=== PATIENT | male | born 2000 | race Caucasian/White ===

== ENCOUNTER 2024-10-17 11:57 | Inpatient (IN) | payer MEDICAID, OTHER, SELFPAY ==
[2024-10-17 12:10] VITALS: BP 145/76; PULSE 97; RESP 16; TEMP 37.3; O2SAT 98
[2024-10-17 14:02] LABS: Alanine Aminotransferase 56 U/L (0-40); Albumin Level 4.5 g/dL (3.5-5.0); Alkaline Phosphatase 88 U/L (39-117); Anion Gap 10 (12-20); Aspartate Amino Transferase 35 U/L (5-37); Bilirubin Total 0.5 mg/dL (0.0-1.0); Blood Urea Nitrogen 13 mg/dL (9-16); Calcium 9.8 mg/dL (8.4-10.2); Carbon Dioxide 25 mmol/L (22-29); Chloride 111 mmol/L (96-108); Estimated Glomerular Filt Rate > 60; Glucose Random 121 mg/dL (60-115); Potassium 3.7 mmol/L (3.3-5.1); Sodium 142 mmol/L (135-145)
--- NOTE | 2024-10-17 15:46 | PC.ADMIT ---
Dario is a 24 y/o telugu speaking male who was admitted to at [address] [facility] on A CV for treatment of psychosis, unspecified type diagnosis. The pt was initially sent to the hospital with SI and a plan to hang himself. Mom was reporting that he was not sleeping and was confused. Mom also says pt was having AH and fearful that others were out to get him. Pt denies AH or fears at this time saying,? everything is fine, I?m ok.? Pt is A&O X3, calm and cooperative. Pt reports no depression, but appears sad with a flat affect. Pt denying AVH at the time of the interview with the assembler flexible leads. Pt reported that he had fears of ?people being after him?, but not anymore. Pts speech is quit in tone. Pt denies ideation, plan or intent to harm self or others. He reports a good appetite and good sleep.? Pts tox screen was negative except for THC, last used prior to hospitalization. Pt has no known acute medical issues or concerns. His goal is to return home. Pt was placed on 15 safety checks.
[2024-10-17] MEDS: Flu Vacc TS2024-25(6mos up)/PF 0.5 ML SYRINGE IM (16:11)
[2024-10-17 19:40] VITALS: BP 142/74; PULSE 85; TEMP 36.5; O2SAT 99
[2024-10-17] MEDS: OLANZapine 5 MG TABLET PO (20:10)
[2024-10-18 08:00] VITALS: BP 144/83; PULSE 87; RESP 18; TEMP 36.3; O2SAT 99
[2024-10-18] MEDS: OLANZapine 5 MG TABLET PO ×2 (08:01→20:46)
[2024-10-18 08:32] LABS: Estimated Average Glucose 97 mg/dL; Hemoglobin A1C 125.3775 umol/L; Total Hemoglobin (HGBA1C) 4031.7699 umol/L
[2024-10-18 08:37] LABS: Cholesterol 104 mg/dL (<200); HDL Cholesterol 23 mg/dL (>40); LDL Cholesterol Calculated 45 mg/dL (<100); Triglycerides 180 mg/dL (<150)
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
[2024-10-18 20:00] VITALS: BP 140/79; PULSE 78; TEMP 36.4; O2SAT 97
[2024-10-19 08:00] VITALS: BP 165/86; PULSE 86; RESP 16; TEMP 36.5; O2SAT 100
[2024-10-19] MEDS: OLANZapine 5 MG TABLET PO ×2 (08:45→14:01)
--- NOTE | 2024-10-19 12:02 | HO.PSYCHPN ---
Subjective Subjective Date of Service: 10/19/24 Reason For Visit: decompensation Interim History: Met with patient; discussed with team Patient says that the AH of guns and drugs are gone however he is still hearing AH, saying piece of shit over and over; this was happening before 2 and now it has increased. Patient agrees to increase Zyprexa since it has already been helpful. Patient otherwise feels that his mood is better, good and he is feeling safe on the unit Mental Status Exam Mental Status Exam Narrative: Pt is alert and oriented; behavior is cooperative, friendly and calm; patient is not in distress; dressed in casual attire with unkempt hair, marginal hygiene; mood is described as good and affect congruent brighter, more calm; eye contact appropriate; Speech is normal rate, volume and prosody and not pressured; no psychomotor agitation/retardation present; thought process is concrete, goal directed; Thought content is on dealing with AH; 0 paranoid delusional thinking expressed; denies any SI/HI. Continued AH Patients insight and judgment impaired but improving Diagnostics Vital Signs (24Hr): Vital Signs - 24 hr 10/18/24 20:00 10/19/24 08:00 Temperature 97.6 F 97.7 F Pulse Rate 78 86 Respiratory Rate 16 Blood Pressure 140/79 H 165/86 H Pulse Oximetry 97 100 Oxygen Delivery Method Room Air Labs 10/17/24 13:03 Labs: Laboratory Results - last 48 hr 10/17/24 10/18/24 13:03 07:55 Sodium 142 Potassium 3.7 Chloride 111 H Carbon Dioxide 25 Anion Gap 10 L BUN 13 Creatinine 0.81 Estim Creat Clear Calc TNP Estimated GFR > 60 Random Glucose 121 H Estimat Average Glucose 97 Hemoglobin A1c % 5.0 Calcium 9.8 Total Bilirubin 0.5 AST 35 ALT 56 H Alkaline Phosphatase 88 Total Protein 8.0 Albumin 4.5 Triglycerides 180 H Cholesterol 104 LDL Cholesterol, Calc 45 HDL Cholesterol 23 L Medications Medications Current Medications Acetaminophen (Acetaminophen 325 Mg Tablet) 650 mg PO Q6H PRN PRN Reason: Headache/Pain Mild Scale (1-3) Al Hydroxide/Mg Hydroxide (Magnesium Hydrox/Alum Hydrox 30 Ml Oral.Susp) 30 ml PO Q6H PRN PRN Reason: Heartburn/Nausea Hydroxyzine HCl (Hydroxyzine Hcl 25 Mg Tablet) 25 mg PO Q6H PRN PRN Reason: Anxiety Magnesium Hydroxide (Milk Of Magnesia 30 Ml Oral.Susp) 30 ml PO DAILY PRN PRN Reason: Constipation Nicotine (Nicotine 21 Mg Patch.Td24) 21 mg TRANSDERMA DAILY PRN PRN Reason: smoking cessation Nicotine Polacrilex (Nicotine Polacrilex 2 Mg Gum) 4 mg BUCCAL Q2H PRN PRN Reason: Nicotine Cravings Olanzapine (Olanzapine 5 Mg Tablet) 5 mg PO TID PRN PRN Reason: agitation Olanzapine (Olanzapine 5 Mg Tablet) 5 mg PO BID UZMA Last Admin: 10/19/24 08:45 Dose: 5 mg Trazodone HCl (Trazodone Hcl 50 Mg Tablet) 50 mg PO BEDTIME MRX1 PRN PRN Reason: Insomnia Allergies Allergies Allergy/AdvReac Type Severity Reaction Status Date / Time No Known Allergies Allergy Verified 10/17/24 12:27 Assessment & Plan Assessment & Plan (1) Schizophreniform disorder: Status: Acute Code(s): F20.81 - Schizophreniform disorder (2) Schizoaffective disorder, depressive type: Status: Suspected Code(s): F25.1 - Schizoaffective disorder, depressive type Plan HPI: Pt is a 24 yo male, with hx of depression, who presented to ED for SI with thoughts to hang himself in face of AH and paranoid delusions. Pt reports that he has been very sad but is feeling better now. Although reticent pt shares that he was stressed from his job. Patient has been working at his job for 1 year. About 3 months ago he quit explaining that bad things were going on at his job and he was scared that they would kill me...lot of drugs and guns... Patient clarifies he did not see guns/drugs but would hear people talking to him about it, specifically he would hear Cristopher Dockery (a co-worker) tell him such things while patient was in the cooler, working by himself. He clarifies he never actually saw Cristopher say these things, but could just hear him. Pt quit his job and for past 3 months has been staying at his mothers house feeling sad and afraid; while at home, he continued with AH and paranoid ideations. This past week, feeling very scared, he for first time ever had thoughts about killing himself (though no intent). He eventually told this to his mom brought him to the Hospital. At ED, they gave him Zyprexa and since, he no longer hears any voices or is worried about work, even feeling he could return. -uses cannabis daily; denies other drug/alcohol use -no hx of manic episodes -hx of depressive episodes that can last for weeks; not having a dad has been a source of emotional pain Formulation/clinical reasoning: Patient has a history of depression; seems that psychotic illness has revealed itself as over the past 3 months he has been having auditory hallucinations and paranoid delusions. Does not meet full criteria for schizophrenia since only 3 months but the consistency of symptoms strongly lean diagnosis in that direction. Technically meets criteria for schizophreniform; combined with depression likely schizoaffective disorder depressed type. Patient does not have insight that his past concerns are due to psychotic symptoms. However, he is grateful that Zyprexa medication, started in the emergency room, has resolved AH and his worries about work. Patient is amenable to continuing with treatment with Zyprexa. Patient still seems depressed, however this may be due to anxiety and missing his mother as patient is only 24 yo, hospitalized, [place] and with limited [place] speaking skills. Hospital course: 10/19 Patient says that the AH of guns and drugs are gone however he is still hearing AH, saying piece of shit over and over; this was happening before 2 and now it has increased.? Patient agrees to increase Zyprexa since it has already been helpful.? Patient otherwise feels that his mood is better, good and he is feeling safe on the unit; of note affect is noticeably brighter and more calm -play writer discussed diagnosis and patient seemed to understand that none of this is true but that his brain is playing tricks on him and that medication is the treatment Plan: CV Q 15 minute checks Continue Zyprexa 5 mg b.i.d. Gather collateral; patient gave permission to call his mother Patient educated on: diagnosis and medication risk/benefits Informed Consent: understands and further education needed Reason for continued inpatient stay Substantial Risk for: stable for discharge and rapid decompensation Time Spent With Patient Time: Total time managing care of this patient today ____ minutes.
[2024-10-19 20:00] VITALS: BP 156/93; PULSE 98; TEMP 36.8; O2SAT 98
[2024-10-19] MEDS: OLANZapine 10 MG TABLET PO (21:07)
--- NOTE | 2024-10-20 05:52 | P.PNPSI_ITS ---
Subjective Subjective Date of Service: 10/20/24 Reason For Visit: decompensation Subjective Notes: Conditional Voluntary Healthcare Proxy: No Guardianship: No Medical Problems Affecting Mental Status: No Interim History: Met with pt using computer bilingual customer service. Reviewed with team. Reports voices continue- they are saying his name, telling him he is fat, a piece of s---, and too big to matter. Feeling safe and supported on the unit, using prn's, feeling bored. Family is visiting today. Amimon playing is helpful to manage sx and pt is participating Medication Compliance: Yes Side effects from medications: No Attending Groups: Intermittent Review of Systems Acute medical concerns: No Medical Review of Systems: unchanged Review of Systems Review of Systems denies Mental Status Exam Mental Status Exam Patient Appearance: Appropriate Patient Orientation: Person, Place, Time and Situation Level of Consciousness: Alert Patient Behavior: Talkative, Suspicious and Good Eye Contact Mood Description: Depressed Affect Description: Flat Patient Cognition Impaired: No Ability to Follow Directions: Good Speech Pattern: Spontaneous Speech Memory Description: Intact Hallucinations: Auditory Perceptual Disturbances: Derealization Thought Process: Rumination Thought Content: positive for Circumstantial and positive for Perseveration Depressive Symptoms: Feelings of Worthlessness, Hopelessness, Unhappiness, Increased Fatigue, Low Self Esteem and Loss of Energy Judgement: Fair Diagnostics Vital Signs (24Hr): Vital Signs - 24 hr 10/19/24 08:00 10/19/24 20:00 Temperature 97.7 F 98.2 F Pulse Rate 86 98 Respiratory Rate 16 Blood Pressure 165/86 H 156/93 H Pulse Oximetry 100 98 Oxygen Delivery Method Room Air Labs 10/17/24 13:03 Labs: Laboratory Results - last 48 hr 10/18/24 07:55 Estimat Average Glucose 97 Hemoglobin A1c % 5.0 Triglycerides 180 H Cholesterol 104 LDL Cholesterol, Calc 45 HDL Cholesterol 23 L Medications Medications Current Medications Acetaminophen (Acetaminophen 325 Mg Tablet) 650 mg PO Q6H PRN PRN Reason: Headache/Pain Mild Scale (1-3) Al Hydroxide/Mg Hydroxide (Magnesium Hydrox/Alum Hydrox 30 Ml Oral.Susp) 30 ml PO Q6H PRN PRN Reason: Heartburn/Nausea Hydroxyzine HCl (Hydroxyzine Hcl 25 Mg Tablet) 25 mg PO Q6H PRN PRN Reason: Anxiety Magnesium Hydroxide (Milk Of Magnesia 30 Ml Oral.Susp) 30 ml PO DAILY PRN PRN Reason: Constipation Nicotine (Nicotine 21 Mg Patch.Td24) 21 mg TRANSDERMA DAILY PRN PRN Reason: smoking cessation Nicotine Polacrilex (Nicotine Polacrilex 2 Mg Gum) 4 mg BUCCAL Q2H PRN PRN Reason: Nicotine Cravings Olanzapine (Olanzapine 5 Mg Tablet) 5 mg PO TID PRN PRN Reason: agitation Olanzapine (Olanzapine 10 Mg Tablet) 10 mg PO BID UZMA Last Admin: 10/19/24 21:07 Dose: 10 mg Trazodone HCl (Trazodone Hcl 50 Mg Tablet) 50 mg PO BEDTIME MRX1 PRN PRN Reason: Insomnia Allergies Allergies Allergy/AdvReac Type Severity Reaction Status Date / Time No Known Allergies Allergy Verified 10/17/24 12:27 Assessment & Plan Assessment & Plan (1) Schizophreniform disorder: Status: Acute Code(s): F20.81 - Schizophreniform disorder (2) Schizoaffective disorder, depressive type: Status: Suspected Code(s): F25.1 - Schizoaffective disorder, depressive type Plan HPI: Pt is a 24 yo male, with hx of depression, who presented to ED for SI with thoughts to hang himself in face of AH and paranoid delusions. Pt reports that he has been very sad but is feeling better now. Although reticent pt shares that he was stressed from his job. Patient has been working at his job for 1 year. About 3 months ago he quit explaining that bad things were going on at his job and he was scared that they would kill me...lot of drugs and guns... Patient clarifies he did not see guns/drugs but would hear people talking to him about it, specifically he would hear Cristopher Dockery (a co-worker) tell him such things while patient was in the cooler, working by himself. He clarifies he never actually saw Cristopher say these things, but could just hear him. Pt quit his job and for past 3 months has been staying at his mothers house feeling sad and afraid; while at home, he continued with AH and paranoid ideations. This past week, feeling very scared, he for first time ever had thoughts about killing himself (though no intent). He eventually told this to his mom brought him to the Hospital. At ED, they gave him Zyprexa and since, he no longer hears any voices or is worried about work, even feeling he could return. -uses cannabis daily; denies other drug/alcohol use -no hx of manic episodes -hx of depressive episodes that can last for weeks; not having a dad has been a source of emotional pain Formulation/clinical reasoning: Patient has a history of depression; seems that psychotic illness has revealed itself as over the past 3 months he has been having auditory hallucinations and paranoid delusions. Does not meet full criteria for schizophrenia since only 3 months but the consistency of symptoms strongly lean diagnosis in that direction. Technically meets criteria for schizophreniform; combined with depression likely schizoaffective disorder depressed type. Patient does not have insight that his past concerns are due to psychotic symptoms. However, he is grateful that Zyprexa medication, started in the emergency room, has resolved AH and his worries about work. Patient is amenable to continuing with treatment with Zyprexa. Patient still seems depressed, however this may be due to anxiety and missing his mother as patient is only 24 yo, hospitalized, [place] and with limited [place] speaking skills. Hospital course: 10/19 Patient says that the AH of guns and drugs are gone however he is still hearing AH, saying piece of shit over and over; this was happening before 2 and now it has increased.? Patient agrees to increase Zyprexa since it has already been helpful.? Patient otherwise feels that his mood is better, good and he is feeling safe on the unit; of note affect is noticeably brighter and more calm -technical writer and editor discussed diagnosis and patient seemed to understand that none of this is true but that his brain is playing tricks on him and that medication is the treatment. 10/20- Continue current regime and plan of care. Plan: CV Q 15 minute checks Continue Zyprexa 5 mg b.i.d. Gather collateral; patient gave permission to call his mother Informed Consent: understands Reason for continued inpatient stay Substantial Risk for: rapid decompensation Time Spent With Patient Time: Total time managing care of this patient today ____ minutes.
[2024-10-20 08:00] VITALS: BP 148/81; PULSE 83; RESP 18; TEMP 36.7; O2SAT 100
[2024-10-20] MEDS: OLANZapine 10 MG TABLET PO ×2 (08:22→21:00)
[2024-10-20] MEDS: hydrOXYzine HCL 25 MG TABLET PO (11:32)
[2024-10-20] MEDS: OLANZapine 5 MG TABLET PO (11:33)
[2024-10-20 19:48] VITALS: BP 125/62; PULSE 113; TEMP 36.2; O2SAT 97
[2024-10-20] MEDS: traZODone HCL 50 MG TABLET PO (21:00)
[2024-10-21 07:47] VITALS: BP 176/97; PULSE 90; RESP 16; TEMP 36.9; O2SAT 97
[2024-10-21] MEDS: OLANZapine 10 MG TABLET PO (08:01)
--- NOTE | 2024-10-21 08:44 | P.PNPSI_ITS ---
Subjective Subjective Date of Service: 10/21/24 Reason For Visit: decompensation Subjective Notes: Conditional Voluntary Healthcare Proxy: No Guardianship: No Medical Problems Affecting Mental Status: No Interim History: Met with pt, reviewed with team. Pt reports sx persist. Increase in voices that interfere with sleep. HTN is present 176/97 this a.m. Will increase Olanzapine to 15 mg bid, add Clonidine 0.1 mg bid and Haldol 2 mg bid prn for voices. Medication Compliance: Yes Side effects from medications: No Attending Groups: Intermittent Review of Systems Acute medical concerns: No Medical Review of Systems: unchanged Review of Systems Review of Systems Voices Mental Status Exam Mental Status Exam Patient Appearance: Appropriate Patient Orientation: Person, Place, Time and Situation Level of Consciousness: Alert Patient Behavior: Talkative, Suspicious and Good Eye Contact Mood Description: Depressed Affect Description: Flat Patient Cognition Impaired: No Ability to Follow Directions: Good Speech Pattern: Spontaneous Speech Memory Description: Intact Hallucinations: Auditory Perceptual Disturbances: Derealization Thought Process: Rumination Thought Content: positive for Circumstantial and positive for Perseveration Depressive Symptoms: Feelings of Worthlessness, Hopelessness, Unhappiness, Increased Fatigue, Low Self Esteem and Loss of Energy Judgement: Fair Diagnostics Vital Signs (24Hr): Vital Signs - 24 hr 10/20/24 19:48 10/21/24 07:47 Temperature 97.2 F 98.5 F Pulse Rate 113 H 90 Respiratory Rate 16 Blood Pressure 125/62 176/97 H Pulse Oximetry 97 97 Oxygen Delivery Method Room Air Room Air Labs 10/17/24 13:03 Medications Medications Current Medications Acetaminophen (Acetaminophen 325 Mg Tablet) 650 mg PO Q6H PRN PRN Reason: Headache/Pain Mild Scale (1-3) Al Hydroxide/Mg Hydroxide (Magnesium Hydrox/Alum Hydrox 30 Ml Oral.Susp) 30 ml PO Q6H PRN PRN Reason: Heartburn/Nausea Hydroxyzine HCl (Hydroxyzine Hcl 25 Mg Tablet) 25 mg PO Q6H PRN PRN Reason: Anxiety Last Admin: 10/20/24 11:32 Dose: 25 mg Magnesium Hydroxide (Milk Of Magnesia 30 Ml Oral.Susp) 30 ml PO DAILY PRN PRN Reason: Constipation Nicotine (Nicotine 21 Mg Patch.Td24) 21 mg TRANSDERMA DAILY PRN PRN Reason: smoking cessation Nicotine Polacrilex (Nicotine Polacrilex 2 Mg Gum) 4 mg BUCCAL Q2H PRN PRN Reason: Nicotine Cravings Olanzapine (Olanzapine 5 Mg Tablet) 5 mg PO TID PRN PRN Reason: agitation Last Admin: 10/20/24 11:33 Dose: 5 mg Olanzapine (Olanzapine 10 Mg Tablet) 10 mg PO BID UZMA Last Admin: 10/21/24 08:01 Dose: 10 mg Trazodone HCl (Trazodone Hcl 50 Mg Tablet) 50 mg PO BEDTIME MRX1 PRN PRN Reason: Insomnia Last Admin: 10/20/24 21:00 Dose: 50 mg Allergies Allergies Allergy/AdvReac Type Severity Reaction Status Date / Time No Known Allergies Allergy Verified 10/17/24 12:27 Assessment & Plan Assessment & Plan (1) Schizophreniform disorder: Status: Acute Code(s): F20.81 - Schizophreniform disorder (2) Schizoaffective disorder, depressive type: Status: Suspected Code(s): F25.1 - Schizoaffective disorder, depressive type Plan HPI: Pt is a 24 yo male, with hx of depression, who presented to ED for SI with thoughts to hang himself in face of AH and paranoid delusions. Pt reports that he has been very sad but is feeling better now. Although reticent pt shares that he was stressed from his job. Patient has been working at his job for 1 year. About 3 months ago he quit explaining that bad things were going on at his job and he was scared that they would kill me...lot of drugs and guns... Patient clarifies he did not see guns/drugs but would hear people talking to him about it, specifically he would hear Cristopher Dockery (a co-worker) tell him such things while patient was in the cooler, working by himself. He clarifies he never actually saw Cristopher say these things, but could just hear him. Pt quit his job and for past 3 months has been staying at his mothers house feeling sad and afraid; while at home, he continued with AH and paranoid ideations. This past week, feeling very scared, he for first time ever had thoughts about killing himself (though no intent). He eventually told this to his mom brought him to the Hospital. At ED, they gave him Zyprexa and since, he no longer hears any voices or is worried about work, even feeling he could return. -uses cannabis daily; denies other drug/alcohol use -no hx of manic episodes -hx of depressive episodes that can last for weeks; not having a dad has been a source of emotional pain Formulation/clinical reasoning: Patient has a history of depression; seems that psychotic illness has revealed itself as over the past 3 months he has been having auditory hallucinations and paranoid delusions. Does not meet full criteria for schizophrenia since only 3 months but the consistency of symptoms strongly lean diagnosis in that direction. Technically meets criteria for schizophreniform; combined with depression likely schizoaffective disorder depressed type. Patient does not have insight that his past concerns are due to psychotic symptoms. However, he is grateful that Zyprexa medication, started in the emergency room, has resolved AH and his worries about work. Patient is amenable to continuing with treatment with Zyprexa. Patient still seems depressed, however this may be due to anxiety and missing his mother as patient is only 24 yo, hospitalized, [place] and with limited Filipino speaking skills. Hospital course: 10/19 Patient says that the AH of guns and drugs are gone however he is still hearing AH, saying piece of shit over and over; this was happening before 2 and now it has increased.? Patient agrees to increase Zyprexa since it has already been helpful.? Patient otherwise feels that his mood is better, good and he is feeling safe on the unit; of note affect is noticeably brighter and more calm -automatic typewriter inspector discussed diagnosis and patient seemed to understand that none of this is true but that his brain is playing tricks on him and that medication is the treatment 10/21: Increase Olanzapine to 15 mg bid Clonidine 0.1 mg bid Haldol 2 mg bid prn auditory perceptual alterations Plan: CV Q 15 minute checks Continue Zyprexa 5 mg b.i.d. Gather collateral; patient gave permission to call his mother Reason for continued inpatient stay Substantial Risk for: rapid decompensation Time Spent With Patient Time: Total time managing care of this patient today ____ minutes.
[2024-10-21 20:00] VITALS: BP 145/86; PULSE 112; TEMP 36.4; O2SAT 98
[2024-10-21 21:28] VITALS: BP 145/86
[2024-10-21] MEDS: cloNIDine HCL 0.1 MG TABLET PO (21:28)
[2024-10-21] MEDS: OLANZapine 7.5 MG TABLET 15 MG PO (21:28)
[2024-10-22 08:31] VITALS: BP 127/58; PULSE 90; RESP 18; TEMP 36.9; O2SAT 99
[2024-10-22] MEDS: cloNIDine HCL 0.1 MG TABLET PO ×2 (08:33→20:18)
[2024-10-22] MEDS: OLANZapine 7.5 MG TABLET 15 MG PO (08:33)
[2024-10-22] MEDS: risperiDONE 1 MG TABLET PO ×2 (13:14→21:30)
--- NOTE | 2024-10-22 19:07 | P.PNPSI_ITS ---
Subjective Subjective Date of Service: 10/22/24 Reason For Visit: decompensation Interim History: Met with patient; discussed with team Seen with Ukrainian-speaking staff Patient reports that he is continuing to have auditory hallucinations. He keeps hearing Daroi, fat Dario, Dario as a shit... And says that AH is more pronounced than before. Not so worried about guns and drugs at the where house. Patient's mother also came to visit. Drug Abuse Program Coordinator discussed with both of them diagnosis and treatment. Mother asked about medications and both agreed for patient to switch to risperidone given that Zyprexa has not seemed all that effective; mother also asked about whether not natural remedies would be helpful however she seemed to accept writers explanation for antipsychotic treatment for psychotic illness. Both agreed with patient staying on the unit longer to try risperidone; however later on, talking in Ukrainian, patient's mother was overheard telling her son that he does not have a psychotic disorder, that this will get better, that there will be natural treatments... Mental Status Exam Mental Status Exam Narrative: Pt is alert and oriented; behavior is cooperative, friendly and calm; patient is not in distress; dressed in casual attire, obese with unkempt hair, marginal hygiene; mood is described as okay and affect congruent, a little downcast; eye contact appropriate; Speech is normal rate, volume and prosody and not pressured; no psychomotor agitation/retardation present; thought process is concrete, goal directed; Thought content is on dealing with AH; currently no paranoid delusional thinking expressed; denies any SI/HI. Continued AH Patients insight and judgment impaired Diagnostics Vital Signs (24Hr): Vital Signs - 24 hr 10/21/24 20:00 10/21/24 21:28 10/22/24 08:31 Temperature 97.5 F 98.4 F Pulse Rate 112 H 90 Respiratory Rate 18 Blood Pressure 145/86 H 145/86 H 127/58 L Pulse Oximetry 98 99 Oxygen Delivery Method Room Air Room Air Labs 10/17/24 13:03 Medications Medications Current Medications Acetaminophen (Acetaminophen 325 Mg Tablet) 650 mg PO Q6H PRN PRN Reason: Headache/Pain Mild Scale (1-3) Al Hydroxide/Mg Hydroxide (Magnesium Hydrox/Alum Hydrox 30 Ml Oral.Susp) 30 ml PO Q6H PRN PRN Reason: Heartburn/Nausea Clonidine HCl (Clonidine Hcl 0.1 Mg Tablet) 0.1 mg PO BID UZMA; Protocol Last Admin: 10/22/24 08:33 Dose: 0.1 mg Haloperidol (Haloperidol 1 Mg Tablet) 2 mg PO BID PRN PRN Reason: auditory perceptual alteration Hydroxyzine HCl (Hydroxyzine Hcl 25 Mg Tablet) 25 mg PO Q6H PRN PRN Reason: Anxiety Last Admin: 10/20/24 11:32 Dose: 25 mg Magnesium Hydroxide (Milk Of Magnesia 30 Ml Oral.Susp) 30 ml PO DAILY PRN PRN Reason: Constipation Nicotine (Nicotine 21 Mg Patch.Td24) 21 mg TRANSDERMA DAILY PRN PRN Reason: smoking cessation Nicotine Polacrilex (Nicotine Polacrilex 2 Mg Gum) 4 mg BUCCAL Q2H PRN PRN Reason: Nicotine Cravings Olanzapine (Olanzapine 5 Mg Tablet) 5 mg PO TID PRN PRN Reason: agitation Last Admin: 10/20/24 11:33 Dose: 5 mg Olanzapine (Olanzapine 7.5 Mg Tablet) 15 mg PO BID [facility] Last Admin: 10/22/24 08:33 Dose: 15 mg Risperidone (Risperidone 1 Mg Tablet) 1 mg PO BID [facility] Trazodone HCl (Trazodone Hcl 50 Mg Tablet) 50 mg PO BEDTIME MRX1 PRN PRN Reason: Insomnia Last Admin: 10/20/24 21:00 Dose: 50 mg Allergies Allergies Allergy/AdvReac Type Severity Reaction Status Date / Time No Known Allergies Allergy Verified 10/17/24 12:27 Assessment & Plan Assessment & Plan (1) Schizophreniform disorder: Status: Acute Code(s): F20.81 - Schizophreniform disorder (2) Schizoaffective disorder, depressive type: Status: Suspected Code(s): F25.1 - Schizoaffective disorder, depressive type Plan HPI: Pt is a 24 yo male, with hx of depression, who presented to ED for SI with thoughts to hang himself in face of AH and paranoid delusions. Pt reports that he has been very sad but is feeling better now. Although reticent pt shares that he was stressed from his job. Patient has been working at his job for 1 year. About 3 months ago he quit explaining that bad things were going on at his job and he was scared that they would kill me...lot of drugs and guns... Patient clarifies he did not see guns/drugs but would hear people talking to him about it, specifically he would hear Cristopher Dockery (a co-worker) tell him such things while patient was in the cooler, working by himself. He clarifies he never actually saw Cristopher say these things, but could just hear him. Pt quit his job and for past 3 months has been staying at his mothers house feeling sad and afraid; while at home, he continued with AH and paranoid ideations. This past week, feeling very scared, he for first time ever had thoughts about killing himself (though no intent). He eventually told this to his mom brought him to the Hospital. At ED, they gave him Zyprexa and since, he no longer hears any voices or is worried about work, even feeling he could return. -uses cannabis daily; denies other drug/alcohol use -no hx of manic episodes -hx of depressive episodes that can last for weeks; not having a dad has been a source of emotional pain Formulation/clinical reasoning: Patient has a history of depression; seems that psychotic illness has revealed itself as over the past 3 months he has been having auditory hallucinations and paranoid delusions. Does not meet full criteria for schizophrenia since only 3 months but the consistency of symptoms strongly lean diagnosis in that direction. Technically meets criteria for schizophreniform; combined with depression likely schizoaffective disorder depressed type. Patient does not have insight that his past concerns are due to psychotic symptoms. However, he is grateful that Zyprexa medication, started in the emergency room, has resolved AH and his worries about work. Patient is amenable to continuing with treatment with Zyprexa. Patient still seems depressed, however this may be due to anxiety and missing his mother as patient is only 24 yo, hospitalized, [place] and with limited Spanish speaking skills. Hospital course: 10/19 Patient says that the AH of guns and drugs are gone however he is still hearing AH, saying piece of shit over and over; this was happening before 2 and now it has increased.? Patient agrees to increase Zyprexa since it has already been helpful.? Patient otherwise feels that his mood is better, good and he is feeling safe on the unit; of note affect is noticeably brighter and more calm -credit underwriter discussed diagnosis and patient seemed to understand that none of this is true but that his brain is playing tricks on him and that medication is the treatment 10/21: Increase Olanzapine to 15 mg bid Clonidine 0.1 mg bid Haldol 2 mg bid prn auditory perceptual alterations 10/22 Patient reports that he is continuing to have auditory hallucinations. He keeps hearing Dario, fat Dario, Dario as a shit... And says that AH is more pronounced than before. Not so worried about guns and drugs at the where house. Patient's mother also came to visit. Drug Abuse Program Coordinator discussed with both of them diagnosis and treatment. Mother asked about medications and both agreed for patient to switch to risperidone given that Zyprexa has not seemed all that effective; mother also asked about whether not natural remedies would be helpful however she seemed to accept writers explanation for antipsychotic treatment for psychotic illness. Both agreed with patient staying on the unit longer to try risperidone; however later on, talking in Ukrainian, patient's mother was overheard telling her son that he does not have a psychotic disorder, that this will get better, that there will be natural treatments... Also, although patient agreed to stay, he kept asking his mother in Ukrainian if he was going home with her even after she told him no. Intellectual disability? -patient's mom did say that some family relatives had psychotic illness but that perhaps it was due to an environmental flu and resolved on its own -will continue to try and treat patient to see if symptoms resolve. Otherwise patient has remained in good behavioral and impulse control; says no SI at all which has remained fully resolved since admission. Plan: CV Q 15 minute checks Start risperidone 1 mg b.i.d. WILIAM Merrill Gather collateral; patient gave permission to call his mother Patient educated on: diagnosis and medication risk/benefits Informed Consent: understands, does not understand and further education needed Reason for continued inpatient stay Substantial Risk for: stable for discharge and rapid decompensation Time Spent With Patient Time: Total time managing care of this patient today ____ minutes.
[2024-10-22 20:00] VITALS: BP 147/71; PULSE 109; TEMP 36.4; O2SAT 97
[2024-10-22 20:18] VITALS: BP 147/71
[2024-10-22] MEDS: hydrOXYzine HCL 25 MG TABLET PO (23:29)
[2024-10-23 08:05] VITALS: BP 168/81; PULSE 97; RESP 18; TEMP 37.2; O2SAT 99
[2024-10-23] MEDS: risperiDONE 1 MG TABLET PO (08:31)
[2024-10-23] MEDS: cloNIDine HCL 0.1 MG TABLET PO ×2 (08:31→20:23)
--- NOTE | 2024-10-23 09:38 | P.PNPSI_ITS ---
Subjective Subjective Date of Service: 10/23/24 Reason For Visit: decompensation Interim History: met with patient and paraprofessional interpreter; discussed with team pt initially said all AH is gone; however once principal technical writer explained that he'll be able to discharge this , regardless of AH...he recounted and said he is still having AH, saying negative things about him; he says it is perhaps a little less than before. His mood however is good and he says he is feeling calmer which staff has noticed; patient going to groups as well and asked to play the [employer]. Discussed medications and patient agrees to increase risperidone Mental Status Exam Mental Status Exam Narrative: Pt is alert and oriented; behavior is cooperative, friendly and calm; patient is not in distress; dressed in casual attire, obese with unkempt hair, marginal hygiene; mood is described as good and affect congruent, a little brighter and more calm; eye contact appropriate; Speech is normal rate, volume and prosody and not pressured; no psychomotor agitation/retardation present; thought process is concrete, goal directed; Thought content is on dealing with AH and discharge; denies paranoid delusional thinking and none expressed; denies any SI/HI. Continued AH Patients insight and judgment impaired but improved. Diagnostics Vital Signs (24Hr): Vital Signs - 24 hr 10/22/24 20:00 10/22/24 20:18 10/23/24 08:05 Temperature 97.5 F 99.0 F Pulse Rate 109 H 97 Respiratory Rate 18 Blood Pressure 147/71 H 147/71 H 168/81 H Pulse Oximetry 97 99 Oxygen Delivery Method Room Air Room Air Labs 10/17/24 13:03 Medications Medications Current Medications Acetaminophen (Acetaminophen 325 Mg Tablet) 650 mg PO Q6H PRN PRN Reason: Headache/Pain Mild Scale (1-3) Al Hydroxide/Mg Hydroxide (Magnesium Hydrox/Alum Hydrox 30 Ml Oral.Susp) 30 ml PO Q6H PRN PRN Reason: Heartburn/Nausea Clonidine HCl (Clonidine Hcl 0.1 Mg Tablet) 0.1 mg PO BID UZMA; Protocol Last Admin: 10/23/24 08:31 Dose: 0.1 mg Hydroxyzine HCl (Hydroxyzine Hcl 25 Mg Tablet) 25 mg PO Q6H PRN PRN Reason: Anxiety Last Admin: 10/22/24 23:29 Dose: 25 mg Magnesium Hydroxide (Milk Of Magnesia 30 Ml Oral.Susp) 30 ml PO DAILY PRN PRN Reason: Constipation Nicotine (Nicotine 21 Mg Patch.Td24) 21 mg TRANSDERMA DAILY PRN PRN Reason: smoking cessation Nicotine Polacrilex (Nicotine Polacrilex 2 Mg Gum) 4 mg BUCCAL Q2H PRN PRN Reason: Nicotine Cravings Risperidone (Risperidone 1 Mg Tablet) 1 mg PO BID UZMA Last Admin: 10/23/24 08:31 Dose: 1 mg Trazodone HCl (Trazodone Hcl 50 Mg Tablet) 50 mg PO BEDTIME MRX1 PRN PRN Reason: Insomnia Last Admin: 10/20/24 21:00 Dose: 50 mg Allergies Allergies Allergy/AdvReac Type Severity Reaction Status Date / Time No Known Allergies Allergy Verified 10/17/24 12:27 Assessment & Plan Assessment & Plan (1) Schizophreniform disorder: Status: Acute Code(s): F20.81 - Schizophreniform disorder (2) Schizoaffective disorder, depressive type: Status: Suspected Code(s): F25.1 - Schizoaffective disorder, depressive type Plan HPI: Pt is a 24 yo male, with hx of depression, who presented to ED for SI with thoughts to hang himself in face of AH and paranoid delusions. Pt reports that he has been very sad but is feeling better now. Although reticent pt shares that he was stressed from his job. Patient has been working at his job for 1 year. About 3 months ago he quit explaining that bad things were going on at his job and he was scared that they would kill me...lot of drugs and guns... Patient clarifies he did not see guns/drugs but would hear people talking to him about it, specifically he would hear Cristopher Dockery (a co-worker) tell him such things while patient was in the cooler, working by himself. He clarifies he never actually saw Cristopher say these things, but could just hear him. Pt quit his job and for past 3 months has been staying at his mothers house feeling sad and afraid; while at home, he continued with AH and paranoid ideations. This past week, feeling very scared, he for first time ever had thoughts about killing himself (though no intent). He eventually told this to his mom brought him to the Hospital. At ED, they gave him Zyprexa and since, he no longer hears any voices or is worried about work, even feeling he could return. -uses cannabis daily; denies other drug/alcohol use -no hx of manic episodes -hx of depressive episodes that can last for weeks; not having a dad has been a source of emotional pain Formulation/clinical reasoning: Patient has a history of depression; seems that psychotic illness has revealed itself as over the past 3 months he has been having auditory hallucinations and paranoid delusions. Does not meet full criteria for schizophrenia since only 3 months but the consistency of symptoms strongly lean diagnosis in that direction. Technically meets criteria for schizophreniform; combined with depression likely schizoaffective disorder depressed type. Patient does not have insight that his past concerns are due to psychotic symptoms. However, he is grateful that Zyprexa medication, started in the emergency room, has resolved AH and his worries about work. Patient is amenable to continuing with treatment with Zyprexa. Patient still seems depressed, however this may be due to anxiety and missing his mother as patient is only 24 yo, hospitalized, [place] and with limited Yakut speaking skills. Hospital course: 10/19 Patient says that the AH of guns and drugs are gone however he is still hearing AH, saying piece of shit over and over; this was happening before 2 and now it has increased.? Patient agrees to increase Zyprexa since it has already been helpful.? Patient otherwise feels that his mood is better, good and he is feeling safe on the unit; of note affect is noticeably brighter and more calm -principal technical writer discussed diagnosis and patient seemed to understand that none of this is true but that his brain is playing tricks on him and that medication is the treatment 10/21: Increase Olanzapine to 15 mg bid Clonidine 0.1 mg bid Haldol 2 mg bid prn auditory perceptual alterations 10/22 Patient reports that he is continuing to have auditory hallucinations. He keeps hearing Dario, fat Dario, Dario as a shit... And says that AH is more pronounced than before. Not so worried about guns and drugs at the where house. Patient's mother also came to visit. Woods Superintendent discussed with both of them diagnosis and treatment. Mother asked about medications and both agreed for patient to switch to risperidone given that Zyprexa has not seemed all that effective; mother also asked about whether not natural remedies would be helpful however she seemed to accept writers explanation for antipsychotic treatment for psychotic illness. Both agreed with patient staying on the unit longer to try risperidone; however later on, talking in [place]cu[place], patient's mother was overheard telling her son that he does not have a psychotic disorder, that this will get better, that there will be natural treatments... Also, although patient agreed to stay, he kept asking his mother in [place] if he was going home with her even after she told him no. Intellectual disability? -patient's mom did say that some family relatives had psychotic illness but that perhaps it was due to an environmental flu and resolved on its own -will continue to try and treat patient to see if symptoms resolve. Otherwise patient has remained in good behavioral and impulse control; says no SI at all which has remained fully resolved since admission. 10/23 pt initially said all AH is gone; however once principal technical writer explained that he'll be able to discharge this , regardless of AH...he recounted and said he is still having AH, saying negative things about him; he says it is perhaps a little less than before. His mood however is good and he says he is feeling calmer which staff has noticed; patient going to groups as well and asked to play the guitar. Discussed medications and patient agrees to increase risperidone -patient reports no SI at all and that his mood is in fact better. Woods Superintendent agrees that patient is not in imminent risk for harm to self or others but would benefit from seeing if a medication could help reduce experience of AH; patient agrees and is willing to stay on the unit a few days longer for this purpose. Plan: CV Q 15 minute checks Increase to risperidone 2 mg b.i.d. DC Zyprexa Gather collateral; patient gave permission to call his mother Patient educated on: diagnosis and medication risk/benefits Informed Consent: understands and further education needed Reason for continued inpatient stay Substantial Risk for: stable for discharge and rapid decompensation Time Spent With Patient Time: Total time managing care of this patient today ____ minutes.
[2024-10-23 09:45] VITALS: BP 135/92; PULSE 125
[2024-10-23] MEDS: risperiDONE 2 MG TABLET PO ×2 (14:24→20:23)
[2024-10-23 20:00] VITALS: BP 141/90; PULSE 110; TEMP 36.1; O2SAT 97
[2024-10-23 20:23] VITALS: BP 141/90
[2024-10-23] MEDS: traZODone HCL 50 MG TABLET PO (23:07)
[2024-10-24 08:30] VITALS: BP 130/66; PULSE 93; RESP 16; TEMP 36.6; O2SAT 99
[2024-10-24] MEDS: risperiDONE 2 MG TABLET PO (08:40)
[2024-10-24] MEDS: cloNIDine HCL 0.1 MG TABLET PO ×2 (08:40→20:41)
--- NOTE | 2024-10-24 11:17 | HO.PSYCHPN ---
Subjective Subjective Date of Service: 10/24/24 Reason For Visit: decompensation Interim History: Met with patient; discussed with team Patient reports that he is doing okay however AH remains saying that he is a piece of shit and has not decreased with Risperdal. Agrees to try Haldol. Either way patient wants to discharge tomorrow regardless of whether or not symptoms are reduced. Denies any SI at all and just wants to get to seeing his mother. Mental Status Exam Mental Status Exam Narrative: Pt is alert and oriented; behavior is cooperative, friendly and calm; patient is not in distress; dressed in casual attire, obese with unkempt hair, marginal hygiene; mood is described as good and affect congruent, a little brighter and more calm; eye contact appropriate; Speech is normal rate, volume and prosody and not pressured; no psychomotor agitation/retardation present; thought process is concrete, goal directed; Thought content is on dealing with AH and discharge; denies paranoid delusional thinking and none expressed; denies any SI/HI. Continued AH Patients insight and judgment impaired but improved since admission and adequate. Diagnostics Vital Signs (24Hr): Vital Signs - 24 hr 10/23/24 20:00 10/23/24 20:23 10/24/24 08:30 Temperature 96.9 F 97.8 F Pulse Rate 110 H 93 Respiratory Rate 16 Blood Pressure 141/90 H 141/90 H 130/66 Pulse Oximetry 97 99 Oxygen Delivery Method Room Air Room Air Labs 10/17/24 13:03 Medications Medications Current Medications Acetaminophen (Acetaminophen 325 Mg Tablet) 650 mg PO Q6H PRN PRN Reason: Headache/Pain Mild Scale (1-3) Al Hydroxide/Mg Hydroxide (Magnesium Hydrox/Alum Hydrox 30 Ml Oral.Susp) 30 ml PO Q6H PRN PRN Reason: Heartburn/Nausea Clonidine HCl (Clonidine Hcl 0.1 Mg Tablet) 0.1 mg PO BID UZMA; Protocol Last Admin: 10/24/24 08:40 Dose: 0.1 mg Hydroxyzine HCl (Hydroxyzine Hcl 25 Mg Tablet) 25 mg PO Q6H PRN PRN Reason: Anxiety Last Admin: 10/22/24 23:29 Dose: 25 mg Magnesium Hydroxide (Milk Of Magnesia 30 Ml Oral.Susp) 30 ml PO DAILY PRN PRN Reason: Constipation Nicotine (Nicotine 21 Mg Patch.Td24) 21 mg TRANSDERMA DAILY PRN PRN Reason: smoking cessation Nicotine Polacrilex (Nicotine Polacrilex 2 Mg Gum) 4 mg BUCCAL Q2H PRN PRN Reason: Nicotine Cravings Risperidone (Risperidone 2 Mg Tablet) 2 mg PO BID UZMA Last Admin: 10/24/24 08:40 Dose: 2 mg Trazodone HCl (Trazodone Hcl 50 Mg Tablet) 50 mg PO BEDTIME MRX1 PRN PRN Reason: Insomnia Last Admin: 10/23/24 23:07 Dose: 50 mg Allergies Allergies Allergy/AdvReac Type Severity Reaction Status Date / Time No Known Allergies Allergy Verified 10/17/24 12:27 Assessment & Plan Assessment & Plan (1) Schizophreniform disorder: Status: Acute Code(s): F20.81 - Schizophreniform disorder (2) Schizoaffective disorder, depressive type: Status: Suspected Code(s): F25.1 - Schizoaffective disorder, depressive type Plan HPI: Pt is a 24 yo male, with hx of depression, who presented to ED for SI with thoughts to hang himself in face of AH and paranoid delusions. Pt reports that he has been very sad but is feeling better now. Although reticent pt shares that he was stressed from his job. Patient has been working at his job for 1 year. About 3 months ago he quit explaining that bad things were going on at his job and he was scared that they would kill me...lot of drugs and guns... Patient clarifies he did not see guns/drugs but would hear people talking to him about it, specifically he would hear Cristopher Dockery (a co-worker) tell him such things while patient was in the cooler, working by himself. He clarifies he never actually saw Cristopher say these things, but could just hear him. Pt quit his job and for past 3 months has been staying at his mothers house feeling sad and afraid; while at home, he continued with AH and paranoid ideations. This past week, feeling very scared, he for first time ever had thoughts about killing himself (though no intent). He eventually told this to his mom brought him to the Hospital. At ED, they gave him Zyprexa and since, he no longer hears any voices or is worried about work, even feeling he could return. -uses cannabis daily; denies other drug/alcohol use -no hx of manic episodes -hx of depressive episodes that can last for weeks; not having a dad has been a source of emotional pain Formulation/clinical reasoning: Patient has a history of depression; seems that psychotic illness has revealed itself as over the past 3 months he has been having auditory hallucinations and paranoid delusions. Does not meet full criteria for schizophrenia since only 3 months but the consistency of symptoms strongly lean diagnosis in that direction. Technically meets criteria for schizophreniform; combined with depression likely schizoaffective disorder depressed type. Patient does not have insight that his past concerns are due to psychotic symptoms. However, he is grateful that Zyprexa medication, started in the emergency room, has resolved AH and his worries about work. Patient is amenable to continuing with treatment with Zyprexa. Patient still seems depressed, however this may be due to anxiety and missing his mother as patient is only 24 yo, hospitalized, [place] and with limited Finnish speaking skills. Hospital course: 10/19 Patient says that the AH of guns and drugs are gone however he is still hearing AH, saying piece of shit over and over; this was happening before 2 and now it has increased.? Patient agrees to increase Zyprexa since it has already been helpful.? Patient otherwise feels that his mood is better, good and he is feeling safe on the unit; of note affect is noticeably brighter and more calm -gag writer discussed diagnosis and patient seemed to understand that none of this is true but that his brain is playing tricks on him and that medication is the treatment 10/21: Increase Olanzapine to 15 mg bid Clonidine 0.1 mg bid Haldol 2 mg bid prn auditory perceptual alterations 10/22 Patient reports that he is continuing to have auditory hallucinations. He keeps hearing Dario, fat Dario, Dario as a shit... And says that AH is more pronounced than before. Not so worried about guns and drugs at the where house. Patient's mother also came to visit. Automotive Electrician Helper discussed with both of them diagnosis and treatment. Mother asked about medications and both agreed for patient to switch to risperidone given that Zyprexa has not seemed all that effective; mother also asked about whether not natural remedies would be helpful however she seemed to accept writers explanation for antipsychotic treatment for psychotic illness. Both agreed with patient staying on the unit longer to try risperidone; however later on, talking in [place] Island[place], patient's mother was overheard telling her son that he does not have a psychotic disorder, that this will get better, that there will be natural treatments... Also, although patient agreed to stay, he kept asking his mother in [place] if he was going home with her even after she told him no. Intellectual disability? -patient's mom did say that some family relatives had psychotic illness but that perhaps it was due to an environmental flu and resolved on its own -will continue to try and treat patient to see if symptoms resolve. Otherwise patient has remained in good behavioral and impulse control; says no SI at all which has remained fully resolved since admission. 10/23 pt initially said all AH is gone; however once gag writer explained that he'll be able to discharge this , regardless of AH...he recounted and said he is still having AH, saying negative things about him; he says it is perhaps a little less than before. His mood however is good and he says he is feeling calmer which staff has noticed; patient going to groups as well and asked to play the guitar. Discussed medications and patient agrees to increase risperidone -patient reports no SI at all and that his mood is in fact better. Automotive Electrician Helper agrees that patient is not in imminent risk for harm to self or others but would benefit from seeing if a medication could help reduce experience of AH; patient agrees and is willing to stay on the unit a few days longer for this purpose. 10/24 Patient reports that he is doing okay however AH remains saying that he is a piece of shit and has not decreased with Risperdal. Agrees to try Haldol. Either way patient wants to discharge tomorrow regardless of whether or not symptoms are reduced. Denies any SI at all and just wants to get to seeing his mother. -reasoning for changing medications quickly is that patient will discharge soon and these changes are an effort to find a medication that can perhaps mitigate his psychotic symptoms. The most up-to-date research indicates that antipsychotics can in fact reduce actual psychotic symptoms to a small degree even within the 1st day of treatment (which then predicts further efficacy of that medication). Impression Patient remains accepting treatment, but regardless of symptoms, Patient is determined to discharge. Automotive Electrician Helper agrees that patient is not in imminent risk for harm to self or others; he has not been suicidal since even before this admission and has remained in good behavioral and impulse control throughout his time in the unit. Regardless of AH, He has been practicing coping skills, listening to music, going to groups and playing guitar; he has been appropriate with peers and staff. Medications seem to have had some effect as delusional ideations seems to have resolved and only AH remains. AH is certainly bothersome for him and he has been accepting treatment throughout his time in the unit. And hopefully Haldol will prove effective and patient and his mother will know what medication to ask for should patient again seek out treatment in the future. Currently however both patient and mother are skeptical of treatment in general. And while he outwardly verbalizes that AH is not real, that what the voices say is not true and that this experience is just his mind playing tricks on him... It seems he and his mother privately remain wary about medication and psychiatric diagnosis. Thus, it is not surprising he is asking for discharge rather than wanting to stay until symptoms resolve. As wasr mentioned earlier patient is not in imminent risk for harm herself or others; he is returning to live with his mother who is supportive and his request for discharge will be honored. Plan: CV Q 15 minute checks Start Haldol DC Risperdal; has not been effective (though very limited trial) DC Zyprexa Gather collateral; patient gave permission to call his mother Patient educated on: diagnosis and medication risk/benefits Informed Consent: understands, does not understand and further education needed Reason for continued inpatient stay Substantial Risk for: stable for discharge Time Spent With Patient Time: Total time managing care of this patient today ____ minutes.
[2024-10-24] MEDS: HaloperidoL 5 MG TABLET 7.5 MG PO (13:51)
[2024-10-24] MEDS: traZODone HCL 50 MG TABLET PO (20:40)
[2024-10-24] MEDS: HaloperidoL 5 MG TABLET 10 MG PO (20:42)
[2024-10-25 08:17] VITALS: BP 140/66; PULSE 78; TEMP 36.5; O2SAT 98
[2024-10-25] MEDS: cloNIDine HCL 0.1 MG TABLET PO (08:28)
[2024-10-25] MEDS: HaloperidoL 5 MG TABLET 10 MG PO (08:28)
--- NOTE | 2024-10-25 09:36 | PM.PSYDC ---
DS: Providers Provider Date of Service: 10/25/24 Date of admission: 10/17/24 11:57 Date of discharge: 10/25/24 Primary care physician: None Physician Attending physician on admission: Ravi Cornell Consults: 10/17/24 12:32 Consult to Hospitalist Routine Comment: Consulting Provider: [facility] Reason For Exam: admission physical Attending physician on discharge: Ravi Cornell DS: Diagnosis Discharge Diagnosis (1) Schizophreniform disorder: Status: Acute (2) Schizoaffective disorder, depressive type: Status: Suspected Mental Status Exam Mental Status Exam Narrative: Pt is alert and oriented; behavior is cooperative, friendly and calm; patient is not in distress; dressed in casual attire, obese with unkempt hair, marginal hygiene; mood is described as good and affect congruent, a little brighter and more calm; eye contact appropriate; Speech is normal rate, volume and prosody and not pressured; no psychomotor agitation/retardation present; thought process is concrete, goal directed; Thought content is on dealing with AH and discharge; denies paranoid delusional thinking and none expressed; denies any SI/HI. Continued AH Patients insight and judgment impaired but improved since admission and adequate. DS: Summary Hospital Course Hospital Course: HPI: Pt is a 24 yo male, with hx of depression, who presented to ED for SI with thoughts to hang himself in face of AH and paranoid delusions. Pt reports that he has been very sad but is feeling better now. Although reticent pt shares that he was stressed from his job. Patient has been working at his job for 1 year. About 3 months ago he quit explaining that bad things were going on at his job and he was scared that they would kill me...lot of drugs and guns... Patient clarifies he did not see guns/drugs but would hear people talking to him about it, specifically he would hear Cristopher Dockery (a co-worker) tell him such things while patient was in the cooler, working by himself. He clarifies he never actually saw Cristopher say these things, but could just hear him. Pt quit his job and for past 3 months has been staying at his mothers house feeling sad and afraid; while at home, he continued with AH and paranoid ideations. This past week, feeling very scared, he for first time ever had thoughts about killing himself (though no intent). He eventually told this to his mom brought him to the Hospital. At ED, they gave him Zyprexa and since, he no longer hears any voices or is worried about work, even feeling he could return. -uses cannabis daily; denies other drug/alcohol use -no hx of manic episodes -hx of depressive episodes that can last for weeks; not having a dad has been a source of emotional pain Formulation/clinical reasoning: Patient has a history of depression; seems that psychotic illness has revealed itself as over the past 3 months he has been having auditory hallucinations and paranoid delusions. Does not meet full criteria for schizophrenia since only 3 months but the consistency of symptoms strongly lean diagnosis in that direction. Technically meets criteria for schizophreniform; combined with depression likely schizoaffective disorder depressed type. Patient does not have insight that his past concerns are due to psychotic symptoms. However, he is grateful that Zyprexa medication, started in the emergency room, has resolved AH and his worries about work. Patient is amenable to continuing with treatment with Zyprexa. Patient still seems depressed, however this may be due to anxiety and missing his mother as patient is only 24 yo, hospitalized, [place] and with limited German speaking skills. Hospital course: 10/19 Patient says that the AH of guns and drugs are gone however he is still hearing AH, saying piece of shit over and over; this was happening before 2 and now it has increased.? Patient agrees to increase Zyprexa since it has already been helpful.? Patient otherwise feels that his mood is better, good and he is feeling safe on the unit; of note affect is noticeably brighter and more calm -medical underwriter discussed diagnosis and patient seemed to understand that none of this is true but that his brain is playing tricks on him and that medication is the treatment 10/21: Increase Olanzapine to 15 mg bid Clonidine 0.1 mg bid Haldol 2 mg bid prn auditory perceptual alterations 10/22 Patient reports that he is continuing to have auditory hallucinations. He keeps hearing Dario, fat Dario, Dario as a shit... And says that AH is more pronounced than before. Not so worried about guns and drugs at the where house. Patient's mother also came to visit. Construction Materials Tester discussed with both of them diagnosis and treatment. Mother asked about medications and both agreed for patient to switch to risperidone given that Zyprexa has not seemed all that effective; mother also asked about whether not natural remedies would be helpful however she seemed to accept writers explanation for antipsychotic treatment for psychotic illness. Both agreed with patient staying on the unit longer to try risperidone; however later on, talking in Turkish, patient's mother was overheard telling her son that he does not have a psychotic disorder, that this will get better, that there will be natural treatments... Also, although patient agreed to stay, he kept asking his mother in Turkish if he was going home with her even after she told him no. Intellectual disability? -patient's mom did say that some family relatives had psychotic illness but that perhaps it was due to an environmental flu and resolved on its own -will continue to try and treat patient to see if symptoms resolve. Otherwise patient has remained in good behavioral and impulse control; says no SI at all which has remained fully resolved since admission. 10/23 pt initially said all AH is gone; however once medical underwriter explained that he'll be able to discharge this , regardless of AH...he recounted and said he is still having AH, saying negative things about him; he says it is perhaps a little less than before. His mood however is good and he says he is feeling calmer which staff has noticed; patient going to groups as well and asked to play the guitar. Discussed medications and patient agrees to increase risperidone -patient reports no SI at all and that his mood is in fact better. Construction Materials Tester agrees that patient is not in imminent risk for harm to self or others but would benefit from seeing if a medication could help reduce experience of AH; patient agrees and is willing to stay on the unit a few days longer for this purpose. 10/24 Patient reports that he is doing okay however AH remains saying that he is a piece of shit and has not decreased with Risperdal. Agrees to try Haldol. Either way patient wants to discharge tomorrow regardless of whether or not symptoms are reduced. Denies any SI at all and just wants to get to seeing his mother. -reasoning for changing medications quickly is that patient will discharge soon and these changes are an effort to find a medication that can perhaps mitigate his psychotic symptoms. The most up-to-date research indicates that antipsychotics can in fact reduce actual psychotic symptoms to a small degree even within the 1st day of treatment (which then predicts further efficacy of that medication). Impression Patient remains accepting treatment, but regardless of symptoms, Patient is determined to discharge. Outwardly patient verbalizes understanding that AH is not real, that what the voices say is not true and that this experience is just his mind playing tricks on him... It seems he and his mother privately remain wary about medication and psychiatric diagnosis. Thus, it is not surprising he is asking for discharge rather than wanting to stay until symptoms resolve. That said, Construction Materials Tester agrees that patient is not in imminent risk for harm to self or others; he has not been suicidal since even before this admission and has remained in good behavioral and impulse control throughout his time in the unit; also has no history at all of self-harm. Regardless of AH, He has been practicing coping skills, listening to music, going to groups and playing guitar; he has been appropriate with peers and staff. Medications seem to have had some effect as delusional ideations seems to have resolved and only AH remains. AH is certainly bothersome for him and he has been accepting treatment throughout his time in the unit. Initially Haldol did seem to reduce AH which patient reported to nursing on 2 different shifts; hopefully this medication will continue to prove effective. On day of discharge, Construction Materials Tester discussed this with patient and his mother, including that it is possible Haldol will become increasingly effective with continued use. Both agreed to continue taking it and asked about pharmacy and cost. Despite their skepticism of treatment in general, it is hopeful that Haldol's initial will be enough to convince patient to continue with this medication. Construction Materials Tester also discussed hypertension and clonidine. As mentioned mentioned earlier patient is not in imminent risk for harm herself or others; he is returning to live with his mother who is supportive and his request for discharge honored. Medication: Started Haldol 10 mg b.i.d. Started clonidine 0.1 mg b.i.d. for hypertension/anxiety Time spent discussing smoking cessation with patient: 3 to 10 minutes Status at Discharge Functional status at discharge: independent ambulation Overall status at discharge: patient is progressing back to baseline Time Spent with Patient Time attestation: Total time managing care of this patient today _40___ minutes. Time spent: Greater than 30 minutes Specific discharge activities: Met with patient; discussed with team; charting; prescriptions Discharge Plan Discharge Anticipated Discharge Date/Time: 10/25/24 15:31 Patient Disposition: Home, Self-Care Discharge Diagnosis: Schizophreniform (likely to become schizophrenia/schizoaffective disorder) Referrals: Physician,None [Primary Care Provider] - 1 Week Discharge Medications: New clonidine HCl 0.1 mg Tablet 0.1 mg PO BID 30 Days Qty: 60 0RF Protocol: Hold for SBP< HOLD for SBP < : 90 haloperidol 10 mg tablet 10 mg PO BID 30 Days Qty: 60 0RF Discharge Orders: Discharge Order (Routine); Ordered 10/25/24 Ordered By: Ravi Cornell Diet: Regular diet Activity on Discharge: As tolerated Stand Alone Forms: Patient Portal Discharge page, Community Support Print Language: Turkish Care Plan Goals: Maintain mood and safe behaviors Take medications as prescribed Practice coping skills Continue with outpatient providers and reach out to them as needed Health Concerns: Mood stability and behaviors Elevated Blood Pressure Plan of Treatment: Follow up with your PCP, psychiatric provider and other outpatient providers regarding above concerns Take medications as prescribed Assessment: Risk assessment at time of discharge:? Patient was interviewed prior to discharge and found to be fully oriented and without any SI or HI. Patient has improved insight and judgment. Patient is not in imminent risk of harm to self or others and has a safety plan that includes presenting to the closest ER or calling 911 if feeling unsafe.? Patient has been observed closely by nursing and unit staff throughout admission; patient has not engaged in any behaviors that suggest dangerousness to self or others and has demonstrated appropriate behaviors and impulse control Patient Instructions: Schizophrenia (GEN) Discharge Date/Time: 10/25/24 14:28
== END 2024-10-25 14:28 | disposition home or self-care (01) | DRG 750 ==
PROVIDERS: Admitting Provider Psychiatry & Neurology Psychiatry; Visit Provider Psychiatry & Neurology Psychiatry
DX: F20.81 Schizophreniform disorder (principal); R45.851 Suicidal ideations; Z23 Encounter for immunization; Z87.891 Personal history of nicotine dependence; Z79.899 Other long term (current) drug therapy
CPT/HCPCS: 36415; 80053; 80061; 83036; 90656

== ENCOUNTER → 2024-10-17 11:57 | Outpatient (BNV) | payer MEDICAID, SELFPAY | PROVIDERS: Admitting Provider Psychiatry & Neurology Psychiatry; Visit Provider Student in an Organized Health Care Education/Training Program | DX: Z00.8 Encounter for other general examination (principal) | CPT/HCPCS: 99222 ==

== ENCOUNTER → 2024-10-17 11:57 | Outpatient (BNV) | payer MEDICAID, SELFPAY | PROVIDERS: Admitting Provider Psychiatry & Neurology Psychiatry; Visit Provider Psychiatry & Neurology Psychiatry | DX: F25.1 Schizoaffective disorder, depressive type (principal) | CPT/HCPCS: 99222; 99231; 99232 ==

== ENCOUNTER 2024-11-12 12:02 | Emergency (ER) | payer MEDICAID, OTHER, SELFPAY ==
[2024-11-12 12:37] VITALS: BP 145/83; PULSE 86; RESP 19; TEMP 36.6; O2SAT 98; BMI 43.8
--- NOTE | 2024-11-12 12:42 | ED_ITS ---
HPI - Psych General Chief Complaint: Psychiatric Symptoms Stated Complaint: Not Feeling Well Time Seen by Provider: 11/12/24 13:21 Source: patient, family, old records reviewed and medical record assistant Mode of arrival: ambulatory Limitations: no limitations History of Present Illness ED Provider: EFE ROMANO Narrative: 24 yo male with PMH of schizoaffective disorder who just left inpatient at [facility] and had some med changes but he and mom are not sure. They just note his voices are worse and he is not okay and needs help. No SI/HI MD complaint: anxiety and hallucinations Onset (ago): day(s) (5) Duration: getting worse History of same: Yes Relieving factors: none Exacerbating factors: medication Context: other Associated psychiatric symptoms: depression and auditory hallucinations Associated symptoms: denies other symptoms Treatments prior to arrival: none Related Data Home Medications ?Medication ?Instructions ?Recorded ?Confirmed mirtazapine 15 mg tablet 15 mg PO BEDTIME 11/12/24 11/12/24 propranolol 20 mg tablet 20 mg PO TID 11/12/24 11/12/24 Previous Rx's ?Medication ?Instructions ?Recorded clonidine HCl 0.1 mg tablet 0.1 mg PO BID 30 days #60 tabs 10/25/24 haloperidol 10 mg tablet 10 mg PO BID 30 days #60 tabs 10/25/24 Allergies Allergy/AdvReac Type Severity Reaction Status Date / Time No Known Allergies Allergy Verified 11/12/24 12:41 Review of Systems 2 Review of Systems: Constitutional : No Fever, No Chills ENT/Mouth : No Ear Pain, No Nasal Congestion, No sore throat Eyes: No Eye Pain, No Swelling, No Redness Cardiovascular : No Chest Pain, No SOB Respiratory : No Cough, No Sputum, No Dyspnea Gastrointestinal : No Nausea, No Vomiting, No Diarrhea, No Hematochezia, No Melena Genitourinary : No Dysuria, No Urinary Frequency, No Hematuria Musculoskeletal : No Myalgias Skin : No Skin Lesions, No rash Neuro : No Weakness, No Numbness, No Paresthesias, No Dizziness, No Headache Psych : positive Anxiety, positive Depression, no SI/HI, pos AH All other systems reviewed and are negative PMFSH Past Medical History Attestation statement: The following information was validated with the patient. Source: old records reviewed Medical History Medical clearance for psychiatric admission Schizoaffective disorder, depressive type Social History Social History Household Members: Family Housing: Apartment Do you presently have visiting nurse or other home services: No Patient Tobacco Use Status: Former Tobacco user Tobacco use type: Cigarette Cigarette Packs Per Day: 0.3 Cigarettes Per Day: 6.0 Years Smoked: 1 year Second Hand Smoke Exposure: No Substance Use Type: Marijuana Advance Directives: No Advance Directives Information Provided: Yes Do you have a plan to hurt others: No Plan service: No Sexual orientation: Unable to collect Physical Exam 2 Vital Signs: Vital Signs: Last Vital Signs Temp 98.0 F 11/12/24 13:33 Pulse 88 11/12/24 13:33 Resp 16 11/12/24 13:33 BP 147/97 H 11/12/24 13:33 Pulse Ox 96 11/12/24 13:33 O2 Del Method Room Air 11/12/24 13:33 BMI result Body Mass Index 43.8 Appearance: Alert. Oriented X3. No acute distress. Eyes: Pupils equal, round and reactive to light. ENT: Pharynx normal. Neck: Normal inspection. Neck supple. CVS: Normal heart rate and rhythm. Pulses normal. Respiratory: No respiratory distress. Breath sounds normal. Abdomen: Soft and nontender. Skin: Skin warm and dry. Normal skin color. Normal skin turgor. Extremities: No lower extremity edema. No calf ttp Neuro: Oriented X 3. No motor deficit. No sensory deficit. CN2-12 intact Course Course Course Narrative: This is an RME: Additional HPI, ROS, PE not included below will be deferred to primary provider. RME assessment and note performed by: Alisha Blanco PA-C This is a 24-year-old Moroccan-speaking male, with a history of schizoaffective disorder, who presents emergency department with auditory hallucinations. Patient reports that he was just discharged from [facility] on , he has not slept, he was feeling anxious, in his hearing voices. Denies any SI or HI. Plan: Labs, UA Medications Administered Discontinued Medications Generic Name Dose Route Start Last Admin Trade Name Freq PRN Reason Stop Dose Admin Lorazepam 2 mg 11/12/24 13:23 11/12/24 13:29 Lorazepam 1 Mg Tablet PO 11/12/24 13:24 2 mg ONCE ONE Administration Olanzapine 5 mg 11/12/24 13:23 11/12/24 13:29 Olanzapine 5 Mg Tablet PO 11/12/24 13:24 5 mg ONCE ONE Administration Medical Decision Making Medical Decision Making [facility] Narrative: 24 yo male with PMH of schizoaffective disorder here with c/o hearing voices and not feeling well asking for psych evaluation. At this time labs and CARE team consult Differential Diagnosis Differential Diagnoses: The differential diagnosis associated with the presentation includes schizoaffective disorder Admission/Observation Consideration of admission/observation: Escalation of care including admission/observation considered physician observation started at 2pm pending CARE team cleared by CARE team he has no SI/HI has good outpatient follow up Consult Healthcare Provider Management of the patient was discussed with: Behavioral Health Provider Lab Data [facility] Lab Attestation statement: I reviewed the patient's lab results. 11/12/24 14:00 11/12/24 14:00 Labs: Lab Results 11/12/24 Range/Units 14:00 WBC 13.9 H (4.8-10.8) X10*3/uL RBC 5.68 (4.60-5.80) X10*6/uL Hgb 17.5 (14.0-18.0) g/dl Hct 50.2 (42.0-52.0) % MCV 88.4 (80.0-98.0) fL MCH 30.8 (27.0-33.0) pg MCHC 34.9 (31.0-36.0) g/dl RDW 12.7 (11.0-16.0) % Plt Count 274 (160-400) X10*3/uL MPV 10.5 (9.4-12.4) fL Immature Gran % (Auto) 0.4 (0.0-0.4) % Neut % (Auto) 69.7 (45-73) % Lymph % (Auto) 21.8 (20-40) % Butts % (Auto) 7.3 (2-11) % Eos % (Auto) 0.4 (0-4) % Baso % (Auto) 0.4 (0-2) % Lymph # (Auto) 3.0 (1.2-4.9) X10*3/uL Butts # (Auto) 1.0 (0.1-1.2) X10*3/uL Eos # (Auto) 0.1 (0.0-0.4) X10*3/uL Baso # (Auto) 0.1 (0.0-0.2) X10*3/uL Abs Immat Gran (auto) 0.05 H (0.00-0.03) X10*3/uL Absolute Neuts (auto) 9.7 H (2.0-8.3) x10*3/uL Absolute Nucleated RBC 0.000 (0.0-0.012) X10*3/uL Nucleated RBC % (auto) 0.0 (0.0-0.2) /100WBC Sodium 141 (135-145) mmol/L Potassium 4.1 (3.3-5.1) mmol/L Chloride 107 (96-108) mmol/L Carbon Dioxide 23 (22-29) mmol/L Anion Gap 15 (12-20) BUN 11 (9-16) mg/dL Creatinine 0.72 (0.5-1.4) mg/dL Estim Creat Clear Calc 205.9 Estimated GFR > 60 Random Glucose 106 (60-115) mg/dL Calcium 9.8 (8.4-10.2) mg/dL Total Bilirubin 0.7 (0.0-1.0) mg/dL AST 24 (5-37) U/L ALT 32 (0-40) U/L Alkaline Phosphatase 86 (39-117) U/L Total Protein 8.4 H (6.5-8.0) g/dL Albumin 4.7 (3.5-5.0) g/dL Urine Color Dark Yellow Urine Appearance Clear Urine pH 5.5 (5.0-9.0) Ur Specific [place] >= 1.030 H (1.005-1.025) Urine Protein 30 (1+) H (Neg-Trace) mg/dL Urine Glucose (UA) Negative (Negative) mg/dL Urine Ketones Negative (Negative) mg/dL Urine Blood Trace H (Negative) Urine Nitrite Negative (Negative) Ur Leukocyte Esterase Negative (Negative) Urine RBC 3-5 H (0-2) /HPF Urine WBC 0-5 (0-5) /HPF Ur Squamous Epith Cells 0-2 (0-2) /HPF Urine Bacteria None Seen (None Seen) Hyaline Casts 0-2 (0-2) /LPF Salicylates < 5.0 L (15-30) mg/dL Urine Opiates Screen Not Detected (Not Detect) Ur Buprenorphine Scrn Not Detected (Not Detect) ng/mL Ur Oxycodone Screen Not Detected (Not Detect) ng/mL Urine Methadone Screen Not Detected (Not Detect) ng/mL Urine Fentanyl Screen Not Detected (Not Detect) Acetaminophen < 3 (<30) mcg/mL Ur Barbiturates Screen Not Detected (Not Detect) Ur Phencyclidine Scrn Not Detected (Not Detect) Ur Amphetamines Screen Not Detected (Not Detect) U Benzodiazepines Scrn POSITIVE H (Not Detect) Urine Cocaine Screen Not Detected (Not Detect) U Marijuana (THC) Screen POSITIVE H (Not Detect) Ethyl Alcohol < 10 mg/dL Independent Historian Clinical information obtained from an independent historian. History obtained from or confirmed by: Parent External Record Review External record reviewed: Inpatient record and Outpatient record Discharge Plan Discharge Clinical Impression: Schizophreniform disorder Patient Disposition: Home, Self-Care Instructions: Schizophrenia (ED) Additional Instructions: follow up with your outpatient mental health providers return for any thoughts of self harm or harm to others Prescriptions: No Action clonidine HCl 0.1 mg Tablet 0.1 mg PO BID 30 Days Qty: 60 0RF Protocol: Hold for SBP< HOLD for SBP < : 90 haloperidol 10 mg tablet 10 mg PO BID 30 Days Qty: 60 0RF mirtazapine 15 mg tablet 15 mg PO BEDTIME propranolol 20 mg tablet 20 mg PO TID Interventions: [place]-Suicide Risk Severity Scale Last Done: 11/12/24 13:04 Print Language: Tajik
[2024-11-12 13:04] VITALS: RESP 14
--- NOTE | 2024-11-12 13:24 | PC.NURSE ---
patient ambulating around BH pod, alert and oriented x4, no apparent distress noted. Mom provided with d/c instructions
[2024-11-12] MEDS: LORazepam 1 MG TABLET 2 MG PO (13:29)
[2024-11-12] MEDS: OLANZapine 5 MG TABLET PO (13:29)
--- NOTE | 2024-11-12 13:30 | PC.NURSE ---
Pt presents to the pod, appears anxious, tapping his foot repeatedly, non-verbal, unwilling to participate in conversation with RN in urdu or paraguayan. Patient does not appear to be responding to internal stimuli at this time. patient initially refused to claim approver but when security told him his mom is waiting, he eagerly got up and changed with security present in the bathroom. Patient ambulated with steady gait to 1, mom is now sitting at bedside. patient remains anxious, medications administered per MAR without issue, patient remains non-verbal at this time
[2024-11-12 13:33] VITALS: BP 147/97; PULSE 88; RESP 16; TEMP 36.7; O2SAT 96
--- NOTE | 2024-11-12 13:36 | PC.NURSE ---
RE: Med rec This RN completed med rec via medical record history, patient not responding to this RN so we are unable to verify when last dose was
[2024-11-12 14:08] LABS: MANUAL DIFF FLAG NO
[2024-11-12 14:10] LABS: Appearance Urine Clear; Color Urine Dark Yellow; Glucose Urine UA Negative (Negative); Leukocyte Esterase Urine Negative (Negative); Nitrite Urine Negative (Negative); PH 5.5 (5.0-9.0); Specific Gravity - Urine >= 1.030 (1.005-1.025); UMIC TRIGGER UACC YES; Urine Blood Trace (Negative); Urine Ketones Negative (Negative); Urine Protein 30 (1+) mg/dL (Neg-Trace)
[2024-11-12 14:13] LABS: Basophils Absolute Auto 0.1 X10*3/uL (0.0-0.2); Basophils Percent Auto 0.4 % (0-2); Eosinophils Absolute Auto 0.1 X10*3/uL (0.0-0.4); Eosinophils Percent Auto 0.4 % (0-4); Hematocrit 50.2 % (42.0-52.0); Hemoglobin 17.5 g/dl (14.0-18.0); Imm Gran Abs Auto 0.05 X10*3/uL (0.00-0.03); Imm Gran Pct Auto 0.4 % (0.0-0.4); Lymphocytes Percent Auto 21.8 % (20-40); Mean Corpuscular HGB Conc 34.9 g/dl (31.0-36.0); Mean Corpuscular Hemoglobin 30.8 pg (27.0-33.0); Mean Corpuscular Volume 88.4 fL (80.0-98.0); Mean Platelet Volume 10.5 fL (9.4-12.4); Monocytes Percent Auto 7.3 % (2-11); Neutrophils Absolute Auto 9.7 x10*3/uL (2.0-8.3); Neutrophils Percent Auto 69.7 % (45-73); Platelet Count 274 X10*3/uL (160-400); Red Blood Count 5.68 X10*6/uL (4.60-5.80); Red Cell Distribution Width 12.7 % (11.0-16.0); White Blood Count 13.9 X10*3/uL (4.8-10.8)
[2024-11-12 14:17] LABS: Bacteria Urine None Seen (None Seen); Hyaline Casts Urine 0-2 /LPF (0-2); Squamous Epithelial Cell Urine 0-2 /HPF (0-2); WBC Urine 0-5 /HPF (0-5)
[2024-11-12 14:24] LABS: Amphetamine Screen Urine Not Detected (Not Detect); Barbiturates, Urine Not Detected (Not Detect); Benzodiazepines Screen Urine POSITIVE (Not Detect); Buprenorphine Scr Not Detected (Not Detect); Cannabinoid Screen Urine POSITIVE (Not Detect); Cocaine Screen Urine Not Detected (Not Detect); Fentanyl, urine Not Detected (Not Detect); Methadone Screen, Urine Not Detected (Not Detect); Opiate Screen Urine Not Detected (Not Detect); Oxycodone Screen Urine Not Detected (Not Detect); Phencyclidine Screen Urine Not Detected (Not Detect)
[2024-11-12 14:28] LABS: Acetaminophen LAB < 3 mcg/mL (<30); Alanine Aminotransferase 32 U/L (0-40); Albumin Level 4.7 g/dL (3.5-5.0); Alkaline Phosphatase 86 U/L (39-117); Anion Gap 15 (12-20); Aspartate Amino Transferase 24 U/L (5-37); Bilirubin Total 0.7 mg/dL (0.0-1.0); Blood Urea Nitrogen 11 mg/dL (9-16); Calcium 9.8 mg/dL (8.4-10.2); Carbon Dioxide 23 mmol/L (22-29); Chloride 107 mmol/L (96-108); Creatinine Clr Calc Pharmacy 205.9; Estimated Glomerular Filt Rate > 60; Ethanol < 10 mg/dL; Glucose Random 106 mg/dL (60-115); Potassium 4.1 mmol/L (3.3-5.1); Salicylate < 5.0 mg/dL (15-30); Sodium 141 mmol/L (135-145); Total Protein 8.4 g/dL (6.5-8.0)
--- OUTSIDE RECORDS SUMMARY | 2024-11-12 15:42 | XMS_ITS | Encounter Summary ---
Author Organization [employer] Address [address] [place] [address] Care Team Providers Care Business Planning Analyst Name Role Phone Physician, No Pcp Primary Care Provider Unavaila ble Reason for Visit * Reason Comments Anxiety Anxiety depression t hinks bp is high denies si/hi has been here before for similar symptoms Encounter Details Date Type Department Care Team (Late st Contact Info) Description 10/27/2024 9:50 PM EST - 10/27/2024 11:58 PM EST Emergency [facility] Emergency [address] [place] [address] Anxiety (Primary Dx) Discharge Disposition: Home or Self Care Social History Tobacco Use Types Packs/Day Years Used Date Smoking Tobacco: Never Smokeless Tobacco: Never Alcohol Use Standard Drinks/Week Comments Never 0 (1 standard drink = 0.6 oz pur e alcohol) Sex and Gender Information Value Date Recorded Sex Assigned at Male 10/09/2024 3:51 PM EST Legal Sex Male 10:39 AM EST Gender Identity Male 10/09/2024 3:51 PM EST Sexual Orientation Straight 10/09/2024 3: 51 PM EST documented as of this encounter Last Filed Vital Signs Vital Sign Reading Time Taken Comments Blood Pressure 130/98 10/27/2024 11:27 PM EST Pulse 100 10/27/2024 11:27 PM EST Temperature 36.9 ??C (98.4 ??F) 10/27/2024 11:[address] Respiratory Rate 17 10/27/2024 11:27 PM EST Oxygen Saturation 98% 10/27/2024 11:27 PM EST Inhaled Oxygen Concentration - - Weight 130 kg (286 lb 9.6 oz) 10/27/2024 9:20 PM EST Height 167.6 cm (5' 6 ) 10/27/2024 9:22 PM EST Body Mass Index 46.26 10/27/2024 9:20 PM EST documented in this encounter Functional Status * Are you deaf or do you have serious difficulty hearing? Answer Date of Assessment Author No 10/27/2024 10:23 PM Annamaria Talavera RN * Are you blind or do you have serious difficulty seeing, even when wearing glasses? Answer Date of Assessment Author No 10/27/2024 10:23 PM Annamaria Talavera RN * Do you have serious difficulty walking or climbing stairs? Answer Date of Assessment Author No 10/27/2024 10:23 PM Annamaria Talavera RN * Do you have serious difficulty dressing or bathing? Answer Date of Assessment Author No 10/27/2024 10:23 PM Annamaria Talavera RN * Because of a physical, mental, or emotional condition, do you have serious difficulty doing errandsalone such as visiting the doctor? Answer Date of Assessment Author No 10/27/2024 10:23 PM Annamaria Talavera RN documented as of this encounter Mental Status * Because of a physical, mental, or emotional condition, do you have serious difficulty concentrating, remembering, or making decisions? (5 years old or older) Answer Entry Date Author No 10/27/2024 10:23 PM Annamaria Talavera RN documented in this encounter Medications at Time of Discharge diphenhydrAMINE (BENADRYL) 25 mg tablet Take 1 capsule by mouth every 6 hours as needed for anxiety 24 tablet 10/27/2024 11/26/2024 documented as of this encounter Ordered Prescriptions Prescription Sig Dispense Quantity Refills Last Filled Start Date End Date diphenhydrAMINE (BENADRYL) 25 mg tablet Take 1 capsule by mouth every 6 hours as needed for anxiety 24 tablet 10/27/2024 documented in this encounter Discharge Disposition Disposition Code Departure Means Destination Comment s Home or Self Care documented in this encounter Progress Notes * Mary Moreno RN - 10/27/2024 9:25 PM EST Pt was d[place] [facility] [place] * Mary Moreno RN - 10/27/2024 9:13 PM EST All information obtained via proof machine operator [id number] Pt was seen at [facility] [place] concerns recently but feeling more anxiety and depression. Denies si/hi. Pt reports auditory hallucinations which pt reports is not new. Pt unable to remember what the voices say. * LISANDRA Miranda - 10/27/2024 9:05 PM EST Emergency Medicine Note Patient Name: Dario Prater Initial Evaluation: 10/27/2024 : 2000 Patient's PCP: No Pcp Physician Emergency Physician: LISANDRA Miranda History of Present Illness Chief Complaint: Chief Complaint Patient presents with Anxiety Anxiety depression thinks bp is high denies si/hi has been here before for similar symptoms HPI: Patient well-appearing. Denies any suicidal or homicidal ideations. States he was recently at [facility] he has been depressed and anxious. He had anxiety earlier today it is almost resolved. Denies any chest pain or respiratory distress. Patient was placed on clonidine and Haldol. He has been compliant with his medication. Will give him a number for his mom to call for a referral for follow-up. Thus with him low threshold to return to the emergency department if the had any questions or concerns about his physical or mental health. ROS: I have performed a ROS with the pertinent positives and negatives documented in the history ofpresent illness. Previous History Past Medical History: Diagnosis Date No known health problems per patient History reviewed. No pertinent surgical history. Social History Tobacco Use Smoking status: Never Smokeless tobacco: Never Substance Use Topics Alcohol use: Never Drug use: Yes Types: Marijuana/Cannabis No family history on file. has No Known Allergies. No current facility-administered medications on file prior to encounter. No current outpatient medications on file prior to encounter. Physical Exam ED Triage Vitals [10/27/24 2120] Temp Heart Rate Resp BP 36.8 ??C (98.2 ??F) 98 19 (!) 152/101 SpO2 Temp Source Heart Rate Source Patient Position 98 % Oral -- -- BP Location FiO2 (%) Right arm -- Physical Exam Vitals and nursing note reviewed. Constitutional: Appearance: Normal appearance. HENT: Head: Normocephalic. Eyes: Extraocular Movements: Extraocular movements intact. Cardiovascular: Comments: Symmetrical thorax Pulmonary: Effort: Pulmonary effort is normal. Musculoskeletal: General: Normal range of motion. Cervical back: Normal range of motion. Skin: General: Skin is warm. Capillary Refill: Capillary refill takes less than 2 seconds. Neurological: General: No focal deficit present. Mental Status: He is alert and oriented to person, place, and time. Psychiatric: Mood and Affect: Mood normal. Behavior: Behavior normal. Results Labs Reviewed - No data to display Abnormal Labs Reviewed - No data to display No orders to display I have discussed the incidental/abnormal imaging and/or lab abnormalities with the patient and haveinstructed them the need for further evaluation and workup with their primary care doctor. I have provided the patient with a paper copy of the abnormality. The laboratory results, imaging results and other diagnostic exam results were reviewed in the EMR. EKG Interpretation Critical Care Time None ? Differential Diagnosis Suicidal ideation Auditory hallucinations Anxiety Medication reaction Medical Decision Making Patient well-appearing. Denies any suicidal or homicidal ideations. States he was recently at [facility] he has been depressed and anxious. He had anxiety earlier today it is almost resolved. Denies any chest pain or respiratory distress. Patient was placed on clonidine and Haldol. He has been compliant with his medication. Will give him a number for his mom to call for a referral for follow-up. Thus with him low threshold to return to the emergency department if the had any questions or concerns about his physical or mental health. Medications diphenhydrAMINE (BENADRYL) capsule 50 mg (50 mg oral Given 10/27/242323) ED Course as of 10/27/242347 Sat Oct 27, 20242347 Referral number given for patient to go to walk-in [address] [place] [address] for crisis or to call. Discussed with family low threshold to return to the emergency department if needed [RH] ED Course User Index [RH] LISANDRA Miranda Clinical Impressions as of 10/27/24 2348 Anxiety Amount and/or Complexity of Data Reviewed External Data Reviewed: Encounters reviewed in Chart Review. Details: Labs: ordered. Decision-making details documented in ED Course. Radiology: ordered. Decision-making details documented in ED Course. ECG/medicine tests: ordered. Decision-making details documented in ED Course. Procedures Procedures Diagnosis 1. Anxiety Disposition Discharge ED Prescriptions Medication Sig Dispense Start Date End Date Auth. Provider diphenhydrAMINE (BENADRYL) 25 mg tablet Take 1 capsule by mouth every 6 hours as needed for [id number] tablet 10/27/2024 11/26/2024 LISANDRA Miranda Physician Attestation LISANDRA Miranda 10/27/24 2246 LISANDRA Miranda 10/27/24 2321 LISANDRA Miranda 10/27/24 2322 LISANDRA Miranda 10/27/24 2348 Cosigned by Dario Aviles DO at 10/28/2024 11:00 AM EST documented in this encounter Plan of Treatment Not on file documented as of this encounter Visit Diagnoses Diagnosis Anxiety- Primary Anxiety state, unspecified documented in this encounter Administered Medications Inactive Administered Medications - up to 3 most recent administrations Medication Order MAR Action Action Date Dose Rate Site diphenhydrAMINE (BENADRYL) capsule 50 mg 50 mg, oral, Once, On 10/27/24 at 2320, For 1 dose Given 10/27/2024 11:24 PM EST 50 mg documented in this encounter Active and Recently Administered Medications Times are shown in EST. Scheduled Medication Order 10/25/2024 10/26/2024 10/27/2024 diphenhydrAMINE (BENADRYL) capsule 50 mg (COMPLETED) 50 mg, oral, Once, On 10/27/24 at 2320, For 1 dose 2324 (Given - Provid er: Annamaria Griffin RN) documented in this encounter Orders Medications Ordered That Jaime ht Not Have Been Administered Count Last Ordered Date First Ordered Date diphenhydrAMINE (BENADRYL) capsule 50 mg 1 10/27/2024 documented in this encounter Care Teams Business Planning Analyst Relationship Specialty Start Date End Date Physician, No Pcp PCP - General 10/09/24 documented as of this encounter
--- OUTSIDE RECORDS SUMMARY | 2024-11-12 15:42 | XMS_ITS | Encounter Summary ---
Author Organization [employer] Address [address] [place] [address] Care Team Providers Care Screw Supervisor Name Role Phone Physician, No Pcp Primary Care Provider Unavaila ble Reason for Visit * Reason Comments Psychiatric Evaluation SI with plan to h ang himself Encounter Details Date Type Department Care Team (Late st Contact Info) Description 10/09/2024 11:17 AM EST - 10/17/2024 11:39 AM EST Emergency [facility] Emergency [address] [place] [phone] James Moses MD [address] [place] [id number] Brady Lee MD [address] [place] [address] [id number] Veronica Muir DO [address] [place] [phone] Vivienne Tucker MD [address] [place] [phone] Blake Castillo MD [address] [id number] Shayne Soler DO [address] [place] [id number] Davis Mooney MD [address] [place] [id number] Declan Hawkins MD [address] [place] [address] Marcellus Carpio MD [address] [place] [address] Joseph Horne DO [address] [place] [address] Psychosis, unspecified psychosis type (CMS/HCC) (Primary Dx) Discharge Disposition: Psychiatric Hospital Social History Tobacco Use Types Packs/Day Years [...] Sign Reading Time Taken Comments Blood Pressure 121/82 10/17/2024 5:52 AM EST Pulse 87 10/17/2024 5:52 AM EST Temperature 36.6 ??C (97.9 ??F) 10/17/2024 5:52 AM ES T Respiratory Rate 16 10/17/2024 5:52 AM EST Oxygen Saturation 100% 10/17/2024 5:52 AM EST Inhaled Oxygen Concentration - - Weight 130 kg (286 lb) 10/09/2024 11:02 AM EST Height 170 cm (5' 6.93 ) 10/09/2024 11:02 AM EST Body Mass Index 44.89 10/09/2024 11:02 AM EST documented in this encounter Functional Status * Are you deaf or do you have serious difficulty hearing? Answer Date of Assessment Author No 10/12/2024 3:50 AM EST Nehal Faye RN * Are you blind or do you have serious difficulty seeing, even when wearing glasses? Answer Date of Assessment Author No 10/12/2024 3:50 AM EST Nehal Faye RN * Do you have serious difficulty walking or climbing stairs? Answer Date of Assessment Author No 10/12/2024 3:50 AM Nehal Roberson RN * Do you have serious difficulty dressing or bathing? Answer Date of Assessment Author No 10/12/2024 3:50 AM Nehal Roberson RN documented as of this encounter Mental Status * Because of a physical, mental, or emotional condition, do you have serious difficulty concentrating, remembering, or making decisions? (5 years old or older) Answer Entry Date Author No 10/12/2024 3:50 AM Nehal Roberson RN documented in this encounter Discharge Disposition Disposition Code Departure Means Destination Comment [facility] documented in this encounter Progress Notes * Carina Oconnor - 10/17/2024 10:28 AM EST Patient accepted to [facility], by Dr Ace, for today 10/17/24. ETA will be determined during nurse to nurse * Declan Hawkins MD - 10/17/2024 7:48 AM EST ED Course as of 10/17/24 1058 Tue Oct 09, 2024 1311 CBC and differential(!) Blood work reveals leukocytosis, no anemia, electrolyte derangement or renal insufficiency. LFTs are normal. Thus far blood work is reassuring. Awaiting results of urinalysis. [TC] 1424 Urinalysis shows positive for cannabinoids but otherwise negative. Patient medically clear forcrisis evaluation. [TC] 1658 Patient has been seen by the crisis team. She felt this to be new onset psychosis which will need inpatient psychiatric management. Patient is a bed search at this time. [TC] Rosemary Oct 11, 2024 0923 qWrite for her Haldol for 10/12 one-time dose [JL] 0926 No issues o/n. Pt comfortable [JL] 1307 Patient is mildly tachycardic no history of EtOH withdrawal. Afebrile patient is basically asymptomatic he has been here for several days no calf pain no cough no shortness of breath obtain a D-dimer and chest x-ray and viral panel. Reassess [JL] 1431 Urinalysis with reflex microscopic [JL] 1505 Still tachycardic on reevaluation to 122. Despite a negative D-dimer is no sign of withdrawal.Will give IV fluids obtain blood cultures and lactic acid improved with fluids or positive lactate will admit for unexplained tachycardia rule out bacteremia [JL] 1522 Tachycardic and although he does have a mild leukocytosis I see no other signs of infection. Deferred antibiotics to be does have an elevated lactate we will start empiric antibiotics assess after IV fluids. Signed out to the oncoming physician [JL] Fri Oct 12, 2024 0839 Received the patient in signout will recheck lab work and EKG see if there is any improvement.Patient appears calm no signs of withdrawal or rigors or sepsis. [JL] 0938 Patient is mildly tachycardic to 118 however nurse states that the patient is very anxious. Likely all this tachycardia is due to anxiety although he peers to mask it very well when I am in the room with him [JL] [facility] Oct 13, 2024 1515 I, Dr. Wyatt Hawkins, have received signout for this patient from Dr. Mooney at 1500 hrs. patient excepted [facility] pending repeat EKG. Repeat EKG is done to be faxed to the intake line now. [MG] 2221 Have not heard back from [facility]. Reschedule crisis but no response. I, Dr. Wyatt Hawkins, signed this patient out pending further workup and evaluation. History and physical reviewed with oncoming team. At this point the pending portions of the work-up are: Follow-up [facility] placement [MG] [place] Oct 14, 2024 1533 I, Dr. Wyatt Hawkins, have received signout for this patient from Dr Muir at 1500 hrs. The patient is currently pending inpatient psychiatric bed search. No issues during my shift. Anticipate signout to overnight team at 2300 hrs.. [MG] 1548 No acute changes during my shift currently pending psychiatric bed search at this time. Patient will be signed out to oncoming provider. [TC-2] [facility] Oct 15, 2024 0722 I spoke with nurse taking care of the patient, patient has been psychotic, has been evaluated by psychiatry but no medications ordered except for Valium 10 mg every 8 hours, I will order an antipsychotic this patient has been wandering the halls and has to be redirected and has been difficult to place. [KV] 1818 Signout no current issues responded well to his Zyprexa [JL] e Oct 16, 2024 0919 Received patient end of shift transfer care. No acute issues. No issues overnight. [] 0919 Expect placement at [facility] [] 1620 Received patient in signout patient is doing better on scheduled medications. Awaiting placement [JL] TueOct 17, 2024 0746 I, Dr. Wyatt Hawkins, have received signout for this patient from Dr. Carpio at 0700 hrs. The patient is currently pending inpatient psychiatric bed search. Patient excepted to [facility] by Dr. Cornell.Anticipate sign out to Dr. Soler at 1500 hrs. [MG] ED Course User Index [JL] Blake Castillo MD [KV] Brady Lee MD [MC] Joseph Horne DO [MG] Declan Hawkins MD [TC] James Moses MD [TC-2] Veronica Muir DO Clinical Impressions as of 10/17/24 1058 Psychosis, unspecified psychosis type (CMS/HCC) Send to Specialty Department 1. Psychosis, unspecified psychosis type (CMS/HCC) Procedures Dariochasity Prater * Jo-Ann Mora NP - 10/16/2024 5:02 PM EST Psychiatry Progress note Interview with assist of video flatwork feeder Scott #[id number] Patient seen by me, nursing report reviewed with the interdisciplinary team, medications and chart history reviewed. Subjective: (reported issues and events over the last 24 hours) I am better Active Problems: No Active Problems: There are no active problems currently on the Problem List. Please update the Problem List and refresh. Objective: Seclusion/Restraint in last 24 hours: No Blood pressure (!) 143/60, pulse 99, temperature 37.1 ??C (98.8 ??F), temperature source Oral, resp. rate 16, height 1.7 m (66.93 ), weight 130 kg (286 lb), SpO2 99%. Appearance/Grooming: eye contact fair, grooming moderately kept, and well developed, well nourished Musculoskeletal: Normal Orientation: Appropriate to age, Person, and Place Mood: better Affect: mood-congruent Memory: Recent: fair Remote: fair Attention Span: fair Concentration: fair Language Usage: Appropriate to age Speech: Coherent and Regular rate, rhythm, volume and articulation Fund. Of Knowledge: Fair Thought Processes: Coherent Thought Associations: Logical Thought Abnormalities or Psychosis: Not present Judgement: Appropriate to age and Good Insight: fair Sleep: better Appetite: I am hungry Energy: no change Lab Results: Results for orders placed or performed during the hospital encounter of 10/09/24 ECG 12 lead Collection Time: 10/09/24 11:08 AM Result Value Ref Range Ventricular Rate ECG 128 BPM Atrial Rate 128 BPM P-R Interval 132 ms QRS Duration 80 ms Q-T Interval 300 ms QTc 438 ms P Wave [place] 56 degrees R [place] 58 degrees T [place] 24 degrees ECG Interpretation Sinus tachycardia Cannot rule out Inferior infarct , age undetermined Abnormal ECG No previous ECGs available Confirmed by CATHERINE GARZON ([id number]) on 10/09/2024 9:39:21 PM Comprehensive metabolic panel Collection Time: 10/09/24 11:10 AM Result Value Ref Range Sodium 136 133 - 145 mmol/L Potassium 3.7 3.5 - 5.5 mmol/L Chloride 104 96 - 110 mmol/L CO2 25 21 - 32 mmol/L Anion Gap 7 3 - 11 Glucose 137 (H) 70 - 100 mg/dL BUN 13 5 - 25 mg/dL Creatinine 0.85 0.70 - 1.30 mg/dL eGFR 126 >=60 mL/min/1.73m2 BUN/Creatinine Ratio 15.3 Calcium 9.4 8.5 - 10.5 mg/dL AST (SGOT) 31 10 - 42 unit/L ALT (SGPT) 47 10 - 60 unit/L Alkaline Phosphatase 91 42 - 121 unit/L Total Protein 8.3 (H) 6.0 - 8.0 g/dL Albumin 4.6 3.2 - 5.0 g/dL Total Bilirubin 0.9 0.0 - 1.4 mg/dL Ethanol Collection Time: 10/09/24 11:10 AM Result Value Ref Range Ethanol Level <3 0 - 10 mg/dL Acetaminophen level Collection Time: 10/09/24 11:10 AM Result Value Ref Range Acetaminophen Level <2.0 (L) 10.0 - 30.0 mcg/mL Salicylate level Collection Time: 10/09/24 11:10 AM Result Value Ref Range Salicylate Level <1.7 (L) 2.0 - 29.0 mg/dL CBC auto differential Collection Time: 10/09/24 11:10 AM Result Value Ref Range WBC 16.4 (H) 4.8 - 10.8 K/mcL RBC 5.60 (H) 4.50 - 5.50 M/mcL Hemoglobin 17.1 13.5 - 17.5 g/dL Hematocrit 50.4 42.0 - 54.0 % MCV 89.7 79.0 - 98.0 FL MCH 30.4 27.0 - 32.0 pcg MCHC 33.9 32.0 - 37.0 g/dL RDW 12.5 11.0 - 15.0 % Platelets 282 130 - 400 K/mcL MPV 10.9 7.0 - 11.0 FL NRBC 0.0 <1.0 % NRBC Absolute 0.00 <0.10 K/mcL Neutrophils Relative 72.2 % Lymphocytes Relative 20.0 % Monocytes Relative 6.7 % Eosinophils Relative 0.2 % Basophils Relative 0.4 % Immature Granulocytes Relative 0.5 % Neutrophils Absolute 11.82 (H) 1.50 - 7.00 K/mcL Lymphocytes Absolute 3.28 1.00 - 5.00 K/mcL Monocytes Absolute 1.10 (H) 0.20 - 1.00 K/mcL Eosinophils Absolute 0.03 0.00 - 0.50 K/mcL Basophils Absolute 0.07 0.00 - 0.20 K/mcL Immature Granulocytes Absolute 0.08 (H) 0.00 - 0.03 K/mcL Thyroid stimulating hormone (TSH) Collection Time: 10/09/24 11:10 AM Result Value Ref Range TSH 1.22 0.40 - 4.00 mcIU/mL Drug abuse screen 8a panel, urine Collection Time: 10/09/24 1:14 PM Result Value Ref Range Amphetamine Screen, Ur Negative Negative Barbiturate Screen, Ur Negative Negative Benzodiazepine Screen, Ur Negative Negative Cocaine Screen, Ur Negative Negative Opiate Screen, Ur Negative Negative Cannabinoid (THC) Screen, Ur Positive (A) Negative Oxycodone Screen, Ur Negative Negative Fentanyl, Ur Negative Negative Buprenorphine screen, urine Collection Time: 10/09/24 1:14 PM Result Value Ref Range Buprenorphine Screen Urine Negative Negative Phencyclidine, urine Collection Time: 10/09/24 1:14 PM Result Value Ref Range PCP Scrn, Ur Negative Negative Methadone, urine Collection Time: 10/09/24 1:14 PM Result Value Ref Range Methadone Screen, Urine Negative Negative Urinalysis with reflex microscopic Collection Time: 10/09/24 3:42 PM Result Value Ref Range Specific [place] Urine 1.003 1.003 - 1.030 pH, Urine 7.0 5.0 - 8.0 pH Leukocytes, Urine Negative Negative Nitrite, Urine Negative Negative Protein, Urine Negative <=Trace mg/dL Glucose, Urine Negative Negative mg/dL Ketones, Urine Negative Negative mg/dL Urobilinogen, Urine 0.2 0.2 - 1.0 mg/dL Bilirubin, Urine Negative Negative Blood, Urine Negative Negative Rapid [id number], molecular Collection Time: 10/10/24 6:32 AM Specimen: Nares; Swab Result Value Ref Range SARS-COV-2 Screen Not Detected Not Detected Respiratory virus panel molecular study Collection Time: 10/11/24 1:23 PM Specimen: Nares; Swab Result Value Ref Range Adenovirus Detection by PCR Not Detected Not Detected Influenza A PCR Not Detected Not Detected Influenza B PCR Not Detected Not Detected Coronavirus 229E Not Detected Not Detected Coronavirus HKU1 Not Detected Not Detected Coronavirus OC43 Not Detected Not Detected Coronavirus NL63 Not Detected Not Detected Parainfluenza Virus 1 Not Detected Not Detected Parainfluenza Virus 2 Not Detected Not Detected Parainfluenza Virus 3 Not Detected Not Detected Parainfluenza Virus 4 Not Detected Not Detected RSV PCR Not Detected Not Detected Human Metapneumovirus A and B Not Detected Not Detected Rhinovirus/Enterovirus Not Detected Not Detected Bordetella pertussis Not Detected Not Detected Bordetella parapertussis Not Detected Not Detected Mycoplasma pneumo by PCR Not Detected Not Detected Chlamydia pneumoniae Not Detected Not Detected SARS COV-2 Not Detected Not Detected D-dimer, quantitative Collection Time: 10/11/24 1:23 PM Result Value Ref Range D-Dimer, Quant (D-DU) <150 <=230 ng/mL DDU Blood Culture, Peripheral Draw #1 Collection Time: 10/11/24 3:47 PM Specimen: Blood, Venous Result Value Ref Range Culture, Blood No growth at 5 days Lactate, with reflex Collection Time: 10/11/24 3:47 PM Result Value Ref Range LACTIC ACID 2.3 (H) 0.4 - 2.0 mmol/L Blood Culture, Peripheral Draw #2 Collection Time: 10/11/24 3:54 PM Specimen: Blood, Venous Result Value Ref Range Culture, Blood No growth at 5 days Lactate, with reflex Collection Time: 10/11/24 5:46 PM Result Value Ref Range LACTIC ACID 2.1 (H) 0.4 - 2.0 mmol/L Sedimentation rate, automated Collection Time: 10/12/24 8:45 AM Result Value Ref Range Sed Rate 10 0 - 15 mm/hr C-reactive protein Collection Time: 10/12/24 8:45 AM Result Value Ref Range C-Reactive Protein <0.29 <=0.50 mg/dL CBC auto differential Collection Time: 10/12/24 8:45 AM Result Value Ref Range WBC 14.5 (H) 4.8 - 10.8 K/mcL RBC 5.10 4.50 - 5.50 M/mcL Hemoglobin 15.5 13.5 - 17.5 g/dL Hematocrit 46.2 42.0 - 54.0 % MCV 90.8 79.0 - 98.0 FL MCH 30.5 27.0 - 32.0 pcg MCHC 33.5 32.0 - 37.0 g/dL RDW 12.9 11.0 - 15.0 % Platelets 220 130 - 400 K/mcL MPV 10.5 7.0 - 11.0 FL NRBC 0.0 <1.0 % NRBC Absolute 0.00 <0.10 K/mcL Neutrophils Relative 54.8 % Lymphocytes Relative 34.6 % Monocytes Relative 8.5 % Eosinophils Relative 1.2 % Basophils Relative 0.6 % Immature Granulocytes Relative 0.3 % Neutrophils Absolute 7.92 (H) 1.50 - 7.00 K/mcL Lymphocytes Absolute 5.00 1.00 - 5.00 K/mcL Monocytes Absolute 1.23 (H) 0.20 - 1.00 K/mcL Eosinophils Absolute 0.18 0.00 - 0.50 K/mcL Basophils Absolute 0.08 0.00 - 0.20 K/mcL Immature Granulocytes Absolute 0.05 (H) 0.00 - 0.03 K/mcL Comprehensive metabolic panel Collection Time: 10/12/24 8:45 AM Result Value Ref Range Sodium 141 133 - 145 mmol/L Potassium 3.7 3.5 - 5.5 mmol/L Chloride 110 96 - 110 mmol/L CO2 28 21 - 32 mmol/L Anion Gap 3 3 - 11 Glucose 104 (H) 70 - 100 mg/dL BUN 12 5 - 25 mg/dL Creatinine 0.82 0.70 - 1.30 mg/dL eGFR 127 >=60 mL/min/1.73m2 BUN/Creatinine Ratio 14.6 Calcium 9.0 8.5 - 10.5 mg/dL AST (SGOT) 26 10 - 42 unit/L ALT (SGPT) 54 10 - 60 unit/L Alkaline Phosphatase 84 42 - 121 unit/L Total Protein 7.1 6.0 - 8.0 g/dL Albumin 3.9 3.2 - 5.0 g/dL Total Bilirubin 1.0 0.0 - 1.4 mg/dL ECG 12 lead Collection Time: 10/12/24 9:19 AM Result Value Ref Range Ventricular Rate ECG 118 BPM Atrial Rate 118 BPM P-R Interval 134 ms QRS Duration 90 ms Q-T Interval 324 ms QTc 454 ms P Wave [place] 39 degrees R [place] 61 degrees T [place] 30 degrees ECG Interpretation Sinus tachycardia Nonspecific T wave abnormality Abnormal ECG When compared with ECG of 09-OCT-2024 11:08, Nonspecific T wave abnormality now evident in Lateral leads Confirmed by CATHERINE GARZON ([id number]) on 10/12/2024 5:29:08 PM ECG 12 lead Collection Time: 10/13/24 7:47 PM Result Value Ref Range Ventricular Rate ECG 102 BPM Atrial Rate 102 BPM P-R Interval 124 ms QRS Duration 86 ms Q-T Interval 334 ms QTc 435 ms P Wave [place] 40 degrees R [place] 67 degrees T [place] 27 degrees ECG Interpretation Sinus tachycardia When compared with ECG of 12-OCT-2024 09:19, Nonspecific T wave abnormality no longer evident in Lateral leads Confirmed by FERNY DANGELO ([id number]) on 10/14/2024 12:43:54 AM Medications: Current Facility-Administered Medications Medication Dose Route Frequency Provider Last Rate Last Admin diazePAM (VALIUM) tablet 5 mg 5 mg oral BID PRN Jo-Ann Morgan, FOOD PHOTOGRAPHER 5 mg at 10/15/24 1709 OLANZapine (ZyPREXA) tablet 5 mg 5 mg oral BID Jo-Ann Morgan, FOOD PHOTOGRAPHER 5 mg at 10/16/24 0942 No current outpatient medications on file. Met with patient and mother with patient permission. Patient reports feeling better , denies voices , denies suicidal thoughts, reports improved sleepand good appetite. Reports I was doing too much weed I think Mother reports He looks good, not like he did before Diagnosis/Assessment/Plan: Psychosis, unspecified Suicidal ideation Patient with recent change in behavior, disorganized thoughts, poor sleep, suicidal ideation, responding to internal stimuli Medication Issues: No ADRs 1) Will continue olanzapine 5 mg po BID to assist with thought organization, anxiety/ agitation. Patient reports recent auditory hallucinations with reports of responding to internal stimuli 2) Will continue diazepam to 5 mg BID PRN for anxiety due to oversedation with most recent dosing. 3) Collaborate with team for inpatient psychiatric hospitalization for patient safety. Mood stabilization and medication management Jo-Ann Mora NP * Blake Castillo MD - 10/16/2024 4:20 PM EST ED Course as of 10/29/24 0708 e Oct 09, 2024 1311 CBC and differential(!) Blood work reveals leukocytosis, no anemia, electrolyte derangement or renal insufficiency. LFTs are normal. Thus far blood work is reassuring. Awaiting results of urinalysis. [TC] 1424 Urinalysis shows positive for cannabinoids but otherwise negative. Patient medically clear forcrisis evaluation. [TC] 1658 Patient has been seen by the crisis team. She felt this to be new onset psychosis which will need inpatient psychiatric management. Patient is a bed search at this time. [TC] Rosemary Oct 11, 2024 0923 qWrite for her Haldol for 10/12 one-time dose [JL] 0926 No issues o/n. Pt comfortable [JL] 1307 Patient is mildly tachycardic no history of EtOH withdrawal. Afebrile patient is basically asymptomatic he has been here for several days no calf pain no cough no shortness of breath obtain a D-dimer and chest x-ray and viral panel. Reassess [JL] 1431 Urinalysis with reflex microscopic [JL] 1505 Still tachycardic on reevaluation to 122. Despite a negative D-dimer is no sign of withdrawal.Will give IV fluids obtain blood cultures and lactic acid improved with fluids or positive lactate will admit for unexplained tachycardia rule out bacteremia [JL] 1522 Tachycardic and although he does have a mild leukocytosis I see no other signs of infection. Deferred antibiotics to be does have an elevated lactate we will start empiric antibiotics assess after IV fluids. Signed out to the oncoming physician [JL] Fri Oct 12, 2024 0839 Received the patient in signout will recheck lab work and EKG see if there is any improvement.Patient appears calm no signs of withdrawal or rigors or sepsis. [JL] 0938 Patient is mildly tachycardic to 118 however nurse states that the patient is very anxious. Likely all this tachycardia is due to anxiety although he peers to mask it very well when I am in the room with him [JL] Sat Oct 13, 2024 1515 I, Dr. Wyatt Hawkins, have received signout for this patient from Dr. Mooney at 1500 hrs. patient excepted [facility] pending repeat EKG. Repeat EKG is done to be faxed to the intake line now. [MG] 2221 Have not heard back from [facility]. Reschedule crisis but no response. I, Dr. Wyatt Hawkins, signed this patient out pending further workup and evaluation. History and physical reviewed with oncoming team. At this point the pending portions of the work-up are: Follow-up [facility] placement [MG] [place] Oct 14, 2024 1533 I, Dr. Wyatt Hawkins, have received signout for this patient from Dr Muir at 1500 hrs. The patient is currently pending inpatient psychiatric bed search. No issues during my shift. Anticipate signout to overnight team at 2300 hrs.. [MG] 1548 No acute changes during my shift currently pending psychiatric bed search at this time. Patient will be signed out to oncoming provider. [TC-2] Mon Oct 15, 2024 0722 I spoke with nurse taking care of the patient, patient has been psychotic, has been evaluated by psychiatry but no medications ordered except for Valium 10 mg every 8 hours, I will order an antipsychotic this patient has been wandering the halls and has to be redirected and has been difficult to place. [KV] 1818 Signout no current issues responded well to his Zyprexa [JL] Tue Oct 16, 2024 0919 Received patient end of shift transfer care. No acute issues. No issues overnight. [MC] 0919 Expect placement at [facility] [] 1620 Received patient in signout patient is doing better on scheduled medications. Awaiting placement [JL] TueOct 17, 2024 0746 I, Dr. Wyatt Hawkins, have received signout for this patient from Dr. Carpio at 0700 hrs. The patient is currently pending inpatient psychiatric bed search. Patient excepted to [facility] by Dr. Cornell.Anticipate sign out to Dr. Soler at 1500 hrs. [MG] ED Course User Index [JL] Blake Castillo MD [KV] Brady Lee MD [MC] Joseph Horne DO [MG] Declan Hawkins MD [TC] James Moses MD [TC-2] Veronica Muir, Clinical Impressions as of 10/29/24 0708 Psychosis, unspecified psychosis type (CMS/HCC) Send to Specialty Department 1. Psychosis, unspecified psychosis type (CMS/HCC) Procedures * Saira Nagel RN - 10/16/2024 12:40 PM EST Pt frequently needed redirection to either chair in common area or his bed. Continues to try and wander towards exit or PO computer. Able to be redirected. * Joseph Horne DO - 10/16/2024 9:18 AM EST ED Course as of 10/17/24 1021 Tue Oct 09, 2024 1311 CBC and differential(!) Blood work reveals leukocytosis, no anemia, electrolyte derangement or renal insufficiency. LFTs are normal. Thus far blood work is reassuring. Awaiting results of urinalysis. [TC] 1424 Urinalysis shows positive for cannabinoids but otherwise negative. Patient medically clear forcrisis evaluation. [TC] 1658 Patient has been seen by the crisis team. She felt this to be new onset psychosis which will need inpatient psychiatric management. Patient is a bed search at this time. [TC] Rosemary Oct 11, 2024 0923 qWrite for her Haldol for 10/12 one-time dose [JL] 0926 No issues o/n. Pt comfortable [JL] 1307 Patient is mildly tachycardic no history of EtOH withdrawal. Afebrile patient is basically asymptomatic he has been here for several days no calf pain no cough no shortness of breath obtain a D-dimer and chest x-ray and viral panel. Reassess [JL] 1431 Urinalysis with reflex microscopic [JL] 1505 Still tachycardic on reevaluation to 122. Despite a negative D-dimer is no sign of withdrawal.Will give IV fluids obtain blood cultures and lactic acid improved with fluids or positive lactate will admit for unexplained tachycardia rule out bacteremia [JL] 1522 Tachycardic and although he does have a mild leukocytosis I see no other signs of infection. Deferred antibiotics to be does have an elevated lactate we will start empiric antibiotics assess after IV fluids. Signed out to the oncoming physician [JL] Fri Oct 12, 2024 0839 Received the patient in signout will recheck lab work and EKG see if there is any improvement.Patient appears calm no signs of withdrawal or rigors or sepsis. [JL] 0938 Patient is mildly tachycardic to 118 however nurse states that the patient is very anxious. Likely all this tachycardia is due to anxiety although he peers to mask it very well when I am in the room with him [JL] Sat Oct 13, 2024 1515 I, Dr. Wyatt Hawkins, have received signout for this patient from Dr. Mooney at 1500 hrs. patient excepted [facility] pending repeat EKG. Repeat EKG is done to be faxed to the intake line now. [MG] 2221 Have not heard back from [facility]. Reschedule crisis but no response. I, Dr. Wyatt Hawkins, signed this patient out pending further workup and evaluation. [facility]. At this point the pending portions of the work-up are: Follow-up [facility] placement [MG] Yolande Oct 14, 2024 1533 I, Dr. Wyatt Hawkins, have received signout for this patient from Dr Muir at 1500 hrs. The patient is currently pending inpatient psychiatric bed search. No issues during my shift. Anticipate signout to overnight team at 2300 hrs.. [MG] 1548 No acute changes during my shift currently pending psychiatric bed search at this time. Patient will be signed out to oncoming provider. [TC-2] TueOct 15, 2024 0722 I spoke with nurse taking care of the patient, patient has been psychotic, has been evaluated by psychiatry but no medications ordered except for Valium 10 mg every 8 hours, I will order an antipsychotic this patient has been wandering the halls and has to be redirected and has been difficult to place. [KV] 1818 Signout no current issues responded well to his Zyprexa [JL] TueOct 16, 2024 0919 Received patient end of shift transfer care. No acute issues. No issues overnight. [MC] 0919 Expect placement at [facility] [MC] 1620 Received patient in signout patient is doing better on scheduled medications. Awaiting placement [JL] TueOct 17, 2024 0746 I, Dr. Wyatt Hawkins, have received signout for this patient from Dr. Carpio at 0700 hrs. The patient is currently pending inpatient psychiatric bed search. Complaint. Anticipate sign out to Dr. Soler at 1500 hrs. [MG] ED Course User Index [JL] Blake Castillo MD [KV] Brady Lee MD [MC] Joseph Horne DO [MG] Declan Hawkins MD [TC] James Moses MD [TC-2] Veronica Muir DO Clinical Impressions as of 10/17/24 1021 Psychosis, unspecified psychosis type (CMS/HCC) Send to Specialty Department 1. Psychosis, unspecified psychosis type (CMS/HCC) Procedures * Blake Castillo MD - 10/15/2024 3:36 PM EST ED Course as of 10/29/24 0708 TueOct 09, 2024 1311 CBC and differential(!) Blood work reveals leukocytosis, no anemia, electrolyte derangement or renal insufficiency. LFTs are normal. Thus far blood work is reassuring. Awaiting results of urinalysis. [TC] 1424 Urinalysis shows positive for cannabinoids but otherwise negative. Patient medically clear forcrisis evaluation. [TC] 1658 Patient has been seen by the crisis team. She felt this to be new onset psychosis which will need inpatient psychiatric management. Patient is a bed search at this time. [TC] Rosemary Oct 11, 2024 0923 qWrite for her Haldol for 10/12 one-time dose [JL] 0926 No issues o/n. Pt comfortable [JL] 1307 Patient is mildly tachycardic no history of EtOH withdrawal. Afebrile patient is basically asymptomatic he has been here for several days no calf pain no cough no shortness of breath obtain a D-dimer and chest x-ray and viral panel. Reassess [JL] 1431 Urinalysis with reflex microscopic [JL] 1505 Still tachycardic on reevaluation to 122. Despite a negative D-dimer is no sign of withdrawal.Will give IV fluids obtain blood cultures and lactic acid improved with fluids or positive lactate will admit for unexplained tachycardia rule out bacteremia [JL] 1522 Tachycardic and although he does have a mild leukocytosis I see no other signs of infection. Deferred antibiotics to be does have an elevated lactate we will start empiric antibiotics assess after IV fluids. Signed out to the oncoming physician [JL] Fri Oct 12, 2024 0839 Received the patient in signout will recheck lab work and EKG see if there is any improvement.Patient appears calm no signs of withdrawal or rigors or sepsis. [JL] 0938 Patient is mildly tachycardic to 118 however nurse states that the patient is very anxious. Likely all this tachycardia is due to anxiety although he peers to mask it very well when I am in the room with him [JL] Sat Oct 13, 2024 1515 I, Dr. Wyatt Hawkins, have received signout for this patient from Dr. Mooney at 1500 hrs. patient excepted [facility] pending repeat EKG. Repeat EKG is done to be faxed to the intake line now. [MG] 2221 Have not heard back from [facility]. Reschedule crisis but no response. I, Dr. Wyatt Hawkins, signed this patient out pending further workup and evaluation. History and physical reviewed with oncoming team. At this point the pending portions of the work-up are: Follow-up [facility] placement [MG] [place] Oct 14, 2024 1533 I, Dr. Wyatt Hawkins, have received signout for this patient from Dr Muir at 1500 hrs. The patient is currently pending inpatient psychiatric bed search. No issues during my shift. Anticipate signout to overnight team at 2300 hrs.. [MG] 1548 No acute changes during my shift currently pending psychiatric bed search at this time. Patient will be signed out to oncoming provider. [TC-2] [facility] Oct 15, 2024 0722 I spoke with nurse taking care of the patient, patient has been psychotic, has been evaluated by psychiatry but no medications ordered except for Valium 10 mg every 8 hours, I will order an antipsychotic this patient has been wandering the halls and has to be redirected and has been difficult to place. [KV] 1818 Signout no current issues responded well to his Zyprexa [JL] e Oct 16, 2024 0919 Received patient end of shift transfer care. No acute issues. No issues overnight. [MC] 0919 Expect placement at [facility] [] 1620 Received patient in signout patient is doing better on scheduled medications. Awaiting placement [JL] [facility] Oct 17, 2024 0746 I, Dr. Wyatt Hawkins, have received signout for this patient from Dr. Carpio at 0700 hrs. The patient is currently pending inpatient psychiatric bed search. Patient excepted to [facility] by Dr. Cornell.Anticipate sign out to Dr. Soler at 1500 hrs. [MG] ED Course User Index [JL] Blake Castillo MD [KV] Brady Lee MD [MC] Joseph Horne, [MG] Declan Hawkins MD [TC] James Moses MD [TC-2] Veronica Muir, DO Clinical Impressions as of 10/29/24 0708 Psychosis, unspecified psychosis type (CMS/HCC) Send to Specialty Department 1. Psychosis, unspecified psychosis type (CMS/HCC) Procedures * Jo-Ann Mora NP - 10/15/2024 3:11 PM EST Psychiatry Progress note Interview with assist of video flatwork feeder Teto #[id number] Patient seen by me, nursing report reviewed with the interdisciplinary team, medications and chart history reviewed. Subjective: (reported issues and events over the last 24 hours) I miss my mother Active Problems: No Active Problems: There are no active problems currently on the Problem List. Please update the Problem List and refresh. Objective: Lying on bed in POD Seclusion/Restraint in last 24 hours: No Blood pressure 126/76, pulse 75, temperature 36.9 ??C (98.5 ??F), temperature source Oral, resp. rate 16, height 1.7 m (66.93 ), weight 130 kg (286 lb), SpO2 100%. Appearance/Grooming: eye contact fair, grooming moderately kept, and well developed, well nourishedShowered yesterday per staff Musculoskeletal: Normal Orientation: Appropriate to age, Person, and Place Mood: anxious and depressed Affect: sad, tearful Memory: Recent: reports unable to remember events leading to arrival in ED Remote: fair Attention Span: fair Concentration: poor Language Usage: Difficulties with initiation Speech: Paucity of language and Soft Fund. Of Knowledge: Fair Thought Processes: Impaired Thought Associations: Loose Thought Abnormalities or Psychosis: Not present and reports last voices were the day before yesterday Judgement: Questionable Insight: poor Sleep: received medications slept til midday Appetite: did not eat meals today Energy: decrease Lab Results: Results for orders placed or performed during the hospital encounter of 10/09/24 ECG 12 lead Collection Time: 10/09/24 11:08 AM Result Value Ref Range Ventricular Rate ECG 128 BPM Atrial Rate 128 BPM P-R Interval 132 ms QRS Duration 80 ms Q-T Interval 300 ms QTc 438 ms P Wave [place] 56 degrees R [place] 58 degrees T [place] 24 degrees ECG Interpretation Sinus tachycardia Cannot rule out Inferior infarct , age undetermined Abnormal ECG No previous ECGs available Confirmed by CATHERINE GARZON ([id number]) on 10/09/2024 9:39:21 PM Comprehensive metabolic panel Collection Time: 10/09/24 11:10 AM Result Value Ref Range Sodium 136 133 - 145 mmol/L Potassium 3.7 3.5 - 5.5 mmol/L Chloride 104 96 - 110 mmol/L CO2 25 21 - 32 mmol/L Anion Gap 7 3 - 11 Glucose 137 (H) 70 - 100 mg/dL BUN 13 5 - 25 mg/dL Creatinine 0.85 0.70 - 1.30 mg/dL eGFR 126 >=60 mL/min/1.73m2 BUN/Creatinine Ratio 15.3 Calcium 9.4 8.5 - 10.5 mg/dL AST (SGOT) 31 10 - 42 unit/L ALT (SGPT) 47 10 - 60 unit/L Alkaline Phosphatase 91 42 - 121 unit/L Total Protein 8.3 (H) 6.0 - 8.0 g/dL Albumin 4.6 3.2 - 5.0 g/dL Total Bilirubin 0.9 0.0 - 1.4 mg/dL Ethanol Collection Time: 10/09/24 11:10 AM Result Value Ref Range Ethanol Level <3 0 - 10 mg/dL Acetaminophen level Collection Time: 10/09/24 11:10 AM Result Value Ref Range Acetaminophen Level <2.0 (L) 10.0 - 30.0 mcg/mL Salicylate level Collection Time: 10/09/24 11:10 AM Result Value Ref Range Salicylate Level <1.7 (L) 2.0 - 29.0 mg/dL CBC auto differential Collection Time: 10/09/24 11:10 AM Result Value Ref Range WBC 16.4 (H) 4.8 - 10.8 K/mcL RBC 5.60 (H) 4.50 - 5.50 M/mcL Hemoglobin 17.1 13.5 - 17.5 g/dL Hematocrit 50.4 42.0 - 54.0 % MCV 89.7 79.0 - 98.0 FL MCH 30.4 27.0 - 32.0 pcg MCHC 33.9 32.0 - 37.0 g/dL RDW 12.5 11.0 - 15.0 % Platelets 282 130 - 400 K/mcL MPV 10.9 7.0 - 11.0 FL NRBC 0.0 <1.0 % NRBC Absolute 0.00 <0.10 K/mcL Neutrophils Relative 72.2 % Lymphocytes Relative 20.0 % Monocytes Relative 6.7 % Eosinophils Relative 0.2 % Basophils Relative 0.4 % Immature Granulocytes Relative 0.5 % Neutrophils Absolute 11.82 (H) 1.50 - 7.00 K/mcL Lymphocytes Absolute 3.28 1.00 - 5.00 K/mcL Monocytes Absolute 1.10 (H) 0.20 - 1.00 K/mcL Eosinophils Absolute 0.03 0.00 - 0.50 K/mcL Basophils Absolute 0.07 0.00 - 0.20 K/mcL Immature Granulocytes Absolute 0.08 (H) 0.00 - 0.03 K/mcL Thyroid stimulating hormone (TSH) Collection Time: 10/09/24 11:10 AM Result Value Ref Range TSH 1.22 0.40 - 4.00 mcIU/mL Drug abuse screen 8a panel, urine Collection Time: 10/09/24 1:14 PM Result Value Ref Range Amphetamine Screen, Ur Negative Negative Barbiturate Screen, Ur Negative Negative Benzodiazepine Screen, Ur Negative Negative Cocaine Screen, Ur Negative Negative Opiate Screen, Ur Negative Negative Cannabinoid (THC) Screen, Ur Positive (A) Negative Oxycodone Screen, Ur Negative Negative Fentanyl, Ur Negative Negative Buprenorphine screen, urine Collection Time: 10/09/24 1:14 PM Result Value Ref Range Buprenorphine Screen Urine Negative Negative Phencyclidine, urine Collection Time: 10/09/24 1:14 PM Result Value Ref Range PCP Scrn, Ur Negative Negative Methadone, urine Collection Time: 10/09/24 1:14 PM Result Value Ref Range Methadone Screen, Urine Negative Negative Urinalysis with reflex microscopic Collection Time: 10/09/24 3:42 PM Result Value Ref Range Specific [place] Urine 1.003 1.003 - 1.030 pH, Urine 7.0 5.0 - 8.0 pH Leukocytes, Urine Negative Negative Nitrite, Urine Negative Negative Protein, Urine Negative <=Trace mg/dL Glucose, Urine Negative Negative mg/dL Ketones, Urine Negative Negative mg/dL Urobilinogen, Urine 0.2 0.2 - 1.0 mg/dL Bilirubin, Urine Negative Negative Blood, Urine Negative Negative Rapid [id number], molecular Collection Time: 10/10/24 6:32 AM Specimen: Nares; Swab Result Value Ref Range SARS-COV-2 Screen Not Detected Not Detected Respiratory virus panel molecular study Collection Time: 10/11/24 1:23 PM Specimen: Nares; Swab Result Value Ref Range Adenovirus Detection by PCR Not Detected Not Detected Influenza A PCR Not Detected Not Detected Influenza B PCR Not Detected Not Detected Coronavirus 229E Not Detected Not Detected Coronavirus HKU1 Not Detected Not Detected Coronavirus OC43 Not Detected Not Detected Coronavirus NL63 Not Detected Not Detected Parainfluenza Virus 1 Not Detected Not Detected Parainfluenza Virus 2 Not Detected Not Detected Parainfluenza Virus 3 Not Detected Not Detected Parainfluenza Virus 4 Not Detected Not Detected RSV PCR Not Detected Not Detected Human Metapneumovirus A and B Not Detected Not Detected Rhinovirus/Enterovirus Not Detected Not Detected Bordetella pertussis Not Detected Not Detected Bordetella parapertussis Not Detected Not Detected Mycoplasma pneumo by PCR Not Detected Not Detected Chlamydia pneumoniae Not Detected Not Detected SARS COV-2 Not Detected Not Detected D-dimer, quantitative Collection Time: 10/11/24 1:23 PM Result Value Ref Range D-Dimer, Quant (D-DU) <150 <=230 ng/mL DDU Blood Culture, Peripheral Draw #1 Collection Time: 10/11/24 3:47 PM Specimen: Blood, Venous Result Value Ref Range Culture, Blood No growth at 2 days Lactate, with reflex Collection Time: 10/11/24 3:47 PM Result Value Ref Range LACTIC ACID 2.3 (H) 0.4 - 2.0 mmol/L Blood Culture, Peripheral Draw #2 Collection Time: 10/11/24 3:54 PM Specimen: Blood, Venous Result Value Ref Range Culture, Blood No growth at 2 days Lactate, with reflex Collection Time: 10/11/24 5:46 PM Result Value Ref Range LACTIC ACID 2.1 (H) 0.4 - 2.0 mmol/L Sedimentation rate, automated Collection Time: 10/12/24 8:45 AM Result Value Ref Range Sed Rate 10 0 - 15 mm/hr C-reactive protein Collection Time: 10/12/24 8:45 AM Result Value Ref Range C-Reactive Protein <0.29 <=0.50 mg/dL CBC auto differential Collection Time: 10/12/24 8:45 AM Result Value Ref Range WBC 14.5 (H) 4.8 - 10.8 K/mcL RBC 5.10 4.50 - 5.50 M/mcL Hemoglobin 15.5 13.5 - 17.5 g/dL Hematocrit 46.2 42.0 - 54.0 % MCV 90.8 79.0 - 98.0 FL MCH 30.5 27.0 - 32.0 pcg MCHC 33.5 32.0 - 37.0 g/dL RDW 12.9 11.0 - 15.0 % Platelets 220 130 - 400 K/mcL MPV 10.5 7.0 - 11.0 FL NRBC 0.0 <1.0 % NRBC Absolute 0.00 <0.10 K/mcL Neutrophils Relative 54.8 % Lymphocytes Relative 34.6 % Monocytes Relative 8.5 % Eosinophils Relative 1.2 % Basophils Relative 0.6 % Immature Granulocytes Relative 0.3 % Neutrophils Absolute 7.92 (H) 1.50 - 7.00 K/mcL Lymphocytes Absolute 5.00 1.00 - 5.00 K/mcL Monocytes Absolute 1.23 (H) 0.20 - 1.00 K/mcL Eosinophils Absolute 0.18 0.00 - 0.50 K/mcL Basophils Absolute 0.08 0.00 - 0.20 K/mcL Immature Granulocytes Absolute 0.05 (H) 0.00 - 0.03 K/mcL Comprehensive metabolic panel Collection Time: 10/12/24 8:45 AM Result Value Ref Range Sodium 141 133 - 145 mmol/L Potassium 3.7 3.5 - 5.5 mmol/L Chloride 110 96 - 110 mmol/L CO2 28 21 - 32 mmol/L Anion Gap 3 3 - 11 Glucose 104 (H) 70 - 100 mg/dL BUN 12 5 - 25 mg/dL Creatinine 0.82 0.70 - 1.30 mg/dL eGFR 127 >=60 mL/min/1.73m2 BUN/Creatinine Ratio 14.6 Calcium 9.0 8.5 - 10.5 mg/dL AST (SGOT) 26 10 - 42 unit/L ALT (SGPT) 54 10 - 60 unit/L Alkaline Phosphatase 84 42 - 121 unit/L Total Protein 7.1 6.0 - 8.0 g/dL Albumin 3.9 3.2 - 5.0 g/dL Total Bilirubin 1.0 0.0 - 1.4 mg/dL ECG 12 lead Collection Time: 10/12/24 9:19 AM Result Value Ref Range Ventricular Rate ECG 118 BPM Atrial Rate 118 BPM P-R Interval 134 ms QRS Duration 90 ms Q-T Interval 324 ms QTc 454 ms P Wave [place] 39 degrees R [place] 61 degrees T [place] 30 degrees ECG Interpretation Sinus tachycardia Nonspecific T wave abnormality Abnormal ECG When compared with ECG of 09-OCT-2024 11:08, Nonspecific T wave abnormality now evident in Lateral leads Confirmed by CATHERINE GARZON ([id number]) on 10/12/2024 5:29:08 PM ECG 12 lead Collection Time: 10/13/24 7:47 PM Result Value Ref Range Ventricular Rate ECG 102 BPM Atrial Rate 102 BPM P-R Interval 124 ms QRS Duration 86 ms Q-T Interval 334 ms QTc 435 ms P Wave [place] 40 degrees R [place] 67 degrees T [place] 27 degrees ECG Interpretation Sinus tachycardia When compared with ECG of 12-OCT-2024 09:19, Nonspecific T wave abnormality no longer evident in Lateral leads Confirmed by FERNY DANGELO ([id number]) on 10/14/2024 12:43:54 AM Medications: Current Facility-Administered Medications Medication Dose Route Frequency Provider Last Rate Last Admin diazePAM (VALIUM) tablet 5 mg 5 mg oral BID PRN Jo-Ann Mora NP OLANZapine (ZyPREXA) tablet 5 mg 5 mg oral BID Brady Lee MD 5 mg at 10/15/24 0843 No current outpatient medications on file. Diagnosis/Assessment/Plan: Psychosis, unspecified Suicidal ideation Patient with recent change in behavior, disorganized thoughts, poor sleep, suicidal ideation, responding to internal stimuli Medication Issues: No ADRs 1) Will continue olanzapine 5 mg po BID to assist with thought organization, anxiety/ agitation. Patient reports recent auditory hallucinations with reports of responding to internal stimuli 2) Will reduce diazepam to 5 mg BID PRN for anxiety due to oversedation with most recent dosing. 3) Collaborate with team for inpatient psychiatric hospitalization for patient safety. Mood stabilization and medication management Jo-Ann Mora NP * Declan Hawkins MD - 10/14/2024 3:35 PM EST ED Course as of 10/17/24 1058 Tue Oct 09, 2024 1311 CBC and differential(!) Blood work reveals leukocytosis, no anemia, electrolyte derangement or renal insufficiency. LFTs are normal. Thus far blood work is reassuring. Awaiting results of urinalysis. [TC] 1424 Urinalysis shows positive for cannabinoids but otherwise negative. Patient medically clear forcrisis evaluation. [TC] 9512 Patient has been seen by the crisis team. She felt this to be new onset psychosis which will need inpatient psychiatric management. Patient is a bed search at this time. [TC] Rosemary Oct 11, 2024 0923 qWrite for her Haldol for 10/12 one-time dose [JL] 0926 No issues o/n. Pt comfortable [JL] 1307 Patient is mildly tachycardic no history of EtOH withdrawal. Afebrile patient is basically asymptomatic he has been here for several days no calf pain no cough no shortness of breath obtain a D-dimer and chest x-ray and viral panel. Reassess [JL] 1431 Urinalysis with reflex microscopic [JL] 1505 Still tachycardic on reevaluation to 122. Despite a negative D-dimer is no sign of withdrawal.Will give IV fluids obtain blood cultures and lactic acid improved with fluids or positive lactate will admit for unexplained tachycardia rule out bacteremia [JL] 1522 Tachycardic and although he does have a mild leukocytosis I see no other signs of infection. Deferred antibiotics to be does have an elevated lactate we will start empiric antibiotics assess after IV fluids. Signed out to the oncoming physician [JL] Fri Oct 12, 2024 0839 Received the patient in signout will recheck lab work and EKG see if there is any improvement.Patient appears calm no signs of withdrawal or rigors or sepsis. [JL] 0938 Patient is mildly tachycardic to 118 however nurse states that the patient is very anxious. Likely all this tachycardia is due to anxiety although he peers to mask it very well when I am in the room with him [JL] Sat Oct 13, 2024 1515 I, Dr. Wyatt Hawkins, have received signout for this patient from Dr. Mooney at 1500 hrs. patient excepted [facility] pending repeat EKG. Repeat EKG is done to be faxed to the intake line now. [MG] 2221 Have not heard back from [facility]. Reschedule crisis but no response. I, Dr. Wyatt Hawkins, signed this patient out pending further workup and evaluation. [facility] and physical [facility]. At this point the pending portions of the work-up are: Follow-up [facility] placement [MG] Yolande Oct 14, 2024 1533 I, Dr. Wyatt Hawkins, have received signout for this patient from Dr Muir at 1500 hrs. The patient is currently pending inpatient psychiatric bed search. No issues during my shift. Anticipate signout to overnight team at 2300 hrs.. [MG] 1548 No acute changes during my shift currently pending psychiatric bed search at this time. Patient will be signed out to oncoming provider. [TC-2] TueOct 15, 2024 0722 I spoke with nurse taking care of the patient, patient has been psychotic, has been evaluated by psychiatry but no medications ordered except for Valium 10 mg every 8 hours, I will order an antipsychotic this patient has been wandering the halls and has to be redirected and has been difficult to place. [KV] 1818 Signout no current issues responded well to his Zyprexa [JL] TueOct 16, 2024 0919 Received patient end of shift transfer care. No acute issues. No issues overnight. [MC] 0919 Expect placement at [facility] [] 1620 Received patient in signout patient is doing better on scheduled medications. Awaiting placement [JL] TueOct 17, 2024 0746 I, Dr. Wyatt Hawkins, have received signout for this patient from Dr. Carpio at 0700 hrs. The patient is currently pending inpatient psychiatric bed search. Patient excepted to [facility] by Dr. Cornell.Anticipate sign out to Dr. Soler at 1500 hrs. [MG] ED Course User Index [JL] Blake Castillo MD [KV] Brady Lee MD [MC] Joseph Horne DO [MG] Declan Hawkins MD [TC] James Moses MD [TC-2] Veronica Muir DO Clinical Impressions as of 10/17/24 1058 Psychosis, unspecified psychosis type (CMS/HCC) Send to Specialty Department 1. Psychosis, unspecified psychosis type (CMS/HCC) Procedures Dario Prater * Veronica Muir DO - 10/14/2024 9:33 AM EST ED Course as of 10/14/24 1549 Tue Oct 09, 2024 1311 CBC and differential(!) Blood work reveals leukocytosis, no anemia, electrolyte derangement or renal insufficiency. LFTs are normal. Thus far blood work is reassuring. Awaiting results of urinalysis. [TC] 1424 Urinalysis shows positive for cannabinoids but otherwise negative. Patient medically clear forcrisis evaluation. [TC] 1658 Patient has been seen by the crisis team. She felt this to be new onset psychosis which will need inpatient psychiatric management. Patient is a bed search at this time. [TC] Rosemary Oct 11, 2024 0923 qWrite for her Haldol for 10/12 one-time dose [JL] 0926 No issues o/n. Pt comfortable [JL] 1307 Patient is mildly tachycardic no history of EtOH withdrawal. Afebrile patient is basically asymptomatic he has been here for several days no calf pain no cough no shortness of breath obtain a D-dimer and chest x-ray and viral panel. Reassess [JL] 1431 Urinalysis with reflex microscopic [JL] 1505 Still tachycardic on reevaluation to 122. Despite a negative D-dimer is no sign of withdrawal.Will give IV fluids obtain blood cultures and lactic acid improved with fluids or positive lactate will admit for unexplained tachycardia rule out bacteremia [JL] 1522 Tachycardic and although he does have a mild leukocytosis I see no other signs of infection. Deferred antibiotics to be does have an elevated lactate we will start empiric antibiotics assess after IV fluids. Signed out to the oncoming physician [JL] Fri Oct 12, 2024 0839 Received the patient in signout will recheck lab work and EKG see if there is any improvement.Patient appears calm no signs of withdrawal or rigors or sepsis. [JL] 0938 Patient is mildly tachycardic to 118 however nurse states that the patient is very anxious. Likely all this tachycardia is due to anxiety although he peers to mask it very well when I am in the room with him [JL] Sat Oct 13, 2024 1515 I, Dr. Wyatt Hawkins, have received signout for this patient from Dr. Mooney at 1500 hrs. patient excepted [facility] pending repeat EKG. Repeat EKG is done to be faxed to the intake line now. [MG] 2221 Have not heard back from [facility]. Reschedule crisis but no response. I, Dr. Wyatt Hawkins, signed this patient out pending further workup and evaluation. History and physical reviewed with oncoming team. At this point the pending portions of the work-up are: Follow-up [facility] placement [MG] Yolande Oct 14, 2024 1533 I, Dr. Wyatt Hawkins, have received signout for this patient from Dr Muir at 1500 hrs. The patient is currently pending inpatient psychiatric bed search. No issues during my shift. Anticipate signout to overnight team at 2300 hrs.. [MG] 1548 No acute changes during my shift currently pending psychiatric bed search at this time. Patient will be signed out to oncoming provider. [TC-2] ED Course User Index [JL] Blake Castillo MD [MG] Declan Hawkins MD [TC] James Moses MD [TC-2] Veronica Muir DO Clinical Impressions as of 10/14/24 1549 Psychosis, unspecified psychosis type (CMS/HCC) Send to Specialty Department 1. Psychosis, unspecified psychosis type (CMS/HCC) Procedures Dario Prater * Declan Hawkins MD - 10/13/2024 3:17 PM EST ED Course as of 10/17/24 1058 Tue Oct 09, 2024 1311 CBC and differential(!) Blood work reveals leukocytosis, no anemia, electrolyte derangement or renal insufficiency. LFTs are normal. Thus far blood work is reassuring. Awaiting results of urinalysis. [TC] 1424 Urinalysis shows positive for cannabinoids but otherwise negative. Patient medically clear forcrisis evaluation. [TC] 1658 Patient has been seen by the crisis team. She felt this to be new onset psychosis which will need inpatient psychiatric management. Patient is a bed search at this time. [TC] [facility] Oct 11, 2024 0923 qWrite for her Haldol for 10/12 one-time dose [JL] 0926 No issues o/n. Pt comfortable [JL] 1307 Patient is mildly tachycardic no history of EtOH withdrawal. Afebrile patient is basically asymptomatic he has been here for several days no calf pain no cough no shortness of breath obtain a D-dimer and chest x-ray and viral panel. Reassess [JL] 1431 Urinalysis with reflex microscopic [JL] 1505 Still tachycardic on reevaluation to 122. Despite a negative D-dimer is no sign of withdrawal.Will give IV fluids obtain blood cultures and lactic acid improved with fluids or positive lactate will admit for unexplained tachycardia rule out bacteremia [JL] 1522 Tachycardic and although he does have a mild leukocytosis I see no other signs of infection. Deferred antibiotics to be does have an elevated lactate we will start empiric antibiotics assess after IV fluids. Signed out to the oncoming physician [JL] Fri Oct 12, 2024 0839 Received the patient in signout will recheck lab work and EKG see if there is any improvement.Patient appears calm no signs of withdrawal or rigors or sepsis. [JL] 0938 Patient is mildly tachycardic to 118 however nurse states that the patient is very anxious. Likely all this tachycardia is due to anxiety although he peers to mask it very well when I am in the room with him [JL] Sat Oct 13, 2024 1515 I, Dr. Wyatt Hawkins, have received signout for this patient from Dr. Mooney at 1500 hrs. patient excepted [facility] pending repeat EKG. Repeat EKG is done to be faxed to the intake line now. [MG] 2221 Have not heard back from [facility]. Reschedule crisis but no response. I, Dr. Wyatt Hawkins, signed this patient out pending further workup and evaluation. History and physical reviewed with oncoming team. At this point the pending portions of the work-up are: Follow-up [facility] placement [MG] Sun Oct 14, 2024 1533 I, Dr. Wyatt Hawkins, have received signout for this patient from Dr Muir at 1500 hrs. The patient is currently pending inpatient psychiatric bed search. No issues during my shift. Anticipate signout to overnight team at 2300 hrs.. [MG] 1548 No acute changes during my shift currently pending psychiatric bed search at this time. [facility] [TC-2] Mon Oct 15, 2024 0722 I spoke with nurse taking care of the patient, patient has been psychotic, has been evaluated by psychiatry but no medications ordered except for Valium 10 mg every 8 hours, I will order an antipsychotic this patient has been wandering the halls and has to be redirected and has been difficult to place. [KV] 1818 Signout no current issues responded well to his Zyprexa [JL] e Oct 16, 2024 0919 Received patient end of shift transfer care. No acute issues. No issues overnight. [] 0919 Expect placement at [facility] [] 1620 Received patient in signout patient is doing better on scheduled medications. Awaiting placement [JL] TueOct 17, 2024 0746 I, Dr. Wyatt Hawkins, have received signout for this patient from Dr. Carpio at 0700 hrs. The patient is currently pending inpatient psychiatric bed search. Patient excepted to [facility] by Dr. Cornell.Anticipate sign out to Dr. Soler at 1500 hrs. [MG] ED Course User Index [JL] Blake Castillo MD [KV] Brady Lee MD [MC] Joseph Horne DO [MG] Declan Hawkins MD [TC] James Moses MD [TC-2] Veronica Muir DO Clinical Impressions as of 10/17/24 1058 Psychosis, unspecified psychosis type (CMS/HCC) Send to Specialty Department 1. Psychosis, unspecified psychosis type (CMS/HCC) Procedures Dario Prater * Farzaneh Lundberg RN - 10/12/2024 12:00 PM EST Patient continues to come out of room and walk towards exit doors. Pt appears very anxious, pacing in and out of room.Pt is tearful and slightly tremulous. Pt expresses that he is scared and confused. Pt reassured by staff. Pt noted to be standing in shower, fully dressed holding drinking cup without the water running. Security redirected patient back to room. Dr. Castillo notified about ongoing behavior. See mar for orders. Farzaneh Lundberg RN 10/12/24 1255 * Farzaneh Lundberg RN - 10/12/2024 11:05 AM EST Patient's uncle at bedside for visitation. Visitor wanded by security prior to visiting with patient. Patient is tearful but calm while visiting. Farzaneh Lundberg RN 10/12/24 1137 * Farzaneh Lundberg RN - 10/12/2024 9:20 AM EST Patient is very anxious in presentation. Pt states that he is scared and confused. Reassured patient of being at [facility] and is in a safe place. Patient out of rooms multiple times, pacing in hallway looking at exit door. Patient needing frequent redirection and reminders to stay in room. Patient is high risk for elopement. Dr. Castillo aware, see [facility] for orders. Farzaneh Lundberg RN 10/12/24 0955 * Blake Castillo MD - 10/12/2024 8:39 AM EST ED Course as of 10/29/24 0708 TueOct 09, 2024 1311 CBC and differential(!) Blood work reveals leukocytosis, no anemia, electrolyte derangement or renal insufficiency. LFTs are normal. Thus far blood work is reassuring. Awaiting results of urinalysis. [TC] 1424 Urinalysis shows positive for cannabinoids but otherwise negative. Patient medically clear forcrisis evaluation. [TC] 1658 Patient has been seen by the crisis team. She felt this to be new onset psychosis which will need inpatient psychiatric management. Patient is a bed search at this time. [TC] TueOct 11, 2024 0923 qWrite for her Haldol for 10/12 one-time dose [JL] 0926 No issues o/n. Pt comfortable [JL] 1307 Patient is mildly tachycardic no history of EtOH withdrawal. Afebrile patient is basically asymptomatic he has been here for several days no calf pain no cough no shortness of breath obtain a D-dimer and chest x-ray and viral panel. Reassess [JL] 1431 Urinalysis with reflex microscopic [JL] 1505 Still tachycardic on reevaluation to 122. Despite a negative D-dimer is no sign of withdrawal.Will give IV fluids obtain blood cultures and lactic acid improved with fluids or positive lactate will admit for unexplained tachycardia rule out bacteremia [JL] 1522 Tachycardic and although he does have a mild leukocytosis I see no other signs of infection. Deferred antibiotics to be does have an elevated lactate we will start empiric antibiotics assess after IV fluids. Signed out to the oncoming physician [JL] Fri Oct 12, 2024 0839 Received the patient in signout will recheck lab work and EKG see if there is any improvement.Patient appears calm no signs of withdrawal or rigors or sepsis. [JL] 0938 Patient is mildly tachycardic to 118 however nurse states that the patient is very anxious. Likely all this tachycardia is due to anxiety although he peers to mask it very well when I am in the room with him [JL] [facility] Oct 13, 2024 1515 I, Dr. Wyatt Hawkins, have received signout for this patient from Dr. Mooney at 1500 hrs. patient excepted [facility] pending repeat EKG. Repeat EKG is done to be faxed to the intake line now. [MG] 2221 Have not heard back from [facility]. Reschedule crisis but no response. I, Dr. Wyatt Hawkins, signed this patient out pending further workup and evaluation. History and physical reviewed with oncoming team. At this point the pending portions of the work-up are: Follow-up [facility] placement [MG] [place] Oct 14, 2024 1533 I, Dr. Wyatt Hawkins, have received signout for this patient from Dr Muir at 1500 hrs. The patient is currently pending inpatient psychiatric bed search. No issues during my shift. Anticipate signout to overnight team at 2300 hrs.. [MG] 1548 No acute changes during my shift currently pending psychiatric bed search at this time. [facility]. [TC-2] [facility] Oct 15, 2024 0722 I spoke with nurse taking care of the patient, patient has been psychotic, has been evaluated by psychiatry but no medications ordered except for Valium 10 mg every 8 hours, I will order an antipsychotic this patient has been wandering the halls and has to be redirected and has been difficult to place. [KV] 1818 Signout no current issues responded well to his Zyprexa [JL] TueOct 16, 2024 0919 Received patient end of shift transfer care. No acute issues. No issues overnight. [] 0919 Expect placement at [facility] [] 1620 Received patient in signout patient is doing better on scheduled medications. Awaiting placement [JL] TueOct 17, 2024 0746 I, Dr. Wyatt Hawkins, have received signout for this patient from Dr. Crapio at 0700 hrs. The patient is currently pending inpatient psychiatric bed search. Patient excepted to [facility] by Dr. Cornell.Anticipate sign out to Dr. Soler at 1500 hrs. [MG] ED Course User Index [JL] Blake Castillo MD [KV] Brady Lee MD [MC] Joseph Horne DO [MG] Declan Hawkins MD [TC] James Moses MD [TC-2] Veronica Muir DO Clinical Impressions as of 10/29/24 0708 Psychosis, unspecified psychosis type (CMS/HCC) Data Unavailable 1. Psychosis, unspecified psychosis type (CMS/HCC) Procedures * Jaiden Faye RN - 10/12/2024 1:09 AM EST Patient has been demonstrating that he actively hallucinating and is responding to internal stimuli- shows impulsivity running from his room to the pod door multiple times - seems delayed in response to staff intervening verbally - does not want to stay in room and is always watching the exit doorthrough his window while in his room or stands in the day room watching the exit and waiting for someone to happen in - he is high risk for elopement and is very anxious in presentation - inability to sleep at night - high pulse and 1mg ativan shows no effect. * Blake Castillo MD - 10/11/2024 8:02 AM EST ED Course as of 10/29/24 0707 Tue Oct 09, 2024 1311 CBC and differential(!) Blood work reveals leukocytosis, no anemia, electrolyte derangement or renal insufficiency. LFTs are normal. Thus far blood work is reassuring. Awaiting results of urinalysis. [TC] 1424 Urinalysis shows positive for cannabinoids but otherwise negative. Patient medically clear forcrisis evaluation. [TC] 1658 Patient has been seen by the crisis team. She felt this to be new onset psychosis which will need inpatient psychiatric management. Patient is a bed search at this time. [TC] [place] Oct 11, 2024 0923 qWrite for her Haldol for 10/12 one-time dose [JL] 0926 No issues o/n. Pt comfortable [JL] 1307 Patient is mildly tachycardic no history of EtOH withdrawal. Afebrile patient is basically asymptomatic he has been here for several days no calf pain no cough no shortness of breath obtain a D-dimer and chest x-ray and viral panel. Reassess [JL] 1431 Urinalysis with reflex microscopic [JL] 1505 Still tachycardic on reevaluation to 122. Despite a negative D-dimer is no sign of withdrawal.Will give IV fluids obtain blood cultures and lactic acid improved with fluids or positive lactate will admit for unexplained tachycardia rule out bacteremia [JL] 1522 Tachycardic and although he does have a mild leukocytosis I see no other signs of infection. Deferred antibiotics to be does have an elevated lactate we will start empiric antibiotics assess after IV fluids. Signed out to the oncoming physician [JL] Fri Oct 12, 2024 0839 Received the patient in signout will recheck lab work and EKG see if there is any improvement.Patient appears calm no signs of withdrawal or rigors or sepsis. [JL] 0938 Patient is mildly tachycardic to 118 however nurse states that the patient is very anxious. Likely all this tachycardia is due to anxiety although he peers to mask it very well when I am in the room with him [JL] Sat Oct 13, 2024 1515 I, Dr. Wyatt Hawkins, have received signout for this patient from Dr. Mooney at 1500 hrs. patient excepted [facility] pending repeat EKG. Repeat EKG is done to be faxed to the intake line now. [MG] 2221 Have not heard back from [facility]. Reschedule crisis but no response. I, Dr. Wyatt Hawkins, signed this patient out pending further workup and evaluation. History and physical reviewed with oncoming team. At this point the pending portions of the work-up are: Follow-up [facility] placement [MG] [place] Oct 14, 2024 1533 I, Dr. Wyatt Hawkins, have received signout for this patient from Dr Muir at 1500 hrs. The patient is currently pending inpatient psychiatric bed search. No issues during my shift. Anticipate signout to overnight team at 2300 hrs.. [MG] 1548 No acute changes during my shift currently pending psychiatric bed search at this time. Patient will be signed out to oncoming provider. [TC-2] [facility] Oct 15, 2024 0722 I spoke with nurse taking care of the patient, patient has been psychotic, has been evaluated by psychiatry but no medications ordered except for Valium 10 mg every 8 hours, I will order an antipsychotic this patient has been wandering the halls and has to be redirected and has been difficult to place. [KV] 1818 Signout no current issues responded well to his Zyprexa [JL] e Oct 16, 2024 0919 Received patient end of shift transfer care. No acute issues. No issues overnight. [MC] 0919 Expect placement at [facility] [MC] 1620 Received patient in signout patient is doing better on scheduled medications. Awaiting placement [JL] [facility] Oct 17, 2024 0746 I, Dr. Wyatt Hawkins, have received signout for this patient from Dr. Carpio at 0700 hrs. The patient is currently pending inpatient psychiatric bed search. Patient excepted to [facility] by Dr. Cornell.Anticipate sign out to Dr. Soler at 1500 hrs. [MG] ED Course User Index [JL] Blake Castillo MD [KV] Brady Lee MD [MC] Joseph Horne, DO [MG] Declan Hawkins MD [TC] James Moses MD [TC-2] Veronica Muir, DO Clinical Impressions as of 10/29/24 0707 Psychosis, unspecified psychosis type (CMS/HCC) Data Unavailable 1. Psychosis, unspecified psychosis type (CMS/HCC) Procedures * Jo-Ann Mora NP - 10/10/2024 4:12 PM EST Psychiatry Initial Intake Mr Reginaldo Prater is a 24-year-old primarily [place]an speaking gentleman who presents with his family for evaluation of suicidal ideation and possible plan to hang himself. On arrival patient is unclear how he has been feeling like this or the trigger for these feelings. He is intermittently tearful and seems confused about questions. He keeps repeating, Call, don't fall when asked questions. He denies headache, chest pain, abdominal pain, vomiting or diarrhea. He states he does smoke marijuana but does not use fentanyl or heroin. He denies taking medication for any regular medical problems. Patient did reports that he had contemplated hanging himself. Interview with assist of flatwork feeder at bedside. Subjective Yes suicidal, but better now . HPI: Patient responds to most questions I don't remember but is able to reports recent suicidal thoughts. Patient reports potential contributing factor the weed, I am not going to do it anymore . Patient reports inability to remember what he had for meals today (trays empty), where he worked, if hegraduated high school and if he slept last night. Medical Review Of Systems: Objective Lying on bed in POD. Reports from nursing notes patient intermittently throughout the day comes outof room - goes to door of POD and tries to open, responds to direction to return to room. Current Medications: Scheduled Meds: Continuous Infusions: PRN Meds: Stressors: reportedly lost job several weeks ago Past Psychiatric History: Previous therapy: no Previous psychiatric treatment and medication trials: no Previous psychiatric hospitalizations: no Previous diagnoses: no Previous suicide attempts: no History of violence: no Currently in treatment with none. 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,get rid of a hangover or get the day started: no Use of OTC medications: don;t know Psychiatric Review Of Systems: Sleep: yes, reports poor sleep 4-5 days Appetite changes: no Weight changes: don't know Energy: yes Interest/pleasure/anhedonia: yes Somatic symptoms: no Anxiety/panic: yes Guilty/hopeless: no Self-injurious behavior/risky behavior: yes Any drugs: yes, marijuana Alcohol: no Mental Status Exam: General Observations Appearance and Build: age appropriate, overweight , unkempt, and malodorous Demeanor: Withdrawn and Reoccupied Eye Contact: Avoidant Activity: Average Speech: normal pitch and clear Behavior: restless Mood: Better Affect: normal Thought Process: blocked, disorganized, and loose associations Thought Content: Delusions: Reports of thoughts of grandeur Other: preoccupied Self Abuse: suicidal (assess lethality if present): states current thoughts better but recent thoughts- unable to state what the thoughts were or Aggressive: none reported Cognition: Impairment of: attention/concentration Intelligence Estimate: Unable to assess Sensorium/Orientation: person, place, and time/date Perception: Hallucinations: Appears to respond to internal stimuli at times Other: none reported Insight/Judgment: impaired due to concentration, disorganized thoughts Elaboration of Positive Mental Status Findings: Poor sleep, suicidal ideation, disorganized thoughts, inappropriate behaviors and appears to respond to internal stimuli Physical/Somatic Complaints The patient lists: no physical complaints. Functioning in Relationships: Spouse/partner: none Peers: none Employers: lost job Lives with mother Objective: Seclusion/Restraint in last 24 hours: No Blood pressure 138/73, pulse 97, temperature 36.9 ??C (98.4 ??F), resp. rate 20, height 1.7 m (66.93 ), weight 130 kg (286 lb), SpO2 100%. Lab Results: Results for orders placed or performed during the hospital encounter of 10/09/24 ECG 12 lead Collection Time: 10/09/24 11:08 AM Result Value Ref Range Ventricular Rate ECG 128 BPM Atrial Rate 128 BPM P-R Interval 132 ms QRS Duration 80 ms Q-T Interval 300 ms QTc 438 ms P Wave [place] 56 degrees R [place] 58 degrees T [place] 24 degrees ECG Interpretation Sinus tachycardia Cannot rule out Inferior infarct , age undetermined Abnormal ECG No previous ECGs available Confirmed by CATHERINE GARZON ([id number]) on 10/09/2024 9:39:21 PM Comprehensive metabolic panel Collection Time: 10/09/24 11:10 AM Result Value Ref Range Sodium 136 133 - 145 mmol/L Potassium 3.7 3.5 - 5.5 mmol/L Chloride 104 96 - 110 mmol/L CO2 25 21 - 32 mmol/L Anion Gap 7 3 - 11 Glucose 137 (H) 70 - 100 mg/dL BUN 13 5 - 25 mg/dL Creatinine 0.85 0.70 - 1.30 mg/dL eGFR 126 >=60 mL/min/1.73m2 BUN/Creatinine Ratio 15.3 Calcium 9.4 8.5 - 10.5 mg/dL AST (SGOT) 31 10 - 42 unit/L ALT (SGPT) 47 10 - 60 unit/L Alkaline Phosphatase 91 42 - 121 unit/L Total Protein 8.3 (H) 6.0 - 8.0 g/dL Albumin 4.6 3.2 - 5.0 g/dL Total Bilirubin 0.9 0.0 - 1.4 mg/dL Ethanol Collection Time: 10/09/24 11:10 AM Result Value Ref Range Ethanol Level <3 0 - 10 mg/dL Acetaminophen level Collection Time: 10/09/24 11:10 AM Result Value Ref Range Acetaminophen Level <2.0 (L) 10.0 - 30.0 mcg/mL Salicylate level Collection Time: 10/09/24 11:10 AM Result Value Ref Range Salicylate Level <1.7 (L) 2.0 - 29.0 mg/dL CBC auto differential Collection Time: 10/09/24 11:10 AM Result Value Ref Range WBC 16.4 (H) 4.8 - 10.8 K/mcL RBC 5.60 (H) 4.50 - 5.50 M/mcL Hemoglobin 17.1 13.5 - 17.5 g/dL Hematocrit 50.4 42.0 - 54.0 % MCV 89.7 79.0 - 98.0 FL MCH 30.4 27.0 - 32.0 pcg MCHC 33.9 32.0 - 37.0 g/dL RDW 12.5 11.0 - 15.0 % Platelets 282 130 - 400 K/mcL MPV 10.9 7.0 - 11.0 FL NRBC 0.0 <1.0 % NRBC Absolute 0.00 <0.10 K/mcL Neutrophils Relative 72.2 % Lymphocytes Relative 20.0 % Monocytes Relative 6.7 % Eosinophils Relative 0.2 % Basophils Relative 0.4 % Immature Granulocytes Relative 0.5 % Neutrophils Absolute 11.82 (H) 1.50 - 7.00 K/mcL Lymphocytes Absolute 3.28 1.00 - 5.00 K/mcL Monocytes Absolute 1.10 (H) 0.20 - 1.00 K/mcL Eosinophils Absolute 0.03 0.00 - 0.50 K/mcL Basophils Absolute 0.07 0.00 - 0.20 K/mcL Immature Granulocytes Absolute 0.08 (H) 0.00 - 0.03 K/mcL Drug abuse screen 8a panel, urine Collection Time: 10/09/24 1:14 PM Result Value Ref Range Amphetamine Screen, Ur Negative Negative Barbiturate Screen, Ur Negative Negative Benzodiazepine Screen, Ur Negative Negative Cocaine Screen, Ur Negative Negative Opiate Screen, Ur Negative Negative Cannabinoid (THC) Screen, Ur Positive (A) Negative Oxycodone Screen, Ur Negative Negative Fentanyl, Ur Negative Negative Buprenorphine screen, urine Collection Time: 10/09/24 1:14 PM Result Value Ref Range Buprenorphine Screen Urine Negative Negative Phencyclidine, urine Collection Time: 10/09/24 1:14 PM Result Value Ref Range PCP Scrn, Ur Negative Negative Methadone, urine Collection Time: 10/09/24 1:14 PM Result Value Ref Range Methadone Screen, Urine Negative Negative Urinalysis with reflex microscopic Collection Time: 10/09/24 3:42 PM Result Value Ref Range Specific [place] Urine 1.003 1.003 - 1.030 pH, Urine 7.0 5.0 - 8.0 pH Leukocytes, Urine Negative Negative Nitrite, Urine Negative Negative Protein, Urine Negative <=Trace mg/dL Glucose, Urine Negative Negative mg/dL Ketones, Urine Negative Negative mg/dL Urobilinogen, Urine 0.2 0.2 - 1.0 mg/dL Bilirubin, Urine Negative Negative Blood, Urine Negative Negative Rapid [id number], molecular Collection Time: 10/10/24 6:32 AM Specimen: Nares; Swab Result Value Ref Range SARS-COV-2 Screen Not Detected Not Detected Medications: No current facility-administered medications for this encounter. No current outpatient medications on file. Diagnosis/Assessment/Plan: Psychosis, unspecified Suicidal ideation Patient with recent change in behavior, disorganized thoughts, poor sleep, suicidal ideation, responding to internal stimuli Medication Issues: No ADRs 1) Will add olanzapine 5 mg po daily prn anxiety/ agitation. Patient appears to have received a dose while in the ED and appeared to be effective. May promote organization of thoughts. 2) Collaborate with team for inpatient psychiatric hospitalization for patient safety. Mood stabilization and medication management Jo-Ann Mora NP * Larry Oliveros MD - 10/10/2024 8:56 AM EST ED Course as of 10/22/24 1010 Tue Oct 09, 2024 1311 CBC and differential(!) Blood work reveals leukocytosis, no anemia, electrolyte derangement or renal insufficiency. LFTs are normal. Thus far blood work is reassuring. Awaiting results of urinalysis. [TC] 1424 Urinalysis shows positive for cannabinoids but otherwise negative. Patient medically clear forcrisis evaluation. [TC] 1658 Patient has been seen by the crisis team. She felt this to be new onset psychosis which will need inpatient psychiatric management. Patient is a bed search at this time. [TC] [facility] Oct 11, 2024 0923 qWrite for her Haldol for 10/12 one-time dose [JL] 0926 No issues o/n. Pt comfortable [JL] 1307 Patient is mildly tachycardic no history of EtOH withdrawal. Afebrile patient is basically asymptomatic he has been here for several days no calf pain no cough no shortness of breath obtain a D-dimer and chest x-ray and viral panel. Reassess [JL] 1431 Urinalysis with reflex microscopic [JL] 1505 Still tachycardic on reevaluation to 122. Despite a negative D-dimer is no sign of withdrawal.Will give IV fluids obtain blood cultures and lactic acid improved with fluids or positive lactate will admit for unexplained tachycardia rule out bacteremia [JL] 1522 Tachycardic and although he does have a mild leukocytosis I see no other signs of infection. Deferred antibiotics to be does have an elevated lactate we will start empiric antibiotics assess after IV fluids. Signed out to the oncoming physician [JL] Fri Oct 12, 2024 0839 Received the patient in signout will recheck lab work and EKG see if there is any improvement.Patient appears calm no signs of withdrawal or rigors or sepsis. [JL] 0938 Patient is mildly tachycardic to 118 however nurse states that the patient is very anxious. Likely all this tachycardia is due to anxiety although he peers to mask it very well when I am in the room with him [JL] Sat Oct 13, 2024 1515 I, Dr. Wyatt Hawkins, have received signout for this patient from Dr. Mooney at 1500 hrs. patient excepted [facility] pending repeat EKG. Repeat EKG is done to be faxed to the intake line now. [MG] 2221 Have not heard back from [facility]. Reschedule crisis but no response. I, Dr. Wyatt Hawkins, signed this patient out pending further workup and evaluation. History and physical reviewed with oncoming team. At this point the pending portions of the work-up are: Follow-up [facility] placement [MG] Sun Oct 14, 2024 1533 I, Dr. Wyatt Hawkins, have received signout for this patient from Dr Muir at 1500 hrs. The patient is currently pending inpatient psychiatric bed search. No issues during my shift. Anticipate signout to overnight team at 2300 hrs.. [MG] 1548 No acute changes during my shift currently pending psychiatric bed search at this time. [facility] [TC-2] Mon Oct 15, 2024 0722 I spoke with nurse taking care of the patient, patient has been psychotic, has been evaluated by psychiatry but no medications ordered except for Valium 10 mg every 8 hours, I will order an antipsychotic this patient has been wandering the halls and has to be redirected and has been difficult to place. [KV] 1818 Signout no current issues responded well to his Zyprexa [JL] Tue Oct 16, 2024 0919 Received patient end of shift transfer care. No acute issues. No issues overnight. [MC] 0919 Expect placement at [facility] [MC] 1620 Received patient in signout patient is doing better on scheduled medications. Awaiting placement [JL] TueOct 17, 2024 0746 I, Dr. Wyatt Hawkins, have received signout for this patient from Dr. Carpio at 0700 hrs. The patient is currently pending inpatient psychiatric bed search. Patient excepted to [facility] by Dr. Cornell.Anticipate sign out to Dr. Soler at 1500 hrs. [MG] ED Course User Index [JL] Blake Castillo MD [KV] Brady Lee MD [MC] Joseph Horne DO [MG] Declan Hawkins MD [TC] James Moses MD [TC-2] Veronica Muir DO Clinical Impressions as of 10/22/24 1010 Psychosis, unspecified psychosis type (CMS/HCC) Data Unavailable 1. Psychosis, unspecified psychosis type (CMS/HCC) Procedures 24-year-old male patient who presented with suicidal ideation. This is the patient's first psychotic break. Plan is for the patient to go inpatient at this time. No active issues at this time. The patient is calm. Vital signs are stable. * Shavon Blanco RN - 10/09/2024 1:20 PM EST Pt much calmer than earlier. States feeling better. States only home med is otc vitamin. Able to give urine specimen. Slow responses to questions, flat affect. * Shavon Blanco RN - 10/09/2024 11:55 AM EST Pt aggitated and restless, disorganized. Pt placed clarke in toilet, pt voided in urine cup but then poured in back in toilet and on floor. Pt took zyprexa. Muttering to himself, occasionally yelling. * Kamryn León RN - 10/09/2024 11:25 AM EST Patient assisted by stretcher over to y, patient reports feelings of SI, no plan. Asked family at bedside to wait in lobby. Patient assisted to aqua pod. Gait steady, no assistance needed. * Quang Rao RN - 10/09/2024 10:59 AM EST Pt presents from home, accompanied by family, triage difficult secondary to emotional distress- tearful and hyperventilating. Family reports major depression . Intermittently, pt reporting I wantto . * James Moses MD - 10/09/2024 10:39 AM EST Emergency Medicine Note Patient Name: Dario Prater Initial Evaluation: 10/09/2024 : 2000 Patient's PCP: No Pcp Physician Emergency Physician: James Moses MD History of Present Illness Chief Complaint: Chief Complaint Patient presents with Psychiatric Evaluation SI with plan to hang himself 24-year-old male presents with his family for evaluation of suicidal ideation and possibly plan to hang himself. Patient is unclear how he has been feeling like this or the trigger for these feelings. He is intermittently tearful and seems confused about questions. He keeps repeating, Call, don't fall when asked questions. He denies headache, chest pain, abdominal pain, vomiting or diarrhea. Hestates he does smoke marijuana but does not use fentanyl or heroin. He denies taking medication forany regular medical problems. At 1 point he said he had contemplated hanging himself but does not tell me this is his specific plan for self-harm. 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 Physical Exam ED Triage Vitals [10/09/24 1102] Temp Heart Rate Resp BP 37.3 ??C (99.1 ??F) (!) 130 22 (!) 177/117 SpO2 Temp Source Heart Rate Source Patient Position 97 % Oral Monitor Sitting BP Location FiO2 (%) Right arm -- Physical Exam Vitals and nursing note reviewed. Constitutional: Appearance: Normal appearance. He is not ill-appearing. HENT: Head: Normocephalic. Mouth/Throat: Mouth: Mucous membranes are moist. Eyes: Conjunctiva/sclera: Conjunctivae normal. Cardiovascular: Rate and Rhythm: Regular rhythm. Tachycardia present. Pulmonary: Effort: Pulmonary effort is normal. Breath sounds: Normal breath sounds. No stridor. Abdominal: Palpations: Abdomen is soft. Tenderness: There is no abdominal tenderness. Musculoskeletal: Cervical back: Normal range of motion. Right lower leg: No swelling or tenderness. No edema. Left lower leg: No swelling or tenderness. No edema. Skin: General: Skin is warm and dry. Neurological: General: No focal deficit present. Mental Status: He is alert. Psychiatric: Attention and Perception: Attention normal. Behavior: Behavior normal. Results Labs Reviewed COMPREHENSIVE METABOLIC PANEL - Abnormal Result Value Sodium 136 Potassium 3.7 Chloride 104 CO2 25 Anion Gap 7 Glucose 137 (*) BUN 13 Creatinine 0.85 eGFR 126 BUN/Creatinine Ratio 15.3 Calcium 9.4 AST (SGOT) 31 ALT (SGPT) 47 Alkaline Phosphatase 91 Total Protein 8.3 (*) Albumin 4.6 Total Bilirubin 0.9 ACETAMINOPHEN LEVEL - Abnormal Acetaminophen Level <2.0 (*) SALICYLATE LEVEL - Abnormal Salicylate Level <1.7 (*) DRUG ABUSE SCREEN 8A PANEL, URINE - Abnormal Amphetamine Screen, Ur Negative Barbiturate Screen, Ur Negative Benzodiazepine Screen, Ur Negative Cocaine Screen, Ur Negative Opiate Screen, Ur Negative Cannabinoid (THC) Screen, Ur Positive (*) Oxycodone Screen, Ur Negative Fentanyl, Ur Negative Narrative: Assay cutoffs: Amphetamines 1000 ng/mL Barbiturates 200 ng/mL Benzodiazepines 200 ng/mL Cocaine 300 ng/mL Fentanyl 1 ng/mL Opiates 300 ng/mL Oxycodone 100 ng/mL THC 50 ng/mL Semi-quantitative assay for screening purposes only. Unconfirmed screening result should not be used for non-medical purposes. *ALTERNATE METHOD CONFIRMATION DONE UPON REQUEST ONLY* CBC WITH AUTO DIFFERENTIAL - Abnormal WBC 16.4 (*) RBC 5.60 (*) Hemoglobin 17.1 Hematocrit 50.4 MCV 89.7 MCH 30.4 MCHC 33.9 RDW 12.5 Platelets 282 MPV 10.9 NRBC 0.0 NRBC Absolute 0.00 Neutrophils Relative 72.2 Lymphocytes Relative 20.0 Monocytes Relative 6.7 Eosinophils Relative 0.2 Basophils Relative 0.4 Immature Granulocytes Relative 0.5 Neutrophils Absolute 11.82 (*) Lymphocytes Absolute 3.28 Monocytes Absolute 1.10 (*) Eosinophils Absolute 0.03 Basophils Absolute 0.07 Immature Granulocytes Absolute 0.08 (*) LACTATE, WITH REFLEX - Abnormal LACTIC ACID 2.3 (*) LACTATE, WITH REFLEX - Abnormal LACTIC ACID 2.1 (*) CBC WITH AUTO DIFFERENTIAL - Abnormal WBC 14.5 (*) RBC 5.10 Hemoglobin 15.5 Hematocrit 46.2 MCV 90.8 MCH 30.5 MCHC 33.5 RDW 12.9 Platelets 220 MPV 10.5 NRBC 0.0 NRBC Absolute 0.00 Neutrophils Relative 54.8 Lymphocytes Relative 34.6 Monocytes Relative 8.5 Eosinophils Relative 1.2 Basophils Relative 0.6 Immature Granulocytes Relative 0.3 Neutrophils Absolute 7.92 (*) Lymphocytes Absolute 5.00 Monocytes Absolute 1.23 (*) Eosinophils Absolute 0.18 Basophils Absolute 0.08 Immature Granulocytes Absolute 0.05 (*) COMPREHENSIVE METABOLIC PANEL - Abnormal Sodium 141 Potassium 3.7 Chloride 110 CO2 28 Anion Gap 3 Glucose 104 (*) BUN 12 Creatinine 0.82 eGFR 127 BUN/Creatinine Ratio 14.6 Calcium 9.0 AST (SGOT) 26 ALT (SGPT) 54 Alkaline Phosphatase 84 Total Protein 7.1 Albumin 3.9 Total Bilirubin 1.0 RAPID [id number] SCREENING, MOLECULAR - Normal SARS-COV-2 Screen Not Detected RESPIRATORY VIRUS PANEL MOLECULAR STUDY - Normal Adenovirus Detection by PCR Not Detected Influenza A PCR Not Detected Influenza B PCR Not Detected Coronavirus 229E Not Detected Coronavirus HKU1 Not Detected Coronavirus OC43 Not Detected Coronavirus NL63 Not Detected Parainfluenza Virus 1 Not Detected Parainfluenza Virus 2 Not Detected Parainfluenza Virus 3 Not Detected Parainfluenza Virus 4 Not Detected RSV PCR Not Detected Human Metapneumovirus A and B Not Detected Rhinovirus/Enterovirus Not Detected Bordetella pertussis Not Detected Bordetella parapertussis Not Detected Mycoplasma pneumo by PCR Not Detected Chlamydia pneumoniae Not Detected SARS COV-2 Not Detected Narrative: Testing was performed using the [employer] Respiratory Pathogen PCR Assay. All results must be correlated with the clinical findings. Results should not be used as the sole basis for diagnosis. False Negative results may occur from the presence of sequence variants in the region targeted by the assay or the presence of inhibitors. Results may be affected by concurrent antiviral/antimicrobial therapy or levels of organisms that are below the limit of detection. ETHANOL - Normal Ethanol Level <3 BUPRENORPHINE SCREEN, URINE - Normal Buprenorphine Screen Urine Negative Narrative: Assay cutoff 5 ng/mL Semi-quantitative assay for screening purposes only. Unconfirmed screening result should not be used for non-medical purposes. *ALTERNATE METHOD CONFIRMATION DONE UPON REQUEST ONLY* PHENCYCLIDINE, URINE - Normal PCP Scrn, Ur Negative METHADONE SCREEN, URINE - Normal Methadone Screen, Urine Negative URINALYSIS WITH REFLEX MICROSCOPIC - Normal Specific [place] Urine 1.003 pH, Urine 7.0 Leukocytes, Urine Negative Nitrite, Urine Negative Protein, Urine Negative Glucose, Urine Negative Ketones, Urine Negative Urobilinogen, Urine 0.2 Bilirubin, Urine Negative Blood, Urine Negative D-DIMER - Normal D-Dimer, Quant (D-DU) <150 Narrative: D-Dimer <230 ng/mL (D-Dimer units) is the threshold for exclusion of DVT/PE. D-Dimer may be elevated in: Critically ill, severely infected, trauma patients, DIC, acute CVA, acute MD, unstable angina, AF, old age, , and smoking. D-Dimer may be decreased with: Initiation of heparin therapy and oral anticoagulants. THYROID STIMULATING HORMONE - Normal TSH 1.22 SEDIMENTATION RATE - Normal Sed Rate 10 C-REACTIVE PROTEIN - Normal C-Reactive Protein <0.29 CULTURE BLOOD Culture, Blood No growth at 5 days CULTURE BLOOD Culture, Blood No growth at 5 days CBC AND DIFFERENTIAL Narrative: The following orders were created for panel order CBC and differential. Procedure Abnormality Status --------- ------ CBC auto differential[[id number]] Abnormal Final result Please view results for these tests on the individual orders. URINALYSIS WITH REFLEX MICROSCOPIC Narrative: The following orders were created for panel order Urinalysis with reflex microscopic. Procedure Abnormality Status --------- ------ Urinalysis with reflex ...[[id number]] Normal Final result Please view results for these tests on the individual orders. CBC AND DIFFERENTIAL Narrative: The following orders were created for panel order CBC and differential. Procedure Abnormality Status --------- ------ CBC auto differential[[id number]] Abnormal Final result Please view results for these tests on the individual orders. Abnormal Labs Reviewed COMPREHENSIVE METABOLIC PANEL - Abnormal; Notable for the following components: Result Value Glucose 137 (*) Total Protein 8.3 (*) All other components within normal limits ACETAMINOPHEN LEVEL - Abnormal; Notable for the following components: Acetaminophen Level <2.0 (*) All other components within normal limits SALICYLATE LEVEL - Abnormal; Notable for the following components: Salicylate Level <1.7 (*) All other components within normal limits DRUG ABUSE SCREEN 8A PANEL, URINE - Abnormal; Notable for the following components: Cannabinoid (THC) Screen, Ur Positive (*) All other components within normal limits Narrative: Assay cutoffs: Amphetamines 1000 ng/mL Barbiturates 200 ng/mL Benzodiazepines 200 ng/mL Cocaine 300 ng/mL Fentanyl 1 ng/mL Opiates 300 ng/mL Oxycodone 100 ng/mL THC 50 ng/mL Semi-quantitative assay for screening purposes only. Unconfirmed screening result should not be used for non-medical purposes. *ALTERNATE METHOD CONFIRMATION DONE UPON REQUEST ONLY* CBC WITH AUTO DIFFERENTIAL - Abnormal; Notable for the following components: WBC 16.4 (*) RBC 5.60 (*) Neutrophils Absolute 11.82 (*) Monocytes Absolute 1.10 (*) Immature Granulocytes Absolute 0.08 (*) All other components within normal limits LACTATE, WITH REFLEX - Abnormal; Notable for the following components: LACTIC ACID 2.3 (*) All other components within normal limits LACTATE, WITH REFLEX - Abnormal; Notable for the following components: LACTIC ACID 2.1 (*) All other components within normal limits CBC WITH AUTO DIFFERENTIAL - Abnormal; Notable for the following components: WBC 14.5 (*) Neutrophils Absolute 7.92 (*) Monocytes Absolute 1.23 (*) Immature Granulocytes Absolute 0.05 (*) All other components within normal limits COMPREHENSIVE METABOLIC PANEL - Abnormal; Notable for the following components: Glucose 104 (*) All other components within normal limits XR Chest 2 Views Final Result No evidence of active pulmonary disease. [id number] -------- FINAL REPORT -------- Dictated By: Jamal Lin Dictated Date: 10/11/2024 13:45 ET Assigned Physician: Jamal Lin Reviewed and Electronically Signed By: Jamal Lin Signed Date: 10/11/2024 13:46 ET Workstation ID: [id number] Transcribed By: Self Edit Transcribed Date: 10/11/2024 13:45 ET I have discussed the incidental/abnormal imaging and/or lab abnormalities with the patient and haveinstructed them the need for further evaluation and workup with their primary care doctor. I have provided the patient with a paper copy of the abnormality. The laboratory results, imaging results and other diagnostic exam results were reviewed in the EMR. EKG Interpretation Critical Care Time None ? Differential Diagnosis Emotional crisis, psychosis, depression, suicidality, bipolar Medical Decision Making Medical Decision Making Patient arrives tachycardic. EKG will be done. Blood work and urinalysis have been ordered per protocol for medical clearance prior to psychiatric evaluation. No focal neurodeficits to suggest CVA orTIA. Patient is currently a 1: 4 1 watch. Given his emotional lability right now we will give a dose of oral olanzapine. Medications OLANZapine (ZyPREXA ZYDIS) disintegrating tablet 10 mg (10 mg oral Given 10/09/24 114) LORazepam (ATIVAN) tablet 0.5 mg (0.5 mg oral Given 10/10/242249) melatonin tablet 3 mg (3 mg oral Given 10/10/242249) sodium chloride 0.9 % bolus 1,000 mL (0 mL intravenous Stopped 10/11/241923) sodium chloride 0.9 % bolus 1,000 mL (0 mL intravenous Stopped 10/11/242009) LORazepam (ATIVAN) tablet 1 mg (1 mg oral Given 10/11/24 2206) LORazepam (ATIVAN) tablet 1 mg (1 mg oral Given 10/12/24 0939) ziprasidone (GEODON) capsule 20 mg (20 mg oral Given 10/12/24 1256) ED Course as of 10/22/24 0815 Tue Oct 09, 2024 1311 CBC and differential(!) Blood work reveals leukocytosis, no anemia, electrolyte derangement or renal insufficiency. LFTs are normal. Thus far blood work is reassuring. Awaiting results of urinalysis. [TC] 1424 Urinalysis shows positive for cannabinoids but otherwise negative. Patient medically clear forcrisis evaluation. [TC] 1658 Patient has been seen by the crisis team. She felt this to be new onset psychosis which will need inpatient psychiatric management. Patient is a bed search at this time. [TC] Rosemary Oct 11, 2024 0923 qWrite for her Haldol for 10/12 one-time dose [JL] 0926 No issues o/n. Pt comfortable [JL] 1307 Patient is mildly tachycardic no history of EtOH withdrawal. Afebrile patient is basically asymptomatic he has been here for several days no calf pain no cough no shortness of breath obtain a D-dimer and chest x-ray and viral panel. Reassess [JL] 1431 Urinalysis with reflex microscopic [JL] 1505 Still tachycardic on reevaluation to 122. Despite a negative D-dimer is no sign of withdrawal.Will give IV fluids obtain blood cultures and lactic acid improved with fluids or positive lactate will admit for unexplained tachycardia rule out bacteremia [JL] 1522 Tachycardic and although he does have a mild leukocytosis I see no other signs of infection. Deferred antibiotics to be does have an elevated lactate we will start empiric antibiotics assess after IV fluids. Signed out to the oncoming physician [JL] Fri Oct 12, 2024 0839 Received the patient in signout will recheck lab work and EKG see if there is any improvement.Patient appears calm no signs of withdrawal or rigors or sepsis. [JL] 0938 Patient is mildly tachycardic to 118 however nurse states that the patient is very anxious. Likely all this tachycardia is due to anxiety although he peers to mask it very well when I am in the room with him [JL] Sat Oct 13, 2024 1515 I, Dr. Wyatt Hawkins, have received signout for this patient from Dr. Mooney at 1500 hrs. patient excepted [facility] pending repeat EKG. Repeat EKG is done to be faxed to the intake line now. [MG] 222 Have not heard back from [facility]. Reschedule crisis but no response. I, Dr. Wyatt Hawkins, signed this patient out pending further workup and evaluation. History and physical reviewed with oncoming team. At this point the pending portions of the work-up are: Follow-up [facility] placement [MG] Sun Oct 14, 2024 1533 I, Dr. Wyatt Hawkins, have received signout for this patient from Dr Muir at 1500 hrs. The patient is currently pending inpatient psychiatric bed search. No issues during my shift. Anticipate signout to overnight team at 2300 hrs.. [MG] 1548 No acute changes during my shift currently pending psychiatric bed search at this time. Patient will be signed out to oncoming provider. [TC-2] Mon Oct 15, 2024 0722 I spoke with nurse taking care of the patient, patient has been psychotic, has been evaluated by psychiatry but no medications ordered except for Valium 10 mg every 8 hours, I will order an antipsychotic this patient has been wandering the halls and has to be redirected and has been difficult to place. [KV] 1818 Signout no current issues responded well to his Zyprexa [JL] Tue Oct 16, 2024 0919 Received patient end of shift transfer care. No acute issues. No issues overnight. [MC] 0919 Expect placement at [facility] [] 1620 Received patient in signout patient is doing better on scheduled medications. Awaiting placement [JL] Wed Oct 17, 2024 0746 I, Dr. Wyatt Hawkins, have received signout for this patient from Dr. Carpio at 0700 hrs. The patient is currently pending inpatient psychiatric bed search. Patient excepted to [facility] by Dr. Cornell.Anticipate sign out to Dr. Soler at 1500 hrs. [MG] ED Course User Index [JL] Blake Castillo MD [KV] Brady Lee MD [MC] Joseph Horne DO [MG] Declan Hawkins MD [TC] James Moses MD [TC-2] Veronica Johnston Tj Wood, DO Clinical Impressions as of 10/22/24 0815 Psychosis, unspecified psychosis type (CMS/HCC) Procedures Procedures Diagnosis 1. Psychosis, unspecified psychosis type (CMS/HCC) Disposition Send to Specialty Department ED Prescriptions None Physician Attestation Please note that this chart has been created using speech recognition software and may contain errors related to that system, including errors in grammar, punctuation, and spelling. It may also include errors in words and phrases. If there are any questions or concerns, please feel free to contact me for clarification. James Moses MD 10/09/24 1147 James Moses MD 10/09/24 1156 James Moses MD 10/09/24 1353 James Moses MD 10/22/24 0815 documented in this encounter Consult Notes * Katlyn Pike - 10/16/2024 10:42 AM EST Images from the original note were not included. Behavioral Health Services - Mental Status Update Important times Time assessment started: 10:00 a.m. Time of disposition: 10:45 a.m. Location: [facility] Emergency Department Consulted case with: Una Serrato LCSW Reason for Consultation / Presenting Problem: Dario Prater is being seen today for a 24hour re-evaluation due to their state wide bed search being exhausted. Dario was initially referredto Behavioral Health due to SI with plan to hang himself, and his Mother's concerns of his decompensating mental state. During the follow up Dario reports he is doing very good . He states he was depressed before butis doing so well now. Dario states multiple times throughout the follow up that he is doing good . He reports taking medications yesterday and believes they are helpful. Dario states I'm ortiz when asked if he has anything additional to share with the Behavioral Health Specialist ([facility]). He states he has only shared this with the B[facility] and no one else. Collaterals, contact information, and engagement level: Therapist: None reported Psychiatrist: None reported PCP: Unknown Family: Mother Jaspreet (gambian speaking only) [phone]- Not contacted Mental Status Speech: WNL Eye Contact: Intermittent Motor Activity: WNL Mood: Pleasant Affect: Appropriate Sleep: Dario reports his sleep was perfect . Appetite: Dario reports his appetite is good . Memory: No impairment observed during follow up. Attention / Concentration: WNL Behavior: Cooperative Hallucinations: Dario reports he was hearing voices before last night but not anymore . He denied VH. Per previousfollow up Dario was observed responding to internal stimuli. Delusions: Dario was not observed endorsing delusions at time of follow up. Per previous follow up Dario was observed responding to internal stimuli. Thought Content: WNL SI: Denied current. On admittance to the ED Dario endorsed SI with a plan to hang himself. HI: Denied Thought Process: WNL Orientation Impairment: Person Insight: Poor Judgment: Poor Impulse Control: Poor Medications: Scheduled Meds: OLANZapine, 5 mg, oral, BID PRN medications: diazePAM Risk Assessment: Self-Harm: None Suicidal Behavior: None current. On admission to the ED Dario endorsed SI with plan to hang himself. Homicidal Behavior: None Physical Assault: None Physical Aggression: None Property Damage: None Verbal Aggression: None Family history of suicide: Per previous follow up- Mom reported that her brother attempted to kill himself in the past. Protective Factors: Familial support Stable housing Risk Factors: No mental health providers. Struggling with psychotic/bizarre behaviors. Struggling with memory. Unemployed. Unresolved trauma. Suicide Risk: Based on patient's history and current presentation, their level of risk for intentional lethal harm is considered low. However the patients risk for unintentional lethal harm is moderate to high. Interventions: Risk assessment. Active, supportive, and empathetic listening. Psychoeducation. Response to interventions: Dario was receptive to interventions above. DSM-5TR Diagnosis: F29 Unspecified Schizophrenia Spectrum and other psychotic D/O Plan: Dario continues to benefit from an involuntary inpatient psychiatric admission for safety and containment, mood stabilization, psychiatric medication evaluation, diagnostic clarification, an opportunity to engage in therapeutic treatment through individual and group counseling to develop adaptive co ping/symptoms management skills and assistance in accessing community resources at discharge. Recommendations were discussed with requesting provider. It was a pleasure to assist Dario Prater here at [facility]. This report is written and finalized by: Katlyn Pike Under the Supervision of ROMARIO Lugo, [facility] Behavioral Health Specialist [facility] (Tel): [phone] / : [phone] Cosigned by Una Serrato LCSW at 10/16/2024 11:19 AM EST * Meseret Winston - 10/15/2024 11:40 AM EST Images from the original note were not included. Behavioral Health Services - Mental Status Update Important times Time assessment started: 10/15/24 11:00 am Time of disposition: 10/15/24 11:30 am Location: [facility] Emergency Department Consulted case with: Una Serrato LCSW Reason for Consultation / Presenting Problem: Dario Prater is being seen today for a 24hour re-evaluation due to their state wide bed search being exhausted. He was initially seen on 10/09/24. He is a 24-year-old male presents with his family for evaluation of suicidal ideation and possibly plan to hang himself. He is unclear how he has been feeling like this or the trigger for these feelings. He is intermittently tearful and seems confused about questions. He keeps repeating, Call, don't fall when asked questions. He denies headache, chest pain, abdominal pain, vomiting or diarrhea. He states he does smoke marijuana but does not use fentanyl or heroin. He denies taking medication for any regular medical problems. At 1 point he said he had contemplated hanging himself but does not tell me this is his specific plan for self-harm. Dario's mother stated he has never been like this before and that each day that goes by he keeps getting worse and worse. She reported he has not slept in over 3 days and is very confused. His motherreported he thinks that is he tries to sleep he will . She reported he is going backwards. She reported he stated he is going to make it big in music playing his guitar. She reported he is very anx ious and then he will be calm His mother reported he is acting like a small child. She stated he has no history of psychiatric admissions. Dario was seen for a mental status update. The nurse stated today he has been in his room sleeping.She stated there has been no issues today. Dario reported I was tired and I was sleeping cause I am up at night . He reported I am hearing voices that keep calling my name , He reported they keep me up at night mumbling and I don't know what they are saying . Collaterals, contact information, and engagement level: Therapist: None reported Psychiatrist: None reported PCP: Unknown Family: Mother Jaspreet (gambian speaking only) [phone] Mental Status Speech: Slowed Eye Contact: Avoidant Motor Activity: WNL Mood: Anxious Affect: Flat Sleep: Poor Appetite: Poor Memory: WNL Attention / Concentration: Moderate Impairment Behavior: Cooperative and Bizarre Hallucinations: None Delusions: Responding to internal stimuli Thought Content: Preoccupied SI: Denied HI: Denied Thought Process: Blocked Orientation Impairment: Person Insight: WNL and Poor Judgment: Poor Impulse Control: WNL and Poor Medications: Scheduled Meds: OLANZapine, 5 mg, oral, BID Continuous Infusions: PRN Meds: PRN medications: diazePAM Risk Assessment: Self-Harm: None Suicidal Behavior: None Homicidal Behavior: None Physical Assault: None Physical Aggression: None Property Damage: None Verbal Aggression: None Family history of suicide: None reported Protective Factors: Mother is supportive Stable housing Risk Factors: Psychosis and unable to care for himself/not showering Hallucinations Suicide Risk: Based on patient's history and current presentation, their level of risk for intentional lethal harm is considered Low Interventions: Used brief crisis intervention. Response to interventions: Dario tried to engage in the conversation however, struggled. DSM-5TR Diagnosis: F29 Unspecified Schizophrenia Spectrum and other psychotic D/O Plan: Dario is at low risk for suicidal and homicidal plan and intent. He is at risk however, due to his decompensated state. He is confused, not sleeping or showering and is having visual hallucinations. He would benefit from inpatient level of care for safety, stabilization and medication evaluation. He is on a section 12 involuntary. Recommendations were discussed with requesting provider. It was a pleasure to assist Dario Prater here at [facility]. This report is written and finalized by: Meseret Winston MS Behavioral Health Specialist [facility] (Tel): [phone] / : [phone] * Robert Zhou - 10/14/2024 4:08 PM EST Images from the original note were not included. Behavioral Health Services - Mental Status Update Important times Time assessment started: 15:30 Time of disposition: 14:00 Location: Emergency Room (ER) Consulted case with: Una Serrato LCSW Reason for Consultation / Presenting Problem: Dario Prater is being seen today for a 24hour re-evaluation due to their state wide bed search being exhausted. S utilized hospital flatwork feeder to complete assessment. Patient's mother was visiting and patient reported that he was alignedwith mother being in the room during assessment. Patient reported that he is feeling fine today and mainly spoke in one to two word answers to questions. Patient reported that he continues to struggle with his memory, stating that he does not remember [facility] or anything that occurred while at the hospital before today. He denied SI/HI/AH/VH. Mom was aligned with speaking with S and flatwork feeder outside the hospital room. Mom reported thatpatient is still experiencing fear and paranoia. Per mom, patient is scared to leave the hospital because he is concerned others will kill him. Mom also reported that when patient was 18 he assisted in somebody else's suicide by helping the person hang themselves. Mom stated that patient is beginning to discuss this situation and other traumas in his life. She also reported that patient appears more calm and overall better today but was able to identify that patient's presentation differs daily. Mom also stated that patient's cousin has exhibited similar behaviors and once patient learned about cousin's behaviors, patient began to have said behaviors. Collaterals, contact information, and engagement level: Therapist: None reported Psychiatrist: None reported PCP: Unknown Family: MotherJosefa: - Mom was visiting patient at time of assessment and spoke with S regarding mom's concerns for patient. Other: None reported Mental Status Speech: Slowed and quiet Eye Contact: Avoidant Motor Activity: Slowed Mood: Neutral and Depressed Affect: Flat Sleep: WNL Appetite: WNL Memory: Severe Impairment Attention / Concentration: WNL Behavior: Cooperative, Guarded, and Withdrawn Hallucinations: None Delusions: None Thought Content: Phobic SI: Denied HI: Denied Thought Process: Decreased thought flow Orientation Impairment: None Insight: Poor Judgment: Poor Impulse Control: Poor Medications: Scheduled Meds: Continuous Infusions: PRN Meds: PRN medications: diazePAM Risk Assessment: Self-Harm: None Suicidal Behavior: Past and Ideation Homicidal Behavior: None Physical Assault: None Physical Aggression: None Property Damage: None Verbal Aggression: None Family history of suicide: Mom reported that her brother attempted to kill himself in the past. Protective Factors: Patient has familial support. Patient has stable housing. Risk Factors: Patient does not have mental health providers. Patient has been struggling with psychotic/bizarre behaviors. Patient is struggling with his memory. Patient is unemployed. Patient has unresolved trauma. Suicide Risk: Based on patient's history and current presentation, their level of risk for intentional lethal harm is considered Low Interventions: Risk/crisis assessment, active listening, empathetic listening, support Response to interventions: Patient was cooperative but struggled with engagement, speaking minimally and looking away from S. DSM-5TR Diagnosis: F29 Unspecified Schizophrenia Spectrum and other Psychotic Disorder Plan: Based on the information above, patient would continue to benefit from an involuntary inpatient psychiatric admission for safety and containment, mood stabilization, diagnostic evaluation, medicationevaluation, and therapeutic milieu. Upon discharge, patient would also benefit from coordination with outpatient mental health supports. He is currently at risk due to his decompensated state. Recommendations were discussed with requesting provider. It was a pleasure to assist Dario Prater here at [facility]. This report is written and finalized by: Robert Zhou Behavioral Health Specialist [facility] (Tel): [phone] / : [phone] * Meghana Woodward [facility] - 10/12/2024 6:08 PM EST Images from the original note were not included. Behavioral Health Services - Mental Status Update Important times Time assessment started: 5:20 PM Time of disposition: 5:45 PM Location: [facility] Consulted case with: Mervat Singer [facility] Reason for Consultation / Presenting Problem: Dario Prater is being seen today for a 24hour re-evaluation due to their state wide bed search being exhausted. During the mental status Dario was emotional and he reported auditory hallucinations and feeling confuse and depressed. He had minimal engagement. Mom was visiting him. Dario was Ox1 self not to time, place and situation. Collaterals, contact information, and engagement level: Therapist: None reported Psychiatrist: None reported PCP: Unknown Family: Mother: Josefa Mom was present she reported that has been presenting this wayfor about a week. She did not report much. Mental Status Speech: Slowed Eye Contact: WNL Motor Activity: Restless Mood: Anxious and Depressed Affect: Flat Sleep: Fair Appetite: Fair Memory: WNL Attention / Concentration: WNL Behavior: Cooperative Hallucinations: Auditory Delusions: Paranoid Thought Content: WNL SI: Suicidal with Plan but her did not elaborate on his plan. HI: Denied Thought Process: Confuse Orientation Impairment: Person not to time, place and situation Insight: Fair Judgment: Fair Impulse Control: Fair Medications: Scheduled Meds: Continuous Infusions: PRN Meds: PRN medications: diazePAM Risk Assessment: Self-Harm: None Suicidal Behavior: Past with ideation Homicidal Behavior: None Physical Assault: None Physical Aggression: None Property Damage: None Verbal Aggression: None Family history of suicide: Brother attempted to kill himself in the past. Protective Factors: -Help seeking -Supportive family -Stable housing -Denied HI/VH Risk Factors: -No current providers -Suicidal no plan -Auditory hallucinations -Confuse -Emotional -Unemployed Suicide Risk: Based on patient's history and current presentation, their level of risk for intentional lethal harm is considered Low Interventions: -Validating -Active listening Response to interventions: Dario had minimal engaging he was emotional and he was crying during the mental status. DSM-5TR Diagnosis: F29 Unspecified Schizophrenia Spectrum and other Psychotic Disorder Plan: Based on the above information and Dario's presentation he would continue to benefit from an involuntary inpatient psychiatric hospitalization for safety and containment, mood stabilization, diagnostic evaluation, and medication evaluation. He is currently at risk due to his decompensated state. Recommendations were discussed with requesting provider. It was a pleasure to assist Dario Prater here at [facility]. This report is written and finalized by: SHERLYN Perez Behavioral Health Specialist [facility] (Tel): [phone] / : [phone] * Robert Zhou - 10/11/2024 10:06 AM EST Images from the original note were not included. Behavioral Health Services - Mental Status Update Important times Time assessment started: 09:30 Time of disposition: 10:00 Location: Emergency Room (ER) Consulted case with: JUDITH Lugo Reason for Consultation / Presenting Problem: Dario Prater is being seen today for a 24hour re-evaluation due to their state wide bed search being exhausted. S utilized hospital flatwork feeder to complete MSU. Patient appeared downcast. He was sitting on the bed, looking at the floor, and stated that he does not remember anything. Patient asked what happened and S informed patient why he is at [facility]. Patient initially expressed SI but recanted a minute later and stated the last thing he remembers is a drug deal but was unable to discuss further. When asked about VH, patient reported that he wanted to save his grandmother but did not know what he wanted to save his grandmother from. Patient denied HI/AH. [facility] noticed a few drops of blood on the floor of patient's room. Patient stated it was from a bloody nose. S informed nurse and security. Collaterals, contact information, and engagement level: Therapist: None reported Psychiatrist: None reported PCP: Unknown Family: MotherJaspreet (Venezuelan speaking only): UncleWilliams Other: None reported Mental Status Speech: Slowed Eye Contact: Avoidant Motor Activity: Slowed Mood: Anxious and Depressed Affect: Flat Sleep: WNL Appetite: WNL Memory: Moderate Impairment Attention / Concentration: WNL Behavior: Cooperative, Paranoid, and Calm Hallucinations: Visual Delusions: None Thought Content: WNL SI: Presence - Patient initially expressed SI and recanted a minute later HI: Denied Thought Process: Blocked Orientation Impairment: None Insight: Fair Judgment: Poor Impulse Control: Poor Medications: Scheduled Meds: Continuous Infusions: PRN Meds: Risk Assessment: Self-Harm: None Suicidal Behavior: Past and Ideation Homicidal Behavior: None Physical Assault: None Physical Aggression: None Property Damage: None Verbal Aggression: None Family history of suicide: Mother reported that her brother attempted to kill himself in the past. Protective Factors: Patient has familial support. Patient has stable housing. Risk Factors: Patient has been struggling with potential psychosis. Patient reported to not remembering coming to the hospital or any part of his admission until this morning. Patient is unemployed. Suicide Risk: Based on patient's history and current presentation, their level of risk for intentional lethal harm is considered Moderate Interventions: Risk/crisis assessment, active listening, empathetic listening, support Response to interventions: Patient was cooperative, engaged, and aligned with speaking with [facility]. He became weepy when speakingof his mother, but was able to be consoled and reassured that he is able to call his mother. DSM-5TR Diagnosis: F29 Unspecified Schizophrenia Spectrum and other Psychotic Disorder Plan: Based on the information above, patient would continue to benefit from an involuntary inpatient psychiatric hospitalization for safety and containment, mood stabilization, diagnostic evaluation, and medication evaluation. Patient is currently at risk due to his decompensated state. Recommendations were discussed with requesting provider. It was a pleasure to assist Dario Prater here at [facility]. This report is written and finalized by: Robert Zhou Behavioral Health Specialist [facility] (Tel): [phone] / : [phone] * Robert Zhou - 10/10/2024 10:16 AM EST Images from the original note were not included. Behavioral Health Services - Mental Status Update Important times Time assessment started: 09:15 Time of disposition: 09:45 Location: Emergency Room (ER) Consulted case with: VICTORIANO LillyW Reason for Consultation / Presenting Problem: Dario Prater is being seen today for a 24hour re-evaluation due to their state wide bed search being exhausted. [facility] utilized hospital flatwork feeder to complete MSU assessment with patient. Patient's uncle (Williams) was visiting and willing to step out of the room for the conversation. Patient appeared to feel well this morning, evidenced by him smiling and being willing to engage in conversation. He denied SI/HI/VH/AH and struggled to identify the source of stress in his life. Patient continued to state I was just stressed yesterday and repeatedly stated that he's fine now . Eventually, patient was able to state he was stressed about work and that he quit his job three months ago. Uncle was aligned with speaking with [facility] and flatwork feeder outside of patient's room. Uncle identified that patient's depression began after having to leave his job due to discrimination. Per uncle, patient's friend gave him something to smoke about a month ago, which is when his depression increased. He also reported that patient had not slept in the last four days before he arrived at [facility]. Collaterals, contact information, and engagement level: Therapist: None reported Psychiatrist: None reported PCP: Unknown Family: MotherJaspreet (Venezuelan speaking only): UncleWilliams - [facility] spoke with uncle outside of patient's room. Uncle was able to discuss situations leading up to yesterday and reported that he does not feel patient may be experiencing a psychoticbreak. Other: None reported Mental Status Speech: WNL and redundant Eye Contact: WNL Motor Activity: WNL Mood: Pleasant and happy Affect: Appropriate Sleep: WNL Appetite: WNL Memory: Moderate Impairment Attention / Concentration: WNL Behavior: Cooperative, [place] Compliant, and Avoidant Hallucinations: None Delusions: None Thought Content: WNL SI: Denied HI: Denied Thought Process: [place] Orientation Impairment: None Insight: Fair Judgment: Poor Impulse Control: Poor Medications: Scheduled Meds: Continuous Infusions: PRN Meds: Patient reported that he has not had medications from hospital. Risk Assessment: Self-Harm: None Suicidal Behavior: Past and Ideation Homicidal Behavior: None Physical Assault: None Physical Aggression: None Property Damage: None Verbal Aggression: None Family history of suicide: Mother reported that her brother attempted to kill himself in the past. Protective Factors: Patient has familial support. Patient has stable housing. Risk Factors: Patient has been struggling with potential psychosis. Patient did not sleep for four days before arriving to the hospital. Patient's uncle reported that patient experienced discrimination at his work place. Patient is unemployed. Suicide Risk: Based on patient's history and current presentation, their level of risk for intentional lethal harm is considered Low Interventions: Risk/crisis assessment, active listening, empathetic listening, support Response to interventions: Patient was cooperative, engaged, and aligned with speaking with [facility]. He struggled with exploring the triggers to his behaviors yesterday, repeating that he was just stressed and is fine now . DSM-5TR Diagnosis: F29 Unspecified Schizophrenia Spectrum and other Psychotic Disorder Plan: Based on the information above, patient would benefit from an involuntary inpatient psychiatric hospitalization for safety and containment, mood stabilization, diagnostic evaluation, and medication evaluation. Patient is currently at risk due to his decompensated state. Recommendations were discussed with requesting provider. It was a pleasure to assist Dario Prater here at [facility]. This report is written and finalized by: Robert Zhou Behavioral Health Specialist [facility] (Tel): [phone] / : [phone] * Meseret Winston - 10/09/2024 3:43 PM ESTAssociated Order(s): IP CONSULT TO ALLIANCES CONSULTANT Images from the original note were not included. Behavioral Health Services - Crisis Assessment Important times Time of arrival: 10/09/24 11:17 am Time of referral: 10/09/24 11:30 am Time of readiness: 10/09/24 2:15 pm Time assessment started: 10/09/24 2:30 pm Time of disposition: 10/09/24 3:30 pm Location: [facility] Emergency Department Consulted case with: nUa Serrato LCSW Reason for Consultation / Presenting Problem: Dario Prater is being seen today for a consultive service at the request of James Moses MD to assess risk and identify appropriate level of care. He is unknown to [facility]. He is a 24-year-old male presents with his family for evaluation of suicidal ideation and possibly plan to hang himself. He is unclear how he has been feeling like this or the trigger for these feelings. He is intermittently tearful and seems confused about questions. He keeps repeating, Call, don't fall when asked questions. He denies headache, chest pain, abdominal pain, vomiting or diarrhea. He states he does smoke marijuana but does not use fentanyl or heroin. He denies taking medication for any regular medical problems. At 1 point he said he had contemplated hanging himself but does not tell me this is his specific plan for self-harm. Dario was seen with a rn managed care who reported he was speaking gibberish at times. He stated his mother took him here cause she needed him to be okay. He stated I don't know who I am . He stated I was laughing at the small child . He stated I just need to learn how to breath, nothing is wrong . He stated you can cure yourself . Dario's mother stated he has never been like this before and that each day that goes by he keeps getting worse and worse. She reported he has not slept in over 3 days and is very confused. His motherreported he thinks that is he tries to sleep he will . She reported he is going backwards. She reported he stated he is going to make it big in music playing his guitar. She reported he is very anx ious and then he will be calm His mother reported he is acting like a small child. She stated he has no history of psychiatric admissions. History of Present Illness: Dario is a 24 y.o. male with Chief Complaint Patient presents with Psychiatric Evaluation SI with plan to hang himself Social/Educational History: Guardian - if Yes, provide contact information: self Status: N/A State Agency Involvement: None Williams's Order: None Marital Status: single Alternative Placement Details: N/A Living Situation for patient: Parent/Guardian Household Members/Age: Unknown Friendships/Family/Social Peer Support/Relationships: Has good family support. Highest level of education: High School graduate Comments (Include Learning Needs): None reported Occupation: Unemployed Employment/Extracurricular Activities/Hobbies: None reported Limitations of Daily Activities: None Strengths/Supports: Dario has family supports who advocate for him. Collaterals, contact information, and engagement level: Therapist: None reported Psychiatrist: None reported PCP: Unknown Family: Mother Jaspreet (gambian speaking only) [phone] Mental Status Speech: WNL Eye Contact: Avoidant Motor Activity: WNL Mood: WNL, Anxious, and Depressed Affect: Flat Sleep: Poor Appetite: Fair Memory: Moderate Impairment Attention / Concentration: Moderate Impairment Behavior: Cooperative, Agitated, and Bizarre Hallucinations: Visual Delusions: Paranoid Thought Content: Preoccupied SI: Presence HI: Denied Thought Process: Incoherent, Flight of Ideas, and Tangential Orientation Impairment: Person Insight: Poor Judgment: Poor Impulse Control: Fair Substance Use History (Including family history): Dario stated he does not drink alcohol. Marijuana 1-4 x a week. Last use 3 months ago. Utox Results: Substance Use Treatment History: Has not history of substance abuse treatment. Mental Health Treatment History: Outpatient Mental Health Treatment: None reported Previous or Current Psychological Diagnosis: No history of mental health. Prior Psychiatric Hospitalizations/Residential Treatment Facilities: Dario's mother reported he hasno history of suicide attempts or psychiatric hospitalizations. Other Comments Regarding Mental Health Treatment History: None reported Mental Health Concerns in Family: Mother reported on her side of the family she has a few brother'sand cousin who has mental health issues. She stated her brother attempted to kill himself before. Trauma History: Dario denies any history of sexual abuse or other trama. Medications: Scheduled Meds: Continuous Infusions: PRN Meds: Risk Assessment: Self-Harm: None Suicidal Behavior: Ideation Homicidal Behavior: None Physical Assault: None Physical Aggression: None Property Damage: None Verbal Aggression: None Family history of suicide: Mother reported her brother tried to kill himself in the past. Protective Factors: Mother is supportive Stable housing Risk Factors: Over the last week has been psychotic. He is confused, has not slept in 3 days and visual hallucinations. Suicide Risk: Based on patient's history and current presentation, their level of risk for intentional lethal harm is considered Low Interventions: Used brief crisis intervention. Response to interventions: Dario was limited in the conversation. DSM-5TR Diagnosis: F29 Unspecified Schizophrenia Spectrum and other psychotic D/O Plan: Dario is at low risk for suicidal and homicidal plan and intent. He is at risk however, due to his decompensated state. He is confused, not sleeping and is having visual hallucinations. He would benefit from inpatient level of care for safety, stabilization and medication evaluation. He is on a section 12 involuntary. Recommendations were discussed with requesting provider. It was a pleasure to assist Dario Prater here at [facility]. This report is written and finalized by: Meseret Winston MS Behavioral Health Specialist [facility] (Tel): [phone] / : [phone] documented in this encounter Miscellaneous Notes * Psych ED Progress Note 1 - Elizabeth Tovar MD - 10/14/2024 3:54 PM EST S/O: Patient seen and examined by this group underwriter with the assistance of a live unemployment specialist and his mother by his bedside. Dario reports that he has not been suicidal since 10/09/24 but could not give clear reasons for the change. He just simply stated that everything was fine now and he has the support of his mother who has always been a great support for him. He reports sleeping and eating well and denies any safety concerns. Per mother, his anxiety and thinking is clearer but still having some residual symptoms. Current Psychiatric Medication: Diazepam 10mg po q8 hours prn anxiety MSE: Appearance: dressed in hospital gown, malodorous Behavior: poor eye contact, looking at the wall Speech: normal rate, rhythm, volume Mood: fine mood Affect: slightly anxious, guarded, slightly avoidant Thought Process: logical, but evasive/minimizing and seemed a bit disorganized at times. Thought Content: +SI with plan to hang self on 10/09/24 but denies current SI, denies SH, denies HI, behaviors. Insight/Judgement/Impulse control: poor A/P: Unspecified psychosis Dario is a 24 y.o. male who presents with SI with plan to hang self with unclear precipitant who isdenying current SI but is unable to identify the reason for the change. Continue current medication. Continue current plan for inpatient bed search for safety and stabilization. * Psych ED Progress Note 1 - Elizabeth Tovar MD - 10/13/2024 3:19 PM EST S/O: Patient seen and examined by this group underwriter with the assistance of a live unemployment specialist. Dario reports that he has not been suicidal since 10/09/24 but could not give clear reasons for the change. He just simply stated that everything was fine now and he has the support of his mother who has always been a great support for him. He states that he thinks that he may be ortiz and feels confused about his sexuality for the past 3-4 months. When asked if he has had some relationships or other precipitants to this confusion, he simply states that he misses his friends but could not state the reason why. He reports sleeping and eating well and denies any safety concerns.\ Current Psychiatric Medication: Diazepam 10mg po q8 hours prn anxiety MSE: Appearance: dressed in hospital gown, malodorous Behavior: poor eye contact, looking at the floor Cognition: asked what the date was Speech: normal rate, rhythm, volume Mood: good mood Affect: slightly anxious, guarded, slightly avoidant Thought Process: logical, but evasive/minimizing and seemed a bit disorganized at times. Thought Content: +SI with plan to hang self on 10/09/24 but denies current SI, denies SH, denies HI, behaviors. Insight/Judgement/Impulse control: poor A/P: Unspecified psychosis Dario is a 24 y.o. male who presents with SI with plan to hang self with unclear precipitant who isdenying current SI but is unable to identify the reason for the change. Continue current medication. Continue current plan for inpatient bed search for safety and stabilization. documented in this encounter Plan of Treatment Not on file documented as of this encounter Procedures Procedure Name Priority Date/Time Associated Diagnosis Comments ECG 12-LEAD STAT 10/13/2024 7:47 PM EST ECG 12-LEAD STAT 10/12/2024 9:19 AM EST CBC WITH AUTO DIFFERENTIAL STAT 10/12/2024 8:45 AM EST SEDIMENTATION RATE STAT 10/12/2024 8: 45 AM EST CBC AND DIFFERENTIAL STAT 10/12/2024 8:45 AM EST C-REACTIVE PROTEIN STAT 10/12/2024 8: 45 AM EST COMPREHENSIVE METABOLIC PANEL STAT 10/12/2024 8:45 AM EST LACTATE, WITH REFLEX Timed 10/11/2024 5:46 PM EST CULTURE BLOOD STAT 10/11/2024 3:54 PM EST LACTATE, WITH REFLEX STAT 10/11/2024 3:47 PM EST CULTURE BLOOD STAT 10/11/2024 3:47 PM EST XR CHEST 2 VIEWS STAT 10/11/2024 1:28 PM EST RESPIRATORY VIRUS PANEL MOLECULAR STUDY STAT 10/11/2024 1:23 PM EST D-DIMER STAT 10/11/2024 1:23 PM EST RAPID [id number] SCREENING, MOLECULAR STAT 10/10/2024 6:32 AM EST URINALYSIS WITH REFLEX MICROSCOPIC STAT 10/09/2024 3:42 PM EST URINALYSIS WITH REFLEX MICROSCOPIC STAT 10/09/2024 3:42 PM EST DRUG ABUSE SCREEN 8A PANEL, URINE STAT 10/09/2024 1:14 PM EST BUPRENORPHINE SCREEN, URINE STAT 10/09/2024 1:14 PM EST METHADONE SCREEN, URINE STAT 10/09/2024 1:14 PM EST PHENCYCLIDINE, URINE STAT 10/09/2024 1:14 PM EST CBC WITH AUTO DIFFERENTIAL STAT 10/09/2024 11:10 AM EST CBC AND DIFFERENTIAL STAT 10/09/2024 11:10 AM EST THYROID STIMULATING HORMONE STAT Add-on 10/09/2024 11:10 AM EST ETHANOL STAT 10/09/2024 11:10 AM EST ACETAMINOPHEN LEVEL STAT 10/09/2024 1 1:10 AM EST SALICYLATE LEVEL STAT 10/09/2024 11:1 0 AM EST COMPREHENSIVE METABOLIC PANEL STAT 10/09/2024 11:10 AM EST ECG 12-LEAD STAT 10/09/2024 11:08 AM EST ECG ANNOTATED 10/09/2024 ECG ANNOTATED 10/09/2024 ECG ANNOTATED 10/09/2024 documented in this encounter Results * ECG 12 lead (10/13/2024 7:47 PM EST) Ventricular Rate ECG 102 BPM GEMUSE Atrial Rate 102 BPM GEMUSE P-R Interval 124 ms GEMUSE QRS Duration 86 ms GEMUSE Q-T Interval 334 ms GEMUSE QTc 435 ms GEMUSE P Wave [place] 40 degrees GEMUSE R [place] 67 degrees GEMUSE T [place] 27 degrees GEMUSE ECG Interpretation Sinus tachycardia When compared with ECG of 12-OCT-2024 09:19, Nonspecific T wave abnormality no longer evident in Lateral leads Confirmed by FERNY DANGELO ([id number]) on 10/14/2024 12:43:54 AM GEMUSE 10/13/2024 7:47 PM EST 10/14/2024 12:43 AM EST us Declan Hawkins MD ECG ORDERABLES Final Result Performing Organization Address [facility] Phone Number GEMUSE * ECG 12 lead (10/12/2024 9:19 AM EST) Ventricular Rate ECG 118 BPM GEMUSE Atrial Rate 118 BPM GEMUSE P-R Interval 134 ms GEMUSE QRS Duration 90 ms GEMUSE Q-T Interval 324 ms GEMUSE QTc 454 ms GEMUSE P Wave [place] 39 degrees GEMUSE R [place] 61 degrees GEMUSE T [place] 30 degrees GEMUSE ECG Interpretation Sinus tachycardia Nonspecific T wave abnormality Abnormal ECG When compared with ECG of 09-OCT-2024 11:08, Nonspecific T wave abnormality now evident in Lateral leads Confirmed by CATHERINE GARZON ([id number]) on 10/12/2024 5:29:08 PM GEMUSE 10/12/2024 9:19 AM EST 10/12/2024 5:29 PM EST us Blake Castillo MD ECG ORDERABLES Final Resul t Performing Organization Address [facility] de Phone Number GEMUSE * (ABNORMAL) Comprehensive metabolic panel (10/12/2024 8:45 AM EST) Sodium 141 133 - 145 mmol/L LAB CHEMISTRY METHOD 10/12/2024 9:20 AM EST [facility] Potassium 3.7 3.5 - 5.5 mmol/L LAB CHEMISTRY METHOD 10/12/2024 9:20 AM EST [facility] Chloride 110 96 - 110 mmol/L LAB CHEMISTRY METHOD 10/12/2024 9:20 AM EST [facility] CO2 28 21 - 32 mmol/L LAB CHEMISTRY METHOD 10/12/2024 9:20 AM EST [facility] Anion Gap 3 3 - 11 LAB CHEMISTRY METHOD 10/12/2024 9:20 AM [facility] Glucose 104(H) 70 - 100 mg/dL LAB CHEMISTRY METHOD 10/12/2024 9:20 AM [facility] BUN 12 5 - 25 mg/dL LAB CHEMISTRY METHOD 10/12/2024 9:20 AM [facility] Creatinine 0.82 0.70 - 1.30 mg/dL LAB CHEMISTRY METHOD 10/12/2024 9:20 AM [facility] eGFR 127 >=60 mL/min/1. 73m2 LAB CHEMISTRY METHOD 10/12/2024 9:20 AM [facility] Comment:Calculation based on the??Chronic Kidney Disease Epidemiology Collaboration (CKD-EPI) equation refit??without adjustment for race. BUN/Creatinine Ratio 14.6 LAB CHEMISTRY METHOD 10/12/2024 9:20 AM [facility] Calcium 9.0 8.5 - 10.5 mg/dL LAB CHEMISTRY METHOD 10/12/2024 9:20 AM [facility] AST (SGOT) 26 10 - 42 unit/L LAB CHEMISTRY METHOD 10/12/2024 9:20 AM [facility] ALT (SGPT) 54 10 - 60 unit/L LAB CHEMISTRY METHOD 10/12/2024 9:20 AM [facility] Alkaline Phosphatase 84 42 - 121 unit/L LAB CHEMISTRY METHOD 10/12/2024 9:20 AM [facility] Total Protein 7.1 6.0 - 8.0 g/dL LAB CHEMISTRY METHOD 10/12/2024 9:20 AM [facility] Albumin 3.9 3.2 - 5.0 g/dL LAB CHEMISTRY METHOD 10/12/2024 9:20 AM [facility] Total Bilirubin 1.0 0.0 - 1.4 mg/dL LAB CHEMISTRY METHOD 10/12/2024 9:20 AM [facility] Blood Venous blood specimen / Unknown Venipuncture / Unknown 10/12/2024 8:45 AM EST 10/12/2024 8:50 AM EST Vivienne Tucker MD LAB BLOOD ORDERABLES Fin al Result [facility] [address] [place] [address], * (ABNORMAL) CBC auto differential (10/12/2024 8:45 AM EST) WBC 14.5(H) 4.8 - 10.8 K/mcL LAB HEMETOLOGY METHOD 10/12/2024 8:54 AM [facility] RBC 5.10 4.50 - 5.50 M/mcL LAB HEMETOLOGY METHOD 10/12/2024 8:54 AM [facility] Hemoglobin 15.5 13.5 - 17.5 g/dL LAB HEMETOLOGY METHOD 10/12/2024 8:54 AM [facility] Hematocrit 46.2 42.0 - 54.0 % LAB HEMETOLOGY METHOD 10/12/2024 8:54 AM [facility] MCV 90.8 79.0 - 98.0 FL LAB HEMETOLOGY METHOD 10/12/2024 8:54 AM [facility] MCH 30.5 27.0 - 32.0 pcg LAB HEMETOLOGY METHOD 10/12/2024 8:54 AM [facility] MCHC 33.5 32.0 - 37.0 g/dL LAB HEMETOLOGY METHOD 10/12/2024 8:54 AM [facility] RDW 12.9 11.0 - 15.0 % LAB HEMETOLOGY METHOD 10/12/2024 8:54 AM [facility] Platelets 220 130 - 400 K/mcL LAB HEMETOLOGY METHOD 10/12/2024 8:54 AM [facility] MPV 10.5 7.0 - 11.0 FL LAB HEMETOLOGY METHOD 10/12/2024 8:54 AM [facility] NRBC 0.0 <1.0 % LAB HEMETOLOGY METHOD 10/12/2024 8:54 AM [facility] NRBC Absolute 0.00 <0.10 K/[facility] LAB HEMETOLOGY METHOD 10/12/2024 8:54 AM [facility] Neutrophils Relative 54.8 % LAB HEMETOLOGY METHOD 10/12/2024 8:54 AM [facility] Lymphocytes Relative 34.6 % LAB HEMETOLOGY METHOD 10/12/2024 8:54 AM [facility] Monocytes Relative 8.5 % LAB HEMETOLOGY METHOD 10/12/2024 8:54 AM [facility] Eosinophils Relative 1.2 % LAB HEMETOLOGY METHOD 10/12/2024 8:54 AM [facility] Basophils Relative 0.6 % LAB HEMETOLOGY METHOD 10/12/2024 8:54 AM [facility] Immature Granulocytes Relative 0.3 % LAB HEMETOLOGY METHOD 10/12/2024 8:54 AM [facility] Neutrophils Absolute 7.92(H) 1.50 - 7.00 K/mcL LAB HEMETOLOGY METHOD 10/12/2024 8:54 AM [facility] Lymphocytes Absolute 5.00 1.00 - 5.00 K/mcL LAB HEMETOLOGY METHOD 10/12/2024 8:54 AM [facility] Monocytes Absolute 1.23(H) 0.20 - 1.00 K/mcL LAB HEMETOLOGY METHOD 10/12/2024 8:54 AM [facility] Eosinophils Absolute 0.18 0.00 - 0.50 K/mcL LAB HEMETOLOGY METHOD 10/12/2024 8:54 AM EST [facility] Basophils Absolute 0.08 0.00 - 0.20 K/[facility] LAB HEMETOLOGY METHOD 10/12/2024 8:54 AM EST [facility] Immature Granulocytes Absolute 0.05(H) 0.00 - 0.03 K/[facility] LAB HEMETOLOGY METHOD 10/12/2024 8:54 AM EST [facility] Blood Venous blood specimen / Unknown Venipuncture / Unknown 10/12/2024 8:45 AM EST 10/12/2024 8:50 AM EST Vivienne Tucker MD LAB BLOOD ORDERABLES Fin al Result Performing Organization Address [facility]/ZIP Co de Phone Number [facility] [address] [place] [address], * C-reactive protein (10/12/2024 8:45 AM EST) C-Reactive Protein <0.29 <=0.50 mg/dL LAB CHEMISTRY METHOD 10/12/2024 9:20 AM EST [facility] Blood Venous blood specimen / Unknown Venipuncture / Unknown 10/12/2024 8:45 AM EST 10/12/2024 8:50 AM EST Vivienne Tucker MD LAB BLOOD ORDERABLES Fin al Result [facility] [address] [place] [address], [place] [phone] * Sedimentation rate, automated (10/12/2024 8:45 AM EST) Sed Rate 10 0 - 15 mm/hr LAB HEMETOLOGY METHOD 10/12/2024 9:01 AM EST [facility] Blood Venous blood specimen / Unknown Venipuncture / Unknown 10/12/2024 8:45 AM EST 10/12/2024 8:50 AM EST Vivienne Tucker MD LAB BLOOD ORDERABLES Fin al Result Performing Organization Address [facility]/ZIP Co de Phone Number [facility] [address] [place] [address], [place] [phone] * (ABNORMAL) Lactate, with reflex (10/11/2024 5:46 PM EST) LACTIC ACID 2.1(H) 0.4 - 2.0 mmol/L LAB CHEMISTRY METHOD 10/11/2024 6:37 PM EST [facility] Blood Venous blood specimen / Unknown Venipuncture / Unknown 10/11/2024 5:46 PM EST 10/11/2024 6:02 PM EST Blake Castillo MD LAB BLOOD ORDERABLES Final Result Performing Organization Address [facility] Co de Phone Number [facility] [address] [place] [address], [place] [phone] * Blood Culture, Peripheral Draw #2 (10/11/2024 3:54 PM EST) [facility] Culture, Blood No growth at 5 days 10/16/2024 5:01 PM EST [facility] Blood Venous blood specimen / Unknown Venipuncture / Unknown 10/11/2024 3:54 PM EST 10/11/2024 4:00 PM EST Blake Castillo MD LAB MICROBIOLOGY - GENERAL ORDERABLES Final Result Performing Organization Address City/[facility]/ZIP Co de Phone Number [facility] [address] [place] [address], [place] [phone] * (ABNORMAL) Lactate, with reflex (10/11/2024 3:47 PM EST) LACTIC ACID 2.3(H) 0.4 - 2.0 mmol/L LAB CHEMISTRY METHOD 10/11/2024 4:46 PM EST [facility] Blood Venous blood specimen / Unknown Venipuncture / Unknown 10/11/2024 3:47 PM EST 10/11/2024 4:00 PM EST Blake Castillo MD LAB BLOOD ORDERABLES Final Result Performing Organization Address [facility] Co de Phone Number [facility] [address] [place] [address], [place] [phone] * Blood Culture, Peripheral Draw #1 (10/11/2024 3:47 PM EST) [facility] Culture, Blood No growth at 5 days 10/16/2024 5:01 PM EST [facility] Blood Venous blood specimen / Unknown Venipuncture / Unknown 10/11/2024 3:47 PM EST 10/11/2024 3:58 PM EST Blake Castillo MD LAB MICROBIOLOGY - GENERAL ORDERABLES Final Result Performing Organization Address [facility] Co de Phone Number [facility] [address] [place] [address], [place] [phone] * XR Chest 2 Views (10/11/2024 1:28 PM EST) Anatomical Region Laterality Modality Body Radiographic Ariela ging 10/11/2024 1:45 PM EST Impressions 10/11/2024 1:46 PM EST No evidence of active pulmonary disease. [id number] -------- FINAL REPORT -------- Dictated By: Jamal Lin Dictated Date: 10/11/2024 13:45 ET Assigned Physician: Jamal Lin Reviewed and Electronically Signed By: Jamal Lin Signed Date: 10/11/2024 13:46 ET Workstation ID: [id number] Transcribed By: Self Edit Transcribed Date: 10/11/2024 13:45 ET Narrative 10/11/2024 1:46 PM EST INDICATION: Tachycardia FINDINGS: Two views of the chest were obtained. There are no prior studies available for comparison. Lung reynolds are well inflated without infiltrates or effusions. Cardiomediastinal silhouette is normal in size and shape. Bony structures are within normal limits for the patient's age. Procedure Note Jamal Lin MD - 10/11/2024 INDICATION: Tachycardia FINDINGS: Two views of the chest were obtained. There are no prior studiesavailable for comparison. Lung reynolds are well inflated without infiltrates or effusions. Cardiomediastinal silhouette is normal in size and shape. Bony structures are within normal limits for the patient's age. IMPRESSION: No evidence of active pulmonary disease. [id number] -------- FINAL REPORT -------- Dictated By: Jamal Lin Dictated Date: 10/11/2024 13:45 ET Assigned Physician: Jamal Lin Reviewed and Electronically Signed By: Jamal Lin Signed Date: 10/11/2024 13:46 ET Workstation ID: [id number] Transcribed By: Self Edit Transcribed Date: 10/11/2024 13:45 ET Blake Castillo MD IMG XR PROCEDURES Final Res ult * Respiratory virus panel molecular study (10/11/2024 1:23 PM EST) Adenovirus Detection by PCR Not Detected Not Detected LAB MICROBIOLOGY METHOD 10/11/2024 2:46 PM EST [facility] Influenza A PCR Not Detected Not Detected LAB MICROBIOLOGY METHOD 10/11/2024 2:46 PM EST [facility] Influenza B PCR Not Detected Not Detected LAB MICROBIOLOGY METHOD 10/11/2024 2:46 PM [facility] Coronavirus 229E Not Detected Not Detected LAB MICROBIOLOGY METHOD 10/11/2024 2:46 PM EST [facility] Coronavirus HKU1 Not Detected Not Detected LAB MICROBIOLOGY METHOD 10/11/2024 2:46 PM [facility] Coronavirus OC43 Not Detected Not Detected LAB MICROBIOLOGY METHOD 10/11/2024 2:46 PM [facility] Coronavirus NL63 Not Detected Not Detected LAB MICROBIOLOGY METHOD 10/11/2024 2:46 PM [facility] Parainfluenza Virus 1 Not Detected Not Detected LAB MICROBIOLOGY METHOD 10/11/2024 2:46 PM [facility] Parainfluenza Virus 2 Not Detected Not Detected LAB MICROBIOLOGY METHOD 10/11/2024 2:46 PM [facility] Parainfluenza Virus 3 Not Detected Not Detected LAB MICROBIOLOGY METHOD 10/11/2024 2:46 PM [facility] Parainfluenza Virus 4 Not Detected Not Detected LAB MICROBIOLOGY METHOD 10/11/2024 2:46 PM [facility] RSV PCR Not Detected Not Detected LAB MICROBIOLOGY METHOD 10/11/2024 2:46 PM [facility] Human Metapneumovirus A and B Not Detected Not Detected LAB MICROBIOLOGY METHOD 10/11/2024 2:46 PM [facility] Rhinovirus/Entero virus Not Detected Not Detected LAB MICROBIOLOGY METHOD 10/11/2024 2:46 PM [facility] Bordetella pertussis Not Detected Not Detected LAB MICROBIOLOGY METHOD 10/11/2024 2:46 PM [facility] Bordetella parapertussis Not Detected Not Detected LAB MICROBIOLOGY METHOD 10/11/2024 2:46 PM [facility] Mycoplasma pneumo by PCR Not Detected Not Detected LAB MICROBIOLOGY METHOD 10/11/2024 2:46 PM [facility] Chlamydia pneumoniae Not Detected Not Detected LAB MICROBIOLOGY METHOD 10/11/2024 2:46 PM [facility] SARS COV-2 Not Detected Not Detected LAB MICROBIOLOGY METHOD 10/11/2024 2:46 PM [facility] Swab Both anterior nares / Unknown Non-blood Collection / Unknown 10/11/2024 1:23 PM EST 10/11/2024 1:50 PM EST [facility] - 10/11/2024 2:46 PM EST Testing was performed using the [employer] Respiratory Pathogen PCR Assay. All results must be correlated with the clinical findings. Results should not be used as the sole basis for diagnosis. False Negative results may occur from the presence of sequence variants in the region targeted by the assay or the presence of inhibitors. Results may be affected by concurrent antiviral/antimicrobial therapy or levels of organisms that are below the limit of detection. us Blake Castillo MD LAB MICROBIOLOGY - GENERAL ORDERABLES Final Result Performing Organization Address [facility] Co de Phone Number [facility] [address] [place] [address], [place] [phone] * D-dimer, quantitative (10/11/2024 1:23 PM EST) Pathologist [facility] D-Dimer, Quant (D-DU) <150 <=230 ng/mL DDU LAB COAGULATION METHOD 10/11/2024 2:10 PM EST [facility] Blood Venous blood specimen / Unknown Venipuncture / Unknown 10/11/2024 1:23 PM EST 10/11/2024 1:50 PM EST [facility] - 10/11/2024 2:10 PM EST D-Dimer <230 ng/mL (D-Dimer units) is the threshold for exclusion of DVT/PE. D-Dimer may be elevated in: Critically ill, severely infected, trauma patients, DIC, acute CVA, acute MD, unstable angina, AF, old age, , and smoking. D-Dimer may be decreased with: Initiation of heparin therapy and oral anticoagulants. us Blake Castillo MD LAB BLOOD ORDERABLES Final Result Performing Organization Address [facility]/ZIP Co de Phone Number [facility] [address] [place] [address], [place] [phone] * Rapid [id number], molecular (10/10/2024 6:32 AM EST) [facility] SARS-COV-2 Screen Not Detected Not Detected METHOD [id number] 10/10/2024 8:22 AM EST [facility] Swab Both anterior nares / Unknown Non-blood Collection / Unknown 10/10/2024 6:32 AM EST 10/10/2024 8:06 AM EST [facility] LAB MICROBIOLOGY - GENERAL TIFFANIE HUGHES Final Result [facility] [address] [place] [address], [place] [phone] * Urinalysis with reflex microscopic (10/09/2024 3:42 PM EST) [facility] Specific [place] Urine 1.003 1.003 - 1.030 LAB URINALYSIS - AUTOMATED METHOD 10/09/2024 4:15 PM [facility] pH, Urine 7.0 5.0 - 8.0 pH LAB URINALYSIS - AUTOMATED METHOD 10/09/2024 4:15 PM [facility] Leukocytes, Urine Negative Negative LAB URINALYSIS - AUTOMATED METHOD 10/09/2024 4:15 PM [facility] Nitrite, Urine Negative Negative LAB URINALYSIS - AUTOMATED METHOD 10/09/2024 4:15 PM [facility] Protein, Urine Negative <=Trace mg/dL LAB URINALYSIS - AUTOMATED METHOD 10/09/2024 4:15 PM [facility] Glucose, Urine Negative Negative mg/dL LAB URINALYSIS - AUTOMATED METHOD 10/09/2024 4:15 PM [facility] Ketones, Urine Negative Negative mg/dL LAB URINALYSIS - AUTOMATED METHOD 10/09/2024 4:15 PM [facility] Urobilinogen, Urine 0.2 0.2 - 1.0 mg/dL LAB URINALYSIS - AUTOMATED METHOD 10/09/2024 4:15 PM EST [facility] Bilirubin, Urine Negative Negative LAB URINALYSIS - AUTOMATED METHOD 10/09/2024 4:15 PM [facility] Blood, Urine Negative Negative LAB URINALYSIS - AUTOMATED METHOD 10/09/2024 4:15 PM [facility] Urine Urine specimen obtained by clean catch procedure / Unknown Non-blood Collection / Unknown 10/09/2024 3:42 PM EST 10/09/2024 4:06 PM EST James Moses MD LAB URINE ORDERABLES Francisca l Result Performing Organization Address [facility] Co de Phone Number [facility] [address] [place] [address], [place] [phone] * Methadone, urine (10/09/2024 1:14 PM EST) Methadone Screen, Urine Negative Negative LAB CHEMISTRY METHOD 10/09/2024 2:10 PM EST [facility] Comment: Assay cutoff 300 ng/mL Semi-quantitative assay for screening purposes only. Unconfirmed screening result should not be used for non-medical purposes. *ALTERNATE METHOD CONFIRMATION DONE UPON REQUEST ONLY* Urine Urine specimen obtained by clean catch procedure / Unknown Non-blood Collection / Unknown 10/09/2024 1:14 PM EST 10/09/2024 1:30 PM EST us James Moses MD LAB URINE ORDERABLES Francisca l Result Performing Organization Address City/[facility]/ZIP Co de Phone Number [facility] [address] [place] [address], [place] [phone] * Phencyclidine, urine (10/09/2024 1:14 PM EST) PCP Scrn, Ur Negative Negative LAB CHEMISTRY METHOD 10/09/2024 2:17 PM EST [facility] Comment: Assay cutoff 25 ng/mL Semi-quantitative assay for screening purposes only. Unconfirmed screening result should not be used for non-medical purposes. *ALTERNATE METHOD CONFIRMATION DONE UPON REQUEST ONLY* Urine Urine specimen obtained by clean catch procedure / Unknown Non-blood Collection / Unknown 10/09/2024 1:14 PM EST 10/09/2024 1:30 PM EST James Moses MD LAB URINE ORDERABLES Francisca l Result Performing Organization Address [facility]/ZIP Co de Phone Number [facility] [address] [place] [address], [place] [phone] * Buprenorphine screen, urine (10/09/2024 1:14 PM EST) Buprenorphine Screen Urine Negative Negative LAB CHEMISTRY METHOD 10/09/2024 2:10 PM EST [facility] Urine Urine specimen obtained by clean catch procedure / Unknown Non-blood Collection / Unknown 10/09/2024 1:14 PM EST 10/09/2024 1:30 PM EST Narrative [facility] - 10/09/2024 2:10 PM EST Assay cutoff 5 ng/mL Semi-quantitative assay for screening purposes only. Unconfirmed screening result should not be used for non-medical purposes. *ALTERNATE METHOD CONFIRMATION DONE UPON REQUEST ONLY* James Moses MD LAB URINE ORDERABLES Francisca l Result Performing Organization Address [facility]/ZIP Co de Phone Number [facility] [address] [place] [address], [place] [phone] * (ABNORMAL) Drug abuse screen 8a panel, urine (10/09/2024 1:14 PM EST) Amphetamine Screen, Ur Negative Negative LAB CHEMISTRY METHOD 2:17 PM EST [facility] Comment:Certain OTC medicati ons containing ephedrine, phenylephrine, pseudoephedrine and phenylpropanolamine can cause false positive results. Barbiturate Screen, Ur Negative Negative LAB CHEMISTRY METHOD 5 2:17 PM [facility] Benzodiazepine Screen, Ur Negative Negative LAB CHEMISTRY METHOD 5 2:17 PM [facility] Cocaine Screen, Ur Negative Negative LAB CHEMISTRY METHOD 5 2:17 PM [facility] Opiate Screen, Ur Negative Negative LAB CHEMISTRY METHOD 5 2:17 PM [facility] Cannabinoid (THC) Screen, Ur Positive(A ) Negative LAB CHEMISTRY METHOD 5 2:17 PM [facility] Comment:Specimens from patie nts taking pantoprazole sodium (Protonix) have been shown to produce false positive results. Oxycodone Screen, Ur Negative Negative LAB CHEMISTRY METHOD 5 2:17 PM [facility] Fentanyl, Ur Negative Negative LAB CHEMISTRY METHOD 5 2:17 PM [facility] Urine Urine specimen obtained by clean catch procedure / Unknown Non-blood Collection / Unknown 10/09/2024 1:14 PM EST 10/09/2024 1:30 PM EST [facility] - 10/09/2024 2:17 PM EST Assay cutoffs: Amphetamines ? 1000 ng/mL Barbiturates ?200 ng/mL Benzodiazepines ?? 200 ng/mL Cocaine ? 300 ng/mL Fentanyl ?1 ng/mL Opiates ? 300 ng/mL Oxycodone ? 100 ng/mL THC ?50 ng/mL Semi-quantitative assay for screening purposes only. Unconfirmed screening result should not be used for non-medical purposes. *ALTERNATE METHOD CONFIRMATION DONE UPON REQUEST ONLY* us James Moses MD LAB URINE ORDERABLES Francisca l Result [facility] [address] [place] [address], [place] [phone] * Thyroid stimulating hormone (TSH) (10/09/2024 11:10 AM EST) Pathologist [facility] TSH 1.22 0.40 - 4.00 mcIU/mL LAB CHEMISTRY METHOD 10/11/2024 4:08 PM [facility] Blood Venous blood specimen / Unknown Venipuncture / Unknown 10/09/2024 11:10 AM EST 10/09/2024 11:17 AM EST Blake Castillo MD LAB BLOOD ORDERABLES Final Result Performing Organization Address City/[facility]/ZIP Co de Phone Number [facility] [address] [place] [address], [place] [phone] * (ABNORMAL) CBC auto differential (10/09/2024 11:10 AM EST) [facility] WBC 16.4(H) 4.8 - 10.8 K/mcL LAB HEMETOLOGY METHOD 10/09/2024 11:24 AM [facility] RBC 5.60(H) 4.50 - 5.50 M/mcL LAB HEMETOLOGY METHOD 10/09/2024 11:24 AM [facility] Hemoglobin 17.1 13.5 - 17.5 g/dL LAB HEMETOLOGY METHOD 10/09/2024 11:24 AM [facility] Hematocrit 50.4 42.0 - 54.0 % LAB HEMETOLOGY METHOD 10/09/2024 11:24 AM [facility] MCV 89.7 79.0 - 98.0 FL LAB HEMETOLOGY METHOD 10/09/2024 11:24 AM [facility] MCH 30.4 27.0 - 32.0 pcg LAB HEMETOLOGY METHOD 10/09/2024 11:24 AM [facility] MCHC 33.9 32.0 - 37.0 g/dL LAB HEMETOLOGY METHOD 10/09/2024 11:24 AM [facility] RDW 12.5 11.0 - 15.0 % LAB HEMETOLOGY METHOD 10/09/2024 11:24 AM [facility] Platelets 282 130 - 400 K/mcL LAB HEMETOLOGY METHOD 10/09/2024 11:24 AM [facility] MPV 10.9 7.0 - 11.0 FL LAB HEMETOLOGY METHOD 10/09/2024 11:24 AM [facility] NRBC 0.0 <1.0 % LAB HEMETOLOGY METHOD 10/09/2024 11:24 AM [facility] NRBC Absolute 0.00 <0.10 K/mcL LAB HEMETOLOGY METHOD 10/09/2024 11:24 AM [facility] Neutrophils Relative 72.2 % LAB HEMETOLOGY METHOD 10/09/2024 11:24 AM [facility] Lymphocytes Relative 20.0 % LAB HEMETOLOGY METHOD 10/09/2024 11:24 AM [facility] Monocytes Relative 6.7 % LAB HEMETOLOGY METHOD 10/09/2024 11:24 AM [facility] Eosinophils Relative 0.2 % LAB HEMETOLOGY METHOD 10/09/2024 11:24 AM [facility] Basophils Relative 0.4 % LAB HEMETOLOGY METHOD 10/09/2024 11:24 AM [facility] Immature Granulocytes Relative 0.5 % LAB HEMETOLOGY METHOD 10/09/2024 11:24 AM [facility] Neutrophils Absolute 11.82(H) 1.50 - 7.00 K/mcL LAB HEMETOLOGY METHOD 10/09/2024 11:24 AM EST [facility] Lymphocytes Absolute 3.28 1.00 - 5.00 K/[facility] LAB HEMETOLOGY METHOD 10/09/2024 11:24 AM EST [facility] Monocytes Absolute 1.10(H) 0.20 - 1.00 K/mcL LAB HEMETOLOGY METHOD 10/09/2024 11:24 AM EST [facility] Eosinophils Absolute 0.03 0.00 - 0.50 K/[facility] HEMETOLOGY METHOD 10/09/2024 11:24 AM EST [facility] Basophils Absolute 0.07 0.00 - 0.20 K/[facility] HEMETOLOGY METHOD 10/09/2024 11:24 AM [facility] Immature Granulocytes Absolute 0.08(H) 0.00 - 0.03 K/[facility] HEMETOLOGY METHOD 10/09/2024 11:24 AM EST [facility] Blood Venous blood specimen / Unknown Venipuncture / Unknown 10/09/2024 11:10 AM EST 10/09/2024 11:17 AM EST us James Moses MD LAB BLOOD ORDERABLES Francisca l Result [facility] [address] [place] [address], * (ABNORMAL) Salicylate level (10/09/2024 11:10 AM EST) Salicylate Level <1.7(L) 2.0 - 29.0 mg/dL LAB CHEMISTRY METHOD 10/09/2024 12:33 PM EST [facility] Blood Venous blood specimen / Unknown Venipuncture / Unknown 10/09/2024 11:10 AM EST 10/09/2024 11:17 AM EST James Moses MD LAB BLOOD ORDERABLES Francisca l Result Performing Organization Address [facility]/ZIP Co de Phone Number [facility] [address] [place] [address], [place] [phone] * (ABNORMAL) Acetaminophen level (10/09/2024 11:10 AM EST) Acetaminophen Level <2.0(L) 10.0 - 30.0 mcg/mL LAB CHEMISTRY METHOD 10/09/2024 12:38 PM EST [facility] Blood Venous blood specimen / Unknown Venipuncture / Unknown 10/09/2024 11:10 AM EST 10/09/2024 11:17 AM EST James Moses MD LAB BLOOD ORDERABLES Francisca l Result Performing Organization Address [facility] Co de Phone Number [facility] [address] [place] [address], [place] [phone] * Ethanol (10/09/2024 11:10 AM EST) Ethanol Level <3 0 - 10 mg/dL LAB CHEMISTRY METHOD 10/09/2024 12:38 PM EST [facility] Blood Venous blood specimen / Unknown Venipuncture / Unknown 10/09/2024 11:10 AM EST 10/09/2024 11:17 AM EST Jmaes Moses MD LAB BLOOD ORDERABLES Francisca l Result Performing Organization Address [facility]/ZIP Co de Phone Number [facility] [address] [place] [address], [place] [phone] * (ABNORMAL) Comprehensive metabolic panel (10/09/2024 11:10 AM EST) Sodium 136 133 - 145 mmol/L LAB CHEMISTRY METHOD 10/09/2024 12:33 PM EST [facility] Potassium 3.7 3.5 - 5.5 mmol/L LAB CHEMISTRY METHOD 10/09/2024 12:33 PM [facility] Chloride 104 96 - 110 mmol/L LAB CHEMISTRY METHOD 10/09/2024 12:33 PM [facility] CO2 25 21 - 32 mmol/L LAB CHEMISTRY METHOD 10/09/2024 12:33 PM [facility] Anion Gap 7 3 - 11 LAB CHEMISTRY METHOD 10/09/2024 12:33 PM [facility] Glucose 137(H) 70 - 100 mg/dL LAB CHEMISTRY METHOD 10/09/2024 12:33 PM [facility] BUN 13 5 - 25 mg/dL LAB CHEMISTRY METHOD 10/09/2024 12:33 PM [facility] Creatinine 0.85 0.70 - 1.30 mg/dL LAB CHEMISTRY METHOD 10/09/2024 12:33 PM [facility] eGFR 126 >=60 mL/min/1. 73m2 LAB CHEMISTRY METHOD 10/09/2024 12:33 PM [facility] Comment:Calculation based on the??Chronic Kidney Disease Epidemiology Collaboration (CKD-EPI) equation refit??without adjustment for race. BUN/Creatinine Ratio 15.3 LAB CHEMISTRY METHOD 10/09/2024 12:33 PM [facility] Calcium 9.4 8.5 - 10.5 mg/dL LAB CHEMISTRY METHOD 10/09/2024 12:33 PM [facility] AST (SGOT) 31 10 - 42 unit/L LAB CHEMISTRY METHOD 10/09/2024 12:33 PM [facility] ALT (SGPT) 47 10 - 60 unit/L LAB CHEMISTRY METHOD 10/09/2024 12:33 PM [facility] Alkaline Phosphatase 91 42 - 121 unit/L LAB CHEMISTRY METHOD 10/09/2024 12:33 PM [facility] Total Protein 8.3(H) 6.0 - 8.0 g/dL LAB CHEMISTRY METHOD 10/09/2024 12:33 PM EST [facility] Albumin 4.6 3.2 - 5.0 g/dL LAB CHEMISTRY METHOD 10/09/2024 12:33 PM EST [facility] Total Bilirubin 0.9 0.0 - 1.4 mg/dL LAB CHEMISTRY METHOD 10/09/2024 12:33 PM EST [facility] Blood Venous blood specimen / Unknown Venipuncture / Unknown 10/09/2024 11:10 AM EST 10/09/2024 11:17 AM EST James Moses MD LAB BLOOD ORDERABLES Francisca l Result Performing Organization Address [facility] Co de Phone Number [facility] [address] [place] [address], [place] [phone] * ECG 12 lead (10/09/2024 11:08 AM EST) Ventricular Rate ECG 128 BPM [facility] Atrial Rate 128 BPM [facility] P-R Interval 132 ms [facility] QRS Duration 80 ms [facility] Q-T Interval 300 ms [facility] QTc 438 ms GEM[facility] P Wave [place] 56 degrees GEMUSE R [place] 58 degrees GEMUSE T [place] 24 degrees GEMUSE ECG Interpretation Sinus tachycardia Cannot rule out Inferior infarct , age undetermined Abnormal ECG No previous ECGs available Confirmed by CATHERINE GARZON ([id number]) on 10/09/2024 9:39:21 PM [facility] 10/09/2024 11:0 8 AM EST 10/09/2024 9:39 PM EST us James Moses MD ECG ORDERABLES Final Res ult Performing Organization Address [facility]/ZIP Co de Phone Number [facility] * ECG-Annotated (10/09/2024) Provider Senia ROSALES ECG ORDERABLES Final Result * ECG-Annotated (10/09/2024) us Provider Onbase MD ECG ORDERABLES Final Result * ECG-Annotated (10/09/2024) us Provider Onbase MD ECG ORDERABLES Final Result documented in this encounter Visit Diagnoses Diagnosis Psychosis, unspecified psychosis type (CMS/HCC)- Primary documented in this encounter Administered Medications Inactive Administered Medications - up to 3 most recent administrations Medication Order MAR Action Action Date Dose Rate Site diazePAM (VALIUM) tablet 10 mg 10 mg, oral, Every 8 hours PRN, anxiety, Starting on Tue10/12/24 at 1443 Given 10/15/2024 4:40 AM EST 10 mg Given 10/14/2024 8:20 PM EST 10 mg Given 10/13/2024 10:09 PM EST 10 mg diazePAM (VALIUM) tablet 5 mg 5 mg, oral, 2 times daily PRN, anxiety, Starting on Tue10/15/24 at 1509 Given 10/15/2024 5:09 PM EST 5 mg LORazepam (ATIVAN) tablet 0.5 mg 0.5 mg, oral, Once, On Tue10/10/24 at 2230, For 1 dose Given 10/10/2024 10:50 PM EST 0.5 mg LORazepam (ATIVAN) tablet 1 mg 1 mg, oral, Once, On Tue10/11/24 at 2156, For 1 dose Given 10/11/2024 10:06 PM EST 1 mg LORazepam (ATIVAN) tablet 1 mg 1 mg, oral, Once, On Tue10/12/24 at 0928, For 1 dose Given 10/12/2024 9:39 AM EST 1 mg melatonin tablet 3 mg 3 mg, oral, Once, On Tue10/10/24 at 2230, For 1 dose Given 10/10/2024 10:50 PM EST 3 mg OLANZapine (ZyPREXA ZYDIS) disintegrating tablet 10 mg 10 mg, oral, Once, On Tue10/09/24 at 1143, For 1 dose, Tablets should NOT be swallowed whole, chewed, broken, or crushed. Place tablet in mouth, allow to dissolve, and then swallow saliva with or without water. Given 10/09/2024 11:49 AM EST 10 mg OLANZapine (ZyPREXA) tablet 5 mg 5 mg, oral, 2 times daily, First dose on Tue10/15/24 at 0900, For 7 doses Given 10/17/2024 8:28 AM EST 5 mg Given 10/16/2024 8:58 PM EST 5 mg Given 10/16/2024 9:42 AM EST 5 mg sodium chloride 0.9 % bolus 1,000 mL 1,000 mL, intravenous, at 1,000 mL/hr, Administer over 1 Hours, Once, On Tue10/11/24 at 1504, For 1 dose New Bag 10/11/2024 3:56 PM EST 1,000 mL 1000 mL/hr sodium chloride 0.9 % bolus 1,000 mL 1,000 mL, intravenous, at 2,000 mL/hr, Administer over 30 Minutes, Once, On Tue10/11/24 at 1919, For 1 dose New Bag 10/11/2024 7:40 PM EST 1,000 mL 2000 mL/hr ziprasidone (GEODON) capsule 20 mg 20 mg, oral, Once, On Tue10/12/24 at 1214, For 1 dose, May cause prolongation of QT interval. Take with food. HAZARDOUS Drug Precautions - Low Risk (Category A/NIOSH Group 3) Reproductive Risk Only: - Single pair of ASTM standard D6978 certified chemotherapy gloves - Eye protection (goggles or face shield) required only with a potential for facial contact (i.e. concern for spitting or vomiting of the dose during or after administration) - Staff at reproductive risk (actively trying to conceive, or may be become , and ): chemo certified gown and an N95 respirator required when crushing meds (crushing of tabs allowed only in closed pouches) or opening of capsules only for allowable dosage forms Given 10/12/2024 12:56 PM EST 20 mg documented in this encounter Active and Recently Administered Medications Times are shown in EST. Scheduled Medication Order 10/15/2024 10/16/2024 10/17/2024 OLANZapine (ZyPREXA) tablet 5 mg 5 mg, oral, 2 times daily, First dose on Tue10/15/24 at 0900, For 7 doses 0843 (Given - Provider: Tatum Andino RN)2052 (Given - Provider: Nedra Gates RN) 0942 (Given - Provider: Saira Nagel, RN)2057 (Given - Provider: Barbara Bales, RN) 0800 (Given - Provider: Juanis Rodriguez RN) PRN Medication Order 10/15/2024 10/16/2024 10/17/2024 diazePAM (VALIUM) tablet 10 mg (CANCELED) 10 mg, oral, Every 8 hours PRN, anxiety, Starting on Tue10/12/24 at 1443 0440 (Given - Provider: Jaiden Faye RN) diazePAM (VALIUM) tablet 5 mg 5 mg, oral, 2 times daily PRN, anxiety, Starting on 10/15/24 at 1509 1709 (Given - Provider: Tatum Andino RN) documented in this encounter Orders Medications Ordered That Jaime ht Not Have Been Administered Count Last Ordered Date First Ordered Date diazePAM (VALIUM) tablet 10 mg 1 10/12/2024 sodium chloride 0.9 % bolus 1,000 mL 1 09/26 Consult Count Last Ordered Date First Orde red Date IP CONSULT TO ALLIANCES CONSULTANT 1 10/09/2024 documented in this encounter Additional Health Concerns Infection Onset Date Last Indicated Resolved Time Respiratory Rule-Out 10/11/2024 10/11/2024 025 2:46 PM EST documented as of this encounter Care Teams Screw Supervisor Relationship Specialty Start Date End Date Physician, No Pcp PCP - General 10/09/24 documented as of this encounter
[2024-11-12 16:42] VITALS: BP 142/68; PULSE 78; RESP 16; TEMP 36.3; O2SAT 97
== END 2024-11-12 17:26 | disposition home or self-care (01) ==
PROVIDERS: Physician Assistant Medical; Emergency Provider Emergency Medicine
DX: F33.1 Major depressive disorder, recurrent, moderate (principal); F20.9 Schizophrenia, unspecified; Z51.81 Encounter for therapeutic drug level monitoring; Z79.899 Other long term (current) drug therapy
CPT/HCPCS: 36415; 80053; 80143; 80179; 80307; 81001; 85025; 99285; S9485

== ENCOUNTER 2024-11-14 12:08 | Inpatient (IN) | payer MEDICAID, OTHER, SELFPAY ==
[2024-11-14 12:24] VITALS: BP 136/82; PULSE 78; RESP 18; TEMP 36.9; O2SAT 97; BMI 30.7
--- NOTE | 2024-11-14 12:49 | ED_ITS ---
HPI - General Adult General Chief complaint: Psychiatric Symptoms Stated complaint: Scared Time Seen by Provider: 11/14/24 12:49 Source: patient and dispatcher service (maltese) Mode of arrival: ambulatory Limitations: language barrier (maltese) History of Present Illness ED Provider: SULAIMAN BARRAZA PA-C HPI narrative: 24-year-old female with pmhx significant for schizoaffective disorder, depressive type self presents to the emergency department today for evaluation of auditory hallucinations. States these voices are telling him to commit suicide and to harm his mother. He states he has not acted on these. He does not have a plan in which he would harm himself or his mother. He reports compliance with all home medications. He cannot recall the last time he followed up with his psychiatrist. Admits to THC use, denies other ilicit substance use. Denies etoh consumption. Denies any physical complaints. Related Data Home Medications ?Medication ?Instructions ?Recorded ?Confirmed mirtazapine 15 mg tablet 15 mg PO BEDTIME 11/12/24 11/14/24 propranolol 20 mg tablet 20 mg PO TID 11/12/24 11/14/24 Previous Rx's ?Medication ?Instructions ?Recorded clonidine HCl 0.1 mg tablet 0.1 mg PO BID 30 days #60 tabs 10/25/24 haloperidol 10 mg tablet 10 mg PO BID 30 days #60 tabs 10/25/24 Allergies Allergy/AdvReac Type Severity Reaction Status Date / Time No Known Allergies Allergy Verified 11/14/24 12:28 Review of Systems 2 Review of Systems: Constitutional: No fever, chills, fatigue, night sweats, weight changes ENT/Mouth: No ear pain, hearing loss, nasal congestion, sinus pain, rhinorrhea, sore throat Eyes: No eye pain, swelling, redness, vision changes, discharge Cardio: No chest pain, palpitations, MONIQUE, orthopnea, peripheral edema Pulm: No SOB, cough, sputum, wheezing, dyspnea, hemoptysis GI: No nausea, vomiting, hematemesis, abdominal pain, diarrhea, constipation, hematochezia, melena : No irregular bleeding, dysuria, frequency, urgency, hesitancy, hematuria, flank pain, urinary flow changes, urinary incontinence or retention MSK: No back pain, neck pain, joint pain, myalgias Skin: No lesions, rashes Neuro: No weakness, numbness, paresthesias, LOC, dizziness, headache Psych: No anxiety/panic, depression, +AH, +SI/HI All other systems reviewed and are negative. [facility] Past Medical History Attestation statement: The following information was validated with the patient. Source: old records reviewed and nursing notes reviewed Medical History Medical clearance for psychiatric admission Schizoaffective disorder, depressive type Social History Social History Household Members: Family Housing: Apartment Do you presently have visiting nurse or other home services: No Patient Tobacco Use Status: Former Tobacco user Tobacco use type: Cigarette Cigarette Packs Per Day: 0.3 Cigarettes Per Day: 6.0 Years Smoked: 1 year Second Hand Smoke Exposure: No Substance Use Type: Marijuana Advance Directives: No Advance Directives Information Provided: No Do you have a plan to hurt others: No Plan service: No Sexual orientation: Unable to collect Physical Exam ED Vital Signs: Vital Signs - 24 hr 11/14/24 12:24 Temperature 98.4 F Pulse Rate 78 Respiratory Rate 18 Blood Pressure 136/82 Pulse Oximetry 97 Oxygen Delivery Method Room Air BMI result Body Mass Index 30.7 vital signs stable General: no acute distress Skin: Warm, dry, intact. No rashes or lesions. Head: Normocephalic, atraumatic. EENT: Hearing is intact b/l. Conjunctiva clear. PERRLA. EOM intact. Moist mucous membranes.? Neck: Supple without LAD Cardiac: Chest wall symmetric. RRR. Lungs: Normal respiratory effort without accessory muscle use. CTA bilaterally. Abdomen: Soft, non-tender, non-distended Back: No midline spinous or paraspinal tenderness. No step off deformity. Ext: Upper and lower extremities atraumatic, without tenderness, deformity, swelling or erythema Neuro: AOx3. Normal speech. CN 2-12 grossly intact. Ambulating with steady gait. Psych: avoids eye contact Course Course Course Narrative: 1610 -- Patient with leukocytosis of 12.4 which appears to be around his baseline. There is no left shift. No anemia. H&H stable. Chemistry without acute electrolyte abnormality requiring intervention. No AIMEE. Liver function around baseline. Urine without infection. urine drug screen negative. ethanol 11. Salicylates, acetaminophen undetectable. > patient is medically cleared at this time. Physician observation initiated pending care team evaluation. Medical Decision Making Medical Decision Making [facility] Narrative: 24-year-old female with pmhx significant for schizoaffective disorder, depressive type self presents to the emergency department today for evaluation of auditory hallucinations. vital signs stable. patient is AOX3, appears paranoid, does not make eye contact. physical exam otherwise unremarkable. Differential diagnosis includes schizophrenia, paranoia, polysubstance use, medication noncompliance, anemia, electrolyte abnormality Plan for medical clearance, care team eval Differential Diagnosis Differential Diagnoses: The differential diagnosis associated with the presentation includes as above. Admission/Observation Consideration of admission/observation: Escalation of care including admission/observation considered Lab Data [facility] Lab Attestation statement: I reviewed the patient's lab results. as above 11/14/24 13:50 11/14/24 13:50 Labs: Lab Results 11/14/24 11/14/24 Range/Units 13:20 13:50 WBC 12.4 H (4.8-10.8) X10*3/uL RBC 5.42 (4.60-5.80) X10*6/uL Hgb 16.6 (14.0-18.0) g/dl Hct 47.8 (42.0-52.0) % MCV 88.2 (80.0-98.0) fL MCH 30.6 (27.0-33.0) pg MCHC 34.7 (31.0-36.0) g/dl RDW 12.7 (11.0-16.0) % Plt Count 263 (160-400) X10*3/uL MPV 10.3 (9.4-12.4) fL Immature Gran % (Auto) 0.2 (0.0-0.4) % Neut % (Auto) 65.4 (45-73) % Lymph % (Auto) 24.1 (20-40) % [place] % (Auto) 8.9 (2-11) % Eos % (Auto) 0.8 (0-4) % Baso % (Auto) 0.6 (0-2) % Lymph # (Auto) 3.0 (1.2-4.9) X10*3/uL [place] # (Auto) 1.1 (0.1-1.2) X10*3/uL Eos # (Auto) 0.1 (0.0-0.4) X10*3/uL Baso # (Auto) 0.1 (0.0-0.2) X10*3/uL Abs Immat Gran (auto) 0.03 (0.00-0.03) X10*3/uL Absolute Neuts (auto) 8.1 (2.0-8.3) x10*3/uL Absolute Nucleated RBC 0.000 (0.0-0.012) X10*3/uL Nucleated RBC % (auto) 0.0 (0.0-0.2) /100WBC Sodium 142 (135-145) mmol/L Potassium 4.0 (3.3-5.1) mmol/L Chloride 111 H (96-108) mmol/L Carbon Dioxide 23 (22-29) mmol/L Anion Gap 12 (12-20) BUN 17 H (9-16) mg/dL Creatinine 0.67 (0.5-1.4) mg/dL Estim Creat Clear Calc 166.2 Estimated GFR > 60 Random Glucose 109 (60-115) mg/dL Calcium 9.3 (8.4-10.2) mg/dL Magnesium 2.2 (1.6-2.6) mg/dL Total Bilirubin 0.7 (0.0-1.0) mg/dL AST 25 (5-37) U/L ALT 37 (0-40) U/L Alkaline Phosphatase 84 (39-117) U/L Total Protein 8.1 H (6.5-8.0) g/dL Albumin 4.5 (3.5-5.0) g/dL Urine Color Yellow Urine Appearance Clear Urine pH 5.5 (5.0-9.0) Ur Specific [place] >= 1.030 H (1.005-1.025) Urine Protein Negative (Neg-Trace) mg/dL Urine Glucose (UA) Negative (Negative) mg/dL Urine Ketones Negative (Negative) mg/dL Urine Blood Negative (Negative) Urine Nitrite Negative (Negative) Ur Leukocyte Esterase Negative (Negative) Salicylates < 5.0 L (15-30) mg/dL Urine Opiates Screen Not Detected (Not Detect) Ur Buprenorphine Scrn Not Detected (Not Detect) ng/mL Ur Oxycodone Screen Not Detected (Not Detect) ng/mL Urine Methadone Screen Not Detected (Not Detect) ng/mL Urine Fentanyl Screen Not Detected (Not Detect) Acetaminophen < 3 (<30) mcg/mL Ur Barbiturates Screen Not Detected (Not Detect) Ur Phencyclidine Scrn Not Detected (Not Detect) Ur Amphetamines Screen Not Detected (Not Detect) U Benzodiazepines Scrn Not Detected (Not Detect) Urine Cocaine Screen Not Detected (Not Detect) U Marijuana (THC) Screen POSITIVE H (Not Detect) Ethyl Alcohol 11 mg/dL External Record Review External record reviewed: Inpatient record Chronic Conditions Patient?s care impacted by: Other (Schizoaffective) Social Determinants Patient?s care significantly limited by Social Determinants of Health including: Other Social Determinant of Health Critical Care Time Critical Care Time Critical Care Time: No Discharge Plan Discharge Clinical Impression: Paranoid delusion, Auditory hallucinations Patient Disposition: Still a Patient Prescriptions: No Action clonidine HCl 0.1 mg Tablet 0.1 mg PO BID 30 Days Qty: 60 0RF Protocol: Hold for SBP< HOLD for SBP < : 90 haloperidol 10 mg tablet 10 mg PO BID 30 Days Qty: 60 0RF mirtazapine 15 mg tablet 15 mg PO BEDTIME propranolol 20 mg tablet 20 mg PO TID Print Language: Qatari
--- OUTSIDE RECORDS SUMMARY | 2024-11-14 13:04 | XMS_ITS | Encounter Summary ---
Author Organization [employer] Address [address] [place] [address] Care Team Providers Care Tick Inspector Name Role Phone Physician, No Pcp Primary Care Provider Unavaila ble Reason for Visit * Reason Comments Psychiatric Evaluation SI with plan to h ang himself Encounter Details Date Type Department Care Team (Late st Contact Info) Description 10/09/2024 11:17 AM EST - 10/17/2024 11:39 AM EST Emergency [facility] Emergency [address] [place] [id number] James Moses MD [address] [place] [id number] Brady Lee MD [address] [place] [address] [id number] Veronica Muir DO [address] [place] [phone] Vivienne Tucker MD [address] [place] [phone] Blake Castillo MD [address] [address] Shayne Soler DO [address] [place] [id number] Davis Mooney MD [address] [place] [id number] Declan Hawkins MD [address] [place] [address] Marcellus Carpio MD [address] [place] [address] Joseph Horne DO [address] [place] [address] Psychosis, unspecified psychosis type (CMS/HCC) (Primary Dx) [...] Disposition Disposition Code Departure Means Destination Comment [facility] documented in this encounter Progress Notes * Carina Oconnor - 10/17/2024 10:28 AM EST Patient accepted to [facility], by Dr Ace, for today 10/17/24. ETA [...] am in the room with him [JL] [facility] Oct 13, 2024 1515 I, Dr. Wyatt Hawkins, have received signout for this patient from Dr. Mooney at 1500 hrs. patient excepted [facility] pending repeat EKG. Repeat EKG is done to be faxed to the intake line now. [MG] 2221 Have not heard back from [facility]. Reschedule crisis but no response. I, Dr. Wyatt Hawkins, signed this patient out pending further workup and evaluation. History and physical reviewed with oncoming team. At this point the pending portions of the work-up are: Follow-up [facility] placement [MG] [place] Oct 14, 2024 1533 I, Dr. Wyatt [...] be signed out to oncoming provider. [TC-2] [facility] Oct 15, 2024 0722 I spoke with [...] issues overnight. [] 0919 Expect placement at [facility] [] 1620 Received patient in signout patient is doing better on scheduled medications. Awaiting placement [JL] TueOct 17, 2024 0746 I, Dr. Wyatt Hawkins, have received signout for this patient from Dr. Carpio at 0700 hrs. The patient is currently pending inpatient psychiatric bed search. Patient [place] [facility] Cornell.Anticipate sign out to Dr. [...] Progress note Interview with assist of video dial brusher Scott #[id number] Patient seen by me, nursing report reviewed [...] 300 ms QTc 438 ms P Wave [place] 56 degrees R [place] 58 degrees T [place] 24 degrees ECG Interpretation Sinus tachycardia Cannot [...] 3:42 PM Result Value Ref Range Specific [place] Urine 1.003 1.003 - 1.030 pH, Urine 7.0 5.0 - 8.0 pH Leukocytes, Urine Negative Negative Nitrite, Urine Negative Negative Protein, Urine Negative <=Trace mg/dL Glucose, Urine Negative Negative mg/dL Ketones, Urine Negative Negative mg/dL Urobilinogen, Urine 0.2 0.2 - 1.0 mg/dL Bilirubin, Urine Negative Negative Blood, Urine Negative Negative Rapid [id number], molecular Collection Time: 10/10/24 6:32 AM Specimen: [...] 324 ms QTc 454 ms P Wave [place] 39 degrees R [place] 61 degrees T [place] 30 degrees ECG Interpretation Sinus tachycardia Nonspecific [...] 334 ms QTc 435 ms P Wave [place] 40 degrees R [place] 67 degrees T [place] 27 degrees ECG Interpretation Sinus tachycardia When compared with ECG of 12-OCT-2024 09:19, Nonspecific T wave abnormality no longer evident in Lateral leads Confirmed by FERNY DANGELO ([id number]) on 10/14/2024 12:43:54 AM Medications: Current Facility-Administered Medications Medication Dose Route Frequency Provider Last Rate Last Admin diazePAM (VALIUM) tablet 5 mg 5 mg oral BID PRN Jo-Ann Morgan, UNDERWRITING SERVICE REPRESENTATIVE 5 mg at 10/15/24 1709 OLANZapine (ZyPREXA) tablet 5 mg 5 mg oral BID Jo-Ann Morgan, UNDERWRITING SERVICE REPRESENTATIVE 5 mg at 10/16/24 0942 No current [...] Dr. Mooney at 1500 hrs. patient excepted [facility] pending repeat EKG. Repeat EKG is done to be faxed to the intake line now. [MG] 2221 Have not heard back from [facility]. Reschedule crisis but no response. I, Dr. Wyatt Hawkins, signed this patient out pending further workup and evaluation. History and physical reviewed with oncoming team. At this point the pending portions of the work-up are: Follow-up [facility] placement [MG] [place] Oct 14, 2024 1533 [...] issues overnight. [MC] 0919 Expect placement at [facility] [] 1620 Received patient in signout patient is doing better on scheduled medications. Awaiting placement [JL] TueOct 17, 2024 0746 I, Dr. Wyatt Hawkins, have received signout for this patient from Dr. Carpio at 0700 hrs. The patient is currently pending inpatient psychiatric bed search. Patient excepted [place] [facility] [place] Cornell.Anticipate sign out to Dr. [...] Dr. Mooney at 1500 hrs. patient excepted [facility] pending repeat EKG. Repeat EKG is done to be faxed to the intake line now. [MG] 2221 Have not heard back from [facility]. Reschedule crisis but no response. I, Dr. Wyatt Hawkins, signed this patient out pending further workup and evaluation. [facility] At this point the pending portions of the work-up are: Follow-up [facility] placement [MG] [place] Oct 14, 2024 1533 [...] issues overnight. [MC] 0919 Expect placement at [facility] [MC] 1620 Received patient in signout patient [...] unspecified psychosis type (CMS/HCC) Procedures * Blake Csatillo MD - 10/15/2024 3:36 PM EST ED [...] Dr. Mooney at 1500 hrs. patient excepted [facility] pending repeat EKG. Repeat EKG is done to be faxed to the intake line now. [MG] 2221 Have not heard back from [facility]. Reschedule crisis but no response. I, Dr. Wyatt Hawkins, signed this patient out pending further workup and evaluation. History and physical reviewed with oncoming team. At this point the pending portions of the work-up are: Follow-up [facility] placement [MG] [place] Oct 14, 2024 1533 I, Dr. Wyatt [...] be signed out to oncoming provider. [TC-2] [facility] Oct 15, 2024 0722 I spoke with [...] issues overnight. [MC] 0919 Expect placement at [facility] [] 1620 Received patient in signout patient is doing better on scheduled medications. Awaiting placement [JL] [facility] Oct 17, 2024 0746 I, Dr. Wyatt Hawkins, have received signout for this patient from Dr. Carpio at 0700 hrs. The patient is currently pending inpatient psychiatric bed search. Patient excepted [place] [facility] [place] Cornell.Anticipate sign out to Dr. [...] Progress note Interview with assist of video dial brusher Teto #[id number] Patient seen by me, nursing report reviewed [...] 300 ms QTc 438 ms P Wave [place] 56 degrees R [place] 58 degrees T [place] 24 degrees ECG Interpretation Sinus tachycardia Cannot [...] 3:42 PM Result Value Ref Range Specific [place] Urine 1.003 1.003 - 1.030 pH, Urine 7.0 5.0 - 8.0 pH Leukocytes, Urine Negative Negative Nitrite, Urine Negative Negative Protein, Urine Negative <=Trace mg/dL Glucose, Urine Negative Negative mg/dL Ketones, Urine Negative Negative mg/dL Urobilinogen, Urine 0.2 0.2 - 1.0 mg/dL Bilirubin, Urine Negative Negative Blood, Urine Negative Negative Rapid [id number], molecular Collection Time: 10/10/24 6:32 AM Specimen: [...] 324 ms QTc 454 ms P Wave [place] 39 degrees R [place] 61 degrees T [place] 30 degrees ECG Interpretation Sinus tachycardia Nonspecific [...] 334 ms QTc 435 ms P Wave [place] 40 degrees R [place] 67 degrees T [place] 27 degrees ECG Interpretation Sinus tachycardia When [...] negative. Patient medically clear forcrisis evaluation. [TC] 5982 Patient has been seen by the crisis [...] Dr. Mooney at 1500 hrs. patient excepted [facility] pending repeat EKG. Repeat EKG is done to be faxed to the intake line now. [MG] 2221 Have not heard back from [facility]. Reschedule crisis but no response. I, Dr. Wyatt Hawkins, signed this patient out pending further workup and evaluation. [facility] At this point the pending portions of the work-up are: Follow-up [facility] placement [MG] [place] Oct 14, 2024 1533 [...] issues overnight. [MC] 0919 Expect placement at [facility] [] 1620 Received patient in signout patient is doing better on scheduled medications. Awaiting placement [JL] TueOct 17, 2024 0746 I, Dr. Wyatt Hawkins, have received signout for this patient from Dr. Carpio at 0700 hrs. The patient is currently pending inpatient psychiatric bed search. Patient excepted [place] [facility] [place] Cornell.Anticipate sign out to Dr. Soler at 1500 hrs. [MG] ED Course User Index [JL] Blake Castillo MD [KV] Brady Lee MD [MC] Joseph Horne DO [MG] Decaln Hawkins MD [TC] James Moses MD [TC-2] [...] Dr. Mooney at 1500 hrs. patient excepted [facility] pending repeat EKG. Repeat EKG is done to be faxed to the intake line now. [MG] 2221 Have not heard back from [facility]. Reschedule crisis but no response. I, Dr. Wyatt Hawkins, signed this patient out pending further workup and evaluation. History and physical reviewed with oncoming team. At this point the pending portions of the work-up are: Follow-up [facility] placement [MG] [place] Oct 14, 2024 1533 [...] a bed search at this time. [TC] [facility] Oct 11, 2024 0923 qWrite for [...] Dr. Mooney at 1500 hrs. patient excepted [facility] pending repeat EKG. Repeat EKG is done to be faxed to the intake line now. [MG] 2221 Have not heard back from [facility]. Reschedule crisis but no response. I, Dr. Wyatt Hawkins, signed this patient out pending further workup and evaluation. History and physical reviewed with oncoming team. At this point the pending portions of the work-up are: Follow-up [facility] placement [MG] Sun Oct 14, 2024 1533 [...] time. [facility] [TC-2] Mon Oct 15, 2024 0722 [...] issues overnight. [] 0919 Expect placement at [facility] [] 1620 Received patient in signout patient is doing better on scheduled medications. Awaiting placement [JL] TueOct 17, 2024 0746 I, Dr. Wyatt Hawkins, have received signout for this patient from Dr. Carpio at 0700 hrs. The patient is currently pending inpatient psychiatric bed search. Patient excepted [place] [facility] [place] Cornell.Anticipate sign out to Dr. [...] and confused. Reassured patient of being at [facility] and is in a safe place. Patient out of rooms multiple times, pacing in hallway looking at exit door. Patient needing frequent redirection and reminders to stay in room. Patient is high risk for elopement. Dr. Castillo aware, see [facility] for orders. Farzaneh Lundberg RN 10/12/24 [...] am in the room with him [JL] [facility] Oct 13, 2024 1515 I, Dr. Wyatt Hawkins, have received signout for this patient from Dr. Mooney at 1500 hrs. patient excepted [facility] pending repeat EKG. Repeat EKG is done to be faxed to the intake line now. [MG] 2221 Have not heard back from [facility]. Reschedule crisis but no response. I, Dr. Wyatt Hawkins, signed this patient out pending further workup and evaluation. History and physical reviewed with oncoming team. At this point the pending portions of the work-up are: Follow-up [facility] placement [MG] [place] Oct 14, 2024 1533 [...] time. [facility] [TC-2] [facility] Oct 15, 2024 0722 I spoke with [...] issues overnight. [] 0919 Expect placement at [facility] [] 1620 Received patient in signout patient is doing better on scheduled medications. Awaiting placement [JL] TueOct 17, 2024 0746 I, Dr. Wyatt Hawkins, have received signout for this patient from Dr. Carpio at 0700 hrs. The patient is currently pending inpatient psychiatric bed search. Patient excepted [place] [facility] [place] Cornell.Anticipate sign out to Dr. [...] Dr. Mooney at 1500 hrs. patient excepted [facility] pending repeat EKG. Repeat EKG is done to be faxed to the intake line now. [MG] 2221 Have not heard back from [facility]. Reschedule crisis but no response. I, Dr. Wyatt Hawkins, signed this patient out pending further workup and evaluation. History and physical reviewed with oncoming team. At this point the pending portions of the work-up are: Follow-up [facility] placement [MG] [place] Oct 14, 2024 1533 I, Dr. Wyatt [...] be signed out to oncoming provider. [TC-2] [facility] Oct 15, 2024 0722 I spoke with [...] issues overnight. [MC] 0919 Expect placement at [facility] [MC] 1620 Received patient in signout patient is doing better on scheduled medications. Awaiting placement [JL] [facility] Oct 17, 2024 0746 I, Dr. Wyatt Hawkins, have received signout for this patient from Dr. Carpio at 0700 hrs. The patient is currently pending inpatient psychiatric bed search. Patient excepted [place] [facility] [place] Cornell.Anticipate sign out to Dr. [...] Mr Reginaldo Prater is a 24-year-old primarily Turkmen speaking gentleman who presents with his family [...] contemplated hanging himself. Interview with assist of dial brusher at bedside. 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 to steady [...] 300 ms QTc 438 ms P Wave [place] 56 degrees R [place] 58 degrees T [place] 24 degrees ECG Interpretation Sinus tachycardia Cannot [...] 3:42 PM Result Value Ref Range Specific [place] Urine 1.003 1.003 - 1.030 pH, Urine 7.0 5.0 - 8.0 pH Leukocytes, Urine Negative Negative Nitrite, Urine Negative Negative Protein, Urine Negative <=Trace mg/dL Glucose, Urine Negative Negative mg/dL Ketones, Urine Negative Negative mg/dL Urobilinogen, Urine 0.2 0.2 - 1.0 mg/dL Bilirubin, Urine Negative Negative Blood, Urine Negative Negative Rapid [id number], molecular Collection Time: 10/10/24 6:32 AM Specimen: [...] a bed search at this time. [TC] [facility] Oct 11, 2024 0923 qWrite for [...] Dr. Mooney at 1500 hrs. patient excepted [facility] pending repeat EKG. Repeat EKG is done to be faxed to the intake line now. [MG] 2221 Have not heard back from [facility]. Reschedule crisis but no response. I, Dr. Wyatt Hawkins, signed this patient out pending further workup and evaluation. History and physical reviewed with oncoming team. At this point the pending portions of the work-up are: Follow-up [facility] placement [MG] Sun Oct 14, 2024 1533 [...] time. [facility] [TC-2] Mon Oct 15, 2024 0722 [...] issues overnight. [MC] 0919 Expect placement at [facility] [MC] 1620 Received patient in signout patient is doing better on scheduled medications. Awaiting placement [JL] TueOct 17, 2024 0746 I, Dr. Wyatt Hawkins, have received signout for this patient from Dr. Carpio at 0700 hrs. The patient is currently pending inpatient psychiatric bed search. Patient excepted to [facility] [place] Cornell.Anticipate sign out to Dr. [...] Patient History limited by: Mental status change director post used: Yes (Titus) ROS: I have performed [...] 7.1 Albumin 3.9 Total Bilirubin 1.0 RAPID [id number] SCREENING, MOLECULAR - Normal SARS-COV-2 Screen Not [...] Detected Narrative: Testing was performed using the Next Jump Respiratory Pathogen PCR Assay. All results must [...] URINALYSIS WITH REFLEX MICROSCOPIC - Normal Specific [place] Urine 1.003 pH, Urine 7.0 Leukocytes, Urine [...] infected, trauma patients, DIC, acute CVA, acute NV, unstable angina, AF, old age, , and [...] Procedure Abnormality Status --------- ------ CBC auto differential[[id number]] Abnormal Final result Please view results for these tests on the individual orders. URINALYSIS WITH REFLEX MICROSCOPIC Narrative: The following orders were created for panel order Urinalysis with reflex microscopic. Procedure Abnormality Status --------- ------ Urinalysis with reflex ...[[id number]] Normal Final result Please view results for these tests on the individual orders. CBC AND DIFFERENTIAL Narrative: The following orders were created for panel order CBC and differential. Procedure Abnormality Status --------- ------ CBC auto differential[[id number]] Abnormal Final result Please view results for [...] Result No evidence of active pulmonary disease. [address] -------- FINAL REPORT -------- Dictated By: Jamal Lin Dictated Date: 10/11/2024 13:45 ET Assigned Physician: Jamal Lin Reviewed and Electronically Signed By: Jamal Lin Signed Date: 10/11/2024 13:46 ET Workstation ID: [id number] Transcribed By: Self Edit Transcribed Date: 10/11/2024 [...] Dr. Mooney at 1500 hrs. patient excepted [facility] pending repeat EKG. Repeat EKG is done to be faxed to the intake line now. [MG] 222 Have not heard back from [facility]. Reschedule crisis but no response. I, Dr. Wyatt Hawkins, signed this patient out pending further workup and evaluation. History and physical reviewed with oncoming team. At this point the pending portions of the work-up are: Follow-up [facility] placement [MG] Sun Oct 14, 2024 1533 [...] issues overnight. [MC] 0919 Expect placement at [facility] [] 1620 Received patient in signout patient is doing better on scheduled medications. Awaiting placement [JL] Wed Oct 17, 2024 0746 I, Dr. Wyatt Hawkins, have received signout for this patient from Dr. Carpio at 0700 hrs. The patient is currently pending inpatient psychiatric bed search. Patient excepted [place] [facility] [place] Cornell.Anticipate sign out to Dr. [...] a.m. Time of disposition: 10:45 a.m. Location: [facility] Emergency Department Consulted case with: Una [...] None reported PCP: Unknown Family: Mother Jaspreet (st [place] speaking only) [phone]- Not contacted Mental Status Speech: WNL Eye [...] pleasure to assist Dario Prater here at [facility]. This report is written and finalized by: Katlyn Pike Under the Supervision of ROMARIO Lugo, [facility] Behavioral Health Specialist [facility] (Tel): [phone] / : [phone] Cosigned by Una Serrato LCSW at 10/16/2024 11:19 AM EST * Meseret Winston - 10/15/2024 11:40 AM EST Images from the original note were not included. Behavioral Health Services - Mental Status Update Important times Time assessment started: 10/15/24 11:00 am Time of disposition: 10/15/24 11:30 am Location: [facility] Emergency Department Consulted case with: Una [...] this is his specific plan for self-harm. Draio's mother stated he has never been like [...] None reported PCP: Unknown Family: Mother Jaspreet (st [place] speaking only) [phone] Mental Status Speech: Slowed Eye Contact: Avoidant [...] pleasure to assist Dario Prater here at [facility]. This report is written and finalized by: Meseret Winston MS Behavioral Health Specialist [facility] (Tel): [phone] / : [phone] * Robert Zhou - 10/14/2024 4:08 PM [...] bed search being exhausted. S utilized hospital dial brusher to complete assessment. Patient's mother was visiting [...] was aligned with speaking with S and dial brusher outside the hospital room. Mom reported thatpatient [...] pleasure to assist Dario Prater here at [facility]. This report is written and finalized by: Robert Zhou Behavioral Health Specialist [facility] (Tel): [phone] / : [phone] * Meghana Woodward [facility] - 10/12/2024 6:08 PM EST Images from the original note were not included. Behavioral Health Services - Mental Status Update Important times Time assessment started: 5:20 PM Time of disposition: 5:45 PM Location: [facility] Consulted case with: Mervat Singer [facility] Reason for Consultation / Presenting Problem: Dario [...] pleasure to assist Dario Prater here at [facility]. This report is written and finalized by: SHERLYN Perez Behavioral Health Specialist [facility] (Tel): [phone] / : [phone] * Robert Zhou - 10/11/2024 10:06 AM [...] bed search being exhausted. S utilized hospital dial brusher to complete MSU. Patient appeared downcast. He was sitting on the bed, looking at the floor, and stated that he does not remember anything. Patient asked what happened and S informed patient why he is at [facility]. Patient initially expressed SI but recanted a [...] Psychiatrist: None reported PCP: Unknown Family: MotherJaspreet (Turkmen speaking only): UncleWilliams Other: None reported Mental [...] pleasure to assist Dario Prater here at [facility]. This report is written and finalized by: Robert Zhou Behavioral Health Specialist [facility] (Tel): [phone] / : [phone] * Robert Zhou - 10/10/2024 10:16 AM [...] their state wide bed search being exhausted. [facility] utilized hospital dial brusher to complete MSU assessment with patient. Patient's [...] ago. Uncle was aligned with speaking with [facility] and dial brusher outside of patient's room. Uncle identified that patient's depression began after having to leave his job due to discrimination. Per uncle, patient's friend gave him something to smoke about a month ago, which is when his depression increased. He also reported that patient had not slept in the last four days before he arrived at [facility]. Collaterals, contact information, and engagement level: Therapist: None reported Psychiatrist: None reported PCP: Unknown Family: MotherJaspreet (Turkmen speaking only): UncleWilliams - [facility] spoke with uncle outside of patient's room. [...] Impairment Attention / Concentration: WNL Behavior: Cooperative, [place] Compliant, and Avoidant Hallucinations: None Delusions: None Thought Content: WNL SI: Denied HI: Denied Thought Process: [place] Orientation Impairment: None Insight: Fair Judgment: Poor [...] pleasure to assist Dario Prater here at [facility]. This report is written and finalized by: Robert Zhou Behavioral Health Specialist [facility] (Tel): [phone] / : [phone] * Meseret Winston - 10/09/2024 3:43 PM ESTAssociated Order(s): IP CONSULT TO FISHING REEL ASSEMBLER Images from the original note were not included. Behavioral Health Services - Crisis Assessment Important times Time of arrival: 10/09/24 11:17 am Time of referral: 10/09/24 11:30 am Time of readiness: 10/09/24 2:15 pm Time assessment started: 10/09/24 2:30 pm Time of disposition: 10/09/24 3:30 pm Location: [facility] Emergency Department Consulted case with: Una Serrato LCSW Reason for Consultation / Presenting Problem: Dario Prater is being seen today for a consultive service at the request of James Moses MD to assess risk and identify appropriate level of care. He is unknown to [facility]. He is a 24-year-old male presents with [...] for self-harm. Dario was seen with a type rolling machine operator who reported he was speaking gibberish at [...] None reported PCP: Unknown Family: Mother Jaspreet (st [place] speaking only) [phone] Mental Status Speech: WNL Eye Contact: Avoidant [...] pleasure to assist Dario Prater here at [facility]. This report is written and finalized by: Meseret Winston MS Behavioral Health Specialist [facility] (Tel): [phone] / : [phone] documented in this encounter Miscellaneous Notes * Psych ED Progress Note 1 - Elizabeth Tovar MD - 10/14/2024 3:54 PM EST S/O: Patient seen and examined by this software writer with the assistance of a live slitter scorer cut off operator and his mother by his bedside. Dario [...] S/O: Patient seen and examined by this software writer with the assistance of a live slitter scorer cut off operator. Dario reports that he has not been [...] D-DIMER STAT 10/11/2024 1:23 PM EST RAPID [id number] SCREENING, MOLECULAR STAT 10/10/2024 6:32 AM EST [...] GEMUSE QTc 435 ms GEMUSE P Wave [place] 40 degrees GEMUSE R [place] 67 degrees GEMUSE T [place] 27 degrees GEMUSE ECG Interpretation Sinus tachycardia When compared with ECG of 12-OCT-2024 09:19, Nonspecific T wave abnormality no longer evident in Lateral leads Confirmed by FERNY DANGELO ([id number]) on 10/14/2024 12:43:54 AM GEMUSE 10/13/2024 7:47 PM EST 10/14/2024 12:43 AM EST us Declan Hawkins MD ECG ORDERABLES Final Result Performing Organization Address [facility] Phone Number GEMUSE * ECG 12 lead (10/12/2024 9:19 AM EST) Ventricular Rate ECG 118 BPM GEMUSE Atrial Rate 118 BPM GEMUSE P-R Interval 134 ms GEMUSE QRS Duration 90 ms GEMUSE Q-T Interval 324 ms GEMUSE QTc 454 ms GEMUSE P Wave [place] 39 degrees GEMUSE R [place] 61 degrees GEMUSE T [place] 30 degrees GEMUSE ECG Interpretation Sinus tachycardia Nonspecific T wave abnormality Abnormal ECG When compared with ECG of 09-OCT-2024 11:08, Nonspecific T wave abnormality now evident in Lateral leads Confirmed by CATHERINE GARZON ([id number]) on 10/12/2024 5:29:08 PM GEMUSE 10/12/2024 9:19 AM EST 10/12/2024 5:29 PM EST us Blake Castillo MD ECG ORDERABLES Final Resul t Performing Organization Address [facility] de Phone Number GEMUSE * (ABNORMAL) Comprehensive metabolic panel (10/12/2024 8:45 AM EST) Sodium 141 133 - 145 mmol/L LAB CHEMISTRY METHOD 10/12/2024 9:20 AM EST [facility] Potassium 3.7 3.5 - 5.5 mmol/L LAB CHEMISTRY METHOD 10/12/2024 9:20 AM EST [facility] Chloride 110 96 - 110 mmol/L LAB CHEMISTRY METHOD 10/12/2024 9:20 AM EST [facility] CO2 28 21 - 32 mmol/L LAB CHEMISTRY METHOD 10/12/2024 9:20 AM EST [facility] Anion Gap 3 3 - 11 LAB CHEMISTRY METHOD 10/12/2024 9:20 AM [facility] Glucose 104(H) 70 - 100 mg/dL LAB CHEMISTRY METHOD 10/12/2024 9:20 AM [facility] BUN 12 5 - 25 mg/dL LAB CHEMISTRY METHOD 10/12/2024 9:20 AM [facility] Creatinine 0.82 0.70 - 1.30 mg/dL LAB CHEMISTRY METHOD 10/12/2024 9:20 AM [facility] eGFR 127 >=60 mL/min/1. 73m2 LAB CHEMISTRY METHOD 10/12/2024 9:20 AM [facility] Comment:Calculation based on the??Chronic Kidney Disease Epidemiology Collaboration (CKD-EPI) equation refit??without adjustment for race. BUN/Creatinine Ratio 14.6 LAB CHEMISTRY METHOD 10/12/2024 9:20 AM [facility] Calcium 9.0 8.5 - 10.5 mg/dL LAB CHEMISTRY METHOD 10/12/2024 9:20 AM [facility] AST (SGOT) 26 10 - 42 unit/L LAB CHEMISTRY METHOD 10/12/2024 9:20 AM [facility] ALT (SGPT) 54 10 - 60 unit/L LAB CHEMISTRY METHOD 10/12/2024 9:20 AM [facility] Alkaline Phosphatase 84 42 - 121 unit/L LAB CHEMISTRY METHOD 10/12/2024 9:20 AM [facility] Total Protein 7.1 6.0 - 8.0 g/dL LAB CHEMISTRY METHOD 10/12/2024 9:20 AM [facility] Albumin 3.9 3.2 - 5.0 g/dL LAB CHEMISTRY METHOD 10/12/2024 9:20 AM [facility] Total Bilirubin 1.0 0.0 - 1.4 mg/dL LAB CHEMISTRY METHOD 10/12/2024 9:20 AM [facility] Blood Venous blood specimen / Unknown Venipuncture / Unknown 10/12/2024 8:45 AM EST 10/12/2024 8:50 AM EST Vivienne Tucker MD LAB BLOOD ORDERABLES Fin al Result [facility] [address] [place] [address], * (ABNORMAL) CBC auto differential (10/12/2024 8:45 AM EST) WBC 14.5(H) 4.8 - 10.8 K/mcL LAB HEMETOLOGY METHOD 10/12/2024 8:54 AM [facility] RBC 5.10 4.50 - 5.50 M/mcL LAB HEMETOLOGY METHOD 10/12/2024 8:54 AM [facility] Hemoglobin 15.5 13.5 - 17.5 g/dL LAB HEMETOLOGY METHOD 10/12/2024 8:54 AM [facility] Hematocrit 46.2 42.0 - 54.0 % LAB HEMETOLOGY METHOD 10/12/2024 8:54 AM [facility] MCV 90.8 79.0 - 98.0 FL LAB HEMETOLOGY METHOD 10/12/2024 8:54 AM [facility] MCH 30.5 27.0 - 32.0 pcg LAB HEMETOLOGY METHOD 10/12/2024 8:54 AM [facility] MCHC 33.5 32.0 - 37.0 g/dL LAB HEMETOLOGY METHOD 10/12/2024 8:54 AM [facility] RDW 12.9 11.0 - 15.0 % LAB HEMETOLOGY METHOD 10/12/2024 8:54 AM [facility] Platelets 220 130 - 400 K/mcL LAB HEMETOLOGY METHOD 10/12/2024 8:54 AM [facility] MPV 10.5 7.0 - 11.0 FL LAB HEMETOLOGY METHOD 10/12/2024 8:54 AM [facility] NRBC 0.0 <1.0 % LAB HEMETOLOGY METHOD 10/12/2024 8:54 AM [facility] NRBC Absolute 0.00 <0.10 [facility] HEMETOLOGY METHOD 10/12/2024 8:54 AM [facility] Neutrophils Relative 54.8 % LAB HEMETOLOGY METHOD 10/12/2024 8:54 AM [facility] Lymphocytes Relative 34.6 % LAB HEMETOLOGY METHOD 10/12/2024 8:54 AM [facility] Monocytes Relative 8.5 % LAB HEMETOLOGY METHOD 10/12/2024 8:54 AM [facility] Eosinophils Relative 1.2 % LAB HEMETOLOGY METHOD 10/12/2024 8:54 AM [facility] Basophils Relative 0.6 % LAB HEMETOLOGY METHOD 10/12/2024 8:54 AM [facility] Immature Granulocytes Relative 0.3 % LAB HEMETOLOGY METHOD 10/12/2024 8:54 AM [facility] Neutrophils Absolute 7.92(H) 1.50 - 7.00 K/mcL LAB HEMETOLOGY METHOD 10/12/2024 8:54 AM [facility] Lymphocytes Absolute 5.00 1.00 - 5.00 K/mcL LAB HEMETOLOGY METHOD 10/12/2024 8:54 AM [facility] Monocytes Absolute 1.23(H) 0.20 - 1.00 K/mcL LAB HEMETOLOGY METHOD 10/12/2024 8:54 AM [facility] Eosinophils Absolute 0.18 0.00 - 0.50 K/mcL LAB HEMETOLOGY METHOD 10/12/2024 8:54 AM EST [facility] Basophils Absolute 0.08 0.00 - 0.20 K[facility] LAB HEMETOLOGY METHOD 10/12/2024 8:54 AM EST [facility] Immature Granulocytes Absolute 0.05(H) 0.00 - 0.03 K[facility] LAB HEMETOLOGY METHOD 10/12/2024 8:54 AM EST [facility] Blood Venous blood specimen / Unknown Venipuncture / Unknown 10/12/2024 8:45 AM EST 10/12/2024 8:50 AM EST Vivienne Tucker MD LAB BLOOD ORDERABLES Fin al Result Performing Organization Address [facility]/ZIP Co de Phone Number [facility] [address] [place] [address], * C-reactive protein (10/12/2024 8:45 AM EST) C-Reactive Protein <0.29 <=0.50 mg/dL LAB CHEMISTRY METHOD 10/12/2024 9:20 AM EST [facility] Blood Venous blood specimen / Unknown Venipuncture / Unknown 10/12/2024 8:45 AM EST 10/12/2024 8:50 AM EST Vivienne Tucker MD LAB BLOOD ORDERABLES Fin al Result [facility] [address] [place] [address], [place] [phone] * Sedimentation rate, automated (10/12/2024 8:45 AM EST) Sed Rate 10 0 - 15 mm/hr LAB HEMETOLOGY METHOD 10/12/2024 9:01 AM EST [facility] Blood Venous blood specimen / Unknown Venipuncture / Unknown 10/12/2024 8:45 AM EST 10/12/2024 8:50 AM EST Vivienne Tucker MD LAB BLOOD ORDERABLES Fin al Result Performing Organization Address [facility]/ZIP Co de Phone Number [facility] [address] [place] [address], [place] [phone] * (ABNORMAL) Lactate, with reflex (10/11/2024 5:46 PM EST) LACTIC ACID 2.1(H) 0.4 - 2.0 mmol/L LAB CHEMISTRY METHOD 10/11/2024 6:37 PM EST [facility] Blood Venous blood specimen / Unknown Venipuncture / Unknown 10/11/2024 5:46 PM EST 10/11/2024 6:02 PM EST Blake Castillo MD LAB BLOOD ORDERABLES Final Result Performing Organization Address [facility] Co de Phone Number [facility] [address] [place] [address], [place] [phone] * Blood Culture, Peripheral Draw #2 (10/11/2024 3:54 PM EST) [facility] Culture, Blood No growth at 5 days 10/16/2024 5:01 PM EST [facility] Blood Venous blood specimen / Unknown Venipuncture / Unknown 10/11/2024 3:54 PM EST 10/11/2024 4:00 PM EST Blake Castillo MD LAB MICROBIOLOGY - GENERAL ORDERABLES Final Result Performing Organization Address City/[facility]/ZIP Co de Phone Number [facility] [address] [place] [address], [place] [phone] * (ABNORMAL) Lactate, with reflex (10/11/2024 3:47 PM EST) LACTIC ACID 2.3(H) 0.4 - 2.0 mmol/L LAB CHEMISTRY METHOD 10/11/2024 4:46 PM EST [facility] Blood Venous blood specimen / Unknown Venipuncture / Unknown 10/11/2024 3:47 PM EST 10/11/2024 4:00 PM EST Blake Castillo MD LAB BLOOD ORDERABLES Final Result Performing Organization Address [facility] Co de Phone Number [facility] [address] [place] [address], [place] [phone] * Blood Culture, Peripheral Draw #1 (10/11/2024 3:47 PM EST) [facility] Culture, Blood No growth at 5 days 10/16/2024 5:01 PM EST [facility] Blood Venous blood specimen / Unknown Venipuncture / Unknown 10/11/2024 3:47 PM EST 10/11/2024 3:58 PM EST Blake Castillo MD LAB MICROBIOLOGY - GENERAL ORDERABLES Final Result Performing Organization Address [facility] Co de Phone Number [facility] [address] [place] [address], [place] [phone] * XR Chest 2 Views (10/11/2024 1:28 PM EST) Anatomical Region Laterality Modality Body Radiographic Ariela ging 10/11/2024 1:45 PM EST Impressions 10/11/2024 1:46 PM EST No evidence of active pulmonary disease. [id number] -------- FINAL REPORT -------- Dictated By: Jamal Lin Dictated Date: 10/11/2024 13:45 ET Assigned Physician: Jamal Lin Reviewed and Electronically Signed By: Jamal Lni Signed Date: 10/11/2024 13:46 ET Workstation ID: [id number] Transcribed By: Self Edit Transcribed Date: 10/11/2024 [...] IMPRESSION: No evidence of active pulmonary disease. [id number] -------- FINAL REPORT -------- Dictated By: Jamal Lin Dictated Date: 10/11/2024 13:45 ET Assigned Physician: Jamal Lin Reviewed and Electronically Signed By: Jamal Lin Signed Date: 10/11/2024 13:46 ET Workstation ID: [id number] Transcribed By: Self Edit Transcribed Date: 10/11/2024 13:45 ET Blake Castillo MD IMG XR PROCEDURES Final Res ult * Respiratory virus panel molecular study (10/11/2024 1:23 PM EST) Adenovirus Detection by PCR Not Detected Not Detected LAB MICROBIOLOGY METHOD 10/11/2024 2:46 PM EST [facility] Influenza A PCR Not Detected Not Detected LAB MICROBIOLOGY METHOD 10/11/2024 2:46 PM EST [facility] Influenza B PCR Not Detected Not Detected LAB MICROBIOLOGY METHOD 10/11/2024 2:46 PM [facility] Coronavirus 229E Not Detected Not Detected LAB MICROBIOLOGY METHOD 10/11/2024 2:46 PM EST [facility] Coronavirus HKU1 Not Detected Not Detected LAB MICROBIOLOGY METHOD 10/11/2024 2:46 PM [facility] Coronavirus OC43 Not Detected Not Detected LAB MICROBIOLOGY METHOD 10/11/2024 2:46 PM [facility] Coronavirus NL63 Not Detected Not Detected LAB MICROBIOLOGY METHOD 10/11/2024 2:46 PM [facility] Parainfluenza Virus 1 Not Detected Not Detected LAB MICROBIOLOGY METHOD 10/11/2024 2:46 PM [facility] Parainfluenza Virus 2 Not Detected Not Detected LAB MICROBIOLOGY METHOD 10/11/2024 2:46 PM [facility] Parainfluenza Virus 3 Not Detected Not Detected LAB MICROBIOLOGY METHOD 10/11/2024 2:46 PM [facility] Parainfluenza Virus 4 Not Detected Not Detected LAB MICROBIOLOGY METHOD 10/11/2024 2:46 PM [facility] RSV PCR Not Detected Not Detected LAB MICROBIOLOGY METHOD 10/11/2024 2:46 PM [facility] Human Metapneumovirus A and B Not Detected Not Detected LAB MICROBIOLOGY METHOD 10/11/2024 2:46 PM [facility] Rhinovirus/Entero virus Not Detected Not Detected LAB MICROBIOLOGY METHOD 10/11/2024 2:46 PM [facility] Bordetella pertussis Not Detected Not Detected LAB MICROBIOLOGY METHOD 10/11/2024 2:46 PM [facility] Bordetella parapertussis Not Detected Not Detected LAB MICROBIOLOGY METHOD 10/11/2024 2:46 PM [facility] Mycoplasma pneumo by PCR Not Detected Not Detected LAB MICROBIOLOGY METHOD 10/11/2024 2:46 PM [facility] Chlamydia pneumoniae Not Detected Not Detected LAB MICROBIOLOGY METHOD 10/11/2024 2:46 PM [facility] SARS COV-2 Not Detected Not Detected LAB MICROBIOLOGY METHOD 10/11/2024 2:46 PM [facility] Swab Both anterior nares / Unknown Non-blood Collection / Unknown 10/11/2024 1:23 PM EST 10/11/2024 1:50 PM EST [facility] - 10/11/2024 2:46 PM EST Testing was performed using the Next Jump Respiratory Pathogen PCR Assay. All results must [...] GENERAL ORDERABLES Final Result Performing Organization Address [facility] Co de Phone Number [facility] [address] [place] [address], [place] [phone] * D-dimer, quantitative (10/11/2024 1:23 PM EST) Pathologist [facility] D-Dimer, Quant (D-DU) <150 <=230 ng/mL DDU LAB COAGULATION METHOD 10/11/2024 2:10 PM EST [facility] Blood Venous blood specimen / Unknown Venipuncture / Unknown 10/11/2024 1:23 PM EST 10/11/2024 1:50 PM EST [facility] - 10/11/2024 2:10 PM EST D-Dimer <230 ng/mL (D-Dimer units) is the threshold for exclusion of DVT/PE. D-Dimer may be elevated in: Critically ill, severely infected, trauma patients, DIC, acute CVA, acute NV, unstable angina, AF, old age, , and smoking. D-Dimer may be decreased with: Initiation of heparin therapy and oral anticoagulants. us Blake Castillo MD LAB BLOOD ORDERABLES Final Result Performing Organization Address [facility]/ZIP Co de Phone Number [facility] [address] [place] [address], [place] [phone] * Rapid [id number], molecular (10/10/2024 6:32 AM EST) [facility] SARS-COV-2 Screen Not Detected Not Detected METHOD [id number] 10/10/2024 8:22 AM EST [facility] Swab Both anterior nares / Unknown Non-blood Collection / Unknown 10/10/2024 6:32 AM EST 10/10/2024 8:06 AM EST [facility] LAB MICROBIOLOGY - GENERAL TIFFANIE HUGHES Final Result [facility] [address] [place] [address], [place] [phone] * Urinalysis with reflex microscopic (10/09/2024 3:42 PM EST) [facility] Specific [place] Urine 1.003 1.003 - 1.030 LAB URINALYSIS - AUTOMATED METHOD 10/09/2024 4:15 PM [facility] pH, Urine 7.0 5.0 - 8.0 pH LAB URINALYSIS - AUTOMATED METHOD 10/09/2024 4:15 PM [facility] Leukocytes, Urine Negative Negative LAB URINALYSIS - AUTOMATED METHOD 10/09/2024 4:15 PM [facility] Nitrite, Urine Negative Negative LAB URINALYSIS - AUTOMATED METHOD 10/09/2024 4:15 PM [facility] Protein, Urine Negative <=Trace mg/dL LAB URINALYSIS - AUTOMATED METHOD 10/09/2024 4:15 PM [facility] Glucose, Urine Negative Negative mg/dL LAB URINALYSIS - AUTOMATED METHOD 10/09/2024 4:15 PM [facility] Ketones, Urine Negative Negative mg/dL LAB URINALYSIS - AUTOMATED METHOD 10/09/2024 4:15 PM [facility] Urobilinogen, Urine 0.2 0.2 - 1.0 mg/dL LAB URINALYSIS - AUTOMATED METHOD 10/09/2024 4:15 PM EST [facility] Bilirubin, Urine Negative Negative LAB URINALYSIS - AUTOMATED METHOD 10/09/2024 4:15 PM [facility] Blood, Urine Negative Negative LAB URINALYSIS - AUTOMATED METHOD 10/09/2024 4:15 PM [facility] Urine Urine specimen obtained by clean catch procedure / Unknown Non-blood Collection / Unknown 10/09/2024 3:42 PM EST 10/09/2024 4:06 PM EST James Moses MD LAB URINE ORDERABLES Francisca l Result Performing Organization Address [facility] Co de Phone Number [facility] [address] [place] [address], [place] [phone] * Methadone, urine (10/09/2024 1:14 PM EST) Methadone Screen, Urine Negative Negative LAB CHEMISTRY METHOD 10/09/2024 2:10 PM EST [facility] Comment: Assay cutoff 300 ng/mL Semi-quantitative [...] ORDERABLES Francisca l Result Performing Organization Address City/[facility]/ZIP Co de Phone Number [facility] [address] [place] [address], [place] [phone] * Phencyclidine, urine (10/09/2024 1:14 PM EST) PCP Scrn, Ur Negative Negative LAB CHEMISTRY METHOD 10/09/2024 2:17 PM EST [facility] Comment: Assay cutoff 25 ng/mL Semi-quantitative assay for screening purposes only. Unconfirmed screening result should not be used for non-medical purposes. *ALTERNATE METHOD CONFIRMATION DONE UPON REQUEST ONLY* Urine Urine specimen obtained by clean catch procedure / Unknown Non-blood Collection / Unknown 10/09/2024 1:14 PM EST 10/09/2024 1:30 PM EST James Moses MD LAB URINE ORDERABLES Francisca l Result Performing Organization Address [facility]/ZIP Co de Phone Number [facility] [address] [place] [address], [place] [phone] * Buprenorphine screen, urine (10/09/2024 1:14 PM EST) Buprenorphine Screen Urine Negative Negative LAB CHEMISTRY METHOD 10/09/2024 2:10 PM EST [facility] Urine Urine specimen obtained by clean catch procedure / Unknown Non-blood Collection / Unknown 10/09/2024 1:14 PM EST 10/09/2024 1:30 PM EST Narrative [facility] - 10/09/2024 2:10 PM EST Assay cutoff 5 ng/mL Semi-quantitative assay for screening purposes only. Unconfirmed screening result should not be used for non-medical purposes. *ALTERNATE METHOD CONFIRMATION DONE UPON REQUEST ONLY* James Moses MD LAB URINE ORDERABLES Francisca l Result Performing Organization Address [facility]/ZIP Co de Phone Number [facility] [address] [place] [address], [place] [phone] * (ABNORMAL) Drug abuse screen 8a panel, urine (10/09/2024 1:14 PM EST) Amphetamine Screen, Ur Negative Negative LAB CHEMISTRY METHOD 2:17 PM EST [facility] Comment:Certain OTC medicati ons containing ephedrine, phenylephrine, pseudoephedrine and phenylpropanolamine can cause false positive results. Barbiturate Screen, Ur Negative Negative LAB CHEMISTRY METHOD 5 2:17 PM [facility] Benzodiazepine Screen, Ur Negative Negative LAB CHEMISTRY METHOD 5 2:17 PM [facility] Cocaine Screen, Ur Negative Negative LAB CHEMISTRY METHOD 5 2:17 PM [facility] Opiate Screen, Ur Negative Negative LAB CHEMISTRY METHOD 5 2:17 PM [facility] Cannabinoid (THC) Screen, Ur Positive(A ) Negative LAB CHEMISTRY METHOD 5 2:17 PM [facility] Comment:Specimens from patie nts taking pantoprazole sodium (Protonix) have been shown to produce false positive results. Oxycodone Screen, Ur Negative Negative LAB CHEMISTRY METHOD 5 2:17 PM [facility] Fentanyl, Ur Negative Negative LAB CHEMISTRY METHOD 5 2:17 PM [facility] Urine Urine specimen obtained by clean catch procedure / Unknown Non-blood Collection / Unknown 10/09/2024 1:14 PM EST 10/09/2024 1:30 PM EST [facility] - 10/09/2024 2:17 PM EST Assay [...] MD LAB URINE ORDERABLES Francisca l Result [facility] [address] [place] [address], [place] [phone] * Thyroid stimulating hormone (TSH) (10/09/2024 11:10 AM EST) Pathologist [facility] TSH 1.22 0.40 - 4.00 mcIU/mL LAB CHEMISTRY METHOD 10/11/2024 4:08 PM [facility] Blood Venous blood specimen / Unknown Venipuncture / Unknown 10/09/2024 11:10 AM EST 10/09/2024 11:17 AM EST Blake Castillo MD LAB BLOOD ORDERABLES Final Result Performing Organization Address City/[facility]/ZIP Co de Phone Number [facility] [address] [place] [address], [place] [phone] * (ABNORMAL) CBC auto differential (10/09/2024 11:10 AM EST) [facility] WBC 16.4(H) 4.8 - 10.8 K/mcL LAB HEMETOLOGY METHOD 10/09/2024 11:24 AM [facility] RBC 5.60(H) 4.50 - 5.50 M/mcL LAB HEMETOLOGY METHOD 10/09/2024 11:24 AM [facility] Hemoglobin 17.1 13.5 - 17.5 g/dL LAB HEMETOLOGY METHOD 10/09/2024 11:24 AM [facility] Hematocrit 50.4 42.0 - 54.0 % LAB HEMETOLOGY METHOD 10/09/2024 11:24 AM [facility] MCV 89.7 79.0 - 98.0 FL LAB HEMETOLOGY METHOD 10/09/2024 11:24 AM [facility] MCH 30.4 27.0 - 32.0 pcg LAB HEMETOLOGY METHOD 10/09/2024 11:24 AM [facility] MCHC 33.9 32.0 - 37.0 g/dL LAB HEMETOLOGY METHOD 10/09/2024 11:24 AM [facility] RDW 12.5 11.0 - 15.0 % LAB HEMETOLOGY METHOD 10/09/2024 11:24 AM [facility] Platelets 282 130 - 400 K/mcL LAB HEMETOLOGY METHOD 10/09/2024 11:24 AM [facility] MPV 10.9 7.0 - 11.0 FL LAB HEMETOLOGY METHOD 10/09/2024 11:24 AM [facility] NRBC 0.0 <1.0 % LAB HEMETOLOGY METHOD 10/09/2024 11:24 AM [facility] NRBC Absolute 0.00 <0.10 K/mcL LAB HEMETOLOGY METHOD 10/09/2024 11:24 AM [facility] Neutrophils Relative 72.2 % LAB HEMETOLOGY METHOD 10/09/2024 11:24 AM [facility] Lymphocytes Relative 20.0 % LAB HEMETOLOGY METHOD 10/09/2024 11:24 AM [facility] Monocytes Relative 6.7 % LAB HEMETOLOGY METHOD 10/09/2024 11:24 AM [facility] Eosinophils Relative 0.2 % LAB HEMETOLOGY METHOD 10/09/2024 11:24 AM [facility] Basophils Relative 0.4 % LAB HEMETOLOGY METHOD 10/09/2024 11:24 AM [facility] Immature Granulocytes Relative 0.5 % LAB HEMETOLOGY METHOD 10/09/2024 11:24 AM [facility] Neutrophils Absolute 11.82(H) 1.50 - 7.00 K/mcL LAB HEMETOLOGY METHOD 10/09/2024 11:24 AM EST [facility] Lymphocytes Absolute 3.28 1.00 - 5.00 [facility] HEMETOLOGY METHOD 10/09/2024 11:24 AM EST [facility] Monocytes Absolute 1.10(H) 0.20 - 1.00 K/mcL LAB HEMETOLOGY METHOD 10/09/2024 11:24 AM EST [facility] Eosinophils Absolute 0.03 0.00 - 0.50 [facility] HEMETOLOGY METHOD 10/09/2024 11:24 AM EST [facility] Basophils Absolute 0.07 0.00 - 0.20 [facility] HEMETOLOGY METHOD 10/09/2024 11:24 AM [facility] Immature Granulocytes Absolute 0.08(H) 0.00 - 0.03 [facility] HEMETOLOGY METHOD 10/09/2024 11:24 AM EST [facility] Blood Venous blood specimen / Unknown Venipuncture / Unknown 10/09/2024 11:10 AM EST 10/09/2024 11:17 AM EST us James Moses MD LAB BLOOD ORDERABLES Francisca l Result [facility] [address] [place] [address], * (ABNORMAL) Salicylate level (10/09/2024 11:10 AM EST) Salicylate Level <1.7(L) 2.0 - 29.0 mg/dL LAB CHEMISTRY METHOD 10/09/2024 12:33 PM EST [facility] Blood Venous blood specimen / Unknown Venipuncture / Unknown 10/09/2024 11:10 AM EST 10/09/2024 11:17 AM EST James Moses MD LAB BLOOD ORDERABLES Francisca l Result Performing Organization Address [facility]/ZIP Co de Phone Number [facility] [address] [place] [address], [place] [phone] * (ABNORMAL) Acetaminophen level (10/09/2024 11:10 AM EST) Acetaminophen Level <2.0(L) 10.0 - 30.0 mcg/mL LAB CHEMISTRY METHOD 10/09/2024 12:38 PM EST [facility] Blood Venous blood specimen / Unknown Venipuncture / Unknown 10/09/2024 11:10 AM EST 10/09/2024 11:17 AM EST James Moses MD LAB BLOOD ORDERABLES Francisca l Result Performing Organization Address [facility] Co de Phone Number [facility] [address] [place] [address], [place] [phone] * Ethanol (10/09/2024 11:10 AM EST) Ethanol Level <3 0 - 10 mg/dL LAB CHEMISTRY METHOD 10/09/2024 12:38 PM EST [facility] Blood Venous blood specimen / Unknown Venipuncture / Unknown 10/09/2024 11:10 AM EST 10/09/2024 11:17 AM EST James Moses MD LAB BLOOD ORDERABLES Francisca l Result Performing Organization Address [facility]/ZIP Co de Phone Number [facility] [address] [place] [address], [place] [phone] * (ABNORMAL) Comprehensive metabolic panel (10/09/2024 11:10 AM EST) Sodium 136 133 - 145 mmol/L LAB CHEMISTRY METHOD 10/09/2024 12:33 PM EST [facility] Potassium 3.7 3.5 - 5.5 mmol/L LAB CHEMISTRY METHOD 10/09/2024 12:33 PM [facility] Chloride 104 96 - 110 mmol/L LAB CHEMISTRY METHOD 10/09/2024 12:33 PM [facility] CO2 25 21 - 32 mmol/L LAB CHEMISTRY METHOD 10/09/2024 12:33 PM [facility] Anion Gap 7 3 - 11 LAB CHEMISTRY METHOD 10/09/2024 12:33 PM [facility] Glucose 137(H) 70 - 100 mg/dL LAB CHEMISTRY METHOD 10/09/2024 12:33 PM [facility] BUN 13 5 - 25 mg/dL LAB CHEMISTRY METHOD 10/09/2024 12:33 PM [facility] Creatinine 0.85 0.70 - 1.30 mg/dL LAB CHEMISTRY METHOD 10/09/2024 12:33 PM [facility] eGFR 126 >=60 mL/min/1. 73m2 LAB CHEMISTRY METHOD 10/09/2024 12:33 PM [facility] Comment:Calculation based on the??Chronic Kidney Disease Epidemiology Collaboration (CKD-EPI) equation refit??without adjustment for race. BUN/Creatinine Ratio 15.3 LAB CHEMISTRY METHOD 10/09/2024 12:33 PM [facility] Calcium 9.4 8.5 - 10.5 mg/dL LAB CHEMISTRY METHOD 10/09/2024 12:33 PM [facility] AST (SGOT) 31 10 - 42 unit/L LAB CHEMISTRY METHOD 10/09/2024 12:33 PM [facility] ALT (SGPT) 47 10 - 60 unit/L LAB CHEMISTRY METHOD 10/09/2024 12:33 PM [facility] Alkaline Phosphatase 91 42 - 121 unit/L LAB CHEMISTRY METHOD 10/09/2024 12:33 PM [facility] Total Protein 8.3(H) 6.0 - 8.0 g/dL LAB CHEMISTRY METHOD 10/09/2024 12:33 PM EST [facility] Albumin 4.6 3.2 - 5.0 g/dL LAB CHEMISTRY METHOD 10/09/2024 12:33 PM EST [facility] Total Bilirubin 0.9 0.0 - 1.4 mg/dL LAB CHEMISTRY METHOD 10/09/2024 12:33 PM EST [facility] Blood Venous blood specimen / Unknown Venipuncture / Unknown 10/09/2024 11:10 AM EST 10/09/2024 11:17 AM EST James Moses MD LAB BLOOD ORDERABLES Francisca l Result Performing Organization Address [facility] Co de Phone Number [facility] [address] [place] [address], [place] [phone] * ECG 12 lead (10/09/2024 11:08 AM EST) Ventricular Rate ECG 128 BPM G[facility] Atrial Rate 128 BPM GEM[facility] P-R Interval 132 ms GEMUSE QRS Duration 80 ms GEMUSE Q-T Interval 300 ms GEMUSE QTc 438 ms GEMUSE P Wave [place] 56 degrees GEMUSE R [place] 58 degrees GEMUSE T [place] 24 degrees GEMUSE ECG Interpretation Sinus tachycardia Cannot rule out Inferior infarct , age undetermined Abnormal ECG No previous ECGs available Confirmed by CATHERINE GARZON ([id number]) on 10/09/2024 9:39:21 PM GEMUSE 10/09/2024 11:0 8 AM EST 10/09/2024 9:39 PM EST us James Moses MD ECG ORDERABLES Final Res ult Performing Organization Address [facility]/ZIP Co de Phone Number GEMUSE * ECG-Annotated [...] Gates RN) [phone] (Given - Provider: Saira Ngael, RN)2057 (Given - Provider: Barbara Bales, RN) [phone] (Given - Provider: Juanis Rodriguez RN) PRN [...] First Orde red Date IP 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
--- OUTSIDE RECORDS SUMMARY | 2024-11-14 13:04 | XMS_ITS | Clinical Summary ---
Author Organization [facility] Address [address] [place] [address] Phone Care Team Providers Care General Production Manager Name Role Phone Physician, No Pcp Primary Care Provider Unavaila ble Allergies No known active allergies Medications diphenhydrAMINE (BENADRYL) 25 mg tablet Take 1 capsule by mouth every 6 hours as needed for anxiety 24 tablet 10/27/2024 Active Active Problems No known active problems Encounters Date Type Department Care Team Description 10/27/2024 9:50 PM EST - 10/27/2024 11:58 PM [facility] Emergency [address] [place] [address] [phone] Anxiety (Primary Dx) Discharge Disposition: Home or Self Care 10/09/2024 11:17 AM EST - 10/17/2024 11:39 AM [facility] Emergency [address] [place] [address] [phone] James Moses MD Vatrenko, Konstantin, MD Cheng, Ting Ho Danny, DO Garvin, Meredith Kate, MD Landry, Jonathan P, MD Kim, Tae Hyong, DO Chambers, Patrick, MD Goebel, Mathew, MD Millay, Scot A, MD Cauchon, Matthew C, DO Psychosis, unspecified psychosis type (CMS/HCC) (Primary Dx) Discharge Disposition: [facility] from Last 3 Months Medical History Medical History Date Comments No known health problems per pat ient Social History Tobacco Use Types Packs/Day Years [...] Orientation Straight 10/09/2024 3: 51 PM EST Obstetrics History Last Filed Vital Signs Vital Sign Reading [...] Mass Index 46.26 10/27/2024 9:20 PM EST Plan of Treatment Health Maintenance Due Date Last Done Comments HPV Vaccines (1 - Male 3-dos e series) 2017 Meningococcal B Vacine (1 of 2 - Standard) 2018 DTaP,Tdap,and Td Vaccines (1 - Tdap) 2021 Hepatitis B Vaccines (1 of 3 - 19+ 3-dose series) 2021 COVID-19 Vaccine (1 - 2023-2 5 season) 2024 Depression Screening 10/09/2024 HIV Screening 10/09/2024 Hepatitis C Screening 10/09/2024 Social Influencers of Health Screening 10/09/2024 Influenza Vaccine Completed 10/17/2024 HIB Vaccines Aged Out No longer eligi ble based on patient's age to complete this topic Hepatitis A Vaccines Aged Out No long er eligible based on patient's age to complete this topic IPV Vaccines Aged Out No longer eligi ble based on patient's age to complete this topic MMR Vaccines Aged Out No longer eligi ble based on patient's age to complete this topic Meningococcal ACWY Vaccine Aged Out N o longer eligible based on patient's age to complete this topic Pneumococcal Vaccine: Pediat rics (0 to 5 Years) and At-Risk Patients (6 to 64 Years) Aged Out No longer eligi ble based on patient's age to complete this topic RSV Immunization Patients Un elia 20 months Aged Out No longer eligible b ased on patient's age to complete this topic Varicella Vaccines Aged Out No longer eligible based on patient's age to complete this topic Procedures Procedure Name Priority Date/Time Associated Diagnosis Comments ECG 12-LEAD STAT 10/13/2024 7:47 PM EST ECG 12-LEAD STAT 10/12/2024 9:19 AM EST COMPREHENSIVE METABOLIC PANEL STAT 10/12/2024 8:45 AM EST CBC WITH AUTO DIFFERENTIAL STAT 10/12/2024 8:45 AM EST C-REACTIVE PROTEIN STAT 10/12/2024 8: 45 AM EST SEDIMENTATION RATE STAT 10/12/2024 8: 45 AM EST CBC AND DIFFERENTIAL STAT 10/12/2024 8:45 AM EST LACTATE, WITH REFLEX Timed 10/11/2024 5:46 PM EST CULTURE BLOOD STAT 10/11/2024 3:54 PM EST LACTATE, WITH REFLEX STAT 10/11/2024 3:47 PM EST CULTURE BLOOD STAT 10/11/2024 3:47 PM EST XR CHEST 2 VIEWS STAT 10/11/2024 1:28 PM EST D-DIMER STAT 10/11/2024 1:23 PM EST RESPIRATORY VIRUS PANEL MOLECULAR STUDY STAT 10/11/2024 1:23 PM EST RAPID [id number] SCREENING, MOLECULAR STAT 10/10/2024 6:32 AM EST URINALYSIS WITH REFLEX MICROSCOPIC STAT 10/09/2024 3:42 PM EST URINALYSIS WITH REFLEX MICROSCOPIC STAT 10/09/2024 3:42 PM EST METHADONE SCREEN, URINE STAT 10/09/2024 1:14 PM EST PHENCYCLIDINE, URINE STAT 10/09/2024 1:14 PM EST BUPRENORPHINE SCREEN, URINE STAT 10/09/2024 1:14 PM EST DRUG ABUSE SCREEN 8A PANEL, URINE STAT 10/09/2024 1:14 PM EST THYROID STIMULATING HORMONE STAT Add-on 10/09/2024 11:10 AM EST CBC WITH AUTO DIFFERENTIAL STAT 10/09/2024 11:10 AM EST SALICYLATE LEVEL STAT 10/09/2024 11:1 0 AM EST ACETAMINOPHEN LEVEL STAT 10/09/2024 1 1:10 AM EST ETHANOL STAT 10/09/2024 11:10 AM EST COMPREHENSIVE METABOLIC PANEL STAT 10/09/2024 11:10 AM EST CBC AND DIFFERENTIAL STAT 10/09/2024 11:10 AM EST ECG 12-LEAD STAT 10/09/2024 11:08 AM EST ECG ANNOTATED 10/09/2024 ECG ANNOTATED 10/09/2024 ECG ANNOTATED 10/09/2024 from Last 3 Months Results * ECG 12 lead (10/13/2024 7:47 PM EST) Only the most recent of3 resultswithin the time period is included. Ventricular Rate ECG 102 BPM GEMUSE Atrial Rate 102 BPM GEMUSE P-R Interval 124 ms GEMUSE QRS Duration 86 ms GEMUSE Q-T Interval 334 ms GEMUSE QTc 435 ms GEMUSE P Wave Menard 40 degrees GEMUSE R Menard 67 degrees GEMUSE T Menard 27 degrees GEMUSE ECG Interpretation Sinus tachycardia When compared with ECG of 12-OCT-2024 09:19, Nonspecific T wave abnormality no longer evident in Lateral leads Confirmed by FERNY DANGELO ([id number]) on 10/14/2024 12:43:54 AM GEMUSE 10/13/2024 7:47 PM EST 10/14/2024 12:43 AM EST us Declan Hawkins MD ECG ORDERABLES Final Result GEMUSE * (ABNORMAL) CBC auto differential (10/12/2024 8:45 AM EST) Only the most recent of2 resultswithin the time period is included. WBC 14.5(H) 4.8 - 10.8 K/mcL LAB HEMETOLOGY METHOD 10/12/2024 8:54 AM [facility] RBC 5.10 4.50 - 5.50 M/mcL LAB HEMETOLOGY METHOD 10/12/2024 8:54 AM [facility] Hemoglobin 15.5 13.5 - 17.5 g/dL LAB HEMETOLOGY METHOD 10/12/2024 8:54 AM [facility] Hematocrit 46.2 42.0 - 54.0 % LAB HEMETOLOGY METHOD 10/12/2024 8:54 AM [facility] MCV 90.8 79.0 - 98.0 FL LAB HEMETOLOGY METHOD 10/12/2024 8:54 AM [facility] MCH 30.5 27.0 - 32.0 pcg LAB HEMETOLOGY METHOD 10/12/2024 8:54 AM [facility] MCHC 33.5 32.0 - 37.0 g/dL LAB HEMETOLOGY METHOD 10/12/2024 8:54 AM [facility] RDW 12.9 11.0 - 15.0 % LAB HEMETOLOGY METHOD 10/12/2024 8:54 AM [facility] Platelets 220 130 - 400 K/mcL LAB HEMETOLOGY METHOD 10/12/2024 8:54 AM [facility] MPV 10.5 7.0 - 11.0 FL LAB HEMETOLOGY METHOD 10/12/2024 8:54 AM [facility] NRBC 0.0 <1.0 % LAB HEMETOLOGY METHOD 10/12/2024 8:54 AM [facility] NRBC Absolute 0.00 <0.10 K/mcL LAB HEMETOLOGY METHOD 10/12/2024 8:54 AM [facility] Neutrophils Relative 54.8 % LAB HEMETOLOGY METHOD 10/12/2024 8:54 AM [facility] Lymphocytes Relative 34.6 % LAB HEMETOLOGY METHOD 10/12/2024 8:54 AM [facility] Monocytes Relative 8.5 % LAB HEMETOLOGY METHOD 10/12/2024 8:54 AM [facility] Eosinophils Relative 1.2 % LAB HEMETOLOGY METHOD 10/12/2024 8:54 AM [facility] Basophils Relative 0.6 % LAB HEMETOLOGY METHOD 10/12/2024 8:54 AM [facility] Immature Granulocytes Relative 0.3 % LAB HEMETOLOGY METHOD 10/12/2024 8:54 AM [facility] Neutrophils Absolute 7.92(H) 1.50 - 7.00 K/mcL LAB HEMETOLOGY METHOD 10/12/2024 8:54 AM [facility] Lymphocytes Absolute 5.00 1.00 - 5.00 K/mcL LAB HEMETOLOGY METHOD 10/12/2024 8:54 AM [facility] Monocytes Absolute 1.23(H) 0.20 - 1.00 K/mcL LAB HEMETOLOGY METHOD 10/12/2024 8:54 AM EST [facility] Eosinophils Absolute 0.18 0.00 - 0.50 K/[facility] LAB HEMETOLOGY METHOD 10/12/2024 8:54 AM EST [facility] Basophils Absolute 0.08 0.00 - 0.20 K/[facility] LAB HEMETOLOGY METHOD 10/12/2024 8:54 AM EST [facility] Immature Granulocytes Absolute 0.05(H) 0.00 - 0.03 K/[facility] LAB HEMETOLOGY METHOD 10/12/2024 8:54 AM EST [facility] Blood Venous blood specimen / Unknown Venipuncture / Unknown 10/12/2024 8:45 AM EST 10/12/2024 8:50 AM EST Vivienne Tucker MD LAB BLOOD ORDERABLES Fin al Result Performing Organization Address City/[facility]/ZIP Co de Phone Number [facility] [address] [place] [address], [place] [phone] * Sedimentation rate, automated (10/12/2024 8:45 AM EST) Pathologist [facility] Sed Rate 10 0 - 15 mm/hr LAB HEMETOLOGY METHOD 10/12/2024 9:01 AM EST [facility] Blood Venous blood specimen / Unknown Venipuncture / Unknown 10/12/2024 8:45 AM EST 10/12/2024 8:50 AM EST Vivienne Tucker MD LAB BLOOD ORDERABLES Fin al Result Performing Organization Address City/[facility]/ZIP Co de Phone Number [facility] [address] [place] [address], [place] [phone] * C-reactive protein (10/12/2024 8:45 AM EST) Pathologist [facility] C-Reactive Protein <0.29 <=0.50 mg/dL LAB CHEMISTRY METHOD 10/12/2024 9:20 AM [facility] Blood Venous blood specimen / Unknown Venipuncture / Unknown 10/12/2024 8:45 AM EST 10/12/2024 8:50 AM EST us Vivienne Tucker MD LAB BLOOD ORDERABLES Fin al Result [facility] [address] [place] [address], [place] [phone] * (ABNORMAL) Comprehensive metabolic panel (10/12/2024 8:45 AM EST) Only the most recent of2 resultswithin the time period is included. Sodium 141 133 - 145 mmol/L LAB CHEMISTRY METHOD 10/12/2024 9:20 AM [facility] Potassium 3.7 3.5 - 5.5 mmol/L LAB CHEMISTRY METHOD 10/12/2024 9:20 AM [facility] Chloride 110 96 - 110 mmol/L LAB CHEMISTRY METHOD 10/12/2024 9:20 AM [facility] CO2 28 21 - 32 mmol/L LAB CHEMISTRY METHOD 10/12/2024 9:20 AM [facility] Anion Gap 3 3 - 11 LAB CHEMISTRY METHOD 10/12/2024 9:20 AM [facility] Glucose 104(H) 70 - 100 mg/dL LAB CHEMISTRY METHOD 10/12/2024 9:20 AM [facility] BUN 12 5 - 25 mg/dL LAB CHEMISTRY METHOD 10/12/2024 9:20 AM [facility] Creatinine 0.82 0.70 - 1.30 mg/dL LAB CHEMISTRY METHOD 10/12/2024 9:20 AM [facility] eGFR 127 >=60 mL/min/1. 73m2 LAB CHEMISTRY METHOD 10/12/2024 9:20 AM [facility] Comment:Calculation based on the??Chronic Kidney Disease Epidemiology Collaboration (CKD-EPI) equation refit??without adjustment for race. BUN/Creatinine Ratio 14.6 LAB CHEMISTRY METHOD 10/12/2024 9:20 AM [facility] Calcium 9.0 8.5 - 10.5 mg/dL LAB CHEMISTRY METHOD 10/12/2024 9:20 AM [facility] AST (SGOT) 26 10 - 42 unit/L LAB CHEMISTRY METHOD 10/12/2024 9:20 AM [facility] ALT (SGPT) 54 10 - 60 unit/L LAB CHEMISTRY METHOD 10/12/2024 9:20 AM [facility] Alkaline Phosphatase 84 42 - 121 unit/L LAB CHEMISTRY METHOD 10/12/2024 9:20 AM [facility] Total Protein 7.1 6.0 - 8.0 g/dL LAB CHEMISTRY METHOD 10/12/2024 9:20 AM [facility] Albumin 3.9 3.2 - 5.0 g/dL LAB CHEMISTRY METHOD 10/12/2024 9:20 AM [facility] Total Bilirubin 1.0 0.0 - 1.4 mg/dL LAB CHEMISTRY METHOD 10/12/2024 9:20 AM [facility] Blood Venous blood specimen / Unknown Venipuncture / Unknown 10/12/2024 8:45 AM EST 10/12/2024 8:50 AM EST us Vivienne Tucker MD LAB BLOOD ORDERABLES Fin al Result [facility] [address] [place] [address], * (ABNORMAL) Lactate, with reflex (10/11/2024 5:46 PM EST) Only the most recent of2 resultswithin the time period is included. LACTIC ACID 2.1(H) 0.4 - 2.0 mmol/L LAB CHEMISTRY METHOD 10/11/2024 6:37 PM EST [facility] Blood Venous blood specimen / Unknown Venipuncture / Unknown 10/11/2024 5:46 PM EST 10/11/2024 6:02 PM EST Blake Castillo MD LAB BLOOD ORDERABLES Final Result Performing Organization Address [facility] de Phone Number [facility] [address] [place] [address], [place] [phone] * Blood Culture, Peripheral Draw #2 (10/11/2024 3:54 PM EST) Only the most recent of2 resultswithin the time period is included. Culture, Blood No growth at 5 days 10/16/2024 5:01 PM EST [facility] Blood Venous blood specimen / Unknown Venipuncture / Unknown 10/11/2024 3:54 PM EST 10/11/2024 4:00 PM EST Blake Castillo MD LAB MICROBIOLOGY - GENERAL ORDERABLES Final Result Performing Organization Address [facility] de Phone Number [facility] [address] [place] [address], [place] [phone] * XR Chest 2 Views (10/11/2024 1:28 PM EST) Anatomical Region Laterality Modality Body Radiographic Ariela ging 10/11/2024 1:45 PM EST Impressions 10/11/2024 1:46 PM EST No evidence of active pulmonary disease. [id number] -------- FINAL REPORT -------- Dictated By: Jamal Lin Dictated Date: 10/11/2024 13:45 ET Assigned Physician: Jamal Lin Reviewed and Electronically Signed By: Jamal Lin Signed Date: 10/11/2024 13:46 ET Workstation ID: [id number] Transcribed By: Self Edit Transcribed Date: 10/11/2024 [...] IMPRESSION: No evidence of active pulmonary disease. [id number] -------- FINAL REPORT -------- Dictated By: Jamal Lin Dictated Date: 10/11/2024 13:45 ET Assigned Physician: Jamal Lin Reviewed and Electronically Signed By: Jamal Lin Signed Date: 10/11/2024 13:46 ET Workstation ID: [id number] Transcribed By: Self Edit Transcribed Date: 10/11/2024 [...] PM EST [facility] Coronavirus 229E Not Detected Not Detected LAB MICROBIOLOGY METHOD 10/11/2024 2:46 PM EST [facility] Coronavirus HKU1 Not Detected Not Detected LAB MICROBIOLOGY METHOD 10/11/2024 2:46 PM [facility] Coronavirus OC43 Not Detected Not Detected LAB MICROBIOLOGY METHOD 10/11/2024 2:46 PM [facility] Coronavirus NL63 Not Detected Not Detected LAB MICROBIOLOGY METHOD 10/11/2024 2:46 PM [facility] Parainfluenza Virus 1 Not Detected Not Detected LAB MICROBIOLOGY METHOD 10/11/2024 2:46 PM [facility] Parainfluenza Virus 2 Not Detected Not Detected LAB MICROBIOLOGY METHOD 10/11/2024 2:46 PM [facility] Parainfluenza Virus 3 Not Detected Not Detected LAB MICROBIOLOGY METHOD 10/11/2024 2:46 PM [facility] Parainfluenza Virus 4 Not Detected Not Detected LAB MICROBIOLOGY METHOD 10/11/2024 2:46 PM [facility] RSV PCR Not Detected Not Detected LAB MICROBIOLOGY METHOD 10/11/2024 2:46 PM [facility] Human Metapneumovirus A and B Not Detected Not Detected LAB MICROBIOLOGY METHOD 10/11/2024 2:46 PM [facility] Rhinovirus/Entero virus Not Detected Not Detected LAB MICROBIOLOGY METHOD 10/11/2024 2:46 PM [facility] Bordetella pertussis Not Detected Not Detected LAB MICROBIOLOGY METHOD 10/11/2024 2:46 PM [facility] Bordetella parapertussis Not Detected Not Detected LAB MICROBIOLOGY METHOD 10/11/2024 2:46 PM [facility] Mycoplasma pneumo by PCR Not Detected Not Detected LAB MICROBIOLOGY METHOD 10/11/2024 2:46 PM [facility] Chlamydia pneumoniae Not Detected Not Detected LAB MICROBIOLOGY METHOD 10/11/2024 2:46 PM [facility] SARS COV-2 Not Detected Not Detected LAB MICROBIOLOGY METHOD 10/11/2024 2:46 PM [facility] Swab Both anterior nares / Unknown Non-blood Collection / Unknown 10/11/2024 1:23 PM EST 10/11/2024 1:50 PM EST Mana [facility] - 10/11/2024 2:46 PM EST Testing was performed using the [employer] Respiratory Pathogen PCR Assay. All results must [...] GENERAL ORDERABLES Final Result Performing Organization Address [facility]/ZIP Co de Phone Number [facility] [address] [place] [address], * D-dimer, quantitative (10/11/2024 1:23 PM EST) D-Dimer, Quant (D-DU) <150 <=230 ng/mL DDU LAB COAGULATION METHOD 10/11/2024 2:10 PM EST [facility] Blood Venous blood specimen / Unknown Venipuncture / Unknown 10/11/2024 1:23 PM EST 10/11/2024 1:50 PM EST Mana [facility] - 10/11/2024 2:10 PM EST D-Dimer <230 ng/mL (D-Dimer units) is the threshold for exclusion of DVT/PE. D-Dimer may be elevated in: Critically ill, severely infected, trauma patients, DIC, acute CVA, acute WI, unstable angina, AF, old age, , and smoking. D-Dimer may be decreased with: Initiation of heparin therapy and oral anticoagulants. us Blake Castillo MD LAB BLOOD ORDERABLES Final Result Performing Organization Address [facility]/ZIP Co de Phone Number [facility] [address] [place] [address], [place] [phone] * Rapid [id number], molecular (10/10/2024 6:32 AM EST) [facility] SARS-COV-2 Screen Not Detected Not Detected METHOD [id number] 10/10/2024 8:22 AM EST [facility] Swab Both anterior nares / Unknown Non-blood Collection / Unknown 10/10/2024 6:32 AM EST 10/10/2024 8:06 AM EST Oanh [facility] LAB MICROBIOLOGY - GENERAL TIFFANIE HUGHES Final Result [facility] [address] [place] [address], [place] [phone] * Urinalysis with reflex microscopic (10/09/2024 3:42 PM EST) [facility] Specific [place] Urine 1.003 1.003 - 1.030 LAB URINALYSIS - AUTOMATED METHOD 10/09/2024 4:15 PM [facility] pH, Urine 7.0 5.0 - 8.0 pH LAB URINALYSIS - AUTOMATED METHOD 10/09/2024 4:15 PM [facility] Leukocytes, Urine Negative Negative LAB URINALYSIS - AUTOMATED METHOD 10/09/2024 4:15 PM [facility] Nitrite, Urine Negative Negative LAB URINALYSIS - AUTOMATED METHOD 10/09/2024 4:15 PM [facility] Protein, Urine Negative <=Trace mg/dL LAB URINALYSIS - AUTOMATED METHOD 10/09/2024 4:15 PM [facility] Glucose, Urine Negative Negative mg/dL LAB URINALYSIS - AUTOMATED METHOD 10/09/2024 4:15 PM [facility] Ketones, Urine Negative Negative mg/dL LAB URINALYSIS - AUTOMATED METHOD 10/09/2024 4:15 PM EST [facility] Urobilinogen, Urine 0.2 0.2 - 1.0 mg/dL LAB URINALYSIS - AUTOMATED METHOD 10/09/2024 4:15 PM [facility] Bilirubin, Urine Negative Negative LAB URINALYSIS - AUTOMATED METHOD 10/09/2024 4:15 PM [facility] Blood, Urine Negative Negative LAB URINALYSIS - AUTOMATED METHOD 10/09/2024 4:15 PM [facility] Urine Urine specimen obtained by clean catch procedure / Unknown Non-blood Collection / Unknown 10/09/2024 3:42 PM EST 10/09/2024 4:06 PM EST us James Moses MD LAB URINE ORDERABLES Francisca nur Result [facility] [address] [place] [address], [place] [phone] * (ABNORMAL) Drug abuse screen 8a panel, urine (10/09/2024 1:14 PM EST) [facility] Signature Amphetamine Screen, Ur Negative Negative LAB CHEMISTRY METHOD 5 2:17 PM [facility] Comment:Certain OTC medicati ons containing ephedrine, phenylephrine, pseudoephedrine and phenylpropanolamine can cause false positive results. Barbiturate Screen, Ur Negative Negative LAB CHEMISTRY METHOD 5 2:17 PM [facility] Benzodiazepine Screen, Ur Negative Negative LAB CHEMISTRY METHOD 5 2:17 PM [facility] Cocaine Screen, Ur Negative Negative LAB CHEMISTRY METHOD 5 2:17 PM [facility] Opiate Screen, Ur Negative Negative LAB CHEMISTRY METHOD 5 2:17 PM [facility] Cannabinoid (THC) Screen, Ur Positive(A ) Negative LAB CHEMISTRY METHOD 5 2:17 PM EST [facility] Comment:Specimens from patie nts taking pantoprazole sodium (Protonix) have been shown to produce false positive results. Oxycodone Screen, Ur Negative Negative LAB CHEMISTRY METHOD 5 2:17 PM EST [facility] Fentanyl, Ur Negative Negative LAB CHEMISTRY METHOD 5 2:17 PM EST [facility] Urine Urine specimen obtained by clean catch procedure / Unknown Non-blood Collection / Unknown 10/09/2024 1:14 PM EST 10/09/2024 1:30 PM EST Narrative [facility] - 10/09/2024 2:17 PM EST Assay [...] James Moses MD LAB URINE ORDERABLES Francisca nur Result [facility] [address] [place] [address], * Buprenorphine screen, urine (10/09/2024 1:14 PM [...] ORDERABLES Francisca l Result Performing Organization Address [facility] de Phone Number [facility] [address] [place] [address], [place] [phone] * Methadone, urine (10/09/2024 1:14 PM EST) [...] ORDERABLES Francisca l Result Performing Organization Address [facility] Co de Phone Number [facility] [address] [place] [address], [place] [phone] * Phencyclidine, urine (10/09/2024 1:14 PM EST) [...] ORDERABLES Francisca l Result Performing Organization Address [facility] Co de Phone Number [facility] [address] [place] [address], [place] [phone] * Thyroid stimulating hormone (TSH) (10/09/2024 11:10 AM EST) TSH 1.22 0.40 - 4.00 mcIU/mL LAB CHEMISTRY METHOD 10/11/2024 4:08 PM EST [facility] Blood Venous blood specimen / Unknown Venipuncture / Unknown 10/09/2024 11:10 AM EST 10/09/2024 11:17 AM EST Blake Castillo MD LAB BLOOD ORDERABLES Final Result Performing Organization Address [facility] de Phone Number [facility] [address] [place] [address], [place] [phone] * Ethanol (10/09/2024 11:10 AM EST) Ethanol Level <3 0 - 10 mg/dL LAB CHEMISTRY METHOD 10/09/2024 12:38 PM EST [facility] Blood Venous blood specimen / Unknown Venipuncture / Unknown 10/09/2024 11:10 AM EST 10/09/2024 11:17 AM EST us James Moses MD LAB BLOOD ORDERABLES Francisca l Result Performing Organization Address [facility]/ZIP Co de Phone Number [facility] [address] [place] [address], [place] [phone] * (ABNORMAL) Acetaminophen level (10/09/2024 11:10 AM EST) Acetaminophen Level <2.0(L) 10.0 - 30.0 mcg/mL LAB CHEMISTRY METHOD 10/09/2024 12:38 PM EST [facility] Blood Venous blood specimen / Unknown Venipuncture / Unknown 10/09/2024 11:10 AM EST 10/09/2024 11:17 AM EST James Moses MD LAB BLOOD ORDERABLES Francisca l Result Performing Organization Address City/[facility]/ZIP Co de Phone Number [facility] [address] [place] [address], [place] [phone] * (ABNORMAL) Salicylate level (10/09/2024 11:10 AM EST) Salicylate Level <1.7(L) 2.0 - 29.0 mg/dL LAB CHEMISTRY METHOD 10/09/2024 12:33 PM EST [facility] Blood Venous blood specimen / Unknown Venipuncture / Unknown 10/09/2024 11:10 AM EST 10/09/2024 11:17 AM EST James Moses MD LAB BLOOD ORDERABLES Francisca l Result Performing Organization Address [facility] de Phone Number [facility] [address] [place] [address], [place] [phone] * ECG-Annotated (10/09/2024) Only the most recent of3 resultswithin the time period is included. Provider Onbase ECG ORDERABLES Final Result from Last 3 Months Insurance MEDICAID - [place] Care Teams General Production Manager Relationship Specialty Start Date End Date Physician, No Pcp PCP - General 10/09/24
--- OUTSIDE RECORDS SUMMARY | 2024-11-14 13:05 | XMS_ITS | Encounter Summary ---
Author Organization [facility] Address [address] [place] [address] Care Team Providers Care Computer Numerical Control Operator Name Role Phone Physician, No Pcp Primary Care Provider Unavaila ble Reason for Visit * Reason Comments Anxiety Anxiety depression t hinks bp is high denies si/hi has been here before for similar symptoms Encounter Details Date Type Department Care Team (Late st Contact Info) Description 10/27/2024 9:50 PM EST - 10/27/2024 11:58 PM EST Emergency [facility] Emergency [address] [place] [address] Anxiety (Primary Dx) Discharge Disposition: [...] [place] [facility] [place] * Mary Moreno RN - 10/27/2024 9:13 PM EST All information obtained via automotive accessory installer [id number] Pt [place] [facility] [place] recently but feeling more [...] homicidal ideations. States he was recently at [facility] he has been depressed and anxious. [...] homicidal ideations. States he was recently at [facility] he has been depressed and anxious. [...] given for patient to go to walk-in [address] [place] [id number] for crisis or to call. Discussed with [...] mouth every 6 hours as needed for [id number] tablet 10/27/2024 11/26/2024 LISANDRA Miranda Physician Attestation [...] 10/27/2024 documented in this encounter Care Teams Computer Numerical Control Operator Relationship Specialty Start Date End Date Physician, No Pcp PCP - General 10/09/24 documented as of this encounter
[2024-11-14 13:35] LABS: Appearance Urine Clear; Color Urine Yellow; Glucose Urine UA Negative (Negative); Leukocyte Esterase Urine Negative (Negative); Nitrite Urine Negative (Negative); PH 5.5 (5.0-9.0); Specific Gravity - Urine >= 1.030 (1.005-1.025); Urine Blood Negative (Negative); Urine Ketones Negative (Negative); Urine Protein Negative (Neg-Trace)
[2024-11-14 13:56] LABS: MANUAL DIFF FLAG NO
[2024-11-14 13:57] LABS: Basophils Absolute Auto 0.1 X10*3/uL (0.0-0.2); Basophils Percent Auto 0.6 % (0-2); Eosinophils Absolute Auto 0.1 X10*3/uL (0.0-0.4); Eosinophils Percent Auto 0.8 % (0-4); Hematocrit 47.8 % (42.0-52.0); Hemoglobin 16.6 g/dl (14.0-18.0); Imm Gran Abs Auto 0.03 X10*3/uL (0.00-0.03); Imm Gran Pct Auto 0.2 % (0.0-0.4); Lymphocytes Percent Auto 24.1 % (20-40); Mean Corpuscular HGB Conc 34.7 g/dl (31.0-36.0); Mean Corpuscular Hemoglobin 30.6 pg (27.0-33.0); Mean Corpuscular Volume 88.2 fL (80.0-98.0); Mean Platelet Volume 10.3 fL (9.4-12.4); Monocytes Absolute Auto 1.1 X10*3/uL (0.1-1.2); Monocytes Percent Auto 8.9 % (2-11); Neutrophils Absolute Auto 8.1 x10*3/uL (2.0-8.3); Neutrophils Percent Auto 65.4 % (45-73); Platelet Count 263 X10*3/uL (160-400); Red Blood Count 5.42 X10*6/uL (4.60-5.80); Red Cell Distribution Width 12.7 % (11.0-16.0); White Blood Count 12.4 X10*3/uL (4.8-10.8)
[2024-11-14 14:03] LABS: Amphetamine Screen Urine Not Detected (Not Detect); Barbiturates, Urine Not Detected (Not Detect); Benzodiazepines Screen Urine Not Detected (Not Detect); Buprenorphine Scr Not Detected (Not Detect); Cannabinoid Screen Urine POSITIVE (Not Detect); Cocaine Screen Urine Not Detected (Not Detect); Fentanyl, urine Not Detected (Not Detect); Methadone Screen, Urine Not Detected (Not Detect); Opiate Screen Urine Not Detected (Not Detect); Oxycodone Screen Urine Not Detected (Not Detect); Phencyclidine Screen Urine Not Detected (Not Detect)
[2024-11-14 14:11] LABS: Ethanol 11 mg/dL
[2024-11-14 14:14] LABS: Acetaminophen LAB < 3 mcg/mL (<30); Salicylate < 5.0 mg/dL (15-30)
[2024-11-14 14:15] LABS: Alanine Aminotransferase 37 U/L (0-40); Albumin Level 4.5 g/dL (3.5-5.0); Alkaline Phosphatase 84 U/L (39-117); Anion Gap 12 (12-20); Aspartate Amino Transferase 25 U/L (5-37); Bilirubin Total 0.7 mg/dL (0.0-1.0); Blood Urea Nitrogen 17 mg/dL (9-16); Calcium 9.3 mg/dL (8.4-10.2); Carbon Dioxide 23 mmol/L (22-29); Chloride 111 mmol/L (96-108); Creatinine Clr Calc Pharmacy 166.2; Estimated Glomerular Filt Rate > 60; Glucose Random 109 mg/dL (60-115); Magnesium 2.2 mg/dL (1.6-2.6); Sodium 142 mmol/L (135-145); Total Protein 8.1 g/dL (6.5-8.0)
[2024-11-14 17:46] VITALS: BP 126/68; PULSE 84; RESP 13; TEMP 37.4; O2SAT 96
--- NOTE | 2024-11-14 19:24 | MHC.CARE ---
Pt was evaluated by the CARE Team and is an adult bedsearch-- on a section 12A for safety.
[2024-11-14 20:53] VITALS: BP 126/68; PULSE 84
[2024-11-14] MEDS: HaloperidoL 5 MG TABLET 10 MG PO (20:53)
[2024-11-14] MEDS: Mirtazapine 15 MG TABLET PO (20:53)
[2024-11-14] MEDS: cloNIDine HCL 0.1 MG TABLET PO (20:53)
[2024-11-14] MEDS: Propranolol HCL 20 MG TABLET PO (20:53)
[2024-11-15 06:00] VITALS: BP 118/65; PULSE 95; RESP 16; TEMP 36.6; O2SAT 97
[2024-11-15 09:56] VITALS: BP 159/95; PULSE 102; RESP 18; TEMP 37.2; O2SAT 96
[2024-11-15] MEDS: Propranolol HCL 20 MG TABLET PO ×3 (09:57→21:51)
[2024-11-15] MEDS: HaloperidoL 5 MG TABLET 10 MG PO ×2 (09:58→21:51)
[2024-11-15] MEDS: cloNIDine HCL 0.1 MG TABLET PO ×2 (09:58→21:50)
--- NOTE | 2024-11-15 15:08 | PHA.MEDREC ---
Addendum entered by Naresh Medina RPh 11/15/24 15:11: Reviewed by [facility] Original Note: Pharmacy Consult ? Medication Reconciliation Pharmacy has reviewed the medication reconciliation done by nursing. Claims match med list.
[2024-11-15 16:20] VITALS: BP 134/83; PULSE 110; RESP 16; TEMP 37; O2SAT 98
[2024-11-15 16:42] VITALS: BMI 47.8
--- NOTE | 2024-11-15 16:45 | PC.ADMIT ---
Pt arrived on the unit at 15:45 from the [facility] for the treatment of schizoaffective disorder. Pt signed a CV. Precipitants of this admission include pt hearing voices telling him to kill mom and feeling suicidal with no plan. Additionally, pt is not a legal immigrant and per N2N pt is terrified of ICE . Admission assessment was completed with [facility] surgical coordinator. During the admission process pt has a depressed and fearful affect. He is difficult to engage and replied with one word answers if at all. He endorses passive SI and reports hearing voices telling him to kill his mom. He endorses depression 4/10 and anxiety 5/10. He states his sleep and appetite have not been good lately due to his increased depression. He contracts for safety on the unit and knows to reach out to staff and that he can request an doughnut glazier. Pt appears to know some functional [place]. Urine tox screen positive for marijuana only. Skin check completed with no adverse findings.
--- NOTE | 2024-11-15 19:10 | PC.NURSE ---
Pt denies all alcohol use. Does not drink alcohol at all. CIWAs need to be discontinued. Pt experiences hallucinations and is anxious but NOT related to alcohol withdrawals.
[2024-11-15 20:00] VITALS: BP 118/64; PULSE 88; TEMP 36.3; O2SAT 95
[2024-11-15 21:50] VITALS: BP 118/64
[2024-11-15] MEDS: Mirtazapine 15 MG TABLET PO (21:50)
[2024-11-15 21:51] VITALS: BP 118/64; PULSE 88
[2024-11-16] MEDS: hydrOXYzine HCL 25 MG TABLET PO ×2 (07:31→19:10)
[2024-11-16 07:32] VITALS: BP 118/72; PULSE 101; TEMP 36.3; O2SAT 95
[2024-11-16 08:52] VITALS: BP 119/66; PULSE 93
[2024-11-16] MEDS: Propranolol HCL 20 MG TABLET PO ×3 (08:52→22:57)
[2024-11-16] MEDS: HaloperidoL 5 MG TABLET 10 MG PO (08:53)
[2024-11-16] MEDS: cloNIDine HCL 0.1 MG TABLET PO ×2 (09:26→22:56)
[2024-11-16] MEDS: LORazepam 1 MG TABLET 2 MG PO ×3 (09:26→20:12)
[2024-11-16] MEDS: LORazepam 1 MG TABLET PO ×3 (13:41→22:56)
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
[2024-11-16 15:47] VITALS: BP 135/79; PULSE 132
[2024-11-16 19:47] VITALS: BP 133/73; PULSE 109; RESP 16; TEMP 37.2; O2SAT 97
[2024-11-16 22:56] VITALS: BP 138/88
[2024-11-16] MEDS: Mirtazapine 15 MG TABLET PO (22:56)
[2024-11-16] MEDS: OLANZapine 10 MG TABLET PO (22:56)
[2024-11-16] MEDS: Benztropine Mesylate 1 MG TABLET PO (22:56)
[2024-11-16 22:57] VITALS: BP 138/88; PULSE 104
[2024-11-17 08:00] VITALS: BP 171/93; PULSE 102; TEMP 36.4; O2SAT 98
[2024-11-17] MEDS: Propranolol HCL 20 MG TABLET PO ×3 (09:10→20:41)
[2024-11-17] MEDS: LORazepam 1 MG TABLET PO ×4 (09:10→20:41)
[2024-11-17] MEDS: cloNIDine HCL 0.1 MG TABLET PO ×2 (09:10→20:42)
[2024-11-17] MEDS: Benztropine Mesylate 1 MG TABLET PO ×2 (09:10→20:41)
[2024-11-17] MEDS: OLANZapine 10 MG TABLET PO (09:10)
--- NOTE | 2024-11-17 09:49 | P.PNPSI_ITS ---
Subjective Subjective Date of Service: 11/17/24 Reason For Visit: Schizoaffective disorder Interim History: Met with patient; discussed with team; seen with waistline joiner overlock Patient struggling with ongoing psychotic symptoms hearing auditory hallucinations that he is a piece of shit, saying no Dario... And telling him to kill himself. Patient however says he does not want to hurt himself and has no SI. Patient frequently expressing fears that drug dealers are going to find him and kill. Wildlife Control Agent discussed medication management with patient and he is agreeable to starting a new antipsychotic medication of publications writer's choosing. Confirmed patient has not been drinking alcohol. Mental Status Exam Mental Status Exam Narrative: Pt is alert and oriented; behavior is somewhat disorganized, pacing lemus, internally preoccupied, staring straight ahead; cooperative and receptive to help; patient is not in distress; dressed in hospital attire, obese, malodorous; mood is described as blunted and affect congruent, blunted; eye contact avoidant, staring straight ahead; Speech is sparse, quiet and slowed; combination of psychomotor agitation/retardation, either sitting and staring or pacing; thought process is concrete, goal directed; Thought content is on dealing with AH, paranoid delusions; denies any SI/HI. Continued AH Patients insight and judgment impaired Diagnostics Vital Signs (24Hr): Vital Signs - 24 hr 11/16/24 15:47 11/16/24 19:47 11/16/24 22:56 Temperature 98.9 F Pulse Rate 132 H 109 H Respiratory Rate 16 Blood Pressure 135/79 133/73 138/88 Pulse Oximetry 97 Oxygen Delivery Method Room Air 11/16/24 22:57 11/17/24 08:00 Temperature 97.5 F Pulse Rate 104 H 102 H Respiratory Rate Blood Pressure 138/88 171/93 H Pulse Oximetry 98 Oxygen Delivery Method Room Air BMI result Body Mass Index 47.8 Labs 11/14/24 13:50 11/14/24 13:50 Medications Medications Current Medications Acetaminophen (Acetaminophen 325 Mg Tablet) 650 mg PO Q6H PRN PRN Reason: Headache/Pain, Scale 1-10 Al Hydroxide/Mg Hydroxide (Magnesium Hydrox/Alum Hydrox 30 Ml Oral.Susp) 30 ml PO Q6H PRN PRN Reason: Heartburn/Nausea Benztropine Mesylate (Benztropine Mesylate 1 Mg Tablet) 1 mg PO BID [facility] Last Admin: 11/17/24 09:10 Dose: 1 mg Clonidine HCl (Clonidine Hcl 0.1 Mg Tablet) 0.1 mg PO BID [facility]; Protocol Last Admin: 11/17/24 09:10 Dose: 0.1 mg Hydroxyzine HCl (Hydroxyzine Hcl 25 Mg Tablet) 25 mg PO Q6H PRN PRN Reason: mild anxiety Last Admin: 11/16/24 19:10 Dose: 25 mg Lorazepam (Lorazepam 1 Mg Tablet) 1 mg PO QID [facility] Last Admin: 11/17/24 09:10 Dose: 1 mg Lorazepam (Lorazepam 1 Mg Tablet) 2 mg PO Q2H PRN PRN Reason: ciwa 11+ Last Admin: 11/16/24 20:12 Dose: 2 mg Lorazepam (Lorazepam 1 Mg Tablet) 1 mg PO Q2H PRN PRN Reason: ciwa 6-10 Magnesium Hydroxide (Milk Of Magnesia 30 Ml Oral.Susp) 30 ml PO DAILY PRN PRN Reason: Constipation Mirtazapine (Mirtazapine 15 Mg Tablet) 15 mg PO BEDTIME [facility] Last Admin: 11/16/24 22:56 Dose: 15 mg Nicotine (Nicotine 21 Mg Patch.Td24) 21 mg TRANSDERMA DAILY PRN PRN Reason: nicotine cravings Nicotine Polacrilex (Nicotine Polacrilex 2 Mg Gum) 4 mg BUCCAL Q2H PRN PRN Reason: Nicotine Cravings Olanzapine (Olanzapine 10 Mg Tablet) 10 mg PO BID [facility] Last Admin: 11/17/24 09:10 Dose: 10 mg Propranolol HCl (Propranolol Hcl 20 Mg Tablet) 20 mg PO TID [facility]; Protocol Last Admin: 11/17/24 09:10 Dose: 20 mg Trazodone HCl (Trazodone Hcl 50 Mg Tablet) 50 mg PO BEDTIME MRX1 PRN PRN Reason: Insomnia Allergies Allergies Allergy/AdvReac Type Severity Reaction Status Date / Time No Known Allergies Allergy Verified 11/14/24 12:28 Assessment & Plan Assessment & Plan (1) Schizoaffective disorder, depressive type: Status: Suspected Code(s): F25.1 - Schizoaffective disorder, depressive type (2) Auditory hallucinations: Status: Acute Code(s): R44.0 - Auditory hallucinations (3) Paranoid delusion: Status: Acute Code(s): F22 - Delusional disorders Plan Hospital course: On admission patient had psychotic symptoms as well as catatonic symptoms. Started on Ativan which has helped relieve his catatonic symptoms and he has now moved around, walking, talking, eating and drinking 11/17 Patient struggling with ongoing psychotic symptoms hearing auditory hallucinations that he is a piece of shit, saying no Dario... And telling him to kill himself. Patient however says he does not want to hurt himself and has no SI. Patient frequently expressing fears that drug dealers are going to find him and kill. Wildlife Control Agent discussed medication management with patient and he is agreeable to starting a new antipsychotic medication of publications writer's choosing. Confirmed patient has not been drinking alcohol. Patient's previous admission to was his 1st psychiatric admission. During which time he failed the following medication trials: -Risperdal -Zyprexa -haloperidol ...though all of them were of limited trials Plan: Admit, CV, 15 minute checks Start Prolixin 2.5 mg t.i.d. Add Prolixin 2.5 mg t.i.d. p.r.n. for psychosis Discontinue Zyprexa; tried last admission with no effect Continue Ativan 1 mg q.i.d. to prevent return of catatonic symptoms DC CIWA; patient has not been drinking Collateral Contact Diagnostics as needed Encourage milieu [place] building Patient educated on: diagnosis and medication risk/benefits Informed Consent: understands, does not understand and further education needed Reason for continued inpatient stay Substantial Risk for: inability to function Time Spent With Patient Time: Total time managing care of this patient today ____ minutes.
[2024-11-17 10:27] VITALS: BP 140/67; PULSE 116
[2024-11-17 14:53] VITALS: BP 133/65; PULSE 122
[2024-11-17] MEDS: fluPHENAZine HCl 2.5 MG TABLET PO ×2 (16:42→20:41)
[2024-11-17 19:40] VITALS: BP 143/70; PULSE 100; RESP 16; TEMP 36.4; O2SAT 98
[2024-11-17 20:41] VITALS: BP 143/70; PULSE 100
[2024-11-17] MEDS: hydrOXYzine HCL 25 MG TABLET PO (20:41)
[2024-11-17] MEDS: Mirtazapine 15 MG TABLET PO (20:41)
[2024-11-17 20:42] VITALS: BP 143/70
[2024-11-18 08:39] VITALS: BP 130/60; PULSE 82; TEMP 36.7; O2SAT 97
[2024-11-18] MEDS: Benztropine Mesylate 1 MG TABLET PO (08:39)
[2024-11-18] MEDS: cloNIDine HCL 0.1 MG TABLET PO ×2 (08:39→21:47)
[2024-11-18] MEDS: Propranolol HCL 20 MG TABLET PO ×3 (08:39→21:48)
[2024-11-18] MEDS: fluPHENAZine HCl 2.5 MG TABLET PO ×3 (08:40→21:48)
[2024-11-18] MEDS: LORazepam 1 MG TABLET PO ×4 (08:40→21:48)
[2024-11-18] MEDS: hydrOXYzine HCL 25 MG TABLET PO ×2 (10:10→21:48)
--- NOTE | 2024-11-18 10:16 | HO.PSYCHPN ---
Subjective Subjective Date of Service: 11/18/24 Reason For Visit: Schizoaffective disorder Interim History: Met with patient; discussed with team; seen with goat farmer Patient remains with psychotic symptoms and says voices are still very bothersome. Tolerating Prolixin and agrees to increasing dose Mental Status Exam Mental Status Exam Narrative: Pt is alert and oriented; behavior is somewhat disorganized, pacing lemus, internally preoccupied, staring straight ahead; cooperative and receptive to help; patient is not in distress; dressed in hospital attire, obese, malodorous; mood is described as blunted and affect congruent, blunted; eye contact avoidant, staring straight ahead; Speech is sparse, quiet and slowed; combination of psychomotor agitation/retardation, either sitting and staring or pacing; thought process is concrete, goal directed; Thought content is on dealing with AH, paranoid delusions; denies any SI/HI. Continued AH Patients insight and judgment impaired Diagnostics Vital Signs (24Hr): Vital Signs - 24 hr 11/17/24 10:27 11/17/24 14:53 11/17/24 19:40 Temperature 97.5 F Pulse Rate 116 H 122 H 100 Respiratory Rate 16 Blood Pressure 140/67 H 133/65 143/70 H Pulse Oximetry 98 Oxygen Delivery Method Room Air 11/17/24 20:41 11/17/24 20:42 11/18/24 08:39 Temperature Pulse Rate 100 Respiratory Rate Blood Pressure 143/70 H 143/70 H 130/60 Pulse Oximetry Oxygen Delivery Method 11/18/24 08:39 11/18/24 08:39 Temperature 98.1 F Pulse Rate 82 82 Respiratory Rate Blood Pressure 130/60 130/60 Pulse Oximetry 97 Oxygen Delivery Method Room Air BMI result Body Mass Index 47.8 Labs 11/14/24 13:50 11/14/24 13:50 Medications Medications Current Medications Acetaminophen (Acetaminophen 325 Mg Tablet) 650 mg PO Q6H PRN PRN Reason: Headache/Pain, Scale 1-10 Al Hydroxide/Mg Hydroxide (Magnesium Hydrox/Alum Hydrox 30 Ml Oral.Susp) 30 ml PO Q6H PRN PRN Reason: Heartburn/Nausea Benztropine Mesylate (Benztropine Mesylate 1 Mg Tablet) 1 mg PO BID [facility] Last Admin: 11/18/24 08:39 Dose: 1 mg Clonidine HCl (Clonidine Hcl 0.1 Mg Tablet) 0.1 mg PO BID [facility]; Protocol Last Admin: 11/18/24 08:39 Dose: 0.1 mg Fluphenazine HCl (Fluphenazine Hcl 2.5 Mg Tablet) 2.5 mg PO TID [facility] Last Admin: 11/18/24 08:40 Dose: 2.5 mg Fluphenazine HCl (Fluphenazine Hcl 2.5 Mg Tablet) 2.5 mg PO TID PRN PRN Reason: psychosis Hydroxyzine HCl (Hydroxyzine Hcl 25 Mg Tablet) 25 mg PO Q6H PRN PRN Reason: mild anxiety Last Admin: 11/18/24 10:10 Dose: 25 mg Lorazepam (Lorazepam 1 Mg Tablet) 1 mg PO QID [facility] Last Admin: 11/18/24 08:40 Dose: 1 mg Magnesium Hydroxide (Milk Of Magnesia 30 Ml Oral.Susp) 30 ml PO DAILY PRN PRN Reason: Constipation Mirtazapine (Mirtazapine 15 Mg Tablet) 15 mg PO BEDTIME [facility] Last Admin: 11/17/24 20:41 Dose: 15 mg Nicotine (Nicotine 21 Mg Patch.Td24) 21 mg TRANSDERMA DAILY PRN PRN Reason: nicotine cravings Nicotine Polacrilex (Nicotine Polacrilex 2 Mg Gum) 4 mg BUCCAL Q2H PRN PRN Reason: Nicotine Cravings Propranolol HCl (Propranolol Hcl 20 Mg Tablet) 20 mg PO TID [facility]; Protocol Last Admin: 11/18/24 08:39 Dose: 20 mg Trazodone HCl (Trazodone Hcl 50 Mg Tablet) 50 mg PO BEDTIME MRX1 PRN PRN Reason: Insomnia Allergies Allergies Allergy/AdvReac Type Severity Reaction Status Date / Time No Known Allergies Allergy Verified 11/14/24 12:28 Assessment & Plan Assessment & Plan (1) Schizoaffective disorder, depressive type: Status: Suspected Code(s): F25.1 - Schizoaffective disorder, depressive type (2) Auditory hallucinations: Status: Acute Code(s): R44.0 - Auditory hallucinations (3) Paranoid delusion: Status: Acute Code(s): F22 - Delusional disorders Plan Hospital course: On admission patient had psychotic symptoms as well as catatonic symptoms. Started on Ativan which has helped relieve his catatonic symptoms and he has now moved around, walking, talking, eating and drinking 11/17 Patient struggling with ongoing psychotic symptoms hearing auditory hallucinations that he is a piece of shit, saying no Dario... And telling him to kill himself. Patient however says he does not want to hurt himself and has no SI. Patient frequently expressing fears that drug dealers are going to find him and kill. Boom Worker discussed medication management with patient and he is agreeable to starting a new antipsychotic medication of designer writer's choosing. Confirmed patient has not been drinking alcohol. Patient's previous admission to was his 1st psychiatric admission. During which time he failed the following medication trials: -Risperdal -Zyprexa -haloperidol ...though all of them were of limited trials 11/18 Patient remains with psychotic symptoms and says voices are still very bothersome. Tolerating Prolixin and agrees to increasing dose Plan: Admit, CV, 15 minute checks Increase to Prolixin 5 mg mg t.i.d. Add Prolixin 2.5 mg t.i.d. p.r.n. for psychosis Discontinue Zyprexa; tried last admission with no effect Continue Ativan 1 mg q.i.d. to prevent return of catatonic symptoms DC CIWA; patient has not been drinking Collateral Contact Diagnostics as needed Encourage milieu [place] building Patient educated on: diagnosis and medication risk/benefits Informed Consent: understands, does not understand and further education needed Reason for continued inpatient stay Substantial Risk for: inability to function Time Spent With Patient Time: Total time managing care of this patient today ____ minutes.
[2024-11-18 14:54] VITALS: BP 121/73; PULSE 108
[2024-11-18 19:42] VITALS: BP 139/66; PULSE 93; RESP 16; TEMP 37.1; O2SAT 97
[2024-11-18 21:47] VITALS: BP 139/66
[2024-11-18 21:48] VITALS: BP 139/66; PULSE 93
[2024-11-18] MEDS: Benztropine Mesylate 0.5 MG TABLET PO (21:48)
[2024-11-18] MEDS: Mirtazapine 15 MG TABLET PO (21:56)
[2024-11-19 08:00] VITALS: BP 119/59; PULSE 82; TEMP 36.3; O2SAT 98
[2024-11-19] MEDS: Propranolol HCL 20 MG TABLET PO ×3 (08:47→21:43)
[2024-11-19] MEDS: Benztropine Mesylate 0.5 MG TABLET PO ×2 (08:47→21:43)
[2024-11-19] MEDS: fluPHENAZine HCl 2.5 MG TABLET PO ×3 (08:47→21:43)
[2024-11-19] MEDS: LORazepam 1 MG TABLET PO ×4 (08:47→21:43)
[2024-11-19] MEDS: cloNIDine HCL 0.1 MG TABLET PO ×2 (08:47→21:43)
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
[2024-11-19 14:55] VITALS: BP 127/79; PULSE 93
[2024-11-19 20:30] VITALS: BP 177/88; PULSE 104; TEMP 36.5; O2SAT 98
[2024-11-19] MEDS: Mirtazapine 15 MG TABLET PO (21:43)
[2024-11-20 08:00] VITALS: BP 123/58; PULSE 88; TEMP 36.8; O2SAT 97
[2024-11-20] MEDS: fluPHENAZine HCl 2.5 MG TABLET PO ×3 (08:28→21:45)
[2024-11-20] MEDS: Propranolol HCL 20 MG TABLET PO ×3 (08:28→21:46)
[2024-11-20] MEDS: Benztropine Mesylate 0.5 MG TABLET PO ×2 (08:28→21:45)
[2024-11-20] MEDS: cloNIDine HCL 0.1 MG TABLET PO ×2 (08:29→21:45)
[2024-11-20] MEDS: LORazepam 1 MG TABLET PO ×4 (08:29→21:45)
--- NOTE | 2024-11-20 12:16 | P.PNPSI_ITS ---
Subjective Subjective Date of Service: 11/20/24 Reason For Visit: Schizoaffective disorder Subjective Notes: Conditional Voluntary Healthcare Proxy: No Guardianship: No Medical Problems Affecting Mental Status: No Interim History: Feeling less frightened here. Voices- at times , Anxiety- 4 Sleep is an issue Ativan helps Review of Systems Review of Systems denies Mental Status Exam Mental Status Exam Patient Appearance: Fatigued Patient Orientation: Person and Place Level of Consciousness: Sedated and Alert Patient Behavior: Guarded, Suspicious, Avoidant, Distractible and Poor Eye Contact Mood Description: Depressed Affect Description: Flat Patient Cognition Impaired: Yes Ability to Follow Directions: Fair Speech Pattern: Impoverished Memory Description: Remote Impaired Delusions: Paranoid Ideation and Present Perceptual Disturbances: Depersonalization and Derealization Thought Process: Rumination Thought Content: positive for Circumstantial, positive for Preoccupation, positive for Thought Blocking and positive for Suicidal Ideation Depressive Symptoms: Increased Anxiety, Hopelessness, Unhappiness, Thoughts of /Suicide and Difficulty Concentrating Judgement: Poor Diagnostics Vital Signs (24Hr): Vital Signs - 24 hr 11/19/24 14:55 11/19/24 20:30 11/20/24 08:00 Temperature 97.7 F 98.2 F Pulse Rate 93 104 H 88 Blood Pressure 127/79 177/88 H 123/58 L Pulse Oximetry 98 97 Oxygen Delivery Method Room Air Room Air BMI result Body Mass Index 47.8 Labs 11/14/24 13:50 11/14/24 13:50 Medications Medications Current Medications Acetaminophen (Acetaminophen 325 Mg Tablet) 650 mg PO Q6H PRN PRN Reason: Headache/Pain, Scale 1-10 Al Hydroxide/Mg Hydroxide (Magnesium Hydrox/Alum Hydrox 30 Ml Oral.Susp) 30 ml PO Q6H PRN PRN Reason: Heartburn/Nausea Benztropine Mesylate (Benztropine Mesylate 0.5 Mg Tablet) 0.5 mg PO BID [facility] Last Admin: 11/20/24 08:28 Dose: 0.5 mg Clonidine HCl (Clonidine Hcl 0.1 Mg Tablet) 0.1 mg PO BID [facility]; Protocol Last Admin: 11/20/24 08:29 Dose: 0.1 mg Fluphenazine HCl (Fluphenazine Hcl 2.5 Mg Tablet) 2.5 mg PO TID [facility] Last Admin: 11/20/24 08:28 Dose: 2.5 mg Fluphenazine HCl (Fluphenazine Hcl 5 Mg Tablet) 5 mg PO TID PRN PRN Reason: psychosis Hydroxyzine HCl (Hydroxyzine Hcl 25 Mg Tablet) 25 mg PO Q6H PRN PRN Reason: mild anxiety Last Admin: 11/18/24 21:48 Dose: 25 mg Lorazepam (Lorazepam 1 Mg Tablet) 1 mg PO QID [facility] Last Admin: 11/20/24 08:29 Dose: 1 mg Magnesium Hydroxide (Milk Of Magnesia 30 Ml Oral.Susp) 30 ml PO DAILY PRN PRN Reason: Constipation Mirtazapine (Mirtazapine 15 Mg Tablet) 15 mg PO BEDTIME [facility] Last Admin: 11/19/24 21:43 Dose: 15 mg Nicotine (Nicotine 21 Mg Patch.Td24) 21 mg TRANSDERMA DAILY PRN PRN Reason: nicotine cravings Nicotine Polacrilex (Nicotine Polacrilex 2 Mg Gum) 4 mg BUCCAL Q2H PRN PRN Reason: Nicotine Cravings Propranolol HCl (Propranolol Hcl 20 Mg Tablet) 20 mg PO TID [facility]; Protocol Last Admin: 11/20/24 08:28 Dose: 20 mg Trazodone HCl (Trazodone Hcl 50 Mg Tablet) 50 mg PO BEDTIME MRX1 PRN PRN Reason: Insomnia Allergies Allergies Allergy/AdvReac Type Severity Reaction Status Date / Time No Known Allergies Allergy Verified 11/14/24 12:28 Assessment & Plan Assessment & Plan (1) Schizoaffective disorder, depressive type: Status: Suspected Code(s): F25.1 - Schizoaffective disorder, depressive type (2) Auditory hallucinations: Status: Acute Code(s): R44.0 - Auditory hallucinations (3) Paranoid delusion: Status: Acute Code(s): F22 - Delusional disorders Plan Hospital course: On admission patient had psychotic symptoms as well as catatonic symptoms. Started on Ativan which has helped relieve his catatonic symptoms and he has now moved around, walking, talking, eating and drinking 11/17 Patient struggling with ongoing psychotic symptoms hearing auditory hallucinations that he is a piece of shit, saying no Dario... And telling him to kill himself. Patient however says he does not want to hurt himself and has no SI. Patient frequently expressing fears that drug dealers are going to find him and kill. Municipal Court Magistrate discussed medication management with patient and he is agreeable to starting a new antipsychotic medication of radio news writer's choosing. Confirmed patient has not been drinking alcohol. Patient's previous admission to was his 1st psychiatric admission. During which time he failed the following medication trials: -Risperdal -Zyprexa -haloperidol ...though all of them were of limited trials 11/18 Patient remains with psychotic symptoms and says voices are still very bothersome. Tolerating Prolixin and agrees to increasing dose 11/20: Depakote 250 mg tid Plan: Admit, CV, 15 minute checks Increase to Prolixin 5 mg mg t.i.d. Add Prolixin 2.5 mg t.i.d. p.r.n. for psychosis Discontinue Zyprexa; tried last admission with no effect Continue Ativan 1 mg q.i.d. to prevent return of catatonic symptoms DC CIWA; patient has not been drinking Collateral Contact Diagnostics as needed Encourage milieu [place] building Reason for continued inpatient stay Substantial Risk for: rapid decompensation Time Spent With Patient Time: Total time managing care of this patient today ____ minutes.
[2024-11-20 15:26] VITALS: BP 140/82; PULSE 107
[2024-11-20 20:00] VITALS: BP 117/73; PULSE 95; TEMP 36.9; O2SAT 98
[2024-11-20] MEDS: Divalproex Sodium 250 MG TABLET.DR PO (21:45)
[2024-11-20] MEDS: Mirtazapine 15 MG TABLET PO (21:45)
[2024-11-21 08:00] VITALS: BP 128/71; PULSE 80; RESP 18; TEMP 36.4; O2SAT 98
[2024-11-21] MEDS: LORazepam 1 MG TABLET PO ×4 (08:20→22:20)
[2024-11-21] MEDS: Divalproex Sodium 250 MG TABLET.DR PO ×3 (08:20→22:20)
[2024-11-21] MEDS: Propranolol HCL 20 MG TABLET PO ×3 (08:20→22:19)
[2024-11-21] MEDS: Benztropine Mesylate 0.5 MG TABLET PO ×2 (08:21→22:19)
[2024-11-21] MEDS: cloNIDine HCL 0.1 MG TABLET PO ×2 (08:21→22:19)
[2024-11-21] MEDS: fluPHENAZine HCl 2.5 MG TABLET PO ×3 (08:21→22:19)
[2024-11-21] MEDS: hydrOXYzine HCL 25 MG TABLET PO (10:28)
--- NOTE | 2024-11-21 10:30 | HO.PSYCHPN ---
Subjective Subjective Date of Service: 11/21/24 Reason For Visit: Schizoaffective disorder Subjective Notes: Conditional Voluntary Healthcare Proxy: No Guardianship: No Medical Problems Affecting Mental Status: No Interim History: Pt reports some improvement. Daily showering, voices are less but present, stating, gabriela Bishop. Slept 7 hours last night, ate meals with peers in the kitchen. Anxiety 6. Tells team when he goes home he needs to make sure he takes medicine, rests properly, exercises and plays video games. Does report nightmares when sleeping. Will trial prazosin at for mgt. Medication Compliance: Yes Side effects from medications: No Attending Groups: Intermittent Review of Systems Acute medical concerns: No Review of Systems Review of Systems denies Mental Status Exam Mental Status Exam Patient Appearance: Appropriate Patient Orientation: Person, Place, Time and Situation Level of Consciousness: Alert Patient Behavior: Guarded, Talkative, Cooperative and Good Eye Contact Mood Description: Anxious and Apprehensive Affect Description: Anxious and Apprehensive Patient Cognition Impaired: No Ability to Follow Directions: Good Speech Pattern: Spontaneous Speech Memory Description: Episodic Impaired Hallucinations: Auditory (decreased) Delusions: Paranoid Ideation Perceptual Disturbances: Depersonalization and Derealization Thought Process: Rumination Thought Content: positive for Perseveration Depressive Symptoms: Increased Anxiety and Thoughts of /Suicide (denies) Judgement: Fair Diagnostics Vital Signs (24Hr): Vital Signs - 24 hr 11/20/24 15:26 11/20/24 20:00 11/21/24 08:00 Temperature 98.5 F 97.5 F Pulse Rate 107 H 95 80 Respiratory Rate 18 Blood Pressure 140/82 H 117/73 128/71 Pulse Oximetry 98 98 Oxygen Delivery Method Room Air Room Air BMI result Body Mass Index 47.8 Labs 11/14/24 13:50 11/14/24 13:50 Medications Medications Current Medications Acetaminophen (Acetaminophen 325 Mg Tablet) 650 mg PO Q6H PRN PRN Reason: Headache/Pain, Scale 1-10 Al Hydroxide/Mg Hydroxide (Magnesium Hydrox/Alum Hydrox 30 Ml Oral.Susp) 30 ml PO Q6H PRN PRN Reason: Heartburn/Nausea Benztropine Mesylate (Benztropine Mesylate 0.5 Mg Tablet) 0.5 mg PO BID [facility] Last Admin: 11/21/24 08:21 Dose: 0.5 mg Clonidine HCl (Clonidine Hcl 0.1 Mg Tablet) 0.1 mg PO BID [facility]; Protocol Last Admin: 11/21/24 08:21 Dose: 0.1 mg Divalproex Sodium (Divalproex Sodium 250 Mg Tablet.Dr) 250 mg PO TID [facility] Last Admin: 11/21/24 08:20 Dose: 250 mg Fluphenazine HCl (Fluphenazine Hcl 2.5 Mg Tablet) 2.5 mg PO TID [facility] Last Admin: 11/21/24 08:21 Dose: 2.5 mg Fluphenazine HCl (Fluphenazine Hcl 5 Mg Tablet) 5 mg PO TID PRN PRN Reason: psychosis Hydroxyzine HCl (Hydroxyzine Hcl 25 Mg Tablet) 25 mg PO Q6H PRN PRN Reason: mild anxiety Last Admin: 11/21/24 10:28 Dose: 25 mg Lorazepam (Lorazepam 1 Mg Tablet) 1 mg PO QID [facility] Last Admin: 11/21/24 08:20 Dose: 1 mg Magnesium Hydroxide (Milk Of Magnesia 30 Ml Oral.Susp) 30 ml PO DAILY PRN PRN Reason: Constipation Mirtazapine (Mirtazapine 15 Mg Tablet) 15 mg PO BEDTIME [facility] Last Admin: 11/20/24 21:45 Dose: 15 mg Nicotine (Nicotine 21 Mg Patch.Td24) 21 mg TRANSDERMA DAILY PRN PRN Reason: nicotine cravings Nicotine Polacrilex (Nicotine Polacrilex 2 Mg Gum) 4 mg BUCCAL Q2H PRN PRN Reason: Nicotine Cravings Propranolol HCl (Propranolol Hcl 20 Mg Tablet) 20 mg PO TID [facility]; Protocol Last Admin: 11/21/24 08:20 Dose: 20 mg Trazodone HCl (Trazodone Hcl 50 Mg Tablet) 50 mg PO BEDTIME MRX1 PRN PRN Reason: Insomnia Allergies Allergies Allergy/AdvReac Type Severity Reaction Status Date / Time No Known Allergies Allergy Verified 11/14/24 12:28 Assessment & Plan Assessment & Plan (1) Schizoaffective disorder, depressive type: Status: Suspected Code(s): F25.1 - Schizoaffective disorder, depressive type (2) Auditory hallucinations: Status: Acute Code(s): R44.0 - Auditory hallucinations (3) Paranoid delusion: Status: Acute Code(s): F22 - Delusional disorders Plan Hospital course: On admission patient had psychotic symptoms as well as catatonic symptoms. Started on Ativan which has helped relieve his catatonic symptoms and he has now moved around, walking, talking, eating and drinking 11/17 Patient struggling with ongoing psychotic symptoms hearing auditory hallucinations that he is a piece of shit, saying no Dario... And telling him to kill himself. Patient however says he does not want to hurt himself and has no SI. Patient frequently expressing fears that drug dealers are going to find him and kill. Academy Education Director discussed medication management with patient and he is agreeable to starting a new antipsychotic medication of underwriter solicitation director's choosing. Confirmed patient has not been drinking alcohol. Patient's previous admission to was his 1st psychiatric admission. During which time he failed the following medication trials: -Risperdal -Zyprexa -haloperidol ...though all of them were of limited trials 11/18 Patient remains with psychotic symptoms and says voices are still very bothersome. Tolerating Prolixin and agrees to increasing dose 11/21: Prazosin 1 mg HS for mgt of nightmares Plan: Admit, CV, 15 minute checks Increase to Prolixin 5 mg mg t.i.d. Add Prolixin 2.5 mg t.i.d. p.r.n. for psychosis Discontinue Zyprexa; tried last admission with no effect Continue Ativan 1 mg q.i.d. to prevent return of catatonic symptoms DC CIWA; patient has not been drinking Collateral Contact Diagnostics as needed Encourage milieu [place] building Reason for continued inpatient stay Substantial Risk for: rapid decompensation Time Spent With Patient Time: Total time managing care of this patient today ____ minutes.
[2024-11-21 14:20] VITALS: BP 123/60; PULSE 113
[2024-11-21 20:00] VITALS: BP 122/78; PULSE 108; TEMP 37; O2SAT 98
[2024-11-21 22:19] VITALS: BP 122/78; PULSE 108
[2024-11-21 22:20] VITALS: BP 122/78
[2024-11-21] MEDS: Prazosin HCL 1 MG CAPSULE PO (22:20)
[2024-11-21] MEDS: Mirtazapine 15 MG TABLET PO (22:20)
[2024-11-22 07:00] VITALS: BMI 50.4
[2024-11-22 08:00] VITALS: BP 144/61; PULSE 92; TEMP 37.1; O2SAT 96
[2024-11-22] MEDS: Propranolol HCL 20 MG TABLET PO ×3 (08:22→21:35)
[2024-11-22] MEDS: Divalproex Sodium 250 MG TABLET.DR PO ×3 (08:22→21:34)
[2024-11-22] MEDS: fluPHENAZine HCl 2.5 MG TABLET PO ×3 (08:22→21:37)
[2024-11-22] MEDS: cloNIDine HCL 0.1 MG TABLET PO ×2 (08:22→21:34)
[2024-11-22] MEDS: Benztropine Mesylate 0.5 MG TABLET PO (08:22)
[2024-11-22] MEDS: LORazepam 1 MG TABLET PO ×4 (08:22→21:35)
--- NOTE | 2024-11-22 14:29 | P.PNPSI_ITS ---
Subjective Subjective Date of Service: 11/22/24 Reason For Visit: Schizoaffective disorder Subjective Notes: Conditional Voluntary Healthcare Proxy: No Guardianship: No Medical Problems Affecting Mental Status: No Interim History: Reports improvement, decrease in auditory perceptual alterations. Slept nine hours last night. Voices still repeat, No, Dario . Pt asks that we continue to titrate medication for voices. Plan to increase Prolixin on 11/23. [place] with Martha Vallecillo OTR/L. No word from family yet regarding family claims attorney wanting to meet prior to 11/[address] Medication Compliance: Yes Side effects from medications: No Attending Groups: Intermittent Review of Systems Acute medical concerns: No Review of Systems Review of Systems Denies Mental Status Exam Mental Status Exam Patient Appearance: Appropriate Patient Orientation: Person, Place, Time and Situation Level of Consciousness: Alert Patient Behavior: Appropriate, Talkative, Cooperative and Good Eye Contact Mood Description: Apprehensive Affect Description: Apprehensive Patient Cognition Impaired: No Ability to Follow Directions: Good Speech Pattern: Spontaneous Speech Memory Description: Episodic Impaired Hallucinations: Auditory Delusions: Not Present Perceptual Disturbances: Depersonalization and Derealization Thought Process: Goal Oriented Thought Content: positive for Goal Oriented and positive for Suicidal Ideation (denies) Judgement: Good Diagnostics Vital Signs (24Hr): Vital Signs - 24 hr 11/21/24 20:00 11/21/24 22:19 11/21/24 22:19 Temperature 98.6 F Pulse Rate 108 H 108 H Blood Pressure 122/78 122/78 122/78 Pulse Oximetry 98 Oxygen Delivery Method Room Air 11/21/24 22:20 11/22/24 08:00 Temperature 98.7 F Pulse Rate 92 Blood Pressure 122/78 144/61 H Pulse Oximetry 96 Oxygen Delivery Method Room Air BMI result Body Mass Index 50.4 Labs 11/14/24 13:50 11/14/24 13:50 Medications Medications Current Medications Acetaminophen (Acetaminophen 325 Mg Tablet) 650 mg PO Q6H PRN PRN Reason: Headache/Pain, Scale 1-10 Al Hydroxide/Mg Hydroxide (Magnesium Hydrox/Alum Hydrox 30 Ml Oral.Susp) 30 ml PO Q6H PRN PRN Reason: Heartburn/Nausea Benztropine Mesylate (Benztropine Mesylate 1 Mg Tablet) 1 mg PO BID [facility] Clonidine HCl (Clonidine Hcl 0.1 Mg Tablet) 0.1 mg PO BID [facility]; Protocol Last Admin: 11/22/24 08:22 Dose: 0.1 mg Divalproex Sodium (Divalproex Sodium 250 Mg Tablet.Dr) 250 mg PO TID [facility] Last Admin: 11/22/24 08:22 Dose: 250 mg Fluphenazine HCl (Fluphenazine Hcl 2.5 Mg Tablet) 2.5 mg PO TID [facility] Last Admin: 11/22/24 08:22 Dose: 2.5 mg Fluphenazine HCl (Fluphenazine Hcl 5 Mg Tablet) 5 mg PO TID PRN PRN Reason: psychosis Hydroxyzine HCl (Hydroxyzine Hcl 25 Mg Tablet) 25 mg PO Q6H PRN PRN Reason: mild anxiety Last Admin: 11/21/24 10:28 Dose: 25 mg Lorazepam (Lorazepam 1 Mg Tablet) 1 mg PO QID [facility] Last Admin: 11/22/24 12:16 Dose: 1 mg Magnesium Hydroxide (Milk Of Magnesia 30 Ml Oral.Susp) 30 ml PO DAILY PRN PRN Reason: Constipation Mirtazapine (Mirtazapine 15 Mg Tablet) 15 mg PO BEDTIME [facility] Last Admin: 11/21/24 22:20 Dose: 15 mg Nicotine (Nicotine 21 Mg Patch.Td24) 21 mg TRANSDERMA DAILY PRN PRN Reason: nicotine cravings Nicotine Polacrilex (Nicotine Polacrilex 2 Mg Gum) 4 mg BUCCAL Q2H PRN PRN Reason: Nicotine Cravings Prazosin HCl (Prazosin Hcl 1 Mg Capsule) 1 mg PO BEDTIME [facility]; Protocol Last Admin: 11/21/24 22:20 Dose: 1 mg Propranolol HCl (Propranolol Hcl 20 Mg Tablet) 20 mg PO TID [facility]; Protocol Last Admin: 11/22/24 08:22 Dose: 20 mg Trazodone HCl (Trazodone Hcl 50 Mg Tablet) 50 mg PO BEDTIME MRX1 PRN PRN Reason: Insomnia Allergies Allergies Allergy/AdvReac Type Severity Reaction Status Date / Time No Known Allergies Allergy Verified 11/14/24 12:28 Assessment & Plan Assessment & Plan (1) Schizoaffective disorder, depressive type: Status: Suspected Code(s): F25.1 - Schizoaffective disorder, depressive type (2) Auditory hallucinations: Status: Acute Code(s): R44.0 - Auditory hallucinations (3) Paranoid delusion: Status: Acute Code(s): F22 - Delusional disorders Plan Hospital course: On admission patient had psychotic symptoms as well as catatonic symptoms. Started on Ativan which has helped relieve his catatonic symptoms and he has now moved around, walking, talking, eating and drinking 11/17 Patient struggling with ongoing psychotic symptoms hearing auditory hallucinations that he is a piece of shit, saying no Dario... And telling him to kill himself. Patient however says he does not want to hurt himself and has no SI. Patient frequently expressing fears that drug dealers are going to find him and kill. Wax Pot Tender discussed medication management with patient and he is agreeable to starting a new antipsychotic medication of teletypewriter installer's choosing. Confirmed patient has not been drinking alcohol. Patient's previous admission to was his 1st psychiatric admission. During which time he failed the following medication trials: -Risperdal -Zyprexa -haloperidol ...though all of them were of limited trials 11/18 Patient remains with psychotic symptoms and says voices are still very bothersome. Tolerating Prolixin and agrees to increasing dose 11/21: Prazosin 1 mg HS for mgt of nightmares 11/22 Increase Prolixin to 5 mg tid Plan: Admit, CV, 15 minute checks Increase to Prolixin 5 mg mg t.i.d. Add Prolixin 2.5 mg t.i.d. p.r.n. for psychosis Discontinue Zyprexa; tried last admission with no effect Continue Ativan 1 mg q.i.d. to prevent return of catatonic symptoms DC CIWA; patient has not been drinking Collateral Contact Diagnostics as needed Encourage milieu [place] building Reason for continued inpatient stay Substantial Risk for: rapid decompensation Time Spent With Patient Time: Total time managing care of this patient today ____ minutes.
[2024-11-22 15:30] VITALS: BP 123/65; PULSE 118
[2024-11-22 20:00] VITALS: BP 117/61; PULSE 109; TEMP 36.4; O2SAT 99
[2024-11-22 21:34] VITALS: BP 114/61
[2024-11-22 21:35] VITALS: BP 117/61; PULSE 109
[2024-11-22 21:36] VITALS: BP 117/61
[2024-11-22] MEDS: Benztropine Mesylate 1 MG TABLET PO (21:36)
[2024-11-22] MEDS: Prazosin HCL 1 MG CAPSULE PO (21:36)
[2024-11-22] MEDS: Mirtazapine 15 MG TABLET PO (21:37)
[2024-11-23 08:15] VITALS: BP 134/65; PULSE 94; RESP 16; TEMP 36.4; O2SAT 96
[2024-11-23 09:52] VITALS: BP 134/65; BP 134/68; PULSE 94
[2024-11-23] MEDS: cloNIDine HCL 0.1 MG TABLET PO ×2 (09:52→21:06)
[2024-11-23] MEDS: Propranolol HCL 20 MG TABLET PO ×3 (09:52→21:06)
[2024-11-23] MEDS: Divalproex Sodium 250 MG TABLET.DR PO ×2 (09:53→14:48)
[2024-11-23] MEDS: LORazepam 1 MG TABLET PO ×4 (09:53→21:07)
[2024-11-23] MEDS: fluPHENAZine HCl 5 MG TABLET PO ×3 (09:53→21:06)
[2024-11-23] MEDS: Benztropine Mesylate 1 MG TABLET PO ×2 (11:09→21:06)
--- NOTE | 2024-11-23 11:16 | P.PNPSI_ITS ---
Subjective Subjective Date of Service: 11/23/24 Reason For Visit: Schizoaffective disorder Subjective Notes: Conditional Voluntary Healthcare Proxy: No Guardianship: No Medical Problems Affecting Mental Status: No Interim History: No voices Pt reports absence of auditory perceptual alterations. Anxiety still a factor. Discussed upcoming court date with pt, Jeanie WONG and [facility]. Pt is calmer about this issue, grounded, and will ask mother for more information so we may assist him in follow up with this appointment Medication Compliance: Yes Side effects from medications: No Attending Groups: Yes Review of Systems Acute medical concerns: No Medical Review of Systems: unchanged Review of Systems Review of Systems Yes all other systems are reviewed and are negative Mental Status Exam Mental Status Exam Patient Appearance: Appropriate Patient Orientation: Person, Place, Time and Situation Level of Consciousness: Alert Patient Behavior: Appropriate, Talkative, Cooperative and Good Eye Contact Mood Description: Apprehensive Affect Description: Apprehensive Patient Cognition Impaired: No Ability to Follow Directions: Good Speech Pattern: Spontaneous Speech Memory Description: Episodic Impaired Hallucinations: Auditory Delusions: Not Present Perceptual Disturbances: Depersonalization and Derealization Thought Process: Goal Oriented Thought Content: positive for Goal Oriented and positive for Suicidal Ideation (denies) Judgement: Good Diagnostics Vital Signs (24Hr): Vital Signs - 24 hr 11/22/24 15:30 11/22/24 20:00 11/22/24 21:34 Temperature 97.5 F Pulse Rate 118 H 109 H Respiratory Rate Blood Pressure 123/65 117/61 114/61 Pulse Oximetry 99 Oxygen Delivery Method Room Air 11/22/24 21:35 11/22/24 21:36 11/23/24 08:15 Temperature 97.6 F Pulse Rate 109 H 94 Respiratory Rate 16 Blood Pressure 117/61 117/61 134/65 Pulse Oximetry 96 Oxygen Delivery Method Room Air 11/23/24 09:52 11/23/24 09:52 Temperature Pulse Rate 94 Respiratory Rate Blood Pressure 134/65 134/68 Pulse Oximetry Oxygen Delivery Method BMI result Body Mass Index 50.4 Labs 11/14/24 13:50 11/14/24 13:50 Medications Medications Current Medications Acetaminophen (Acetaminophen 325 Mg Tablet) 650 mg PO Q6H PRN PRN Reason: Headache/Pain, Scale 1-10 Al Hydroxide/Mg Hydroxide (Magnesium Hydrox/Alum Hydrox 30 Ml Oral.Susp) 30 ml PO Q6H PRN PRN Reason: Heartburn/Nausea Benztropine Mesylate (Benztropine Mesylate 1 Mg Tablet) 1 mg PO BID [facility] Last Admin: 11/23/24 11:09 Dose: 1 mg Clonidine HCl (Clonidine Hcl 0.1 Mg Tablet) 0.1 mg PO BID [facility]; Protocol Last Admin: 11/23/24 09:52 Dose: 0.1 mg Divalproex Sodium (Divalproex Sodium 250 Mg Tablet.Dr) 250 mg PO TID [facility] Last Admin: 11/23/24 09:53 Dose: 250 mg Fluphenazine HCl (Fluphenazine Hcl 5 Mg Tablet) 5 mg PO TID PRN PRN Reason: psychosis Fluphenazine HCl (Fluphenazine Hcl 5 Mg Tablet) 5 mg PO TID [facility] Last Admin: 11/23/24 09:53 Dose: 5 mg Hydroxyzine HCl (Hydroxyzine Hcl 25 Mg Tablet) 25 mg PO Q6H PRN PRN Reason: mild anxiety Last Admin: 11/21/24 10:28 Dose: 25 mg Lorazepam (Lorazepam 1 Mg Tablet) 1 mg PO QID [facility] Last Admin: 11/23/24 09:53 Dose: 1 mg Magnesium Hydroxide (Milk Of Magnesia 30 Ml Oral.Susp) 30 ml PO DAILY PRN PRN Reason: Constipation Mirtazapine (Mirtazapine 15 Mg Tablet) 15 mg PO BEDTIME [facility] Last Admin: 11/22/24 21:37 Dose: 15 mg Nicotine (Nicotine 21 Mg Patch.Td24) 21 mg TRANSDERMA DAILY PRN PRN Reason: nicotine cravings Nicotine Polacrilex (Nicotine Polacrilex 2 Mg Gum) 4 mg BUCCAL Q2H PRN PRN Reason: Nicotine Cravings Prazosin HCl (Prazosin Hcl 1 Mg Capsule) 1 mg PO BEDTIME [facility]; Protocol Last Admin: 11/22/24 21:36 Dose: 1 mg Propranolol HCl (Propranolol Hcl 20 Mg Tablet) 20 mg PO TID [facility]; Protocol Last Admin: 11/23/24 09:52 Dose: 20 mg Trazodone HCl (Trazodone Hcl 50 Mg Tablet) 50 mg PO BEDTIME MRX1 PRN PRN Reason: Insomnia Allergies Allergies Allergy/AdvReac Type Severity Reaction Status Date / Time No Known Allergies Allergy Verified 11/14/24 12:28 Assessment & Plan Assessment & Plan (1) Schizoaffective disorder, depressive type: Status: Suspected Code(s): F25.1 - Schizoaffective disorder, depressive type (2) Auditory hallucinations: Status: Acute Code(s): R44.0 - Auditory hallucinations (3) Paranoid delusion: Status: Acute Code(s): F22 - Delusional disorders Plan Hospital course: On admission patient had psychotic symptoms as well as catatonic symptoms. Started on Ativan which has helped relieve his catatonic symptoms and he has now moved around, walking, talking, eating and drinking 11/17 Patient struggling with ongoing psychotic symptoms hearing auditory hallucinations that he is a piece of shit, saying no Dario... And telling him to kill himself. Patient however says he does not want to hurt himself and has no SI. Patient frequently expressing fears that drug dealers are going to find him and kill. Soda Drier Feeder discussed medication management with patient and he is agreeable to starting a new antipsychotic medication of keno writer's choosing. Confirmed patient has not been drinking alcohol. Patient's previous admission to was his 1st psychiatric admission. During which time he failed the following medication trials: -Risperdal -Zyprexa -haloperidol ...though all of them were of limited trials 11/18 Patient remains with psychotic symptoms and says voices are still very bothersome. Tolerating Prolixin and agrees to increasing dose 11/21: Prazosin 1 mg HS for mgt of nightmares 11/23: Increase Depakote to 375 mg tid Valproate Level, CBCD, CMP on 11/26 Plan: Admit, CV, 15 minute checks Increase to Prolixin 5 mg mg t.i.d. Add Prolixin 2.5 mg t.i.d. p.r.n. for psychosis Discontinue Zyprexa; tried last admission with no effect Continue Ativan 1 mg q.i.d. to prevent return of catatonic symptoms DC CIWA; patient has not been drinking Collateral Contact Diagnostics as needed Encourage milieu [place] building Reason for continued inpatient stay Substantial Risk for: rapid decompensation Time Spent With Patient Time: Total time managing care of this patient today ____ minutes.
[2024-11-23 14:49] VITALS: BP 135/60; PULSE 102
[2024-11-23 20:00] VITALS: BP 126/82; PULSE 117; RESP 18; TEMP 36.3; O2SAT 96
[2024-11-23] MEDS: Mirtazapine 15 MG TABLET PO (21:06)
[2024-11-23] MEDS: Divalproex Sodium 250 MG TABLET.DR 375 MG PO (21:06)
[2024-11-23] MEDS: Prazosin HCL 1 MG CAPSULE PO (21:07)
[2024-11-24 08:52] VITALS: BP 115/67; PULSE 99; RESP 16; TEMP 36.4; O2SAT 99
[2024-11-24] MEDS: cloNIDine HCL 0.1 MG TABLET PO ×2 (09:27→20:58)
[2024-11-24] MEDS: Propranolol HCL 20 MG TABLET PO ×3 (09:27→20:58)
[2024-11-24] MEDS: LORazepam 1 MG TABLET PO ×4 (09:28→20:58)
[2024-11-24] MEDS: fluPHENAZine HCl 5 MG TABLET PO ×3 (09:28→20:58)
[2024-11-24] MEDS: Benztropine Mesylate 1 MG TABLET PO ×2 (09:28→20:57)
[2024-11-24] MEDS: Divalproex Sodium 250 MG TABLET.DR 375 MG PO ×3 (10:07→20:57)
--- NOTE | 2024-11-24 18:01 | P.PNPSI_ITS ---
Subjective Subjective Date of Service: 11/24/24 Reason For Visit: Schizoaffective disorder Interim History: no questions or complaints. per staff, sleeping well. no AVH. had been psychotic/catatonic. Mental Status Exam Mental Status Exam Patient Appearance: Appropriate Patient Orientation: Person, Place, Time and Situation Level of Consciousness: Alert Patient Behavior: Appropriate, Cooperative and Good Eye Contact Mood Description: Apprehensive Affect Description: Apprehensive Patient Cognition Impaired: No Ability to Follow Directions: Good Speech Pattern: Spontaneous Speech Memory Description: Episodic Impaired Hallucinations: None Delusions: Not Present Perceptual Disturbances: Depersonalization and Derealization Thought Process: Goal Oriented Thought Content: positive for Goal Oriented and positive for Suicidal Ideation (denies) Judgement: Good Diagnostics Vital Signs (24Hr): Vital Signs - 24 hr 11/23/24 20:00 11/24/24 08:52 Temperature 97.3 F 97.6 F Pulse Rate 117 H 99 Respiratory Rate 18 16 Blood Pressure 126/82 115/67 Pulse Oximetry 96 99 Oxygen Delivery Method Room Air Room Air BMI result Body Mass Index 50.4 Labs 11/14/24 13:50 11/14/24 13:50 Medications Medications Current Medications Acetaminophen (Acetaminophen 325 Mg Tablet) 650 mg PO Q6H PRN PRN Reason: Headache/Pain, Scale 1-10 Al Hydroxide/Mg Hydroxide (Magnesium Hydrox/Alum Hydrox 30 Ml Oral.Susp) 30 ml PO Q6H PRN PRN Reason: Heartburn/Nausea Benztropine Mesylate (Benztropine Mesylate 1 Mg Tablet) 1 mg PO BID [facility] Last Admin: 11/24/24 09:28 Dose: 1 mg Clonidine HCl (Clonidine Hcl 0.1 Mg Tablet) 0.1 mg PO BID [facility]; Protocol Last Admin: 11/24/24 09:27 Dose: 0.1 mg Divalproex Sodium (Divalproex Sodium 250 Mg Tablet.Dr) 375 mg PO TID [facility] Last Admin: 11/24/24 15:49 Dose: 375 mg Fluphenazine HCl (Fluphenazine Hcl 5 Mg Tablet) 5 mg PO TID PRN PRN Reason: psychosis Fluphenazine HCl (Fluphenazine Hcl 5 Mg Tablet) 5 mg PO TID [facility] Last Admin: 11/24/24 15:49 Dose: 5 mg Hydroxyzine HCl (Hydroxyzine Hcl 25 Mg Tablet) 25 mg PO Q6H PRN PRN Reason: mild anxiety Last Admin: 11/21/24 10:28 Dose: 25 mg Lorazepam (Lorazepam 1 Mg Tablet) 1 mg PO QID [facility] Last Admin: 11/24/24 17:08 Dose: 1 mg Magnesium Hydroxide (Milk Of Magnesia 30 Ml Oral.Susp) 30 ml PO DAILY PRN PRN Reason: Constipation Mirtazapine (Mirtazapine 15 Mg Tablet) 15 mg PO BEDTIME [facility] Last Admin: 11/23/24 21:06 Dose: 15 mg Nicotine (Nicotine 21 Mg Patch.Td24) 21 mg TRANSDERMA DAILY PRN PRN Reason: nicotine cravings Nicotine Polacrilex (Nicotine Polacrilex 2 Mg Gum) 4 mg BUCCAL Q2H PRN PRN Reason: Nicotine Cravings Prazosin HCl (Prazosin Hcl 1 Mg Capsule) 1 mg PO BEDTIME [facility]; Protocol Last Admin: 11/23/24 21:07 Dose: 1 mg Propranolol HCl (Propranolol Hcl 20 Mg Tablet) 20 mg PO TID [facility]; Protocol Last Admin: 11/24/24 15:49 Dose: 20 mg Trazodone HCl (Trazodone Hcl 50 Mg Tablet) 50 mg PO BEDTIME MRX1 PRN PRN Reason: Insomnia Allergies Allergies Allergy/AdvReac Type Severity Reaction Status Date / Time No Known Allergies Allergy Verified 11/14/24 12:28 Assessment & Plan Assessment & Plan (1) Schizoaffective disorder, depressive type: Status: Suspected Code(s): F25.1 - Schizoaffective disorder, depressive type (2) Auditory hallucinations: Status: Acute Code(s): R44.0 - Auditory hallucinations (3) Paranoid delusion: Status: Acute Code(s): F22 - Delusional disorders Plan Hospital course: On admission patient had psychotic symptoms as well as catatonic symptoms. Started on Ativan which has helped relieve his catatonic symptoms and he has now moved around, walking, talking, eating and drinking 11/17 Patient struggling with ongoing psychotic symptoms hearing auditory hallucinations that he is a piece of shit, saying no Dario... And telling him to kill himself. Patient however says he does not want to hurt himself and has no SI. Patient frequently expressing fears that drug dealers are going to find him and kill. Test Development Engineer discussed medication management with patient and he is agreeable to starting a new antipsychotic medication of automotive service writer's choosing. Confirmed patient has not been drinking alcohol. Patient's previous admission to was his 1st psychiatric admission. During which time he failed the following medication trials: -Risperdal -Zyprexa -haloperidol ...though all of them were of limited trials 11/18 Patient remains with psychotic symptoms and says voices are still very bothersome. Tolerating Prolixin and agrees to increasing dose 11/21: Prazosin 1 mg HS for mgt of nightmares 11/23: Increase Depakote to 375 mg tid Valproate Level, CBCD, CMP on 11/26 11/24: stable. per staff, no longer c/o AVH. continue current mgmt. Plan: Admit, CV, 15 minute checks Increase to Prolixin 5 mg mg t.i.d. Add Prolixin 2.5 mg t.i.d. p.r.n. for psychosis Discontinue Zyprexa; tried last admission with no effect Continue Ativan 1 mg q.i.d. to prevent return of catatonic symptoms DC CIWA; patient has not been drinking Collateral Contact Diagnostics as needed Encourage milieu [place] building Reason for continued inpatient stay Substantial Risk for: inability to function and rapid decompensation Time Spent With Patient Time: Total time managing care of this patient today ____ minutes.
[2024-11-24 20:00] VITALS: BP 140/78; PULSE 115; RESP 18; TEMP 36.4; O2SAT 98
[2024-11-24] MEDS: Mirtazapine 15 MG TABLET PO (20:58)
[2024-11-24] MEDS: Prazosin HCL 1 MG CAPSULE PO (20:58)
[2024-11-25 08:20] VITALS: BP 143/70; PULSE 101; RESP 16; TEMP 36.4; O2SAT 98
[2024-11-25] MEDS: Propranolol HCL 20 MG TABLET PO ×3 (09:11→21:02)
[2024-11-25] MEDS: Benztropine Mesylate 1 MG TABLET PO ×2 (09:12→21:03)
[2024-11-25] MEDS: fluPHENAZine HCl 5 MG TABLET PO ×3 (09:12→21:03)
[2024-11-25] MEDS: cloNIDine HCL 0.1 MG TABLET PO ×2 (09:12→21:03)
[2024-11-25] MEDS: Divalproex Sodium 250 MG TABLET.DR 375 MG PO ×3 (09:12→21:01)
[2024-11-25] MEDS: LORazepam 1 MG TABLET PO ×4 (09:12→21:03)
--- NOTE | 2024-11-25 15:43 | HO.PSYCHPN ---
Subjective Subjective Date of Service: 11/25/24 Reason For Visit: Schizoaffective disorder Interim History: feeling well, no complaints or requests. per staff, dep 3. no AVH. sleeping well. showered today. doing laundry. Mental Status Exam Mental Status Exam Patient Appearance: Appropriate Patient Orientation: Person, Place, Time and Situation Level of Consciousness: Alert Patient Behavior: Appropriate, Cooperative and Good Eye Contact Mood Description: Apprehensive Affect Description: Apprehensive Patient Cognition Impaired: No Ability to Follow Directions: Good Speech Pattern: Spontaneous Speech Memory Description: Episodic Impaired Hallucinations: None Delusions: Not Present Perceptual Disturbances: Depersonalization and Derealization Thought Process: Goal Oriented Thought Content: positive for Goal Oriented Judgement: Good Diagnostics Vital Signs (24Hr): Vital Signs - 24 hr 11/24/24 20:00 11/25/24 08:20 Temperature 97.6 F 97.6 F Pulse Rate 115 H 101 H Respiratory Rate 18 16 Blood Pressure 140/78 H 143/70 H Pulse Oximetry 98 98 Oxygen Delivery Method Room Air Room Air BMI result Body Mass Index 50.4 Labs 11/14/24 13:50 11/14/24 13:50 Medications Medications Current Medications Acetaminophen (Acetaminophen 325 Mg Tablet) 650 mg PO Q6H PRN PRN Reason: Headache/Pain, Scale 1-10 Al Hydroxide/Mg Hydroxide (Magnesium Hydrox/Alum Hydrox 30 Ml Oral.Susp) 30 ml PO Q6H PRN PRN Reason: Heartburn/Nausea Benztropine Mesylate (Benztropine Mesylate 1 Mg Tablet) 1 mg PO BID [facility] Last Admin: 11/25/24 09:12 Dose: 1 mg Clonidine HCl (Clonidine Hcl 0.1 Mg Tablet) 0.1 mg PO BID [facility]; Protocol Last Admin: 11/25/24 09:12 Dose: 0.1 mg Divalproex Sodium (Divalproex Sodium 250 Mg Tablet.Dr) 375 mg PO TID [facility] Last Admin: 11/25/24 09:12 Dose: 375 mg Fluphenazine HCl (Fluphenazine Hcl 5 Mg Tablet) 5 mg PO TID PRN PRN Reason: psychosis Fluphenazine HCl (Fluphenazine Hcl 5 Mg Tablet) 5 mg PO TID [facility] Last Admin: 11/25/24 09:12 Dose: 5 mg Hydroxyzine HCl (Hydroxyzine Hcl 25 Mg Tablet) 25 mg PO Q6H PRN PRN Reason: mild anxiety Last Admin: 11/21/24 10:28 Dose: 25 mg Lorazepam (Lorazepam 1 Mg Tablet) 1 mg PO QID [facility] Last Admin: 11/25/24 12:52 Dose: 1 mg Magnesium Hydroxide (Milk Of Magnesia 30 Ml Oral.Susp) 30 ml PO DAILY PRN PRN Reason: Constipation Mirtazapine (Mirtazapine 15 Mg Tablet) 15 mg PO BEDTIME [facility] Last Admin: 11/24/24 20:58 Dose: 15 mg Nicotine (Nicotine 21 Mg Patch.Td24) 21 mg TRANSDERMA DAILY PRN PRN Reason: nicotine cravings Nicotine Polacrilex (Nicotine Polacrilex 2 Mg Gum) 4 mg BUCCAL Q2H PRN PRN Reason: Nicotine Cravings Prazosin HCl (Prazosin Hcl 1 Mg Capsule) 1 mg PO BEDTIME [facility]; Protocol Last Admin: 11/24/24 20:58 Dose: 1 mg Propranolol HCl (Propranolol Hcl 20 Mg Tablet) 20 mg PO TID [facility]; Protocol Last Admin: 11/25/24 09:11 Dose: 20 mg Trazodone HCl (Trazodone Hcl 50 Mg Tablet) 50 mg PO BEDTIME MRX1 PRN PRN Reason: Insomnia Allergies Allergies Allergy/AdvReac Type Severity Reaction Status Date / Time No Known Allergies Allergy Verified 11/14/24 12:28 Assessment & Plan Assessment & Plan (1) Schizoaffective disorder, depressive type: Status: Suspected Code(s): F25.1 - Schizoaffective disorder, depressive type (2) Auditory hallucinations: Status: Acute Code(s): R44.0 - Auditory hallucinations (3) Paranoid delusion: Status: Acute Code(s): F22 - Delusional disorders Plan Hospital course: On admission patient had psychotic symptoms as well as catatonic symptoms. Started on Ativan which has helped relieve his catatonic symptoms and he has now moved around, walking, talking, eating and drinking 11/17 Patient struggling with ongoing psychotic symptoms hearing auditory hallucinations that he is a piece of shit, saying no Dario... And telling him to kill himself. Patient however says he does not want to hurt himself and has no SI. Patient frequently expressing fears that drug dealers are going to find him and kill. Manager Of Case Management discussed medication management with patient and he is agreeable to starting a new antipsychotic medication of junior technical writer's choosing. Confirmed patient has not been drinking alcohol. Patient's previous admission to was his 1st psychiatric admission. During which time he failed the following medication trials: -Risperdal -Zyprexa -haloperidol ...though all of them were of limited trials 11/18 Patient remains with psychotic symptoms and says voices are still very bothersome. Tolerating Prolixin and agrees to increasing dose 11/21: Prazosin 1 mg HS for mgt of nightmares 11/23: Increase Depakote to 375 mg tid Valproate Level, CBCD, CMP on 11/26 11/24: stable. per staff, no longer c/o AVH. continue current mgmt. 11/25: improved, stable. showered, doing laundry, denying psych Sx. Plan: Admit, CV, 15 minute checks Increase to Prolixin 5 mg mg t.i.d. Add Prolixin 2.5 mg t.i.d. p.r.n. for psychosis Discontinue Zyprexa; tried last admission with no effect Continue Ativan 1 mg q.i.d. to prevent return of catatonic symptoms DC CIWA; patient has not been drinking Collateral Contact Diagnostics as needed Encourage milieu [place] building Reason for continued inpatient stay Substantial Risk for: inability to function Time Spent With Patient Time: Total time managing care of this patient today ____ minutes.
[2024-11-25 16:08] VITALS: BP 136/71
[2024-11-25 20:00] VITALS: BP 126/88; PULSE 105; RESP 15; TEMP 36.2; O2SAT 97
[2024-11-25] MEDS: Prazosin HCL 1 MG CAPSULE PO (21:02)
[2024-11-25] MEDS: Mirtazapine 15 MG TABLET PO (21:03)
[2024-11-26] VITALS (8 sets, daily range): BP systolic 121–139; BP diastolic 60–78; PULSE 94–111; RESP 16–18; TEMP 36.9–37.1; O2SAT 97
[2024-11-26 08:41] LABS: MANUAL DIFF FLAG NO
[2024-11-26 08:45] LABS: Basophils Absolute Auto 0.1 X10*3/uL (0.0-0.2); Basophils Percent Auto 0.4 % (0-2); Eosinophils Absolute Auto 0.2 X10*3/uL (0.0-0.4); Eosinophils Percent Auto 1.5 % (0-4); Hematocrit 46.1 % (42.0-52.0); Hemoglobin 15.6 g/dl (14.0-18.0); Imm Gran Abs Auto 0.13 X10*3/uL (0.00-0.03); Imm Gran Pct Auto 0.9 % (0.0-0.4); Lymphocytes Absolute Auto 2.9 X10*3/uL (1.2-4.9); Lymphocytes Percent Auto 20.4 % (20-40); Mean Corpuscular HGB Conc 33.8 g/dl (31.0-36.0); Mean Corpuscular Hemoglobin 29.9 pg (27.0-33.0); Mean Corpuscular Volume 88.3 fL (80.0-98.0); Mean Platelet Volume 10.1 fL (9.4-12.4); Monocytes Absolute Auto 1.1 X10*3/uL (0.1-1.2); Monocytes Percent Auto 8.1 % (2-11); Neutrophils Absolute Auto 9.6 x10*3/uL (2.0-8.3); Neutrophils Percent Auto 68.7 % (45-73); Platelet Count 278 X10*3/uL (160-400); Red Blood Count 5.22 X10*6/uL (4.60-5.80); Red Cell Distribution Width 12.8 % (11.0-16.0)
[2024-11-26 08:58] LABS: Valproate 55.6 mcg/mL (50.0-100.0)
[2024-11-26] MEDS: Divalproex Sodium 250 MG TABLET.DR 375 MG PO ×3 (08:58→21:53)
[2024-11-26] MEDS: fluPHENAZine HCl 5 MG TABLET PO ×3 (08:58→21:57)
[2024-11-26] MEDS: Propranolol HCL 20 MG TABLET PO ×3 (08:59→21:56)
[2024-11-26] MEDS: cloNIDine HCL 0.1 MG TABLET PO ×2 (09:00→21:54)
[2024-11-26] MEDS: Benztropine Mesylate 1 MG TABLET PO ×2 (09:01→21:54)
[2024-11-26] MEDS: LORazepam 1 MG TABLET PO ×3 (09:01→21:55)
[2024-11-26 09:02] LABS: Alanine Aminotransferase 42 U/L (0-40); Alkaline Phosphatase 88 U/L (39-117); Anion Gap 15 (12-20); Aspartate Amino Transferase 29 U/L (5-37); Bilirubin Total 0.4 mg/dL (0.0-1.0); Blood Urea Nitrogen 13 mg/dL (9-16); Calcium 9.1 mg/dL (8.4-10.2); Carbon Dioxide 20 mmol/L (22-29); Chloride 108 mmol/L (96-108); Estimated Glomerular Filt Rate > 60; Glucose Random 92 mg/dL (60-115); Potassium 4.3 mmol/L (3.3-5.1); Sodium 139 mmol/L (135-145); Total Protein 7.5 g/dL (6.5-8.0)
--- NOTE | 2024-11-26 09:40 | HO.PSYCHPN ---
Subjective Subjective Date of Service: 11/26/24 Reason For Visit: Schizoaffective disorder Subjective Notes: Conditional Voluntary Healthcare Proxy: No Guardianship: No Medical Problems Affecting Mental Status: No Interim History: Met with [place] and [facility] [place] Sales Manager. Pt reports doing well. Depression 3, Anxiety 5. Nightmares still at times. Pt discussed feeling prepared for discharge. Mother provided compliance attorney name for team Jian Ramsey [phone]. This is the family compliance attorney representing them for their immigration hearing on 11/28. Medication Compliance: Yes Side effects from medications: No Attending Groups: Intermittent Review of Systems Acute medical concerns: No Review of Systems Review of Systems denies Mental Status Exam Mental Status Exam Patient Appearance: Appropriate Patient Orientation: Person, Place, Time and Situation Level of Consciousness: Alert Patient Behavior: Appropriate, Talkative, Cooperative and Good Eye Contact Mood Description: Apprehensive Affect Description: Apprehensive Patient Cognition Impaired: No Ability to Follow Directions: Good Speech Pattern: Spontaneous Speech Memory Description: Intact Hallucinations: None Delusions: Not Present Thought Process: Intact Thought Content: positive for Intact and positive for Suicidal Ideation (denies) Depressive Symptoms: Increased Anxiety Judgement: Good Diagnostics Vital Signs (24Hr): Vital Signs - 24 hr 11/25/24 16:08 11/25/24 20:00 11/26/24 08:59 Temperature 97.1 F Pulse Rate 105 H 104 H Respiratory Rate 15 Blood Pressure 136/71 126/88 139/76 Pulse Oximetry 97 11/26/24 09:00 Temperature Pulse Rate Respiratory Rate Blood Pressure 139/76 Pulse Oximetry BMI result Body Mass Index 50.4 Labs 11/26/24 08:31 11/26/24 08:31 Labs: Laboratory Results - last 48 hr 11/26/24 08:31 WBC 14.0 H RBC 5.22 Hgb 15.6 Hct 46.1 MCV 88.3 MCH 29.9 MCHC 33.8 RDW 12.8 Plt Count 278 MPV 10.1 Immature Gran % (Auto) 0.9 H Neut % (Auto) 68.7 Lymph % (Auto) 20.4 [place] % (Auto) 8.1 Eos % (Auto) 1.5 Baso % (Auto) 0.4 Lymph # (Auto) 2.9 [place] # (Auto) 1.1 Eos # (Auto) 0.2 Baso # (Auto) 0.1 Abs Immat Gran (auto) 0.13 H Absolute Neuts (auto) 9.6 H Absolute Nucleated RBC 0.000 Nucleated RBC % (auto) 0.0 Sodium 139 Potassium 4.3 Chloride 108 Carbon Dioxide 20 L Anion Gap 15 BUN 13 Creatinine 0.68 Estim Creat Clear Calc 214.0 Estimated GFR > 60 Random Glucose 92 Calcium 9.1 Total Bilirubin 0.4 AST 29 ALT 42 H Alkaline Phosphatase 88 Total Protein 7.5 Albumin 4.0 Valproic Acid 55.6 Medications Medications Current Medications Acetaminophen (Acetaminophen 325 Mg Tablet) 650 mg PO Q6H PRN PRN Reason: Headache/Pain, Scale 1-10 Al Hydroxide/Mg Hydroxide (Magnesium Hydrox/Alum Hydrox 30 Ml Oral.Susp) 30 ml PO Q6H PRN PRN Reason: Heartburn/Nausea Benztropine Mesylate (Benztropine Mesylate 1 Mg Tablet) 1 mg PO BID COUNTS INCLUDE 234 BEDS AT THE [facility] Last Admin: 11/26/24 09:01 Dose: 1 mg Clonidine HCl (Clonidine Hcl 0.1 Mg Tablet) 0.1 mg PO BID COUNTS INCLUDE 234 BEDS AT THE [facility]; Protocol Last Admin: 11/26/24 09:00 Dose: 0.1 mg Divalproex Sodium (Divalproex Sodium 250 Mg Tablet.Dr) 375 mg PO TID COUNTS INCLUDE 234 BEDS AT THE [facility] Last Admin: 11/26/24 08:58 Dose: 375 mg Fluphenazine HCl (Fluphenazine Hcl 5 Mg Tablet) 5 mg PO TID PRN PRN Reason: psychosis Fluphenazine HCl (Fluphenazine Hcl 5 Mg Tablet) 5 mg PO TID COUNTS INCLUDE 234 BEDS AT THE [facility] Last Admin: 11/26/24 08:58 Dose: 5 mg Hydroxyzine HCl (Hydroxyzine Hcl 25 Mg Tablet) 25 mg PO Q6H PRN PRN Reason: mild anxiety Last Admin: 11/21/24 10:28 Dose: 25 mg Lorazepam (Lorazepam 1 Mg Tablet) 1 mg PO QID COUNTS INCLUDE 234 BEDS AT THE [facility] Last Admin: 11/26/24 09:01 Dose: 1 mg Magnesium Hydroxide (Milk Of Magnesia 30 Ml Oral.Susp) 30 ml PO DAILY PRN PRN Reason: Constipation Mirtazapine (Mirtazapine 15 Mg Tablet) 15 mg PO BEDTIME COUNTS INCLUDE 234 BEDS AT THE [facility] Last Admin: 11/25/24 21:03 Dose: 15 mg Nicotine (Nicotine 21 Mg Patch.Td24) 21 mg TRANSDERMA DAILY PRN PRN Reason: nicotine cravings Nicotine Polacrilex (Nicotine Polacrilex 2 Mg Gum) 4 mg BUCCAL Q2H PRN PRN Reason: Nicotine Cravings Prazosin HCl (Prazosin Hcl 1 Mg Capsule) 1 mg PO BEDTIME [facility]; Protocol Last Admin: 11/25/24 21:02 Dose: 1 mg Propranolol HCl (Propranolol Hcl 20 Mg Tablet) 20 mg PO TID [facility]; Protocol Last Admin: 11/26/24 08:59 Dose: 20 mg Trazodone HCl (Trazodone Hcl 50 Mg Tablet) 50 mg PO BEDTIME MRX1 PRN PRN Reason: Insomnia Allergies Allergies Allergy/AdvReac Type Severity Reaction Status Date / Time No Known Allergies Allergy Verified 11/14/24 12:28 Assessment & Plan Assessment & Plan (1) Schizoaffective disorder, depressive type: Status: Suspected Code(s): F25.1 - Schizoaffective disorder, depressive type (2) Auditory hallucinations: Status: Acute Code(s): R44.0 - Auditory hallucinations (3) Paranoid delusion: Status: Acute Code(s): F22 - Delusional disorders Plan Hospital course: On admission patient had psychotic symptoms as well as catatonic symptoms. Started on Ativan which has helped relieve his catatonic symptoms and he has now moved around, walking, talking, eating and drinking 11/17 Patient struggling with ongoing psychotic symptoms hearing auditory hallucinations that he is a piece of shit, saying no Dario... And telling him to kill himself. Patient however says he does not want to hurt himself and has no SI. Patient frequently expressing fears that drug dealers are going to find him and kill. Chuck Wagon Cook discussed medication management with patient and he is agreeable to starting a new antipsychotic medication of comic book writer's choosing. Confirmed patient has not been drinking alcohol. Patient's previous admission to was his 1st psychiatric admission. During which time he failed the following medication trials: -Risperdal -Zyprexa -haloperidol ...though all of them were of limited trials 11/18 Patient remains with psychotic symptoms and says voices are still very bothersome. Tolerating Prolixin and agrees to increasing dose 11/21: Prazosin 1 mg HS for mgt of nightmares 11/23: Increase Depakote to 375 mg tid Valproate Level, CBCD, CMP on 11/26 11/24: stable. per staff, no longer c/o [facility]. continue current mgmt. 11/25: improved, stable. showered, doing laundry, denying psych Sx. 11/26: Continue regime. DC 11/28 Plan: Admit, CV, 15 minute checks Increase to Prolixin 5 mg mg t.i.d. Add Prolixin 2.5 mg t.i.d. p.r.n. for psychosis Discontinue Zyprexa; tried last admission with no effect Continue Ativan 1 mg q.i.d. to prevent return of catatonic symptoms DC CIWA; patient has not been drinking Collateral Contact Diagnostics as needed Encourage milieu [place] building Reason for continued inpatient stay Substantial Risk for: rapid decompensation Time Spent With Patient Time: Total time managing care of this patient today ____ minutes.
[2024-11-26] MEDS: Prazosin HCL 1 MG CAPSULE PO (21:58)
[2024-11-26] MEDS: Mirtazapine 15 MG TABLET PO (21:58)
[2024-11-27] VITALS (7 sets, daily range): BP systolic 119–135; BP diastolic 57–74; PULSE 94–105; RESP 16–18; TEMP 36.8; O2SAT 97–98
[2024-11-27] MEDS: cloNIDine HCL 0.1 MG TABLET PO ×2 (08:25→21:57)
[2024-11-27] MEDS: LORazepam 1 MG TABLET PO ×3 (08:25→21:59)
[2024-11-27] MEDS: Divalproex Sodium 250 MG TABLET.DR 375 MG PO ×3 (08:25→21:57)
[2024-11-27] MEDS: Benztropine Mesylate 1 MG TABLET PO ×2 (08:26→22:01)
[2024-11-27] MEDS: Propranolol HCL 20 MG TABLET PO ×3 (08:26→22:01)
[2024-11-27] MEDS: fluPHENAZine HCl 5 MG TABLET PO ×3 (08:27→22:02)
--- NOTE | 2024-11-27 16:20 | HO.PSYCHPN ---
Subjective Subjective Date of Service: 11/27/24 Reason For Visit: Schizoaffective disorder Subjective Notes: Conditional Voluntary Healthcare Proxy: No Guardianship: No Medical Problems Affecting Mental Status: No Interim History: Met with pt, Jeanie Delatorre SECOND OPERATOR, [facility] [place] Home Aide Reports some anxiety. Showering with support from [facility] Occupational Therapist Agrees to [facility] referral Symtpoms he reports are managed. Will increase Prazosin to 2 mg HS for improved nightmare mgt. Medication Compliance: Yes Side effects from medications: No Attending Groups: Intermittent Review of Systems Acute medical concerns: No Review of Systems Review of Systems denies Mental Status Exam Mental Status Exam Patient Appearance: Appropriate Patient Orientation: Person, Place, Time and Situation Level of Consciousness: Alert Patient Behavior: Appropriate, Talkative, Cooperative and Good Eye Contact Mood Description: Apprehensive Affect Description: Apprehensive Patient Cognition Impaired: No Ability to Follow Directions: Good Speech Pattern: Spontaneous Speech Memory Description: Intact Hallucinations: None Delusions: Not Present Thought Process: Intact Thought Content: positive for Intact and positive for Suicidal Ideation (denies) Depressive Symptoms: Increased Anxiety Judgement: Good Diagnostics Vital Signs (24Hr): Vital Signs - 24 hr 11/26/24 19:50 11/26/24 21:54 11/26/24 21:56 Temperature 98.4 F Pulse Rate 95 94 Respiratory Rate 16 Blood Pressure 131/67 121/60 121/60 Pulse Oximetry 97 Oxygen Delivery Method Room Air 11/26/24 21:58 11/27/24 07:47 11/27/24 08:26 Temperature 98.3 F Pulse Rate 105 H 105 H Respiratory Rate 18 Blood Pressure 121/60 135/63 Pulse Oximetry 98 Oxygen Delivery Method Room Air 11/27/24 14:18 Temperature Pulse Rate 95 Respiratory Rate Blood Pressure 133/60 Pulse Oximetry Oxygen Delivery Method BMI result Body Mass Index 50.4 Labs 11/26/24 08:31 11/26/24 08:31 Labs: Laboratory Results - last 48 hr 11/26/24 08:31 WBC 14.0 H RBC 5.22 Hgb 15.6 Hct 46.1 MCV 88.3 MCH 29.9 MCHC 33.8 RDW 12.8 Plt Count 278 MPV 10.1 Immature Gran % (Auto) 0.9 H Neut % (Auto) 68.7 Lymph % (Auto) 20.4 [place] % (Auto) 8.1 Eos % (Auto) 1.5 Baso % (Auto) 0.4 Lymph # (Auto) 2.9 [place] # (Auto) 1.1 Eos # (Auto) 0.2 Baso # (Auto) 0.1 Abs Immat Gran (auto) 0.13 H Absolute Neuts (auto) 9.6 H Absolute Nucleated RBC 0.000 Nucleated RBC % (auto) 0.0 Sodium 139 Potassium 4.3 Chloride 108 Carbon Dioxide 20 L Anion Gap 15 BUN 13 Creatinine 0.68 Estim Creat Clear Calc 214.0 Estimated GFR > 60 Random Glucose 92 Calcium 9.1 Total Bilirubin 0.4 AST 29 ALT 42 H Alkaline Phosphatase 88 Total Protein 7.5 Albumin 4.0 Valproic Acid 55.6 Medications Medications Current Medications Acetaminophen (Acetaminophen 325 Mg Tablet) 650 mg PO Q6H PRN PRN Reason: Headache/Pain, Scale 1-10 Al Hydroxide/Mg Hydroxide (Magnesium Hydrox/Alum Hydrox 30 Ml Oral.Susp) 30 ml PO Q6H PRN PRN Reason: Heartburn/Nausea Benztropine Mesylate (Benztropine Mesylate 1 Mg Tablet) 1 mg PO BID [facility] Last Admin: 11/27/24 08:26 Dose: 1 mg Clonidine HCl (Clonidine Hcl 0.1 Mg Tablet) 0.1 mg PO BID [facility]; Protocol Last Admin: 11/27/24 08:25 Dose: 0.1 mg Divalproex Sodium (Divalproex Sodium 250 Mg Tablet.Dr) 375 mg PO TID [facility] Last Admin: 11/27/24 14:16 Dose: 375 mg Fluphenazine HCl (Fluphenazine Hcl 5 Mg Tablet) 5 mg PO TID PRN PRN Reason: psychosis Fluphenazine HCl (Fluphenazine Hcl 5 Mg Tablet) 5 mg PO TID [facility] Last Admin: 11/27/24 14:16 Dose: 5 mg Hydroxyzine HCl (Hydroxyzine Hcl 25 Mg Tablet) 25 mg PO Q6H PRN PRN Reason: mild anxiety Last Admin: 11/21/24 10:28 Dose: 25 mg Lorazepam (Lorazepam 1 Mg Tablet) 1 mg PO TID [facility] Last Admin: 11/27/24 14:16 Dose: 1 mg Magnesium Hydroxide (Milk Of Magnesia 30 Ml Oral.Susp) 30 ml PO DAILY PRN PRN Reason: Constipation Mirtazapine (Mirtazapine 15 Mg Tablet) 15 mg PO BEDTIME [facility] Last Admin: 11/26/24 21:58 Dose: 15 mg Nicotine (Nicotine 21 Mg Patch.Td24) 21 mg TRANSDERMA DAILY PRN PRN Reason: nicotine cravings Nicotine Polacrilex (Nicotine Polacrilex 2 Mg Gum) 4 mg BUCCAL Q2H PRN PRN Reason: Nicotine Cravings Prazosin HCl (Prazosin Hcl 1 Mg Capsule) 1 mg PO BEDTIME [facility]; Protocol Last Admin: 11/26/24 21:58 Dose: 1 mg Propranolol HCl (Propranolol Hcl 20 Mg Tablet) 20 mg PO TID [facility]; Protocol Last Admin: 11/27/24 14:18 Dose: 20 mg Trazodone HCl (Trazodone Hcl 50 Mg Tablet) 50 mg PO BEDTIME MRX1 PRN PRN Reason: Insomnia Allergies Allergies Allergy/AdvReac Type Severity Reaction Status Date / Time No Known Allergies Allergy Verified 11/14/24 12:28 Assessment & Plan Assessment & Plan (1) Schizoaffective disorder, depressive type: Status: Suspected Code(s): F25.1 - Schizoaffective disorder, depressive type (2) Auditory hallucinations: Status: Acute Code(s): R44.0 - Auditory hallucinations (3) Paranoid delusion: Status: Acute Code(s): F22 - Delusional disorders Plan Hospital course: On admission patient had psychotic symptoms as well as catatonic symptoms. Started on Ativan which has helped relieve his catatonic symptoms and he has now moved around, walking, talking, eating and drinking 11/17 Patient struggling with ongoing psychotic symptoms hearing auditory hallucinations that he is a piece of shit, saying no Dario... And telling him to kill himself. Patient however says he does not want to hurt himself and has no SI. Patient frequently expressing fears that drug dealers are going to find him and kill. Marketing Automation Analyst discussed medication management with patient and he is agreeable to starting a new antipsychotic medication of jingle writer's choosing. Confirmed patient has not been drinking alcohol. Patient's previous admission to was his 1st psychiatric admission. During which time he failed the following medication trials: -Risperdal -Zyprexa -haloperidol ...though all of them were of limited trials 11/18 Patient remains with psychotic symptoms and says voices are still very bothersome. Tolerating Prolixin and agrees to increasing dose 11/21: Prazosin 1 mg HS for mgt of nightmares 11/23: Increase Depakote to 375 mg tid Valproate Level, CBCD, CMP on 11/26 11/24: stable. per staff, no longer c/o [facility]. continue current mgmt. 11/25: improved, stable. showered, doing laundry, denying psych Sx. 11/27: DC 11/28. Valproate level 11/27. Plan: Admit, CV, 15 minute checks Increase to Prolixin 5 mg mg t.i.d. Add Prolixin 2.5 mg t.i.d. p.r.n. for psychosis Discontinue Zyprexa; tried last admission with no effect Continue Ativan 1 mg q.i.d. to prevent return of catatonic symptoms DC CIWA; patient has not been drinking Collateral Contact Diagnostics as needed Encourage milieu [place] building Reason for continued inpatient stay Substantial Risk for: stable for discharge Time Spent With Patient Time: Total time managing care of this patient today ____ minutes.
[2024-11-27] MEDS: Mirtazapine 15 MG TABLET PO (22:02)
[2024-11-27] MEDS: Prazosin HCL 1 MG CAPSULE 2 MG PO (22:03)
[2024-11-28 08:00] VITALS: BP 126/59; PULSE 90; RESP 18; TEMP 36.6; O2SAT 98
[2024-11-28] MEDS: Propranolol HCL 20 MG TABLET PO ×2 (08:33→14:08)
[2024-11-28] MEDS: Divalproex Sodium 250 MG TABLET.DR 375 MG PO ×2 (08:33→14:08)
[2024-11-28] MEDS: LORazepam 1 MG TABLET PO ×2 (08:34→14:08)
[2024-11-28] MEDS: fluPHENAZine HCl 5 MG TABLET PO ×2 (08:34→14:08)
[2024-11-28] MEDS: Benztropine Mesylate 1 MG TABLET PO (08:34)
[2024-11-28] MEDS: cloNIDine HCL 0.1 MG TABLET PO (08:34)
[2024-11-28 09:02] LABS: Valproate 54.6 mcg/mL (50.0-100.0)
[2024-11-28 14:08] VITALS: BP 135/85; PULSE 88
--- NOTE | 2024-12-23 06:47 | P.DS_ITS ---
DS: Providers Provider Date of Service: 11/28/24 Date of admission: 11/15/24 14:52 Date of discharge: 11/28/24 Primary care physician: Gio Physician Admitting clinician: Carla Corey Attending physician on admission: Erasmo Ellis Attending physician on discharge: Erasmo Ellis Discharging clinician: Carla Corey DS: Diagnosis Discharge Diagnosis (1) Schizoaffective disorder, depressive type: Status: Suspected (2) Auditory hallucinations: Status: Resolved (3) Paranoid delusion: Status: Resolved DS: Medications Discharge Medications Home Medications: Previous Rx's ?Medication ?Instructions ?Recorded benztropine 1 mg tablet 1 mg PO BID #60 tabs 11/27/24 clonidine HCl 0.1 mg tablet 0.1 mg PO BID #60 tabs 11/27/24 clonidine HCl 0.1 mg tablet 0.1 mg PO BID 30 days #60 tabs 11/27/24 divalproex 125 mg tablet,delayed 125 mg PO TID #90 tabs 11/27/24 release (Depakote) divalproex 250 mg tablet,delayed 250 mg PO TID #90 tabs 11/27/24 release (Depakote) fluphenazine HCl 5 mg tablet 5 mg PO TID #90 tabs 11/27/24 hydroxyzine HCl 25 mg tablet 25 mg PO Q6H PRN mild anxiety #30 11/27/24 tabs mirtazapine 15 mg tablet 15 mg PO BEDTIME #30 tabs 11/27/24 prazosin 1 mg capsule 2 mg PO BEDTIME #60 caps 11/27/24 propranolol 20 mg tablet 20 mg PO TID #90 tabs 11/27/24 trazodone 50 mg tablet 50 mg PO BEDTIME MRX1 PRN Insomnia 11/27/24 #30 tabs lorazepam 1 mg tablet (Ativan) 1 mg PO BID 30 days #60 tabs 11/28/24 Mental Status Exam Mental Status Exam Patient Appearance: Appropriate Patient Orientation: Person, Place, Time and Situation Level of Consciousness: Alert Patient Behavior: Appropriate, Talkative, Cooperative and Good Eye Contact Mood Description: Apprehensive Affect Description: Apprehensive Patient Cognition Impaired: No Ability to Follow Directions: Good Speech Pattern: Spontaneous Speech Memory Description: Intact Hallucinations: None Delusions: Not Present Thought Process: Intact Thought Content: positive for Intact and positive for Suicidal Ideation (denies) Depressive Symptoms: Increased Anxiety Judgement: Good DS: Summary Hospital Course Hospital Course: Admission to adult psychiatry for exacerbation of schizoaffective disorder. Pt presenting with increased fear, paranoia, command auditory hallucinations. Recent admits in local facilities with poor treatment compliance. Pt/family with concerns as he has no insurance and family has an upcoming hearing on remaining in [facility] as they are not established citizens yet, but are in process. Medications were evaluated and adjusted. Pt presented with catatonia at times. With time, pt was able to recover. Resources were identified for pt and family for ongoing treatment, low cost medications and pt has applied for insurance. He will discharge to family and will call/return as needed. Status at Discharge Functional status at discharge: independent ambulation Overall status at discharge: patient is progressing back to baseline Time Spent with Patient Time attestation: Total time managing care of this patient today ____ minutes. Discharge Plan Discharge Anticipated Discharge Date/Time: 11/27/24 12:00 Patient Disposition: Home, Self-Care Discharge Diagnosis: Schizoaffective Disorder Referrals: Department of Mental Health ([facility]) [Other] - 1 Week (A [facility] application has been submitted on your behalf, they will be calling you, please be on the look out for their call. ) Physician,None [Primary Care Provider] - 1 Week Discharge Medications: New clonidine HCl 0.1 mg Tablet 0.1 mg PO BID Qty: 60 0RF Protocol: Hold for SBP< HOLD for SBP < : 90 trazodone 50 mg Tablet 50 mg PO BEDTIME MRX1 PRN (Reason: Insomnia) Qty: 30 0RF prazosin 1 mg Capsule 2 mg PO BEDTIME Qty: 60 0RF Protocol: Hold for SBP< HOLD for SBP < : 90 benztropine 1 mg Tablet 1 mg PO BID Qty: 60 0RF hydroxyzine HCl 25 mg Tablet 25 mg PO Q6H PRN (Reason: mild anxiety) Qty: 30 0RF fluphenazine HCl 5 mg Tablet 5 mg PO TID Qty: 90 0RF divalproex [Depakote] 125 mg tablet,delayed release (DR/EC) 125 mg PO TID Qty: 90 0RF Rx Instructions: 375 mg three times per day divalproex [Depakote] 250 mg tablet,delayed release (DR/EC) 250 mg PO TID Qty: 90 0RF Rx Instructions: 375 mg three times per day lorazepam [Ativan] 1 mg tablet 1 mg PO BID 30 Days Qty: 60 0RF Continued clonidine HCl 0.1 mg Tablet 0.1 mg PO BID 30 Days Qty: 60 0RF Protocol: Hold for SBP< HOLD for SBP < : 90 mirtazapine 15 mg tablet 15 mg PO BEDTIME Qty: 30 0RF propranolol 20 mg tablet 20 mg PO TID Qty: 90 0RF Discontinued haloperidol 10 mg tablet 10 mg PO BID 30 Days Qty: 60 0RF Discharge Orders: Discharge Order (Routine); Ordered 11/28/24 Ordered By: Carla Corey Diet: Advance to usual diet Activity on Discharge: As tolerated Stand Alone Forms: Patient Portal Discharge page, Community Support Print Language: Irish Care Plan Goals: Mood and Behavioral Stabilization Health Concerns: Mood and Behavioral Stabilization Plan of Treatment: Attend scheduled appointments Take medicine as directed Call/Return if needed Assessment: Risk assessment at time of discharge:? Patient was interviewed prior to discharge and found to be fully oriented and without any SI or HI. Patient has improved insight and judgment and wants to continue treatment. Patient is not in imminent risk of harm to self or others and has a safety plan that includes presenting to the closest ER or calling 911 if feeling unsafe.? Patient has been observed closely by nursing and unit staff throughout admission; patient has not engaged in any behaviors that suggest dangerousness to self or others and has demonstrated appropriate behaviors and impulse control Discharge Date/Time: 11/28/24 15:47
== END 2024-11-28 15:47 | disposition home or self-care (01) | DRG 750 ==
LOC: HO.ED 11-15 07:45 → HO.PM5 11-15 14:53
PROVIDERS: Physician Assistant Medical; Admitting Provider Clinical Nurse Specialist Psychiatric/Mental Health, Adult; Emergency Provider Emergency Medicine; Visit Provider Clinical Nurse Specialist Psychiatric/Mental Health, Adult
DX: F25.1 Schizoaffective disorder, depressive type (principal); Z79.899 Other long term (current) drug therapy
CPT/HCPCS: 36415; 80053; 80143; 80164; 80179; 80307; 81003; 83735; 85025; 99285; S9485

== ENCOUNTER → 2024-11-15 14:52 | Outpatient (BNV) | payer MEDICAID, SELFPAY | PROVIDERS: Admitting Provider Clinical Nurse Specialist Psychiatric/Mental Health, Adult; Emergency Provider Emergency Medicine; Visit Provider Psychiatry & Neurology Psychiatry | DX: F25.1 Schizoaffective disorder, depressive type (principal); F22 Delusional disorders | CPT/HCPCS: 90792; 99232 ==

== ENCOUNTER 2024-12-09 12:06 | Inpatient (IN) | payer MEDICAID, OTHER, SELFPAY ==
--- NOTE | ~2024-12-09 | XR_ITS ---
EXAMINATION: XR ABDOMEN KUB CLINICAL INDICATION: constipation COMPARISON: None available. TECHNIQUE: AP view of the abdomen. FINDINGS: There is gas throughout the intestine. No intestinal dilatation. No air-fluid levels. Sacralization of L5. XR/XR KUB IMPRESSION: No intestinal obstruction pattern. Electronically signed by: Wero Montanez MD 12/17/2024 08:14 AM EDT
[2024-12-09 12:39] VITALS: BP 160/96; PULSE 132; RESP 20; TEMP 36.6; O2SAT 96; BMI 40.7
--- NOTE | 2024-12-09 12:46 | ECG_ITS ---
Test Reason : TACHYCARDIAC Blood Pressure : */* mmHG Vent. Rate : 120 BPM Atrial Rate : 120 BPM P-R Int : 134 ms QRS Dur : 84 ms QT Int : 314 ms P-R-T Axes : 32 56 13 degrees QTcB Int : 443 ms Sinus tachycardia Possible Inferior infarct , age undetermined Abnormal ECG No previous ECGs available Referred By: Antonella Miller Electronically Signed By: Vamshi Hubbard
--- NOTE | 2024-12-09 12:49 | ED.GENADULT ---
HPI - General Adult General Chief complaint: Psychiatric Symptoms Stated complaint: Crisis Time Seen by Provider: 12/09/24 12:46 Source: patient, EMS, RN notes reviewed and old records reviewed Mode of arrival: EMS Limitations: no limitations History of Present Illness ED Provider: Angela HPI narrative: Patient is a 24-year-old male with history of schizoaffective disorder, schizophreniform disorder presenting to the emergency department reporting auditory hallucinations, complains of eyes burning. He denies suicidal or homicidal ideation, visual hallucinations. Denies other physical complaints. States that he can not remember if he recently used any drugs or alcohol. Reportedly told others he use both marijuana and cocaine prior to arrival. Denies chest pain or palpitations, shortness of breath. Denies calf pain or swelling. Patient giving one-word answers to all questions. MD complaint: auditory hallucinations Related Data Previous Rx's ?Medication ?Instructions ?Recorded benztropine 1 mg tablet 1 mg PO BID #60 tabs 11/27/24 clonidine HCl 0.1 mg tablet 0.1 mg PO BID #60 tabs 11/27/24 clonidine HCl 0.1 mg tablet 0.1 mg PO BID 30 days #60 tabs 11/27/24 divalproex 125 mg tablet,delayed 125 mg PO TID #90 tabs 11/27/24 release (Depakote) divalproex 250 mg tablet,delayed 250 mg PO TID #90 tabs 11/27/24 release (Depakote) fluphenazine HCl 5 mg tablet 5 mg PO TID #90 tabs 11/27/24 hydroxyzine HCl 25 mg tablet 25 mg PO Q6H PRN mild anxiety #30 11/27/24 tabs mirtazapine 15 mg tablet 15 mg PO BEDTIME #30 tabs 11/27/24 prazosin 1 mg capsule 2 mg PO BEDTIME #60 caps 11/27/24 propranolol 20 mg tablet 20 mg PO TID #90 tabs 11/27/24 trazodone 50 mg tablet 50 mg PO BEDTIME MRX1 PRN Insomnia 11/27/24 #30 tabs lorazepam 1 mg tablet (Ativan) 1 mg PO BID 30 days #60 tabs 11/28/24 Allergies Allergy/AdvReac Type Severity Reaction Status Date / Time No Known Allergies Allergy Verified 12/09/24 12:43 Review of Systems Review of Systems: As per HPI Yes all other systems are reviewed and are negative Constitutional: Constitutional: Reports as per HPI [facility] Past Medical History Medical History Medical clearance for psychiatric admission Schizoaffective disorder, depressive type Social History Social History Household Members: Family Housing: Apartment Do you presently have visiting nurse or other home services: No Alcohol intake: current Patient Tobacco Use Status: Never used Tobacco Tobacco use type: Cigarette Cigarette Packs Per Day: 0.3 Cigarettes Per Day: 6.0 Years Smoked: 1 year Smoked in Last 30 Days: No Second Hand Smoke Exposure: No Use of substances other than those prescribed or required for medical reasons: Yes Substance Use Type: Marijuana Substance Use Frequency: Chronic Longstanding Last Used Substance: Unknown Any prior treatment program specific to substance use: No Advance Directives: No Advance Directives Information Provided: No Do you have a plan to hurt others: No Plan service: No Sexual orientation: Unable to collect Physical Exam ED Vital Signs: Vital Signs - 24 hr 12/09/24 12:39 12/09/24 13:47 12/09/24 14:36 Temperature 97.8 F 98.7 F Pulse Rate 132 H 122 H 118 H Respiratory Rate 20 15 Blood Pressure 160/96 H 146/88 H 162/95 H Pulse Oximetry 96 95 Oxygen Delivery Method Room Air Room Air BMI result Body Mass Index 40.7 Vital signs have been reviewed and appear to be correct. Blood pressure elevated. Heart rate tachycardic. Respiratory rate normal. Temperature normal. Oxygen saturation normal. Const General: cooperative and no acute distress Orientation/consciousness: oriented to person, oriented to place, oriented to time and patient oriented x3 Limitations: no limitations HENMT Head: Yes normocephalic and Yes atraumatic Ears: external ears normal General nose exam: Normal external nose present Face and sinus: Yes face symmetric Mouth: oropharynx normal and moist mucous membranes Throat: Yes uvula midline Eyes General: appearance normal, both eyes and all related structures Pupils: Equal, round and reactive pupils present Neck Neck: Yes normal visual inspection and Yes supple Resp Effort & Inspection: normal respiratory effort and able to speak in complete sentences Auscultation: clear to auscultation bilaterally Cardio Rate: regular rate Rhythm: regular rhythm Heart sounds: S1 normal heart sound present and S2 normal heart sound present GI Palpation (GI): Soft to palpation and nontender Auscultation: normoactive bowel sounds General: Yes no CVA tenderness Back/Spine/Pelvis Back: no CVA tenderness Skin General skin exam: elasticity normal and turgor normal Neuro General: oriented to person, oriented to place, oriented to time, patient oriented x3, moves all extremities, no focal motor deficits and CN's II-XI intact bilaterally Cranial nerves: Yes Equal, round and reactive pupils present Cognition (Neuro): normal cognition Extrem General: Yes full ROM, Yes no pedal edema and Yes no calf tenderness Psych Appearance: grossly normal Affect: Blunted affect present Attitude: Guarded attititude/behavior present Thought content: suicidality, no homicidality and Hallucination(s) present auditory; not visual Insight: Limited insight present (Psych) Judgement: Limited judgement present (Psych) Medical Decision Making Medical Decision Making [facility] Narrative: Patient is a 24-year-old male with history of schizoaffective disorder, schizophreniform disorder presenting to the emergency department reporting auditory hallucinations, complains of eyes burning. On exam patient is awake, A+Ox3, tachycardic, BP elevated, VS otherwise WNL, afebrile, normal neurological exam without focal deficits, physical exam findings as above. Given reported symptoms and physical exam findings, initial differential includes but is not limited to auditory hallucinations, drug or alcohol intoxication, electrolyte abnormality, schizoaffective disorder. EKG shows sinus tachycardia. Labs notable for mild leukocytosis which appears chronic, otherwise unremarkable. Urinalysis is without evidence of infection. Viral serology negative. Urine drug screen positive for THC only. Will medically clear patient at this time and place on physician observation for care team evaluation. Per CARE team, patient has not been able to obtain his medications due to insurance issues. They feel patient requires inpatient admission, section 12A signed by Dr. Wallace. Differential Diagnosis Differential Diagnoses: The differential diagnosis associated with the presentation includes As per [facility] Admission/Observation Consideration of admission/observation: Escalation of care including admission/observation considered Consult Healthcare Provider Management of the patient was discussed with: Behavioral Health Provider Lab Data [facility] Lab Attestation statement: I reviewed the patient's lab results. As per [facility] 12/09/24 13:16 12/09/24 13:16 Labs: Lab Results 12/09/24 12/09/24 Range/Units 13:16 13:23 WBC 14.9 H (4.8-10.8) X10*3/uL RBC 5.36 (4.60-5.80) X10*6/uL Hgb 16.4 (14.0-18.0) g/dl Hct 47.1 (42.0-52.0) % MCV 87.9 (80.0-98.0) fL MCH 30.6 (27.0-33.0) pg MCHC 34.8 (31.0-36.0) g/dl RDW 12.9 (11.0-16.0) % Plt Count 312 (160-400) X10*3/uL MPV 9.8 (9.4-12.4) fL Immature Gran % (Auto) 0.4 (0.0-0.4) % Neut % (Auto) 70.9 (45-73) % Lymph % (Auto) 18.3 L (20-40) % [place] % (Auto) 9.6 (2-11) % Eos % (Auto) 0.5 (0-4) % Baso % (Auto) 0.3 (0-2) % Lymph # (Auto) 2.7 (1.2-4.9) X10*3/uL [place] # (Auto) 1.4 H (0.1-1.2) X10*3/uL Eos # (Auto) 0.1 (0.0-0.4) X10*3/uL Baso # (Auto) 0.1 (0.0-0.2) X10*3/uL Abs Immat Gran (auto) 0.06 H (0.00-0.03) X10*3/uL Absolute Neuts (auto) 10.6 H (2.0-8.3) x10*3/uL Absolute Nucleated RBC 0.000 (0.0-0.012) X10*3/uL Nucleated RBC % (auto) 0.0 (0.0-0.2) /100WBC Sodium 141 (135-145) mmol/L Potassium 3.8 (3.3-5.1) mmol/L Chloride 108 (96-108) mmol/L Carbon Dioxide 24 (22-29) mmol/L Anion Gap 13 (12-20) BUN 10 (9-16) mg/dL Creatinine 0.69 (0.5-1.4) mg/dL Estim Creat Clear Calc 239.8 Estimated GFR > 60 Random Glucose 131 H (60-115) mg/dL Calcium 9.6 (8.4-10.2) mg/dL Total Bilirubin 0.7 (0.0-1.0) mg/dL AST 27 (5-37) U/L ALT 42 H (0-40) U/L Alkaline Phosphatase 80 (39-117) U/L Troponin I High Sens < 2.7 (<3.5-35.0) ng/L Total Protein 8.2 H (6.5-8.0) g/dL Albumin 4.4 (3.5-5.0) g/dL Urine Color Dark Yellow Urine Appearance Clear Urine pH 6.5 (5.0-9.0) Ur Specific [place] 1.025 (1.005-1.025) Urine Protein Trace (Neg-Trace) mg/dL Urine Glucose (UA) Negative (Negative) mg/dL Urine Ketones Trace (Negative) mg/dL Urine Blood Negative (Negative) Urine Nitrite Negative (Negative) Ur Leukocyte Esterase Negative (Negative) Urine Opiates Screen Not Detected (Not Detect) Ur Buprenorphine Scrn Not Detected (Not Detect) ng/mL Ur Oxycodone Screen Not Detected (Not Detect) ng/mL Urine Methadone Screen Not Detected (Not Detect) ng/mL Urine Fentanyl Screen Not Detected (Not Detect) Ur Barbiturates Screen Not Detected (Not Detect) Ur Phencyclidine Scrn Not Detected (Not Detect) Ur Amphetamines Screen Not Detected (Not Detect) U Benzodiazepines Scrn Not Detected (Not Detect) Urine Cocaine Screen Not Detected (Not Detect) U Marijuana (THC) Screen POSITIVE H (Not Detect) Ethyl Alcohol < 10 mg/dL Influenza Type A (PCR) NEGATIVE (Negative) Influenza Type B (PCR) NEGATIVE (Negative) RSV RNA Qual (PCR) NEGATIVE (Negative) SARS-CoV-2 RNA (RT-PCR) NEGATIVE (Negative) External Record Review External record reviewed: Inpatient record, Office record and Outpatient record Discharge Plan Discharge Clinical Impression: Schizoaffective disorder Patient Disposition: Still a Patient Prescriptions: No Action clonidine HCl 0.1 mg Tablet 0.1 mg PO BID Qty: 60 0RF Protocol: Hold for SBP< HOLD for SBP < : 90 trazodone 50 mg Tablet 50 mg PO BEDTIME MRX1 PRN (Reason: Insomnia) Qty: 30 0RF prazosin 1 mg Capsule 2 mg PO BEDTIME Qty: 60 0RF Protocol: Hold for SBP< HOLD for SBP < : 90 benztropine 1 mg Tablet 1 mg PO BID Qty: 60 0RF hydroxyzine HCl 25 mg Tablet 25 mg PO Q6H PRN (Reason: mild anxiety) Qty: 30 0RF fluphenazine HCl 5 mg Tablet 5 mg PO TID Qty: 90 0RF divalproex [Depakote] 125 mg tablet,delayed release (DR/EC) 125 mg PO TID Qty: 90 0RF Rx Instructions: 375 mg three times per day divalproex [Depakote] 250 mg tablet,delayed release (DR/EC) 250 mg PO TID Qty: 90 0RF Rx Instructions: 375 mg three times per day clonidine HCl 0.1 mg Tablet 0.1 mg PO BID 30 Days Qty: 60 0RF Protocol: Hold for SBP< HOLD for SBP < : 90 mirtazapine 15 mg tablet 15 mg PO BEDTIME Qty: 30 0RF propranolol 20 mg tablet 20 mg PO TID Qty: 90 0RF lorazepam [Ativan] 1 mg tablet 1 mg PO BID 30 Days Qty: 60 0RF Print Language: Sri Lankan
[2024-12-09 13:23] LABS: Basophils Absolute Auto 0.1 X10*3/uL (0.0-0.2); Basophils Percent Auto 0.3 % (0-2); Eosinophils Absolute Auto 0.1 X10*3/uL (0.0-0.4); Eosinophils Percent Auto 0.5 % (0-4); Hematocrit 47.1 % (42.0-52.0); Hemoglobin 16.4 g/dl (14.0-18.0); Imm Gran Abs Auto 0.06 X10*3/uL (0.00-0.03); Imm Gran Pct Auto 0.4 % (0.0-0.4); Lymphocytes Absolute Auto 2.7 X10*3/uL (1.2-4.9); Lymphocytes Percent Auto 18.3 % (20-40); MANUAL DIFF FLAG NO; Mean Corpuscular HGB Conc 34.8 g/dl (31.0-36.0); Mean Corpuscular Hemoglobin 30.6 pg (27.0-33.0); Mean Corpuscular Volume 87.9 fL (80.0-98.0); Mean Platelet Volume 9.8 fL (9.4-12.4); Monocytes Absolute Auto 1.4 X10*3/uL (0.1-1.2); Monocytes Percent Auto 9.6 % (2-11); Neutrophils Absolute Auto 10.6 x10*3/uL (2.0-8.3); Neutrophils Percent Auto 70.9 % (45-73); Platelet Count 312 X10*3/uL (160-400); Red Blood Count 5.36 X10*6/uL (4.60-5.80); Red Cell Distribution Width 12.9 % (11.0-16.0); White Blood Count 14.9 X10*3/uL (4.8-10.8)
[2024-12-09 13:34] LABS: Appearance Urine Clear; Color Urine Dark Yellow; Glucose Urine UA Negative (Negative); Leukocyte Esterase Urine Negative (Negative); Nitrite Urine Negative (Negative); PH 6.5 (5.0-9.0); Specific Gravity - Urine 1.025 (1.005-1.025); Urine Blood Negative (Negative); Urine Ketones Trace mg/dL (Negative); Urine Protein Trace mg/dL (Neg-Trace)
[2024-12-09 13:36] LABS: Ethanol < 10 mg/dL
[2024-12-09 13:37] LABS: Alanine Aminotransferase 42 U/L (0-40); Albumin Level 4.4 g/dL (3.5-5.0); Alkaline Phosphatase 80 U/L (39-117); Anion Gap 13 (12-20); Aspartate Amino Transferase 27 U/L (5-37); Bilirubin Total 0.7 mg/dL (0.0-1.0); Blood Urea Nitrogen 10 mg/dL (9-16); Calcium 9.6 mg/dL (8.4-10.2); Carbon Dioxide 24 mmol/L (22-29); Chloride 108 mmol/L (96-108); Creatinine Clr Calc Pharmacy 239.8; Estimated Glomerular Filt Rate > 60; Glucose Random 131 mg/dL (60-115); Potassium 3.8 mmol/L (3.3-5.1); Sodium 141 mmol/L (135-145); Total Protein 8.2 g/dL (6.5-8.0)
--- NOTE | 2024-12-09 13:42 | PC.NURSE ---
Pt endorses auditory hallucinations as the reason he hasn't been sleeping; pt doesn't want to discuss what the voices have been saying at this time; mother at bedside; labwork and EKG completed
[2024-12-09 13:47] VITALS: BP 146/88; PULSE 122
[2024-12-09 13:52] LABS: Troponin-I High Sensitivity < 2.7 ng/L (<3.5-35.0)
[2024-12-09 13:53] LABS: Amphetamine Screen Urine Not Detected (Not Detect); Barbiturates, Urine Not Detected (Not Detect); Benzodiazepines Screen Urine Not Detected (Not Detect); Buprenorphine Scr Not Detected (Not Detect); Cannabinoid Screen Urine POSITIVE (Not Detect); Cocaine Screen Urine Not Detected (Not Detect); Methadone Screen, Urine Not Detected (Not Detect); Opiate Screen Urine Not Detected (Not Detect); Oxycodone Screen Urine Not Detected (Not Detect); Phencyclidine Screen Urine Not Detected (Not Detect)
[2024-12-09 14:01] LABS: Fentanyl, urine Not Detected (Not Detect)
[2024-12-09 14:02] LABS: Influenza A PCR NEGATIVE (Negative); Influenza B PCR NEGATIVE (Negative); Resp Syncy Virus RNA Qual PCR NEGATIVE (Negative); SARS COV2 PCR INHOUSE NEGATIVE (Negative)
--- NOTE | 2024-12-09 14:15 | PC.NURSE ---
Care Team with pt/mother and professional development manager
[2024-12-09 14:36] VITALS: BP 162/95; PULSE 118; RESP 15; TEMP 37.1; O2SAT 95
[2024-12-09] MEDS: traZODone HCL 50 MG TABLET PO (23:38)
[2024-12-09] MEDS: LORazepam 1 MG TABLET PO (23:38)
--- NOTE | 2024-12-09 23:41 | PC.NURSE ---
Took over care from ANISA Andrade, pt wondering, medicated per mar.
--- NOTE | 2024-12-10 | ECG_ITS ---
Test Reason : TACHY Blood Pressure : */* mmHG Vent. Rate : 106 BPM Atrial Rate : 106 BPM P-R Int : 124 ms QRS Dur : 88 ms QT Int : 328 ms P-R-T Axes : 23 54 4 degrees QTcB Int : 435 ms Sinus tachycardia Possible Inferior infarct (cited on or before 09-Dec-2024) Abnormal ECG When compared with ECG of 09-Dec-2024 12:56, No significant change was found Referred By: Generic ED Physician Electronically Signed By: Vamshi Hubbard
[2024-12-10 05:35] VITALS: BP 156/92; PULSE 115; RESP 17; TEMP 37; O2SAT 97
--- NOTE | 2024-12-10 06:08 | PC.NURSE ---
pt pacing, now sitting in the common area.
--- NOTE | 2024-12-10 06:19 | PC.NURSE ---
completed med rec from medical chart. Notified Provider AMBERLY
--- NOTE | 2024-12-10 10:50 | MHC.CARE ---
Pt was inpatient and discharged on 11/28 with prescriptions, he has returned, medication non-adherent.? Pt?s Mother reports that the family cannot afford the cost of the prescriptions. CARE Team has spoken with Financial Counseling who reports that the [employer] that pt currently has does not cover the full (or perhaps any)cost of the prescriptions.? Pt is not a [place] Citizen so his availability of coverage is very limited. CARE Team contacts [facility].? CARE Team refers pt to [facility] for a primary Care Physician, it is noted that he has none.? Pt has an appointment with Luis Cervantes () on March 21, 2025 at 10:45AM.? It is hoped that, upon discharge from the inpatient unit, Dr. Chanel would be able to continue prescribing medications until pt secures a psychiatrist. If [facility] psychiat[facility] sends his prescriptions, upon discharge from the inpatient unit, to the [facility] pharmacy, he will be able to pick them up prior to his seeing Dr. Chanel in February.? CARE Team was advised that there would be no co pay associated with the prescriptions.
--- NOTE | 2024-12-10 10:54 | MHC.CARE ---
CARE Team calls [facility] to inquire about the availability of therapy for pt based on his current available insurance. [facility] reports that they do not accept pt's insurance.
[2024-12-10 12:31] VITALS: BMI 38.7
[2024-12-10 12:39] VITALS: BP 151/90; PULSE 114; RESP 17; TEMP 36.7; O2SAT 98
[2024-12-10] MEDS: LORazepam 1 MG TABLET PO ×3 (13:41→20:21)
[2024-12-10] MEDS: hydrOXYzine HCL 25 MG TABLET PO (13:41)
[2024-12-10 13:43] LABS: Alanine Aminotransferase 44 U/L (0-40); Albumin Level 4.7 g/dL (3.5-5.0); Alkaline Phosphatase 87 U/L (39-117); Anion Gap 15 (12-20); Aspartate Amino Transferase 32 U/L (5-37); Bilirubin Total 0.9 mg/dL (0.0-1.0); Blood Urea Nitrogen 14 mg/dL (9-16); Calcium 9.8 mg/dL (8.4-10.2); Carbon Dioxide 24 mmol/L (22-29); Chloride 108 mmol/L (96-108); Creatinine Clr Calc Pharmacy 217.7; Estimated Glomerular Filt Rate > 60; Glucose Fasting 110 mg/dL (60-99); Potassium 3.9 mmol/L (3.3-5.1); Sodium 143 mmol/L (135-145); Total Protein 8.9 g/dL (6.5-8.0)
[2024-12-10] MEDS: fluPHENAZine HCl 5 MG TABLET PO (14:30)
[2024-12-10] MEDS: Divalproex Sodium 250 MG TABLET.DR PO ×2 (14:30→20:21)
--- NOTE | 2024-12-10 15:29 | PC.ADMIT ---
Addendum entered by Ariana Person RN 12/10/24 17:24: Pt came to in the evening and requested medication for AH. He reports that they are telling him to kill himself but he does not have a plan and does not have SI- he is willing to come to staff if he has any. Original Note: Dario is a 24 year old male who was admitted to from [facility] at 12:10 with diagnosis of psychosis. Per the CARE team report Dario presented to the ED with his mother reporting command auditory?hallucinations telling him to kill himself. He denied SI/HI/VH. He reported he had not been taking any of his medications due to cost (insurance won't cover and mom said she can't afford it) , has?no outpatient providers, and had not been sleeping or eating for 3 days. He was last inpatient on ? on 11/28. Upon arrival to the unit, Dario was quiet, avoided eye contact, staring down at the ground, flat affect and soft spoken speech. He is disheveled and unkempt, skin and safety check performed and unremarkable. He signed a CV with Dr Cornell and was able to answer a few admission questions stating? yes or No se . Pt appears to be internally preoccupied at this time. Tox screen was positive for marijuana which he reports using daily. He required redirection a few times and was responsive. He reported hearing voices but did not share what they were saying. He denied SI/HI and when asked if he felt safe? nodded yes.?Medications have been resumed and Ativan started TID. Assisted with menu selection and? placed on q 15 min safety checks.?
[2024-12-10] MEDS: risperiDONE 2 MG TABLET PO ×2 (16:44→19:26)
[2024-12-10] MEDS: LORazepam 1 MG TABLET 2 MG PO (19:25)
[2024-12-10 20:00] VITALS: BP 133/61; PULSE 148; RESP 16; TEMP 36.8; O2SAT 98
[2024-12-10 20:22] VITALS: BP 133/61
[2024-12-10] MEDS: cloNIDine HCL 0.1 MG TABLET PO (20:22)
[2024-12-10 22:10] VITALS: BP 118/66; PULSE 132
[2024-12-11 08:00] VITALS: BP 157/94; PULSE 136; RESP 18; TEMP 36.9; O2SAT 98
[2024-12-11] MEDS: LORazepam 1 MG TABLET PO ×4 (08:38→22:08)
[2024-12-11 08:39] LABS: Estimated Average Glucose 103 mg/dL; Hemoglobin A1C 130.4654 umol/L; Hemoglobin A1c % 5.2 % (<6.0); Total Hemoglobin (HGBA1C) 3964.8057 umol/L
[2024-12-11] MEDS: Divalproex Sodium 250 MG TABLET.DR PO ×3 (08:39→22:08)
[2024-12-11] MEDS: cloNIDine HCL 0.1 MG TABLET PO ×2 (08:39→22:08)
[2024-12-11] MEDS: risperiDONE 2 MG TABLET PO ×3 (08:40→22:08)
[2024-12-11 08:41] LABS: Cholesterol 144 mg/dL (<200); HDL Cholesterol 35 mg/dL (>40); LDL Cholesterol Calculated 90 mg/dL (<100); Triglycerides 98 mg/dL (<150)
[2024-12-11] MEDS: Nicotine 21 MG PATCH.TD24 TRANSDERMA (08:41)
[2024-12-11] MEDS: fluPHENAZine HCl 5 MG TABLET PO (11:44)
--- NOTE | 2024-12-11 16:36 | P.PNPSI_ITS ---
Subjective Subjective Reason For Visit: Psychosis Diagnostics Vital Signs (24Hr): Vital Signs - 24 hr 12/10/24 20:00 12/10/24 20:22 12/10/24 22:10 Temperature 98.3 F Pulse Rate 148 H 132 H Respiratory Rate 16 Blood Pressure 133/61 133/61 118/66 Pulse Oximetry 98 Oxygen Delivery Method Room Air 12/11/24 08:00 Temperature 98.4 F Pulse Rate 136 H Respiratory Rate 18 Blood Pressure 157/94 H Pulse Oximetry 98 Oxygen Delivery Method Room Air BMI result Body Mass Index 38.7 Labs 12/09/24 13:16 12/10/24 12:55 Labs: Laboratory Results - last 48 hr 12/10/24 12/11/24 12:55 07:22 Sodium 143 Potassium 3.9 Chloride 108 Carbon Dioxide 24 Anion Gap 15 BUN 14 Creatinine 0.74 Estim Creat Clear Calc 217.7 Estimated GFR > 60 Fasting Glucose 110 H Estimat Average Glucose 103 Hemoglobin A1c % 5.2 Calcium 9.8 Total Bilirubin 0.9 AST 32 ALT 44 H Alkaline Phosphatase 87 Total Protein 8.9 H Albumin 4.7 Triglycerides 98 Cholesterol 144 LDL Cholesterol, Calc 90 HDL Cholesterol 35 L Medications Medications Current Medications Acetaminophen (Acetaminophen 325 Mg Tablet) 650 mg PO Q6H PRN PRN Reason: Headache/Pain, Scale 1-10 Al Hydroxide/Mg Hydroxide (Magnesium Hydrox/Alum Hydrox 30 Ml Oral.Susp) 30 ml PO Q6H PRN PRN Reason: Heartburn/Nausea Chlorpromazine HCl (Chlorpromazine Hcl 25 Mg Tablet) 50 mg PO QID PRN PRN Reason: psychosis, agitation Clonidine HCl (Clonidine Hcl 0.1 Mg Tablet) 0.1 mg PO BID [facility]; Protocol Last Admin: 12/11/24 08:39 Dose: 0.1 mg Divalproex Sodium (Divalproex Sodium 250 Mg Tablet.Dr) 250 mg PO TID [facility] Last Admin: 12/11/24 14:11 Dose: 250 mg Hydroxyzine HCl (Hydroxyzine Hcl 25 Mg Tablet) 25 mg PO Q6H PRN PRN Reason: mild anxiety Last Admin: 12/10/24 13:41 Dose: 25 mg Lorazepam (Lorazepam 0.5 Mg Tablet) 0.5 mg PO Q4H PRN PRN Reason: agitation Magnesium Hydroxide (Milk Of Magnesia 30 Ml Oral.Susp) 30 ml PO DAILY PRN PRN Reason: Constipation Nicotine (Nicotine 21 Mg Patch.Td24) 21 mg TRANSDERMA DAILY PRN PRN Reason: smoking cessation Last Admin: 12/11/24 08:41 Dose: 21 mg Nicotine Polacrilex (Nicotine Polacrilex 2 Mg Gum) 4 mg BUCCAL Q2H PRN PRN Reason: Nicotine Cravings Risperidone (Risperidone 2 Mg Tablet) 2 mg PO BID UZMA Last Admin: 12/11/24 08:40 Dose: 2 mg Risperidone (Risperidone 2 Mg Tablet) 2 mg PO BID PRN PRN Reason: voices, sx psychosis Last Admin: 12/11/24 14:11 Dose: 2 mg Trazodone HCl (Trazodone Hcl 50 Mg Tablet) 50 mg PO BEDTIME MRX1 PRN PRN Reason: Insomnia Allergies Allergies Allergy/AdvReac Type Severity Reaction Status Date / Time No Known Allergies Allergy Verified 12/09/24 12:43 Assessment & Plan Time Spent With Patient Time: Total time managing care of this patient today ____ minutes.
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
[2024-12-11] MEDS: chlorproMAZINE HCl 25 MG TABLET 50 MG PO (19:27)
[2024-12-11] MEDS: LORazepam 0.5 MG TABLET PO (19:27)
[2024-12-11 20:00] VITALS: BP 165/89; PULSE 130; RESP 16; TEMP 37.1; O2SAT 92
[2024-12-11 22:08] VITALS: BP 121/56
--- NOTE | 2024-12-12 | EEG_ITS ---
This is a 16 channel EEG with an EKG lead. The patient is reported sleeping during the tracing. Background EEG rhythm is low amplitude, mixed theta, beta with no obvious asymmetry or paroxysmal tendency. Photic stimulation does not produce any significant driving. Hyperventilation is not performed. No sharp wave spikes or paroxysmal tendencies noted. Cardiac lead does not reveal any significant abnormality. IMPRESSION: No significant abnormality noted on this EEG. MD SUNNY Geiger/ERWIN / [phone]
[2024-12-12] MEDS: cloNIDine HCL 0.1 MG TABLET PO ×2 (08:34→20:12)
[2024-12-12] MEDS: Divalproex Sodium 250 MG TABLET.DR PO ×3 (08:34→20:12)
[2024-12-12] MEDS: risperiDONE 2 MG TABLET PO ×2 (08:34→12:11)
[2024-12-12 08:39] VITALS: BP 145/96; PULSE 120; RESP 16; TEMP 36.2; O2SAT 97
--- NOTE | 2024-12-12 09:52 | P.PNPSI_ITS ---
Subjective Subjective Date of Service: 12/12/24 Reason For Visit: Psychosis Subjective Notes: Conditional Voluntary Healthcare Proxy: No Guardianship: No Medical Problems Affecting Mental Status: No Interim History: Pt experiencing medicine SE, stiffness, drooling, catatonic appearing at times. Team reports some disinhibitive episodes, intrusive episodes. Met with pt and stabilizer operator. Pt is non verbal, alert, appears catatonic, walking in the lemus, attentive to environment but appears psychotic. By history, pt reported he did not fill regime from last admission which was effective due to cost. Team did extensive research and did find that his new PCP at [facility] could help him out with co-payments. As a result, we will make a change back to the original regime which he tolerated and did well on during his last admission. [facility] plans to see pt on 12/13 to review his application for services. Medication Compliance: Yes Side effects from medications: Yes Attending Groups: No Review of Systems Acute medical concerns: No Medical Review of Systems: unchanged Review of Systems Review of Systems Yes Unobtainable due to mental status Mental Status Exam Mental Status Exam Patient Appearance: Fatigued, Disheveled, Perspiring, Unkempt and Malodorous Patient Orientation: Person Level of Consciousness: Alert Patient Behavior: Guarded, Talkative, Passive, Restless, Wandering, Anxious, Fearful, Fatigued, Distractible, Confused and Good Eye Contact Mood Description: Withdrawn, Depressed, Fearful and Anxious Affect Description: Suspicious, Withdrawn, Fearful, Anxious, Sad and Apprehensive Patient Cognition Impaired: Yes Ability to Follow Directions: Fair Speech Pattern: Impoverished, Soft-Spoken, Delayed, Poor Articulation and Long Pauses Memory Description: Remote Impaired Hallucinations: Auditory Delusions: Paranoid Ideation and Present Perceptual Disturbances: Derealization and Hallucinations Thought Process: Distracted, Rumination and Confusion Thought Content: positive for [place], positive for Perseveration, positive for Poverty of Content, positive for Preoccupation, positive for Thought Blocking and positive for Disorganized Depressive Symptoms: Insomnia, Diff. Making Decisions, Difficulty Sleeping, Significant Weight Gain and Thoughts of /Suicide Abnormal Motor Activity Signs and Symptoms: Restlessness Judgement: Poor Diagnostics Vital Signs (24Hr): Vital Signs - 24 hr 12/11/24 20:00 12/11/24 22:08 12/12/24 08:39 Temperature 98.7 F 97.1 F Pulse Rate 130 H 120 H Respiratory Rate 16 16 Blood Pressure 165/89 H 121/56 L 145/96 H Pulse Oximetry 92 97 Oxygen Delivery Method Room Air Room Air BMI result Body Mass Index 38.7 Labs 12/09/24 13:16 12/10/24 12:55 Labs: Laboratory Results - last 48 hr 12/10/24 12/11/24 12:55 07:22 Sodium 143 Potassium 3.9 Chloride 108 Carbon Dioxide 24 Anion Gap 15 BUN 14 Creatinine 0.74 Estim Creat Clear Calc 217.7 Estimated GFR > 60 Fasting Glucose 110 H Estimat Average Glucose 103 Hemoglobin A1c % 5.2 Calcium 9.8 Total Bilirubin 0.9 AST 32 ALT 44 H Alkaline Phosphatase 87 Total Protein 8.9 H Albumin 4.7 Triglycerides 98 Cholesterol 144 LDL Cholesterol, Calc 90 HDL Cholesterol 35 L Medications Medications Current Medications Acetaminophen (Acetaminophen 325 Mg Tablet) 650 mg PO Q6H PRN PRN Reason: Headache/Pain, Scale 1-10 Al Hydroxide/Mg Hydroxide (Magnesium Hydrox/Alum Hydrox 30 Ml Oral.Susp) 30 ml PO Q6H PRN PRN Reason: Heartburn/Nausea Chlorpromazine HCl (Chlorpromazine Hcl 25 Mg Tablet) 50 mg PO QID PRN PRN Reason: psychosis, agitation Last Admin: 12/11/24 19:27 Dose: 50 mg Clonidine HCl (Clonidine Hcl 0.1 Mg Tablet) 0.1 mg PO BID [facility]; Protocol Last Admin: 12/12/24 08:34 Dose: 0.1 mg Divalproex Sodium (Divalproex Sodium 250 Mg Tablet.Dr) 250 mg PO TID [facility] Last Admin: 12/12/24 08:34 Dose: 250 mg Hydroxyzine HCl (Hydroxyzine Hcl 25 Mg Tablet) 25 mg PO Q6H PRN PRN Reason: mild anxiety Last Admin: 12/10/24 13:41 Dose: 25 mg Lorazepam (Lorazepam 0.5 Mg Tablet) 0.5 mg PO Q4H PRN PRN Reason: agitation Last Admin: 12/11/24 19:27 Dose: 0.5 mg Magnesium Hydroxide (Milk Of Magnesia 30 Ml Oral.Susp) 30 ml PO DAILY PRN PRN Reason: Constipation Nicotine (Nicotine 21 Mg Patch.Td24) 21 mg TRANSDERMA DAILY PRN PRN Reason: smoking cessation Last Admin: 12/11/24 08:41 Dose: 21 mg Nicotine Polacrilex (Nicotine Polacrilex 2 Mg Gum) 4 mg BUCCAL Q2H PRN PRN Reason: Nicotine Cravings Risperidone (Risperidone 2 Mg Tablet) 2 mg PO BID [facility] Last Admin: 12/12/24 08:34 Dose: 2 mg Risperidone (Risperidone 2 Mg Tablet) 2 mg PO BID PRN PRN Reason: voices, sx psychosis Last Admin: 12/11/24 14:11 Dose: 2 mg Trazodone HCl (Trazodone Hcl 50 Mg Tablet) 50 mg PO BEDTIME MRX1 PRN PRN Reason: Insomnia Allergies Allergies Allergy/AdvReac Type Severity Reaction Status Date / Time No Known Allergies Allergy Verified 12/09/24 12:43 Assessment & Plan Assessment & Plan (1) Schizoaffective disorder: Status: Acute Code(s): F25.9 - Schizoaffective disorder, unspecified (2) Cannabis use disorder: Status: Acute Code(s): F12.90 - Cannabis use, unspecified, uncomplicated Plan Admit, CV, One to One-SI, Disinhbition, Acute Psychosis Diagnostics as needed Collateral contact Milieu integration as tolerated Risperdal 2 mg bid Decrease Lorazepam to 0.5 mg q4h prn (pt is disinhibited, exposing himself) Depakote-continue Clonidine-continue Chlorpromazine prn (olanzapine has not been helpful by history) 12/12: DC Risperdal, Chlorpromazine Prolixin 5 bid and tid prn psychosis Increase Lorazapam to 1 mg tid Fe, CPK, CBCD, Myoglobin, EEG, B12,Folate, TSH, Valproate Reason for continued inpatient stay Substantial Risk for: rapid decompensation and med/psych decompensation Time Spent With Patient Time: Total time managing care of this patient today ____ minutes.
[2024-12-12] MEDS: LORazepam 0.5 MG TABLET PO ×2 (10:54→14:12)
[2024-12-12] MEDS: chlorproMAZINE HCl 25 MG TABLET 50 MG PO (12:11)
[2024-12-12] MEDS: Benztropine Mesylate 1 MG TABLET PO ×2 (13:01→20:12)
[2024-12-12] MEDS: fluPHENAZine HCl 5 MG TABLET PO ×2 (14:12→20:12)
[2024-12-12 20:00] VITALS: BP 128/70; PULSE 120; RESP 18; TEMP 36.2; O2SAT 98
[2024-12-12] MEDS: LORazepam 1 MG TABLET PO (20:12)
[2024-12-12] MEDS: traZODone HCL 50 MG TABLET PO (23:38)
[2024-12-13] MEDS: hydrOXYzine HCL 25 MG TABLET PO (02:58)
[2024-12-13] MEDS: traZODone HCL 50 MG TABLET PO (02:58)
[2024-12-13] MEDS: LORazepam 0.5 MG TABLET PO (02:58)
[2024-12-13 07:00] VITALS: BMI 39.0
[2024-12-13 08:00] VITALS: BP 155/87; PULSE 96; RESP 16; TEMP 37.2; O2SAT 95
[2024-12-13] MEDS: cloNIDine HCL 0.1 MG TABLET PO ×2 (08:13→20:28)
[2024-12-13] MEDS: LORazepam 1 MG TABLET PO ×2 (08:13→14:11)
[2024-12-13] MEDS: fluPHENAZine HCl 5 MG TABLET PO ×2 (08:14→20:28)
[2024-12-13] MEDS: Benztropine Mesylate 1 MG TABLET PO ×2 (08:14→20:28)
[2024-12-13] MEDS: Divalproex Sodium 250 MG TABLET.DR PO ×3 (08:14→20:28)
[2024-12-13 08:38] LABS: MANUAL DIFF FLAG NO
[2024-12-13 08:43] LABS: Basophils Absolute Auto 0.1 X10*3/uL (0.0-0.2); Basophils Percent Auto 0.5 % (0-2); Eosinophils Absolute Auto 0.1 X10*3/uL (0.0-0.4); Eosinophils Percent Auto 0.8 % (0-4); Hematocrit 41.9 % (42.0-52.0); Hemoglobin 14.4 g/dl (14.0-18.0); Imm Gran Abs Auto 0.04 X10*3/uL (0.00-0.03); Imm Gran Pct Auto 0.4 % (0.0-0.4); Lymphocytes Percent Auto 29.3 % (20-40); Mean Corpuscular HGB Conc 34.4 g/dl (31.0-36.0); Mean Corpuscular Hemoglobin 30.6 pg (27.0-33.0); Mean Corpuscular Volume 89.1 fL (80.0-98.0); Mean Platelet Volume 10.1 fL (9.4-12.4); Monocytes Absolute Auto 0.8 X10*3/uL (0.1-1.2); Monocytes Percent Auto 8.1 % (2-11); Neutrophils Absolute Auto 6.3 x10*3/uL (2.0-8.3); Neutrophils Percent Auto 60.9 % (45-73); Platelet Count 250 X10*3/uL (160-400); Red Cell Distribution Width 12.7 % (11.0-16.0); White Blood Count 10.4 X10*3/uL (4.8-10.8)
[2024-12-13 09:02] LABS: Valproate 39.1 mcg/mL (50.0-100.0)
[2024-12-13 09:13] LABS: Iron 62 mcg/dL (45-160); Percent Iron Saturation 23 % (15-50); Total Iron Binding Capacity 270 mcg/dL (228-428); Unsaturated Iron Binding 208 ug/dL
[2024-12-13 09:28] LABS: Thyroid Stimulating Hormone 1.44 uIU/mL (0.32-4.0)
[2024-12-13 09:43] LABS: Folate 14.6 ng/mL (> or = 4.0); Vitamin B12 < 148 pg/mL (200-900)
[2024-12-13] MEDS: Thiamine HCL 100 MG TABLET 200 MG PO (10:30)
--- NOTE | 2024-12-13 12:21 | HO.PSYCHPN ---
Subjective Subjective Date of Service: 12/13/24 Reason For Visit: Psychosis Subjective Notes: Conditional Voluntary Healthcare Proxy: No Guardianship: No Medical Problems Affecting Mental Status: No Interim History: [facility] referral pending. 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 Catatonic, speaking minimally, intense eye contact- reports poor sleep, consistent voices. Disinhibited at times-alternates between 1-1 and 5 minute checks Medication Compliance: Yes Side effects from medications: Yes Attending Groups: No Review of Systems Acute medical concerns: No Review of Systems Review of Systems Denies Mental Status Exam Mental Status Exam Patient Appearance: Fatigued, Disheveled, Perspiring, Unkempt and Malodorous Patient Orientation: Person Level of Consciousness: Alert Patient Behavior: Guarded, Talkative, Passive, Restless, Wandering, Anxious, Fearful, Fatigued, Distractible, Confused and Good Eye Contact Mood Description: Withdrawn, Depressed, Fearful and Anxious Affect Description: Suspicious, Withdrawn, Fearful, Anxious, Sad and Apprehensive Patient Cognition Impaired: Yes Ability to Follow Directions: Fair Speech Pattern: Impoverished, Soft-Spoken, Delayed, Poor Articulation and Long Pauses Memory Description: Remote Impaired Hallucinations: Auditory Delusions: Paranoid Ideation and Present Perceptual Disturbances: Derealization and Hallucinations Thought Process: Distracted, Rumination and Confusion Thought Content: positive for [place], positive for Perseveration, positive for Poverty of Content, positive for Preoccupation, positive for Thought Blocking and positive for Disorganized Depressive Symptoms: Insomnia, Diff. Making Decisions, Difficulty Sleeping, Significant Weight Gain and Thoughts of /Suicide Abnormal Motor Activity Signs and Symptoms: Restlessness Judgement: Poor Diagnostics Vital Signs (24Hr): Vital Signs - 24 hr 12/12/24 20:00 12/13/24 08:00 Temperature 97.1 F 98.9 F Pulse Rate 120 H 96 Respiratory Rate 18 16 Blood Pressure 128/70 155/87 H Pulse Oximetry 98 95 Oxygen Delivery Method Room Air Room Air BMI result Body Mass Index 39.0 Labs 12/13/24 07:43 12/10/24 12:55 Labs: Laboratory Results - last 48 hr 12/13/24 07:43 WBC 10.4 RBC 4.70 Hgb 14.4 Hct 41.9 L MCV 89.1 MCH 30.6 MCHC 34.4 RDW 12.7 Plt Count 250 MPV 10.1 Immature Gran % (Auto) 0.4 Neut % (Auto) 60.9 Lymph % (Auto) 29.3 [place] % (Auto) 8.1 Eos % (Auto) 0.8 Baso % (Auto) 0.5 Lymph # (Auto) 3.0 [place] # (Auto) 0.8 Eos # (Auto) 0.1 Baso # (Auto) 0.1 Abs Immat Gran (auto) 0.04 H Absolute Neuts (auto) 6.3 Absolute Nucleated RBC 0.000 Nucleated RBC % (auto) 0.0 Iron 62 TIBC 270 % Saturation 23 Unsat Iron Binding 208 Total Creatine Kinase 177 H Vitamin B12 < 148 L Folate 14.6 TSH 1.44 Valproic Acid 39.1 L Medications Medications Current Medications Acetaminophen (Acetaminophen 325 Mg Tablet) 650 mg PO Q6H PRN PRN Reason: Headache/Pain, Scale 1-10 Al Hydroxide/Mg Hydroxide (Magnesium Hydrox/Alum Hydrox 30 Ml Oral.Susp) 30 ml PO Q6H PRN PRN Reason: Heartburn/Nausea Benztropine Mesylate (Benztropine Mesylate 1 Mg Tablet) 1 mg PO BID [facility] Last Admin: 12/13/24 08:14 Dose: 1 mg Clonidine HCl (Clonidine Hcl 0.1 Mg Tablet) 0.1 mg PO BID [facility]; Protocol Last Admin: 12/13/24 08:13 Dose: 0.1 mg Divalproex Sodium (Divalproex Sodium 250 Mg Tablet.Dr) 250 mg PO TID [facility] Last Admin: 12/13/24 08:14 Dose: 250 mg Fluphenazine HCl (Fluphenazine Hcl 5 Mg Tablet) 5 mg PO TID PRN PRN Reason: psychosis Fluphenazine HCl (Fluphenazine Hcl 5 Mg Tablet) 5 mg PO BID [facility] Last Admin: 12/13/24 08:14 Dose: 5 mg Hydroxyzine HCl (Hydroxyzine Hcl 25 Mg Tablet) 25 mg PO Q6H PRN PRN Reason: mild anxiety Last Admin: 12/13/24 02:58 Dose: 25 mg Lorazepam (Lorazepam 0.5 Mg Tablet) 0.5 mg PO Q4H PRN PRN Reason: agitation Last Admin: 12/13/24 02:58 Dose: 0.5 mg Lorazepam (Lorazepam 1 Mg Tablet) 1 mg PO TID [facility] Last Admin: 12/13/24 08:13 Dose: 1 mg Magnesium Hydroxide (Milk Of Magnesia 30 Ml Oral.Susp) 30 ml PO DAILY PRN PRN Reason: Constipation Nicotine (Nicotine 21 Mg Patch.Td24) 21 mg TRANSDERMA DAILY PRN PRN Reason: smoking cessation Last Admin: 12/11/24 08:41 Dose: 21 mg Nicotine Polacrilex (Nicotine Polacrilex 2 Mg Gum) 4 mg BUCCAL Q2H PRN PRN Reason: Nicotine Cravings Thiamine HCl (Thiamine Hcl 100 Mg Tablet) 200 mg PO DAILY [facility] Last Admin: 12/13/24 10:30 Dose: 200 mg Trazodone HCl (Trazodone Hcl 50 Mg Tablet) 50 mg PO BEDTIME MRX1 PRN PRN Reason: Insomnia Last Admin: 12/13/24 02:58 Dose: 50 mg Allergies Allergies Allergy/AdvReac Type Severity Reaction Status Date / Time No Known Allergies Allergy Verified 12/09/24 12:43 Assessment & Plan Assessment & Plan (1) Schizoaffective disorder: Status: Acute Code(s): F25.9 - Schizoaffective disorder, unspecified (2) Cannabis use disorder: Status: Acute Code(s): F12.90 - Cannabis use, unspecified, uncomplicated Plan Admit, CV, One to One-SI, Disinhbition, Acute Psychosis Diagnostics as needed Collateral contact Milieu integration as tolerated Risperdal 2 mg bid Decrease Lorazepam to 0.5 mg q4h prn (pt is disinhibited, exposing himself) Depakote-continue Clonidine-continue Chlorpromazine prn (olanzapine has not been helpful by history) 12/12: DC Risperdal, Chlorpromazine Prolixin 5 bid and tid prn psychosis Increase Lorazapam to 1 mg tid Fe, CPK, CBCD, Myoglobin, EEG, B12,Folate, TSH, Valproate 12/13- Increase Prolixin and Lorazepam Add Thiamine Reason for continued inpatient stay Substantial Risk for: rapid decompensation Time Spent With Patient Time: Total time managing care of this patient today ____ minutes.
[2024-12-13 19:57] VITALS: BP 161/89; PULSE 117; RESP 16; TEMP 37.2; O2SAT 97
[2024-12-13 20:28] VITALS: BP 133/73
[2024-12-13] MEDS: LORazepam 1 MG TABLET 2 MG PO (20:29)
[2024-12-14] MEDS: fluPHENAZine HCl 5 MG TABLET PO ×4 (05:04→22:09)
[2024-12-14] MEDS: LORazepam 0.5 MG TABLET PO (05:04)
[2024-12-14 07:48] VITALS: BP 141/99; PULSE 115; TEMP 36.6; O2SAT 98
[2024-12-14] MEDS: Thiamine HCL 100 MG TABLET 200 MG PO (08:36)
[2024-12-14] MEDS: LORazepam 1 MG TABLET 2 MG PO ×3 (08:36→22:10)
[2024-12-14] MEDS: Divalproex Sodium 250 MG TABLET.DR PO ×3 (08:37→22:10)
[2024-12-14] MEDS: Benztropine Mesylate 1 MG TABLET PO ×2 (08:37→22:10)
[2024-12-14] MEDS: cloNIDine HCL 0.1 MG TABLET PO ×2 (08:37→22:10)
--- NOTE | 2024-12-14 16:26 | P.PNPSI_ITS ---
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 Appears more alert today, increased verbal capacity. Approved for [facility] services Voices still present, insomnia still present Feeling overmedicated and undermedicated Reports constipation- KUB ordered. Medication Compliance: Yes Side effects from medications: Yes Attending Groups: No Review of Systems Acute medical concerns: No Review of Systems Review of Systems constipation Mental Status Exam Mental Status Exam Patient Appearance: Fatigued, Disheveled, Perspiring, Unkempt and Malodorous Patient Orientation: Person Level of Consciousness: Alert Patient Behavior: Guarded, Talkative, Passive, Restless, Wandering, Anxious, Fearful, Fatigued, Distractible, Confused and Good Eye Contact Mood Description: Withdrawn, Depressed, Fearful and Anxious Affect Description: Suspicious, Withdrawn, Fearful, Anxious, Sad and Apprehensive Patient Cognition Impaired: Yes Ability to Follow Directions: Fair Speech Pattern: Impoverished, Soft-Spoken, Delayed, Poor Articulation and Long Pauses Memory Description: Remote Impaired Hallucinations: Auditory Delusions: Paranoid Ideation and Present Perceptual Disturbances: Derealization and Hallucinations Thought Process: Distracted, Rumination and Confusion Thought Content: positive for [place], positive for Perseveration, positive for Poverty of Content, positive for Preoccupation, positive for Thought Blocking and positive for Disorganized Depressive Symptoms: Insomnia, Diff. Making Decisions, Difficulty Sleeping, Significant Weight Gain and Thoughts of /Suicide Abnormal Motor Activity Signs and Symptoms: Restlessness Judgement: Poor Diagnostics Vital Signs (24Hr): Vital Signs - 24 hr 12/13/24 19:57 12/13/24 20:28 12/14/24 07:48 Temperature 98.9 F 97.8 F Pulse Rate 117 H 115 H Respiratory Rate 16 Blood Pressure 161/89 H 133/73 141/99 H Pulse Oximetry 97 98 Oxygen Delivery Method Room Air Room Air BMI result Body Mass Index 39.0 Labs 12/13/24 07:43 12/10/24 12:55 Labs: Laboratory Results - last 48 hr 12/13/24 07:43 WBC 10.4 RBC 4.70 Hgb 14.4 Hct 41.9 L MCV 89.1 MCH 30.6 MCHC 34.4 RDW 12.7 Plt Count 250 MPV 10.1 Immature Gran % (Auto) 0.4 Neut % (Auto) 60.9 Lymph % (Auto) 29.3 [place] % (Auto) 8.1 Eos % (Auto) 0.8 Baso % (Auto) 0.5 Lymph # (Auto) 3.0 [place] # (Auto) 0.8 Eos # (Auto) 0.1 Baso # (Auto) 0.1 Abs Immat Gran (auto) 0.04 H Absolute Neuts (auto) 6.3 Absolute Nucleated RBC 0.000 Nucleated RBC % (auto) 0.0 Iron 62 TIBC 270 % Saturation 23 Unsat Iron Binding 208 Total Creatine Kinase 177 H Vitamin B12 < 148 L Folate 14.6 TSH 1.44 Valproic Acid 39.1 L Medications Medications Current Medications Acetaminophen (Acetaminophen 325 Mg Tablet) 650 mg PO Q6H PRN PRN Reason: Headache/Pain, Scale 1-10 Al Hydroxide/Mg Hydroxide (Magnesium Hydrox/Alum Hydrox 30 Ml Oral.Susp) 30 ml PO Q6H PRN PRN Reason: Heartburn/Nausea Benztropine Mesylate (Benztropine Mesylate 1 Mg Tablet) 1 mg PO BID [facility] Last Admin: 12/14/24 08:37 Dose: 1 mg Clonidine HCl (Clonidine Hcl 0.1 Mg Tablet) 0.1 mg PO BID [facility]; Protocol Last Admin: 12/14/24 08:37 Dose: 0.1 mg Divalproex Sodium (Divalproex Sodium 250 Mg Tablet.Dr) 250 mg PO TID [facility] Last Admin: 12/14/24 15:31 Dose: 250 mg Fluphenazine HCl (Fluphenazine Hcl 5 Mg Tablet) 5 mg PO TID PRN PRN Reason: psychosis Last Admin: 12/14/24 05:04 Dose: 5 mg Fluphenazine HCl (Fluphenazine Hcl 5 Mg Tablet) 5 mg PO TID [facility] Last Admin: 12/14/24 15:31 Dose: 5 mg Hydroxyzine HCl (Hydroxyzine Hcl 25 Mg Tablet) 25 mg PO Q6H PRN PRN Reason: mild anxiety Last Admin: 12/13/24 02:58 Dose: 25 mg Lorazepam (Lorazepam 0.5 Mg Tablet) 0.5 mg PO Q4H PRN PRN Reason: agitation Last Admin: 12/14/24 05:04 Dose: 0.5 mg Lorazepam (Lorazepam 1 Mg Tablet) 2 mg PO TID [facility] Last Admin: 12/14/24 15:31 Dose: 2 mg Magnesium Hydroxide (Milk Of Magnesia 30 Ml Oral.Susp) 30 ml PO DAILY PRN PRN Reason: Constipation Nicotine (Nicotine 21 Mg Patch.Td24) 21 mg TRANSDERMA DAILY PRN PRN Reason: smoking cessation Last Admin: 12/11/24 08:41 Dose: 21 mg Nicotine Polacrilex (Nicotine Polacrilex 2 Mg Gum) 4 mg BUCCAL Q2H PRN PRN Reason: Nicotine Cravings Thiamine HCl (Thiamine Hcl 100 Mg Tablet) 200 mg PO DAILY [facility] Last Admin: 12/14/24 08:36 Dose: 200 mg Trazodone HCl (Trazodone Hcl 50 Mg Tablet) 50 mg PO BEDTIME MRX1 PRN PRN Reason: Insomnia Last Admin: 12/13/24 02:58 Dose: 50 mg Allergies Allergies Allergy/AdvReac Type Severity Reaction Status Date / Time No Known Allergies Allergy Verified 12/09/24 12:43 Assessment & Plan Assessment & Plan (1) Schizoaffective disorder: Status: Acute Code(s): F25.9 - Schizoaffective disorder, unspecified (2) Cannabis use disorder: Status: Acute Code(s): F12.90 - Cannabis use, unspecified, uncomplicated Plan Admit, CV, One to One-SI, Disinhbition, Acute Psychosis Diagnostics as needed Collateral contact Milieu integration as tolerated Risperdal 2 mg bid Decrease Lorazepam to 0.5 mg q4h prn (pt is disinhibited, exposing himself) Depakote-continue Clonidine-continue Chlorpromazine prn (olanzapine has not been helpful by history) 12/12: DC Risperdal, Chlorpromazine Prolixin 5 bid and tid prn psychosis Increase Lorazapam to 1 mg tid Fe, CPK, CBCD, Myoglobin, EEG, B12,Folate, TSH, Valproate 12/14: KUB Continue current regime Reason for continued inpatient stay Substantial Risk for: rapid decompensation and med/psych decompensation Time Spent With Patient Time: Total time managing care of this patient today ____ minutes.
[2024-12-14 20:00] VITALS: BP 143/75; PULSE 111; RESP 16; TEMP 37.2; O2SAT 97
[2024-12-14 22:10] VITALS: BP 143/75
[2024-12-15] MEDS: traZODone HCL 50 MG TABLET PO ×2 (03:49→21:03)
[2024-12-15 07:57] VITALS: BP 124/62; PULSE 98; RESP 18; TEMP 37.1; O2SAT 97
[2024-12-15] MEDS: Divalproex Sodium 250 MG TABLET.DR PO (07:59)
[2024-12-15] MEDS: fluPHENAZine HCl 5 MG TABLET PO (07:59)
[2024-12-15] MEDS: LORazepam 1 MG TABLET 2 MG PO ×4 (07:59→21:03)
[2024-12-15] MEDS: cloNIDine HCL 0.1 MG TABLET PO ×2 (08:00→21:03)
[2024-12-15] MEDS: Benztropine Mesylate 1 MG TABLET PO (08:00)
[2024-12-15] MEDS: Thiamine HCL 100 MG TABLET 200 MG PO (08:00)
[2024-12-15 09:20] VITALS: BP 127/75; PULSE 105; TEMP 36.8
--- NOTE | 2024-12-15 09:20 | HO.PSYCHPN ---
Subjective Subjective Date of Service: 12/15/24 Reason For Visit: Psychosis Interim History: met with patient; discussed with team; reviewed chart Earlier this morning nose bleed which however resolved on its own remains with significant catatonic symptoms Increased to Ativan 2mg QID and patient soon talked a little bit more (initially lowered out of concern that it was disinhibited patient who was disrobing, however patient is disrobing seems more likely to be due to his psychotic disorganization than to Ativan; currently primary goal is to treat catatonia). For now Discontinued Fluphenazine out of concern for antipsychotic being contributory to catatonia (also dc'd Depakote out of an abundance of caution) Pt had told staff he has not had BM; KUB ordered but impression pending...Ordered Mirralx since no laxative ordered. Mental Status Exam Mental Status Exam Patient Appearance: Fatigued, Disheveled, Perspiring, Unkempt and Malodorous Patient Orientation: Person Level of Consciousness: Alert Patient Behavior: Passive, Restless, Wandering (aimlessly ), Anxious, Fearful, Confused and Poor Eye Contact (staring ) Mood Description: Fearful Affect Description: Fearful, Anxious and Blunted Patient Cognition Impaired: Yes Ability to Follow Directions: Fair (limited ) Speech Pattern: Impoverished, Soft-Spoken, Delayed, Poor Articulation and Long Pauses Memory Description: Remote Impaired Hallucinations: Auditory Delusions: Paranoid Ideation and Present Perceptual Disturbances: Derealization and Hallucinations Thought Process: Distracted, Rumination and Confusion Thought Content: positive for [place], positive for Perseveration, positive for Poverty of Content, positive for Preoccupation, positive for Thought Blocking and positive for Disorganized Depressive Symptoms: Thoughts of /Suicide Abnormal Motor Activity Signs and Symptoms: Restlessness Judgement: Poor Judgement and Insight: Impair Diagnostics Vital Signs (24Hr): Vital Signs - 24 hr 12/14/24 20:00 12/14/24 22:10 12/15/24 07:57 Temperature 98.9 F 98.7 F Pulse Rate 111 H 98 Respiratory Rate 16 18 Blood Pressure 143/75 H 143/75 H 124/62 Pulse Oximetry 97 97 Oxygen Delivery Method Room Air Room Air BMI result Body Mass Index 39.0 Labs 12/13/24 07:43 12/10/24 12:55 Labs: Laboratory Results - last 48 hr 12/13/24 07:43 Vitamin B12 < 148 L Folate 14.6 TSH 1.44 Medications Medications Current Medications Acetaminophen (Acetaminophen 325 Mg Tablet) 650 mg PO Q6H PRN PRN Reason: Headache/Pain, Scale 1-10 Al Hydroxide/Mg Hydroxide (Magnesium Hydrox/Alum Hydrox 30 Ml Oral.Susp) 30 ml PO Q6H PRN PRN Reason: Heartburn/Nausea Benztropine Mesylate (Benztropine Mesylate 1 Mg Tablet) 1 mg PO BID [facility] Last Admin: 12/15/24 08:00 Dose: 1 mg Clonidine HCl (Clonidine Hcl 0.1 Mg Tablet) 0.1 mg PO BID [facility]; Protocol Last Admin: 12/15/24 08:00 Dose: 0.1 mg Fluphenazine HCl (Fluphenazine Hcl 5 Mg Tablet) 5 mg PO TID PRN PRN Reason: psychosis Last Admin: 12/14/24 05:04 Dose: 5 mg Hydroxyzine HCl (Hydroxyzine Hcl 25 Mg Tablet) 25 mg PO Q6H PRN PRN Reason: mild anxiety Last Admin: 12/13/24 02:58 Dose: 25 mg Lorazepam (Lorazepam 0.5 Mg Tablet) 0.5 mg PO Q4H PRN PRN Reason: agitation Last Admin: 12/14/24 05:04 Dose: 0.5 mg Lorazepam (Lorazepam 1 Mg Tablet) 2 mg PO QID [facility] Magnesium Hydroxide (Milk Of Magnesia 30 Ml Oral.Susp) 30 ml PO DAILY PRN PRN Reason: Constipation Nicotine (Nicotine 21 Mg Patch.Td24) 21 mg TRANSDERMA DAILY PRN PRN Reason: smoking cessation Last Admin: 12/11/24 08:41 Dose: 21 mg Nicotine Polacrilex (Nicotine Polacrilex 2 Mg Gum) 4 mg BUCCAL Q2H PRN PRN Reason: Nicotine Cravings Thiamine HCl (Thiamine Hcl 100 Mg Tablet) 200 mg PO DAILY [facility] Last Admin: 12/15/24 08:00 Dose: 200 mg Trazodone HCl (Trazodone Hcl 50 Mg Tablet) 50 mg PO BEDTIME MRX1 PRN PRN Reason: Insomnia Last Admin: 12/15/24 03:49 Dose: 50 mg Allergies Allergies Allergy/AdvReac Type Severity Reaction Status Date / Time No Known Allergies Allergy Verified 12/09/24 12:43 Assessment & Plan Assessment & Plan (1) Catatonia: Status: Acute Code(s): F06.1 - Catatonic disorder due to known physiological condition (2) Schizoaffective disorder: Status: Acute Code(s): F25.9 - Schizoaffective disorder, unspecified (3) Cannabis use disorder: Status: Acute Code(s): F12.90 - Cannabis use, unspecified, uncomplicated Plan Admit, CV, One to One-SI, Disinhbition, Acute Psychosis Diagnostics as needed Collateral contact Milieu integration as tolerated Risperdal 2 mg bid Decrease Lorazepam to 0.5 mg q4h prn (pt is disinhibited, exposing himself) Depakote-continue Clonidine-continue Chlorpromazine prn (olanzapine has not been helpful by history) 12/12: DC Risperdal, Chlorpromazine Prolixin 5 bid and tid prn psychosis Increase Lorazapam to 1 mg tid Fe, CPK, CBCD, Myoglobin, EEG, B12,Folate, TSH, Valproate 12/14: KUB Continue current regime 12/15 remains with significant catatonic symptoms 1) Increased to Ativan 2mg QID. With increased dose, patient soon talked a little bit more (Ativan initially lowered out of concern that it was disinhibiting patient who was disrobing, however it seems more likely that this behavior is due to his psychotic disorganization than to effects of Ativan; currently. primary goal is to treat catatonia). 2)Discontinued Fluphenazine (for now) out of concern for antipsychotic being contributory to catatonia (also dc'd Depakote out of an abundance of caution) -Pt had told staff he has not had BM; KUB ordered but impression pending...Ordered Mirralx since no laxative ordered. Had nose bleed this morning which resolved on its own Patient educated on: diagnosis and medication risk/benefits Informed Consent: does not understand Reason for continued inpatient stay Substantial Risk for: inability to function Time Spent With Patient Time: Total time managing care of this patient today ____ minutes.
[2024-12-15 11:00] VITALS: BP 133/81; PULSE 105; RESP 18; TEMP 36.6
[2024-12-15 11:10] VITALS: BP 133/81; PULSE 105; RESP 18; TEMP 36.6; O2SAT 98
[2024-12-15] MEDS: polyethylene glycoL 3350 17 GM POWD.PACK PO (11:21)
--- NOTE | 2024-12-15 11:44 | PC.NURSE ---
Pt continues on 1:1 for disorganized behaviors. At 1100 technical writer called to room due to a witnessed fall. Per 1:1 sitter, pt reportedly attempted to get out of bed quickly, appeared to get tangled in his blankets, and rolled onto the floor. Pt able to stand up unassisted. No apparent injuries. Pt verbalized that he did hit the back of his head, however denied any pain/discomfort. ROM remains unchanged. VS obtained and documented. During post fall assessment it was noted that pt's pants were soaked in urine. Pt verbalized that he needed to use the bathroom. Pt was assisted to bathroom and proceeded to void into toilet. Pt was then assisted with changing into clean pants. Covering provider Dr. Cornell made aware, no new orders at this time. Covering nursing special services supervisor and charge account clerk made aware of fall. Will continue to monitor for any changes in pt's condition.
[2024-12-15 20:00] VITALS: BP 134/82; PULSE 102; RESP 16; TEMP 36.6; O2SAT 98
[2024-12-15 21:03] VITALS: BP 128/61
[2024-12-15] MEDS: hydrOXYzine HCL 25 MG TABLET PO (23:39)
[2024-12-15] MEDS: LORazepam 0.5 MG TABLET PO (23:39)
[2024-12-16 08:27] VITALS: BP 137/87; PULSE 112; RESP 16; TEMP 36.9; O2SAT 100
[2024-12-16] MEDS: polyethylene glycoL 3350 17 GM POWD.PACK PO (08:29)
[2024-12-16] MEDS: LORazepam 1 MG TABLET 2 MG PO ×4 (08:30→21:28)
[2024-12-16] MEDS: Thiamine HCL 100 MG TABLET 200 MG PO (08:30)
[2024-12-16] MEDS: cloNIDine HCL 0.1 MG TABLET PO ×2 (08:31→21:31)
--- NOTE | 2024-12-16 08:52 | HO.PSYCHPN ---
Subjective Subjective Date of Service: 12/16/24 Reason For Visit: Psychosis Interim History: met with pt; discussed with team still catatonic but a little more activity and talking a little more; though one word answers, pt responding appropriately to questions when asks. Says no voices, but later says AH remains. Mental Status Exam Mental Status Exam Patient Appearance: Fatigued, Perspiring and Unkempt Patient Orientation: Person Level of Consciousness: Alert Patient Behavior: Passive, Restless, Wandering (aimlessly ), Anxious, Fearful, Confused and Poor Eye Contact (staring ) Mood Description: Fearful Affect Description: Fearful, Anxious and Blunted Patient Cognition Impaired: Yes Ability to Follow Directions: Fair (limited ) Speech Pattern: Impoverished, Soft-Spoken, Delayed, Poor Articulation and Long Pauses Memory Description: Remote Impaired Hallucinations: Auditory Delusions: Paranoid Ideation and Present Perceptual Disturbances: Derealization and Hallucinations Thought Process: Distracted, Rumination and Confusion Thought Content: positive for [place], positive for Perseveration, positive for Poverty of Content, positive for Preoccupation, positive for Thought Blocking and positive for Disorganized Abnormal Motor Activity Signs and Symptoms: Restlessness Judgement: Poor Judgement and Insight: Impair Diagnostics Vital Signs (24Hr): Vital Signs - 24 hr 12/15/24 09:20 12/15/24 11:00 12/15/24 11:10 Temperature 98.2 F 98 F 98 F Pulse Rate 105 H 105 H 105 H Respiratory Rate 18 18 Blood Pressure 127/75 133/81 133/81 Pulse Oximetry 98 Oxygen Delivery Method Room Air 12/15/24 20:00 12/15/24 21:03 12/16/24 08:27 Temperature 98 F 98.4 F Pulse Rate 102 H 112 H Respiratory Rate 16 16 Blood Pressure 134/82 128/61 137/87 Pulse Oximetry 98 100 Oxygen Delivery Method Room Air Room Air BMI result Body Mass Index 39.0 Labs 12/13/24 07:43 12/10/24 12:55 Medications Medications Current Medications Acetaminophen (Acetaminophen 325 Mg Tablet) 650 mg PO Q6H PRN PRN Reason: Headache/Pain, Scale 1-10 Al Hydroxide/Mg Hydroxide (Magnesium Hydrox/Alum Hydrox 30 Ml Oral.Susp) 30 ml PO Q6H PRN PRN Reason: Heartburn/Nausea Benztropine Mesylate (Benztropine Mesylate 1 Mg Tablet) 1 mg PO BID [facility] Last Admin: 12/15/24 08:00 Dose: 1 mg Clonidine HCl (Clonidine Hcl 0.1 Mg Tablet) 0.1 mg PO BID [facility]; Protocol Last Admin: 12/16/24 08:31 Dose: 0.1 mg Hydroxyzine HCl (Hydroxyzine Hcl 25 Mg Tablet) 25 mg PO Q6H PRN PRN Reason: mild anxiety Last Admin: 12/15/24 23:39 Dose: 25 mg Lorazepam (Lorazepam 0.5 Mg Tablet) 0.5 mg PO Q4H PRN PRN Reason: agitation Last Admin: 12/15/24 23:39 Dose: 0.5 mg Lorazepam (Lorazepam 1 Mg Tablet) 2 mg PO QID [facility] Last Admin: 12/16/24 08:30 Dose: 2 mg Magnesium Hydroxide (Milk Of Magnesia 30 Ml Oral.Susp) 30 ml PO DAILY PRN PRN Reason: Constipation Nicotine (Nicotine 21 Mg Patch.Td24) 21 mg TRANSDERMA DAILY PRN PRN Reason: smoking cessation Last Admin: 12/11/24 08:41 Dose: 21 mg Nicotine Polacrilex (Nicotine Polacrilex 2 Mg Gum) 4 mg BUCCAL Q2H PRN PRN Reason: Nicotine Cravings Polyethylene Glycol (Polyethylene Glycol 3350 17 Gm Powd.Pack) 17 gm PO DAILY [facility] Last Admin: 12/16/24 08:29 Dose: 17 gm Polyethylene Glycol (Polyethylene Glycol 3350 17 Gm Powd.Pack) 17 gm PO DAILY PRN PRN Reason: continued Constipation Thiamine HCl (Thiamine Hcl 100 Mg Tablet) 200 mg PO DAILY [facility] Last Admin: 12/16/24 08:30 Dose: 200 mg Trazodone HCl (Trazodone Hcl 50 Mg Tablet) 50 mg PO BEDTIME MRX1 PRN PRN Reason: Insomnia Last Admin: 12/15/24 21:03 Dose: 50 mg Allergies Allergies Allergy/AdvReac Type Severity Reaction Status Date / Time No Known Allergies Allergy Verified 12/09/24 12:43 Assessment & Plan Assessment & Plan (1) Catatonia: Status: Acute Code(s): F06.1 - Catatonic disorder due to known physiological condition (2) Schizoaffective disorder: Status: Acute Code(s): F25.9 - Schizoaffective disorder, unspecified (3) Cannabis use disorder: Status: Acute Code(s): F12.90 - Cannabis use, unspecified, uncomplicated Plan Admit, CV, One to One-SI, Disinhbition, Acute Psychosis Diagnostics as needed Collateral contact Milieu integration as tolerated Risperdal 2 mg bid Decrease Lorazepam to 0.5 mg q4h prn (pt is disinhibited, exposing himself) Depakote-continue Clonidine-continue Chlorpromazine prn (olanzapine has not been helpful by history) 12/12: DC Risperdal, Chlorpromazine Prolixin 5 bid and tid prn psychosis Increase Lorazapam to 1 mg tid Fe, CPK, CBCD, Myoglobin, EEG, B12,Folate, TSH, Valproate 12/14: KUB Continue current regime 12/15 remains with significant catatonic symptoms 1) Increased to Ativan 2mg QID. With increased dose, patient soon talked a little bit more (Ativan initially lowered out of concern that it was disinhibiting patient who was disrobing, however it seems more likely that this behavior is due to his psychotic disorganization than to effects of Ativan; currently. primary goal is to treat catatonia). 2)Discontinued Fluphenazine (for now) out of concern for antipsychotic being contributory to catatonia (also dc'd Depakote out of an abundance of caution) -Pt had told staff he has not had BM; KUB ordered but impression pending...Ordered Mirralx since no laxative ordered. Had nose bleed this morning which resolved on its own 12/16 still catatonic but a little more activity and talking a little more; though one word answers, pt responding appropriately to questions when asks. Says no voices, but later says AH remains. Patient educated on: diagnosis Informed Consent: understands, does not understand and further education needed Reason for continued inpatient stay Substantial Risk for: inability to function Time Spent With Patient Time: Total time managing care of this patient today ____ minutes.
[2024-12-16] MEDS: Acetaminophen 325 MG TABLET 650 MG PO (12:01)
[2024-12-16 21:31] VITALS: BP 138/86
[2024-12-16] MEDS: traZODone HCL 50 MG TABLET PO (21:31)
[2024-12-16 21:35] VITALS: BP 138/80; PULSE 89; TEMP 36.9
[2024-12-17 08:33] VITALS: BP 137/83; PULSE 107; RESP 16; TEMP 36.9; O2SAT 98
[2024-12-17] MEDS: Thiamine HCL 100 MG TABLET 200 MG PO (08:35)
[2024-12-17] MEDS: cloNIDine HCL 0.1 MG TABLET PO ×2 (08:35→21:04)
[2024-12-17] MEDS: LORazepam 1 MG TABLET 2 MG PO ×4 (08:36→21:04)
[2024-12-17] MEDS: polyethylene glycoL 3350 17 GM POWD.PACK PO (08:36)
--- NOTE | 2024-12-17 10:12 | P.PNPSI_ITS ---
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 Voices persist, saying, No, Dario . Reports sleep is intact, reports daily shower, some communication in Urdu, denies SI. Medication Compliance: Yes Side effects from medications: No Attending Groups: No Review of Systems Acute medical concerns: No Medical Review of Systems: unchanged Review of Systems Review of Systems Denies Mental Status Exam Mental Status Exam Patient Appearance: Fatigued Patient Orientation: Person and Place Level of Consciousness: Awake and Alert Patient Behavior: Cooperative, Anxious, Distractible and Good Eye Contact Mood Description: Withdrawn and Blunted Affect Description: Withdrawn and Blunted Patient Cognition Impaired: No Ability to Follow Directions: Good Speech Pattern: Impoverished, Spontaneous Speech and Soft-Spoken Memory Description: Remote Impaired Hallucinations: Auditory Delusions: Present Thought Process: Rumination Thought Content: positive for [place], positive for [place] and positive for Perseveration Depressive Symptoms: Difficulty Concentrating Judgement: Poor Diagnostics Vital Signs (24Hr): Vital Signs - 24 hr 12/16/24 21:31 12/16/24 21:35 12/17/24 08:33 Temperature 98.4 F 98.4 F Pulse Rate 89 107 H Respiratory Rate 16 Blood Pressure 138/86 138/80 137/83 Pulse Oximetry 98 Oxygen Delivery Method Room Air BMI result Body Mass Index 39.0 Labs 12/13/24 07:43 12/10/24 12:55 Imaging Radiology Impressions: ITS Impressions KUB X-Ray 12/14/24 16:10 IMPRESSION: No intestinal obstruction pattern. Electronically signed by: Wero Montanez MD 12/17/2024 08:14 AM EDT Medications Medications Current Medications Acetaminophen (Acetaminophen 325 Mg Tablet) 650 mg PO Q6H PRN PRN Reason: Headache/Pain, Scale 1-10 Last Admin: 12/16/24 12:01 Dose: 650 mg Al Hydroxide/Mg Hydroxide (Magnesium Hydrox/Alum Hydrox 30 Ml Oral.Susp) 30 ml PO Q6H PRN PRN Reason: Heartburn/Nausea Benztropine Mesylate (Benztropine Mesylate 1 Mg Tablet) 1 mg PO BID [facility] Last Admin: 12/15/24 08:00 Dose: 1 mg Clonidine HCl (Clonidine Hcl 0.1 Mg Tablet) 0.1 mg PO BID [facility]; Protocol Last Admin: 12/17/24 08:35 Dose: 0.1 mg Hydroxyzine HCl (Hydroxyzine Hcl 25 Mg Tablet) 25 mg PO Q6H PRN PRN Reason: mild anxiety Last Admin: 12/15/24 23:39 Dose: 25 mg Lorazepam (Lorazepam 0.5 Mg Tablet) 0.5 mg PO Q4H PRN PRN Reason: agitation Last Admin: 12/15/24 23:39 Dose: 0.5 mg Lorazepam (Lorazepam 1 Mg Tablet) 2 mg PO QID [facility] Last Admin: 12/17/24 08:36 Dose: 2 mg Magnesium Hydroxide (Milk Of Magnesia 30 Ml Oral.Susp) 30 ml PO DAILY PRN PRN Reason: Constipation Nicotine (Nicotine 21 Mg Patch.Td24) 21 mg TRANSDERMA DAILY PRN PRN Reason: smoking cessation Last Admin: 12/11/24 08:41 Dose: 21 mg Nicotine Polacrilex (Nicotine Polacrilex 2 Mg Gum) 4 mg BUCCAL Q2H PRN PRN Reason: Nicotine Cravings Polyethylene Glycol (Polyethylene Glycol 3350 17 Gm Powd.Pack) 17 gm PO DAILY [facility] Last Admin: 12/17/24 08:36 Dose: 17 gm Polyethylene Glycol (Polyethylene Glycol 3350 17 Gm Powd.Pack) 17 gm PO DAILY PRN PRN Reason: continued Constipation Thiamine HCl (Thiamine Hcl 100 Mg Tablet) 200 mg PO DAILY [facility] Last Admin: 12/17/24 08:35 Dose: 200 mg Trazodone HCl (Trazodone Hcl 50 Mg Tablet) 50 mg PO BEDTIME MRX1 PRN PRN Reason: Insomnia Last Admin: 12/16/24 21:31 Dose: 50 mg Allergies Allergies Allergy/AdvReac Type Severity Reaction Status Date / Time No Known Allergies Allergy Verified 12/09/24 12:43 Assessment & Plan Assessment & Plan (1) Catatonia: Status: Acute Code(s): F06.1 - Catatonic disorder due to known physiological condition (2) Schizoaffective disorder: Status: Acute Code(s): F25.9 - Schizoaffective disorder, unspecified (3) Cannabis use disorder: Status: Acute Code(s): F12.90 - Cannabis use, unspecified, uncomplicated Plan Admit, CV, One to One-SI, Disinhbition, Acute Psychosis Diagnostics as needed Collateral contact Milieu integration as tolerated Risperdal 2 mg bid Decrease Lorazepam to 0.5 mg q4h prn (pt is disinhibited, exposing himself) Depakote-continue Clonidine-continue Chlorpromazine prn (olanzapine has not been helpful by history) 12/12: DC Risperdal, Chlorpromazine Prolixin 5 bid and tid prn psychosis Increase Lorazapam to 1 mg tid Fe, CPK, CBCD, Myoglobin, EEG, B12,Folate, TSH, Valproate 12/14: KUB Continue current regime 12/15 remains with significant catatonic symptoms 1) Increased to Ativan 2mg QID. With increased dose, patient soon talked a little bit more (Ativan initially lowered out of concern that it was disinhibiting patient who was disrobing, however it seems more likely that this behavior is due to his psychotic disorganization than to effects of Ativan; currently. primary goal is to treat catatonia). 2)Discontinued Fluphenazine (for now) out of concern for antipsychotic being contributory to catatonia (also dc'd Depakote out of an abundance of caution) -Pt had told staff he has not had BM; KUB ordered but impression pending...Ordered Mirralx since no laxative ordered. Had nose bleed this morning which resolved on its own 12/16 still catatonic but a little more activity and talking a little more; though one word answers, pt responding appropriately to questions when asks. Says no voices, but later says AH remains. 12/17 plan exchange underwriting consultant the weekend-continue tx Reason for continued inpatient stay Substantial Risk for: rapid decompensation Time Spent With Patient Time: Total time managing care of this patient today ____ minutes.
[2024-12-17 20:00] VITALS: BP 141/78; PULSE 97; O2SAT 98
[2024-12-18 08:38] VITALS: BP 127/84; PULSE 87; TEMP 37.1; O2SAT 97
[2024-12-18] MEDS: polyethylene glycoL 3350 17 GM POWD.PACK PO (08:44)
[2024-12-18] MEDS: Thiamine HCL 100 MG TABLET 200 MG PO (08:44)
[2024-12-18] MEDS: LORazepam 1 MG TABLET 2 MG PO ×4 (08:45→20:52)
[2024-12-18] MEDS: cloNIDine HCL 0.1 MG TABLET PO ×2 (08:45→20:52)
--- NOTE | 2024-12-18 12:43 | HO.PSYCHPN ---
Subjective Subjective Date of Service: 12/18/24 Reason For Visit: Psychosis Subjective Notes: Conditional Voluntary Healthcare Proxy: No Guardianship: No Medical Problems Affecting Mental Status: No Interim History: Some improvement per team. Responding in Filipino at times, increased in attentiveness and clarity. Continues to report auditory perceptual alterations. Team reports [facility] is scheduled for his first appt in February. Medication Compliance: Yes Side effects from medications: No Attending Groups: Yes (attended an OT group per team today) Review of Systems Acute medical concerns: No Medical Review of Systems: unchanged Review of Systems Review of Systems Denies Mental Status Exam Mental Status Exam Patient Appearance: Appropriate Patient Orientation: Person and Place Level of Consciousness: Awake and Alert Patient Behavior: Cooperative, Distractible and Good Eye Contact Mood Description: Anxious and Blunted Affect Description: Anxious and Blunted Patient Cognition Impaired: No Ability to Follow Directions: Good Speech Pattern: Impoverished, Spontaneous Speech and Soft-Spoken Memory Description: Remote Impaired Hallucinations: Auditory Delusions: Present Thought Process: Distracted Thought Content: positive for [place], positive for Circumstantial and positive for Perseveration Depressive Symptoms: Increased Fatigue Judgement: Fair Diagnostics Vital Signs (24Hr): Vital Signs - 24 hr 12/17/24 20:00 12/18/24 08:38 Temperature 98.8 F Pulse Rate 97 87 Blood Pressure 141/78 H 127/84 Pulse Oximetry 98 97 Oxygen Delivery Method Room Air Room Air BMI result Body Mass Index 39.0 Labs 12/13/24 07:43 12/10/24 12:55 Imaging Radiology Impressions: ITS Impressions KUB X-Ray 12/14/24 16:10 IMPRESSION: No intestinal obstruction pattern. Electronically signed by: Wero Montanez MD 12/17/2024 08:14 AM EDT Medications Medications Current Medications Acetaminophen (Acetaminophen 325 Mg Tablet) 650 mg PO Q6H PRN PRN Reason: Headache/Pain, Scale 1-10 Last Admin: 12/16/24 12:01 Dose: 650 mg Al Hydroxide/Mg Hydroxide (Magnesium Hydrox/Alum Hydrox 30 Ml Oral.Susp) 30 ml PO Q6H PRN PRN Reason: Heartburn/Nausea Benztropine Mesylate (Benztropine Mesylate 1 Mg Tablet) 1 mg PO BID [facility] Last Admin: 12/15/24 08:00 Dose: 1 mg Clonidine HCl (Clonidine Hcl 0.1 Mg Tablet) 0.1 mg PO BID [facility]; Protocol Last Admin: 12/18/24 08:45 Dose: 0.1 mg Hydroxyzine HCl (Hydroxyzine Hcl 25 Mg Tablet) 25 mg PO Q6H PRN PRN Reason: mild anxiety Last Admin: 12/15/24 23:39 Dose: 25 mg Lorazepam (Lorazepam 0.5 Mg Tablet) 0.5 mg PO Q4H PRN PRN Reason: agitation Last Admin: 12/15/24 23:39 Dose: 0.5 mg Lorazepam (Lorazepam 1 Mg Tablet) 2 mg PO QID [facility] Last Admin: 12/18/24 08:45 Dose: 2 mg Magnesium Hydroxide (Milk Of Magnesia 30 Ml Oral.Susp) 30 ml PO DAILY PRN PRN Reason: Constipation Nicotine (Nicotine 21 Mg Patch.Td24) 21 mg TRANSDERMA DAILY PRN PRN Reason: smoking cessation Last Admin: 12/11/24 08:41 Dose: 21 mg Nicotine Polacrilex (Nicotine Polacrilex 2 Mg Gum) 4 mg BUCCAL Q2H PRN PRN Reason: Nicotine Cravings Polyethylene Glycol (Polyethylene Glycol 3350 17 Gm Powd.Pack) 17 gm PO DAILY [facility] Last Admin: 12/18/24 08:44 Dose: 17 gm Polyethylene Glycol (Polyethylene Glycol 3350 17 Gm Powd.Pack) 17 gm PO DAILY PRN PRN Reason: continued Constipation Thiamine HCl (Thiamine Hcl 100 Mg Tablet) 200 mg PO DAILY [facility] Last Admin: 12/18/24 08:44 Dose: 200 mg Trazodone HCl (Trazodone Hcl 50 Mg Tablet) 50 mg PO BEDTIME MRX1 PRN PRN Reason: Insomnia Last Admin: 12/16/24 21:31 Dose: 50 mg Allergies Allergies Allergy/AdvReac Type Severity Reaction Status Date / Time No Known Allergies Allergy Verified 12/09/24 12:43 Assessment & Plan Assessment & Plan (1) Catatonia: Status: Acute Code(s): F06.1 - Catatonic disorder due to known physiological condition (2) Schizoaffective disorder: Status: Acute Code(s): F25.9 - Schizoaffective disorder, unspecified (3) Cannabis use disorder: Status: Acute Code(s): F12.90 - Cannabis use, unspecified, uncomplicated Plan Admit, CV, One to One-SI, Disinhbition, Acute Psychosis Diagnostics as needed Collateral contact Milieu integration as tolerated Risperdal 2 mg bid Decrease Lorazepam to 0.5 mg q4h prn (pt is disinhibited, exposing himself) Depakote-continue Clonidine-continue Chlorpromazine prn (olanzapine has not been helpful by history) 12/12: DC Risperdal, Chlorpromazine Prolixin 5 bid and tid prn psychosis Increase Lorazapam to 1 mg tid Fe, CPK, CBCD, Myoglobin, EEG, B12,Folate, TSH, Valproate 12/14: KUB Continue current regime 12/15 remains with significant catatonic symptoms 1) Increased to Ativan 2mg QID. With increased dose, patient soon talked a little bit more (Ativan initially lowered out of concern that it was disinhibiting patient who was disrobing, however it seems more likely that this behavior is due to his psychotic disorganization than to effects of Ativan; currently. primary goal is to treat catatonia). 2)Discontinued Fluphenazine (for now) out of concern for antipsychotic being contributory to catatonia (also dc'd Depakote out of an abundance of caution) -Pt had told staff he has not had BM; KUB ordered but impression pending...Ordered Mirralx since no laxative ordered. Had nose bleed this morning which resolved on its own 12/16 still catatonic but a little more activity and talking a little more; though one word answers, pt responding appropriately to questions when asks. Says no voices, but later says AH remains. 12/18 continue current plan Reason for continued inpatient stay Substantial Risk for: rapid decompensation Time Spent With Patient Time: Total time managing care of this patient today ____ minutes.
[2024-12-18 20:00] VITALS: BP 138/88; PULSE 113; RESP 16; TEMP 36.8; O2SAT 98
[2024-12-19 01:17] LABS: Myoglobin, Quant. Random Urine <1 mg/L (0-1)
[2024-12-19 07:30] VITALS: BP 172/79; PULSE 104; TEMP 36.6; O2SAT 99
[2024-12-19 07:56] VITALS: BP 152/78; PULSE 94
[2024-12-19] MEDS: polyethylene glycoL 3350 17 GM POWD.PACK PO (08:30)
[2024-12-19] MEDS: LORazepam 1 MG TABLET 2 MG PO ×4 (08:30→21:01)
[2024-12-19] MEDS: Thiamine HCL 100 MG TABLET 200 MG PO (08:30)
[2024-12-19] MEDS: cloNIDine HCL 0.1 MG TABLET PO ×2 (08:31→21:01)
--- NOTE | 2024-12-19 10:45 | HO.PSYCHPN ---
Subjective Subjective Date of Service: 12/19/24 Reason For Visit: Psychosis Subjective Notes: Conditional Voluntary Healthcare Proxy: No Guardianship: No Medical Problems Affecting Mental Status: No Interim History: Continues to improve. Seen with [facility] Distribution Clerk. Voices still present. Reports feeling improved. Denies medical or medication SE. Trial dose of 5 mg olanzapine today with effect-pt reports a decrease in voices. Will continue trial. Medication Compliance: Yes Side effects from medications: No Attending Groups: Intermittent Review of Systems Acute medical concerns: No Review of Systems Review of Systems Denies Mental Status Exam Mental Status Exam Patient Appearance: Appropriate Patient Orientation: Person and Place Level of Consciousness: Awake and Alert Patient Behavior: Cooperative, Distractible and Good Eye Contact Mood Description: Anxious and Blunted Affect Description: Anxious and Blunted Patient Cognition Impaired: No Ability to Follow Directions: Good Speech Pattern: Impoverished, Spontaneous Speech and Soft-Spoken Memory Description: Remote Impaired Hallucinations: Auditory Delusions: Present Thought Process: Distracted Thought Content: positive for [place], positive for Circumstantial and positive for Perseveration Depressive Symptoms: Increased Fatigue Judgement: Fair Diagnostics Vital Signs (24Hr): Vital Signs - 24 hr 12/18/24 20:00 12/19/24 07:30 12/19/24 07:56 Temperature 98.2 F 97.8 F Pulse Rate 113 H 104 H 94 Respiratory Rate 16 Blood Pressure 138/88 172/79 H 152/78 H Pulse Oximetry 98 99 Oxygen Delivery Method Room Air Room Air BMI result Body Mass Index 39.0 Labs 12/13/24 07:43 12/10/24 12:55 Labs: Laboratory Results - last 48 hr 12/12/24 23:55 Ur Myoglobin, Quant <1 Imaging Radiology Impressions: ITS Impressions KUB X-Ray 12/14/24 16:10 IMPRESSION: No intestinal obstruction pattern. Electronically signed by: Wero Montanez MD 12/17/2024 08:14 AM EDT Medications Medications Current Medications Acetaminophen (Acetaminophen 325 Mg Tablet) 650 mg PO Q6H PRN PRN Reason: Headache/Pain, Scale 1-10 Last Admin: 12/16/24 12:01 Dose: 650 mg Al Hydroxide/Mg Hydroxide (Magnesium Hydrox/Alum Hydrox 30 Ml Oral.Susp) 30 ml PO Q6H PRN PRN Reason: Heartburn/Nausea Benztropine Mesylate (Benztropine Mesylate 1 Mg Tablet) 1 mg PO BID [facility] Last Admin: 12/15/24 08:00 Dose: 1 mg Clonidine HCl (Clonidine Hcl 0.1 Mg Tablet) 0.1 mg PO BID [facility]; Protocol Last Admin: 12/19/24 08:31 Dose: 0.1 mg Hydroxyzine HCl (Hydroxyzine Hcl 25 Mg Tablet) 25 mg PO Q6H PRN PRN Reason: mild anxiety Last Admin: 12/15/24 23:39 Dose: 25 mg Lorazepam (Lorazepam 0.5 Mg Tablet) 0.5 mg PO Q4H PRN PRN Reason: agitation Last Admin: 12/15/24 23:39 Dose: 0.5 mg Lorazepam (Lorazepam 1 Mg Tablet) 2 mg PO QID [facility] Last Admin: 12/19/24 08:30 Dose: 2 mg Magnesium Hydroxide (Milk Of Magnesia 30 Ml Oral.Susp) 30 ml PO DAILY PRN PRN Reason: Constipation Nicotine (Nicotine 21 Mg Patch.Td24) 21 mg TRANSDERMA DAILY PRN PRN Reason: smoking cessation Last Admin: 12/11/24 08:41 Dose: 21 mg Nicotine Polacrilex (Nicotine Polacrilex 2 Mg Gum) 4 mg BUCCAL Q2H PRN PRN Reason: Nicotine Cravings Olanzapine (Olanzapine 5 Mg Tablet) 5 mg PO BID [facility] Polyethylene Glycol (Polyethylene Glycol 3350 17 Gm Powd.Pack) 17 gm PO DAILY [facility] Last Admin: 12/19/24 08:30 Dose: 17 gm Polyethylene Glycol (Polyethylene Glycol 3350 17 Gm Powd.Pack) 17 gm PO DAILY PRN PRN Reason: continued Constipation Thiamine HCl (Thiamine Hcl 100 Mg Tablet) 200 mg PO DAILY [facility] Last Admin: 12/19/24 08:30 Dose: 200 mg Trazodone HCl (Trazodone Hcl 50 Mg Tablet) 50 mg PO BEDTIME MRX1 PRN PRN Reason: Insomnia Last Admin: 12/16/24 21:31 Dose: 50 mg Allergies Allergies Allergy/AdvReac Type Severity Reaction Status Date / Time No Known Allergies Allergy Verified 12/09/24 12:43 Assessment & Plan Assessment & Plan (1) Catatonia: Status: Acute Code(s): F06.1 - Catatonic disorder due to known physiological condition (2) Schizoaffective disorder: Status: Acute Code(s): F25.9 - Schizoaffective disorder, unspecified (3) Cannabis use disorder: Status: Acute Code(s): F12.90 - Cannabis use, unspecified, uncomplicated Plan Admit, CV, One to One-SI, Disinhbition, Acute Psychosis Diagnostics as needed Collateral contact Milieu integration as tolerated Risperdal 2 mg bid Decrease Lorazepam to 0.5 mg q4h prn (pt is disinhibited, exposing himself) Depakote-continue Clonidine-continue Chlorpromazine prn (olanzapine has not been helpful by history) 12/12: DC Risperdal, Chlorpromazine Prolixin 5 bid and tid prn psychosis Increase Lorazapam to 1 mg tid Fe, CPK, CBCD, Myoglobin, EEG, B12,Folate, TSH, Valproate 12/14: KUB Continue current regime 12/15 remains with significant catatonic symptoms 1) Increased to Ativan 2mg QID. With increased dose, patient soon talked a little bit more (Ativan initially lowered out of concern that it was disinhibiting patient who was disrobing, however it seems more likely that this behavior is due to his psychotic disorganization than to effects of Ativan; currently. primary goal is to treat catatonia). 2)Discontinued Fluphenazine (for now) out of concern for antipsychotic being contributory to catatonia (also dc'd Depakote out of an abundance of caution) -Pt had told staff he has not had BM; KUB ordered but impression pending...Ordered Mirralx since no laxative ordered. Had nose bleed this morning which resolved on its own 12/16 still catatonic but a little more activity and talking a little more; though one word answers, pt responding appropriately to questions when asks. Says no voices, but later says AH remains. 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 Continue olanzapine 5 mg daily. Reason for continued inpatient stay Substantial Risk for: rapid decompensation Time Spent With Patient Time: Total time managing care of this patient today ____ minutes.
[2024-12-19] MEDS: OLANZapine 5 MG TABLET PO (11:29)
[2024-12-19] MEDS: Benztropine Mesylate 1 MG TABLET PO ×2 (11:29→21:01)
[2024-12-19 19:56] VITALS: BP 137/74; PULSE 118; RESP 16; TEMP 37.1; O2SAT 97
[2024-12-19] MEDS: traZODone HCL 50 MG TABLET PO (21:01)
[2024-12-20 07:00] VITALS: BMI 39.9
[2024-12-20 08:00] VITALS: PULSE 112; RESP 18; TEMP 37.7; O2SAT 96
[2024-12-20] MEDS: polyethylene glycoL 3350 17 GM POWD.PACK PO (08:33)
[2024-12-20] MEDS: Thiamine HCL 100 MG TABLET 200 MG PO (08:36)
[2024-12-20] MEDS: OLANZapine 5 MG TABLET PO (08:36)
[2024-12-20] MEDS: Benztropine Mesylate 1 MG TABLET PO ×2 (08:36→21:33)
[2024-12-20 08:37] VITALS: BP 134/63
[2024-12-20] MEDS: cloNIDine HCL 0.1 MG TABLET PO ×2 (08:37→21:31)
[2024-12-20] MEDS: LORazepam 1 MG TABLET 2 MG PO ×4 (08:37→21:31)
[2024-12-20 12:00] VITALS: TEMP 37.3
[2024-12-20 20:00] VITALS: BP 149/82; PULSE 113; RESP 18; TEMP 37.4; O2SAT 96
--- NOTE | 2024-12-20 20:00 | HO.PSYCHPN ---
Subjective Subjective Date of Service: 12/20/24 Reason For Visit: Psychosis Subjective Notes: Conditional Voluntary Healthcare Proxy: No Guardianship: No Medical Problems Affecting Mental Status: No Interim History: Some improvement. Reports sadness, anxiety, increase in voices and feeling tired. Reports he is able to sleep but is still not feeling like himself. Believes Olanzapine was helpful with voices. Will increase dosing to 7.5 mg Medication Compliance: Yes Side effects from medications: No Attending Groups: No Review of Systems Acute medical concerns: No Medical Review of Systems: unchanged Review of Systems Review of Systems Denies Feeling tired Mental Status Exam Mental Status Exam Patient Appearance: Appropriate Patient Orientation: Person and Place Level of Consciousness: Awake and Alert Patient Behavior: Cooperative, Distractible and Good Eye Contact Mood Description: Anxious and Blunted Affect Description: Anxious and Blunted Patient Cognition Impaired: No Ability to Follow Directions: Good Speech Pattern: Impoverished, Spontaneous Speech and Soft-Spoken Memory Description: Remote Impaired Hallucinations: Auditory Delusions: Present Thought Process: Distracted Thought Content: positive for [place], positive for Circumstantial and positive for Perseveration Depressive Symptoms: Increased Fatigue Judgement: Fair Diagnostics Vital Signs (24Hr): Vital Signs - 24 hr 12/20/24 08:00 12/20/24 08:37 12/20/24 12:00 Temperature 99.8 F 99.1 F Pulse Rate 112 H Respiratory Rate 18 Blood Pressure 134/63 Pulse Oximetry 96 Oxygen Delivery Method Room Air BMI result Body Mass Index 39.9 Labs 12/13/24 07:43 12/10/24 12:55 Labs: Laboratory Results - last 48 hr 12/12/24 23:55 Ur Myoglobin, Quant <1 Imaging Radiology Impressions: ITS Impressions KUB X-Ray 12/14/24 16:10 IMPRESSION: No intestinal obstruction pattern. Electronically signed by: Wero Montanez MD 12/17/2024 08:14 AM EDT Medications Medications Current Medications Acetaminophen (Acetaminophen 325 Mg Tablet) 650 mg PO Q6H PRN PRN Reason: Headache/Pain, Scale 1-10 Last Admin: 12/16/24 12:01 Dose: 650 mg Al Hydroxide/Mg Hydroxide (Magnesium Hydrox/Alum Hydrox 30 Ml Oral.Susp) 30 ml PO Q6H PRN PRN Reason: Heartburn/Nausea Benztropine Mesylate (Benztropine Mesylate 1 Mg Tablet) 1 mg PO BID [facility] Last Admin: 12/20/24 08:36 Dose: 1 mg Clonidine HCl (Clonidine Hcl 0.1 Mg Tablet) 0.1 mg PO BID [facility]; Protocol Last Admin: 12/20/24 08:37 Dose: 0.1 mg Hydroxyzine HCl (Hydroxyzine Hcl 25 Mg Tablet) 25 mg PO Q6H PRN PRN Reason: mild anxiety Last Admin: 12/15/24 23:39 Dose: 25 mg Lorazepam (Lorazepam 0.5 Mg Tablet) 0.5 mg PO Q4H PRN PRN Reason: agitation Last Admin: 12/15/24 23:39 Dose: 0.5 mg Lorazepam (Lorazepam 1 Mg Tablet) 2 mg PO QID [facility] Last Admin: 12/20/24 16:38 Dose: 2 mg Magnesium Hydroxide (Milk Of Magnesia 30 Ml Oral.Susp) 30 ml PO DAILY PRN PRN Reason: Constipation Nicotine (Nicotine 21 Mg Patch.Td24) 21 mg TRANSDERMA DAILY PRN PRN Reason: smoking cessation Last Admin: 12/11/24 08:41 Dose: 21 mg Nicotine Polacrilex (Nicotine Polacrilex 2 Mg Gum) 4 mg BUCCAL Q2H PRN PRN Reason: Nicotine Cravings Olanzapine (Olanzapine 7.5 Mg Tablet) 7.5 mg PO DAILY [facility] Polyethylene Glycol (Polyethylene Glycol 3350 17 Gm Powd.Pack) 17 gm PO DAILY [facility] Last Admin: 12/20/24 08:33 Dose: 17 gm Polyethylene Glycol (Polyethylene Glycol 3350 17 Gm Powd.Pack) 17 gm PO DAILY PRN PRN Reason: continued Constipation Thiamine HCl (Thiamine Hcl 100 Mg Tablet) 200 mg PO DAILY [facility] Last Admin: 12/20/24 08:36 Dose: 200 mg Trazodone HCl (Trazodone Hcl 50 Mg Tablet) 50 mg PO BEDTIME MRX1 PRN PRN Reason: Insomnia Last Admin: 12/19/24 21:01 Dose: 50 mg Allergies Allergies Allergy/AdvReac Type Severity Reaction Status Date / Time No Known Allergies Allergy Verified 12/09/24 12:43 Assessment & Plan Assessment & Plan (1) Catatonia: Status: Acute Code(s): F06.1 - Catatonic disorder due to known physiological condition (2) Schizoaffective disorder: Status: Acute Code(s): F25.9 - Schizoaffective disorder, unspecified (3) Cannabis use disorder: Status: Acute Code(s): F12.90 - Cannabis use, unspecified, uncomplicated Plan Admit, CV, One to One-SI, Disinhbition, Acute Psychosis Diagnostics as needed Collateral contact Milieu integration as tolerated Risperdal 2 mg bid Decrease Lorazepam to 0.5 mg q4h prn (pt is disinhibited, exposing himself) Depakote-continue Clonidine-continue Chlorpromazine prn (olanzapine has not been helpful by history) 12/12: DC Risperdal, Chlorpromazine Prolixin 5 bid and tid prn psychosis Increase Lorazapam to 1 mg tid Fe, CPK, CBCD, Myoglobin, EEG, B12,Folate, TSH, Valproate 12/14: KUB Continue current regime 12/15 remains with significant catatonic symptoms 1) Increased to Ativan 2mg QID. With increased dose, patient soon talked a little bit more (Ativan initially lowered out of concern that it was disinhibiting patient who was disrobing, however it seems more likely that this behavior is due to his psychotic disorganization than to effects of Ativan; currently. primary goal is to treat catatonia). 2)Discontinued Fluphenazine (for now) out of concern for antipsychotic being contributory to catatonia (also dc'd Depakote out of an abundance of caution) -Pt had told staff he has not had BM; KUB ordered but impression pending...Ordered Mirralx since no laxative ordered. Had nose bleed this morning which resolved on its own 12/16 still catatonic but a little more activity and talking a little more; though one word answers, pt responding appropriately to questions when asks. Says no voices, but later says AH remains. 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 Continue olanzapine 5 mg daily. 12/20 increase olanzapine to 7.5 mg daily Reason for continued inpatient stay Substantial Risk for: rapid decompensation Time Spent With Patient Time: Total time managing care of this patient today ____ minutes.
[2024-12-20 21:31] VITALS: BP 148/82
[2024-12-20] MEDS: traZODone HCL 50 MG TABLET PO (21:31)
[2024-12-21 07:52] VITALS: BP 145/60; PULSE 90; TEMP 36.8; O2SAT 95
[2024-12-21] MEDS: OLANZapine 7.5 MG TABLET PO (08:57)
[2024-12-21] MEDS: LORazepam 1 MG TABLET 2 MG PO ×4 (08:57→20:54)
[2024-12-21] MEDS: polyethylene glycoL 3350 17 GM POWD.PACK PO (08:57)
[2024-12-21] MEDS: Benztropine Mesylate 1 MG TABLET PO ×2 (08:57→20:54)
[2024-12-21] MEDS: cloNIDine HCL 0.1 MG TABLET PO ×2 (08:57→20:54)
[2024-12-21] MEDS: Thiamine HCL 100 MG TABLET 200 MG PO (08:57)
--- NOTE | 2024-12-21 10:17 | HO.PSYCHPN ---
Subjective Subjective Date of Service: 12/21/24 Reason For Visit: Psychosis Subjective Notes: Conditional Voluntary Healthcare Proxy: No Guardianship: No Medical Problems Affecting Mental Status: No Interim History: Visable in milieu. Responses today are in Portuguese, immigration manager not needed. Reports a decrease in voices, reports feeling stronger, clearer today as well. Attending groups. Medication Compliance: Yes Side effects from medications: No Attending Groups: Yes Review of Systems Acute medical concerns: No Review of Systems Review of Systems Denies today Mental Status Exam Mental Status Exam Patient Appearance: Appropriate Patient Orientation: Person and Place Level of Consciousness: Awake and Alert Patient Behavior: Cooperative, Distractible and Good Eye Contact Mood Description: Anxious and Blunted Affect Description: Anxious and Blunted Patient Cognition Impaired: No Ability to Follow Directions: Good Speech Pattern: Impoverished, Spontaneous Speech and Soft-Spoken Memory Description: Remote Impaired Hallucinations: Auditory Delusions: Present Thought Process: Distracted Thought Content: positive for [place], positive for Circumstantial and positive for Perseveration Judgement: Fair Diagnostics Vital Signs (24Hr): Vital Signs - 24 hr 12/20/24 12:00 12/20/24 20:00 12/20/24 21:31 Temperature 99.1 F 99.3 F Pulse Rate 113 H Respiratory Rate 18 Blood Pressure 149/82 H 148/82 H Pulse Oximetry 96 Oxygen Delivery Method Room Air 12/21/24 07:52 Temperature 98.3 F Pulse Rate 90 Respiratory Rate Blood Pressure 145/60 H Pulse Oximetry 95 Oxygen Delivery Method Room Air BMI result Body Mass Index 39.9 Labs 12/13/24 07:43 12/10/24 12:55 Imaging Radiology Impressions: ITS Impressions KUB X-Ray 12/14/24 16:10 IMPRESSION: No intestinal obstruction pattern. Electronically signed by: Wero Montanez MD 12/17/2024 08:14 AM EDT Medications Medications Current Medications Acetaminophen (Acetaminophen 325 Mg Tablet) 650 mg PO Q6H PRN PRN Reason: Headache/Pain, Scale 1-10 Last Admin: 12/16/24 12:01 Dose: 650 mg Al Hydroxide/Mg Hydroxide (Magnesium Hydrox/Alum Hydrox 30 Ml Oral.Susp) 30 ml PO Q6H PRN PRN Reason: Heartburn/Nausea Benztropine Mesylate (Benztropine Mesylate 1 Mg Tablet) 1 mg PO BID UZMA Last Admin: 12/21/24 08:57 Dose: 1 mg Clonidine HCl (Clonidine Hcl 0.1 Mg Tablet) 0.1 mg PO BID [facility]; Protocol Last Admin: 12/21/24 08:57 Dose: 0.1 mg Hydroxyzine HCl (Hydroxyzine Hcl 25 Mg Tablet) 25 mg PO Q6H PRN PRN Reason: mild anxiety Last Admin: 12/15/24 23:39 Dose: 25 mg Lorazepam (Lorazepam 0.5 Mg Tablet) 0.5 mg PO Q4H PRN PRN Reason: agitation Last Admin: 12/15/24 23:39 Dose: 0.5 mg Lorazepam (Lorazepam 1 Mg Tablet) 2 mg PO QID [facility] Last Admin: 12/21/24 08:57 Dose: 2 mg Magnesium Hydroxide (Milk Of Magnesia 30 Ml Oral.Susp) 30 ml PO DAILY PRN PRN Reason: Constipation Nicotine (Nicotine 21 Mg Patch.Td24) 21 mg TRANSDERMA DAILY PRN PRN Reason: smoking cessation Last Admin: 12/11/24 08:41 Dose: 21 mg Nicotine Polacrilex (Nicotine Polacrilex 2 Mg Gum) 4 mg BUCCAL Q2H PRN PRN Reason: Nicotine Cravings Olanzapine (Olanzapine 7.5 Mg Tablet) 7.5 mg PO DAILY [facility] Last Admin: 12/21/24 08:57 Dose: 7.5 mg Polyethylene Glycol (Polyethylene Glycol 3350 17 Gm Powd.Pack) 17 gm PO DAILY [facility] Last Admin: 12/21/24 08:57 Dose: 17 gm Polyethylene Glycol (Polyethylene Glycol 3350 17 Gm Powd.Pack) 17 gm PO DAILY PRN PRN Reason: continued Constipation Thiamine HCl (Thiamine Hcl 100 Mg Tablet) 200 mg PO DAILY [facility] Last Admin: 12/21/24 08:57 Dose: 200 mg Trazodone HCl (Trazodone Hcl 50 Mg Tablet) 50 mg PO BEDTIME MRX1 PRN PRN Reason: Insomnia Last Admin: 12/20/24 21:31 Dose: 50 mg Allergies Allergies Allergy/AdvReac Type Severity Reaction Status Date / Time No Known Allergies Allergy Verified 12/09/24 12:43 Assessment & Plan Assessment & Plan (1) Catatonia: Status: Acute Code(s): F06.1 - Catatonic disorder due to known physiological condition (2) Schizoaffective disorder: Status: Acute Code(s): F25.9 - Schizoaffective disorder, unspecified (3) Cannabis use disorder: Status: Acute Code(s): F12.90 - Cannabis use, unspecified, uncomplicated Plan Admit, CV, One to One-SI, Disinhbition, Acute Psychosis Diagnostics as needed Collateral contact Milieu integration as tolerated Risperdal 2 mg bid Decrease Lorazepam to 0.5 mg q4h prn (pt is disinhibited, exposing himself) Depakote-continue Clonidine-continue Chlorpromazine prn (olanzapine has not been helpful by history) 12/12: DC Risperdal, Chlorpromazine Prolixin 5 bid and tid prn psychosis Increase Lorazapam to 1 mg tid Fe, CPK, CBCD, Myoglobin, EEG, B12,Folate, TSH, Valproate 12/14: KUB Continue current regime 12/15 remains with significant catatonic symptoms 1) Increased to Ativan 2mg QID. With increased dose, patient soon talked a little bit more (Ativan initially lowered out of concern that it was disinhibiting patient who was disrobing, however it seems more likely that this behavior is due to his psychotic disorganization than to effects of Ativan; currently. primary goal is to treat catatonia). 2)Discontinued Fluphenazine (for now) out of concern for antipsychotic being contributory to catatonia (also dc'd Depakote out of an abundance of caution) -Pt had told staff he has not had BM; KUB ordered but impression pending...Ordered Mirralx since no laxative ordered. Had nose bleed this morning which resolved on its own 12/16 still catatonic but a little more activity and talking a little more; though one word answers, pt responding appropriately to questions when asks. Says no voices, but later says AH remains. 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 Continue olanzapine 5 mg daily. 12/20 increase olanzapine to 7.5 mg daily 12/21 continue tx Reason for continued inpatient stay Substantial Risk for: rapid decompensation Time Spent With Patient Time: Total time managing care of this patient today ____ minutes.
[2024-12-21 20:00] VITALS: BP 124/78; PULSE 118; RESP 15; TEMP 36.8; O2SAT 96
[2024-12-21] MEDS: traZODone HCL 50 MG TABLET PO (20:54)
[2024-12-22 08:00] VITALS: BP 126/80; PULSE 100; RESP 16; TEMP 36.6; O2SAT 97
--- NOTE | 2024-12-22 08:09 | P.PNPSI_ITS ---
Subjective Subjective Date of Service: 12/22/24 Reason For Visit: Psychosis Subjective Notes: Conditional Voluntary Healthcare Proxy: No Guardianship: No Medical Problems Affecting Mental Status: No Interim History: 24 yo with intense eye contact, sitting in kitchen, leg trembling right while sitting- some mumbling of words but responds Nursing reports better on olanzapine then was on thorazine Medication Compliance: Yes Side effects from medications: Yes (?slurring /mumbling of words or if that is part of catatonia) Attending Groups: Intermittent Review of Systems Acute medical concerns: No Medical Review of Systems: unchanged Review of Systems: eps of right leg/? Mental Status Exam Mental Status Exam Patient Appearance: Disheveled and Unkempt Patient Orientation: Person, Place and Situation Level of Consciousness: Awake Patient Behavior: Dependent and Passive Behavior Comments: poor hygiene Mood Description: Flat Affect Description: Blunted Patient Cognition Impaired: Yes Ability to Follow Directions: Fair Speech Pattern: Mumbled and Poor Articulation Hallucinations: Auditory (can't tell me what they say ) Thought Process: Illogical (?) Thought Content: positive for [place] and positive for Poverty of Content Depressive Symptoms: Muscle Tension Abnormal Motor Activity Signs and Symptoms: Tremors Judgement: Poor Diagnostics Vital Signs (24Hr): Vital Signs - 24 hr 12/21/24 20:00 Temperature 98.3 F Pulse Rate 118 H Respiratory Rate 15 Blood Pressure 124/78 Pulse Oximetry 96 BMI result Body Mass Index 39.9 Labs 12/13/24 07:43 12/10/24 12:55 Imaging Radiology Impressions: ITS Impressions KUB X-Ray 12/14/24 16:10 IMPRESSION: No intestinal obstruction pattern. Electronically signed by: Wero Montanez MD 12/17/2024 08:14 AM EDT Medications Medications Current Medications Acetaminophen (Acetaminophen 325 Mg Tablet) 650 mg PO Q6H PRN PRN Reason: Headache/Pain, Scale 1-10 Last Admin: 12/16/24 12:01 Dose: 650 mg Al Hydroxide/Mg Hydroxide (Magnesium Hydrox/Alum Hydrox 30 Ml Oral.Susp) 30 ml PO Q6H PRN PRN Reason: Heartburn/Nausea Benztropine Mesylate (Benztropine Mesylate 1 Mg Tablet) 1 mg PO BID UZMA Last Admin: 12/21/24 20:54 Dose: 1 mg Clonidine HCl (Clonidine Hcl 0.1 Mg Tablet) 0.1 mg PO BID [facility]; Protocol Last Admin: 12/21/24 20:54 Dose: 0.1 mg Hydroxyzine HCl (Hydroxyzine Hcl 25 Mg Tablet) 25 mg PO Q6H PRN PRN Reason: mild anxiety Last Admin: 12/15/24 23:39 Dose: 25 mg Lorazepam (Lorazepam 0.5 Mg Tablet) 0.5 mg PO Q4H PRN PRN Reason: agitation Last Admin: 12/15/24 23:39 Dose: 0.5 mg Lorazepam (Lorazepam 1 Mg Tablet) 2 mg PO QID [facility] Last Admin: 12/21/24 20:54 Dose: 2 mg Magnesium Hydroxide (Milk Of Magnesia 30 Ml Oral.Susp) 30 ml PO DAILY PRN PRN Reason: Constipation Nicotine (Nicotine 21 Mg Patch.Td24) 21 mg TRANSDERMA DAILY PRN PRN Reason: smoking cessation Last Admin: 12/11/24 08:41 Dose: 21 mg Nicotine Polacrilex (Nicotine Polacrilex 2 Mg Gum) 4 mg BUCCAL Q2H PRN PRN Reason: Nicotine Cravings Olanzapine (Olanzapine 7.5 Mg Tablet) 7.5 mg PO DAILY [facility] Last Admin: 12/21/24 08:57 Dose: 7.5 mg Polyethylene Glycol (Polyethylene Glycol 3350 17 Gm Powd.Pack) 17 gm PO DAILY [facility] Last Admin: 12/21/24 08:57 Dose: 17 gm Polyethylene Glycol (Polyethylene Glycol 3350 17 Gm Powd.Pack) 17 gm PO DAILY PRN PRN Reason: continued Constipation Thiamine HCl (Thiamine Hcl 100 Mg Tablet) 200 mg PO DAILY [facility] Last Admin: 12/21/24 08:57 Dose: 200 mg Trazodone HCl (Trazodone Hcl 50 Mg Tablet) 50 mg PO BEDTIME MRX1 PRN PRN Reason: Insomnia Last Admin: 12/21/24 20:54 Dose: 50 mg Allergies Allergies Allergy/AdvReac Type Severity Reaction Status Date / Time No Known Allergies Allergy Verified 12/09/24 12:43 Assessment & Plan Assessment & Plan (1) Catatonia: Status: Acute Code(s): F06.1 - Catatonic disorder due to known physiological condition (2) Schizoaffective disorder: Status: Acute Code(s): F25.9 - Schizoaffective disorder, unspecified (3) Cannabis use disorder: Status: Acute Code(s): F12.90 - Cannabis use, unspecified, uncomplicated Plan Admit, CV, One to One-SI, Disinhbition, Acute Psychosis Diagnostics as needed Collateral contact Milieu integration as tolerated Risperdal 2 mg bid Decrease Lorazepam to 0.5 mg q4h prn (pt is disinhibited, exposing himself) Depakote-continue Clonidine-continue Chlorpromazine prn (olanzapine has not been helpful by history) 12/12: DC Risperdal, Chlorpromazine Prolixin 5 bid and tid prn psychosis Increase Lorazapam to 1 mg tid Fe, CPK, CBCD, Myoglobin, EEG, B12,Folate, TSH, Valproate 12/14: KUB Continue current regime 12/15 remains with significant catatonic symptoms 1) Increased to Ativan 2mg QID. With increased dose, patient soon talked a little bit more (Ativan initially lowered out of concern that it was disinhibiting patient who was disrobing, however it seems more likely that this behavior is due to his psychotic disorganization than to effects of Ativan; currently. primary goal is to treat catatonia). 2)Discontinued Fluphenazine (for now) out of concern for antipsychotic being contributory to catatonia (also dc'd Depakote out of an abundance of caution) -Pt had told staff he has not had BM; KUB ordered but impression pending...Ordered Mirralx since no laxative ordered. Had nose bleed this morning which resolved on its own 12/16 still catatonic but a little more activity and talking a little more; though one word answers, pt responding appropriately to questions when asks. Says no voices, but later says AH remains. 12/17 plan stain remover the weekend-continue tx 12/19 trial of olanzapine 5 mg with a decrease in auditory perceptual alterations. Continue olanzapine 5 mg daily. 12/20 increase olanzapine to 7.5 mg daily 12/21 continue tx 12/22 seems to be responding to olanzapine ? if we could lower ativan a bit Patient educated on: medication risk/benefits Informed Consent: further education needed Reason for continued inpatient stay Substantial Risk for: inability to function and rapid decompensation Time Spent With Patient Time: Total time managing care of this patient today ____ minutes.
[2024-12-22] MEDS: OLANZapine 7.5 MG TABLET PO (09:14)
[2024-12-22] MEDS: cloNIDine HCL 0.1 MG TABLET PO ×2 (09:14→21:06)
[2024-12-22] MEDS: LORazepam 1 MG TABLET 2 MG PO ×4 (09:14→21:08)
[2024-12-22] MEDS: Thiamine HCL 100 MG TABLET 200 MG PO (09:15)
[2024-12-22] MEDS: polyethylene glycoL 3350 17 GM POWD.PACK PO (09:15)
[2024-12-22] MEDS: Benztropine Mesylate 1 MG TABLET PO ×2 (09:15→21:09)
[2024-12-22 20:00] VITALS: BP 135/84; PULSE 88; TEMP 36.9; O2SAT 98
[2024-12-22 21:06] VITALS: BP 135/85
[2024-12-22] MEDS: traZODone HCL 50 MG TABLET PO (21:09)
[2024-12-23 08:00] VITALS: BP 110/60; PULSE 99; RESP 16; TEMP 36.8; O2SAT 98
[2024-12-23] MEDS: OLANZapine 7.5 MG TABLET PO (09:00)
[2024-12-23] MEDS: Benztropine Mesylate 1 MG TABLET PO ×2 (09:00→20:05)
[2024-12-23] MEDS: LORazepam 1 MG TABLET 2 MG PO ×3 (09:00→20:05)
[2024-12-23] MEDS: polyethylene glycoL 3350 17 GM POWD.PACK PO (09:00)
[2024-12-23] MEDS: cloNIDine HCL 0.1 MG TABLET PO ×2 (09:00→20:05)
[2024-12-23] MEDS: Thiamine HCL 100 MG TABLET 200 MG PO (09:00)
--- NOTE | 2024-12-23 10:41 | P.PNPSI_ITS ---
Subjective Subjective Date of Service: 12/23/24 Reason For Visit: Psychosis Subjective Notes: Conditional Voluntary Healthcare Proxy: No Guardianship: No Medical Problems Affecting Mental Status: No Interim History: 24 yo with co AH , feeling ok and more appropriate less disorganized on unit- would like inc olanzapine to 10mg - he co depression, Nursing report no longer catatonic speaking in full sentences though sometimes poorly articulated- cooperative eating drinking fluids, walking halls but not xs pacing Medication Compliance: Yes Side effects from medications: No Attending Groups: No Review of Systems Acute medical concerns: No Medical Review of Systems: unchanged Mental Status Exam Mental Status Exam Patient Appearance: Unkempt Patient Orientation: Person, Place and Situation Level of Consciousness: Awake Mood Description: Sad Affect Description: Blunted Ability to Follow Directions: Fair Speech Pattern: Poor Articulation Hallucinations: Auditory Thought Process: Intact Thought Content: positive for [place] and positive for Poverty of Content Depressive Symptoms: Unhappiness Judgement: Fair Diagnostics Vital Signs (24Hr): Vital Signs - 24 hr 12/22/24 20:00 12/22/24 21:06 12/23/24 08:00 Temperature 98.5 F 98.2 F Pulse Rate 88 99 Respiratory Rate 16 Blood Pressure 135/84 135/85 110/60 Pulse Oximetry 98 98 Oxygen Delivery Method Room Air Room Air BMI result Body Mass Index 39.9 Labs 12/13/24 07:43 12/10/24 12:55 Imaging Radiology Impressions: ITS Impressions KUB X-Ray 12/14/24 16:10 IMPRESSION: No intestinal obstruction pattern. Electronically signed by: Wero Montanez MD 12/17/2024 08:14 AM EDT Medications Medications Current Medications Acetaminophen (Acetaminophen 325 Mg Tablet) 650 mg PO Q6H PRN PRN Reason: Headache/Pain, Scale 1-10 Last Admin: 12/16/24 12:01 Dose: 650 mg Al Hydroxide/Mg Hydroxide (Magnesium Hydrox/Alum Hydrox 30 Ml Oral.Susp) 30 ml PO Q6H PRN PRN Reason: Heartburn/Nausea Benztropine Mesylate (Benztropine Mesylate 1 Mg Tablet) 1 mg PO BID [facility] Last Admin: 12/23/24 09:00 Dose: 1 mg Clonidine HCl (Clonidine Hcl 0.1 Mg Tablet) 0.1 mg PO BID [facility] [place]; Protocol Last Admin: 12/23/24 09:00 Dose: 0.1 mg Hydroxyzine HCl (Hydroxyzine Hcl 25 Mg Tablet) 25 mg PO Q6H PRN PRN Reason: mild anxiety Last Admin: 12/15/24 23:39 Dose: 25 mg Lorazepam (Lorazepam 0.5 Mg Tablet) 0.5 mg PO Q4H PRN PRN Reason: agitation Last Admin: 12/15/24 23:39 Dose: 0.5 mg Lorazepam (Lorazepam 1 Mg Tablet) 2 mg PO QID [facility] [place] Last Admin: 12/23/24 09:00 Dose: 2 mg Magnesium Hydroxide (Milk Of Magnesia 30 Ml Oral.Susp) 30 ml PO DAILY PRN PRN Reason: Constipation Nicotine (Nicotine 21 Mg Patch.Td24) 21 mg TRANSDERMA DAILY PRN PRN Reason: smoking cessation Last Admin: 12/11/24 08:41 Dose: 21 mg Nicotine Polacrilex (Nicotine Polacrilex 2 Mg Gum) 4 mg BUCCAL Q2H PRN PRN Reason: Nicotine Cravings Olanzapine (Olanzapine 10 Mg Tablet) 10 mg PO DAILY [facility] Polyethylene Glycol (Polyethylene Glycol 3350 17 Gm Powd.Pack) 17 gm PO DAILY [facility] Last Admin: 12/23/24 09:00 Dose: 17 gm Polyethylene Glycol (Polyethylene Glycol 3350 17 Gm Powd.Pack) 17 gm PO DAILY PRN PRN Reason: continued Constipation Thiamine HCl (Thiamine Hcl 100 Mg Tablet) 200 mg PO DAILY [facility] [place] Last Admin: 12/23/24 09:00 Dose: 200 mg Trazodone HCl (Trazodone Hcl 50 Mg Tablet) 50 mg PO BEDTIME MRX1 PRN PRN Reason: Insomnia Last Admin: 12/22/24 21:09 Dose: 50 mg Allergies Allergies Allergy/AdvReac Type Severity Reaction Status Date / Time No Known Allergies Allergy Verified 12/09/24 12:43 Assessment & Plan Assessment & Plan (1) Catatonia: Status: Acute Code(s): F06.1 - Catatonic disorder due to known physiological condition (2) Schizoaffective disorder: Status: Acute Code(s): F25.9 - Schizoaffective disorder, unspecified (3) Cannabis use disorder: Status: Acute Code(s): F12.90 - Cannabis use, unspecified, uncomplicated Plan Admit, CV, One to One-SI, Disinhbition, Acute Psychosis Diagnostics as needed Collateral contact Milieu integration as tolerated Risperdal 2 mg bid Decrease Lorazepam to 0.5 mg q4h prn (pt is disinhibited, exposing himself) Depakote-continue Clonidine-continue Chlorpromazine prn (olanzapine has not been helpful by history) 12/12: DC Risperdal, Chlorpromazine Prolixin 5 bid and tid prn psychosis Increase Lorazapam to 1 mg tid Fe, CPK, CBCD, Myoglobin, EEG, B12,Folate, TSH, Valproate 12/14: KUB Continue current regime 12/15 remains with significant catatonic symptoms 1) Increased to Ativan 2mg QID. With increased dose, patient soon talked a little bit more (Ativan initially lowered out of concern that it was disinhibiting patient who was disrobing, however it seems more likely that this behavior is due to his psychotic disorganization than to effects of Ativan; currently. primary goal is to treat catatonia). 2)Discontinued Fluphenazine (for now) out of concern for antipsychotic being contributory to catatonia (also dc'd Depakote out of an abundance of caution) -Pt had told staff he has not had BM; KUB ordered but impression pending...Ordered Mirralx since no laxative ordered. Had nose bleed this morning which resolved on its own 12/16 still catatonic but a little more activity and talking a little more; though one word answers, pt responding appropriately to questions when asks. Says no voices, but later says AH remains. 12/17 plan slip box changer the weekend-continue tx 12/19 trial of olanzapine 5 mg with a decrease in auditory perceptual alterations. Continue olanzapine 5 mg daily. 12/20 increase olanzapine to 7.5 mg daily 12/21 continue tx 12/22 seems to be responding to olanzapine ? if we could lower ativan a bit 12/23- agrees to inc olanzapine to 10mg, co feels sad and ah, but less catatonic- more engagable flat affect Patient educated on: medication risk/benefits Informed Consent: understands Reason for continued inpatient stay Substantial Risk for: inability to function and rapid decompensation Time Spent With Patient Time: Total time managing care of this patient today ____ minutes.
[2024-12-23 19:45] VITALS: BP 127/72; PULSE 112; RESP 15; TEMP 36.7; O2SAT 98
[2024-12-23] MEDS: traZODone HCL 50 MG TABLET PO (20:05)
--- NOTE | 2024-12-24 | ECG_ITS ---
Test Reason : CP SINCE 12/22/24 Blood Pressure : */* mmHG Vent. Rate : 99 BPM Atrial Rate : 99 BPM P-R Int : 132 ms QRS Dur : 82 ms QT Int : 320 ms P-R-T Axes : 22 48 20 degrees QTcB Int : 410 ms Sinus rhythm with marked sinus arrhythmia Otherwise normal ECG When compared with ECG of 10-Dec-2024 06:14, No significant change was found Referred By: Carla Corey Electronically Signed By: TELMA ARITA
[2024-12-24 08:00] VITALS: BP 115/63; PULSE 84; RESP 18; TEMP 37; O2SAT 94
[2024-12-24] MEDS: polyethylene glycoL 3350 17 GM POWD.PACK PO (08:14)
[2024-12-24] MEDS: Benztropine Mesylate 1 MG TABLET PO ×2 (08:15→21:11)
[2024-12-24] MEDS: Thiamine HCL 100 MG TABLET 200 MG PO (08:15)
[2024-12-24] MEDS: cloNIDine HCL 0.1 MG TABLET PO ×2 (08:15→21:11)
[2024-12-24] MEDS: LORazepam 1 MG TABLET 2 MG PO ×4 (08:15→21:11)
[2024-12-24] MEDS: OLANZapine 10 MG TABLET PO (08:15)
[2024-12-24 16:03] LABS: MANUAL DIFF FLAG NO
[2024-12-24 16:09] LABS: Basophils Absolute Auto 0.1 X10*3/uL (0.0-0.2); Basophils Percent Auto 0.6 % (0-2); Eosinophils Absolute Auto 0.1 X10*3/uL (0.0-0.4); Hematocrit 45.9 % (42.0-52.0); Hemoglobin 15.9 g/dl (14.0-18.0); Imm Gran Abs Auto 0.05 X10*3/uL (0.00-0.03); Imm Gran Pct Auto 0.4 % (0.0-0.4); Lymphocytes Absolute Auto 3.4 X10*3/uL (1.2-4.9); Lymphocytes Percent Auto 27.6 % (20-40); Mean Corpuscular HGB Conc 34.6 g/dl (31.0-36.0); Mean Corpuscular Volume 89.5 fL (80.0-98.0); Mean Platelet Volume 10.5 fL (9.4-12.4); Monocytes Absolute Auto 1.2 X10*3/uL (0.1-1.2); Monocytes Percent Auto 9.7 % (2-11); Neutrophils Absolute Auto 7.6 x10*3/uL (2.0-8.3); Neutrophils Percent Auto 60.7 % (45-73); Platelet Count 266 X10*3/uL (160-400); Red Blood Count 5.13 X10*6/uL (4.60-5.80); Red Cell Distribution Width 12.8 % (11.0-16.0); White Blood Count 12.4 X10*3/uL (4.8-10.8)
[2024-12-24 16:30] LABS: Alanine Aminotransferase 67 U/L (0-40); Albumin Level 4.2 g/dL (3.5-5.0); Alkaline Phosphatase 88 U/L (39-117); Anion Gap 14 (12-20); Aspartate Amino Transferase 38 U/L (5-37); Bilirubin Total 0.3 mg/dL (0.0-1.0); Blood Urea Nitrogen 15 mg/dL (9-16); Calcium 9.5 mg/dL (8.4-10.2); Carbon Dioxide 24 mmol/L (22-29); Chloride 108 mmol/L (96-108); Creatinine Clr Calc Pharmacy 204.6; Estimated Glomerular Filt Rate > 60; Glucose Random 105 mg/dL (60-115); Potassium 3.9 mmol/L (3.3-5.1); Sodium 142 mmol/L (135-145); Total Protein 7.6 g/dL (6.5-8.0)
[2024-12-24 16:39] LABS: Troponin-I High Sensitivity < 2.7 ng/L (<3.5-35.0)
--- NOTE | 2024-12-24 17:24 | P.PNPSI_ITS ---
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 Reports voices are the main sx. When he compares olanzapine to prolixin, he believes prolixin worked better. Team reports decreased verbalizations over the weekend. Anxiety, all day, every day . Depression from past traumas Chest pain -6 EKG WNL, troponins <2.7. Medication Compliance: Yes Side effects from medications: No Attending Groups: No Review of Systems Acute medical concerns: No Medical Review of Systems: unchanged Review of Systems Review of Systems chest discomfort Mental Status Exam Mental Status Exam Patient Appearance: Fatigued Patient Orientation: Person, Place, Time and Situation Level of Consciousness: Alert Patient Behavior: Cooperative, Anxious, Fatigued and Distractible Mood Description: Withdrawn Affect Description: Withdrawn Patient Cognition Impaired: No Ability to Follow Directions: Fair Speech Pattern: Spontaneous Speech Memory Description: Intact Hallucinations: Auditory Thought Process: Rumination Thought Content: positive for Perseveration Depressive Symptoms: Increased Anxiety Judgement: Fair Diagnostics Vital Signs (24Hr): Vital Signs - 24 hr 12/23/24 19:45 12/24/24 08:00 Temperature 98.1 F 98.6 F Pulse Rate 112 H 84 Respiratory Rate 15 18 Blood Pressure 127/72 115/63 Pulse Oximetry 98 94 Oxygen Delivery Method Room Air BMI result Body Mass Index 39.9 Labs 12/24/24 15:41 12/24/24 15:41 Labs: Laboratory Results - last 48 hr 12/24/24 15:41 WBC 12.4 H RBC 5.13 Hgb 15.9 Hct 45.9 MCV 89.5 MCH 31.0 MCHC 34.6 RDW 12.8 Plt Count 266 MPV 10.5 Immature Gran % (Auto) 0.4 Neut % (Auto) 60.7 Lymph % (Auto) 27.6 [place] % (Auto) 9.7 Eos % (Auto) 1.0 Baso % (Auto) 0.6 Lymph # (Auto) 3.4 [place] # (Auto) 1.2 Eos # (Auto) 0.1 Baso # (Auto) 0.1 Abs Immat Gran (auto) 0.05 H Absolute Neuts (auto) 7.6 Absolute Nucleated RBC 0.000 Nucleated RBC % (auto) 0.0 Sodium 142 Potassium 3.9 Chloride 108 Carbon Dioxide 24 Anion Gap 14 BUN 15 Creatinine 0.80 Estim Creat Clear Calc 204.6 Estimated GFR > 60 Random Glucose 105 Calcium 9.5 Total Bilirubin 0.3 AST 38 H ALT 67 H Alkaline Phosphatase 88 Troponin I High Sens < 2.7 Total Protein 7.6 Albumin 4.2 Imaging Radiology Impressions: ITS Impressions KUB X-Ray 12/14/24 16:10 IMPRESSION: No intestinal obstruction pattern. Electronically signed by: Wero Montanez MD 12/17/2024 08:14 AM EDT RP Medications Medications Current Medications Acetaminophen (Acetaminophen 325 Mg Tablet) 650 mg PO Q6H PRN PRN Reason: Headache/Pain, Scale 1-10 Last Admin: 12/16/24 12:01 Dose: 650 mg Al Hydroxide/Mg Hydroxide (Magnesium Hydrox/Alum Hydrox 30 Ml Oral.Susp) 30 ml PO Q6H PRN PRN Reason: Heartburn/Nausea Benztropine Mesylate (Benztropine Mesylate 1 Mg Tablet) 1 mg PO BID [facility] Last Admin: 12/24/24 08:15 Dose: 1 mg Clonidine HCl (Clonidine Hcl 0.1 Mg Tablet) 0.1 mg PO BID [facility]; Protocol Last Admin: 12/24/24 08:15 Dose: 0.1 mg Hydroxyzine HCl (Hydroxyzine Hcl 25 Mg Tablet) 25 mg PO Q6H PRN PRN Reason: mild anxiety Last Admin: 12/15/24 23:39 Dose: 25 mg Lorazepam (Lorazepam 0.5 Mg Tablet) 0.5 mg PO Q4H PRN PRN Reason: agitation Last Admin: 12/15/24 23:39 Dose: 0.5 mg Lorazepam (Lorazepam 1 Mg Tablet) 2 mg PO QID [facility] Last Admin: 12/24/24 17:19 Dose: 2 mg Magnesium Hydroxide (Milk Of Magnesia 30 Ml Oral.Susp) 30 ml PO DAILY PRN PRN Reason: Constipation Nicotine (Nicotine 21 Mg Patch.Td24) 21 mg TRANSDERMA DAILY PRN PRN Reason: smoking cessation Last Admin: 12/11/24 08:41 Dose: 21 mg Nicotine Polacrilex (Nicotine Polacrilex 2 Mg Gum) 4 mg BUCCAL Q2H PRN PRN Reason: Nicotine Cravings Olanzapine (Olanzapine 10 Mg Tablet) 10 mg PO DAILY [facility] Last Admin: 12/24/24 08:15 Dose: 10 mg Polyethylene Glycol (Polyethylene Glycol 3350 17 Gm Powd.Pack) 17 gm PO DAILY [facility] Last Admin: 12/24/24 08:14 Dose: 17 gm Polyethylene Glycol (Polyethylene Glycol 3350 17 Gm Powd.Pack) 17 gm PO DAILY PRN PRN Reason: continued Constipation Thiamine HCl (Thiamine Hcl 100 Mg Tablet) 200 mg PO DAILY [facility] Last Admin: 12/24/24 08:15 Dose: 200 mg Trazodone HCl (Trazodone Hcl 50 Mg Tablet) 50 mg PO BEDTIME MRX1 PRN PRN Reason: Insomnia Last Admin: 12/23/24 20:05 Dose: 50 mg Allergies Allergies Allergy/AdvReac Type Severity Reaction Status Date / Time No Known Allergies Allergy Verified 12/09/24 12:43 Assessment & Plan Assessment & Plan (1) Catatonia: Status: Acute Code(s): F06.1 - Catatonic disorder due to known physiological condition (2) Schizoaffective disorder: Status: Acute Code(s): F25.9 - Schizoaffective disorder, unspecified (3) Cannabis use disorder: Status: Acute Code(s): F12.90 - Cannabis use, unspecified, uncomplicated Plan Admit, CV, One to One-SI, Disinhbition, Acute Psychosis Diagnostics as needed Collateral contact Milieu integration as tolerated Risperdal 2 mg bid Decrease Lorazepam to 0.5 mg q4h prn (pt is disinhibited, exposing himself) Depakote-continue Clonidine-continue Chlorpromazine prn (olanzapine has not been helpful by history) 12/12: DC Risperdal, Chlorpromazine Prolixin 5 bid and tid prn psychosis Increase Lorazapam to 1 mg tid Fe, CPK, CBCD, Myoglobin, EEG, B12,Folate, TSH, Valproate 12/14: KUB Continue current regime 12/15 remains with significant catatonic symptoms 1) Increased to Ativan 2mg QID. With increased dose, patient soon talked a little bit more (Ativan initially lowered out of concern that it was disinhibiting patient who was disrobing, however it seems more likely that this behavior is due to his psychotic disorganization than to effects of Ativan; currently. primary goal is to treat catatonia). 2)Discontinued Fluphenazine (for now) out of concern for antipsychotic being contributory to catatonia (also dc'd Depakote out of an abundance of caution) -Pt had told staff he has not had BM; KUB ordered but impression pending...Ordered Mirralx since no laxative ordered. Had nose bleed this morning which resolved on its own 12/16 still catatonic but a little more activity and talking a little more; though one word answers, pt responding appropriately to questions when asks. Says no voices, but later says AH remains. 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 Continue olanzapine 5 mg daily. 12/20 increase olanzapine to 7.5 mg daily 12/21 continue tx 12/22 seems to be responding to olanzapine ? if we could lower ativan a bit 12/23- agrees to inc olanzapine to 10mg, co feels sad and ah, but less catatonic- more engagable flat affect 12/24- DC Olanzapine Prolixin 5 mg bid Reason for continued inpatient stay Substantial Risk for: rapid decompensation Time Spent With Patient Time: Total time managing care of this patient today ____ minutes.
[2024-12-24 20:00] VITALS: BP 143/94; PULSE 128; TEMP 36.6; O2SAT 96
[2024-12-24] MEDS: traZODone HCL 50 MG TABLET PO (21:11)
[2024-12-24] MEDS: fluPHENAZine HCl 5 MG TABLET PO (21:11)
[2024-12-25] MEDS: cloNIDine HCL 0.1 MG TABLET PO ×2 (08:19→20:13)
[2024-12-25] MEDS: LORazepam 1 MG TABLET 2 MG PO ×4 (08:19→20:12)
[2024-12-25] MEDS: Benztropine Mesylate 1 MG TABLET PO ×2 (08:20→20:13)
[2024-12-25] MEDS: fluPHENAZine HCl 5 MG TABLET PO ×2 (08:20→20:12)
[2024-12-25] MEDS: Thiamine HCL 100 MG TABLET 200 MG PO (08:20)
[2024-12-25] MEDS: polyethylene glycoL 3350 17 GM POWD.PACK PO (08:22)
[2024-12-25 08:25] VITALS: BP 144/63; PULSE 97; RESP 16; TEMP 37.2; O2SAT 97
--- NOTE | 2024-12-25 11:03 | HO.PSYCHPN ---
Subjective Subjective Date of Service: 12/25/24 Reason For Visit: Psychosis Subjective Notes: Conditional Voluntary Healthcare Proxy: No Guardianship: No Medical Problems Affecting Mental Status: No Interim History: T 99.3 WBC 12.4. Urine culture sent. Denies physical sx. Reports anxiety, pricks in my heart . Diagnostics essentially negative. Asks for more sandwiches Team reports he is slow to respond and when asked to help move his room today he returned to bed. Reports he is sleeping. No adverse effect from a change to Prolixin from Olanzapine. Medication Compliance: Yes Side effects from medications: No Attending Groups: No Review of Systems Acute medical concerns: No Review of Systems Review of Systems describes his anxiety at pricks in my heart Mental Status Exam Mental Status Exam Patient Appearance: Fatigued Patient Orientation: Person, Place, Time and Situation Level of Consciousness: Alert Patient Behavior: Cooperative, Anxious, Fatigued and Distractible Mood Description: Withdrawn Affect Description: Withdrawn Patient Cognition Impaired: No Ability to Follow Directions: Fair Speech Pattern: Spontaneous Speech Memory Description: Intact Hallucinations: Auditory Thought Process: Rumination Thought Content: positive for Perseveration Depressive Symptoms: Increased Anxiety Judgement: Fair Diagnostics Vital Signs (24Hr): Vital Signs - 24 hr 12/24/24 20:00 12/25/24 08:25 Temperature 97.8 F 98.9 F Pulse Rate 128 H 97 Respiratory Rate 16 Blood Pressure 143/94 H 144/63 H Pulse Oximetry 96 97 Oxygen Delivery Method Room Air Room Air BMI result Body Mass Index 39.9 Labs 12/24/24 15:41 12/24/24 15:41 Labs: Laboratory Results - last 48 hr 12/24/24 15:41 WBC 12.4 H RBC 5.13 Hgb 15.9 Hct 45.9 MCV 89.5 MCH 31.0 MCHC 34.6 RDW 12.8 Plt Count 266 MPV 10.5 Immature Gran % (Auto) 0.4 Neut % (Auto) 60.7 Lymph % (Auto) 27.6 [place] % (Auto) 9.7 Eos % (Auto) 1.0 Baso % (Auto) 0.6 Lymph # (Auto) 3.4 [place] # (Auto) 1.2 Eos # (Auto) 0.1 Baso # (Auto) 0.1 Abs Immat Gran (auto) 0.05 H Absolute Neuts (auto) 7.6 Absolute Nucleated RBC 0.000 Nucleated RBC % (auto) 0.0 Sodium 142 Potassium 3.9 Chloride 108 Carbon Dioxide 24 Anion Gap 14 BUN 15 Creatinine 0.80 Estim Creat Clear Calc 204.6 Estimated GFR > 60 Random Glucose 105 Calcium 9.5 Total Bilirubin 0.3 AST 38 H ALT 67 H Alkaline Phosphatase 88 Troponin I High Sens < 2.7 Total Protein 7.6 Albumin 4.2 Imaging Radiology Impressions: ITS Impressions KUB X-Ray 12/14/24 16:10 IMPRESSION: No intestinal obstruction pattern. Electronically signed by: Wero Montanez MD 12/17/2024 08:14 AM EDT RP Medications Medications Current Medications Acetaminophen (Acetaminophen 325 Mg Tablet) 650 mg PO Q6H PRN PRN Reason: Headache/Pain, Scale 1-10 Last Admin: 12/16/24 12:01 Dose: 650 mg Al Hydroxide/Mg Hydroxide (Magnesium Hydrox/Alum Hydrox 30 Ml Oral.Susp) 30 ml PO Q6H PRN PRN Reason: Heartburn/Nausea Benztropine Mesylate (Benztropine Mesylate 1 Mg Tablet) 1 mg PO BID [facility] Last Admin: 12/25/24 08:20 Dose: 1 mg Clonidine HCl (Clonidine Hcl 0.1 Mg Tablet) 0.1 mg PO BID [facility]; Protocol Last Admin: 12/25/24 08:19 Dose: 0.1 mg Fluphenazine HCl (Fluphenazine Hcl 5 Mg Tablet) 5 mg PO BID [facility] Last Admin: 12/25/24 08:20 Dose: 5 mg Hydroxyzine HCl (Hydroxyzine Hcl 25 Mg Tablet) 25 mg PO Q6H PRN PRN Reason: mild anxiety Last Admin: 12/15/24 23:39 Dose: 25 mg Lorazepam (Lorazepam 0.5 Mg Tablet) 0.5 mg PO Q4H PRN PRN Reason: agitation Last Admin: 12/15/24 23:39 Dose: 0.5 mg Lorazepam (Lorazepam 1 Mg Tablet) 2 mg PO QID [facility] Last Admin: 12/25/24 08:19 Dose: 2 mg Magnesium Hydroxide (Milk Of Magnesia 30 Ml Oral.Susp) 30 ml PO DAILY PRN PRN Reason: Constipation Nicotine (Nicotine 21 Mg Patch.Td24) 21 mg TRANSDERMA DAILY PRN PRN Reason: smoking cessation Last Admin: 12/11/24 08:41 Dose: 21 mg Nicotine Polacrilex (Nicotine Polacrilex 2 Mg Gum) 4 mg BUCCAL Q2H PRN PRN Reason: Nicotine Cravings Polyethylene Glycol (Polyethylene Glycol 3350 17 Gm Powd.Pack) 17 gm PO DAILY [facility] Last Admin: 12/25/24 08:22 Dose: 17 gm Polyethylene Glycol (Polyethylene Glycol 3350 17 Gm Powd.Pack) 17 gm PO DAILY PRN PRN Reason: continued Constipation Thiamine HCl (Thiamine Hcl 100 Mg Tablet) 200 mg PO DAILY [facility] Last Admin: 12/25/24 08:20 Dose: 200 mg Trazodone HCl (Trazodone Hcl 50 Mg Tablet) 50 mg PO BEDTIME MRX1 PRN PRN Reason: Insomnia Last Admin: 12/24/24 21:11 Dose: 50 mg Allergies Allergies Allergy/AdvReac Type Severity Reaction Status Date / Time No Known Allergies Allergy Verified 12/09/24 12:43 Assessment & Plan Assessment & Plan (1) Catatonia: Status: Acute Code(s): F06.1 - Catatonic disorder due to known physiological condition (2) Schizoaffective disorder: Status: Acute Code(s): F25.9 - Schizoaffective disorder, unspecified (3) Cannabis use disorder: Status: Acute Code(s): F12.90 - Cannabis use, unspecified, uncomplicated Plan Admit, CV, One to One-SI, Disinhbition, Acute Psychosis Diagnostics as needed Collateral contact Milieu integration as tolerated Risperdal 2 mg bid Decrease Lorazepam to 0.5 mg q4h prn (pt is disinhibited, exposing himself) Depakote-continue Clonidine-continue Chlorpromazine prn (olanzapine has not been helpful by history) 12/12: DC Risperdal, Chlorpromazine Prolixin 5 bid and tid prn psychosis Increase Lorazapam to 1 mg tid Fe, CPK, CBCD, Myoglobin, EEG, B12,Folate, TSH, Valproate 12/14: KUB Continue current regime 12/15 remains with significant catatonic symptoms 1) Increased to Ativan 2mg QID. With increased dose, patient soon talked a little bit more (Ativan initially lowered out of concern that it was disinhibiting patient who was disrobing, however it seems more likely that this behavior is due to his psychotic disorganization than to effects of Ativan; currently. primary goal is to treat catatonia). 2)Discontinued Fluphenazine (for now) out of concern for antipsychotic being contributory to catatonia (also dc'd Depakote out of an abundance of caution) -Pt had told staff he has not had BM; KUB ordered but impression pending...Ordered Mirralx since no laxative ordered. Had nose bleed this morning which resolved on its own 12/16 still catatonic but a little more activity and talking a little more; though one word answers, pt responding appropriately to questions when asks. Says no voices, but later says AH remains. 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 Continue olanzapine 5 mg daily. 12/20 increase olanzapine to 7.5 mg daily 12/21 continue tx 12/22 seems to be responding to olanzapine ? if we could lower ativan a bit 12/23- agrees to inc olanzapine to 10mg, co feels sad and ah, but less catatonic- more engagable flat affect 12/25- Decrease Lorazepam to 2 mg tid, a decrease of 2 mg. Reason for continued inpatient stay Substantial Risk for: rapid decompensation Time Spent With Patient Time: Total time managing care of this patient today ____ minutes.
[2024-12-25 12:44] VITALS: TEMP 37.4
[2024-12-25 20:00] VITALS: BP 99/60; PULSE 108; RESP 16; TEMP 36.8; O2SAT 98
[2024-12-26 08:00] VITALS: BP 135/74; PULSE 87; RESP 16; TEMP 36.5; O2SAT 98
[2024-12-26] MEDS: Benztropine Mesylate 1 MG TABLET PO ×2 (08:57→20:41)
[2024-12-26] MEDS: LORazepam 1 MG TABLET 2 MG PO ×3 (08:57→20:40)
[2024-12-26] MEDS: cloNIDine HCL 0.1 MG TABLET PO ×2 (08:57→20:39)
[2024-12-26] MEDS: fluPHENAZine HCl 5 MG TABLET PO ×2 (08:57→20:41)
[2024-12-26] MEDS: Thiamine HCL 100 MG TABLET 200 MG PO (08:57)
[2024-12-26] MEDS: polyethylene glycoL 3350 17 GM POWD.PACK PO (08:58)
[2024-12-26] MEDS: LORazepam 0.5 MG TABLET PO ×2 (11:32→17:00)
--- NOTE | 2024-12-26 15:50 | P.PNPSI_ITS ---
Subjective Subjective Date of Service: 12/26/24 Reason For Visit: Psychosis Interim History: Keeping to self. pacing unit hallway at times. Patient reports feeling sad and anxious ; pt stated, I don't know why I feel this way . guarded and difficult to engage. Denies SI/HI/VH. He reports auditory hallucinations, when asked what they were saying, pt began speaking Indonesian and stated, I don't know . Medication Compliance: Yes Side effects from medications: No Mental Status Exam Mental Status Exam Patient Appearance: Appropriate Patient Orientation: Person, Place and Situation Level of Consciousness: Awake Patient Behavior: Guarded and Cooperative Mood Description: Anxious and Sad Affect Description: Blunted Ability to Follow Directions: Good Speech Pattern: Soft-Spoken and Delayed Hallucinations: Auditory Thought Process: Slowed Thinking Thought Content: positive for Slowed Thinking Diagnostics Vital Signs (24Hr): Vital Signs - 24 hr 12/25/24 20:00 12/26/24 08:00 Temperature 98.2 F 97.7 F Pulse Rate 108 H 87 Respiratory Rate 16 16 Blood Pressure 99/60 135/74 Pulse Oximetry 98 98 Oxygen Delivery Method Room Air BMI result Body Mass Index 39.9 Labs 12/24/24 15:41 12/24/24 15:41 Labs: Laboratory Results - last 48 hr 12/24/24 15:41 WBC 12.4 H RBC 5.13 Hgb 15.9 Hct 45.9 MCV 89.5 MCH 31.0 MCHC 34.6 RDW 12.8 Plt Count 266 MPV 10.5 Immature Gran % (Auto) 0.4 Neut % (Auto) 60.7 Lymph % (Auto) 27.6 [place] % (Auto) 9.7 Eos % (Auto) 1.0 Baso % (Auto) 0.6 Lymph # (Auto) 3.4 [place] # (Auto) 1.2 Eos # (Auto) 0.1 Baso # (Auto) 0.1 Abs Immat Gran (auto) 0.05 H Absolute Neuts (auto) 7.6 Absolute Nucleated RBC 0.000 Nucleated RBC % (auto) 0.0 Sodium 142 Potassium 3.9 Chloride 108 Carbon Dioxide 24 Anion Gap 14 BUN 15 Creatinine 0.80 Estim Creat Clear Calc 204.6 Estimated GFR > 60 Random Glucose 105 Calcium 9.5 Total Bilirubin 0.3 AST 38 H ALT 67 H Alkaline Phosphatase 88 Troponin I High Sens < 2.7 Total Protein 7.6 Albumin 4.2 Imaging Radiology Impressions: ITS Impressions KUB X-Ray 12/14/24 16:10 IMPRESSION: No intestinal obstruction pattern. Electronically signed by: Wero Montanez MD 12/17/2024 08:14 AM EDT Medications Medications Current Medications Acetaminophen (Acetaminophen 325 Mg Tablet) 650 mg PO Q6H PRN PRN Reason: Headache/Pain, Scale 1-10 Last Admin: 12/16/24 12:01 Dose: 650 mg Al Hydroxide/Mg Hydroxide (Magnesium Hydrox/Alum Hydrox 30 Ml Oral.Susp) 30 ml PO Q6H PRN PRN Reason: Heartburn/Nausea Benztropine Mesylate (Benztropine Mesylate 1 Mg Tablet) 1 mg PO BID [facility] Last Admin: 12/26/24 08:57 Dose: 1 mg Clonidine HCl (Clonidine Hcl 0.1 Mg Tablet) 0.1 mg PO BID [facility]; Protocol Last Admin: 12/26/24 08:57 Dose: 0.1 mg Fluphenazine HCl (Fluphenazine Hcl 5 Mg Tablet) 5 mg PO BID [facility] Last Admin: 12/26/24 08:57 Dose: 5 mg Hydroxyzine HCl (Hydroxyzine Hcl 25 Mg Tablet) 25 mg PO Q6H PRN PRN Reason: mild anxiety Last Admin: 12/15/24 23:39 Dose: 25 mg Lorazepam (Lorazepam 0.5 Mg Tablet) 0.5 mg PO Q4H PRN PRN Reason: agitation Last Admin: 12/26/24 11:32 Dose: 0.5 mg Lorazepam (Lorazepam 1 Mg Tablet) 2 mg PO TID [facility] Last Admin: 12/26/24 14:01 Dose: 2 mg Magnesium Hydroxide (Milk Of Magnesia 30 Ml Oral.Susp) 30 ml PO DAILY PRN PRN Reason: Constipation Nicotine (Nicotine 21 Mg Patch.Td24) 21 mg TRANSDERMA DAILY PRN PRN Reason: smoking cessation Last Admin: 12/11/24 08:41 Dose: 21 mg Nicotine Polacrilex (Nicotine Polacrilex 2 Mg Gum) 4 mg BUCCAL Q2H PRN PRN Reason: Nicotine Cravings Polyethylene Glycol (Polyethylene Glycol 3350 17 Gm Powd.Pack) 17 gm PO DAILY [facility] Last Admin: 12/26/24 08:58 Dose: 17 gm Polyethylene Glycol (Polyethylene Glycol 3350 17 Gm Powd.Pack) 17 gm PO DAILY PRN PRN Reason: continued Constipation Thiamine HCl (Thiamine Hcl 100 Mg Tablet) 200 mg PO DAILY [facility] Last Admin: 12/26/24 08:57 Dose: 200 mg Trazodone HCl (Trazodone Hcl 50 Mg Tablet) 50 mg PO BEDTIME MRX1 PRN PRN Reason: Insomnia Last Admin: 12/24/24 21:11 Dose: 50 mg Allergies Allergies Allergy/AdvReac Type Severity Reaction Status Date / Time No Known Allergies Allergy Verified 12/09/24 12:43 Assessment & Plan Assessment & Plan (1) Catatonia: Status: Acute Code(s): F06.1 - Catatonic disorder due to known physiological condition (2) Schizoaffective disorder: Status: Acute Code(s): F25.9 - Schizoaffective disorder, unspecified (3) Cannabis use disorder: Status: Acute Code(s): F12.90 - Cannabis use, unspecified, uncomplicated Plan Admit, CV, One to One-SI, Disinhbition, Acute Psychosis Diagnostics as needed Collateral contact Milieu integration as tolerated Risperdal 2 mg bid Decrease Lorazepam to 0.5 mg q4h prn (pt is disinhibited, exposing himself) Depakote-continue Clonidine-continue Chlorpromazine prn (olanzapine has not been helpful by history) 12/12: DC Risperdal, Chlorpromazine Prolixin 5 bid and tid prn psychosis Increase Lorazapam to 1 mg tid Fe, CPK, CBCD, Myoglobin, EEG, B12,Folate, TSH, Valproate 12/14: KUB Continue current regime 12/15 remains with significant catatonic symptoms 1) Increased to Ativan 2mg QID. With increased dose, patient soon talked a little bit more (Ativan initially lowered out of concern that it was disinhibiting patient who was disrobing, however it seems more likely that this behavior is due to his psychotic disorganization than to effects of Ativan; currently. primary goal is to treat catatonia). 2)Discontinued Fluphenazine (for now) out of concern for antipsychotic being contributory to catatonia (also dc'd Depakote out of an abundance of caution) -Pt had told staff he has not had BM; KUB ordered but impression pending...Ordered Mirralx since no laxative ordered. Had nose bleed this morning which resolved on its own 12/16 still catatonic but a little more activity and talking a little more; though one word answers, pt responding appropriately to questions when asks. Says no voices, but later says AH remains. 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 Continue olanzapine 5 mg daily. 12/20 increase olanzapine to 7.5 mg daily 12/21 continue tx 12/22 seems to be responding to olanzapine ? if we could lower ativan a bit 12/23- agrees to inc olanzapine to 10mg, co feels sad and ah, but less catatonic- more engagable flat affect 12/25- Decrease Lorazepam to 2 mg tid, a decrease of 2 mg. 12/26: difficult to engage. +AH; continue current tx plan. Patient educated on: medication risk/benefits Reason for continued inpatient stay Substantial Risk for: med/psych decompensation Time Spent With Patient Time: Total time managing care of this patient today _10___ minutes.
[2024-12-26 20:00] VITALS: BP 143/74; PULSE 104; TEMP 36.8; O2SAT 97
[2024-12-26 20:39] VITALS: BP 143/74
[2024-12-26] MEDS: traZODone HCL 50 MG TABLET PO ×2 (20:41→22:05)
[2024-12-27 07:00] VITALS: BMI 40.5
[2024-12-27 08:00] VITALS: BP 150/65; PULSE 112; RESP 18; TEMP 37.1; O2SAT 97
[2024-12-27] MEDS: Thiamine HCL 100 MG TABLET 200 MG PO (08:26)
[2024-12-27] MEDS: Benztropine Mesylate 1 MG TABLET PO ×2 (08:26→20:39)
[2024-12-27] MEDS: fluPHENAZine HCl 5 MG TABLET PO ×3 (08:26→20:40)
[2024-12-27] MEDS: cloNIDine HCL 0.1 MG TABLET PO ×2 (08:26→20:40)
[2024-12-27] MEDS: polyethylene glycoL 3350 17 GM POWD.PACK PO (08:26)
[2024-12-27] MEDS: LORazepam 1 MG TABLET 2 MG PO ×4 (08:26→20:39)
--- NOTE | 2024-12-27 11:53 | HO.PSYCHPN ---
Subjective Subjective Date of Service: 12/27/24 Reason For Visit: Psychosis Subjective Notes: Conditional Voluntary Healthcare Proxy: No Guardianship: No Medical Problems Affecting Mental Status: No Interim History: Reports anxiety is high-identifies precipitants today as the law - taxes-worked and unsure if he paid enough taxes-used money for fast food, cannabis, fears losing mom due to or deportation. Continues to hear a voice, gabriela Bishop Medication Compliance: Yes Side effects from medications: No Attending Groups: No Review of Systems Acute medical concerns: No Review of Systems Review of Systems Yes all other systems are reviewed and are negative Mental Status Exam Mental Status Exam Patient Appearance: Appropriate Patient Orientation: Person, Place and Situation Level of Consciousness: Awake Patient Behavior: Guarded and Cooperative Mood Description: Anxious and Sad Affect Description: Blunted Ability to Follow Directions: Good Speech Pattern: Soft-Spoken and Delayed Hallucinations: Auditory Thought Process: Slowed Thinking Thought Content: positive for Slowed Thinking Diagnostics Vital Signs (24Hr): Vital Signs - 24 hr 12/26/24 20:00 12/26/24 20:39 12/27/24 08:00 Temperature 98.2 F 98.8 F Pulse Rate 104 H 112 H Respiratory Rate 18 Blood Pressure 143/74 H 143/74 H 150/65 H Pulse Oximetry 97 97 Oxygen Delivery Method Room Air Room Air BMI result Body Mass Index 39.9 Labs 12/24/24 15:41 12/24/24 15:41 Imaging Radiology Impressions: ITS Impressions KUB X-Ray 12/14/24 16:10 IMPRESSION: No intestinal obstruction pattern. Electronically signed by: Wero Montanez MD 12/17/2024 08:14 AM EDT Medications Medications Current Medications Acetaminophen (Acetaminophen 325 Mg Tablet) 650 mg PO Q6H PRN PRN Reason: Headache/Pain, Scale 1-10 Last Admin: 12/16/24 12:01 Dose: 650 mg Al Hydroxide/Mg Hydroxide (Magnesium Hydrox/Alum Hydrox 30 Ml Oral.Susp) 30 ml PO Q6H PRN PRN Reason: Heartburn/Nausea Benztropine Mesylate (Benztropine Mesylate 1 Mg Tablet) 1 mg PO BID [facility] Last Admin: 12/27/24 08:26 Dose: 1 mg Clonidine HCl (Clonidine Hcl 0.1 Mg Tablet) 0.1 mg PO BID [facility]; Protocol Last Admin: 12/27/24 08:26 Dose: 0.1 mg Fluphenazine HCl (Fluphenazine Hcl 5 Mg Tablet) 5 mg PO TID [facility] Hydroxyzine HCl (Hydroxyzine Hcl 25 Mg Tablet) 25 mg PO Q6H PRN PRN Reason: mild anxiety Last Admin: 12/15/24 23:39 Dose: 25 mg Lorazepam (Lorazepam 0.5 Mg Tablet) 0.5 mg PO Q4H PRN PRN Reason: agitation Last Admin: 12/26/24 17:00 Dose: 0.5 mg Lorazepam (Lorazepam 1 Mg Tablet) 2 mg PO QID [facility] Magnesium Hydroxide (Milk Of Magnesia 30 Ml Oral.Susp) 30 ml PO DAILY PRN PRN Reason: Constipation Nicotine (Nicotine 21 Mg Patch.Td24) 21 mg TRANSDERMA DAILY PRN PRN Reason: smoking cessation Last Admin: 12/11/24 08:41 Dose: 21 mg Nicotine Polacrilex (Nicotine Polacrilex 2 Mg Gum) 4 mg BUCCAL Q2H PRN PRN Reason: Nicotine Cravings Polyethylene Glycol (Polyethylene Glycol 3350 17 Gm Powd.Pack) 17 gm PO DAILY [facility] Last Admin: 12/27/24 08:26 Dose: 17 gm Polyethylene Glycol (Polyethylene Glycol 3350 17 Gm Powd.Pack) 17 gm PO DAILY PRN PRN Reason: continued Constipation Thiamine HCl (Thiamine Hcl 100 Mg Tablet) 200 mg PO DAILY [facility] Last Admin: 12/27/24 08:26 Dose: 200 mg Trazodone HCl (Trazodone Hcl 50 Mg Tablet) 50 mg PO BEDTIME MRX1 PRN PRN Reason: Insomnia Last Admin: 12/26/24 22:05 Dose: 50 mg Allergies Allergies Allergy/AdvReac Type Severity Reaction Status Date / Time No Known Allergies Allergy Verified 12/09/24 12:43 Assessment & Plan Assessment & Plan (1) Catatonia: Status: Acute Code(s): F06.1 - Catatonic disorder due to known physiological condition (2) Schizoaffective disorder: Status: Acute Code(s): F25.9 - Schizoaffective disorder, unspecified (3) Cannabis use disorder: Status: Acute Code(s): F12.90 - Cannabis use, unspecified, uncomplicated Plan Admit, CV, One to One-SI, Disinhbition, Acute Psychosis Diagnostics as needed Collateral contact Milieu integration as tolerated Risperdal 2 mg bid Decrease Lorazepam to 0.5 mg q4h prn (pt is disinhibited, exposing himself) Depakote-continue Clonidine-continue Chlorpromazine prn (olanzapine has not been helpful by history) 12/12: DC Risperdal, Chlorpromazine Prolixin 5 bid and tid prn psychosis Increase Lorazapam to 1 mg tid Fe, CPK, CBCD, Myoglobin, EEG, B12,Folate, TSH, Valproate 12/14: KUB Continue current regime 12/15 remains with significant catatonic symptoms 1) Increased to Ativan 2mg QID. With increased dose, patient soon talked a little bit more (Ativan initially lowered out of concern that it was disinhibiting patient who was disrobing, however it seems more likely that this behavior is due to his psychotic disorganization than to effects of Ativan; currently. primary goal is to treat catatonia). 2)Discontinued Fluphenazine (for now) out of concern for antipsychotic being contributory to catatonia (also dc'd Depakote out of an abundance of caution) -Pt had told staff he has not had BM; KUB ordered but impression pending...Ordered Mirralx since no laxative ordered. Had nose bleed this morning which resolved on its own 12/16 still catatonic but a little more activity and talking a little more; though one word answers, pt responding appropriately to questions when asks. Says no voices, but later says AH remains. 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 Continue olanzapine 5 mg daily. 12/20 increase olanzapine to 7.5 mg daily 12/21 continue tx 12/22 seems to be responding to olanzapine ? if we could lower ativan a bit 12/23- agrees to inc olanzapine to 10mg, co feels sad and ah, but less catatonic- more engagable flat affect 12/25- Decrease Lorazepam to 2 mg tid, a decrease of 2 mg. 12/26: difficult to engage. +AH; continue current tx plan. 12/27 Increase Prolixin Return Lorazepam to 2 mg qid Reason for continued inpatient stay Substantial Risk for: rapid decompensation Time Spent With Patient Time: Total time managing care of this patient today ____ minutes.
[2024-12-27] MEDS: hydrOXYzine HCL 25 MG TABLET PO (13:19)
[2024-12-27 20:00] VITALS: BP 134/75; PULSE 124; TEMP 36.7; O2SAT 97
[2024-12-27 20:40] VITALS: BP 134/75
[2024-12-27] MEDS: traZODone HCL 50 MG TABLET PO (20:40)
[2024-12-28] MEDS: LORazepam 0.5 MG TABLET PO ×2 (07:28→23:24)
[2024-12-28 08:53] VITALS: BP 145/68
[2024-12-28] MEDS: Benztropine Mesylate 1 MG TABLET PO ×2 (08:53→21:09)
[2024-12-28] MEDS: cloNIDine HCL 0.1 MG TABLET PO ×2 (08:53→21:09)
[2024-12-28] MEDS: fluPHENAZine HCl 5 MG TABLET PO ×3 (08:53→21:09)
[2024-12-28] MEDS: Thiamine HCL 100 MG TABLET 200 MG PO (08:53)
[2024-12-28] MEDS: LORazepam 1 MG TABLET 2 MG PO ×4 (08:53→21:09)
[2024-12-28] MEDS: polyethylene glycoL 3350 17 GM POWD.PACK PO (08:54)
--- NOTE | 2024-12-28 09:39 | P.PNPSI_ITS ---
Subjective Subjective Date of Service: 12/28/24 Reason For Visit: Psychosis Subjective Notes: Conditional Voluntary Interim History: Anxiety persists Will meet with [facility] 01/01 to begin service eval Talking about going home. Medication Compliance: Yes Side effects from medications: No Attending Groups: No Review of Systems Acute medical concerns: No Review of Systems Review of Systems Denies Mental Status Exam Mental Status Exam Patient Appearance: Appropriate Patient Orientation: Person, Place and Situation Level of Consciousness: Awake Patient Behavior: Guarded and Cooperative Mood Description: Anxious and Sad Affect Description: Anxious Ability to Follow Directions: Good Speech Pattern: Soft-Spoken and Delayed Hallucinations: Auditory Thought Process: Slowed Thinking Thought Content: positive for Slowed Thinking Diagnostics Vital Signs (24Hr): Vital Signs - 24 hr 12/27/24 20:00 12/27/24 20:40 12/28/24 08:53 Temperature 98.1 F Pulse Rate 124 H Blood Pressure 134/75 134/75 145/68 H Pulse Oximetry 97 Oxygen Delivery Method Room Air BMI result Body Mass Index 40.5 Labs 12/24/24 15:41 12/24/24 15:41 Imaging Radiology Impressions: ITS Impressions KUB X-Ray 12/14/24 16:10 IMPRESSION: No intestinal obstruction pattern. Electronically signed by: Wero Montanez MD 12/17/2024 08:14 AM EDT Medications Medications Current Medications Acetaminophen (Acetaminophen 325 Mg Tablet) 650 mg PO Q6H PRN PRN Reason: Headache/Pain, Scale 1-10 Last Admin: 12/16/24 12:01 Dose: 650 mg Al Hydroxide/Mg Hydroxide (Magnesium Hydrox/Alum Hydrox 30 Ml Oral.Susp) 30 ml PO Q6H PRN PRN Reason: Heartburn/Nausea Benztropine Mesylate (Benztropine Mesylate 1 Mg Tablet) 1 mg PO BID [facility] Last Admin: 12/28/24 08:53 Dose: 1 mg Clonidine HCl (Clonidine Hcl 0.1 Mg Tablet) 0.1 mg PO BID [facility]; Protocol Last Admin: 12/28/24 08:53 Dose: 0.1 mg Fluphenazine HCl (Fluphenazine Hcl 5 Mg Tablet) 5 mg PO TID [facility] Last Admin: 12/28/24 08:53 Dose: 5 mg Hydroxyzine HCl (Hydroxyzine Hcl 25 Mg Tablet) 25 mg PO Q6H PRN PRN Reason: mild anxiety Last Admin: 12/27/24 13:19 Dose: 25 mg Lorazepam (Lorazepam 0.5 Mg Tablet) 0.5 mg PO Q4H PRN PRN Reason: agitation Last Admin: 12/28/24 07:28 Dose: 0.5 mg Lorazepam (Lorazepam 1 Mg Tablet) 2 mg PO QID [facility] Last Admin: 12/28/24 08:53 Dose: 2 mg Magnesium Hydroxide (Milk Of Magnesia 30 Ml Oral.Susp) 30 ml PO DAILY PRN PRN Reason: Constipation Nicotine (Nicotine 21 Mg Patch.Td24) 21 mg TRANSDERMA DAILY PRN PRN Reason: smoking cessation Last Admin: 12/11/24 08:41 Dose: 21 mg Nicotine Polacrilex (Nicotine Polacrilex 2 Mg Gum) 4 mg BUCCAL Q2H PRN PRN Reason: Nicotine Cravings Polyethylene Glycol (Polyethylene Glycol 3350 17 Gm Powd.Pack) 17 gm PO DAILY [facility] Last Admin: 12/28/24 08:54 Dose: 17 gm Polyethylene Glycol (Polyethylene Glycol 3350 17 Gm Powd.Pack) 17 gm PO DAILY PRN PRN Reason: continued Constipation Thiamine HCl (Thiamine Hcl 100 Mg Tablet) 200 mg PO DAILY [facility] Last Admin: 12/28/24 08:53 Dose: 200 mg Trazodone HCl (Trazodone Hcl 50 Mg Tablet) 50 mg PO BEDTIME MRX1 PRN PRN Reason: Insomnia Last Admin: 12/27/24 20:40 Dose: 50 mg Allergies Allergies Allergy/AdvReac Type Severity Reaction Status Date / Time No Known Allergies Allergy Verified 12/09/24 12:43 Assessment & Plan Assessment & Plan (1) Catatonia: Status: Acute Code(s): F06.1 - Catatonic disorder due to known physiological condition (2) Schizoaffective disorder: Status: Acute Code(s): F25.9 - Schizoaffective disorder, unspecified (3) Cannabis use disorder: Status: Acute Code(s): F12.90 - Cannabis use, unspecified, uncomplicated Plan Admit, CV, One to One-SI, Disinhbition, Acute Psychosis Diagnostics as needed Collateral contact Milieu integration as tolerated Risperdal 2 mg bid Decrease Lorazepam to 0.5 mg q4h prn (pt is disinhibited, exposing himself) Depakote-continue Clonidine-continue Chlorpromazine prn (olanzapine has not been helpful by history) 12/12: DC Risperdal, Chlorpromazine Prolixin 5 bid and tid prn psychosis Increase Lorazapam to 1 mg tid Fe, CPK, CBCD, Myoglobin, EEG, B12,Folate, TSH, Valproate 12/14: KUB Continue current regime 12/15 remains with significant catatonic symptoms 1) Increased to Ativan 2mg QID. With increased dose, patient soon talked a little bit more (Ativan initially lowered out of concern that it was disinhibiting patient who was disrobing, however it seems more likely that this behavior is due to his psychotic disorganization than to effects of Ativan; currently. primary goal is to treat catatonia). 2)Discontinued Fluphenazine (for now) out of concern for antipsychotic being contributory to catatonia (also dc'd Depakote out of an abundance of caution) -Pt had told staff he has not had BM; KUB ordered but impression pending...Ordered Mirralx since no laxative ordered. Had nose bleed this morning which resolved on its own 12/16 still catatonic but a little more activity and talking a little more; though one word answers, pt responding appropriately to questions when asks. Says no voices, but later says AH remains. 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 Continue olanzapine 5 mg daily. 12/20 increase olanzapine to 7.5 mg daily 12/21 continue tx 12/22 seems to be responding to olanzapine ? if we could lower ativan a bit 12/23- agrees to inc olanzapine to 10mg, co feels sad and ah, but less catatonic- more engagable flat affect 12/25- Decrease Lorazepam to 2 mg tid, a decrease of 2 mg. 12/26: difficult to engage. +AH; continue current tx plan. 12/28: Anxiety persists- Propranolol 10 mg tid Reason for continued inpatient stay Substantial Risk for: rapid decompensation Time Spent With Patient Time: Total time managing care of this patient today ____ minutes.
[2024-12-28 09:54] VITALS: BP 145/68; PULSE 99; TEMP 37; O2SAT 98
[2024-12-28 20:00] VITALS: BP 128/70; PULSE 118; TEMP 36.8; O2SAT 98
[2024-12-28] MEDS: Propranolol HCL 10 MG TABLET PO (21:08)
[2024-12-28] MEDS: traZODone HCL 50 MG TABLET PO ×2 (21:09→23:24)
[2024-12-29 07:46] VITALS: BP 162/74; PULSE 95; TEMP 36.8; O2SAT 97
[2024-12-29] MEDS: Thiamine HCL 100 MG TABLET 200 MG PO (08:37)
[2024-12-29] MEDS: Benztropine Mesylate 1 MG TABLET PO ×2 (08:37→20:27)
[2024-12-29] MEDS: polyethylene glycoL 3350 17 GM POWD.PACK PO (08:37)
[2024-12-29] MEDS: fluPHENAZine HCl 5 MG TABLET PO ×3 (08:37→20:27)
[2024-12-29] MEDS: LORazepam 1 MG TABLET 2 MG PO ×4 (08:37→20:26)
[2024-12-29] MEDS: Propranolol HCL 10 MG TABLET PO ×3 (08:38→20:27)
[2024-12-29 08:47] VITALS: BP 162/74
[2024-12-29] MEDS: cloNIDine HCL 0.1 MG TABLET PO ×2 (08:47→20:26)
--- NOTE | 2024-12-29 09:39 | P.PNPSI_ITS ---
Subjective Subjective Date of Service: 12/29/24 Reason For Visit: Psychosis Subjective Notes: Conditional Voluntary Interim History: Dario reports some improvement in sx of anxiety. He is awaiting a visit from his family and is pleased they are coming in. Today, he denies sx of concern. 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 Review of Systems Review of Systems Denies Mental Status Exam Mental Status Exam Patient Appearance: Appropriate Patient Orientation: Person, Place, Time and Situation Level of Consciousness: Alert Patient Behavior: Talkative and Good Eye Contact Mood Description: Apprehensive Affect Description: Apprehensive Patient Cognition Impaired: No Ability to Follow Directions: Good Speech Pattern: Spontaneous Speech Memory Description: Intact Hallucinations: Auditory (decreased) Thought Process: Intact and Goal Oriented Thought Content: positive for Intact and positive for Suicidal Ideation (denies) Judgement: Fair Diagnostics Vital Signs (24Hr): Vital Signs - 24 hr 12/28/24 09:54 12/28/24 20:00 12/29/24 07:46 Temperature 98.6 F 98.2 F 98.2 F Pulse Rate 99 118 H 95 Blood Pressure 145/68 H 128/70 162/74 H Pulse Oximetry 98 98 97 Oxygen Delivery Method Room Air Room Air Room Air 12/29/24 08:47 Temperature Pulse Rate Blood Pressure 162/74 H Pulse Oximetry Oxygen Delivery Method BMI result Body Mass Index 40.5 Labs 12/24/24 15:41 12/24/24 15:41 Imaging Radiology Impressions: ITS Impressions KUB X-Ray 12/14/24 16:10 IMPRESSION: No intestinal obstruction pattern. Electronically signed by: Wero Montanez MD 12/17/2024 08:14 AM EDT Medications Medications Current Medications Acetaminophen (Acetaminophen 325 Mg Tablet) 650 mg PO Q6H PRN PRN Reason: Headache/Pain, Scale 1-10 Last Admin: 12/16/24 12:01 Dose: 650 mg Al Hydroxide/Mg Hydroxide (Magnesium Hydrox/Alum Hydrox 30 Ml Oral.Susp) 30 ml PO Q6H PRN PRN Reason: Heartburn/Nausea Benztropine Mesylate (Benztropine Mesylate 1 Mg Tablet) 1 mg PO BID [facility] Last Admin: 12/29/24 08:37 Dose: 1 mg Clonidine HCl (Clonidine Hcl 0.1 Mg Tablet) 0.1 mg PO BID [facility]; Protocol Last Admin: 12/29/24 08:47 Dose: 0.1 mg Fluphenazine HCl (Fluphenazine Hcl 5 Mg Tablet) 5 mg PO TID [facility] Last Admin: 12/29/24 08:37 Dose: 5 mg Hydroxyzine HCl (Hydroxyzine Hcl 25 Mg Tablet) 25 mg PO Q6H PRN PRN Reason: mild anxiety Last Admin: 12/27/24 13:19 Dose: 25 mg Lorazepam (Lorazepam 0.5 Mg Tablet) 0.5 mg PO Q4H PRN PRN Reason: agitation Last Admin: 12/28/24 23:24 Dose: 0.5 mg Lorazepam (Lorazepam 1 Mg Tablet) 2 mg PO QID [facility] Last Admin: 12/29/24 08:37 Dose: 2 mg Magnesium Hydroxide (Milk Of Magnesia 30 Ml Oral.Susp) 30 ml PO DAILY PRN PRN Reason: Constipation Nicotine (Nicotine 21 Mg Patch.Td24) 21 mg TRANSDERMA DAILY PRN PRN Reason: smoking cessation Last Admin: 12/11/24 08:41 Dose: 21 mg Nicotine Polacrilex (Nicotine Polacrilex 2 Mg Gum) 4 mg BUCCAL Q2H PRN PRN Reason: Nicotine Cravings Polyethylene Glycol (Polyethylene Glycol 3350 17 Gm Powd.Pack) 17 gm PO DAILY [facility] Last Admin: 12/29/24 08:37 Dose: 17 gm Polyethylene Glycol (Polyethylene Glycol 3350 17 Gm Powd.Pack) 17 gm PO DAILY PRN PRN Reason: continued Constipation Propranolol HCl (Propranolol Hcl 10 Mg Tablet) 10 mg PO TID [facility]; Protocol Last Admin: 12/29/24 08:38 Dose: 10 mg Thiamine HCl (Thiamine Hcl 100 Mg Tablet) 200 mg PO DAILY [facility] Last Admin: 12/29/24 08:37 Dose: 200 mg Trazodone HCl (Trazodone Hcl 50 Mg Tablet) 50 mg PO BEDTIME MRX1 PRN PRN Reason: Insomnia Last Admin: 12/28/24 23:24 Dose: 50 mg Allergies Allergies Allergy/AdvReac Type Severity Reaction Status Date / Time No Known Allergies Allergy Verified 12/09/24 12:43 Assessment & Plan Assessment & Plan (1) Catatonia: Status: Acute Code(s): F06.1 - Catatonic disorder due to known physiological condition (2) Schizoaffective disorder: Status: Acute Code(s): F25.9 - Schizoaffective disorder, unspecified (3) Cannabis use disorder: Status: Acute Code(s): F12.90 - Cannabis use, unspecified, uncomplicated Plan Admit, CV, One to One-SI, Disinhbition, Acute Psychosis Diagnostics as needed Collateral contact Milieu integration as tolerated Risperdal 2 mg bid Decrease Lorazepam to 0.5 mg q4h prn (pt is disinhibited, exposing himself) Depakote-continue Clonidine-continue Chlorpromazine prn (olanzapine has not been helpful by history) 12/12: DC Risperdal, Chlorpromazine Prolixin 5 bid and tid prn psychosis Increase Lorazapam to 1 mg tid Fe, CPK, CBCD, Myoglobin, EEG, B12,Folate, TSH, Valproate 12/14: KUB Continue current regime 12/15 remains with significant catatonic symptoms 1) Increased to Ativan 2mg QID. With increased dose, patient soon talked a little bit more (Ativan initially lowered out of concern that it was disinhibiting patient who was disrobing, however it seems more likely that this behavior is due to his psychotic disorganization than to effects of Ativan; currently. primary goal is to treat catatonia). 2)Discontinued Fluphenazine (for now) out of concern for antipsychotic being contributory to catatonia (also dc'd Depakote out of an abundance of caution) -Pt had told staff he has not had BM; KUB ordered but impression pending...Ordered Mirralx since no laxative ordered. Had nose bleed this morning which resolved on its own 12/16 still catatonic but a little more activity and talking a little more; though one word answers, pt responding appropriately to questions when asks. Says no voices, but later says AH remains. 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 Continue olanzapine 5 mg daily. 12/20 increase olanzapine to 7.5 mg daily 12/21 continue tx 12/22 seems to be responding to olanzapine ? if we could lower ativan a bit 12/23- agrees to inc olanzapine to 10mg, co feels sad and ah, but less catatonic- more engagable flat affect 12/25- Decrease Lorazepam to 2 mg tid, a decrease of 2 mg. 12/26: difficult to engage. +AH; continue current tx plan. 12/29: continue plan/regime Reason for continued inpatient stay Substantial Risk for: rapid decompensation Time Spent With Patient Time: Total time managing care of this patient today ____ minutes.
[2024-12-29 15:02] VITALS: BP 156/84; PULSE 90
[2024-12-29 20:00] VITALS: BP 147/75; PULSE 116; TEMP 35.8; O2SAT 96
[2024-12-29] MEDS: traZODone HCL 50 MG TABLET PO (20:27)
[2024-12-30 08:00] VITALS: BP 161/82; PULSE 101; TEMP 37.2; O2SAT 97
[2024-12-30] MEDS: Propranolol HCL 10 MG TABLET PO ×3 (08:26→20:31)
[2024-12-30] MEDS: LORazepam 1 MG TABLET 2 MG PO ×3 (08:26→20:33)
[2024-12-30] MEDS: polyethylene glycoL 3350 17 GM POWD.PACK PO (08:26)
[2024-12-30] MEDS: Thiamine HCL 100 MG TABLET 200 MG PO (08:26)
[2024-12-30] MEDS: Benztropine Mesylate 1 MG TABLET PO ×2 (08:26→20:53)
[2024-12-30] MEDS: cloNIDine HCL 0.1 MG TABLET PO ×2 (08:27→20:33)
[2024-12-30] MEDS: fluPHENAZine HCl 5 MG TABLET PO ×3 (08:27→20:32)
--- NOTE | 2024-12-30 08:44 | HO.PSYCHPN ---
Subjective Subjective Date of Service: 12/30/24 Reason For Visit: Psychosis Interim History: Today: Patient intermittently seen on unit. Was agreeable to talk. Reports sleeping last night. Appetite is good. Says he is here for 'psychosis'. Says this is all gone now. Reports doing well with fluphenazine. He says he is hoping to have the medication when he goes home. Denies any AH/VH/SI/HI. Denies any acute issues. Tuesday: Dario reports some improvement in sx of anxiety. He is awaiting a visit from his family and is pleased they are coming in. Today, he denies sx of concern. 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 Review of Systems Review of Systems Denies Yes all other systems are reviewed and are negative and Unobtainable due to mental status Constitutional: Reports as per [facility] Mental Status Exam Mental Status Exam Patient Appearance: Appropriate Patient Orientation: Person, Place, Time and Situation Level of Consciousness: Alert Patient Behavior: Talkative and Good Eye Contact Behavior Comments: poor hygiene Mood Description: Apprehensive Affect Description: Apprehensive Patient Cognition Impaired: No Ability to Follow Directions: Good Speech Pattern: Spontaneous Speech Memory Description: Intact Diagnostics Vital Signs (24Hr): Vital Signs - 24 hr 12/29/24 08:47 12/29/24 15:02 12/29/24 20:00 Temperature 96.5 F L Pulse Rate 90 116 H Blood Pressure 162/74 H 156/84 H 147/75 H Pulse Oximetry 96 Oxygen Delivery Method Room Air 12/30/24 08:00 Temperature 99 F Pulse Rate 101 H Blood Pressure 161/82 H Pulse Oximetry 97 Oxygen Delivery Method Room Air BMI result Body Mass Index 40.5 Labs 12/24/24 15:41 12/24/24 15:41 Imaging Radiology Impressions: ITS Impressions KUB X-Ray 12/14/24 16:10 IMPRESSION: No intestinal obstruction pattern. Electronically signed by: Wero Montanez MD 12/17/2024 08:14 AM EDT Medications Medications Current Medications Acetaminophen (Acetaminophen 325 Mg Tablet) 650 mg PO Q6H PRN PRN Reason: Headache/Pain, Scale 1-10 Last Admin: 12/16/24 12:01 Dose: 650 mg Al Hydroxide/Mg Hydroxide (Magnesium Hydrox/Alum Hydrox 30 Ml Oral.Susp) 30 ml PO Q6H PRN PRN Reason: Heartburn/Nausea Benztropine Mesylate (Benztropine Mesylate 1 Mg Tablet) 1 mg PO BID [facility] Last Admin: 12/30/24 08:26 Dose: 1 mg Clonidine HCl (Clonidine Hcl 0.1 Mg Tablet) 0.1 mg PO BID [facility]; Protocol Last Admin: 12/30/24 08:27 Dose: 0.1 mg Fluphenazine HCl (Fluphenazine Hcl 5 Mg Tablet) 5 mg PO TID [facility] Last Admin: 12/30/24 08:27 Dose: 5 mg Hydroxyzine HCl (Hydroxyzine Hcl 25 Mg Tablet) 25 mg PO Q6H PRN PRN Reason: mild anxiety Last Admin: 12/27/24 13:19 Dose: 25 mg Lorazepam (Lorazepam 0.5 Mg Tablet) 0.5 mg PO Q4H PRN PRN Reason: agitation Last Admin: 12/28/24 23:24 Dose: 0.5 mg Lorazepam (Lorazepam 1 Mg Tablet) 2 mg PO QID [facility] Last Admin: 12/30/24 08:26 Dose: 2 mg Magnesium Hydroxide (Milk Of Magnesia 30 Ml Oral.Susp) 30 ml PO DAILY PRN PRN Reason: Constipation Nicotine (Nicotine 21 Mg Patch.Td24) 21 mg TRANSDERMA DAILY PRN PRN Reason: smoking cessation Last Admin: 12/11/24 08:41 Dose: 21 mg Nicotine Polacrilex (Nicotine Polacrilex 2 Mg Gum) 4 mg BUCCAL Q2H PRN PRN Reason: Nicotine Cravings Polyethylene Glycol (Polyethylene Glycol 3350 17 Gm Powd.Pack) 17 gm PO DAILY [facility] Last Admin: 12/30/24 08:26 Dose: 17 gm Polyethylene Glycol (Polyethylene Glycol 3350 17 Gm Powd.Pack) 17 gm PO DAILY PRN PRN Reason: continued Constipation Propranolol HCl (Propranolol Hcl 10 Mg Tablet) 10 mg PO TID [facility]; Protocol Last Admin: 12/30/24 08:26 Dose: 10 mg Thiamine HCl (Thiamine Hcl 100 Mg Tablet) 200 mg PO DAILY [facility] Last Admin: 12/30/24 08:26 Dose: 200 mg Trazodone HCl (Trazodone Hcl 50 Mg Tablet) 50 mg PO BEDTIME MRX1 PRN PRN Reason: Insomnia Last Admin: 12/29/24 20:27 Dose: 50 mg Allergies Allergies Allergy/AdvReac Type Severity Reaction Status Date / Time No Known Allergies Allergy Verified 12/09/24 12:43 Assessment & Plan Assessment & Plan (1) Catatonia: Status: Acute Code(s): F06.1 - Catatonic disorder due to known physiological condition (2) Schizoaffective disorder: Status: Acute Code(s): F25.9 - Schizoaffective disorder, unspecified (3) Cannabis use disorder: Status: Acute Code(s): F12.90 - Cannabis use, unspecified, uncomplicated Plan Admit, CV, One to One-SI, Disinhbition, Acute Psychosis Diagnostics as needed Collateral contact Milieu integration as tolerated Risperdal 2 mg bid Decrease Lorazepam to 0.5 mg q4h prn (pt is disinhibited, exposing himself) Depakote-continue Clonidine-continue Chlorpromazine prn (olanzapine has not been helpful by history) 12/12: DC Risperdal, Chlorpromazine Prolixin 5 bid and tid prn psychosis Increase Lorazapam to 1 mg tid Fe, CPK, CBCD, Myoglobin, EEG, B12,Folate, TSH, Valproate 12/14: KUB Continue current regime 12/15 remains with significant catatonic symptoms 1) Increased to Ativan 2mg QID. With increased dose, patient soon talked a little bit more (Ativan initially lowered out of concern that it was disinhibiting patient who was disrobing, however it seems more likely that this behavior is due to his psychotic disorganization than to effects of Ativan; currently. primary goal is to treat catatonia). 2)Discontinued Fluphenazine (for now) out of concern for antipsychotic being contributory to catatonia (also dc'd Depakote out of an abundance of caution) -Pt had told staff he has not had BM; KUB ordered but impression pending...Ordered Mirralx since no laxative ordered. Had nose bleed this morning which resolved on its own 12/16 still catatonic but a little more activity and talking a little more; though one word answers, pt responding appropriately to questions when asks. Says no voices, but later says AH remains. 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 Continue olanzapine 5 mg daily. 12/20 increase olanzapine to 7.5 mg daily 12/21 continue tx 12/22 seems to be responding to olanzapine ? if we could lower ativan a bit 12/23- agrees to inc olanzapine to 10mg, co feels sad and ah, but less catatonic- more engagable flat affect 12/25- Decrease Lorazepam to 2 mg tid, a decrease of 2 mg. 12/26: difficult to engage. +AH; continue current tx plan. 12/29: continue plan/regime 12/30: continue plan/regime Reason for continued inpatient stay Substantial Risk for: med/psych decompensation Time Spent With Patient Time: Total time managing care of this patient today ____ minutes.
[2024-12-30 15:00] VITALS: PULSE 96
[2024-12-30 19:28] VITALS: BP 128/75; PULSE 104; TEMP 37.1; O2SAT 98
[2024-12-30] MEDS: traZODone HCL 50 MG TABLET PO (20:33)
[2024-12-31 07:46] VITALS: BP 162/91; PULSE 91; RESP 18; TEMP 36.1; O2SAT 97
[2024-12-31] MEDS: LORazepam 1 MG TABLET 2 MG PO ×3 (08:53→20:08)
[2024-12-31] MEDS: Benztropine Mesylate 1 MG TABLET PO ×2 (08:53→20:09)
[2024-12-31 08:54] VITALS: BP 162/91
[2024-12-31] MEDS: fluPHENAZine HCl 5 MG TABLET PO ×3 (08:54→20:09)
[2024-12-31] MEDS: cloNIDine HCL 0.1 MG TABLET PO ×2 (08:54→20:09)
[2024-12-31 08:55] VITALS: BP 161/91; PULSE 91
[2024-12-31] MEDS: Thiamine HCL 100 MG TABLET 200 MG PO (08:55)
[2024-12-31] MEDS: Propranolol HCL 10 MG TABLET PO ×3 (08:55→20:09)
--- NOTE | 2024-12-31 12:04 | HO.PSYCHPN ---
Subjective Subjective Date of Service: 12/31/24 Reason For Visit: Psychosis Subjective Notes: Conditional Voluntary Healthcare Proxy: No Guardianship: No Medical Problems Affecting Mental Status: No Interim History: I am good. Reports anxiety-5, depression-4, voices-none. mood is sad, sleep is OK , no fear and feeling oversedate at times. Attending some groups, mother visited on Tuesday, pt will meet with team and [facility] on 01.01 and family meeting on 01/02 to plan discharge. Medication Compliance: Yes Side effects from medications: Yes (sedation reported) Attending Groups: Intermittent Review of Systems Review of Systems Denies Mental Status Exam Mental Status Exam Patient Appearance: Appropriate Patient Orientation: Person, Place, Time and Situation Level of Consciousness: Alert Patient Behavior: Talkative and Good Eye Contact Mood Description: Apprehensive Affect Description: Apprehensive Patient Cognition Impaired: No Ability to Follow Directions: Good Speech Pattern: Spontaneous Speech Memory Description: Intact Diagnostics Vital Signs (24Hr): Vital Signs - 24 hr 12/30/24 15:00 12/30/24 19:28 12/31/24 07:46 Temperature 98.8 F 97 F Pulse Rate 96 104 H 91 Respiratory Rate 18 Blood Pressure 128/75 162/91 H Pulse Oximetry 98 97 Oxygen Delivery Method Room Air Room Air 12/31/24 08:54 12/31/24 08:55 Temperature Pulse Rate 91 Respiratory Rate Blood Pressure 162/91 H 161/91 H Pulse Oximetry Oxygen Delivery Method BMI result Body Mass Index 40.5 Labs 12/24/24 15:41 12/24/24 15:41 Imaging Radiology Impressions: ITS Impressions KUB X-Ray 12/14/24 16:10 IMPRESSION: No intestinal obstruction pattern. Electronically signed by: Wero Montanez MD 12/17/2024 08:14 AM EDT Medications Medications Current Medications Acetaminophen (Acetaminophen 325 Mg Tablet) 650 mg PO Q6H PRN PRN Reason: Headache/Pain, Scale 1-10 Last Admin: 12/16/24 12:01 Dose: 650 mg Al Hydroxide/Mg Hydroxide (Magnesium Hydrox/Alum Hydrox 30 Ml Oral.Susp) 30 ml PO Q6H PRN PRN Reason: Heartburn/Nausea Benztropine Mesylate (Benztropine Mesylate 1 Mg Tablet) 1 mg PO BID [facility] Last Admin: 12/31/24 08:53 Dose: 1 mg Clonidine HCl (Clonidine Hcl 0.1 Mg Tablet) 0.1 mg PO BID [facility]; Protocol Last Admin: 12/31/24 08:54 Dose: 0.1 mg Fluphenazine HCl (Fluphenazine Hcl 5 Mg Tablet) 5 mg PO TID [facility] Last Admin: 12/31/24 08:54 Dose: 5 mg Hydroxyzine HCl (Hydroxyzine Hcl 25 Mg Tablet) 25 mg PO Q6H PRN PRN Reason: mild anxiety Last Admin: 12/27/24 13:19 Dose: 25 mg Lorazepam (Lorazepam 0.5 Mg Tablet) 0.5 mg PO Q4H PRN PRN Reason: agitation Last Admin: 12/28/24 23:24 Dose: 0.5 mg Lorazepam (Lorazepam 1 Mg Tablet) 2 mg PO TID [facility] Magnesium Hydroxide (Milk Of Magnesia 30 Ml Oral.Susp) 30 ml PO DAILY PRN PRN Reason: Constipation Nicotine (Nicotine 21 Mg Patch.Td24) 21 mg TRANSDERMA DAILY PRN PRN Reason: smoking cessation Last Admin: 12/11/24 08:41 Dose: 21 mg Nicotine Polacrilex (Nicotine Polacrilex 2 Mg Gum) 4 mg BUCCAL Q2H PRN PRN Reason: Nicotine Cravings Polyethylene Glycol (Polyethylene Glycol 3350 17 Gm Powd.Pack) 17 gm PO DAILY [facility] Last Admin: 12/31/24 08:56 Dose: Not Given Polyethylene Glycol (Polyethylene Glycol 3350 17 Gm Powd.Pack) 17 gm PO DAILY PRN PRN Reason: continued Constipation Propranolol HCl (Propranolol Hcl 10 Mg Tablet) 10 mg PO TID [facility]; Protocol Last Admin: 12/31/24 08:55 Dose: 10 mg Thiamine HCl (Thiamine Hcl 100 Mg Tablet) 200 mg PO DAILY [facility] Last Admin: 12/31/24 08:55 Dose: 200 mg Trazodone HCl (Trazodone Hcl 50 Mg Tablet) 50 mg PO BEDTIME MRX1 PRN PRN Reason: Insomnia Last Admin: 12/30/24 20:33 Dose: 50 mg Allergies Allergies Allergy/AdvReac Type Severity Reaction Status Date / Time No Known Allergies Allergy Verified 12/09/24 12:43 Assessment & Plan Assessment & Plan (1) Catatonia: Status: Acute Code(s): F06.1 - Catatonic disorder due to known physiological condition (2) Schizoaffective disorder: Status: Acute Code(s): F25.9 - Schizoaffective disorder, unspecified (3) Cannabis use disorder: Status: Acute Code(s): F12.90 - Cannabis use, unspecified, uncomplicated Plan Admit, CV, One to One-SI, Disinhbition, Acute Psychosis Diagnostics as needed Collateral contact Milieu integration as tolerated Risperdal 2 mg bid Decrease Lorazepam to 0.5 mg q4h prn (pt is disinhibited, exposing himself) Depakote-continue Clonidine-continue Chlorpromazine prn (olanzapine has not been helpful by history) 12/12: DC Risperdal, Chlorpromazine Prolixin 5 bid and tid prn psychosis Increase Lorazapam to 1 mg tid Fe, CPK, CBCD, Myoglobin, EEG, B12,Folate, TSH, Valproate 12/14: KUB Continue current regime 12/15 remains with significant catatonic symptoms 1) Increased to Ativan 2mg QID. With increased dose, patient soon talked a little bit more (Ativan initially lowered out of concern that it was disinhibiting patient who was disrobing, however it seems more likely that this behavior is due to his psychotic disorganization than to effects of Ativan; currently. primary goal is to treat catatonia). 2)Discontinued Fluphenazine (for now) out of concern for antipsychotic being contributory to catatonia (also dc'd Depakote out of an abundance of caution) -Pt had told staff he has not had BM; KUB ordered but impression pending...Ordered Mirralx since no laxative ordered. Had nose bleed this morning which resolved on its own 12/16 still catatonic but a little more activity and talking a little more; though one word answers, pt responding appropriately to questions when asks. Says no voices, but later says AH remains. 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 Continue olanzapine 5 mg daily. 12/20 increase olanzapine to 7.5 mg daily 12/21 continue tx 12/22 seems to be responding to olanzapine ? if we could lower ativan a bit 12/23- agrees to inc olanzapine to 10mg, co feels sad and ah, but less catatonic- more engagable flat affect 12/25- Decrease Lorazepam to 2 mg tid, a decrease of 2 mg. 12/26: difficult to engage. +AH; continue current tx plan. 12/29: continue plan/regime 12/30: continue plan/regime 12/31: Decrease Lorazepam to tid due to pt reports of sedation. Reason for continued inpatient stay Substantial Risk for: rapid decompensation Time Spent With Patient Time: Total time managing care of this patient today ____ minutes.
[2024-12-31 14:34] VITALS: BP 137/73; PULSE 116
[2024-12-31 20:00] VITALS: BP 133/72; PULSE 90; RESP 16; TEMP 36.5; O2SAT 97
[2024-12-31] MEDS: traZODone HCL 50 MG TABLET PO ×2 (20:09→22:12)
[2024-12-31] MEDS: LORazepam 0.5 MG TABLET PO (22:17)
[2024-12-31] MEDS: hydrOXYzine HCL 25 MG TABLET PO (22:17)
[2025-01-01 07:54] VITALS: BP 151/67; PULSE 92; RESP 18; TEMP 36.9; O2SAT 96
[2025-01-01] MEDS: fluPHENAZine HCl 5 MG TABLET PO ×3 (08:17→20:39)
[2025-01-01] MEDS: LORazepam 1 MG TABLET 2 MG PO ×3 (08:17→20:39)
[2025-01-01] MEDS: Thiamine HCL 100 MG TABLET 200 MG PO (08:17)
[2025-01-01] MEDS: Propranolol HCL 10 MG TABLET PO ×3 (08:17→20:39)
[2025-01-01] MEDS: Benztropine Mesylate 1 MG TABLET PO ×2 (08:17→20:40)
[2025-01-01] MEDS: cloNIDine HCL 0.1 MG TABLET PO ×2 (08:17→20:40)
[2025-01-01 15:09] VITALS: BP 142/78
--- NOTE | 2025-01-01 16:21 | P.PNPSI_ITS ---
Subjective Subjective Date of Service: 01/01/25 Reason For Visit: Psychosis Subjective Notes: Conditional Voluntary Healthcare Proxy: No Guardianship: No Medical Problems Affecting Mental Status: No Interim History: Visable in the milieu. Reports improvement in sx. Denies SI,HI,AH,VH-Able to talk with tw in Croatian today without difficulty. Tolerating decrease in Lorazepam. Medication Compliance: Yes Side effects from medications: Yes (sedation is decreased today per pt report) Attending Groups: Intermittent Review of Systems Acute medical concerns: No Review of Systems Review of Systems Denies Mental Status Exam Mental Status Exam Patient Appearance: Appropriate Patient Orientation: Person, Place, Time and Situation Level of Consciousness: Alert Patient Behavior: Talkative and Good Eye Contact Mood Description: Apprehensive Affect Description: Apprehensive Patient Cognition Impaired: No Ability to Follow Directions: Good Speech Pattern: Spontaneous Speech Memory Description: Intact Hallucinations: None (denies) Diagnostics Vital Signs (24Hr): Vital Signs - 24 hr 12/31/24 20:00 01/01/25 07:54 01/01/25 15:09 Temperature 97.7 F 98.4 F Pulse Rate 90 92 Respiratory Rate 16 18 Blood Pressure 133/72 151/67 H 142/78 H Pulse Oximetry 97 96 Oxygen Delivery Method Room Air Room Air BMI result Body Mass Index 40.5 Labs 12/24/24 15:41 12/24/24 15:41 Imaging Radiology Impressions: ITS Impressions KUB X-Ray 12/14/24 16:10 IMPRESSION: No intestinal obstruction pattern. Electronically signed by: Wero Montanez MD 12/17/2024 08:14 AM EDT Medications Medications Current Medications Acetaminophen (Acetaminophen 325 Mg Tablet) 650 mg PO Q6H PRN PRN Reason: Headache/Pain, Scale 1-10 Last Admin: 12/16/24 12:01 Dose: 650 mg Al Hydroxide/Mg Hydroxide (Magnesium Hydrox/Alum Hydrox 30 Ml Oral.Susp) 30 ml PO Q6H PRN PRN Reason: Heartburn/Nausea Benztropine Mesylate (Benztropine Mesylate 1 Mg Tablet) 1 mg PO BID [facility] Last Admin: 01/01/25 08:17 Dose: 1 mg Clonidine HCl (Clonidine Hcl 0.1 Mg Tablet) 0.1 mg PO BID [facility]; Protocol Last Admin: 01/01/25 08:17 Dose: 0.1 mg Fluphenazine HCl (Fluphenazine Hcl 5 Mg Tablet) 5 mg PO TID [facility] Last Admin: 01/01/25 15:09 Dose: 5 mg Hydroxyzine HCl (Hydroxyzine Hcl 25 Mg Tablet) 25 mg PO Q6H PRN PRN Reason: mild anxiety Last Admin: 12/31/24 22:17 Dose: 25 mg Lorazepam (Lorazepam 0.5 Mg Tablet) 0.5 mg PO Q4H PRN PRN Reason: agitation Last Admin: 12/31/24 22:17 Dose: 0.5 mg Lorazepam (Lorazepam 1 Mg Tablet) 2 mg PO TID [facility] Last Admin: 01/01/25 15:09 Dose: 2 mg Magnesium Hydroxide (Milk Of Magnesia 30 Ml Oral.Susp) 30 ml PO DAILY PRN PRN Reason: Constipation Nicotine (Nicotine 21 Mg Patch.Td24) 21 mg TRANSDERMA DAILY PRN PRN Reason: smoking cessation Last Admin: 12/11/24 08:41 Dose: 21 mg Nicotine Polacrilex (Nicotine Polacrilex 2 Mg Gum) 4 mg BUCCAL Q2H PRN PRN Reason: Nicotine Cravings Polyethylene Glycol (Polyethylene Glycol 3350 17 Gm Powd.Pack) 17 gm PO DAILY [facility] Last Admin: 01/01/25 08:21 Dose: Not Given Polyethylene Glycol (Polyethylene Glycol 3350 17 Gm Powd.Pack) 17 gm PO DAILY PRN PRN Reason: continued Constipation Propranolol HCl (Propranolol Hcl 10 Mg Tablet) 10 mg PO TID [facility]; Protocol Last Admin: 01/01/25 15:09 Dose: 10 mg Thiamine HCl (Thiamine Hcl 100 Mg Tablet) 200 mg PO DAILY [facility] Last Admin: 01/01/25 08:17 Dose: 200 mg Trazodone HCl (Trazodone Hcl 50 Mg Tablet) 50 mg PO BEDTIME MRX1 PRN PRN Reason: Insomnia Last Admin: 12/31/24 22:12 Dose: 50 mg Allergies Allergies Allergy/AdvReac Type Severity Reaction Status Date / Time No Known Allergies Allergy Verified 12/09/24 12:43 Assessment & Plan Assessment & Plan (1) Catatonia: Status: Acute Code(s): F06.1 - Catatonic disorder due to known physiological condition (2) Schizoaffective disorder: Status: Acute Code(s): F25.9 - Schizoaffective disorder, unspecified (3) Cannabis use disorder: Status: Acute Code(s): F12.90 - Cannabis use, unspecified, uncomplicated Plan Admit, CV, One to One-SI, Disinhbition, Acute Psychosis Diagnostics as needed Collateral contact Milieu integration as tolerated Risperdal 2 mg bid Decrease Lorazepam to 0.5 mg q4h prn (pt is disinhibited, exposing himself) Depakote-continue Clonidine-continue Chlorpromazine prn (olanzapine has not been helpful by history) 12/12: DC Risperdal, Chlorpromazine Prolixin 5 bid and tid prn psychosis Increase Lorazapam to 1 mg tid Fe, CPK, CBCD, Myoglobin, EEG, B12,Folate, TSH, Valproate 12/14: KUB Continue current regime 12/15 remains with significant catatonic symptoms 1) Increased to Ativan 2mg QID. With increased dose, patient soon talked a little bit more (Ativan initially lowered out of concern that it was disinhibiting patient who was disrobing, however it seems more likely that this behavior is due to his psychotic disorganization than to effects of Ativan; currently. primary goal is to treat catatonia). 2)Discontinued Fluphenazine (for now) out of concern for antipsychotic being contributory to catatonia (also dc'd Depakote out of an abundance of caution) -Pt had told staff he has not had BM; KUB ordered but impression pending...Ordered Mirralx since no laxative ordered. Had nose bleed this morning which resolved on its own 12/16 still catatonic but a little more activity and talking a little more; though one word answers, pt responding appropriately to questions when asks. Says no voices, but later says AH remains. 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 Continue olanzapine 5 mg daily. 12/20 increase olanzapine to 7.5 mg daily 12/21 continue tx 12/22 seems to be responding to olanzapine ? if we could lower ativan a bit 12/23- agrees to inc olanzapine to 10mg, co feels sad and ah, but less catatonic- more engagable flat affect 12/25- Decrease Lorazepam to 2 mg tid, a decrease of 2 mg. 12/26: difficult to engage. +AH; continue current tx plan. 12/29: continue plan/regime 12/30: continue plan/regime 01/01/25: continue plan/regime Reason for continued inpatient stay Substantial Risk for: rapid decompensation Time Spent With Patient Time: Total time managing care of this patient today ____ minutes.
[2025-01-01] MEDS: hydrOXYzine HCL 25 MG TABLET PO (18:28)
[2025-01-01 19:45] VITALS: BP 162/74; PULSE 110; TEMP 36.7; O2SAT 96
[2025-01-01] MEDS: LORazepam 0.5 MG TABLET PO (20:39)
[2025-01-01] MEDS: traZODone HCL 50 MG TABLET PO (20:40)
[2025-01-02] MEDS: LORazepam 1 MG TABLET 2 MG PO ×2 (08:33→20:30)
[2025-01-02] MEDS: Thiamine HCL 100 MG TABLET 200 MG PO (08:33)
[2025-01-02] MEDS: polyethylene glycoL 3350 17 GM POWD.PACK PO (08:33)
[2025-01-02 08:34] VITALS: BP 145/94; PULSE 88
[2025-01-02] MEDS: Benztropine Mesylate 1 MG TABLET PO ×2 (08:34→20:31)
[2025-01-02] MEDS: fluPHENAZine HCl 5 MG TABLET PO ×3 (08:34→20:31)
[2025-01-02] MEDS: Propranolol HCL 10 MG TABLET PO ×3 (08:34→20:31)
[2025-01-02] MEDS: cloNIDine HCL 0.1 MG TABLET PO ×2 (08:34→20:30)
[2025-01-02 08:57] VITALS: BP 145/94; PULSE 88; TEMP 37.1; O2SAT 97
--- NOTE | 2025-01-02 09:34 | P.PNPSI_ITS ---
Subjective Subjective Date of Service: 01/02/25 Reason For Visit: Psychosis Subjective Notes: Conditional Voluntary Healthcare Proxy: No Guardianship: No Medical Problems Affecting Mental Status: No Interim History: Reports feeling sedate. Will attempt another dosage reduction of Lorazepam. Reports meeting with [facility] for needs/means eval went well and they have services he could benefit from-final decision regarding acceptance is expected next week. Discussed family meeting with team-planned for 01/07 with potential DC next week Medication Compliance: Yes Side effects from medications: No Attending Groups: Intermittent Review of Systems Acute medical concerns: No Review of Systems Review of Systems Denies Mental Status Exam Mental Status Exam Patient Appearance: Appropriate Patient Orientation: Person, Place, Time and Situation Level of Consciousness: Alert Patient Behavior: Talkative and Good Eye Contact Mood Description: Apprehensive Affect Description: Apprehensive Patient Cognition Impaired: No Ability to Follow Directions: Good Speech Pattern: Spontaneous Speech Memory Description: Intact Hallucinations: None (denies) Diagnostics Vital Signs (24Hr): Vital Signs - 24 hr 01/01/25 15:09 01/01/25 19:45 01/02/25 08:34 Temperature 98.0 F Pulse Rate 110 H 88 Blood Pressure 142/78 H 162/74 H 145/94 H Pulse Oximetry 96 Oxygen Delivery Method Room Air 01/02/25 08:34 01/02/25 08:57 Temperature 98.7 F Pulse Rate 88 Blood Pressure 145/94 H 145/94 H Pulse Oximetry 97 Oxygen Delivery Method Room Air BMI result Body Mass Index 40.5 Labs 12/24/24 15:41 12/24/24 15:41 Imaging Radiology Impressions: ITS Impressions KUB X-Ray 12/14/24 16:10 IMPRESSION: No intestinal obstruction pattern. Electronically signed by: Wero Montanez MD 12/17/2024 08:14 AM EDT Medications Medications Current Medications Acetaminophen (Acetaminophen 325 Mg Tablet) 650 mg PO Q6H PRN PRN Reason: Headache/Pain, Scale 1-10 Last Admin: 12/16/24 12:01 Dose: 650 mg Al Hydroxide/Mg Hydroxide (Magnesium Hydrox/Alum Hydrox 30 Ml Oral.Susp) 30 ml PO Q6H PRN PRN Reason: Heartburn/Nausea Benztropine Mesylate (Benztropine Mesylate 1 Mg Tablet) 1 mg PO BID UZMA Last Admin: 01/02/25 08:34 Dose: 1 mg Clonidine HCl (Clonidine Hcl 0.1 Mg Tablet) 0.1 mg PO BID [facility]; Protocol Last Admin: 01/02/25 08:34 Dose: 0.1 mg Fluphenazine HCl (Fluphenazine Hcl 5 Mg Tablet) 5 mg PO TID [facility] Last Admin: 01/02/25 08:34 Dose: 5 mg Hydroxyzine HCl (Hydroxyzine Hcl 25 Mg Tablet) 25 mg PO Q6H PRN PRN Reason: mild anxiety Last Admin: 01/01/25 18:28 Dose: 25 mg Lorazepam (Lorazepam 0.5 Mg Tablet) 0.5 mg PO Q4H PRN PRN Reason: agitation Last Admin: 01/01/25 20:39 Dose: 0.5 mg Lorazepam (Lorazepam 1 Mg Tablet) 2 mg PO TID [facility] Last Admin: 01/02/25 08:33 Dose: 2 mg Magnesium Hydroxide (Milk Of Magnesia 30 Ml Oral.Susp) 30 ml PO DAILY PRN PRN Reason: Constipation Nicotine (Nicotine 21 Mg Patch.Td24) 21 mg TRANSDERMA DAILY PRN PRN Reason: smoking cessation Last Admin: 12/11/24 08:41 Dose: 21 mg Nicotine Polacrilex (Nicotine Polacrilex 2 Mg Gum) 4 mg BUCCAL Q2H PRN PRN Reason: Nicotine Cravings Polyethylene Glycol (Polyethylene Glycol 3350 17 Gm Powd.Pack) 17 gm PO DAILY [facility] Last Admin: 01/02/25 08:33 Dose: 17 gm Polyethylene Glycol (Polyethylene Glycol 3350 17 Gm Powd.Pack) 17 gm PO DAILY PRN PRN Reason: continued Constipation Propranolol HCl (Propranolol Hcl 10 Mg Tablet) 10 mg PO TID [facility]; Protocol Last Admin: 01/02/25 08:34 Dose: 10 mg Thiamine HCl (Thiamine Hcl 100 Mg Tablet) 200 mg PO DAILY [facility] Last Admin: 01/02/25 08:33 Dose: 200 mg Trazodone HCl (Trazodone Hcl 50 Mg Tablet) 50 mg PO BEDTIME MRX1 PRN PRN Reason: Insomnia Last Admin: 01/01/25 20:40 Dose: 50 mg Allergies Allergies Allergy/AdvReac Type Severity Reaction Status Date / Time No Known Allergies Allergy Verified 12/09/24 12:43 Assessment & Plan Assessment & Plan (1) Catatonia: Status: Acute Code(s): F06.1 - Catatonic disorder due to known physiological condition (2) Schizoaffective disorder: Status: Acute Code(s): F25.9 - Schizoaffective disorder, unspecified (3) Cannabis use disorder: Status: Acute Code(s): F12.90 - Cannabis use, unspecified, uncomplicated Plan Admit, CV, One to One-SI, Disinhbition, Acute Psychosis Diagnostics as needed Collateral contact Milieu integration as tolerated Risperdal 2 mg bid Decrease Lorazepam to 0.5 mg q4h prn (pt is disinhibited, exposing himself) Depakote-continue Clonidine-continue Chlorpromazine prn (olanzapine has not been helpful by history) 12/12: DC Risperdal, Chlorpromazine Prolixin 5 bid and tid prn psychosis Increase Lorazapam to 1 mg tid Fe, CPK, CBCD, Myoglobin, EEG, B12,Folate, TSH, Valproate 12/14: KUB Continue current regime 12/15 remains with significant catatonic symptoms 1) Increased to Ativan 2mg QID. With increased dose, patient soon talked a little bit more (Ativan initially lowered out of concern that it was disinhibiting patient who was disrobing, however it seems more likely that this behavior is due to his psychotic disorganization than to effects of Ativan; currently. primary goal is to treat catatonia). 2)Discontinued Fluphenazine (for now) out of concern for antipsychotic being contributory to catatonia (also dc'd Depakote out of an abundance of caution) -Pt had told staff he has not had BM; KUB ordered but impression pending...Ordered Mirralx since no laxative ordered. Had nose bleed this morning which resolved on its own 12/16 still catatonic but a little more activity and talking a little more; though one word answers, pt responding appropriately to questions when asks. Says no voices, but later says AH remains. 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 Continue olanzapine 5 mg daily. 12/20 increase olanzapine to 7.5 mg daily 12/21 continue tx 12/22 seems to be responding to olanzapine ? if we could lower ativan a bit 12/23- agrees to inc olanzapine to 10mg, co feels sad and ah, but less catatonic- more engagable flat affect 12/25- Decrease Lorazepam to 2 mg tid, a decrease of 2 mg. 12/26: difficult to engage. +AH; continue current tx plan. 12/29: continue plan/regime 12/30: continue plan/regime 12/31: Decrease Lorazepam to tid due to pt reports of sedation. 01/02: Decrease Lorazepam to bid due to pt reports of sedation. Reason for continued inpatient stay Substantial Risk for: rapid decompensation Time Spent With Patient Time: Total time managing care of this patient today ____ minutes.
[2025-01-02 14:40] VITALS: PULSE 88
[2025-01-02 19:35] VITALS: BP 149/76; PULSE 108; TEMP 36.3
[2025-01-02] MEDS: traZODone HCL 50 MG TABLET PO (20:30)
[2025-01-03] VITALS (8 sets, daily range): BP systolic 105–166; BP diastolic 64–92; PULSE 97–114; RESP 16; TEMP 36.3–36.9; O2SAT 96–97; BMI 41.4
[2025-01-03] MEDS: LORazepam 1 MG TABLET 2 MG PO ×2 (09:11→21:25)
[2025-01-03] MEDS: polyethylene glycoL 3350 17 GM POWD.PACK PO (09:11)
[2025-01-03] MEDS: fluPHENAZine HCl 5 MG TABLET PO ×3 (09:12→21:26)
[2025-01-03] MEDS: Propranolol HCL 10 MG TABLET PO ×2 (09:12→15:02)
[2025-01-03] MEDS: Thiamine HCL 100 MG TABLET 200 MG PO (09:12)
[2025-01-03] MEDS: cloNIDine HCL 0.1 MG TABLET PO ×2 (09:13→21:25)
[2025-01-03] MEDS: Benztropine Mesylate 1 MG TABLET PO ×2 (09:13→21:26)
--- NOTE | 2025-01-03 09:51 | HO.PSYCHPN ---
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 He reports he is well. Continues with anxiety sx. Preparing to work toward discharge next week. Family meeting 01/07. Denies SI,HI,AH, VH. No sx of acute psychosis/regla Tolerating decrease of Lorazepam well. Medication Compliance: Yes Side effects from medications: No Attending Groups: Intermittent Review of Systems Acute medical concerns: No Medical Review of Systems: unchanged Review of Systems Review of Systems Denies Mental Status Exam Mental Status Exam Patient Appearance: Appropriate Patient Orientation: Person, Place, Time and Situation Level of Consciousness: Alert Patient Behavior: Talkative and Good Eye Contact Mood Description: Apprehensive Affect Description: Apprehensive Patient Cognition Impaired: No Ability to Follow Directions: Good Speech Pattern: Spontaneous Speech Memory Description: Intact Hallucinations: None (denies) Diagnostics Vital Signs (24Hr): Vital Signs - 24 hr 01/02/25 14:40 01/02/25 19:35 01/03/25 07:54 Temperature 97.4 F 98.5 F Pulse Rate 88 108 H 106 H Blood Pressure 149/76 H 155/92 H Pulse Oximetry 97 Oxygen Delivery Method Room Air 01/03/25 09:12 01/03/25 09:13 Temperature Pulse Rate 106 H Blood Pressure 105/92 H 155/92 H Pulse Oximetry Oxygen Delivery Method BMI result Body Mass Index 40.5 Labs 12/24/24 15:41 12/24/24 15:41 Imaging Radiology Impressions: ITS Impressions KUB X-Ray 12/14/24 16:10 IMPRESSION: No intestinal obstruction pattern. Electronically signed by: Wero Montanez MD 12/17/2024 08:14 AM EDT Medications Medications Current Medications Acetaminophen (Acetaminophen 325 Mg Tablet) 650 mg PO Q6H PRN PRN Reason: Headache/Pain, Scale 1-10 Last Admin: 12/16/24 12:01 Dose: 650 mg Al Hydroxide/Mg Hydroxide (Magnesium Hydrox/Alum Hydrox 30 Ml Oral.Susp) 30 ml PO Q6H PRN PRN Reason: Heartburn/Nausea Benztropine Mesylate (Benztropine Mesylate 1 Mg Tablet) 1 mg PO BID [facility]MA Last Admin: 01/03/25 09:13 Dose: 1 mg Clonidine HCl (Clonidine Hcl 0.1 Mg Tablet) 0.1 mg PO BID [facility]; Protocol Last Admin: 01/03/25 09:13 Dose: 0.1 mg Fluphenazine HCl (Fluphenazine Hcl 5 Mg Tablet) 5 mg PO TID [facility] Last Admin: 01/03/25 09:12 Dose: 5 mg Hydroxyzine HCl (Hydroxyzine Hcl 25 Mg Tablet) 25 mg PO Q6H PRN PRN Reason: mild anxiety Last Admin: 01/01/25 18:28 Dose: 25 mg Lorazepam (Lorazepam 0.5 Mg Tablet) 0.5 mg PO Q4H PRN PRN Reason: agitation Last Admin: 01/01/25 20:39 Dose: 0.5 mg Lorazepam (Lorazepam 1 Mg Tablet) 2 mg PO BID [facility] Last Admin: 01/03/25 09:11 Dose: 2 mg Magnesium Hydroxide (Milk Of Magnesia 30 Ml Oral.Susp) 30 ml PO DAILY PRN PRN Reason: Constipation Nicotine (Nicotine 21 Mg Patch.Td24) 21 mg TRANSDERMA DAILY PRN PRN Reason: smoking cessation Last Admin: 12/11/24 08:41 Dose: 21 mg Nicotine Polacrilex (Nicotine Polacrilex 2 Mg Gum) 4 mg BUCCAL Q2H PRN PRN Reason: Nicotine Cravings Polyethylene Glycol (Polyethylene Glycol 3350 17 Gm Powd.Pack) 17 gm PO DAILY [facility] Last Admin: 01/03/25 09:11 Dose: 17 gm Polyethylene Glycol (Polyethylene Glycol 3350 17 Gm Powd.Pack) 17 gm PO DAILY PRN PRN Reason: continued Constipation Propranolol HCl (Propranolol Hcl 10 Mg Tablet) 10 mg PO TID [facility]; Protocol Last Admin: 01/03/25 09:12 Dose: 10 mg Thiamine HCl (Thiamine Hcl 100 Mg Tablet) 200 mg PO DAILY [facility] Last Admin: 01/03/25 09:12 Dose: 200 mg Trazodone HCl (Trazodone Hcl 50 Mg Tablet) 50 mg PO BEDTIME MRX1 PRN PRN Reason: Insomnia Last Admin: 01/02/25 20:30 Dose: 50 mg Allergies Allergies Allergy/AdvReac Type Severity Reaction Status Date / Time No Known Allergies Allergy Verified 12/09/24 12:43 Assessment & Plan Assessment & Plan (1) Catatonia: Status: Acute Code(s): F06.1 - Catatonic disorder due to known physiological condition (2) Schizoaffective disorder: Status: Acute Code(s): F25.9 - Schizoaffective disorder, unspecified (3) Cannabis use disorder: Status: Acute Code(s): F12.90 - Cannabis use, unspecified, uncomplicated Plan Admit, CV, One to One-SI, Disinhbition, Acute Psychosis Diagnostics as needed Collateral contact Milieu integration as tolerated Risperdal 2 mg bid Decrease Lorazepam to 0.5 mg q4h prn (pt is disinhibited, exposing himself) Depakote-continue Clonidine-continue Chlorpromazine prn (olanzapine has not been helpful by history) 12/12: DC Risperdal, Chlorpromazine Prolixin 5 bid and tid prn psychosis Increase Lorazapam to 1 mg tid Fe, CPK, CBCD, Myoglobin, EEG, B12,Folate, TSH, Valproate 12/14: KUB Continue current regime 12/15 remains with significant catatonic symptoms 1) Increased to Ativan 2mg QID. With increased dose, patient soon talked a little bit more (Ativan initially lowered out of concern that it was disinhibiting patient who was disrobing, however it seems more likely that this behavior is due to his psychotic disorganization than to effects of Ativan; currently. primary goal is to treat catatonia). 2)Discontinued Fluphenazine (for now) out of concern for antipsychotic being contributory to catatonia (also dc'd Depakote out of an abundance of caution) -Pt had told staff he has not had BM; KUB ordered but impression pending...Ordered Mirralx since no laxative ordered. Had nose bleed this morning which resolved on its own 12/16 still catatonic but a little more activity and talking a little more; though one word answers, pt responding appropriately to questions when asks. Says no voices, but later says AH remains. 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 Continue olanzapine 5 mg daily. 12/20 increase olanzapine to 7.5 mg daily 12/21 continue tx 12/22 seems to be responding to olanzapine ? if we could lower ativan a bit 12/23- agrees to inc olanzapine to 10mg, co feels sad and ah, but less catatonic- more engagable flat affect 12/25- Decrease Lorazepam to 2 mg tid, a decrease of 2 mg. 12/26: difficult to engage. +AH; continue current tx plan. 12/29: continue plan/regime 12/30: continue plan/regime 12/31: Decrease Lorazepam to tid due to pt reports of sedation. 01/02: Decrease Lorazepam to bid due to pt reports of sedation. 01/03: Increase Propranolol to 15 mg tid-anxiety, HTN sx. Family mtg 01/07. Reason for continued inpatient stay Substantial Risk for: rapid decompensation Time Spent With Patient Time: Total time managing care of this patient today ____ minutes.
[2025-01-03] MEDS: LORazepam 0.5 MG TABLET PO (13:15)
[2025-01-03] MEDS: traZODone HCL 50 MG TABLET PO (21:26)
[2025-01-03] MEDS: Propranolol HCL 10 MG TABLET 15 MG PO (22:40)
[2025-01-04 08:00] VITALS: BP 105/58; PULSE 85; TEMP 36.7; O2SAT 97
[2025-01-04] MEDS: LORazepam 1 MG TABLET 2 MG PO ×2 (08:29→20:10)
[2025-01-04] MEDS: Propranolol HCL 10 MG TABLET 15 MG PO ×3 (08:29→20:10)
[2025-01-04] MEDS: fluPHENAZine HCl 5 MG TABLET PO ×3 (08:30→20:10)
[2025-01-04] MEDS: Thiamine HCL 100 MG TABLET 200 MG PO (08:31)
[2025-01-04] MEDS: cloNIDine HCL 0.1 MG TABLET PO ×2 (08:31→20:11)
[2025-01-04] MEDS: Benztropine Mesylate 1 MG TABLET PO ×2 (08:31→22:15)
--- NOTE | 2025-01-04 10:05 | HO.PSYCHPN ---
Subjective Subjective Date of Service: 01/04/25 Reason For Visit: Psychosis Subjective Notes: Conditional Voluntary Healthcare Proxy: No Guardianship: No Medical Problems Affecting Mental Status: No Interim History: Met with pt, team, [facility] [place]. Pt reports he is doing well. Anxiety is still present-we just titrated Propranolol and will keep this at current dose. Denies AH,VH,SI,HI [employer] family meeting on Tuesday, DMH pending decision on Tuesday and DC for Tuesday. Medication Compliance: Yes Side effects from medications: No Attending Groups: Yes Review of Systems Acute medical concerns: No Review of Systems Review of Systems Denies Mental Status Exam Mental Status Exam Patient Appearance: Appropriate Patient Orientation: Person, Place, Time and Situation Level of Consciousness: Alert Patient Behavior: Talkative and Good Eye Contact Mood Description: Apprehensive Affect Description: Apprehensive Patient Cognition Impaired: No Ability to Follow Directions: Good Speech Pattern: Spontaneous Speech Memory Description: Intact Hallucinations: None (denies) Diagnostics Vital Signs (24Hr): Vital Signs - 24 hr 01/03/25 11:05 01/03/25 15:02 01/03/25 20:00 Temperature 97.4 F 97.5 F Pulse Rate 114 H 110 H 97 Respiratory Rate 16 Blood Pressure 150/77 H 150/80 H 166/69 H Pulse Oximetry 97 96 Oxygen Delivery Method Room Air Room Air 01/03/25 21:25 01/03/25 22:40 01/04/25 08:00 Temperature 98.1 F Pulse Rate 101 H 85 Respiratory Rate Blood Pressure 166/64 H 115/79 105/58 L Pulse Oximetry 97 Oxygen Delivery Method Room Air BMI result Body Mass Index 41.4 Labs 12/24/24 15:41 12/24/24 15:41 Imaging Radiology Impressions: ITS Impressions KUB X-Ray 12/14/24 16:10 IMPRESSION: No intestinal obstruction pattern. Electronically signed by: Wero Montanez MD 12/17/2024 08:14 AM EDT Medications Medications Current Medications Acetaminophen (Acetaminophen 325 Mg Tablet) 650 mg PO Q6H PRN PRN Reason: Headache/Pain, Scale 1-10 Last Admin: 12/16/24 12:01 Dose: 650 mg Al Hydroxide/Mg Hydroxide (Magnesium Hydrox/Alum Hydrox 30 Ml Oral.Susp) 30 ml PO Q6H PRN PRN Reason: Heartburn/Nausea Benztropine Mesylate (Benztropine Mesylate 1 Mg Tablet) 1 mg PO BID [facility] Last Admin: 01/04/25 08:31 Dose: 1 mg Clonidine HCl (Clonidine Hcl 0.1 Mg Tablet) 0.1 mg PO BID [facility]; Protocol Last Admin: 01/04/25 08:31 Dose: 0.1 mg Fluphenazine HCl (Fluphenazine Hcl 5 Mg Tablet) 5 mg PO TID [facility] Last Admin: 01/04/25 08:30 Dose: 5 mg Hydroxyzine HCl (Hydroxyzine Hcl 25 Mg Tablet) 25 mg PO Q6H PRN PRN Reason: mild anxiety Last Admin: 01/01/25 18:28 Dose: 25 mg Lorazepam (Lorazepam 0.5 Mg Tablet) 0.5 mg PO Q4H PRN PRN Reason: agitation Last Admin: 01/03/25 13:15 Dose: 0.5 mg Lorazepam (Lorazepam 1 Mg Tablet) 2 mg PO BID [facility] Last Admin: 01/04/25 08:29 Dose: 2 mg Magnesium Hydroxide (Milk Of Magnesia 30 Ml Oral.Susp) 30 ml PO DAILY PRN PRN Reason: Constipation Nicotine (Nicotine 21 Mg Patch.Td24) 21 mg TRANSDERMA DAILY PRN PRN Reason: smoking cessation Last Admin: 12/11/24 08:41 Dose: 21 mg Nicotine Polacrilex (Nicotine Polacrilex 2 Mg Gum) 4 mg BUCCAL Q2H PRN PRN Reason: Nicotine Cravings Polyethylene Glycol (Polyethylene Glycol 3350 17 Gm Powd.Pack) 17 gm PO DAILY [facility] Last Admin: 01/04/25 08:31 Dose: Not Given Polyethylene Glycol (Polyethylene Glycol 3350 17 Gm Powd.Pack) 17 gm PO DAILY PRN PRN Reason: continued Constipation Propranolol HCl (Propranolol Hcl 10 Mg Tablet) 15 mg PO TID [facility]; Protocol Last Admin: 01/04/25 08:29 Dose: 15 mg Thiamine HCl (Thiamine Hcl 100 Mg Tablet) 200 mg PO DAILY [facility] Last Admin: 01/04/25 08:31 Dose: 200 mg Trazodone HCl (Trazodone Hcl 50 Mg Tablet) 50 mg PO BEDTIME MRX1 PRN PRN Reason: Insomnia Last Admin: 01/03/25 21:26 Dose: 50 mg Allergies Allergies Allergy/AdvReac Type Severity Reaction Status Date / Time No Known Allergies Allergy Verified 12/09/24 12:43 Assessment & Plan Assessment & Plan (1) Catatonia: Status: Acute Code(s): F06.1 - Catatonic disorder due to known physiological condition (2) Schizoaffective disorder: Status: Acute Code(s): F25.9 - Schizoaffective disorder, unspecified (3) Cannabis use disorder: Status: Acute Code(s): F12.90 - Cannabis use, unspecified, uncomplicated Plan Admit, CV, One to One-SI, Disinhbition, Acute Psychosis Diagnostics as needed Collateral contact Milieu integration as tolerated Risperdal 2 mg bid Decrease Lorazepam to 0.5 mg q4h prn (pt is disinhibited, exposing himself) Depakote-continue Clonidine-continue Chlorpromazine prn (olanzapine has not been helpful by history) 12/12: DC Risperdal, Chlorpromazine Prolixin 5 bid and tid prn psychosis Increase Lorazapam to 1 mg tid Fe, CPK, CBCD, Myoglobin, EEG, B12,Folate, TSH, Valproate 12/14: KUB Continue current regime 12/15 remains with significant catatonic symptoms 1) Increased to Ativan 2mg QID. With increased dose, patient soon talked a little bit more (Ativan initially lowered out of concern that it was disinhibiting patient who was disrobing, however it seems more likely that this behavior is due to his psychotic disorganization than to effects of Ativan; currently. primary goal is to treat catatonia). 2)Discontinued Fluphenazine (for now) out of concern for antipsychotic being contributory to catatonia (also dc'd Depakote out of an abundance of caution) -Pt had told staff he has not had BM; KUB ordered but impression pending...Ordered Mirralx since no laxative ordered. Had nose bleed this morning which resolved on its own 12/16 still catatonic but a little more activity and talking a little more; though one word answers, pt responding appropriately to questions when asks. Says no voices, but later says AH remains. 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 Continue olanzapine 5 mg daily. 3/27 increase olanzapine to 7.5 mg daily 12/21 continue tx 12/22 seems to be responding to olanzapine ? if we could lower ativan a bit 12/23- agrees to inc olanzapine to 10mg, co feels sad and ah, but less catatonic- more engagable flat affect 12/25- Decrease Lorazepam to 2 mg tid, a decrease of 2 mg. 12/26: difficult to engage. +AH; continue current tx plan. 12/29: continue plan/regime 12/30: continue plan/regime 12/31: Decrease Lorazepam to tid due to pt reports of sedation. 01/02: Decrease Lorazepam to bid due to pt reports of sedation. 01/03: Increase Propranolol to 15 mg tid-anxiety, HTN sx. Family mtg 01/07. 01/04: Continue plan/regime. Reason for continued inpatient stay Substantial Risk for: rapid decompensation Time Spent With Patient Time: Total time managing care of this patient today ____ minutes.
[2025-01-04 14:27] VITALS: BP 129/67; PULSE 99
[2025-01-04 18:00] VITALS: BP 142/91; PULSE 112; RESP 18; TEMP 36.6; O2SAT 96
[2025-01-04] MEDS: LORazepam 0.5 MG TABLET PO (18:01)
[2025-01-04] MEDS: hydrOXYzine HCL 25 MG TABLET PO (18:13)
[2025-01-04 20:00] VITALS: BP 137/89; PULSE 92; RESP 18; TEMP 36.3; O2SAT 98
[2025-01-04] MEDS: traZODone HCL 50 MG TABLET PO (20:10)
--- NOTE | 2025-01-05 07:59 | P.PNPSI_ITS ---
Subjective Subjective Date of Service: 01/05/25 Reason For Visit: Psychosis Subjective Notes: Conditional Voluntary Healthcare Proxy: No Guardianship: No Medical Problems Affecting Mental Status: No Interim History: 24 yo with psychotic do partial catatonia was better/brighter yesterday and today back to odd engagement, limited - flat affect , speaking in [place] only- positive ah, and not feeling right ? sleeping he said no - will put trazodone standing dose on to see if likely he is not asking for anything to sleep given his passive condition Medication Compliance: Yes Side effects from medications: No Attending Groups: Intermittent Review of Systems Acute medical concerns: No Medical Review of Systems: unchanged Mental Status Exam Mental Status Exam Patient Appearance: Unkempt and Rigid Patient Orientation: Person and Place Level of Consciousness: Awake Patient Behavior: Guarded Behavior Comments: inapp space- came too close when I was speaking with another patient Mood Description: Apprehensive Affect Description: Blunted Ability to Follow Directions: Fair Speech Pattern: Impoverished and Poor Articulation Hallucinations: Auditory Thought Process: Slowed Thinking Thought Content: positive for Slowed Thinking and positive for Disorganized Abnormal Motor Activity Signs and Symptoms: Restlessness Judgement: Poor Diagnostics Vital Signs (24Hr): Vital Signs - 24 hr 01/04/25 08:00 01/04/25 14:27 01/04/25 18:00 Temperature 98.1 F 98 F Pulse Rate 85 99 112 H Respiratory Rate 18 Blood Pressure 105/58 L 129/67 142/91 H Pulse Oximetry 97 96 Oxygen Delivery Method Room Air Room Air 01/04/25 20:00 Temperature 97.3 F Pulse Rate 92 Respiratory Rate 18 Blood Pressure 137/89 Pulse Oximetry 98 Oxygen Delivery Method Room Air BMI result Body Mass Index 41.4 Labs 12/24/24 15:41 12/24/24 15:41 Imaging Radiology Impressions: ITS Impressions KUB X-Ray 12/14/24 16:10 IMPRESSION: No intestinal obstruction pattern. Electronically signed by: Wero Montanez MD 12/17/2024 08:14 AM EDT Medications Medications Current Medications Acetaminophen (Acetaminophen 325 Mg Tablet) 650 mg PO Q6H PRN PRN Reason: Headache/Pain, Scale 1-10 Last Admin: 12/16/24 12:01 Dose: 650 mg Al Hydroxide/Mg Hydroxide (Magnesium Hydrox/Alum Hydrox 30 Ml Oral.Susp) 30 ml PO Q6H PRN PRN Reason: Heartburn/Nausea Benztropine Mesylate (Benztropine Mesylate 1 Mg Tablet) 1 mg PO BID [facility] Last Admin: 01/04/25 22:15 Dose: 1 mg Clonidine HCl (Clonidine Hcl 0.1 Mg Tablet) 0.1 mg PO BID [facility]; Protocol Last Admin: 01/04/25 20:11 Dose: 0.1 mg Fluphenazine HCl (Fluphenazine Hcl 5 Mg Tablet) 5 mg PO TID [facility] Last Admin: 01/04/25 20:10 Dose: 5 mg Hydroxyzine HCl (Hydroxyzine Hcl 25 Mg Tablet) 25 mg PO Q6H PRN PRN Reason: mild anxiety Last Admin: 01/04/25 18:13 Dose: 25 mg Lorazepam (Lorazepam 0.5 Mg Tablet) 0.5 mg PO Q4H PRN PRN Reason: agitation Last Admin: 01/04/25 18:01 Dose: 0.5 mg Lorazepam (Lorazepam 1 Mg Tablet) 2 mg PO BID [facility] Last Admin: 01/04/25 20:10 Dose: 2 mg Magnesium Hydroxide (Milk Of Magnesia 30 Ml Oral.Susp) 30 ml PO DAILY PRN PRN Reason: Constipation Nicotine (Nicotine 21 Mg Patch.Td24) 21 mg TRANSDERMA DAILY PRN PRN Reason: smoking cessation Last Admin: 12/11/24 08:41 Dose: 21 mg Nicotine Polacrilex (Nicotine Polacrilex 2 Mg Gum) 4 mg BUCCAL Q2H PRN PRN Reason: Nicotine Cravings Polyethylene Glycol (Polyethylene Glycol 3350 17 Gm Powd.Pack) 17 gm PO DAILY [facility] Last Admin: 01/04/25 08:31 Dose: Not Given Polyethylene Glycol (Polyethylene Glycol 3350 17 Gm Powd.Pack) 17 gm PO DAILY PRN PRN Reason: continued Constipation Propranolol HCl (Propranolol Hcl 10 Mg Tablet) 15 mg PO TID [facility]; Protocol Last Admin: 01/04/25 20:10 Dose: 15 mg Thiamine HCl (Thiamine Hcl 100 Mg Tablet) 200 mg PO DAILY [facility] Last Admin: 01/04/25 08:31 Dose: 200 mg Trazodone HCl (Trazodone Hcl 50 Mg Tablet) 50 mg PO BEDTIME MRX1 PRN PRN Reason: Insomnia Last Admin: 01/04/25 20:10 Dose: 50 mg Allergies Allergies Allergy/AdvReac Type Severity Reaction Status Date / Time No Known Allergies Allergy Verified 12/09/24 12:43 Assessment & Plan Assessment & Plan (1) Catatonia: Status: Acute Code(s): F06.1 - Catatonic disorder due to known physiological condition (2) Schizoaffective disorder: Status: Acute Code(s): F25.9 - Schizoaffective disorder, unspecified (3) Cannabis use disorder: Status: Acute Code(s): F12.90 - Cannabis use, unspecified, uncomplicated Plan Admit, CV, One to One-SI, Disinhbition, Acute Psychosis Diagnostics as needed Collateral contact Milieu integration as tolerated Risperdal 2 mg bid Decrease Lorazepam to 0.5 mg q4h prn (pt is disinhibited, exposing himself) Depakote-continue Clonidine-continue Chlorpromazine prn (olanzapine has not been helpful by history) 12/12: DC Risperdal, Chlorpromazine Prolixin 5 bid and tid prn psychosis Increase Lorazapam to 1 mg tid Fe, CPK, CBCD, Myoglobin, EEG, B12,Folate, TSH, Valproate 12/14: KUB Continue current regime 12/15 remains with significant catatonic symptoms 1) Increased to Ativan 2mg QID. With increased dose, patient soon talked a little bit more (Ativan initially lowered out of concern that it was disinhibiting patient who was disrobing, however it seems more likely that this behavior is due to his psychotic disorganization than to effects of Ativan; currently. primary goal is to treat catatonia). 2)Discontinued Fluphenazine (for now) out of concern for antipsychotic being contributory to catatonia (also dc'd Depakote out of an abundance of caution) -Pt had told staff he has not had BM; KUB ordered but impression pending...Ordered Mirralx since no laxative ordered. Had nose bleed this morning which resolved on its own 12/16 still catatonic but a little more activity and talking a little more; though one word answers, pt responding appropriately to questions when asks. Says no voices, but later says AH remains. 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 Continue olanzapine 5 mg daily. 12/20 increase olanzapine to 7.5 mg daily 12/21 continue tx 12/22 seems to be responding to olanzapine ? if we could lower ativan a bit 12/23- agrees to inc olanzapine to 10mg, co feels sad and ah, but less catatonic- more engagable flat affect 12/25- Decrease Lorazepam to 2 mg tid, a decrease of 2 mg. 12/26: difficult to engage. +AH; continue current tx plan. 12/29: continue plan/regime 12/30: continue plan/regime 12/31: Decrease Lorazepam to tid due to pt reports of sedation. 01/02: Decrease Lorazepam to bid due to pt reports of sedation. 01/03: Increase Propranolol to 15 mg tid-anxiety, HTN sx. Family mtg 01/07. 01/04: Continue plan/regime. 01/05 lorazepam has been decreased he doesn't seem as well- and also co not sleeping well- ah- will review dec lorazepam but for tonight try trazodone scheduled instead of prn- which would mean he would have to actively ask for it and he may not be capable of that. Patient educated on: medication risk/benefits Informed Consent: understands Reason for continued inpatient stay Substantial Risk for: inability to function and rapid decompensation Time Spent With Patient Time: Total time managing care of this patient today ____ minutes.
[2025-01-05 08:00] VITALS: BP 130/63; PULSE 86; RESP 18; TEMP 37.1; O2SAT 97
[2025-01-05] MEDS: LORazepam 1 MG TABLET 2 MG PO ×2 (08:39→20:58)
[2025-01-05] MEDS: fluPHENAZine HCl 5 MG TABLET PO ×3 (08:39→20:58)
[2025-01-05] MEDS: Thiamine HCL 100 MG TABLET 200 MG PO (08:40)
[2025-01-05] MEDS: cloNIDine HCL 0.1 MG TABLET PO ×2 (08:40→20:59)
[2025-01-05] MEDS: Benztropine Mesylate 1 MG TABLET PO ×2 (08:40→20:58)
[2025-01-05] MEDS: Propranolol HCL 10 MG TABLET 15 MG PO ×3 (08:41→20:59)
[2025-01-05] MEDS: hydrOXYzine HCL 25 MG TABLET PO (09:13)
[2025-01-05 15:30] VITALS: BP 137/85; PULSE 113
[2025-01-05 19:53] VITALS: BP 135/81; PULSE 16; RESP 16; TEMP 36.4; O2SAT 97
[2025-01-05] MEDS: traZODone HCL 100 MG TABLET PO (20:59)
[2025-01-06 07:55] VITALS: BP 148/78; PULSE 102; RESP 18; TEMP 36.2; O2SAT 96
--- NOTE | 2025-01-06 08:06 | P.PNPSI_ITS ---
Subjective Subjective Date of Service: 01/06/25 Reason For Visit: Psychosis Subjective Notes: Conditional Voluntary Healthcare Proxy: No Guardianship: No Medical Problems Affecting Mental Status: No Interim History: Patient clearly struggling again - wishing he had stayed on higher ativan and inc - got cash applications representative for him and he said says where is the baby He doesn't know what baby- agreed that taking prn prolixin might help and we increased ativan back to 5mg/day (not the 6 he was on, though he also has prns-) Medication Compliance: Yes Side effects from medications: No Attending Groups: No Review of Systems Acute medical concerns: No Medical Review of Systems: unchanged Mental Status Exam Mental Status Exam Narrative: intense eye contact, Patient Appearance: Disheveled Patient Orientation: Person, Place and Situation Level of Consciousness: Awake Patient Behavior: Cooperative and Passive Mood Description: Apprehensive Affect Description: Blunted Patient Cognition Impaired: No Ability to Follow Directions: Fair Speech Pattern: Impoverished Hallucinations: Auditory Thought Process: Intact Thought Content: positive for [place] and positive for Poverty of Content Depressive Symptoms: Increased Anxiety Judgement: Fair Diagnostics Vital Signs (24Hr): Vital Signs - 24 hr 01/05/25 15:30 01/05/25 19:53 01/06/25 07:55 Temperature 97.6 F 97.2 F Pulse Rate 113 H 16 L 102 H Respiratory Rate 16 18 Blood Pressure 137/85 135/81 148/78 H Pulse Oximetry 97 96 Oxygen Delivery Method Room Air Room Air BMI result Body Mass Index 41.4 Labs 12/24/24 15:41 12/24/24 15:41 Imaging Radiology Impressions: ITS Impressions KUB X-Ray 12/14/24 16:10 IMPRESSION: No intestinal obstruction pattern. Electronically signed by: Wero Montanez MD 12/17/2024 08:14 AM EDT Medications Medications Current Medications Acetaminophen (Acetaminophen 325 Mg Tablet) 650 mg PO Q6H PRN PRN Reason: Headache/Pain, Scale 1-10 Last Admin: 12/16/24 12:01 Dose: 650 mg Al Hydroxide/Mg Hydroxide (Magnesium Hydrox/Alum Hydrox 30 Ml Oral.Susp) 30 ml PO Q6H PRN PRN Reason: Heartburn/Nausea Benztropine Mesylate (Benztropine Mesylate 1 Mg Tablet) 1 mg PO BID [facility] Last Admin: 01/05/25 20:58 Dose: 1 mg Clonidine HCl (Clonidine Hcl 0.1 Mg Tablet) 0.1 mg PO BID [facility]; Protocol Last Admin: 01/05/25 20:59 Dose: 0.1 mg Fluphenazine HCl (Fluphenazine Hcl 5 Mg Tablet) 5 mg PO TID [facility] Last Admin: 01/05/25 20:58 Dose: 5 mg Hydroxyzine HCl (Hydroxyzine Hcl 25 Mg Tablet) 25 mg PO Q6H PRN PRN Reason: mild anxiety Last Admin: 01/05/25 09:13 Dose: 25 mg Lorazepam (Lorazepam 0.5 Mg Tablet) 0.5 mg PO Q4H PRN PRN Reason: agitation Last Admin: 01/04/25 18:01 Dose: 0.5 mg Lorazepam (Lorazepam 1 Mg Tablet) 2 mg PO BID [facility] Last Admin: 01/05/25 20:58 Dose: 2 mg Magnesium Hydroxide (Milk Of Magnesia 30 Ml Oral.Susp) 30 ml PO DAILY PRN PRN Reason: Constipation Nicotine (Nicotine 21 Mg Patch.Td24) 21 mg TRANSDERMA DAILY PRN PRN Reason: smoking cessation Last Admin: 12/11/24 08:41 Dose: 21 mg Nicotine Polacrilex (Nicotine Polacrilex 2 Mg Gum) 4 mg BUCCAL Q2H PRN PRN Reason: Nicotine Cravings Polyethylene Glycol (Polyethylene Glycol 3350 17 Gm Powd.Pack) 17 gm PO DAILY [facility] Last Admin: 01/05/25 08:42 Dose: Not Given Polyethylene Glycol (Polyethylene Glycol 3350 17 Gm Powd.Pack) 17 gm PO DAILY PRN PRN Reason: continued Constipation Propranolol HCl (Propranolol Hcl 10 Mg Tablet) 15 mg PO TID [facility]; Protocol Last Admin: 01/05/25 20:59 Dose: 15 mg Thiamine HCl (Thiamine Hcl 100 Mg Tablet) 200 mg PO DAILY [facility] Last Admin: 01/05/25 08:40 Dose: 200 mg Trazodone HCl (Trazodone Hcl 100 Mg Tablet) 100 mg PO BEDTIME [facility] Last Admin: 01/05/25 20:59 Dose: 100 mg Allergies Allergies Allergy/AdvReac Type Severity Reaction Status Date / Time No Known Allergies Allergy Verified 12/09/24 12:43 Assessment & Plan Assessment & Plan (1) Catatonia: Status: Acute Code(s): F06.1 - Catatonic disorder due to known physiological condition (2) Schizoaffective disorder: Status: Acute Code(s): F25.9 - Schizoaffective disorder, unspecified (3) Cannabis use disorder: Status: Acute Code(s): F12.90 - Cannabis use, unspecified, uncomplicated Plan Admit, CV, One to One-SI, Disinhbition, Acute Psychosis Diagnostics as needed Collateral contact Milieu integration as tolerated Risperdal 2 mg bid Decrease Lorazepam to 0.5 mg q4h prn (pt is disinhibited, exposing himself) Depakote-continue Clonidine-continue Chlorpromazine prn (olanzapine has not been helpful by history) 12/12: DC Risperdal, Chlorpromazine Prolixin 5 bid and tid prn psychosis Increase Lorazapam to 1 mg tid Fe, CPK, CBCD, Myoglobin, EEG, B12,Folate, TSH, Valproate 12/14: KUB Continue current regime 12/15 remains with significant catatonic symptoms 1) Increased to Ativan 2mg QID. With increased dose, patient soon talked a little bit more (Ativan initially lowered out of concern that it was disinhibiting patient who was disrobing, however it seems more likely that this behavior is due to his psychotic disorganization than to effects of Ativan; currently. primary goal is to treat catatonia). 2)Discontinued Fluphenazine (for now) out of concern for antipsychotic being contributory to catatonia (also dc'd Depakote out of an abundance of caution) -Pt had told staff he has not had BM; KUB ordered but impression pending...Ordered Mirralx since no laxative ordered. Had nose bleed this morning which resolved on its own 12/16 still catatonic but a little more activity and talking a little more; though one word answers, pt responding appropriately to questions when asks. Says no voices, but later says AH remains. 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 Continue olanzapine 5 mg daily. 12/20 increase olanzapine to 7.5 mg daily 12/21 continue tx 12/22 seems to be responding to olanzapine ? if we could lower ativan a bit 12/23- agrees to inc olanzapine to 10mg, co feels sad and ah, but less catatonic- more engagable flat affect 12/25- Decrease Lorazepam to 2 mg tid, a decrease of 2 mg. 12/26: difficult to engage. +AH; continue current tx plan. 12/29: continue plan/regime 12/30: continue plan/regime 12/31: Decrease Lorazepam to tid due to pt reports of sedation. 01/02: Decrease Lorazepam to bid due to pt reports of sedation. 01/03: Increase Propranolol to 15 mg tid-anxiety, HTN sx. Family mtg 01/07. 01/04: Continue plan/regime. 01/05 lorazepam has been decreased he doesn't seem as well- and also co not sleeping well- ah- will review dec lorazepam but for tonight try trazodone scheduled instead of prn- which would mean he would have to actively ask for it and he may not be capable of that. 01/06 -add ativan 1mg q1pm, and prn prolixin 5mg Patient educated on: medication risk/benefits and other (symptoms) Informed Consent: understands Reason for continued inpatient stay Substantial Risk for: inability to function and rapid decompensation Time Spent With Patient Time: Total time managing care of this patient today ____ minutes.
[2025-01-06] MEDS: fluPHENAZine HCl 5 MG TABLET PO ×4 (08:51→21:04)
[2025-01-06] MEDS: LORazepam 1 MG TABLET 2 MG PO ×2 (08:51→21:04)
[2025-01-06] MEDS: Propranolol HCL 10 MG TABLET 15 MG PO ×3 (08:52→21:03)
[2025-01-06] MEDS: cloNIDine HCL 0.1 MG TABLET PO ×2 (08:52→21:04)
[2025-01-06] MEDS: Thiamine HCL 100 MG TABLET 200 MG PO (08:53)
[2025-01-06] MEDS: Benztropine Mesylate 1 MG TABLET PO ×2 (08:53→21:04)
[2025-01-06] MEDS: LORazepam 1 MG TABLET PO (12:13)
[2025-01-06 14:06] VITALS: BP 136/81; PULSE 113
[2025-01-06] MEDS: LORazepam 0.5 MG TABLET PO (14:06)
[2025-01-06] MEDS: hydrOXYzine HCL 25 MG TABLET PO (17:23)
[2025-01-06 20:00] VITALS: BP 142/88; PULSE 119; RESP 15; TEMP 36.5; O2SAT 96
[2025-01-06] MEDS: traZODone HCL 100 MG TABLET PO (21:04)
[2025-01-07 08:00] VITALS: BP 144/70; PULSE 95; RESP 18; TEMP 36.6; O2SAT 97
[2025-01-07] MEDS: Propranolol HCL 10 MG TABLET 15 MG PO ×3 (08:25→21:46)
[2025-01-07] MEDS: LORazepam 1 MG TABLET 2 MG PO ×4 (08:25→21:46)
[2025-01-07] MEDS: Benztropine Mesylate 1 MG TABLET PO ×2 (08:26→21:47)
[2025-01-07] MEDS: cloNIDine HCL 0.1 MG TABLET PO ×2 (08:26→21:46)
[2025-01-07] MEDS: fluPHENAZine HCl 5 MG TABLET PO ×3 (08:26→21:45)
[2025-01-07] MEDS: Thiamine HCL 100 MG TABLET 200 MG PO (08:26)
--- NOTE | 2025-01-07 09:43 | HO.PSYCHPN ---
Subjective Subjective Date of Service: 01/07/25 Reason For Visit: Psychosis Subjective Notes: Conditional Voluntary Healthcare Proxy: No Guardianship: No Medical Problems Affecting Mental Status: No Interim History: Pt/team report an increase in sx over the weekend-anxiety, withdrawal, paranoia. Most likely due to Ativan decrease which was prompted due to pt reporting sedation. Team met with mother. We will postpone discharge, increase Lorazepam to 2 mg tid. Medication Compliance: Yes Side effects from medications: Yes (paranoia, voices, anxiety) Attending Groups: No Review of Systems Acute medical concerns: No Medical Review of Systems: unchanged Review of Systems Review of Systems Denies Mental Status Exam Mental Status Exam Patient Appearance: Disheveled and Unkempt Patient Orientation: Person, Place and Situation Level of Consciousness: Alert Patient Behavior: Talkative, Fatigued, Distractible and Good Eye Contact Mood Description: Depressed and Anxious Affect Description: Apprehensive Patient Cognition Impaired: No Ability to Follow Directions: Good Speech Pattern: Spontaneous Speech and Soft-Spoken Memory Description: Intact Hallucinations: Auditory Delusions: Paranoid Ideation and Present Thought Process: Rumination Thought Content: positive for [place], positive for Circumstantial, positive for Perseveration, positive for Poverty of Content and positive for Preoccupation Depressive Symptoms: Increased Anxiety, Insomnia, Difficulty Sleeping, Unhappiness, Increased Fatigue, Loss of Energy and Difficulty Concentrating Judgement: Poor Diagnostics Vital Signs (24Hr): Vital Signs - 24 hr 01/06/25 14:06 01/06/25 20:00 01/07/25 08:00 Temperature 97.7 F 97.8 F Pulse Rate 113 H 119 H 95 Respiratory Rate 15 18 Blood Pressure 136/81 142/88 H 144/70 H Pulse Oximetry 96 97 Oxygen Delivery Method Room Air BMI result Body Mass Index 41.4 Labs 12/24/24 15:41 12/24/24 15:41 Imaging Radiology Impressions: ITS Impressions KUB X-Ray 12/14/24 16:10 IMPRESSION: No intestinal obstruction pattern. Electronically signed by: Wero Montanez MD 12/17/2024 08:14 AM EDT Medications Medications Current Medications Acetaminophen (Acetaminophen 325 Mg Tablet) 650 mg PO Q6H PRN PRN Reason: Headache/Pain, Scale 1-10 Last Admin: 12/16/24 12:01 Dose: 650 mg Al Hydroxide/Mg Hydroxide (Magnesium Hydrox/Alum Hydrox 30 Ml Oral.Susp) 30 ml PO Q6H PRN PRN Reason: Heartburn/Nausea Benztropine Mesylate (Benztropine Mesylate 1 Mg Tablet) 1 mg PO BID [facility] Last Admin: 01/07/25 08:26 Dose: 1 mg Clonidine HCl (Clonidine Hcl 0.1 Mg Tablet) 0.1 mg PO BID [facility]; Protocol Last Admin: 01/07/25 08:26 Dose: 0.1 mg Fluphenazine HCl (Fluphenazine Hcl 5 Mg Tablet) 5 mg PO TID [facility] Last Admin: 01/07/25 08:26 Dose: 5 mg Fluphenazine HCl (Fluphenazine Hcl 5 Mg Tablet) 5 mg PO DAILY PRN PRN Reason: psychosis Last Admin: 01/06/25 17:23 Dose: 5 mg Hydroxyzine HCl (Hydroxyzine Hcl 25 Mg Tablet) 25 mg PO Q6H PRN PRN Reason: mild anxiety Last Admin: 01/06/25 17:23 Dose: 25 mg Lorazepam (Lorazepam 1 Mg Tablet) 2 mg PO BID [facility] Last Admin: 01/07/25 08:25 Dose: 2 mg Lorazepam (Lorazepam 1 Mg Tablet) 1 mg PO DAILY@1300 [facility] Last Admin: 01/06/25 12:13 Dose: 1 mg Lorazepam (Lorazepam 0.5 Mg Tablet) 0.5 mg PO Q4H PRN PRN Reason: Anxiety Magnesium Hydroxide (Milk Of Magnesia 30 Ml Oral.Susp) 30 ml PO DAILY PRN PRN Reason: Constipation Nicotine (Nicotine 21 Mg Patch.Td24) 21 mg TRANSDERMA DAILY PRN PRN Reason: smoking cessation Last Admin: 12/11/24 08:41 Dose: 21 mg Nicotine Polacrilex (Nicotine Polacrilex 2 Mg Gum) 4 mg BUCCAL Q2H PRN PRN Reason: Nicotine Cravings Polyethylene Glycol (Polyethylene Glycol 3350 17 Gm Powd.Pack) 17 gm PO DAILY [facility] Last Admin: 01/07/25 08:38 Dose: Not Given Polyethylene Glycol (Polyethylene Glycol 3350 17 Gm Powd.Pack) 17 gm PO DAILY PRN PRN Reason: continued Constipation Propranolol HCl (Propranolol Hcl 10 Mg Tablet) 15 mg PO TID [facility]; Protocol Last Admin: 01/07/25 08:25 Dose: 15 mg Thiamine HCl (Thiamine Hcl 100 Mg Tablet) 200 mg PO DAILY [facility] Last Admin: 01/07/25 08:26 Dose: 200 mg Trazodone HCl (Trazodone Hcl 100 Mg Tablet) 100 mg PO BEDTIME [facility] Last Admin: 01/06/25 21:04 Dose: 100 mg Allergies Allergies Allergy/AdvReac Type Severity Reaction Status Date / Time No Known Allergies Allergy Verified 12/09/24 12:43 Assessment & Plan Assessment & Plan (1) Catatonia: Status: Acute Code(s): F06.1 - Catatonic disorder due to known physiological condition (2) Schizoaffective disorder: Status: Acute Code(s): F25.9 - Schizoaffective disorder, unspecified (3) Cannabis use disorder: Status: Acute Code(s): F12.90 - Cannabis use, unspecified, uncomplicated Plan Admit, CV, One to One-SI, Disinhbition, Acute Psychosis Diagnostics as needed Collateral contact Milieu integration as tolerated Risperdal 2 mg bid Decrease Lorazepam to 0.5 mg q4h prn (pt is disinhibited, exposing himself) Depakote-continue Clonidine-continue Chlorpromazine prn (olanzapine has not been helpful by history) 12/12: DC Risperdal, Chlorpromazine Prolixin 5 bid and tid prn psychosis Increase Lorazapam to 1 mg tid Fe, CPK, CBCD, Myoglobin, EEG, B12,Folate, TSH, Valproate 12/14: KUB Continue current regime 12/15 remains with significant catatonic symptoms 1) Increased to Ativan 2mg QID. With increased dose, patient soon talked a little bit more (Ativan initially lowered out of concern that it was disinhibiting patient who was disrobing, however it seems more likely that this behavior is due to his psychotic disorganization than to effects of Ativan; currently. primary goal is to treat catatonia). 2)Discontinued Fluphenazine (for now) out of concern for antipsychotic being contributory to catatonia (also dc'd Depakote out of an abundance of caution) -Pt had told staff he has not had BM; KUB ordered but impression pending...Ordered Mirralx since no laxative ordered. Had nose bleed this morning which resolved on its own 12/16 still catatonic but a little more activity and talking a little more; though one word answers, pt responding appropriately to questions when asks. Says no voices, but later says AH remains. 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 Continue olanzapine 5 mg daily. 12/20 increase olanzapine to 7.5 mg daily 12/21 continue tx 12/22 seems to be responding to olanzapine ? if we could lower ativan a bit 12/23- agrees to inc olanzapine to 10mg, co feels sad and ah, but less catatonic- more engagable flat affect 12/25- Decrease Lorazepam to 2 mg tid, a decrease of 2 mg. 12/26: difficult to engage. +AH; continue current tx plan. 12/29: continue plan/regime 12/30: continue plan/regime 12/31: Decrease Lorazepam to tid due to pt reports of sedation. 01/02: Decrease Lorazepam to bid due to pt reports of sedation. 01/03: Increase Propranolol to 15 mg tid-anxiety, HTN sx. Family mtg 01/07. 01/04: Continue plan/regime. 01/05 lorazepam has been decreased he doesn't seem as well- and also co not sleeping well- ah- will review dec lorazepam but for tonight try trazodone scheduled instead of prn- which would mean he would have to actively ask for it and he may not be capable of that. 01/06 -add ativan 1mg q1pm, and prn prolixin 5mg 01/07- increase ativan to 2 mg tid Reason for continued inpatient stay Substantial Risk for: rapid decompensation Time Spent With Patient Time: Total time managing care of this patient today ____ minutes.
[2025-01-07 14:25] VITALS: BP 132/91; PULSE 110
[2025-01-07 20:00] VITALS: BP 134/64; PULSE 106; RESP 16; TEMP 37.1; O2SAT 98
[2025-01-07 21:46] VITALS: BP 134/64; PULSE 102
[2025-01-07] MEDS: traZODone HCL 100 MG TABLET PO (21:46)
--- NOTE | 2025-01-07 23:36 | PC.NURSE ---
DUE TO SCANNING ISSUE ON DECEMBER 30, 2024 THE FOLLOWING MEDICATION WAS NOT ENTERED IN THE MAR. RX # [id number] LORAZEPAM 0.5 MG DISPENSED ON DECEMBER 30 2024 AT 2008 AND ADMINISTERED ON DECEMBER 30 2024 AT 2032. THIS NOTE IS BEING ENTERED PER INSTRUCTION OF COMBER OPERATOR. TO RESOLVE BLUE SIGHT INCIDENT.
[2025-01-08 07:45] VITALS: BP 136/77; PULSE 87; TEMP 37; O2SAT 95
[2025-01-08] MEDS: LORazepam 1 MG TABLET 2 MG PO ×3 (08:40→21:42)
[2025-01-08] MEDS: fluPHENAZine HCl 5 MG TABLET PO ×5 (08:40→21:43)
[2025-01-08] MEDS: Propranolol HCL 10 MG TABLET 15 MG PO ×3 (08:41→21:43)
[2025-01-08] MEDS: polyethylene glycoL 3350 17 GM POWD.PACK PO (08:42)
[2025-01-08] MEDS: Benztropine Mesylate 1 MG TABLET PO ×2 (08:42→21:42)
[2025-01-08] MEDS: cloNIDine HCL 0.1 MG TABLET PO ×2 (08:42→21:42)
[2025-01-08] MEDS: Thiamine HCL 100 MG TABLET 200 MG PO (08:42)
[2025-01-08] MEDS: LORazepam 0.5 MG TABLET PO (10:16)
[2025-01-08] MEDS: hydrOXYzine HCL 25 MG TABLET PO (13:30)
[2025-01-08 14:18] VITALS: BP 131/67; PULSE 101
--- NOTE | 2025-01-08 16:11 | P.PNPSI_ITS ---
Subjective Subjective Date of Service: 01/08/25 Reason For Visit: Psychosis Interim History: Met with patient; discussed with team Patient seen with monotypist Patient reports that auditory hallucinations remain and are worse today than yesterday. He said last week for some amount of time he had zero AH (seems to have been for about 1-2 days); patient said they are louder today and saying to turn [himself] off... Patient agreed to titrating Prolixin; he said taking the p.r.n. 5 mg Prolixin did help for a little bit Mental Status Exam Mental Status Exam Patient Appearance: Unkempt Patient Orientation: Person, Place and Situation Level of Consciousness: Alert Patient Behavior: Cooperative, Anxious and Good Eye Contact Mood Description: Depressed and Anxious Affect Description: Apprehensive Patient Cognition Impaired: No Ability to Follow Directions: Good Speech Pattern: Spontaneous Speech and Soft-Spoken Memory Description: Intact Hallucinations: Auditory Delusions: Paranoid Ideation and Present Thought Process: Rumination Thought Content: positive for [place], positive for Circumstantial, positive for Perseveration, positive for Poverty of Content and positive for Preoccupation Depressive Symptoms: Increased Anxiety, Insomnia, Difficulty Sleeping, Unhappiness, Increased Fatigue, Loss of Energy and Difficulty Concentrating Judgement and Insight: impaired Diagnostics Vital Signs (24Hr): Vital Signs - 24 hr 01/07/25 20:00 01/07/25 21:46 01/07/25 21:46 Temperature 98.8 F Pulse Rate 106 H 102 H Respiratory Rate 16 Blood Pressure 134/64 134/64 134/64 Pulse Oximetry 98 Oxygen Delivery Method Room Air 01/08/25 07:45 01/08/25 14:18 Temperature 98.6 F Pulse Rate 87 101 H Respiratory Rate Blood Pressure 136/77 131/67 Pulse Oximetry 95 Oxygen Delivery Method Room Air BMI result Body Mass Index 41.4 Labs 12/24/24 15:41 12/24/24 15:41 Imaging Radiology Impressions: ITS Impressions K[facility] X-Ray 12/14/24 16:10 IMPRESSION: No intestinal obstruction pattern. Electronically signed by: Wero Montanez MD 12/17/2024 08:14 AM EDT Medications Medications Current Medications Acetaminophen (Acetaminophen 325 Mg Tablet) 650 mg PO Q6H PRN PRN Reason: Headache/Pain, Scale 1-10 Last Admin: 12/16/24 12:01 Dose: 650 mg Al Hydroxide/Mg Hydroxide (Magnesium Hydrox/Alum Hydrox 30 Ml Oral.Susp) 30 ml PO Q6H PRN PRN Reason: Heartburn/Nausea Benztropine Mesylate (Benztropine Mesylate 1 Mg Tablet) 1 mg PO BID [facility] Last Admin: 01/08/25 08:42 Dose: 1 mg Clonidine HCl (Clonidine Hcl 0.1 Mg Tablet) 0.1 mg PO BID [facility]; Protocol Last Admin: 01/08/25 08:42 Dose: 0.1 mg Fluphenazine HCl (Fluphenazine Hcl 5 Mg Tablet) 5 mg PO DAILY PRN PRN Reason: psychosis Last Admin: 01/08/25 10:16 Dose: 5 mg Fluphenazine HCl (Fluphenazine Hcl 5 Mg Tablet) 5 mg PO QID [facility] Hydroxyzine HCl (Hydroxyzine Hcl 25 Mg Tablet) 25 mg PO Q6H PRN PRN Reason: mild anxiety Last Admin: 01/08/25 13:30 Dose: 25 mg Lorazepam (Lorazepam 0.5 Mg Tablet) 0.5 mg PO Q4H PRN PRN Reason: Anxiety Last Admin: 01/08/25 10:16 Dose: 0.5 mg Lorazepam (Lorazepam 1 Mg Tablet) 2 mg PO TID [facility] Last Admin: 01/08/25 14:18 Dose: 2 mg Magnesium Hydroxide (Milk Of Magnesia 30 Ml Oral.Susp) 30 ml PO DAILY PRN PRN Reason: Constipation Nicotine (Nicotine 21 Mg Patch.Td24) 21 mg TRANSDERMA DAILY PRN PRN Reason: smoking cessation Last Admin: 12/11/24 08:41 Dose: 21 mg Nicotine Polacrilex (Nicotine Polacrilex 2 Mg Gum) 4 mg BUCCAL Q2H PRN PRN Reason: Nicotine Cravings Polyethylene Glycol (Polyethylene Glycol 3350 17 Gm Powd.Pack) 17 gm PO DAILY [facility] Last Admin: 01/08/25 08:42 Dose: 17 gm Polyethylene Glycol (Polyethylene Glycol 3350 17 Gm Powd.Pack) 17 gm PO DAILY PRN PRN Reason: continued Constipation Propranolol HCl (Propranolol Hcl 10 Mg Tablet) 15 mg PO TID [facility]; Protocol Last Admin: 01/08/25 14:18 Dose: 15 mg Thiamine HCl (Thiamine Hcl 100 Mg Tablet) 200 mg PO DAILY [facility] Last Admin: 01/08/25 08:42 Dose: 200 mg Trazodone HCl (Trazodone Hcl 100 Mg Tablet) 100 mg PO BEDTIME [facility] Last Admin: 01/07/25 21:46 Dose: 100 mg Allergies Allergies Allergy/AdvReac Type Severity Reaction Status Date / Time No Known Allergies Allergy Verified 12/09/24 12:43 Assessment & Plan Assessment & Plan (1) Catatonia: Status: Acute Code(s): F06.1 - Catatonic disorder due to known physiological condition (2) Schizoaffective disorder: Status: Acute Code(s): F25.9 - Schizoaffective disorder, unspecified (3) Cannabis use disorder: Status: Acute Code(s): F12.90 - Cannabis use, unspecified, uncomplicated Plan Admit, CV, One to One-SI, Disinhbition, Acute Psychosis Diagnostics as needed Collateral contact Milieu integration as tolerated Risperdal 2 mg bid Decrease Lorazepam to 0.5 mg q4h prn (pt is disinhibited, exposing himself) Depakote-continue Clonidine-continue Chlorpromazine prn (olanzapine has not been helpful by history) 12/12: DC Risperdal, Chlorpromazine Prolixin 5 bid and tid prn psychosis Increase Lorazapam to 1 mg tid Fe, CPK, CBCD, Myoglobin, EEG, B12,Folate, TSH, Valproate 12/14: KUB Continue current regime 12/15 remains with significant catatonic symptoms 1) Increased to Ativan 2mg QID. With increased dose, patient soon talked a little bit more (Ativan initially lowered out of concern that it was disinhibiting patient who was disrobing, however it seems more likely that this behavior is due to his psychotic disorganization than to effects of Ativan; currently. primary goal is to treat catatonia). 2)Discontinued Fluphenazine (for now) out of concern for antipsychotic being contributory to catatonia (also dc'd Depakote out of an abundance of caution) -Pt had told staff he has not had BM; KUB ordered but impression pending...Ordered Mirralx since no laxative ordered. Had nose bleed this morning which resolved on its own 12/16 still catatonic but a little more activity and talking a little more; though one word answers, pt responding appropriately to questions when asks. Says no voices, but later says AH remains. 12/17 plan frame changer the weekend-continue tx 12/19 trial of olanzapine 5 mg with a decrease in auditory perceptual alterations. Continue olanzapine 5 mg daily. 12/20 increase olanzapine to 7.5 mg daily 12/21 continue tx 12/22 seems to be responding to olanzapine ? if we could lower ativan a bit 12/23- agrees to inc olanzapine to 10mg, co feels sad and ah, but less catatonic- more engagable flat affect 12/25- Decrease Lorazepam to 2 mg tid, a decrease of 2 mg. 12/26: difficult to engage. +AH; continue current tx plan. 12/29: continue plan/regime 12/30: continue plan/regime 12/31: Decrease Lorazepam to tid due to pt reports of sedation. 01/02: Decrease Lorazepam to bid due to pt reports of sedation. 01/03: Increase Propranolol to 15 mg tid-anxiety, HTN sx. Family mtg 01/07. 01/04: Continue plan/regime. 01/05 lorazepam has been decreased he doesn't seem as well- and also co not sleeping well- ah- will review dec lorazepam but for tonight try trazodone scheduled instead of prn- which would mean he would have to actively ask for it and he may not be capable of that. 01/06 -add ativan 1mg q1pm, and prn prolixin 5mg 01/07- increase ativan to 2 mg tid 01/08 Patient reports that auditory hallucinations remain and are worse today than yesterday. He said last week for some amount of time he had zero AH (seems to have been for about 1-2 days); patient said they are louder today and saying to turn [himself] off... Patient agreed to titrating Prolixin; he said taking the p.r.n. 5 mg Prolixin did help for a little bit -will increase Prolixin to 5 mg q.i.d. (up from t.i.d.) on the off chance that higher dose is beneficial. Patient educated on: diagnosis and medication risk/benefits Informed Consent: understands and further education needed Reason for continued inpatient stay Substantial Risk for: inability to function Time Spent With Patient Time: Total time managing care of this patient today ____ minutes.
[2025-01-08 20:00] VITALS: BP 170/78; PULSE 106; RESP 20; TEMP 36.7
[2025-01-08 20:05] VITALS: BP 145/66; PULSE 106; RESP 18; TEMP 36.7; O2SAT 96
[2025-01-08] MEDS: traZODone HCL 100 MG TABLET PO (21:42)
[2025-01-09 08:00] VITALS: BP 143/71; PULSE 83; TEMP 36.8; O2SAT 94
[2025-01-09] MEDS: Propranolol HCL 10 MG TABLET 15 MG PO ×3 (08:42→21:21)
[2025-01-09] MEDS: LORazepam 1 MG TABLET 2 MG PO ×3 (08:42→21:21)
[2025-01-09] MEDS: polyethylene glycoL 3350 17 GM POWD.PACK PO (08:42)
[2025-01-09] MEDS: Thiamine HCL 100 MG TABLET 200 MG PO (08:43)
[2025-01-09] MEDS: cloNIDine HCL 0.1 MG TABLET PO ×2 (08:44→21:21)
[2025-01-09] MEDS: Benztropine Mesylate 1 MG TABLET PO ×2 (08:44→21:21)
[2025-01-09] MEDS: fluPHENAZine HCl 5 MG TABLET PO ×5 (08:44→21:21)
[2025-01-09] MEDS: LORazepam 0.5 MG TABLET PO (10:37)
[2025-01-09] MEDS: hydrOXYzine HCL 25 MG TABLET PO (11:58)
--- NOTE | 2025-01-09 13:39 | P.PNPSI_ITS ---
Subjective Subjective Date of Service: 01/09/25 Reason For Visit: Psychosis Subjective Notes: Conditional Voluntary Healthcare Proxy: No Guardianship: No Medical Problems Affecting Mental Status: No Interim History: Team reports increase in PRN use, anxious. Met with pt, team, towel stretcher. Pt reports he misses his mom, is anxious, has no voices, +depressive sx, is worried about mom- that we will be . Also reports he is sleepy. Asks to call his mom who will visit today. Medication Compliance: Yes Side effects from medications: Yes (depression, anxiety-?situational--sleepy) Attending Groups: Intermittent Review of Systems Acute medical concerns: No Medical Review of Systems: unchanged Review of Systems Review of Systems Denies Mental Status Exam Mental Status Exam Patient Appearance: Fatigued and Disheveled Patient Orientation: Person, Place, Time and Situation Level of Consciousness: Alert Patient Behavior: Talkative and Good Eye Contact Mood Description: Depressed, Anxious and Flat Affect Description: Anxious and Flat Patient Cognition Impaired: No Ability to Follow Directions: Good Speech Pattern: Spontaneous Speech and Soft-Spoken Memory Description: Episodic Impaired Hallucinations: None Delusions: Not Present Thought Process: Rumination Thought Content: positive for Perseveration Depressive Symptoms: Increased Anxiety Judgement: Fair Diagnostics Vital Signs (24Hr): Vital Signs - 24 hr 01/08/25 14:18 01/08/25 20:00 01/08/25 20:05 Temperature 98.1 F 98.1 F Pulse Rate 101 H 106 H 106 H Respiratory Rate 20 18 Blood Pressure 131/67 170/78 H 145/66 H Pulse Oximetry 96 Oxygen Delivery Method Room Air 01/09/25 08:00 Temperature 98.2 F Pulse Rate 83 Respiratory Rate Blood Pressure 143/71 H Pulse Oximetry 94 Oxygen Delivery Method Room Air BMI result Body Mass Index 41.4 Labs 12/24/24 15:41 12/24/24 15:41 Imaging Radiology Impressions: ITS Impressions KUB X-Ray 12/14/24 16:10 IMPRESSION: No intestinal obstruction pattern. Electronically signed by: Wero Montanez MD 12/17/2024 08:14 AM EDT Medications Medications Current Medications Acetaminophen (Acetaminophen 325 Mg Tablet) 650 mg PO Q6H PRN PRN Reason: Headache/Pain, Scale 1-10 Last Admin: 12/16/24 12:01 Dose: 650 mg Al Hydroxide/Mg Hydroxide (Magnesium Hydrox/Alum Hydrox 30 Ml Oral.Susp) 30 ml PO Q6H PRN PRN Reason: Heartburn/Nausea Benztropine Mesylate (Benztropine Mesylate 1 Mg Tablet) 1 mg PO BID [facility] Last Admin: 01/09/25 08:44 Dose: 1 mg Clonidine HCl (Clonidine Hcl 0.1 Mg Tablet) 0.1 mg PO BID [facility]; Protocol Last Admin: 01/09/25 08:44 Dose: 0.1 mg Fluphenazine HCl (Fluphenazine Hcl 5 Mg Tablet) 5 mg PO DAILY PRN PRN Reason: psychosis Last Admin: 01/09/25 10:37 Dose: 5 mg Fluphenazine HCl (Fluphenazine Hcl 5 Mg Tablet) 5 mg PO QID [facility] Last Admin: 01/09/25 12:45 Dose: 5 mg Hydroxyzine HCl (Hydroxyzine Hcl 25 Mg Tablet) 25 mg PO Q6H PRN PRN Reason: mild anxiety Last Admin: 01/09/25 11:58 Dose: 25 mg Lorazepam (Lorazepam 0.5 Mg Tablet) 0.5 mg PO Q4H PRN PRN Reason: Anxiety Last Admin: 01/09/25 10:37 Dose: 0.5 mg Lorazepam (Lorazepam 1 Mg Tablet) 2 mg PO TID [facility] Last Admin: 01/09/25 08:42 Dose: 2 mg Magnesium Hydroxide (Milk Of Magnesia 30 Ml Oral.Susp) 30 ml PO DAILY PRN PRN Reason: Constipation Nicotine (Nicotine 21 Mg Patch.Td24) 21 mg TRANSDERMA DAILY PRN PRN Reason: smoking cessation Last Admin: 12/11/24 08:41 Dose: 21 mg Nicotine Polacrilex (Nicotine Polacrilex 2 Mg Gum) 4 mg BUCCAL Q2H PRN PRN Reason: Nicotine Cravings Polyethylene Glycol (Polyethylene Glycol 3350 17 Gm Powd.Pack) 17 gm PO DAILY [facility] Last Admin: 01/09/25 08:42 Dose: 17 gm Polyethylene Glycol (Polyethylene Glycol 3350 17 Gm Powd.Pack) 17 gm PO DAILY PRN PRN Reason: continued Constipation Propranolol HCl (Propranolol Hcl 10 Mg Tablet) 15 mg PO TID [facility]; Protocol Last Admin: 01/09/25 08:42 Dose: 15 mg Thiamine HCl (Thiamine Hcl 100 Mg Tablet) 200 mg PO DAILY [facility] Last Admin: 01/09/25 08:43 Dose: 200 mg Trazodone HCl (Trazodone Hcl 100 Mg Tablet) 100 mg PO BEDTIME [facility] Last Admin: 01/08/25 21:42 Dose: 100 mg Allergies Allergies Allergy/AdvReac Type Severity Reaction Status Date / Time No Known Allergies Allergy Verified 12/09/24 12:43 Assessment & Plan Assessment & Plan (1) Catatonia: Status: Acute Code(s): F06.1 - Catatonic disorder due to known physiological condition (2) Schizoaffective disorder: Status: Acute Code(s): F25.9 - Schizoaffective disorder, unspecified (3) Cannabis use disorder: Status: Acute Code(s): F12.90 - Cannabis use, unspecified, uncomplicated Plan Admit, CV, One to One-SI, Disinhbition, Acute Psychosis Diagnostics as needed Collateral contact Milieu integration as tolerated Risperdal 2 mg bid Decrease Lorazepam to 0.5 mg q4h prn (pt is disinhibited, exposing himself) Depakote-continue Clonidine-continue Chlorpromazine prn (olanzapine has not been helpful by history) 12/12: DC Risperdal, Chlorpromazine Prolixin 5 bid and tid prn psychosis Increase Lorazapam to 1 mg tid Fe, CPK, CBCD, Myoglobin, EEG, B12,Folate, TSH, Valproate 12/14: KUB Continue current regime 12/15 remains with significant catatonic symptoms 1) Increased to Ativan 2mg QID. With increased dose, patient soon talked a little bit more (Ativan initially lowered out of concern that it was disinhibiting patient who was disrobing, however it seems more likely that this behavior is due to his psychotic disorganization than to effects of Ativan; currently. primary goal is to treat catatonia). 2)Discontinued Fluphenazine (for now) out of concern for antipsychotic being contributory to catatonia (also dc'd Depakote out of an abundance of caution) -Pt had told staff he has not had BM; KUB ordered but impression pending...Ordered Mirralx since no laxative ordered. Had nose bleed this morning which resolved on its own 12/16 still catatonic but a little more activity and talking a little more; though one word answers, pt responding appropriately to questions when asks. Says no voices, but later says AH remains. 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 Continue olanzapine 5 mg daily. 12/20 increase olanzapine to 7.5 mg daily 12/21 continue tx 12/22 seems to be responding to olanzapine ? if we could lower ativan a bit 12/23- agrees to inc olanzapine to 10mg, co feels sad and ah, but less catatonic- more engagable flat affect 12/25- Decrease Lorazepam to 2 mg tid, a decrease of 2 mg. 12/26: difficult to engage. +AH; continue current tx plan. 12/29: continue plan/regime 12/30: continue plan/regime 12/31: Decrease Lorazepam to tid due to pt reports of sedation. 01/02: Decrease Lorazepam to bid due to pt reports of sedation. 01/03: Increase Propranolol to 15 mg tid-anxiety, HTN sx. Family mtg 01/07. 01/04: Continue plan/regime. 01/05 lorazepam has been decreased he doesn't seem as well- and also co not sleeping well- ah- will review dec lorazepam but for tonight try trazodone scheduled instead of prn- which would mean he would have to actively ask for it and he may not be capable of that. 01/06 -add ativan 1mg q1pm, and prn prolixin 5mg 01/07- increase ativan to 2 mg tid 01/08 Patient reports that auditory hallucinations remain and are worse today than yesterday. He said last week for some amount of time he had zero AH (seems to have been for about 1-2 days); patient said they are louder today and saying to turn [himself] off... Patient agreed to titrating Prolixin; he said taking the p.r.n. 5 mg Prolixin did help for a little bit -will increase Prolixin to 5 mg q.i.d. (up from t.i.d.) on the off chance that higher dose is beneficial. 01/09. Continue regime/plan Reason for continued inpatient stay Substantial Risk for: rapid decompensation Time Spent With Patient Time: Total time managing care of this patient today ____ minutes.
[2025-01-09 20:00] VITALS: BP 129/71; PULSE 102; RESP 14; TEMP 36.6; O2SAT 96
[2025-01-09] MEDS: traZODone HCL 100 MG TABLET PO (21:21)
[2025-01-10] VITALS (7 sets, daily range): BP systolic 118–143; BP diastolic 62–77; PULSE 88–104; RESP 16; TEMP 36.8; O2SAT 97; BMI 41.6
[2025-01-10] MEDS: LORazepam 1 MG TABLET 2 MG PO ×4 (08:30→21:08)
[2025-01-10] MEDS: fluPHENAZine HCl 5 MG TABLET PO ×3 (09:30→21:10)
[2025-01-10] MEDS: polyethylene glycoL 3350 17 GM POWD.PACK PO (09:30)
[2025-01-10] MEDS: cloNIDine HCL 0.1 MG TABLET PO ×2 (09:30→21:08)
[2025-01-10] MEDS: Propranolol HCL 10 MG TABLET 15 MG PO ×2 (09:31→14:05)
[2025-01-10] MEDS: Thiamine HCL 100 MG TABLET 200 MG PO (09:31)
[2025-01-10] MEDS: Benztropine Mesylate 1 MG TABLET PO ×2 (09:33→21:10)
--- NOTE | 2025-01-10 11:18 | HO.PSYCHPN ---
Subjective Subjective Date of Service: 01/10/25 Reason For Visit: Psychosis Subjective Notes: Conditional Voluntary Healthcare Proxy: No Guardianship: No Medical Problems Affecting Mental Status: No Interim History: Pt has deteriorated today. He barely speaks-one word responses. Not able to direct team as to what sx are present and how to help him. Appears with catatonic sx. Drooling at times. Team reports minimal interactions. Medication Compliance: Yes Side effects from medications: Yes (??) Attending Groups: Intermittent Review of Systems Review of Systems Yes Unobtainable due to mental status Mental Status Exam Mental Status Exam Patient Appearance: Fatigued Patient Orientation: Person, Place and Situation Level of Consciousness: Alert Patient Behavior: Guarded, Passive, Avoidant, Fatigued, Distractible and Good Eye Contact Mood Description: Withdrawn Affect Description: Withdrawn Patient Cognition Impaired: No Ability to Follow Directions: Fair Speech Pattern: Impoverished, Spontaneous Speech, Soft-Spoken, Delayed, Poor Articulation and Long Pauses Memory Description: Episodic Impaired Delusions: Present Perceptual Disturbances: Depersonalization and Derealization Thought Process: Distracted, Rumination and Slowed Thinking Thought Content: positive for [place], positive for Circumstantial, positive for Perseveration, positive for Poverty of Content, positive for Preoccupation, positive for Thought Blocking, positive for Slowed Thinking and positive for Evasive Depressive Symptoms: Increased Anxiety, Increased Fatigue, Loss of Energy and Difficulty Concentrating Judgement: Poor Diagnostics Vital Signs (24Hr): Vital Signs - 24 hr 01/09/25 20:00 01/10/25 08:00 01/10/25 09:30 Temperature 97.9 F 98.3 F Pulse Rate 102 H 93 Respiratory Rate 14 Blood Pressure 129/71 124/67 130/62 Pulse Oximetry 96 97 Oxygen Delivery Method Room Air Room Air 01/10/25 09:31 Temperature Pulse Rate 88 Respiratory Rate Blood Pressure 130/62 Pulse Oximetry Oxygen Delivery Method BMI result Body Mass Index 41.6 Labs 12/24/24 15:41 12/24/24 15:41 Imaging Radiology Impressions: ITS Impressions KUB X-Ray 12/14/24 16:10 IMPRESSION: No intestinal obstruction pattern. Electronically signed by: Wero Montanez MD 12/17/2024 08:14 AM EDT Medications Medications Current Medications Acetaminophen (Acetaminophen 325 Mg Tablet) 650 mg PO Q6H PRN PRN Reason: Headache/Pain, Scale 1-10 Last Admin: 12/16/24 12:01 Dose: 650 mg Al Hydroxide/Mg Hydroxide (Magnesium Hydrox/Alum Hydrox 30 Ml Oral.Susp) 30 ml PO Q6H PRN PRN Reason: Heartburn/Nausea Benztropine Mesylate (Benztropine Mesylate 1 Mg Tablet) 1 mg PO BID [facility] Last Admin: 01/10/25 09:33 Dose: 1 mg Clonidine HCl (Clonidine Hcl 0.1 Mg Tablet) 0.1 mg PO BID [facility]; Protocol Last Admin: 01/10/25 09:30 Dose: 0.1 mg Fluphenazine HCl (Fluphenazine Hcl 5 Mg Tablet) 5 mg PO DAILY PRN PRN Reason: psychosis Last Admin: 01/09/25 10:37 Dose: 5 mg Fluphenazine HCl (Fluphenazine Hcl 5 Mg Tablet) 5 mg PO QID [facility] Last Admin: 01/10/25 09:30 Dose: 5 mg Hydroxyzine HCl (Hydroxyzine Hcl 25 Mg Tablet) 25 mg PO Q6H PRN PRN Reason: mild anxiety Last Admin: 01/09/25 11:58 Dose: 25 mg Lorazepam (Lorazepam 0.5 Mg Tablet) 0.5 mg PO Q4H PRN PRN Reason: Anxiety Last Admin: 01/09/25 10:37 Dose: 0.5 mg Lorazepam (Lorazepam 1 Mg Tablet) 2 mg PO TID [facility] Last Admin: 01/10/25 08:30 Dose: 2 mg Magnesium Hydroxide (Milk Of Magnesia 30 Ml Oral.Susp) 30 ml PO DAILY PRN PRN Reason: Constipation Nicotine (Nicotine 21 Mg Patch.Td24) 21 mg TRANSDERMA DAILY PRN PRN Reason: smoking cessation Last Admin: 12/11/24 08:41 Dose: 21 mg Nicotine Polacrilex (Nicotine Polacrilex 2 Mg Gum) 4 mg BUCCAL Q2H PRN PRN Reason: Nicotine Cravings Polyethylene Glycol (Polyethylene Glycol 3350 17 Gm Powd.Pack) 17 gm PO DAILY [facility] Last Admin: 01/10/25 09:30 Dose: 17 gm Polyethylene Glycol (Polyethylene Glycol 3350 17 Gm Powd.Pack) 17 gm PO DAILY PRN PRN Reason: continued Constipation Propranolol HCl (Propranolol Hcl 10 Mg Tablet) 15 mg PO TID [facility]; Protocol Last Admin: 01/10/25 09:31 Dose: 15 mg Thiamine HCl (Thiamine Hcl 100 Mg Tablet) 200 mg PO DAILY [facility] Last Admin: 01/10/25 09:31 Dose: 200 mg Trazodone HCl (Trazodone Hcl 100 Mg Tablet) 100 mg PO BEDTIME [facility] Last Admin: 01/09/25 21:21 Dose: 100 mg Allergies Allergies Allergy/AdvReac Type Severity Reaction Status Date / Time No Known Allergies Allergy Verified 12/09/24 12:43 Assessment & Plan Assessment & Plan (1) Catatonia: Status: Acute Code(s): F06.1 - Catatonic disorder due to known physiological condition (2) Schizoaffective disorder: Status: Acute Code(s): F25.9 - Schizoaffective disorder, unspecified (3) Cannabis use disorder: Status: Acute Code(s): F12.90 - Cannabis use, unspecified, uncomplicated Plan Admit, CV, One to One-SI, Disinhbition, Acute Psychosis Diagnostics as needed Collateral contact Milieu integration as tolerated Risperdal 2 mg bid Decrease Lorazepam to 0.5 mg q4h prn (pt is disinhibited, exposing himself) Depakote-continue Clonidine-continue Chlorpromazine prn (olanzapine has not been helpful by history) 12/12: DC Risperdal, Chlorpromazine Prolixin 5 bid and tid prn psychosis Increase Lorazapam to 1 mg tid Fe, CPK, CBCD, Myoglobin, EEG, B12,Folate, TSH, Valproate 12/14: KUB Continue current regime 12/15 remains with significant catatonic symptoms 1) Increased to Ativan 2mg QID. With increased dose, patient soon talked a little bit more (Ativan initially lowered out of concern that it was disinhibiting patient who was disrobing, however it seems more likely that this behavior is due to his psychotic disorganization than to effects of Ativan; currently. primary goal is to treat catatonia). 2)Discontinued Fluphenazine (for now) out of concern for antipsychotic being contributory to catatonia (also dc'd Depakote out of an abundance of caution) -Pt had told staff he has not had BM; KUB ordered but impression pending...Ordered Mirralx since no laxative ordered. Had nose bleed this morning which resolved on its own 12/16 still catatonic but a little more activity and talking a little more; though one word answers, pt responding appropriately to questions when asks. Says no voices, but later says AH remains. 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 Continue olanzapine 5 mg daily. 12/20 increase olanzapine to 7.5 mg daily 12/21 continue tx 12/22 seems to be responding to olanzapine ? if we could lower ativan a bit 12/23- agrees to inc olanzapine to 10mg, co feels sad and ah, but less catatonic- more engagable flat affect 12/25- Decrease Lorazepam to 2 mg tid, a decrease of 2 mg. 12/26: difficult to engage. +AH; continue current tx plan. 12/29: continue plan/regime 12/30: continue plan/regime 12/31: Decrease Lorazepam to tid due to pt reports of sedation. 01/02: Decrease Lorazepam to bid due to pt reports of sedation. 01/03: Increase Propranolol to 15 mg tid-anxiety, HTN sx. Family mtg 01/07. 01/04: Continue plan/regime. 01/05 lorazepam has been decreased he doesn't seem as well- and also co not sleeping well- ah- will review dec lorazepam but for tonight try trazodone scheduled instead of prn- which would mean he would have to actively ask for it and he may not be capable of that. 01/06 -add ativan 1mg q1pm, and prn prolixin 5mg 01/07- increase ativan to 2 mg tid 01/08 Patient reports that auditory hallucinations remain and are worse today than yesterday. He said last week for some amount of time he had zero AH (seems to have been for about 1-2 days); patient said they are louder today and saying to turn [himself] off... Patient agreed to titrating Prolixin; he said taking the p.r.n. 5 mg Prolixin did help for a little bit -will increase Prolixin to 5 mg q.i.d. (up from t.i.d.) on the off chance that higher dose is beneficial. 01/09. Continue regime/plan 01/10: CBCD, CMP Decrease Prolixin to tid and prn Increase Lorazepam to QID Decrease Propranolol to 10 mg tid Reason for continued inpatient stay Substantial Risk for: rapid decompensation Time Spent With Patient Time: Total time managing care of this patient today ____ minutes.
[2025-01-10] MEDS: Propranolol HCL 10 MG TABLET PO (21:09)
[2025-01-10] MEDS: traZODone HCL 100 MG TABLET PO (21:10)
[2025-01-11 08:00] VITALS: BP 136/64; PULSE 88; RESP 16; TEMP 36.9; O2SAT 96
[2025-01-11 08:49] LABS: MANUAL DIFF FLAG NO
[2025-01-11 09:01] LABS: Basophils Absolute Auto 0.1 X10*3/uL (0.0-0.2); Basophils Percent Auto 0.6 % (0-2); Eosinophils Absolute Auto 0.1 X10*3/uL (0.0-0.4); Eosinophils Percent Auto 1.5 % (0-4); Hemoglobin 15.3 g/dl (14.0-18.0); Imm Gran Abs Auto 0.02 X10*3/uL (0.00-0.03); Imm Gran Pct Auto 0.2 % (0.0-0.4); Lymphocytes Absolute Auto 2.8 X10*3/uL (1.2-4.9); Lymphocytes Percent Auto 31.7 % (20-40); Mean Corpuscular Hemoglobin 30.5 pg (27.0-33.0); Mean Corpuscular Volume 89.8 fL (80.0-98.0); Mean Platelet Volume 9.9 fL (9.4-12.4); Monocytes Absolute Auto 0.7 X10*3/uL (0.1-1.2); Monocytes Percent Auto 7.6 % (2-11); Neutrophils Absolute Auto 5.1 x10*3/uL (2.0-8.3); Neutrophils Percent Auto 58.4 % (45-73); Platelet Count 262 X10*3/uL (160-400); Red Blood Count 5.01 X10*6/uL (4.60-5.80); Red Cell Distribution Width 12.8 % (11.0-16.0); White Blood Count 8.7 X10*3/uL (4.8-10.8)
[2025-01-11 09:05] VITALS: BP 136/64; PULSE 88
[2025-01-11] MEDS: Thiamine HCL 100 MG TABLET 200 MG PO (09:05)
[2025-01-11] MEDS: Propranolol HCL 10 MG TABLET PO ×3 (09:05→21:54)
[2025-01-11 09:06] VITALS: BP 136/67
[2025-01-11] MEDS: fluPHENAZine HCl 5 MG TABLET PO ×4 (09:06→21:55)
[2025-01-11] MEDS: LORazepam 1 MG TABLET 2 MG PO ×4 (09:06→21:54)
[2025-01-11] MEDS: cloNIDine HCL 0.1 MG TABLET PO ×2 (09:06→21:54)
[2025-01-11] MEDS: Benztropine Mesylate 1 MG TABLET PO ×2 (09:06→21:54)
[2025-01-11 09:21] LABS: Alanine Aminotransferase 37 U/L (0-40); Albumin Level 3.9 g/dL (3.5-5.0); Alkaline Phosphatase 77 U/L (39-117); Anion Gap 10 (12-20); Aspartate Amino Transferase 25 U/L (5-37); Bilirubin Total 0.6 mg/dL (0.0-1.0); Blood Urea Nitrogen 11 mg/dL (9-16); Calcium 9.5 mg/dL (8.4-10.2); Carbon Dioxide 27 mmol/L (22-29); Chloride 109 mmol/L (96-108); Creatinine Clr Calc Pharmacy 265.9; Estimated Glomerular Filt Rate > 60; Glucose Random 102 mg/dL (60-115); Potassium 4.1 mmol/L (3.3-5.1); Sodium 142 mmol/L (135-145)
[2025-01-11 16:06] VITALS: BP 139/72; PULSE 111
--- NOTE | 2025-01-11 16:36 | P.PNPSI_ITS ---
Subjective Subjective Date of Service: 01/11/25 Reason For Visit: Psychosis Subjective Notes: Conditional Voluntary Healthcare Proxy: No Guardianship: No Medical Problems Affecting Mental Status: No Interim History: Met with pt, [facility] Special Delivery Carrier, Jeanie Delatorre LCSW. 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 I am ortiz . States his mom is aware. All attempted to support pt, to discuss these as normal human actions and re- enforced his being a good person. Intermittent arm tremor- ?SE vs anxiety-inconsistent Medication Compliance: Yes Side effects from medications: Yes (??) Attending Groups: Intermittent Review of Systems Acute medical concerns: No Medical Review of Systems: unchanged Review of Systems Review of Systems Denies Mental Status Exam Mental Status Exam Patient Appearance: Fatigued Patient Orientation: Person, Place and Situation Level of Consciousness: Alert Patient Behavior: Passive, Distractible and Good Eye Contact Mood Description: Withdrawn and Depressed Affect Description: Withdrawn Patient Cognition Impaired: No Ability to Follow Directions: Fair Speech Pattern: Spontaneous Speech and Soft-Spoken Memory Description: Episodic Impaired Delusions: Present Perceptual Disturbances: Depersonalization and Derealization Thought Process: Distracted, Rumination and Slowed Thinking Thought Content: positive for [employer], positive for Circumstantial, positive for Perseveration, positive for Poverty of Content, positive for Preoccupation, positive for Thought Blocking and positive for Slowed Thinking Depressive Symptoms: Increased Anxiety and Loss of Energy Judgement: Fair Diagnostics Vital Signs (24Hr): Vital Signs - 24 hr 01/10/25 21:00 01/10/25 21:08 01/10/25 21:09 Temperature 98.3 F Pulse Rate 104 H 104 H Respiratory Rate 16 Blood Pressure 143/67 H 143/67 H 143/67 H Pulse Oximetry 97 Oxygen Delivery Method Room Air 01/11/25 08:00 01/11/25 09:05 01/11/25 09:06 Temperature 98.4 F Pulse Rate 88 88 Respiratory Rate 16 Blood Pressure 136/64 136/64 136/67 Pulse Oximetry 96 Oxygen Delivery Method Room Air 01/11/25 16:06 Temperature Pulse Rate 111 H Respiratory Rate Blood Pressure 139/72 Pulse Oximetry Oxygen Delivery Method BMI result Body Mass Index 41.6 Labs 01/11/25 08:33 01/11/25 08:33 Labs: Laboratory Results - last 48 hr 01/11/25 08:33 WBC 8.7 RBC 5.01 Hgb 15.3 Hct 45.0 MCV 89.8 MCH 30.5 MCHC 34.0 RDW 12.8 Plt Count 262 MPV 9.9 Immature Gran % (Auto) 0.2 Neut % (Auto) 58.4 Lymph % (Auto) 31.7 [place] % (Auto) 7.6 Eos % (Auto) 1.5 Baso % (Auto) 0.6 Lymph # (Auto) 2.8 [place] # (Auto) 0.7 Eos # (Auto) 0.1 Baso # (Auto) 0.1 Abs Immat Gran (auto) 0.02 Absolute Neuts (auto) 5.1 Absolute Nucleated RBC 0.000 Nucleated RBC % (auto) 0.0 Sodium 142 Potassium 4.1 Chloride 109 H Carbon Dioxide 27 Anion Gap 10 L BUN 11 Creatinine 0.63 Estim Creat Clear Calc 265.9 Estimated GFR > 60 Random Glucose 102 Calcium 9.5 Total Bilirubin 0.6 AST 25 ALT 37 Alkaline Phosphatase 77 Total Protein 7.0 Albumin 3.9 Imaging Radiology Impressions: ITS Impressions KUB X-Ray 12/14/24 16:10 IMPRESSION: No intestinal obstruction pattern. Electronically signed by: Wero Montanez MD 12/17/2024 08:14 AM EDT RP Medications Medications Current Medications Acetaminophen (Acetaminophen 325 Mg Tablet) 650 mg PO Q6H PRN PRN Reason: Headache/Pain, Scale 1-10 Last Admin: 12/16/24 12:01 Dose: 650 mg Al Hydroxide/Mg Hydroxide (Magnesium Hydrox/Alum Hydrox 30 Ml Oral.Susp) 30 ml PO Q6H PRN PRN Reason: Heartburn/Nausea Benztropine Mesylate (Benztropine Mesylate 1 Mg Tablet) 1 mg PO BID [facility] Last Admin: 01/11/25 09:06 Dose: 1 mg Clonidine HCl (Clonidine Hcl 0.1 Mg Tablet) 0.1 mg PO BID [facility]; Protocol Last Admin: 01/11/25 09:06 Dose: 0.1 mg Fluphenazine HCl (Fluphenazine Hcl 5 Mg Tablet) 5 mg PO DAILY PRN PRN Reason: psychosis Last Admin: 01/11/25 12:49 Dose: 5 mg Fluphenazine HCl (Fluphenazine Hcl 5 Mg Tablet) 5 mg PO TID [facility] Last Admin: 01/11/25 16:06 Dose: 5 mg Hydroxyzine HCl (Hydroxyzine Hcl 25 Mg Tablet) 25 mg PO Q6H PRN PRN Reason: mild anxiety Last Admin: 01/09/25 11:58 Dose: 25 mg Lorazepam (Lorazepam 0.5 Mg Tablet) 0.5 mg PO Q4H PRN PRN Reason: Anxiety Last Admin: 01/09/25 10:37 Dose: 0.5 mg Lorazepam (Lorazepam 1 Mg Tablet) 2 mg PO QID [facility] Last Admin: 01/11/25 16:06 Dose: 2 mg Magnesium Hydroxide (Milk Of Magnesia 30 Ml Oral.Susp) 30 ml PO DAILY PRN PRN Reason: Constipation Nicotine (Nicotine 21 Mg Patch.Td24) 21 mg TRANSDERMA DAILY PRN PRN Reason: smoking cessation Last Admin: 12/11/24 08:41 Dose: 21 mg Nicotine Polacrilex (Nicotine Polacrilex 2 Mg Gum) 4 mg BUCCAL Q2H PRN PRN Reason: Nicotine Cravings Ondansetron HCl (Ondansetron Odt 4 Mg Tab.Rapdis) 4 mg TRANSLINGU Q6H PRN PRN Reason: Nausea and Vomiting Polyethylene Glycol (Polyethylene Glycol 3350 17 Gm Powd.Pack) 17 gm PO DAILY [facility] Last Admin: 01/11/25 10:47 Dose: Not Given Polyethylene Glycol (Polyethylene Glycol 3350 17 Gm Powd.Pack) 17 gm PO DAILY PRN PRN Reason: continued Constipation Propranolol HCl (Propranolol Hcl 10 Mg Tablet) 10 mg PO TID [facility]; Protocol Last Admin: 01/11/25 16:06 Dose: 10 mg Thiamine HCl (Thiamine Hcl 100 Mg Tablet) 200 mg PO DAILY [facility] Last Admin: 01/11/25 09:05 Dose: 200 mg Trazodone HCl (Trazodone Hcl 100 Mg Tablet) 100 mg PO BEDTIME [facility] Last Admin: 01/10/25 21:10 Dose: 100 mg Allergies Allergies Allergy/AdvReac Type Severity Reaction Status Date / Time No Known Allergies Allergy Verified 12/09/24 12:43 Assessment & Plan Assessment & Plan (1) Catatonia: Status: Acute Code(s): F06.1 - Catatonic disorder due to known physiological condition (2) Schizoaffective disorder: Status: Acute Code(s): F25.9 - Schizoaffective disorder, unspecified (3) Cannabis use disorder: Status: Acute Code(s): F12.90 - Cannabis use, unspecified, uncomplicated Plan Admit, CV, One to One-SI, Disinhbition, Acute Psychosis Diagnostics as needed Collateral contact Milieu integration as tolerated Risperdal 2 mg bid Decrease Lorazepam to 0.5 mg q4h prn (pt is disinhibited, exposing himself) Depakote-continue Clonidine-continue Chlorpromazine prn (olanzapine has not been helpful by history) 12/12: DC Risperdal, Chlorpromazine Prolixin 5 bid and tid prn psychosis Increase Lorazapam to 1 mg tid Fe, CPK, CBCD, Myoglobin, EEG, B12,Folate, TSH, Valproate 12/14: KUB Continue current regime 12/15 remains with significant catatonic symptoms 1) Increased to Ativan 2mg QID. With increased dose, patient soon talked a little bit more (Ativan initially lowered out of concern that it was disinhibiting patient who was disrobing, however it seems more likely that this behavior is due to his psychotic disorganization than to effects of Ativan; currently. primary goal is to treat catatonia). 2)Discontinued Fluphenazine (for now) out of concern for antipsychotic being contributory to catatonia (also dc'd Depakote out of an abundance of caution) -Pt had told staff he has not had BM; KUB ordered but impression pending...Ordered Mirralx since no laxative ordered. Had nose bleed this morning which resolved on its own 12/16 still catatonic but a little more activity and talking a little more; though one word answers, pt responding appropriately to questions when asks. Says no voices, but later says AH remains. 12/17 plan change attendant the weekend-continue tx 12/19 trial of olanzapine 5 mg with a decrease in auditory perceptual alterations. Continue olanzapine 5 mg daily. 12/20 increase olanzapine to 7.5 mg daily 12/21 continue tx 12/22 seems to be responding to olanzapine ? if we could lower ativan a bit 12/23- agrees to inc olanzapine to 10mg, co feels sad and ah, but less catatonic- more engagable flat affect 12/25- Decrease Lorazepam to 2 mg tid, a decrease of 2 mg. 12/26: difficult to engage. +AH; continue current tx plan. 12/29: continue plan/regime 12/30: continue plan/regime 12/31: Decrease Lorazepam to tid due to pt reports of sedation. 01/02: Decrease Lorazepam to bid due to pt reports of sedation. 01/03: Increase Propranolol to 15 mg tid-anxiety, HTN sx. Family mtg 01/07. 01/04: Continue plan/regime. 01/05 lorazepam has been decreased he doesn't seem as well- and also co not sleeping well- ah- will review dec lorazepam but for tonight try trazodone scheduled instead of prn- which would mean he would have to actively ask for it and he may not be capable of that. 01/06 -add ativan 1mg q1pm, and prn prolixin 5mg 01/07- increase ativan to 2 mg tid 01/08 Patient reports that auditory hallucinations remain and are worse today than yesterday. He said last week for some amount of time he had zero AH (seems to have been for about 1-2 days); patient said they are louder today and saying to turn [himself] off... Patient agreed to titrating Prolixin; he said taking the p.r.n. 5 mg Prolixin did help for a little bit -will increase Prolixin to 5 mg q.i.d. (up from t.i.d.) on the off chance that higher dose is beneficial. 01/09. Continue regime/plan 01/10: CBCD, CMP Decrease Prolixin to tid and prn Increase Lorazepam to QID Decrease Propranolol to 10 mg tid 01/11: Continue tx Reason for continued inpatient stay Substantial Risk for: rapid decompensation Time Spent With Patient Time: Total time managing care of this patient today ____ minutes.
[2025-01-11] MEDS: hydrOXYzine HCL 25 MG TABLET PO (18:25)
[2025-01-11] MEDS: LORazepam 0.5 MG TABLET PO (18:25)
[2025-01-11 19:52] VITALS: BP 144/91; PULSE 101; RESP 18; TEMP 36.4; O2SAT 98
[2025-01-11] MEDS: traZODone HCL 100 MG TABLET PO (21:54)
[2025-01-12 08:13] VITALS: BP 119/65; PULSE 77; RESP 16; TEMP 36.4; O2SAT 97
[2025-01-12] MEDS: cloNIDine HCL 0.1 MG TABLET PO ×2 (08:13→20:38)
[2025-01-12] MEDS: polyethylene glycoL 3350 17 GM POWD.PACK PO (08:13)
[2025-01-12] MEDS: Propranolol HCL 10 MG TABLET PO ×3 (08:13→20:39)
[2025-01-12] MEDS: LORazepam 1 MG TABLET 2 MG PO ×4 (08:16→20:39)
[2025-01-12] MEDS: fluPHENAZine HCl 5 MG TABLET PO ×3 (08:16→20:38)
[2025-01-12] MEDS: Benztropine Mesylate 1 MG TABLET PO ×2 (08:17→20:37)
[2025-01-12] MEDS: Thiamine HCL 100 MG TABLET 200 MG PO (08:17)
--- NOTE | 2025-01-12 10:50 | HO.PSYCHPN ---
Subjective Subjective Date of Service: 01/12/25 Reason For Visit: Psychosis Subjective Notes: Conditional Voluntary Interim History: Attempted to see patient but discussed in rounds. Records and plans were reviewed. He continues to be depressed, seclusive with thought blocking. Reports auditory hallucinations. Compliant with medications. No complaints or side effects. No SI. No changes were made today Review of Systems Review of Systems Yes all other systems are reviewed and are negative Mental Status Exam Mental Status Exam Patient Appearance: Fatigued Patient Orientation: Person, Place and Situation Level of Consciousness: Alert Patient Behavior: Passive, Distractible and Good Eye Contact Mood Description: Withdrawn and Depressed Affect Description: Withdrawn Patient Cognition Impaired: No Ability to Follow Directions: Fair Speech Pattern: Spontaneous Speech and Soft-Spoken Memory Description: Episodic Impaired Delusions: Present Perceptual Disturbances: Depersonalization and Derealization Thought Process: Distracted, Rumination and Slowed Thinking Thought Content: positive for [employer], positive for Circumstantial, positive for Perseveration, positive for Poverty of Content, positive for Preoccupation, positive for Thought Blocking and positive for Slowed Thinking Depressive Symptoms: Increased Anxiety and Loss of Energy Judgement: Fair Diagnostics Vital Signs (24Hr): Vital Signs - 24 hr 01/11/25 16:06 01/11/25 19:52 01/12/25 08:13 Temperature 97.5 F Pulse Rate 111 H 101 H Respiratory Rate 18 Blood Pressure 139/72 144/91 H 119/65 Pulse Oximetry 98 Oxygen Delivery Method Room Air 01/12/25 08:13 01/12/25 08:13 Temperature 97.6 F Pulse Rate 77 77 Respiratory Rate 16 Blood Pressure 119/65 119/65 Pulse Oximetry 97 Oxygen Delivery Method Room Air BMI result Body Mass Index 41.6 Labs 01/11/25 08:33 01/11/25 08:33 Labs: Laboratory Results - last 48 hr 01/11/25 08:33 WBC 8.7 RBC 5.01 Hgb 15.3 Hct 45.0 MCV 89.8 MCH 30.5 MCHC 34.0 RDW 12.8 Plt Count 262 MPV 9.9 Immature Gran % (Auto) 0.2 Neut % (Auto) 58.4 Lymph % (Auto) 31.7 [place] % (Auto) 7.6 Eos % (Auto) 1.5 Baso % (Auto) 0.6 Lymph # (Auto) 2.8 [place] # (Auto) 0.7 Eos # (Auto) 0.1 Baso # (Auto) 0.1 Abs Immat Gran (auto) 0.02 Absolute Neuts (auto) 5.1 Absolute Nucleated RBC 0.000 Nucleated RBC % (auto) 0.0 Sodium 142 Potassium 4.1 Chloride 109 H Carbon Dioxide 27 Anion Gap 10 L BUN 11 Creatinine 0.63 Estim Creat Clear Calc 265.9 Estimated GFR > 60 Random Glucose 102 Calcium 9.5 Total Bilirubin 0.6 AST 25 ALT 37 Alkaline Phosphatase 77 Total Protein 7.0 Albumin 3.9 Imaging Radiology Impressions: ITS Impressions KUB X-Ray 12/14/24 16:10 IMPRESSION: No intestinal obstruction pattern. Electronically signed by: Wero Montanez MD 12/17/2024 08:14 AM EDT RP Medications Medications Current Medications Acetaminophen (Acetaminophen 325 Mg Tablet) 650 mg PO Q6H PRN PRN Reason: Headache/Pain, Scale 1-10 Last Admin: 12/16/24 12:01 Dose: 650 mg Al Hydroxide/Mg Hydroxide (Magnesium Hydrox/Alum Hydrox 30 Ml Oral.Susp) 30 ml PO Q6H PRN PRN Reason: Heartburn/Nausea Benztropine Mesylate (Benztropine Mesylate 1 Mg Tablet) 1 mg PO BID [facility] Last Admin: 01/12/25 08:17 Dose: 1 mg Clonidine HCl (Clonidine Hcl 0.1 Mg Tablet) 0.1 mg PO BID [facility]; Protocol Last Admin: 01/12/25 08:13 Dose: 0.1 mg Fluphenazine HCl (Fluphenazine Hcl 5 Mg Tablet) 5 mg PO DAILY PRN PRN Reason: psychosis Last Admin: 01/11/25 12:49 Dose: 5 mg Fluphenazine HCl (Fluphenazine Hcl 5 Mg Tablet) 5 mg PO TID [facility] Last Admin: 01/12/25 08:16 Dose: 5 mg Hydroxyzine HCl (Hydroxyzine Hcl 25 Mg Tablet) 25 mg PO Q6H PRN PRN Reason: mild anxiety Last Admin: 01/11/25 18:25 Dose: 25 mg Lorazepam (Lorazepam 0.5 Mg Tablet) 0.5 mg PO Q4H PRN PRN Reason: Anxiety Last Admin: 01/11/25 18:25 Dose: 0.5 mg Lorazepam (Lorazepam 1 Mg Tablet) 2 mg PO QID [facility] Last Admin: 01/12/25 08:16 Dose: 2 mg Magnesium Hydroxide (Milk Of Magnesia 30 Ml Oral.Susp) 30 ml PO DAILY PRN PRN Reason: Constipation Nicotine (Nicotine 21 Mg Patch.Td24) 21 mg TRANSDERMA DAILY PRN PRN Reason: smoking cessation Last Admin: 12/11/24 08:41 Dose: 21 mg Nicotine Polacrilex (Nicotine Polacrilex 2 Mg Gum) 4 mg BUCCAL Q2H PRN PRN Reason: Nicotine Cravings Ondansetron HCl (Ondansetron Odt 4 Mg Tab.Rapdis) 4 mg TRANSLINGU Q6H PRN PRN Reason: Nausea and Vomiting Polyethylene Glycol (Polyethylene Glycol 3350 17 Gm Powd.Pack) 17 gm PO DAILY [facility] Last Admin: 01/12/25 08:13 Dose: 17 gm Polyethylene Glycol (Polyethylene Glycol 3350 17 Gm Powd.Pack) 17 gm PO DAILY PRN PRN Reason: continued Constipation Propranolol HCl (Propranolol Hcl 10 Mg Tablet) 10 mg PO TID [facility]; Protocol Last Admin: 01/12/25 08:13 Dose: 10 mg Thiamine HCl (Thiamine Hcl 100 Mg Tablet) 200 mg PO DAILY [facility] Last Admin: 01/12/25 08:17 Dose: 200 mg Trazodone HCl (Trazodone Hcl 100 Mg Tablet) 100 mg PO BEDTIME [facility] Last Admin: 01/11/25 21:54 Dose: 100 mg Allergies Allergies Allergy/AdvReac Type Severity Reaction Status Date / Time No Known Allergies Allergy Verified 12/09/24 12:43 Assessment & Plan Assessment & Plan (1) Catatonia: Status: Acute Code(s): F06.1 - Catatonic disorder due to known physiological condition (2) Schizoaffective disorder: Status: Acute Code(s): F25.9 - Schizoaffective disorder, unspecified (3) Cannabis use disorder: Status: Acute Code(s): F12.90 - Cannabis use, unspecified, uncomplicated Plan Admit, CV, One to One-SI, Disinhbition, Acute Psychosis Diagnostics as needed Collateral contact Milieu integration as tolerated Risperdal 2 mg bid Decrease Lorazepam to 0.5 mg q4h prn (pt is disinhibited, exposing himself) Depakote-continue Clonidine-continue Chlorpromazine prn (olanzapine has not been helpful by history) 3/19: DC Risperdal, Chlorpromazine Prolixin 5 bid and tid prn psychosis Increase Lorazapam to 1 mg tid Fe, CPK, CBCD, Myoglobin, EEG, B12,Folate, TSH, Valproate 12/14: KUB Continue current regime 12/15 remains with significant catatonic symptoms 1) Increased to Ativan 2mg QID. With increased dose, patient soon talked a little bit more (Ativan initially lowered out of concern that it was disinhibiting patient who was disrobing, however it seems more likely that this behavior is due to his psychotic disorganization than to effects of Ativan; currently. primary goal is to treat catatonia). 2)Discontinued Fluphenazine (for now) out of concern for antipsychotic being contributory to catatonia (also dc'd Depakote out of an abundance of caution) -Pt had told staff he has not had BM; KUB ordered but impression pending...Ordered Mirralx since no laxative ordered. Had nose bleed this morning which resolved on its own 12/16 still catatonic but a little more activity and talking a little more; though one word answers, pt responding appropriately to questions when asks. Says no voices, but later says AH remains. 12/17 plan change management director the weekend-continue tx 12/19 trial of olanzapine 5 mg with a decrease in auditory perceptual alterations. Continue olanzapine 5 mg daily. 12/20 increase olanzapine to 7.5 mg daily 12/21 continue tx 12/22 seems to be responding to olanzapine ? if we could lower ativan a bit 12/23- agrees to inc olanzapine to 10mg, co feels sad and ah, but less catatonic- more engagable flat affect 12/25- Decrease Lorazepam to 2 mg tid, a decrease of 2 mg. 12/26: difficult to engage. +AH; continue current tx plan. 12/29: continue plan/regime 12/30: continue plan/regime 12/31: Decrease Lorazepam to tid due to pt reports of sedation. 01/02: Decrease Lorazepam to bid due to pt reports of sedation. 01/03: Increase Propranolol to 15 mg tid-anxiety, HTN sx. Family mtg 01/07. 01/04: Continue plan/regime. 01/05 lorazepam has been decreased he doesn't seem as well- and also co not sleeping well- ah- will review dec lorazepam but for tonight try trazodone scheduled instead of prn- which would mean he would have to actively ask for it and he may not be capable of that. 01/06 -add ativan 1mg q1pm, and prn prolixin 5mg 01/07- increase ativan to 2 mg tid 01/08 Patient reports that auditory hallucinations remain and are worse today than yesterday. He said last week for some amount of time he had zero AH (seems to have been for about 1-2 days); patient said they are louder today and saying to turn [himself] off... Patient agreed to titrating Prolixin; he said taking the p.r.n. 5 mg Prolixin did help for a little bit -will increase Prolixin to 5 mg q.i.d. (up from t.i.d.) on the off chance that higher dose is beneficial. 01/09. Continue regime/plan 01/10: CBCD, CMP Decrease Prolixin to tid and prn Increase Lorazepam to QID Decrease Propranolol to 10 mg tid 01/11: Continue tx Reason for continued inpatient stay Substantial Risk for: med/psych decompensation Time Spent With Patient Time: Total time managing care of this patient today ____ minutes.
[2025-01-12 15:44] VITALS: BP 107/80; PULSE 101
[2025-01-12 19:59] VITALS: BP 131/79; PULSE 107; RESP 18; TEMP 36.3; O2SAT 98
[2025-01-12] MEDS: traZODone HCL 100 MG TABLET PO (20:40)
[2025-01-13 08:21] VITALS: BP 124/77; PULSE 91; TEMP 37.3; O2SAT 97
[2025-01-13] MEDS: Benztropine Mesylate 1 MG TABLET PO ×2 (08:36→20:53)
[2025-01-13] MEDS: polyethylene glycoL 3350 17 GM POWD.PACK PO (08:36)
[2025-01-13] MEDS: LORazepam 1 MG TABLET 2 MG PO ×4 (08:36→20:53)
[2025-01-13] MEDS: Propranolol HCL 10 MG TABLET PO ×3 (08:36→20:54)
[2025-01-13] MEDS: Thiamine HCL 100 MG TABLET 200 MG PO (08:36)
[2025-01-13] MEDS: fluPHENAZine HCl 5 MG TABLET PO ×3 (08:36→20:53)
[2025-01-13] MEDS: cloNIDine HCL 0.1 MG TABLET PO ×2 (08:36→20:53)
--- NOTE | 2025-01-13 09:49 | P.PNPSI_ITS ---
Subjective Subjective Date of Service: 01/13/25 Reason For Visit: Psychosis Subjective Notes: Conditional Voluntary Interim History: Attempted to see patient but discussed in rounds. Records and plans were reviewed. He has been stable with continued depression. Pleasant. Continues to have auditory hallucinations. No SI. Eating and sleeping adequately. No side effects. No changes were made today Mental Status Exam Mental Status Exam Patient Appearance: Fatigued Patient Orientation: Person, Place and Situation Level of Consciousness: Alert Patient Behavior: Passive, Distractible and Good Eye Contact Mood Description: Withdrawn and Depressed Affect Description: Withdrawn Patient Cognition Impaired: No Ability to Follow Directions: Fair Speech Pattern: Spontaneous Speech and Soft-Spoken Memory Description: Episodic Impaired Delusions: Present Perceptual Disturbances: Depersonalization and Derealization Thought Process: Distracted, Rumination and Slowed Thinking Thought Content: positive for [place], positive for Circumstantial, positive for Perseveration, positive for Poverty of Content, positive for Preoccupation, positive for Thought Blocking and positive for Slowed Thinking Depressive Symptoms: Increased Anxiety and Loss of Energy Judgement: Fair Diagnostics Vital Signs (24Hr): Vital Signs - 24 hr 01/12/25 15:44 01/12/25 19:59 01/13/25 08:21 Temperature 97.3 F 99.1 F Pulse Rate 101 H 107 H 91 Respiratory Rate 18 Blood Pressure 107/80 131/79 124/77 Pulse Oximetry 98 97 Oxygen Delivery Method Room Air Room Air BMI result Body Mass Index 41.6 Labs 01/11/25 08:33 01/11/25 08:33 Imaging Radiology Impressions: ITS Impressions KUB X-Ray 12/14/24 16:10 IMPRESSION: No intestinal obstruction pattern. Electronically signed by: Wero Montanez MD 12/17/2024 08:14 AM EDT Medications Medications Current Medications Acetaminophen (Acetaminophen 325 Mg Tablet) 650 mg PO Q6H PRN PRN Reason: Headache/Pain, Scale 1-10 Last Admin: 12/16/24 12:01 Dose: 650 mg Al Hydroxide/Mg Hydroxide (Magnesium Hydrox/Alum Hydrox 30 Ml Oral.Susp) 30 ml PO Q6H PRN PRN Reason: Heartburn/Nausea Benztropine Mesylate (Benztropine Mesylate 1 Mg Tablet) 1 mg PO BID [facility] Last Admin: 01/13/25 08:36 Dose: 1 mg Clonidine HCl (Clonidine Hcl 0.1 Mg Tablet) 0.1 mg PO BID [facility]; Protocol Last Admin: 01/13/25 08:36 Dose: 0.1 mg Fluphenazine HCl (Fluphenazine Hcl 5 Mg Tablet) 5 mg PO DAILY PRN PRN Reason: psychosis Last Admin: 01/11/25 12:49 Dose: 5 mg Fluphenazine HCl (Fluphenazine Hcl 5 Mg Tablet) 5 mg PO TID [facility] Last Admin: 01/13/25 08:36 Dose: 5 mg Hydroxyzine HCl (Hydroxyzine Hcl 25 Mg Tablet) 25 mg PO Q6H PRN PRN Reason: mild anxiety Last Admin: 01/11/25 18:25 Dose: 25 mg Lorazepam (Lorazepam 0.5 Mg Tablet) 0.5 mg PO Q4H PRN PRN Reason: Anxiety Last Admin: 01/11/25 18:25 Dose: 0.5 mg Lorazepam (Lorazepam 1 Mg Tablet) 2 mg PO QID [facility] Last Admin: 01/13/25 08:36 Dose: 2 mg Magnesium Hydroxide (Milk Of Magnesia 30 Ml Oral.Susp) 30 ml PO DAILY PRN PRN Reason: Constipation Nicotine (Nicotine 21 Mg Patch.Td24) 21 mg TRANSDERMA DAILY PRN PRN Reason: smoking cessation Last Admin: 12/11/24 08:41 Dose: 21 mg Nicotine Polacrilex (Nicotine Polacrilex 2 Mg Gum) 4 mg BUCCAL Q2H PRN PRN Reason: Nicotine Cravings Ondansetron HCl (Ondansetron Odt 4 Mg Tab.Rapdis) 4 mg TRANSLINGU Q6H PRN PRN Reason: Nausea and Vomiting Polyethylene Glycol (Polyethylene Glycol 3350 17 Gm Powd.Pack) 17 gm PO DAILY [facility] Last Admin: 01/13/25 08:36 Dose: 17 gm Polyethylene Glycol (Polyethylene Glycol 3350 17 Gm Powd.Pack) 17 gm PO DAILY PRN PRN Reason: continued Constipation Propranolol HCl (Propranolol Hcl 10 Mg Tablet) 10 mg PO TID [facility]; Protocol Last Admin: 01/13/25 08:36 Dose: 10 mg Thiamine HCl (Thiamine Hcl 100 Mg Tablet) 200 mg PO DAILY [facility] Last Admin: 01/13/25 08:36 Dose: 200 mg Trazodone HCl (Trazodone Hcl 100 Mg Tablet) 100 mg PO BEDTIME [facility] Last Admin: 01/12/25 20:40 Dose: 100 mg Allergies Allergies Allergy/AdvReac Type Severity Reaction Status Date / Time No Known Allergies Allergy Verified 12/09/24 12:43 Assessment & Plan Assessment & Plan (1) Catatonia: Status: Acute Code(s): F06.1 - Catatonic disorder due to known physiological condition (2) Schizoaffective disorder: Status: Acute Code(s): F25.9 - Schizoaffective disorder, unspecified (3) Cannabis use disorder: Status: Acute Code(s): F12.90 - Cannabis use, unspecified, uncomplicated Plan Admit, CV, One to One-SI, Disinhbition, Acute Psychosis Diagnostics as needed Collateral contact Milieu integration as tolerated Risperdal 2 mg bid Decrease Lorazepam to 0.5 mg q4h prn (pt is disinhibited, exposing himself) Depakote-continue Clonidine-continue Chlorpromazine prn (olanzapine has not been helpful by history) 12/12: DC Risperdal, Chlorpromazine Prolixin 5 bid and tid prn psychosis Increase Lorazapam to 1 mg tid Fe, CPK, CBCD, Myoglobin, EEG, B12,Folate, TSH, Valproate 12/14: KUB Continue current regime 12/15 remains with significant catatonic symptoms 1) Increased to Ativan 2mg QID. With increased dose, patient soon talked a little bit more (Ativan initially lowered out of concern that it was disinhibiting patient who was disrobing, however it seems more likely that this behavior is due to his psychotic disorganization than to effects of Ativan; currently. primary goal is to treat catatonia). 2)Discontinued Fluphenazine (for now) out of concern for antipsychotic being contributory to catatonia (also dc'd Depakote out of an abundance of caution) -Pt had told staff he has not had BM; KUB ordered but impression pending...Ordered Mirralx since no laxative ordered. Had nose bleed this morning which resolved on its own 12/16 still catatonic but a little more activity and talking a little more; though one word answers, pt responding appropriately to questions when asks. Says no voices, but later says AH remains. 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 Continue olanzapine 5 mg daily. 12/20 increase olanzapine to 7.5 mg daily 12/21 continue tx 12/22 seems to be responding to olanzapine ? if we could lower ativan a bit 12/23- agrees to inc olanzapine to 10mg, co feels sad and ah, but less catatonic- more engagable flat affect 12/25- Decrease Lorazepam to 2 mg tid, a decrease of 2 mg. 12/26: difficult to engage. +AH; continue current tx plan. 12/29: continue plan/regime 12/30: continue plan/regime 12/31: Decrease Lorazepam to tid due to pt reports of sedation. 01/02: Decrease Lorazepam to bid due to pt reports of sedation. 01/03: Increase Propranolol to 15 mg tid-anxiety, HTN sx. Family mtg 01/07. 01/04: Continue plan/regime. 01/05 lorazepam has been decreased he doesn't seem as well- and also co not sleeping well- ah- will review dec lorazepam but for tonight try trazodone scheduled instead of prn- which would mean he would have to actively ask for it and he may not be capable of that. 01/06 -add ativan 1mg q1pm, and prn prolixin 5mg 01/07- increase ativan to 2 mg tid 01/08 Patient reports that auditory hallucinations remain and are worse today than yesterday. He said last week for some amount of time he had zero AH (seems to have been for about 1-2 days); patient said they are louder today and saying to turn [himself] off... Patient agreed to titrating Prolixin; he said taking the p.r.n. 5 mg Prolixin did help for a little bit -will increase Prolixin to 5 mg q.i.d. (up from t.i.d.) on the off chance that higher dose is beneficial. 01/09. Continue regime/plan 01/10: CBCD, CMP Decrease Prolixin to tid and prn Increase Lorazepam to QID Decrease Propranolol to 10 mg tid 01/11: Continue tx 01/13: Continue current plans and regimen Reason for continued inpatient stay Substantial Risk for: med/psych decompensation Time Spent With Patient Time: Total time managing care of this patient today ____ minutes.
[2025-01-13] MEDS: hydrOXYzine HCL 25 MG TABLET PO (13:52)
[2025-01-13 15:07] VITALS: BP 143/88; PULSE 119
[2025-01-13 20:00] VITALS: BP 136/68; PULSE 111; RESP 16; TEMP 36.8; O2SAT 96
[2025-01-13] MEDS: traZODone HCL 100 MG TABLET PO (20:53)
[2025-01-14 07:57] VITALS: BP 139/75; PULSE 90; RESP 18; TEMP 36.9; O2SAT 96
[2025-01-14] MEDS: Propranolol HCL 10 MG TABLET PO ×3 (08:25→21:50)
[2025-01-14] MEDS: fluPHENAZine HCl 5 MG TABLET PO ×4 (08:26→21:50)
[2025-01-14] MEDS: LORazepam 1 MG TABLET 2 MG PO ×4 (08:26→21:48)
[2025-01-14] MEDS: Thiamine HCL 100 MG TABLET 200 MG PO (08:26)
[2025-01-14] MEDS: cloNIDine HCL 0.1 MG TABLET PO ×2 (08:27→21:49)
--- NOTE | 2025-01-14 09:55 | HO.PSYCHPN ---
Subjective Subjective Date of Service: 01/14/25 Reason For Visit: Psychosis Interim History: met with patient; discussed with team; reviewed chart No change in presentation. Patient remains internally preoccupied; reports continues to tell him to turn off patient denies plan/intention Affect remains mostly a combination of blunted and anxious Mental Status Exam Mental Status Exam Patient Appearance: Unkempt Patient Orientation: Person, Place and Situation Level of Consciousness: Alert Patient Behavior: Cooperative, Anxious and Good Eye Contact Mood Description: Depressed and Anxious Affect Description: Apprehensive Patient Cognition Impaired: No Ability to Follow Directions: Good Speech Pattern: Spontaneous Speech and Soft-Spoken Memory Description: Intact Hallucinations: Auditory Delusions: Paranoid Ideation and Present Thought Process: Rumination Thought Content: positive for [place], positive for Circumstantial, positive for Perseveration, positive for Poverty of Content and positive for Preoccupation Depressive Symptoms: Increased Anxiety, Insomnia, Difficulty Sleeping, Unhappiness, Increased Fatigue, Loss of Energy and Difficulty Concentrating Judgement and Insight: impaired Diagnostics Vital Signs (24Hr): Vital Signs - 24 hr 01/13/25 15:07 01/13/25 20:00 01/14/25 07:57 Temperature 98.3 F 98.5 F Pulse Rate 119 H 111 H 90 Respiratory Rate 16 18 Blood Pressure 143/88 H 136/68 139/75 Pulse Oximetry 96 96 Oxygen Delivery Method Room Air Room Air BMI result Body Mass Index 41.6 Labs 01/11/25 08:33 01/11/25 08:33 Imaging Radiology Impressions: ITS Impressions KUB X-Ray 12/14/24 16:10 IMPRESSION: No intestinal obstruction pattern. Electronically signed by: Wero Montanez MD 12/17/2024 08:14 AM EDT Medications Medications Current Medications Acetaminophen (Acetaminophen 325 Mg Tablet) 650 mg PO Q6H PRN PRN Reason: Headache/Pain, Scale 1-10 Last Admin: 12/16/24 12:01 Dose: 650 mg Al Hydroxide/Mg Hydroxide (Magnesium Hydrox/Alum Hydrox 30 Ml Oral.Susp) 30 ml PO Q6H PRN PRN Reason: Heartburn/Nausea Benztropine Mesylate (Benztropine Mesylate 1 Mg Tablet) 1 mg PO BID [facility] Last Admin: 01/13/25 20:53 Dose: 1 mg Clonidine HCl (Clonidine Hcl 0.1 Mg Tablet) 0.1 mg PO BID [facility]; Protocol Last Admin: 01/14/25 08:27 Dose: 0.1 mg Fluphenazine HCl (Fluphenazine Hcl 5 Mg Tablet) 5 mg PO DAILY PRN PRN Reason: psychosis Last Admin: 01/11/25 12:49 Dose: 5 mg Fluphenazine HCl (Fluphenazine Hcl 5 Mg Tablet) 5 mg PO TID [facility] Last Admin: 01/14/25 08:26 Dose: 5 mg Hydroxyzine HCl (Hydroxyzine Hcl 25 Mg Tablet) 25 mg PO Q6H PRN PRN Reason: mild anxiety Last Admin: 01/13/25 13:52 Dose: 25 mg Lorazepam (Lorazepam 0.5 Mg Tablet) 0.5 mg PO Q4H PRN PRN Reason: Anxiety Last Admin: 01/11/25 18:25 Dose: 0.5 mg Lorazepam (Lorazepam 1 Mg Tablet) 2 mg PO QID [facility] Last Admin: 01/14/25 08:26 Dose: 2 mg Magnesium Hydroxide (Milk Of Magnesia 30 Ml Oral.Susp) 30 ml PO DAILY PRN PRN Reason: Constipation Nicotine (Nicotine 21 Mg Patch.Td24) 21 mg TRANSDERMA DAILY PRN PRN Reason: smoking cessation Last Admin: 12/11/24 08:41 Dose: 21 mg Nicotine Polacrilex (Nicotine Polacrilex 2 Mg Gum) 4 mg BUCCAL Q2H PRN PRN Reason: Nicotine Cravings Ondansetron HCl (Ondansetron Odt 4 Mg Tab.Rapdis) 4 mg TRANSLINGU Q6H PRN PRN Reason: Nausea and Vomiting Polyethylene Glycol (Polyethylene Glycol 3350 17 Gm Powd.Pack) 17 gm PO DAILY [facility] Last Admin: 01/14/25 08:32 Dose: Not Given Polyethylene Glycol (Polyethylene Glycol 3350 17 Gm Powd.Pack) 17 gm PO DAILY PRN PRN Reason: continued Constipation Propranolol HCl (Propranolol Hcl 10 Mg Tablet) 10 mg PO TID [facility]; Protocol Last Admin: 01/14/25 08:25 Dose: 10 mg Thiamine HCl (Thiamine Hcl 100 Mg Tablet) 200 mg PO DAILY [facility] Last Admin: 01/14/25 08:26 Dose: 200 mg Trazodone HCl (Trazodone Hcl 100 Mg Tablet) 100 mg PO BEDTIME [facility] Last Admin: 01/13/25 20:53 Dose: 100 mg Allergies Allergies Allergy/AdvReac Type Severity Reaction Status Date / Time No Known Allergies Allergy Verified 12/09/24 12:43 Assessment & Plan Assessment & Plan (1) Schizoaffective disorder: Status: Acute Code(s): F25.9 - Schizoaffective disorder, unspecified (2) Catatonia: Status: Acute Code(s): F06.1 - Catatonic disorder due to known physiological condition (3) Cannabis use disorder: Status: Acute Code(s): F12.90 - Cannabis use, unspecified, uncomplicated Plan Admit, CV, One to One-SI, Disinhbition, Acute Psychosis Diagnostics as needed Collateral contact Milieu integration as tolerated Risperdal 2 mg bid Decrease Lorazepam to 0.5 mg q4h prn (pt is disinhibited, exposing himself) Depakote-continue Clonidine-continue Chlorpromazine prn (olanzapine has not been helpful by history) 12/12: DC Risperdal, Chlorpromazine Prolixin 5 bid and tid prn psychosis Increase Lorazapam to 1 mg tid Fe, CPK, CBCD, Myoglobin, EEG, B12,Folate, TSH, Valproate 12/14: KUB Continue current regime 12/15 remains with significant catatonic symptoms 1) Increased to Ativan 2mg QID. With increased dose, patient soon talked a little bit more (Ativan initially lowered out of concern that it was disinhibiting patient who was disrobing, however it seems more likely that this behavior is due to his psychotic disorganization than to effects of Ativan; currently. primary goal is to treat catatonia). 2)Discontinued Fluphenazine (for now) out of concern for antipsychotic being contributory to catatonia (also dc'd Depakote out of an abundance of caution) -Pt had told staff he has not had BM; KUB ordered but impression pending...Ordered Mirralx since no laxative ordered. Had nose bleed this morning which resolved on its own 12/16 still catatonic but a little more activity and talking a little more; though one word answers, pt responding appropriately to questions when asks. Says no voices, but later says AH remains. 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 Continue olanzapine 5 mg daily. 12/20 increase olanzapine to 7.5 mg daily 12/21 continue tx 12/22 seems to be responding to olanzapine ? if we could lower ativan a bit 12/23- agrees to inc olanzapine to 10mg, co feels sad and ah, but less catatonic- more engagable flat affect 12/25- Decrease Lorazepam to 2 mg tid, a decrease of 2 mg. 12/26: difficult to engage. +AH; continue current tx plan. 12/29: continue plan/regime 12/30: continue plan/regime 12/31: Decrease Lorazepam to tid due to pt reports of sedation. 01/02: Decrease Lorazepam to bid due to pt reports of sedation. 01/03: Increase Propranolol to 15 mg tid-anxiety, HTN sx. Family mtg 01/07. 01/04: Continue plan/regime. 01/05 lorazepam has been decreased he doesn't seem as well- and also co not sleeping well- ah- will review dec lorazepam but for tonight try trazodone scheduled instead of prn- which would mean he would have to actively ask for it and he may not be capable of that. 01/06 -add ativan 1mg q1pm, and prn prolixin 5mg 01/07- increase ativan to 2 mg tid 01/08 Patient reports that auditory hallucinations remain and are worse today than yesterday. He said last week for some amount of time he had zero AH (seems to have been for about 1-2 days); patient said they are louder today and saying to turn [himself] off... Patient agreed to titrating Prolixin; he said taking the p.r.n. 5 mg Prolixin did help for a little bit -will increase Prolixin to 5 mg q.i.d. (up from t.i.d.) on the off chance that higher dose is beneficial. 01/09. Continue regime/plan 01/10: CBCD, CMP Decrease Prolixin to tid and prn Increase Lorazepam to QID Decrease Propranolol to 10 mg tid 01/11: Continue tx 01/13: Continue current plans and regimen 01/14 No change in presentation. Patient remains internally preoccupied; reports AH continues to tell him to turn off patient denies plan/intention Affect remains mostly a combination of blunted and anxious -continue current treatment plan for now -consider Clozaril? ECT? Reason for continued inpatient stay Substantial Risk for: inability to function Time Spent With Patient Time: Total time managing care of this patient today ____ minutes.
[2025-01-14] MEDS: Benztropine Mesylate 1 MG TABLET PO ×2 (10:45→21:50)
[2025-01-14 14:23] VITALS: BP 150/84; PULSE 127
[2025-01-14] MEDS: Ondansetron ODT 4 MG TAB.RAPDIS TRANSLINGU (17:39)
[2025-01-14 20:00] VITALS: BP 131/79; PULSE 99; RESP 16; TEMP 36.8; O2SAT 99
[2025-01-14 21:49] VITALS: BP 144/73
[2025-01-14 21:50] VITALS: BP 144/73; PULSE 107
[2025-01-14] MEDS: traZODone HCL 100 MG TABLET PO (21:50)
[2025-01-15 08:00] VITALS: BP 108/51; PULSE 90; RESP 18; TEMP 37; O2SAT 96
[2025-01-15] MEDS: Propranolol HCL 10 MG TABLET PO ×3 (08:27→20:31)
[2025-01-15] MEDS: Thiamine HCL 100 MG TABLET 200 MG PO (08:28)
[2025-01-15] MEDS: LORazepam 1 MG TABLET 2 MG PO ×4 (08:28→20:32)
[2025-01-15] MEDS: fluPHENAZine HCl 5 MG TABLET PO ×4 (08:29→22:48)
[2025-01-15] MEDS: cloNIDine HCL 0.1 MG TABLET PO ×2 (08:29→20:32)
[2025-01-15] MEDS: Benztropine Mesylate 1 MG TABLET PO ×2 (08:29→20:31)
--- NOTE | 2025-01-15 15:12 | HO.PSYCHPN ---
Subjective Subjective Date of Service: 01/15/25 Reason For Visit: Psychosis Subjective Notes: Conditional Voluntary Healthcare Proxy: No Guardianship: No Medical Problems Affecting Mental Status: No Interim History: Seen with the intrepreter. Reports the weekend was bad . Voices continue to tell him to turn off without SI, plan, intent. Reports visits were good with mother. Pt reports he is not attending process groups, only art and fresh air break. Encouraged to try to attend process groups and discuss concerns which he identified last week, along with feelings he is having. He states he will try. Medication Compliance: Yes Side effects from medications: No Attending Groups: Intermittent Review of Systems Acute medical concerns: No Review of Systems Review of Systems Denies Mental Status Exam Mental Status Exam Patient Appearance: Disheveled Patient Orientation: Person, Place, Time and Situation Level of Consciousness: Alert Patient Behavior: Guarded, Talkative, Cooperative, Anxious, Distractible and Good Eye Contact Mood Description: Withdrawn and Apprehensive Affect Description: Withdrawn and Apprehensive Patient Cognition Impaired: No Ability to Follow Directions: Good Speech Pattern: Spontaneous Speech Memory Description: Episodic Impaired Hallucinations: Auditory Delusions: Present Perceptual Disturbances: Depersonalization and Derealization Thought Process: Rumination Thought Content: positive for Circumstantial and positive for Perseveration Judgement: Fair Diagnostics Vital Signs (24Hr): Vital Signs - 24 hr 01/14/25 20:00 01/14/25 21:49 01/14/25 21:50 Temperature 98.3 F Pulse Rate 99 107 H Respiratory Rate 16 Blood Pressure 131/79 144/73 H 144/73 H Pulse Oximetry 99 Oxygen Delivery Method Room Air 01/15/25 08:00 Temperature 98.6 F Pulse Rate 90 Respiratory Rate 18 Blood Pressure 108/51 L Pulse Oximetry 96 Oxygen Delivery Method Room Air BMI result Body Mass Index 41.6 Labs 01/11/25 08:33 01/11/25 08:33 Imaging Radiology Impressions: ITS Impressions KUB X-Ray 12/14/24 16:10 IMPRESSION: No intestinal obstruction pattern. Electronically signed by: Wero Montanez MD 12/17/2024 08:14 AM EDT Medications Medications Current Medications Acetaminophen (Acetaminophen 325 Mg Tablet) 650 mg PO Q6H PRN PRN Reason: Headache/Pain, Scale 1-10 Last Admin: 12/16/24 12:01 Dose: 650 mg Al Hydroxide/Mg Hydroxide (Magnesium Hydrox/Alum Hydrox 30 Ml Oral.Susp) 30 ml PO Q6H PRN PRN Reason: Heartburn/Nausea Benztropine Mesylate (Benztropine Mesylate 1 Mg Tablet) 1 mg PO BID [facility] Last Admin: 01/15/25 08:29 Dose: 1 mg Clonidine HCl (Clonidine Hcl 0.1 Mg Tablet) 0.1 mg PO BID [facility]; Protocol Last Admin: 01/15/25 08:29 Dose: 0.1 mg Fluphenazine HCl (Fluphenazine Hcl 5 Mg Tablet) 5 mg PO DAILY PRN PRN Reason: psychosis Last Admin: 01/14/25 14:23 Dose: 5 mg Fluphenazine HCl (Fluphenazine Hcl 5 Mg Tablet) 5 mg PO TID [facility] Last Admin: 01/15/25 08:29 Dose: 5 mg Hydroxyzine HCl (Hydroxyzine Hcl 25 Mg Tablet) 25 mg PO Q6H PRN PRN Reason: mild anxiety Last Admin: 01/13/25 13:52 Dose: 25 mg Lorazepam (Lorazepam 0.5 Mg Tablet) 0.5 mg PO Q4H PRN PRN Reason: Anxiety Last Admin: 01/11/25 18:25 Dose: 0.5 mg Lorazepam (Lorazepam 1 Mg Tablet) 2 mg PO QID [facility] Last Admin: 01/15/25 13:28 Dose: 2 mg Magnesium Hydroxide (Milk Of Magnesia 30 Ml Oral.Susp) 30 ml PO DAILY PRN PRN Reason: Constipation Nicotine (Nicotine 21 Mg Patch.Td24) 21 mg TRANSDERMA DAILY PRN PRN Reason: smoking cessation Last Admin: 12/11/24 08:41 Dose: 21 mg Nicotine Polacrilex (Nicotine Polacrilex 2 Mg Gum) 4 mg BUCCAL Q2H PRN PRN Reason: Nicotine Cravings Ondansetron HCl (Ondansetron Odt 4 Mg Tab.Rapdis) 4 mg TRANSLINGU Q6H PRN PRN Reason: Nausea and Vomiting Last Admin: 01/14/25 17:39 Dose: 4 mg Polyethylene Glycol (Polyethylene Glycol 3350 17 Gm Powd.Pack) 17 gm PO DAILY [facility] Last Admin: 01/15/25 08:29 Dose: Not Given Polyethylene Glycol (Polyethylene Glycol 3350 17 Gm Powd.Pack) 17 gm PO DAILY PRN PRN Reason: continued Constipation Propranolol HCl (Propranolol Hcl 10 Mg Tablet) 10 mg PO TID [facility]; Protocol Last Admin: 01/15/25 08:27 Dose: 10 mg Thiamine HCl (Thiamine Hcl 100 Mg Tablet) 200 mg PO DAILY [facility] Last Admin: 01/15/25 08:28 Dose: 200 mg Trazodone HCl (Trazodone Hcl 100 Mg Tablet) 100 mg PO BEDTIME [facility] Last Admin: 01/14/25 21:50 Dose: 100 mg Allergies Allergies Allergy/AdvReac Type Severity Reaction Status Date / Time No Known Allergies Allergy Verified 12/09/24 12:43 Assessment & Plan Assessment & Plan (1) Schizoaffective disorder: Status: Acute Code(s): F25.9 - Schizoaffective disorder, unspecified (2) Catatonia: Status: Acute Code(s): F06.1 - Catatonic disorder due to known physiological condition (3) Cannabis use disorder: Status: Acute Code(s): F12.90 - Cannabis use, unspecified, uncomplicated Plan Admit, CV, One to One-SI, Disinhbition, Acute Psychosis Diagnostics as needed Collateral contact Milieu integration as tolerated Risperdal 2 mg bid Decrease Lorazepam to 0.5 mg q4h prn (pt is disinhibited, exposing himself) Depakote-continue Clonidine-continue Chlorpromazine prn (olanzapine has not been helpful by history) 12/12: DC Risperdal, Chlorpromazine Prolixin 5 bid and tid prn psychosis Increase Lorazapam to 1 mg tid Fe, CPK, CBCD, Myoglobin, EEG, B12,Folate, TSH, Valproate 12/14: KUB Continue current regime 12/15 remains with significant catatonic symptoms 1) Increased to Ativan 2mg QID. With increased dose, patient soon talked a little bit more (Ativan initially lowered out of concern that it was disinhibiting patient who was disrobing, however it seems more likely that this behavior is due to his psychotic disorganization than to effects of Ativan; currently. primary goal is to treat catatonia). 2)Discontinued Fluphenazine (for now) out of concern for antipsychotic being contributory to catatonia (also dc'd Depakote out of an abundance of caution) -Pt had told staff he has not had BM; KUB ordered but impression pending...Ordered Mirralx since no laxative ordered. Had nose bleed this morning which resolved on its own 12/16 still catatonic but a little more activity and talking a little more; though one word answers, pt responding appropriately to questions when asks. Says no voices, but later says AH remains. 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 Continue olanzapine 5 mg daily. 12/20 increase olanzapine to 7.5 mg daily 12/21 continue tx 12/22 seems to be responding to olanzapine ? if we could lower ativan a bit 12/23- agrees to inc olanzapine to 10mg, co feels sad and ah, but less catatonic- more engagable flat affect 12/25- Decrease Lorazepam to 2 mg tid, a decrease of 2 mg. 12/26: difficult to engage. +AH; continue current tx plan. 12/29: continue plan/regime 12/30: continue plan/regime 12/31: Decrease Lorazepam to tid due to pt reports of sedation. 01/02: Decrease Lorazepam to bid due to pt reports of sedation. 01/03: Increase Propranolol to 15 mg tid-anxiety, HTN sx. Family mtg 01/07. 01/04: Continue plan/regime. 01/05 lorazepam has been decreased he doesn't seem as well- and also co not sleeping well- ah- will review dec lorazepam but for tonight try trazodone scheduled instead of prn- which would mean he would have to actively ask for it and he may not be capable of that. 01/06 -add ativan 1mg q1pm, and prn prolixin 5mg 01/07- increase ativan to 2 mg tid 01/08 Patient reports that auditory hallucinations remain and are worse today than yesterday. He said last week for some amount of time he had zero AH (seems to have been for about 1-2 days); patient said they are louder today and saying to turn [himself] off... Patient agreed to titrating Prolixin; he said taking the p.r.n. 5 mg Prolixin did help for a little bit -will increase Prolixin to 5 mg q.i.d. (up from t.i.d.) on the off chance that higher dose is beneficial. 01/09. Continue regime/plan 01/10: CBCD, CMP Decrease Prolixin to tid and prn Increase Lorazepam to QID Decrease Propranolol to 10 mg tid 01/11: Continue tx 01/13: Continue current plans and regimen 01/14 No change in presentation. Patient remains internally preoccupied; reports continues to tell him to turn off patient denies plan/intention Affect remains mostly a combination of blunted and anxious -continue current treatment plan for now -consider Clozaril? ECT? Reason for continued inpatient stay Substantial Risk for: rapid decompensation Time Spent With Patient Time: Total time managing care of this patient today ____ minutes.
[2025-01-15 16:54] VITALS: BP 116/74; PULSE 124
[2025-01-15 20:00] VITALS: BP 134/89; PULSE 114; RESP 16; TEMP 36.7; O2SAT 97
[2025-01-15 20:31] VITALS: BP 134/87; PULSE 114
[2025-01-15] MEDS: traZODone HCL 100 MG TABLET PO (20:31)
[2025-01-15 20:32] VITALS: BP 134/89
[2025-01-15] MEDS: hydrOXYzine HCL 25 MG TABLET PO (22:48)
[2025-01-16 07:55] VITALS: BP 132/66; PULSE 118; TEMP 36.6; O2SAT 97
[2025-01-16] MEDS: fluPHENAZine HCl 5 MG TABLET PO ×3 (08:32→20:36)
[2025-01-16] MEDS: LORazepam 1 MG TABLET 2 MG PO ×4 (08:32→20:37)
[2025-01-16] MEDS: polyethylene glycoL 3350 17 GM POWD.PACK PO (08:32)
[2025-01-16 08:33] VITALS: BP 132/66; PULSE 118; TEMP 36.6; O2SAT 97
[2025-01-16] MEDS: cloNIDine HCL 0.1 MG TABLET PO ×2 (08:33→20:36)
[2025-01-16] MEDS: Propranolol HCL 10 MG TABLET PO ×3 (08:33→20:36)
[2025-01-16] MEDS: Benztropine Mesylate 1 MG TABLET PO ×2 (08:33→20:36)
[2025-01-16] MEDS: Thiamine HCL 100 MG TABLET 200 MG PO (08:33)
[2025-01-16 09:00] VITALS: PULSE 98
--- NOTE | 2025-01-16 10:02 | HO.PSYCHPN ---
Subjective Subjective Date of Service: 01/16/25 Reason For Visit: Psychosis Subjective Notes: Conditional Voluntary Healthcare Proxy: No Guardianship: No Medical Problems Affecting Mental Status: No Interim History: Denies SI,HI. Affirms AH, Denies VH. No sx of acute regla or psychosis. Discussed discharge, which pt is interested in. Reports he will be safe to go home, will take medications as directed, will not engage in cannabis use. He thinks anxiety will decrease if he is back with his family. He is aware he may call/return at any time and wants to trial returning to home/family. Medication Compliance: Yes Side effects from medications: No Attending Groups: Yes Review of Systems Acute medical concerns: No Review of Systems Review of Systems denies today Mental Status Exam Mental Status Exam Patient Appearance: Disheveled Patient Orientation: Person, Place, Time and Situation Level of Consciousness: Alert Patient Behavior: Talkative, Cooperative, Anxious, Distractible and Good Eye Contact Mood Description: Withdrawn and Apprehensive Affect Description: Withdrawn and Apprehensive Patient Cognition Impaired: No Ability to Follow Directions: Good Speech Pattern: Spontaneous Speech Memory Description: Episodic Impaired Hallucinations: Auditory Perceptual Disturbances: Depersonalization and Derealization Thought Process: Rumination Thought Content: positive for Circumstantial and positive for Perseveration Depressive Symptoms: Increased Anxiety, Diff. Making Decisions and Thoughts of /Suicide (denies) Judgement: Fair Diagnostics Vital Signs (24Hr): Vital Signs - 24 hr 01/15/25 16:54 01/15/25 20:00 01/15/25 20:31 Temperature 98.0 F Pulse Rate 124 H 114 H 114 H Respiratory Rate 16 Blood Pressure 116/74 134/89 134/87 Pulse Oximetry 97 Oxygen Delivery Method Room Air 01/15/25 20:32 01/16/25 07:55 01/16/25 08:33 Temperature 98 F Pulse Rate 118 H Respiratory Rate Blood Pressure 134/89 132/66 132/66 Pulse Oximetry 97 Oxygen Delivery Method Room Air 01/16/25 08:33 01/16/25 08:33 01/16/25 09:00 Temperature 98 F Pulse Rate 118 H 118 H 98 Respiratory Rate Blood Pressure 132/66 132/66 Pulse Oximetry 97 Oxygen Delivery Method Room Air BMI result Body Mass Index 41.6 Labs 01/11/25 08:33 01/11/25 08:33 Imaging Radiology Impressions: ITS Impressions [facility] X-Ray 12/14/24 16:10 IMPRESSION: No intestinal obstruction pattern. Electronically signed by: Wero Montanez MD 12/17/2024 08:14 AM EDT RP Medications Medications Current Medications Acetaminophen (Acetaminophen 325 Mg Tablet) 650 mg PO Q6H PRN PRN Reason: Headache/Pain, Scale 1-10 Last Admin: 12/16/24 12:01 Dose: 650 mg Al Hydroxide/Mg Hydroxide (Magnesium Hydrox/Alum Hydrox 30 Ml Oral.Susp) 30 ml PO Q6H PRN PRN Reason: Heartburn/Nausea Benztropine Mesylate (Benztropine Mesylate 1 Mg Tablet) 1 mg PO BID [facility] Last Admin: 01/16/25 08:33 Dose: 1 mg Clonidine HCl (Clonidine Hcl 0.1 Mg Tablet) 0.1 mg PO BID [facility]; Protocol Last Admin: 01/16/25 08:33 Dose: 0.1 mg Fluphenazine HCl (Fluphenazine Hcl 5 Mg Tablet) 5 mg PO DAILY PRN PRN Reason: psychosis Last Admin: 01/15/25 22:48 Dose: 5 mg Fluphenazine HCl (Fluphenazine Hcl 5 Mg Tablet) 5 mg PO TID [facility] Last Admin: 01/16/25 08:32 Dose: 5 mg Hydroxyzine HCl (Hydroxyzine Hcl 25 Mg Tablet) 25 mg PO Q6H PRN PRN Reason: mild anxiety Last Admin: 01/15/25 22:48 Dose: 25 mg Lorazepam (Lorazepam 0.5 Mg Tablet) 0.5 mg PO Q4H PRN PRN Reason: Anxiety Last Admin: 01/11/25 18:25 Dose: 0.5 mg Lorazepam (Lorazepam 1 Mg Tablet) 2 mg PO QID [facility] Last Admin: 01/16/25 08:32 Dose: 2 mg Magnesium Hydroxide (Milk Of Magnesia 30 Ml Oral.Susp) 30 ml PO DAILY PRN PRN Reason: Constipation Nicotine (Nicotine 21 Mg Patch.Td24) 21 mg TRANSDERMA DAILY PRN PRN Reason: smoking cessation Last Admin: 12/11/24 08:41 Dose: 21 mg Nicotine Polacrilex (Nicotine Polacrilex 2 Mg Gum) 4 mg BUCCAL Q2H PRN PRN Reason: Nicotine Cravings Ondansetron HCl (Ondansetron Odt 4 Mg Tab.Rapdis) 4 mg TRANSLINGU Q6H PRN PRN Reason: Nausea and Vomiting Last Admin: 01/14/25 17:39 Dose: 4 mg Polyethylene Glycol (Polyethylene Glycol 3350 17 Gm Powd.Pack) 17 gm PO DAILY [facility] Last Admin: 01/16/25 08:32 Dose: 17 gm Polyethylene Glycol (Polyethylene Glycol 3350 17 Gm Powd.Pack) 17 gm PO DAILY PRN PRN Reason: continued Constipation Propranolol HCl (Propranolol Hcl 10 Mg Tablet) 10 mg PO TID [facility]; Protocol Last Admin: 01/16/25 08:33 Dose: 10 mg Thiamine HCl (Thiamine Hcl 100 Mg Tablet) 200 mg PO DAILY [facility] Last Admin: 01/16/25 08:33 Dose: 200 mg Trazodone HCl (Trazodone Hcl 100 Mg Tablet) 100 mg PO BEDTIME [facility] Last Admin: 01/15/25 20:31 Dose: 100 mg Allergies Allergies Allergy/AdvReac Type Severity Reaction Status Date / Time No Known Allergies Allergy Verified 12/09/24 12:43 Assessment & Plan Assessment & Plan (1) Schizoaffective disorder: Status: Acute Code(s): F25.9 - Schizoaffective disorder, unspecified (2) Catatonia: Status: Acute Code(s): F06.1 - Catatonic disorder due to known physiological condition (3) Cannabis use disorder: Status: Acute Code(s): F12.90 - Cannabis use, unspecified, uncomplicated Plan Admit, CV, One to One-SI, Disinhbition, Acute Psychosis Diagnostics as needed Collateral contact Milieu integration as tolerated Risperdal 2 mg bid Decrease Lorazepam to 0.5 mg q4h prn (pt is disinhibited, exposing himself) Depakote-continue Clonidine-continue Chlorpromazine prn (olanzapine has not been helpful by history) 12/12: DC Risperdal, Chlorpromazine Prolixin 5 bid and tid prn psychosis Increase Lorazapam to 1 mg tid Fe, CPK, CBCD, Myoglobin, EEG, B12,Folate, TSH, Valproate 12/14: KUB Continue current regime 12/15 remains with significant catatonic symptoms 1) Increased to Ativan 2mg QID. With increased dose, patient soon talked a little bit more (Ativan initially lowered out of concern that it was disinhibiting patient who was disrobing, however it seems more likely that this behavior is due to his psychotic disorganization than to effects of Ativan; currently. primary goal is to treat catatonia). 2)Discontinued Fluphenazine (for now) out of concern for antipsychotic being contributory to catatonia (also dc'd Depakote out of an abundance of caution) -Pt had told staff he has not had BM; KUB ordered but impression pending...Ordered Mirralx since no laxative ordered. Had nose bleed this morning which resolved on its own 12/16 still catatonic but a little more activity and talking a little more; though one word answers, pt responding appropriately to questions when asks. Says no voices, but later says AH remains. 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 Continue olanzapine 5 mg daily. 12/20 increase olanzapine to 7.5 mg daily 12/21 continue tx 12/22 seems to be responding to olanzapine ? if we could lower ativan a bit 12/23- agrees to inc olanzapine to 10mg, co feels sad and ah, but less catatonic- more engagable flat affect 12/25- Decrease Lorazepam to 2 mg tid, a decrease of 2 mg. 12/26: difficult to engage. +AH; continue current tx plan. 12/29: continue plan/regime 12/30: continue plan/regime 12/31: Decrease Lorazepam to tid due to pt reports of sedation. 01/02: Decrease Lorazepam to bid due to pt reports of sedation. 01/03: Increase Propranolol to 15 mg tid-anxiety, HTN sx. Family mtg 01/07. 01/04: Continue plan/regime. 01/05 lorazepam has been decreased he doesn't seem as well- and also co not sleeping well- ah- will review dec lorazepam but for tonight try trazodone scheduled instead of prn- which would mean he would have to actively ask for it and he may not be capable of that. 01/06 -add ativan 1mg q1pm, and prn prolixin 5mg 01/07- increase ativan to 2 mg tid 4/15 Patient reports that auditory hallucinations remain and are worse today than yesterday. He said last week for some amount of time he had zero AH (seems to have been for about 1-2 days); patient said they are louder today and saying to turn [himself] off... Patient agreed to titrating Prolixin; he said taking the p.r.n. 5 mg Prolixin did help for a little bit -will increase Prolixin to 5 mg q.i.d. (up from t.i.d.) on the off chance that higher dose is beneficial. 01/09. Continue regime/plan 01/10: CBCD, CMP Decrease Prolixin to tid and prn Increase Lorazepam to QID Decrease Propranolol to 10 mg tid 01/11: Continue tx 01/13: Continue current plans and regimen 01/14 No change in presentation. Patient remains internally preoccupied; reports AH continues to tell him to turn off patient denies plan/intention Affect remains mostly a combination of blunted and anxious -continue current treatment plan for now -consider Clozaril? ECT? 01/16: Will plan tentative DC for 01/18. Reason for continued inpatient stay Substantial Risk for: rapid decompensation Time Spent With Patient Time: Total time managing care of this patient today ____ minutes.
[2025-01-16 14:47] VITALS: BP 116/68; PULSE 104
[2025-01-16 20:00] VITALS: BP 131/60; PULSE 105; RESP 16; TEMP 36.5; O2SAT 97
[2025-01-16] MEDS: traZODone HCL 100 MG TABLET PO (20:36)
[2025-01-17 07:00] VITALS: BMI 41.9
[2025-01-17 08:00] VITALS: BP 138/74; PULSE 94; RESP 18; TEMP 37; O2SAT 97
[2025-01-17 08:56] VITALS: BP 138/74
[2025-01-17] MEDS: cloNIDine HCL 0.1 MG TABLET PO ×2 (08:56→20:35)
[2025-01-17 08:57] VITALS: BP 138/74; PULSE 94
[2025-01-17] MEDS: Propranolol HCL 10 MG TABLET PO ×3 (08:57→20:33)
[2025-01-17] MEDS: LORazepam 1 MG TABLET 2 MG PO ×4 (08:57→20:34)
[2025-01-17] MEDS: Thiamine HCL 100 MG TABLET 200 MG PO (08:57)
[2025-01-17] MEDS: fluPHENAZine HCl 5 MG TABLET PO ×3 (09:08→20:34)
[2025-01-17] MEDS: Benztropine Mesylate 1 MG TABLET PO ×2 (11:08→20:33)
[2025-01-17 20:00] VITALS: BP 130/90; PULSE 96; RESP 18; TEMP 36.4; O2SAT 97
[2025-01-17] MEDS: traZODone HCL 100 MG TABLET PO (20:33)
--- NOTE | 2025-01-17 21:20 | HO.PSYCHPN ---
Subjective Subjective Date of Service: 01/17/25 Reason For Visit: Psychosis Subjective Notes: Conditional Voluntary Healthcare Proxy: No Guardianship: No Medical Problems Affecting Mental Status: No Interim History: Denies SI,HI, AH,VH. No sx of acute regla or psychosis. Met with and [facility] [place]. Plan is to discharge 01/18. Pt asking appropriate questions about medicines, refills. States he will comply with med regime and attend all of his appts. He reports anxiety about leaving, yet is very happy to be going home. Medication Compliance: Yes Side effects from medications: No Attending Groups: Intermittent Review of Systems Acute medical concerns: No Review of Systems Review of Systems Denies Mental Status Exam Mental Status Exam Patient Appearance: Disheveled Patient Orientation: Person, Place, Time and Situation Level of Consciousness: Alert Patient Behavior: Talkative, Cooperative, Anxious, Distractible and Good Eye Contact Mood Description: Apprehensive Affect Description: Apprehensive Patient Cognition Impaired: No Ability to Follow Directions: Good Speech Pattern: Spontaneous Speech Memory Description: Episodic Impaired Hallucinations: None Delusions: Not Present Perceptual Disturbances: Depersonalization and Derealization Thought Process: Intact Thought Content: positive for Circumstantial and positive for Suicidal Ideation (denies) Depressive Symptoms: Increased Anxiety, Diff. Making Decisions and Thoughts of /Suicide (denies) Judgement: Good Diagnostics Vital Signs (24Hr): Vital Signs - 24 hr 01/17/25 08:00 01/17/25 08:56 01/17/25 08:57 Temperature 98.6 F Pulse Rate 94 94 Respiratory Rate 18 Blood Pressure 138/74 138/74 138/74 Pulse Oximetry 97 Oxygen Delivery Method Room Air 01/17/25 20:00 Temperature 97.6 F Pulse Rate 96 Respiratory Rate 18 Blood Pressure 130/90 H Pulse Oximetry 97 Oxygen Delivery Method Room Air BMI result Body Mass Index 41.9 Labs 01/11/25 08:33 01/11/25 08:33 Imaging Radiology Impressions: ITS Impressions KUB X-Ray 12/14/24 16:10 IMPRESSION: No intestinal obstruction pattern. Electronically signed by: Wero Montanez MD 12/17/2024 08:14 AM EDT Medications Medications Current Medications Acetaminophen (Acetaminophen 325 Mg Tablet) 650 mg PO Q6H PRN PRN Reason: Headache/Pain, Scale 1-10 Last Admin: 12/16/24 12:01 Dose: 650 mg Al Hydroxide/Mg Hydroxide (Magnesium Hydrox/Alum Hydrox 30 Ml Oral.Susp) 30 ml PO Q6H PRN PRN Reason: Heartburn/Nausea Benztropine Mesylate (Benztropine Mesylate 1 Mg Tablet) 1 mg PO BID [facility] Last Admin: 01/17/25 20:33 Dose: 1 mg Clonidine HCl (Clonidine Hcl 0.1 Mg Tablet) 0.1 mg PO BID [facility]; Protocol Last Admin: 01/17/25 20:35 Dose: 0.1 mg Fluphenazine HCl (Fluphenazine Hcl 5 Mg Tablet) 5 mg PO DAILY PRN PRN Reason: psychosis Last Admin: 01/15/25 22:48 Dose: 5 mg Fluphenazine HCl (Fluphenazine Hcl 5 Mg Tablet) 5 mg PO TID [facility] Last Admin: 01/17/25 20:34 Dose: 5 mg Hydroxyzine HCl (Hydroxyzine Hcl 25 Mg Tablet) 25 mg PO Q6H PRN PRN Reason: mild anxiety Last Admin: 01/15/25 22:48 Dose: 25 mg Lorazepam (Lorazepam 0.5 Mg Tablet) 0.5 mg PO Q4H PRN PRN Reason: Anxiety Last Admin: 01/11/25 18:25 Dose: 0.5 mg Lorazepam (Lorazepam 1 Mg Tablet) 2 mg PO QID [facility] Last Admin: 01/17/25 20:34 Dose: 2 mg Magnesium Hydroxide (Milk Of Magnesia 30 Ml Oral.Susp) 30 ml PO DAILY PRN PRN Reason: Constipation Nicotine (Nicotine 21 Mg Patch.Td24) 21 mg TRANSDERMA DAILY PRN PRN Reason: smoking cessation Last Admin: 12/11/24 08:41 Dose: 21 mg Nicotine Polacrilex (Nicotine Polacrilex 2 Mg Gum) 4 mg BUCCAL Q2H PRN PRN Reason: Nicotine Cravings Ondansetron HCl (Ondansetron Odt 4 Mg Tab.Rapdis) 4 mg TRANSLINGU Q6H PRN PRN Reason: Nausea and Vomiting Last Admin: 01/14/25 17:39 Dose: 4 mg Polyethylene Glycol (Polyethylene Glycol 3350 17 Gm Powd.Pack) 17 gm PO DAILY [facility] Last Admin: 01/17/25 11:04 Dose: Not Given Polyethylene Glycol (Polyethylene Glycol 3350 17 Gm Powd.Pack) 17 gm PO DAILY PRN PRN Reason: continued Constipation Propranolol HCl (Propranolol Hcl 10 Mg Tablet) 10 mg PO TID [facility]; Protocol Last Admin: 01/17/25 20:33 Dose: 10 mg Thiamine HCl (Thiamine Hcl 100 Mg Tablet) 200 mg PO DAILY [facility] Last Admin: 01/17/25 08:57 Dose: 200 mg Trazodone HCl (Trazodone Hcl 100 Mg Tablet) 100 mg PO BEDTIME [facility] Last Admin: 01/17/25 20:33 Dose: 100 mg Allergies Allergies Allergy/AdvReac Type Severity Reaction Status Date / Time No Known Allergies Allergy Verified 12/09/24 12:43 Assessment & Plan Assessment & Plan (1) Schizoaffective disorder: Status: Acute Code(s): F25.9 - Schizoaffective disorder, unspecified (2) Catatonia: Status: Acute Code(s): F06.1 - Catatonic disorder due to known physiological condition (3) Cannabis use disorder: Status: Acute Code(s): F12.90 - Cannabis use, unspecified, uncomplicated Plan Admit, CV, One to One-SI, Disinhbition, Acute Psychosis Diagnostics as needed Collateral contact Milieu integration as tolerated Risperdal 2 mg bid Decrease Lorazepam to 0.5 mg q4h prn (pt is disinhibited, exposing himself) Depakote-continue Clonidine-continue Chlorpromazine prn (olanzapine has not been helpful by history) 12/12: DC Risperdal, Chlorpromazine Prolixin 5 bid and tid prn psychosis Increase Lorazapam to 1 mg tid Fe, CPK, CBCD, Myoglobin, EEG, B12,Folate, TSH, Valproate 12/14: KUB Continue current regime 12/15 remains with significant catatonic symptoms 1) Increased to Ativan 2mg QID. With increased dose, patient soon talked a little bit more (Ativan initially lowered out of concern that it was disinhibiting patient who was disrobing, however it seems more likely that this behavior is due to his psychotic disorganization than to effects of Ativan; currently. primary goal is to treat catatonia). 2)Discontinued Fluphenazine (for now) out of concern for antipsychotic being contributory to catatonia (also dc'd Depakote out of an abundance of caution) -Pt had told staff he has not had BM; KUB ordered but impression pending...Ordered Mirralx since no laxative ordered. Had nose bleed this morning which resolved on its own 12/16 still catatonic but a little more activity and talking a little more; though one word answers, pt responding appropriately to questions when asks. Says no voices, but later says AH remains. 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 Continue olanzapine 5 mg daily. 12/20 increase olanzapine to 7.5 mg daily 12/21 continue tx 12/22 seems to be responding to olanzapine ? if we could lower ativan a bit 12/23- agrees to inc olanzapine to 10mg, co feels sad and ah, but less catatonic- more engagable flat affect 12/25- Decrease Lorazepam to 2 mg tid, a decrease of 2 mg. 12/26: difficult to engage. +AH; continue current tx plan. 12/29: continue plan/regime 12/30: continue plan/regime 12/31: Decrease Lorazepam to tid due to pt reports of sedation. 01/02: Decrease Lorazepam to bid due to pt reports of sedation. 01/03: Increase Propranolol to 15 mg tid-anxiety, HTN sx. Family mtg 01/07. 01/04: Continue plan/regime. 01/05 lorazepam has been decreased he doesn't seem as well- and also co not sleeping well- ah- will review dec lorazepam but for tonight try trazodone scheduled instead of prn- which would mean he would have to actively ask for it and he may not be capable of that. 01/06 -add ativan 1mg q1pm, and prn prolixin 5mg 01/07- increase ativan to 2 mg tid 01/08 Patient reports that auditory hallucinations remain and are worse today than yesterday. He said last week for some amount of time he had zero AH (seems to have been for about 1-2 days); patient said they are louder today and saying to turn [himself] off... Patient agreed to titrating Prolixin; he said taking the p.r.n. 5 mg Prolixin did help for a little bit -will increase Prolixin to 5 mg q.i.d. (up from t.i.d.) on the off chance that higher dose is beneficial. 01/09. Continue regime/plan 01/10: CBCD, CMP Decrease Prolixin to tid and prn Increase Lorazepam to QID Decrease Propranolol to 10 mg tid 01/11: Continue tx 01/13: Continue current plans and regimen 01/14 No change in presentation. Patient remains internally preoccupied; reports continues to tell him to turn off patient denies plan/intention Affect remains mostly a combination of blunted and anxious -continue current treatment plan for now -consider Clozaril? ECT? 01/16: Will plan tentative DC for 01/18. 01/17: DC 01/18. Family meeting prior to discharge. Reason for continued inpatient stay Substantial Risk for: rapid decompensation Time Spent With Patient Time: Total time managing care of this patient today ____ minutes.
[2025-01-17] MEDS: LORazepam 0.5 MG TABLET PO (23:06)
[2025-01-17] MEDS: hydrOXYzine HCL 25 MG TABLET PO (23:06)
[2025-01-18 08:06] VITALS: BP 152/78; PULSE 95; TEMP 36.8; O2SAT 98
[2025-01-18] MEDS: LORazepam 1 MG TABLET 2 MG PO ×3 (08:45→16:41)
[2025-01-18] MEDS: Propranolol HCL 10 MG TABLET PO ×2 (08:45→14:49)
[2025-01-18] MEDS: polyethylene glycoL 3350 17 GM POWD.PACK PO (08:45)
[2025-01-18] MEDS: cloNIDine HCL 0.1 MG TABLET PO (08:45)
[2025-01-18] MEDS: Thiamine HCL 100 MG TABLET 200 MG PO (08:46)
[2025-01-18] MEDS: fluPHENAZine HCl 5 MG TABLET PO ×2 (08:46→14:49)
[2025-01-18] MEDS: Benztropine Mesylate 1 MG TABLET PO (09:16)
--- NOTE | 2025-01-18 09:41 | PM.PSYDC ---
DS: Providers Provider Date of admission: 12/10/24 11:46 Primary care physician: None Physician DS: Diagnosis Discharge Diagnosis (1) Schizoaffective disorder: Status: Acute (2) Catatonia: Status: Acute (3) Cannabis use disorder: Status: Acute DS: Medications Discharge Medications Home Medications: Previous Rx's ?Medication ?Instructions ?Recorded benztropine 1 mg tablet 1 mg PO BID #60 tabs 01/17/25 clonidine HCl 0.1 mg tablet 0.1 mg PO BID #60 tabs 01/17/25 fluphenazine HCl 5 mg tablet 5 mg PO TID #90 tabs 01/17/25 lorazepam 2 mg tablet 2 mg PO QID #28 tabs 01/17/25 polyethylene glycol 3350 17 gram 17 g PO DAILY #30 ea 01/17/25 oral powder packet propranolol 10 mg tablet 10 mg PO TID #90 tabs 01/17/25 thiamine mononitrate (vit B1) 100 200 mg (2 x 100 mg) PO DAILY #60 01/17/25 mg tablet tabs trazodone 100 mg tablet 100 mg PO BEDTIME #30 tabs 01/17/25 Data Data Completed and Pending Completed studies during hospitalization [Text1]: 12/25/24 13:42 Urine clean catch - Clean Catch Midstream Urine Culture - Final No growth. Imaging Diagnostic Imaging Impressions KUB X-Ray 12/14/24 16:10 IMPRESSION: No intestinal obstruction pattern. Electronically signed by: Wero Montanez MD 12/17/2024 08:14 AM EDT DS: Summary Time Spent with Patient Time attestation: Total time managing care of this patient today ____ minutes. Discharge Plan Discharge Anticipated Discharge Date/Time: 01/18/25 16:00 Patient Disposition: Home, Self-Care Discharge Diagnosis: PTSD Schizoaffective Disorder Cannabis use disorder Catatonia-resolving Referrals: [facility] Primary Care with Dr. Chanel [Other] - 03/21/25 10:30 am ( also requested a referral be made for therapy and case management during this appointment. ) Physician,None [Primary Care Provider] - 1 Week Discharge Medications: New clonidine HCl 0.1 mg Tablet 0.1 mg PO BID Qty: 60 0RF Protocol: Hold for SBP< HOLD for SBP < : 90 polyethylene glycol 3350 17 gram Powder In Packet 17 g PO DAILY Qty: 30 0RF propranolol 10 mg Tablet 10 mg PO TID Qty: 90 0RF Protocol: Hold for SBP/HR < HOLD for SBP < : 90 HOLD for HR < : 60 trazodone 100 mg Tablet 100 mg PO BEDTIME Qty: 30 0RF benztropine 1 mg Tablet 1 mg PO BID Qty: 60 0RF fluphenazine HCl 5 mg Tablet 5 mg PO TID Qty: 90 0RF thiamine mononitrate (vit B1) 100 mg Tablet 200 mg PO DAILY Qty: 60 0RF lorazepam 2 mg tablet 2 mg PO QID Qty: 28 4RF Rx Instructions: Resolving catatonia Discontinued clonidine HCl 0.1 mg Tablet 0.1 mg PO BID Qty: 60 0RF Protocol: Hold for SBP< HOLD for SBP < : 90 trazodone 50 mg Tablet 50 mg PO BEDTIME MRX1 PRN (Reason: Insomnia) Qty: 30 0RF prazosin 1 mg Capsule 2 mg PO BEDTIME Qty: 60 0RF Protocol: Hold for SBP< HOLD for SBP < : 90 benztropine 1 mg Tablet 1 mg PO BID Qty: 60 0RF hydroxyzine HCl 25 mg Tablet 25 mg PO Q6H PRN (Reason: mild anxiety) Qty: 30 0RF fluphenazine HCl 5 mg Tablet 5 mg PO TID Qty: 90 0RF divalproex [Depakote] 125 mg tablet,delayed release (DR/EC) 125 mg PO TID Qty: 90 0RF Rx Instructions: 375 mg three times per day divalproex [Depakote] 250 mg tablet,delayed release (DR/EC) 250 mg PO TID Qty: 90 0RF Rx Instructions: 375 mg three times per day clonidine HCl 0.1 mg Tablet 0.1 mg PO BID 30 Days Qty: 60 0RF Protocol: Hold for SBP< HOLD for SBP < : 90 mirtazapine 15 mg tablet 15 mg PO BEDTIME Qty: 30 0RF propranolol 20 mg tablet 20 mg PO TID Qty: 90 0RF lorazepam [Ativan] 1 mg tablet 1 mg PO BID 30 Days Qty: 60 0RF Discharge Orders: Discharge Order (Routine); Ordered 01/18/25 Ordered By: Carla Corey Diet: Advance to usual diet Activity on Discharge: As tolerated Stand Alone Forms: Patient Portal Discharge page Print Language: Indian Care Plan Goals: Mood and Behavioral Stabiization Abstinence from Substances Health Concerns: Mood and Behavioral Stabilization Abstinence from Substances Plan of Treatment: Attend scheduled appointments Take medications as directed Assessment: Denies SI,HI, AH,VH No sx of acute psychosis, regla Significant anxiety due to concern that he will be required to deport due to current political environment
[2025-01-18 14:49] VITALS: BP 140/80
== END 2025-01-18 16:45 | disposition home or self-care (01) | DRG 750 ==
LOC: HO.ED 12-10 07:54 → HO.PM5 12-10 11:46
PROVIDERS: Registered Nurse Emergency; Admitting Provider Psychiatry & Neurology Psychiatry; Emergency Provider Emergency Medicine; Visit Provider Clinical Nurse Specialist Psychiatric/Mental Health, Adult
DX: F25.9 Schizoaffective disorder, unspecified (principal); F06.1 Catatonic disorder due to known physiological condition; F12.90 Cannabis use, unspecified, uncomplicated; Z20.822 Contact with and (suspected) exposure to COVID-19; F17.210 Nicotine dependence, cigarettes, uncomplicated; Z91.148 Patient's other noncompliance with medication regimen for other reason; Z71.6 Tobacco abuse counseling; Z79.899 Other long term (current) drug therapy
CPT/HCPCS: 0241U; 36415; 74018; 80053; 80061; 80164; 80307; 81003; 82550; 82607; 82746; 83036; 83540; 83874; 84443; 84484; 85025; 87086; 93005; 95816; 99285; S9485

== ENCOUNTER → 2024-12-09 12:46 | Outpatient (BNV) | payer MEDICAID, SELFPAY | PROVIDERS: Admitting Provider Psychiatry & Neurology Psychiatry; Emergency Provider Emergency Medicine; Visit Provider Internal Medicine Cardiovascular Disease | DX: R00.0 Tachycardia, unspecified (principal) | CPT/HCPCS: 93010 ==

== ENCOUNTER → 2024-12-10 06:14 | Outpatient (BNV) | payer MEDICAID, SELFPAY | PROVIDERS: Admitting Provider Psychiatry & Neurology Psychiatry; Emergency Provider Emergency Medicine; Visit Provider Internal Medicine Cardiovascular Disease | DX: R00.0 Tachycardia, unspecified (principal) | CPT/HCPCS: 93010 ==

== ENCOUNTER 2024-12-10 11:46 | Outpatient (BNV) | payer SELFPAY | END 2024-12-14 16:10 | PROVIDERS: Admitting Provider Psychiatry & Neurology Psychiatry; Emergency Provider Emergency Medicine; Visit Provider Radiology Diagnostic Radiology | DX: K59.00 Constipation, unspecified (principal) | CPT/HCPCS: 74018 ==

== ENCOUNTER 2024-12-10 11:46 | Outpatient (BNV) | payer SELFPAY | END 2024-12-24 15:24 | PROVIDERS: Admitting Provider Psychiatry & Neurology Psychiatry; Emergency Provider Emergency Medicine; Visit Provider Internal Medicine | DX: R07.9 Chest pain, unspecified (principal) | CPT/HCPCS: 93010 ==

== ENCOUNTER → 2024-12-10 11:46 | Outpatient (BNV) | payer SELFPAY | PROVIDERS: Admitting Provider Psychiatry & Neurology Psychiatry; Emergency Provider Emergency Medicine; Visit Provider Clinical Nurse Specialist Psychiatric/Mental Health, Adult | DX: F25.9 Schizoaffective disorder, unspecified (principal); F06.1 Catatonic disorder due to known physiological condition; F12.90 Cannabis use, unspecified, uncomplicated | CPT/HCPCS: 90792; 99231; 99232 ==

== ENCOUNTER 2025-02-11 10:00 | Outpatient (AMB) | payer SELFPAY ==
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
--- OUTSIDE RECORDS SUMMARY | 2025-02-20 11:00 | XMS_ITS | Clinical Summary ---
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 Role Phone Unavailable Primary Care Provider Unavailabl e Social History Tobacco Use Types Packs/Day Years Used Date Smoking Tobacco: Never Assessed Sex and Gender Information Value Date Recorded Sex Assigned at Not on file Legal Sex Male 10:53 AM EDT Gender Identity Not on file Sexual Orientation Not on file Plan of Treatment Upcoming Encounters Date Type Department Care Team ([facility] Contact Info) Description 03/21/2025 10:45 AM EDT Office Visit [facility] [address] [place] [id number] Name, MD Luis [address] [place] [id number] Health Maintenance Due Date Last Done Comments Chlamydia and Gonorrhea Screening 2002 Depression Screening 2002 HIV Screening 2002 SDOH Screening 2002 Disability Screening 2002 Alcohol/Substance Use Screening 2014 Tobacco Screening 2014 Family Planning (PISQ) 2017 HPV Vaccines (1 - Male 3-dos e series) 2017 Meningococcal B Vaccine (1 o f 2 - Standard) 2018 Hepatitis C Screening 2020 DTaP/Tdap/Td Vaccines (1 - Tdap) 2021 Hepatitis B Vaccines (1 of 3 - 19+ 3-dose series) 2021 COVID-19 Vaccine (1 - 2023-2 5 season) 2024 Zoster Vaccines (1 of 2) 2052 RSV Patients and Pa tients Aged 60 years or older (1 - 1-dose 75+ series) 2077 Influenza Vaccine Completed 10/17/2024 HIB Vaccines Aged Out No longer eligi ble based on patient's age to complete this topic Hepatitis A Vaccines Aged Out No long er eligible based on patient's age to complete this topic IPV Vaccines Aged Out No longer eligi ble based on patient's age to complete this topic Meningococcal Vaccine Aged Out No rocky nataly eligible based on patient's age to complete this topic Pneumococcal Vaccine: Pediat rics (0 to 5 Years) and At-Risk Patients (6 to 49) Years) Aged Out No longer elig ible based on patient's age to complete this topic RSV under 20 months Aged Out No longe r eligible based on patient's age to complete this topic Rotavirus Vaccines Aged Out No longer eligible based on patient's age to complete this topic Insurance [employer]
== END 2025-02-11 11:00 | disposition home or self-care (01) ==
PROVIDERS: Visit Provider Clinical Nurse Specialist Psychiatric/Mental Health, Adult
DX: F12.90 Cannabis use, unspecified, uncomplicated (principal); F25.1 Schizoaffective disorder, depressive type
CPT/HCPCS: 99212

== ENCOUNTER → 2025-02-11 10:00 | Outpatient (BNVA) | payer SELFPAY | PROVIDERS: Visit Provider Clinical Nurse Specialist Psychiatric/Mental Health, Adult | DX: F12.90 Cannabis use, unspecified, uncomplicated (principal); F25.1 Schizoaffective disorder, depressive type | CPT/HCPCS: 99212 ==

== ENCOUNTER 2025-03-18 09:51 | Outpatient (AMB) | payer SELFPAY ==
--- OUTSIDE RECORDS SUMMARY | 2025-03-18 10:43 | XMS_ITS | Clinical Summary ---
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 [address] [place] [address] Belinda Laguna MD 03/13/2025 Patient [facility] [address] [place] [address] Luis Chanel MD Pre-visit Planning (SDOH negative, Tobacco screening negative. ) from Last 3 Months Social History Tobacco Use Types Packs/Day Years Used Date Smoking Tobacco: Never Assessed Housing Stability Answer Date Recorded What is your housing situation today? I have pat ramirez 03/13/[address] you li ve. Do you have problems with any of the following? None of the above 03/13/2025 Food Insecurity Answer Date Recorded Within the past 12 months, y ou worried that your food would run out before you got money to buy more: Never True 03/13/2025 Within the past 12 months,th e food you bought just didn't last and you didn't have enough money to get more: Never True Transportation Answer Date Recorded In the past 12 months, has l ack of transportation kept you from medical appts, meetings, work or from getting things needed for daily living? No 03/13/2025 Utilities Answer Date Recorded In the past 12 months, has t he electric, gas, oil or water company threatened to shut off services in your home? No 03/13/2025 Internet Access Answer Date Recorded Internet Access Q1 Yes 03/13/2025 Internet Access Q2 Not on file 03/13/2025 Sex and Gender Information Value Date Recorded Sex Assigned at Not on file Legal Sex Male 10:53 AM EDT Gender Identity Not on file Sexual Orientation Not on file Plan of Treatment Upcoming Encounters Date Type Department Care Team ([facility] st Contact Info) Description 03/21/2025 10:45 AM EDT Office Visit [facility] [address] [place] [address] Name, MD Luis [address] [place] [address] Health Maintenance Due Date Last Done Comments Chlamydia and Gonorrhea Screening 2002 Depression Screening 2002 HIV Screening 2002 Disability Screening 2002 Alcohol/Substance Use [...] Vaccine (1 - 2023-2 5 season) 2024 SDOH Screening 03/13/2026 03/13/2025 Zoster Vaccines (1 of 2) 2052 RSV [...] Years) and At-Risk Patients (6 to 49) Years Aged Out No longer eligi ble based on patient's age to complete this topic RSV under 20 months Aged Out No longe r eligible based on patient's age to complete this topic Rotavirus Vaccines Aged Out No longer eligible based on patient's age to complete this topic Insurance [employer]
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
== END 2025-03-18 10:25 | disposition home or self-care (01) ==
LOC: HO.HOP 09:51
PROVIDERS: Visit Provider Clinical Nurse Specialist Psychiatric/Mental Health, Adult
DX: F25.1 Schizoaffective disorder, depressive type (principal); F12.90 Cannabis use, unspecified, uncomplicated
CPT/HCPCS: 99213

== ENCOUNTER → 2025-03-18 09:51 | Outpatient (BNVA) | payer SELFPAY ==
--- NOTE | 2025-04-18 18:01 | PM.EVENT ---
Event Note Date of Service: 04/18/25 Event Note: Spoke with Dr. Chanel 04/17/2025 the patient has been on lorazepam 2 mg q.i.d. since discharge from the hospital treatment of schizoaffective disorder with catatonia. Did discuss with Dr. Chanel the patient's condition and history he said that he would continue prescribing the patient's psychiatric medication. I am prescribing 1 week at this time of to q.i.d.. Patient would benefit from psychiatric follow-up has available. Eventually I would anticipate a very gradual taper of lorazepam over time. Will send copy of this to Dr. Chanel patient's PCP at the [facility] Time Spent With Patient Time: Total time managing care of this patient today ____ minutes.
== END ==
PROVIDERS: Visit Provider Clinical Nurse Specialist Psychiatric/Mental Health, Adult
DX: F25.1 Schizoaffective disorder, depressive type (principal); F12.20 Cannabis dependence, uncomplicated
CPT/HCPCS: 99212; 99499

== ENCOUNTER 2025-04-12 09:41 | Outpatient (REF) | payer MEDICAID, SELFPAY ==
--- OUTSIDE RECORDS SUMMARY | 2025-04-12 09:51 | XMS_ITS | Clinical Summary ---
Author Organization [facility] Address [address] [place] [phone] Phone Care Team Providers Care Desk Assistant Name Role Phone Physician, No Pcp Primary Care Provider Unavaila ble Allergies No known active allergies Medications diphenhydrAMINE (BENADRYL) 25 mg tablet Take 1 capsule by mouth every 6 hours as needed for anxiety 24 tablet 10/27/2024 Active Active Problems No known active problems Medical History Medical History Date Comments No [...] 100 10/27/2024 11:27 PM EST Temperature 36.9 C (98.4 F) 10/27/2024 11:27 PM EST Respiratory Rate 17 10/27/2024 11:27 PM EST [...] (1 o f 2 - Standard) 2018 DTaP,Tdap,and Td Vaccines (1 - Tdap) 2021 Hepatitis B Vaccines (1 of 3 - 19+ 3-dose series) 2021 COVID-19 Vaccine (1 - 2023-2 5 season) 2024 Depression Screening 09/26/2024 HIV Screening 10/09/2024 Hepatitis C Screening 10/09/2024 Social Influencers of Health Screening 10/09/2024 Influenza Vaccine (#1) 2025 10/17/2024 HIB Vaccines Aged Out No longer [...] 5 Years) and At-Risk Patients (6 to 49 Years) Aged Out No longer eligi ble based on patient's age to complete this topic RSV Immunization Patients Un elia 20 months Aged Out No longer eligible b ased on patient's age to complete this topic Varicella Vaccines Aged Out No longer eligible based on patient's age to complete this topic Insurance MEDICAID - [place] Care Teams Desk Assistant Relationship Specialty Start Date End Date Physician, No Pcp PCP - General 10/09/24
--- OUTSIDE RECORDS SUMMARY | 2025-04-12 09:51 | XMS_ITS | Clinical Summary ---
Author Organization [facility] [employer] Address [address] [place] [address] Care Team Providers Care Vice President Of Advertising Name Role Phone Name, Luis ROSALES Primary Care Provider [phone] Allergies No known active allergies Medications * This document contains information received from the source organization and may not represent a complete record from that organization. benztropine (Cogentin) 1 MG tablet Take 1 tablet by mouth 2 times daily. 03/18/2025 Active cloNIDine (Catapres) 0.1 MG tablet Take 1 tablet by mouth 2 times daily. 03/18/2025 Active fluPHENAZine (Prolixin) 5 MG tablet Take 1 tablet by mouth every 6 (six) hours during the day. 03/18/2025 Active LORazepam (Ativan) 2 MG tablet Take 1 tablet by mouth every 6 (six) hours. 03/13/2025 Active mirtazapine (Remeron) 15 MG tablet 15 mg. 03/18/2025 Active propranolol (Inderal) 10 MG tablet Take 2 tablets by mouth every 6 (six) hours during the day. 03/12/2025 Active thiamine (Vitamin B-1) 100 MG tablet Take 2 tablets by mouth Once per day. 03/18/2025 Active Active Problems Problem Noted Date Diagnosed Date Other schizophrenia 03/28/2025 Encounters * This document contains information received from the source organization and may not represent a complete record from that organization. Date Type Department Care Team Description 03/21/2025 10:45 AM EDT Office Visit [facility] [address] [place] [phone] Name, MD Luis Paranoid schizophrenia (CMS/HCC) (Primary Dx); Morbid obesity (CMS/HCC) 03/21/2025 Travel 03/20/2025 Telephone [facility] [address] [place] [address] [place] [address] Carina Machado MA Chart Prep 03/13/2025 Patient Outreach [facility] [address] [place] [address] Belinda Laguna MD 03/13/2025 Patient Outreach [facility] [address] [place] [address] Luis Chanel MD Pre-visit Planning (SDOH negative, Tobacco screening negative. ) from Last 3 Months Immunizations Immunization Administration Dates Next Due Influenza, seasonal, injectable, preservative fr ee 10/17/2024 Family History Medical History Relation Name Comments No Known Problems Father Relation Name Status Comments Father Social History Tobacco Use Types Packs/Day Years Used Date Smoking Tobacco: Never Smokeless Tobacco: Never Tobacco Cessation:Counseling Given: Not Answered Alcohol Use Standard Drinks/Week Comments Never 0 (1 standard drink = 0.6 oz pur e alcohol) Depression Answer Date Recorded Patient Health Questionnaire-9 Score 4 03/21/2025 Patient Health Questionnaire-9 Score 4 03/21/2025 Last PHQ-9: Questionnaire Data Not on file 0 03/21/2025 Housing Stability Answer Date Recorded What is [...] off services in your home? No 03/13/2025 Depression Answer Date Recorded Patient Health Questionnaire-2 Score 2 03/21/2025 Internet Access Answer Date Recorded Internet Access Q1 Yes 03/13/2025 Internet Access Q2 Not on file 03/13/2025 Sex and Gender Information Value Date Recorded Sex Assigned at Male 03/21/2025 8:48 AM EDT Legal Sex Male 10:53 AM EDT Gender Identity Male 03/21/2025 8:48 AM EDT Sexual Orientation Straight 03/21/2025 8: 48 AM EDT Last Filed Vital Signs Vital Sign Reading Time Taken Comments Blood Pressure 130/89 03/21/2025 11:01 AM EDT Pulse 106 03/21/2025 11:01 AM EDT Temperature 36.2 C (97.2 F) 03/21/2025 11:01 AM EDT Respiratory Rate 21 03/21/2025 11:01 AM EDT Oxygen Saturation 98% 03/21/2025 11:01 AM EDT Inhaled Oxygen Concentration - - Weight 149 kg (328 lb) 03/21/2025 11:01 AM EDT Height 172.7 cm (5' 8 ) 03/21/2025 11:01 AM EDT Body Mass Index 49.87 03/21/2025 11:01 AM EDT Plan of Treatment Health Maintenance Due Date Last Done Comments Chlamydia and Gonorrhea Screening 2002 HIV Screening 2002 Lipid Panel 2002 Alcohol/Substance Use Screening 2014 Family Planning (PISQ) 2017 HPV Vaccines (1 - Male 3-dos e series) 2017 Meningococcal B Vaccine (1 o f 2 - Standard) 2018 Hepatitis C Screening 2020 DTaP/Tdap/Td Vaccines (1 - Tdap) 2021 Hepatitis B Vaccines (1 of 3 - 19+ 3-dose series) 2021 COVID-19 Vaccine (1 - 2023-2 5 season) 2024 Influenza Vaccine (#1) 2025 10/17/2024 SDOH Screening 03/13/2026 03/13/2025 Depression Screening 03/21/2026 03/21/2025, 03/21/2025 Disability Screening 03/21/2026 03/21/2025 Tobacco Screening 03/21/2026 03/21/2025 Zoster Vaccines (1 of 2) 2052 RSV Patients and Patients Aged 60 years or older (1 - 1-dose 75+ series) 2077 HIB Vaccines Aged Out No longer eligi [...] age to complete this topic Pneumococcal Vaccine: Pediatrics (0 to 5 Years) and At-Risk Patients (6 to 49) Years Aged Out No longer eligible b ased on patient's age to complete this topic RSV under 20 months Aged Out No longe r eligible based on patient's age to complete this topic Rotavirus Vaccines Aged Out No longer eligible based on patient's age to complete this topic [facility] Care Teams Vice President Of Advertising Relationship Specialty Start Date End Date Name, MD Luis [address] [place] [address] PCP - General Internal Medicine 04/02/25
[2025-04-12 11:29] LABS: MANUAL DIFF FLAG NO
[2025-04-12 11:35] LABS: Hematocrit 45.1 % (42.0-52.0); Hemoglobin 15.3 g/dl (14.0-18.0); Imm Gran Abs Auto 0.05 X10*3/uL (0.00-0.03); Imm Gran Pct Auto 0.5 % (0.0-0.4); Lymphocytes Absolute Auto 3.9 X10*3/uL (1.2-4.9); Mean Corpuscular HGB Conc 33.9 g/dl (31.0-36.0); Mean Corpuscular Hemoglobin 30.2 pg (27.0-33.0); Mean Corpuscular Volume 89.1 fL (80.0-98.0); NRBC Abs Auto 0.000 X10*3/uL (0.0-0.012); NRBC Pct Auto 0.0 /100WBC (0.0-0.2); Platelet Count 268 X10*3/uL (160-400); Red Blood Count 5.06 X10*6/uL (4.60-5.80); White Blood Count 10.0 X10*3/uL (4.8-10.8)
[2025-04-12 12:01] LABS: Alanine Aminotransferase 89 U/L (0-40); Albumin Level 4.1 g/dL (3.5-5.0); Alkaline Phosphatase 107 U/L (39-117); Anion Gap 11 (12-20); Aspartate Amino Transferase 50 U/L (5-37); Blood Urea Nitrogen 10 mg/dL (9-16); Calcium 9.1 mg/dL (8.4-10.2); Carbon Dioxide 28 mmol/L (22-29); Chloride 108 mmol/L (96-108); Cholesterol 155 mg/dL (<200); Estimated Glomerular Filt Rate > 60; HDL Cholesterol 36 mg/dL (>40); Potassium 4.0 mmol/L (3.3-5.1); Sodium 143 mmol/L (135-145); Total Protein 7.0 g/dL (6.5-8.0); Triglycerides 248 mg/dL (<150)
== END 2025-04-12 09:42 | disposition home or self-care (01) ==
LOC: HO.HHCL 09:41
PROVIDERS: PCP Internal Medicine Geriatric Medicine; Visit Provider Internal Medicine Geriatric Medicine
DX: F20.0 Paranoid schizophrenia (principal); E66.01 Morbid (severe) obesity due to excess calories
CPT/HCPCS: 36415; 80053; 80061; 84443; 85025